=== PATIENT | female | born 1995 | race African-American/Black ===

== ENCOUNTER → 2016-10-14 | Outpatient (CLI) | payer MEDICARE, MEDICAID | LOC: RAD 12:25 | PROVIDERS: ATTEND Internal Medicine | DX: R05 Cough (principal); R06.02 Shortness of breath; M79.672 Pain in left foot; M84.375D Stress fracture, left foot, subsequent encounter for fracture with routine healing; X58.XXXD Exposure to other specified factors, subsequent encounter | CPT/HCPCS: 71020 ==

== ENCOUNTER 2016-11-02 07:39 | Inpatient (IN) | payer MEDICARE, MEDICAID ==
--- NOTE | 2016-11-02 09:10 | ER Document Report ---
ED GI/ - General Chief Complaint: Nausea/Vomiting Stated Complaint: BODY PAIN Time seen by provider: 09:10 Mode of Arrival: Ambulatory Information source: Patient Notes: 21 yo vikram with chronic pain due to Lupus, saw dr. Ku on , dx with pneumonia but has been unable to keep the levoquin down due to nausea, vomiting. 7 pound weight loss since last week. No diarrhea or abd pain. Congested cough. TRAVEL OUTSIDE OF THE [place] IN LAST 30 DAYS: No - Related Data Allergies/Adverse Reactions: shellfish derived Allergy (Severe, Verified 11/02/16 07:55) Anaphylaxis ketorolac tromethamine [From Toradol] Allergy (Intermediate, Verified 11/02/16 07:55) Hives morphine [Morphine] Allergy (Intermediate, Verified 11/02/16 07:55) Hives sulfamethoxazole [From Bactrim] Allergy (Unknown, Verified 11/02/16 07:55) Pruritis trimethoprim [From Bactrim] Allergy (Unknown, Verified 11/02/16 07:55) Pruritis belimumab [From Benlysta] Allergy (Verified 11/02/16 07:55) rash Home Medications: Current Home Medications Albuterol Sulfate [Ventolin Hfa] 2 puff PO ASDIR PRN 11/02/16 [History] Atenolol [Tenormin] 25 mg PO DAILY 11/02/16 [History] Butalb/Acetaminophen/Caffeine [Fioricet (50-325-40 mg) Tablet] 1 tab PO ASDIR PRN 11/02/16 [History] Clobetasol Propionate [Clobetasol Propionate Cream] 1 applic TOP ASDIR PRN 11/02 [History] Clonidine HCl [Catapres 0.3 mg Tablet] 0.3 mg PO TID 11/02/16 [History] Eszopiclone [Lunesta] 3 mg PO HSP PRN 11/02/16 [History] Fluticasone Propionate [Flonase Nasal [place] 50 Mcg/[place] 16 gm] 1 spray NASL ASDIR PRN 11/02/16 [History] Fondaparinux Sodium [Arixtra Inj 2.5 mg/0.5 ml Disp.syrin] 2.5 mg SQ DAILY 11/02 [History] Hydroxychloroquine Sulfate [Plaquenil 200 mg Tablet] 200 mg PO DAILY 11/02/16 [ History] Hydroxyzine HCl [Atarax 50 mg Tablet] 50 mg PO ASDIR PRN 11/02/16 [History] Levetiracetam [Keppra] 7.5 ml PO BID 11/02/16 [History] Metoprolol Tartrate [Lopressor 50 mg Tablet] 50 mg PO BID 11/02/16 [History] Nystatin/Dexameth/Diphen [Magic Mouthwash] 5 ml PO QID 11/02/16 [History] Ondansetron HCl [Zofran 8 mg Tablet] 8 mg PO PRN PRN 11/02/16 [History] Oxycodone HCl/Acetaminophen [Percocet 10-325 mg Tablet] 1 tab PO QID 11/02/16 [ History] Pantoprazole Sodium [Protonix] 40 mg PO QAM 11/02/16 [History] Prednisone 20 mg PO DAILY 11/02/16 [History] Promethazine HCl [Phenergan 25 mg Tablet] 25 mg PO PRN PRN 11/02/16 [History] Tizanidine HCl [Zanaflex 4 mg Tablet] 8 mg PO QIDP PRN 11/02/16 [History] Zolpidem Tartrate [Ambien] 10 mg PO QHS 11/02/16 [History] Past Medical History - General Information source: Patient - Social History Smoking Status: Never Smoker Chew tobacco use (# tins/day): No Frequency of alcohol use: None Drug Abuse: None Family History: Reviewed & Not Pertinent Patient has suicidal ideation: No Patient has homicidal ideation: No - Past Medical History Cardiac Medical History: Reports: Hx DVT - INF. 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 Denies: Hx Hysterectomy - Immunizations Immunizations up to date: Yes Hx Diphtheria, Pertussis, Tetanus Vaccination: Yes Hx Pneumococcal Vaccination: 10/04/14 Review of Systems - Review of Systems Constitutional: Weight loss, Recent illness EENT: No symptoms reported Cardiovascular: No symptoms reported Respiratory: See HPI Gastrointestinal: See HPI Genitourinary: No symptoms reported Female Genitourinary: No symptoms reported Musculoskeletal: No symptoms reported Skin: No symptoms reported Hematologic/Lymphatic: No symptoms reported Neurological/Psychological: No symptoms reported Physical Exam - Vital signs Vitals: Temp Pulse Resp BP Pulse Ox 99.1 F 112 H 20 108/71 95 11/02/16 07:58 11/02/16 07:58 11/02/16 07:58 11/02/16 07:58 11/02/16 07:58 Interpretation: Tachycardic - General General appearance: Alert Notes: very thin, congested cough - HEENT Head: Normocephalic, Atraumatic Eyes: Normal Pupils: PERRL Tympanic membrane: Normal Pharynx: Normal Neck: Supple - Respiratory Respiratory status: No respiratory distress Chest status: Nontender Breath sounds: Rhonchi - right Chest palpation: Normal - Cardiovascular Rhythm: Regular Heart sounds: Normal auscultation Murmur: No - Abdominal Inspection: Normal Distension: No distension Bowel sounds: Normal Tenderness: Nontender. No: Tender - colostomy bag on chronic leaking from gasrostomy tub Organomegaly: No organomegaly - Back Back: Normal, Nontender. No: CVA tenderness - Extremities General upper extremity: Normal inspection, Nontender, Normal color, Normal ROM , Normal temperature General lower extremity: Normal inspection, Nontender, Normal color, Normal ROM , Normal temperature, Normal weight bearing. No: Darby's sign - Neurological Neuro grossly intact: Yes Cognition: Normal Orientation: AAOx4 [place] Coma Scale Eye Opening: Spontaneous Shawn Coma Scale Verbal: Oriented Shawn Coma Scale Motor: Obeys Commands [place] Coma Scale Total: 15 Speech: Normal Motor strength normal: LUE, RUE, LLE, RLE Sensory: Normal - Psychological Associated symptoms: Normal affect, Normal mood - Skin Skin Temperature: Warm Skin Moisture: Dry Skin Color: Normal Skin irregularity: negative: Rash Course - Re-evaluation Re-evalutation: 11/02/16 11:41 I have consulted with the supervisory physician dr. burgess per [facility] Guidelines. 11/02/16 11:45 dr. andujar will admit Roque Wade MD and he saw Rosario on and an emergency basis because she was at Dr. Graf patient who has left. He told me to call the hospitalist for admission [facility]. 11/02/16 11:48 Pulse is [address] the patient on cardiac monitoring. - Vital Signs Vital signs: Temp Pulse Resp BP Pulse Ox 98.5 F 114 H 16 147/119 H 100 11/03/16 11:09 11/03/16 11:09 11/03/16 11:09 11/03/16 11:09 11/03/16 11:09 - Laboratory Result Diagrams: 11/03/16 06:25 11/03/16 06:25 Laboratory results interpreted by me: 11/02/16 11/02/16 11/02/16 09:50 09:51 09:55 WBC 19.4 H RBC 3.37 L Hgb 9.9 L Hct 30.1 L Seg Neutrophils % 84.1 H Lymphocytes % 5.5 L Absolute Neutrophils 16.3 H Absolute Monocytes 2.0 H Potassium 3.5 L Calcium 8.3 L Alkaline Phosphatase 156 H Total Protein 9.3 H Albumin 2.6 L Urine Protein 30 H Urine Ketones 20 H Ur Leukocyte Esterase LARGE H Discharge - Discharge Clinical Impression: Tachycardia, Weight loss RLL pneumonia Qualifiers: Pneumonia type: due to unspecified organism Qualified Code(s): J18.1 - Lobar pneumonia, unspecified organism Nausea and vomiting Qualifiers: Vomiting type: unspecified Vomiting Intractability: non-intractable Qualified Code(s): R11.2 - Nausea with vomiting, unspecified Systemic lupus erythematosus Qualifiers: Systemic lupus erythematosus type: unspecified Systemic lupus erythematosus organ involvement: unspecified Qualified Code(s): M32.9 - Systemic lupus erythematosus, unspecified Condition: Stable Disposition: ADMITTED INPATIENT Admitting Provider: Hospitalist Unit Admitted: [facility]
[2016-11-02] MEDS ORDERED: HYDROMORPHONE HCL INJ/PF 2 MG/ML AMPULE IV ONE ×2 (09:11→11:38)
[2016-11-02] MEDS ORDERED: NORMAL SALINE 1000 ML 2,000 ML IV ONE (09:11)
[2016-11-02] MEDS ORDERED: ONDANSETRON HCL INJ/PF 4 MG/2 ML SDV IV ONE (09:11)
[2016-11-02 10:14] LABS: ABSOLUTE LYMPHOCYTES (AUTO) 1.1 10^3/uL (0.5-4.7); ABSOLUTE NEUT (AUTO) 16.3 10^3/uL (1.7-8.2); BASOPHILS % (AUTO) 0.1 % (0-2); EOSINOPHILS % (AUTO) 0.2 % (0-6); HEMATOCRIT 30.1 % (36.0-47.0); HEMOGLOBIN 9.9 g/dL (12.0-15.5); HGB HCT DIFFERENCE -0.4; LYMPHOCYTES % (AUTO) 5.5 % (13-45); MEAN CORPUSCULAR HEMOGLOBIN 29.4 pg (27.0-33.4); MEAN CORPUSCULAR HGB CONC 32.9 g/dL (32.0-36.0); MEAN CORPUSCULAR VOLUME 89 fl (80-97); MONOCYTES % (AUTO) 10.1 % (3-13); RED BLOOD COUNT 3.37 10^6/uL (3.72-5.28); SEGMENTED NEUTROPHILS % (AUTO) 84.1 % (42-78); WHITE BLOOD COUNT 19.4 10^3/uL (4.0-10.5)
[2016-11-02 10:27] LABS: APPEARANCE,URINE SLIGHTLY-CLOUDY; BILIRUBIN,URINE NEGATIVE (NEGATIVE); GLUCOSE, URINE NEGATIVE (NEGATIVE); KETONES,URINE 20 mg/dL (NEGATIVE); LEUKOCYTE ESTERASE,URINE LARGE (NEGATIVE); NITRITE,URINE NEGATIVE (NEGATIVE); PROTEIN,URINE 30 mg/dL (NEGATIVE); UROBILINOGEN,URINE NEGATIVE mg/dL (<2.0)
[2016-11-02 10:27] LABS: ALANINE AMINOTRANSFERASE 13 U/L (9-52); ALBUMIN 2.6 g/dL (3.5-5.0); ALKALINE PHOSPHATASE 156 U/L (38-126); ANION GAP 14 (5-19); ASPARTATE AMINO TRANSFERASE 14 U/L (14-36); BILIRUBIN,TOTAL 0.6 mg/dL (0.2-1.3); BLOOD UREA NITROGEN 8 mg/dL (7-20); CALCIUM 8.3 mg/dL (8.4-10.2); CARBON DIOXIDE 25 mmol/L (22-30); CHLORIDE 102 mmol/L (98-107); CREATININE RESULT 0.54 mg/dL (0.52-1.25); GLUCOSE 86 mg/dL (75-110); LIPASE 23.7 U/L (23-300); POTASSIUM 3.5 mmol/L (3.6-5.0); SODIUM 140.9 mmol/L (137-145); TOTAL PROTEIN 9.3 g/dL (6.3-8.2)
[2016-11-02] MEDS ORDERED: DIPHENHYDRAMINE HCL 50 MG/ML VIAL IV ONE (10:44)
[2016-11-02] MEDS ORDERED: LEVOFLOXACIN 750 MG/D5W RTU 150 ML IV ONE (10:57)
[2016-11-02] MEDS ORDERED: ALBUTEROL SULFATE 0.083% NEB 2.5 MG/3 ML AMPUL NEB ONE (11:02)
[2016-11-02] MEDS ORDERED: FLUTICASONE NASAL SPRAY 50 MCG/SPRY 120 SPRAY/16 GM NASL PRN (13:40)
[2016-11-02] MEDS ORDERED: ACETAMINOPHEN 325 MG TABLET PO PRN (13:43)
[2016-11-02] MEDS ORDERED: LEVETIRACETAM INJ/PF 500 MG/5 ML SDV IV SCH (13:45)
[2016-11-02] MEDS ORDERED: CEFEPIME 2 GM/D5W RTU 50 ML IV SCH (13:45)
[2016-11-02] MEDS ORDERED: VANCOMYCIN HCL INJ 1000 MG VIAL IV SCH (14:00)
--- NOTE | 2016-11-02 14:18 | PDOC H&P ---
History of Present Illness Admission Date/PCP: 11/02/16 12:10 KIKA LIU, Patient complains of: Nausea vomiting and shortness of breath and generalized weakness History of Present Illness: JOSE DUMONT is a 21 year old female, with history of SLE, hypertension and seizure disorder, pulmonary embolism and deep venous thrombosis on chronic anticoagulation with Arixtra as well as chronic steroid therapy and apparently has been dealing with pneumonia for the past 2 months. It was first diagnosed on August the patient had a course of antibiotic which did not completely resolve the symptoms. The patient has some coughing with some blood-tinged phlegm, shortness of breath, intermittent fever and sweating. Another course of antibiotic was given to the patient last month but she started to develop nausea and vomiting and the patient was not able to complete the course of the medication. There is no associated diarrhea. There is dysuria urgency or frequency. No vaginal discharge or bleeding. The patient has a colostomy bag but it was intended for an open wound from a previous gastrostomy site that is not healing. A secondary closure was planned however it has not been accomplished up-to-date. In the emergency room the patient was tachycardic, WBC was 19,000, chest x-ray revealed infiltrate of the right lower lobe. The patient was given albuterol, Levaquin, and 2 L of normal saline bolus. Patient remained tachycardic. Patient was then referred for admission. Past Medical History Past Medical History: Medication reconciliation pending verification from the patient's pharmacist. Cardiac Medical History: Reports: DVT - INF. VENA CAVA, Hypertension - MEDS X 2 YRS /usually low, Pulmonary Embolism Denies: Coronary Artery Disease, Myocardial Infarction Pulmonary Medical History: Reports: Asthma - Pediatric, Pneumonia Denies: Bronchitis, Chronic Obstructive Pulmonary Disease (COPD), Tuberculosis Neurological Medical History: Reports: Migraine, Seizures - Last episode 06/25/16 GI Medical History: Reports: Gastroesophageal Reflux Disease Musculoskeltal Medical History: Reports: Arthritis - Lupus Psychiatric Medical History: Reports: Depression Hematology: Reports: Anemia Past Surgical History Past Surgical History: Reports: Other - PEG placement Denies: Hysterectomy Social History Information Source: Patient Smoking Status: Never Smoker Frequency of Alcohol Use: None Hx Recreational Drug Use: No Drugs: None Hx Prescription Drug Abuse: No Family History Family History: Hypertension, Other - Lupus Parental Family History Reviewed: Yes Children Family History Reviewed: Yes Sibling(s) Family History Reviewed.: Yes Medication/Allergy Home Medications: Olanzapine [Zyprexa 5 mg Tablet] 2.5 mg PO BID 06/26/16 Pantoprazole Sodium [Protonix] 40 mg PO DAILY 06/26/16 Albuterol Sulfate [Ventolin Hfa] 2 puff IH ASDIR PRN 09/17/16 Atenolol [Tenormin] 25 mg PO DAILY 09/17/16 Betasol Cream 1 dose TOP ASDIR PRN 09/17/16 Butalb/Acetaminophen/Caffeine [Fioricet (50-325-40 mg) Tablet] 1 tab PO ASDIR PRN 09/17/16 Clonidine HCl 1 tab PO TID 09/17/16 Cranberry Fruit Extract [Cranberry] 600 mg PO DAILY 09/17/16 Fluticasone Propionate [Flonase Nasal [place] 50 Mcg/[place] 16 gm] 1 spray NASL ASDIR PRN 09/17/16 Fluticasone/Salmeterol [Advair 250-50 Diskus 28 dose] 2 puff IH BID 09/17/16 Gabapentin 900 mg PO TID 09/17/16 Hydroxychloroquine Sulfate [Plaquenil 200 mg Tablet] 1 tab PO DAILY 09/17/16 Hydroxyzine HCl [Atarax 50 mg Tablet] 1 tab PO ASDIR PRN 09/17/16 Levetiracetam [Keppra] 7.5 ml PO BID 09/17/16 Metoprolol Tartrate [Lopressor] 50 mg PO BID 09/17/16 Multivitamin [Multivitamins] 1 tab PO DAILY 09/17/16 Nystatin/Dexameth/Diphen [Magic Mouthwash (Omh Formula) Susp] 5 ml PO QID PRN Ondansetron HCl [Zofran 8 mg Tablet] 1 tab PO ASDIR PRN 09/17/16 Prednisone [Deltasone 20 mg Tablet] 1 tab PO DAILY 09/17/16 Promethazine HCl [Phenergan 25 mg Tablet] 1 tab PO ASDIR PRN 09/17/16 Tizanidine HCl [Zanaflex 4 mg Tablet] 8 mg PO TID PRN 09/17/16 Vitamin B 1 1 tab PO DAILY 09/17/16 Zolpidem Tartrate [Ambien] 10 mg PO QHS 09/17/16 Fondaparinux Sodium [Arixtra Inj 2.5 mg/0.5 ml Disp.syrin] 2.5 mg SQ DAILY 09/24 Allergies/Adverse Reactions: shellfish derived Allergy (Severe, Verified 11/02/16 07:55) Anaphylaxis ketorolac tromethamine [From Toradol] Allergy (Intermediate, Verified 11/02/16 07:55) Hives morphine [Morphine] Allergy (Intermediate, Verified 11/02/16 07:55) Hives sulfamethoxazole [From Bactrim] Allergy (Unknown, Verified 11/02/16 07:55) Pruritis trimethoprim [From Bactrim] Allergy (Unknown, Verified 11/02/16 07:55) Pruritis belimumab [From Benlysta] Allergy (Verified 11/02/16 07:55) rash Review of Systems Constitutional: PRESENT: chills, fatigue - Generalized, fever(s), weakness - Generalized, weight loss - Unquantified. ABSENT: headache(s), weight gain Eyes: ABSENT: visual disturbances Ears: ABSENT: hearing changes Nose, Mouth, and Throat: PRESENT: sore throat - On and off which is chronic, no thrush. ABSENT: mouth pain Cardiovascular: PRESENT: dyspnea on exertion. ABSENT: chest pain, edema, orthropnea, palpitations Respiratory: PRESENT: cough, dyspnea, hemoptysis, sputum Gastrointestinal: PRESENT: nausea, vomiting. ABSENT: abdominal pain, constipation, diarrhea, hematemesis, hematochezia, melena Genitourinary: PRESENT: difficulty urinating, dysuria. ABSENT: hematuria Musculoskeletal: ABSENT: joint swelling Integumentary: ABSENT: pruritus, rash, wounds Neurological: ABSENT: abnormal gait, abnormal speech, confusion, dizziness, focal weakness, syncope Psychiatric: PRESENT: anxiety, depression. ABSENT: homidical ideation, suicidal ideation Endocrine: ABSENT: cold intolerance, heat intolerance, polydipsia, polyuria Hematologic/Lymphatic: ABSENT: easy bleeding, easy bruising Physical Exam Vital Signs: Temp Pulse Resp BP Pulse Ox 99.1 F 161 H 20 111/69 97 11/02/16 11:32 11/02/16 11:32 11/02/16 11:32 11/02/16 11:32 11/02/16 11:32 General appearance: PRESENT: no acute distress, cooperative, thin Head exam: PRESENT: atraumatic, normocephalic Eye exam: PRESENT: conjunctiva pale, EOMI, PERRLA. ABSENT: periorbital swelling , scleral icterus Ear exam: PRESENT: normal external ear exam. ABSENT: drainage Mouth exam: PRESENT: dry mucosa, neck supple, tongue midline Throat exam: PRESENT: other - No thrush. ABSENT: post pharyngeal erythema, tonsillar erythema, tonsillar exudate Neck exam: ABSENT: carotid bruit, JVD, lymphadenopathy, thyromegaly Respiratory exam: PRESENT: clear to auscultation tavia - Anteriorly, decreased breath sounds - Lower lung man. ABSENT: rales, rhonchi, wheezes Cardiovascular exam: PRESENT: RRR, tachycardia. ABSENT: diastolic murmur, rubs , systolic murmur Pulses: PRESENT: normal dorsalis pedis pul Vascular exam: PRESENT: normal capillary refill GI/Abdominal exam: PRESENT: normal bowel sounds, soft, tenderness - Lower quadrants, other - Colostomy bag in place, I did not see any purulent drainage or foul smelling drainage around the gastrostomy wound site. ABSENT: distended , guarding, mass - Limited due to tenderness, organolmegaly, rebound Rectal exam: PRESENT: deferred Extremities exam: PRESENT: full ROM. ABSENT: calf tenderness, clubbing, pedal edema Neurological exam: PRESENT: alert, awake, oriented to person, oriented to place , oriented to time, oriented to situation Psychiatric exam: PRESENT: appropriate affect, normal mood. ABSENT: homicidal ideation, suicidal ideation Skin exam: PRESENT: dry, intact, warm. ABSENT: cyanosis, rash Results Impressions: Chest X-Ray 11/02/16 09:36 IMPRESSION: New infiltrate right lung base. Assessment & Plan - Diagnosis (1) RLL pneumonia Qualifiers: Pneumonia type: due to unspecified organism Qualified Code(s): J18.1 - Lobar pneumonia, unspecified organism Is this a current diagnosis for this admission?: Yes (2) SIRS (systemic inflammatory response syndrome) Is this a current diagnosis for this admission?: Yes (3) UTI (urinary tract infection) Qualifiers: Urinary tract infection type: acute cystitis Hematuria presence: without hematuria Qualified Code(s): N30.00 - Acute cystitis without hematuria Is this a current diagnosis for this admission?: Yes (4) Hypokalemia Is this a current diagnosis for this admission?: Yes (5) Anemia of chronic disease Is this a current diagnosis for this admission?: Yes (6) Hypertension Qualifiers: Hypertension type: essential hypertension Qualified Code(s): I10 - Essential (primary) hypertension Is this a current diagnosis for this admission?: Yes (7) Lupus Qualifiers: Systemic lupus erythematosus type: unspecified Systemic lupus erythematosus organ involvement: unspecified Qualified Code(s): M32.9 - Systemic lupus erythematosus, unspecified Is this a current diagnosis for this admission?: Yes (8) Abdominal pain Qualifiers: Abdominal location: generalized Qualified Code(s): R10.84 - Generalized abdominal pain Is this a current diagnosis for this admission?: Yes (9) Asthma Qualifiers: Asthma complication type: uncomplicated Is this a current diagnosis for this admission?: Yes (10) Migraine headache Qualifiers: Migraine type: unspecified Intractability: not intractable Is this a current diagnosis for this admission?: Yes (11) GERD (gastroesophageal reflux disease) Qualifiers: Esophagitis presence: without esophagitis Qualified Code(s): K21.9 - Gastro-esophageal reflux disease without esophagitis Is this a current diagnosis for this admission?: Yes (12) Seizure Is this a current diagnosis for this admission?: Yes - Time Time Spent: 50 to 70 Minutes - Inpatient Certification Based on my medical assessment, after consideration of the patient's comorbidities, presenting symptoms, or acuity I expect that the services needed warrant INPATIENT care.: Yes I certify that my determination is in accordance with my understanding of Medicare's requirements for reasonable and necessary INPATIENT services [42 CFR 412.3e].: Yes Medical Necessity: Significant Comorbidiites Make Outpatient Treatment Too Risky , Need Close Monitoring Due to Risk of Patient Decompensation, Need For IV Fluids, Need for IV Antibiotics, Risk of Complication if Not Cared For in Hospital Post Hospital Care: D/C Chief Technician Documentation - Plan Summary Plan Summary: The patient will be admitted to [facility]. Blood cultures sputum culture and urine cultures were sent. We will begin the patient on broad-spectrum antibiotic intravenously including vancomycin. I will obtain a CT of the abdomen and pelvis to evaluate her abdominal discomfort and pain as well as nausea and vomiting. I will begin stress doses of steroids due to chronic prednisone intake. I will likewise given her Keppra intravenously she is vomiting at this time. She is already on Arixtra long-term. We will replace potassium and monitor. We will monitor hematocrit as well. I will hold antihypertensive medication at this time. I will continue her lupus medications. Further testing depends on the initial evaluation and response to treatment as outlined above.
[2016-11-02] MEDS: POTASSI CL 20 MEQ/50 ML RIDER 50 ML IV SCH ×2 (14:41→20:08)
[2016-11-02] MEDS: NORMAL SALINE 1000 ML 1,000 ML IV PRN (14:42)
[2016-11-02] MEDS: ONDANSETRON HCL INJ/PF 4 MG/2 ML SDV IV PRN ×2 (14:59→21:22)
[2016-11-02] MEDS ORDERED: VANCOMYCIN HCL 1,000 MG in DEXTROSE 5%-WATER 250 ML IV ONE (16:00)
[2016-11-02] MEDS: HYDROCORTISONE SOD SUCCINATE INJ/PF 100 MG/2 ML SDV IV SCH ×2 (16:40→21:26)
[2016-11-02] MEDS: HYDROMORPHONE HCL INJ/PF 2 MG/ML AMPULE IV PRN ×2 (16:41→21:35)
[2016-11-02] MEDS: GABAPENTIN 300 MG CAPSULE PO SCH ×2 (16:41→21:21)
[2016-11-02] MEDS ORDERED: CEFEPIME HCL 2 GM in DEXTROSE 5%-WATER 50 ML IV SCH (18:00)
[2016-11-02] MEDS: LEVALBUTEROL HCL NEB 1.25 MG/3 ML AMPUL NEB PRN (18:37)
[2016-11-02] MEDS ORDERED: METOPROLOL TARTRATE PF/INJ 5 MG/5 ML SDV IV PRN (18:39)
[2016-11-02] MEDS ORDERED: NORMAL SALINE 1000 ML 1,000 ML IV ONE (19:00)
[2016-11-02] MEDS ORDERED: POTASSIUM CHLORIDE 20 MEQ/50 ML RTU IV ONE (20:30)
[2016-11-02] MEDS: GUAIFENESIN 600 MG TABLET.SA PO SCH (21:21)
[2016-11-02] MEDS: FAMOTIDINE INJ/PF 20 MG/2 ML SDV IV SCH (21:29)
[2016-11-02] MEDS: FLUTICASONE/SALMETEROL DISKUS 250-50 MCG/DOSE IH SCH (21:34)
[2016-11-02] MEDS ORDERED: LEVETIRACETAM 750 MG in NORMAL SALINE 100 ML IV SCH (22:00)
[2016-11-03] MEDS: NORMAL SALINE 1000 ML 1,000 ML IV PRN ×3 (00:02→20:39)
[2016-11-03] MEDS: CEFEPIME HCL 2 GM in DEXTROSE 5%-WATER 50 ML IV SCH ×3 (00:37→21:52)
[2016-11-03] MEDS: ONDANSETRON HCL INJ/PF 4 MG/2 ML SDV IV PRN ×5 (01:21→20:38)
[2016-11-03] MEDS: HYDROMORPHONE HCL INJ/PF 2 MG/ML AMPULE IV PRN ×5 (01:25→20:35)
[2016-11-03] MEDS: VANCOMYCIN HCL 500 MG in DEXTROSE 5%-WATER 100 ML IV SCH ×3 (02:14→16:46)
[2016-11-03] MEDS: HYDROCORTISONE SOD SUCCINATE INJ/PF 100 MG/2 ML SDV IV SCH ×4 (02:19→20:36)
[2016-11-03] MEDS: GABAPENTIN 300 MG CAPSULE PO SCH ×3 (06:29→21:56)
[2016-11-03 06:40] LABS: ABSOLUTE LYMPHOCYTES (AUTO) 0.7 10^3/uL (0.5-4.7); ABSOLUTE MONOCYTES (AUTO) 0.1 10^3/uL (0.1-1.4); ABSOLUTE NEUT (AUTO) 4.3 10^3/uL (1.7-8.2); BASOPHILS % (AUTO) 0.3 % (0-2); HEMATOCRIT 26.9 % (36.0-47.0); HEMOGLOBIN 8.8 g/dL (12.0-15.5); HGB HCT DIFFERENCE -0.5; LYMPHOCYTES % (AUTO) 13.2 % (13-45); MEAN CORPUSCULAR HEMOGLOBIN 29.3 pg (27.0-33.4); MEAN CORPUSCULAR HGB CONC 32.7 g/dL (32.0-36.0); MEAN CORPUSCULAR VOLUME 90 fl (80-97); MONOCYTES % (AUTO) 2.5 % (3-13); RED BLOOD COUNT 3.01 10^6/uL (3.72-5.28); RED CELL DISTRIBUTION WIDTH 14.2 % (11.5-14.0); WHITE BLOOD COUNT 5.1 10^3/uL (4.0-10.5)
[2016-11-03 07:06] LABS: ANION GAP 10 (5-19); BLOOD UREA NITROGEN 3 mg/dL (7-20); CALCIUM 8.2 mg/dL (8.4-10.2); CARBON DIOXIDE 27 mmol/L (22-30); CHLORIDE 105 mmol/L (98-107); CREATININE RESULT 0.42 mg/dL (0.52-1.25); GLUCOSE 136 mg/dL (75-110); SODIUM 141.6 mmol/L (137-145)
[2016-11-03] MEDS: GUAIFENESIN 600 MG TABLET.SA PO SCH ×2 (09:56→21:56)
[2016-11-03] MEDS: FONDAPARINUX SODIUM INJ 2.5 MG/0.5 ML DISP.SYRIN SUBCUT SCH (09:57)
[2016-11-03] MEDS: HYDROXYCHLOROQUINE SULFATE 200 MG TABLET PO SCH (09:57)
[2016-11-03] MEDS: FAMOTIDINE INJ/PF 20 MG/2 ML SDV IV SCH ×2 (09:59→21:55)
[2016-11-03] MEDS: FLUTICASONE/SALMETEROL DISKUS 250-50 MCG/DOSE IH SCH ×2 (09:59→21:55)
[2016-11-03] MEDS ORDERED: LEVOFLOXACIN 750 MG/D5W RTU 150 ML IV SCH (10:00)
[2016-11-03] MEDS ORDERED: DIPHENHYDRAMINE HCL 25 MG CAPSULE PO PRN (12:12)
[2016-11-03] MEDS ORDERED: ZOLPIDEM TARTRATE 5 MG TABLET PO PRN (12:14)
--- NOTE | 2016-11-03 12:19 | PDOC PROGRESS REPORT ---
Subjective Progress Note for:: 11/03/16 Subjective:: Complains of a nonproductive cough. Also complains of pain in her legs. Physical Exam Vital Signs: Temp Pulse Resp BP Pulse Ox 98.5 F 114 H 16 147/119 H 100 11/03/16 11:09 11/03/16 11:09 11/03/16 11:09 11/03/16 11:09 11/03/16 11:09 Intake & Output 11/02/16 11/03/16 11/04/16 06:59 06:59 06:59 Intake Total 5916 Output Total 1700 Balance 4216 Weight 43.6 kg General appearance: PRESENT: no acute distress Eye exam: PRESENT: conjunctiva pink. ABSENT: scleral icterus Mouth exam: PRESENT: dry mucosa Neck exam: ABSENT: JVD Respiratory exam: PRESENT: clear to auscultation tavia. ABSENT: rales, rhonchi, wheezes Cardiovascular exam: PRESENT: RRR. ABSENT: diastolic murmur, rubs, systolic murmur GI/Abdominal exam: PRESENT: normal bowel sounds, soft, other - Left upper quadrant has an ostomy bag in place over her gastrostomy site.. ABSENT: distended, guarding, mass, organolmegaly, rebound, tenderness Extremities exam: ABSENT: calf tenderness, clubbing, pedal edema Neurological exam: PRESENT: alert, awake, oriented to person, oriented to place , oriented to time, oriented to situation, CN II-XII grossly intact. ABSENT: motor sensory deficit Psychiatric exam: PRESENT: appropriate affect Skin exam: PRESENT: dry, intact, warm. ABSENT: cyanosis, rash Results Laboratory Results: 11/03/16 06:25 11/03/16 06:25 11/03/16 11/03/16 06:25 06:25 WBC 5.1 RBC 3.01 L Hgb 8.8 L Hct 26.9 L MCV 90 MCH 29.3 MCHC 32.7 RDW 14.2 H Plt Count 227 Seg Neutrophils % 84.0 H Lymphocytes % 13.2 Monocytes % 2.5 L Eosinophils % 0.0 Basophils % 0.3 Absolute Neutrophils 4.3 Absolute Lymphocytes 0.7 Absolute Monocytes 0.1 Absolute Eosinophils 0.0 Absolute Basophils 0.0 Sodium 141.6 Potassium 4.0 Chloride 105 Carbon Dioxide 27 Anion Gap 10 BUN 3 L Creatinine 0.42 L Est GFR ( Amer) > 60 Est GFR (Non-Af Amer) > 60 Glucose 136 H Calcium 8.2 L Impressions: Abdomen/Pelvis CT 11/02/16 00:00 IMPRESSION: 1. CORTICAL CYST IN THE RIGHT KIDNEY. CHRONIC VERTEBRAL COMPRESSION DEFORMITIES UNCHANGED. NO ACUTE FINDING IN THE ABDOMEN OR PELVIS ON CT SCAN WITH IV CONTRAST. 2. FAINT PATCHY DENSITIES IN THE RIGHT LUNG BASE, ATELECTASIS VERSUS EARLY INFILTRATE. Chest X-Ray 11/02/16 09:36 IMPRESSION: New infiltrate right lung base. Assessment & Plan - Diagnosis (1) RLL pneumonia Qualifiers: Pneumonia type: due to unspecified organism Qualified Code(s): J18.1 - Lobar pneumonia, unspecified organism Is this a current diagnosis for this admission?: YesPlan: The patient has minimal cough and exam shows minimal abnormality. We can hopefully switch over to oral Levaquin tomorrow and discharge home as she is not requiring oxygen at this time. She is immunosuppressed. (2) Asthma Qualifiers: Asthma complication type: uncomplicated Is this a current diagnosis for this admission?: YesPlan: Patient has no wheezing on exam today. (3) GERD (gastroesophageal reflux disease) Qualifiers: Esophagitis presence: without esophagitis Qualified Code(s): K21.9 - Gastro-esophageal reflux disease without esophagitis Is this a current diagnosis for this admission?: YesPlan: Patient reports that she's feeling better would like to advance her diet. (4) Hypertension Qualifiers: Hypertension type: essential hypertension Qualified Code(s): I10 - Essential (primary) hypertension Is this a current diagnosis for this admission?: YesPlan: Blood pressures elevated and we will start on Norvasc. (5) Hypokalemia Is this a current diagnosis for this admission?: YesPlan: Resolved. (6) Lupus Qualifiers: Systemic lupus erythematosus type: unspecified Systemic lupus erythematosus organ involvement: unspecified Qualified Code(s): M32.9 - Systemic lupus erythematosus, unspecified Is this a current diagnosis for this admission?: YesPlan: Continue with Plaquenil. (7) Migraine headache Qualifiers: Migraine type: unspecified Intractability: not intractable Is this a current diagnosis for this admission?: Yes (8) Seizure Is this a current diagnosis for this admission?: YesPlan: Patient has not had any seizures overnight. (9) Anemia Qualifiers: Anemia type: iron deficiency Is this a current diagnosis for this admission?: YesPlan: Hemoglobin has dropped overnight. We'll continue to monitor closely. (10) Pulmonary HTN Is this a current diagnosis for this admission?: Yes - Time Time Spent with patient: 25-34 minutes - Inpatient Certification Medical Necessity: Need for IV Antibiotics
[2016-11-03] MEDS ORDERED: AMLODIPINE BESYLATE 5 MG TABLET PO ONE (13:15)
[2016-11-03] MEDS: LEVALBUTEROL HCL NEB 1.25 MG/3 ML AMPUL NEB PRN ×2 (14:35→22:16)
[2016-11-03] MEDS: LEVETIRACETAM 750 MG in NORMAL SALINE 100 ML IV SCH (15:37)
[2016-11-04] MEDS ORDERED: CLONIDINE HCL 0.1 MG TABLET ONE (00:22)
[2016-11-04] MEDS: VANCOMYCIN HCL 500 MG in DEXTROSE 5%-WATER 100 ML IV SCH ×2 (00:29→08:28)
[2016-11-04] MEDS: HYDROMORPHONE HCL INJ/PF 2 MG/ML AMPULE IV PRN ×4 (00:30→12:44)
[2016-11-04] MEDS: ONDANSETRON HCL INJ/PF 4 MG/2 ML SDV IV PRN ×4 (00:31→12:44)
[2016-11-04] MEDS ORDERED: CLONIDINE HCL 0.1 MG TABLET PO ONE (01:00)
[2016-11-04] MEDS: HYDROCORTISONE SOD SUCCINATE INJ/PF 100 MG/2 ML SDV IV SCH ×2 (02:42→08:29)
[2016-11-04] MEDS: LEVETIRACETAM 750 MG in NORMAL SALINE 100 ML IV SCH (03:57)
[2016-11-04] MEDS: NORMAL SALINE 1000 ML 1,000 ML IV PRN (06:16)
[2016-11-04] MEDS: GABAPENTIN 300 MG CAPSULE PO SCH (06:17)
[2016-11-04] MEDS ORDERED: ATENOLOL 50 MG TABLET PO ONE (08:30)
[2016-11-04 08:34] LABS: ABSOLUTE LYMPHOCYTES (AUTO) 0.7 10^3/uL (0.5-4.7); ABSOLUTE MONOCYTES (AUTO) 0.5 10^3/uL (0.1-1.4); ABSOLUTE NEUT (AUTO) 4.4 10^3/uL (1.7-8.2); BASOPHILS % (AUTO) 0.1 % (0-2); HEMATOCRIT 27.8 % (36.0-47.0); HEMOGLOBIN 9.1 g/dL (12.0-15.5); HGB HCT DIFFERENCE -0.5; LYMPHOCYTES % (AUTO) 12.4 % (13-45); MEAN CORPUSCULAR HEMOGLOBIN 29.5 pg (27.0-33.4); MEAN CORPUSCULAR HGB CONC 32.7 g/dL (32.0-36.0); MEAN CORPUSCULAR VOLUME 90 fl (80-97); MONOCYTES % (AUTO) 9.3 % (3-13); RED BLOOD COUNT 3.07 10^6/uL (3.72-5.28); RED CELL DISTRIBUTION WIDTH 14.3 % (11.5-14.0); SEGMENTED NEUTROPHILS % (AUTO) 78.2 % (42-78); WHITE BLOOD COUNT 5.6 10^3/uL (4.0-10.5)
[2016-11-04 08:58] LABS: ANION GAP 11 (5-19); BLOOD UREA NITROGEN 4 mg/dL (7-20); CALCIUM 8.1 mg/dL (8.4-10.2); CARBON DIOXIDE 33 mmol/L (22-30); CHLORIDE 100 mmol/L (98-107); CREATININE RESULT 0.43 mg/dL (0.52-1.25); GLUCOSE 164 mg/dL (75-110); POTASSIUM 3.5 mmol/L (3.6-5.0); SODIUM 143.7 mmol/L (137-145)
[2016-11-04] MEDS ORDERED: AMLODIPINE BESYLATE 5 MG TABLET PO SCH (10:00)
[2016-11-04] MEDS ORDERED: CLONIDINE HCL 0.1 MG TABLET PO SCH (10:00)
[2016-11-04] MEDS ORDERED: ATENOLOL 50 MG TABLET PO SCH ×2 (10:00→22:00)
[2016-11-04] MEDS: CEFEPIME HCL 2 GM in DEXTROSE 5%-WATER 50 ML IV SCH (11:06)
[2016-11-04] MEDS: FLUTICASONE/SALMETEROL DISKUS 250-50 MCG/DOSE IH SCH (11:06)
[2016-11-04] MEDS: GUAIFENESIN 600 MG TABLET.SA PO SCH (11:07)
[2016-11-04] MEDS: FONDAPARINUX SODIUM INJ 2.5 MG/0.5 ML DISP.SYRIN SUBCUT SCH (11:08)
[2016-11-04] MEDS: HYDROXYCHLOROQUINE SULFATE 200 MG TABLET PO SCH (11:08)
[2016-11-04] MEDS: FAMOTIDINE INJ/PF 20 MG/2 ML SDV IV SCH (11:08)
[2016-11-04 11:36] VITALS: BP 148/102
[2016-11-04] MEDS ORDERED: LEVOFLOXACIN 750 MG/D5W RTU 750 MG/150 ML RTUPB IV SCH (12:00)
--- NOTE | 2016-11-04 14:19 | PDOC DISCHARGE SUMMARY ---
General - Admit/Disc Date/PCP Admission Date/Primary Care Provider: 11/02/16 13:43 KIKA LIU, Discharge Date: 11/04/16 - Discharge Diagnosis (1) RLL pneumonia Is this a current diagnosis for this admission?: YesSummary: CULTURES have been negative up to date. Patient was initially treated with cefepime and vancomycin. She will be sent home with a 5 day course of Levaquin. She has not had any problems with hypoxia. (2) Asthma Is this a current diagnosis for this admission?: Yes (3) GERD (gastroesophageal reflux disease) Is this a current diagnosis for this admission?: Yes (4) Hypertension Is this a current diagnosis for this admission?: YesSummary: Patient's blood pressure has been elevated during this hospitalization. Her beta avery dose was increased and she was also started on Norvasc in addition to her usual antihypertensives. (5) Hypokalemia Is this a current diagnosis for this admission?: Yes (6) Lupus Is this a current diagnosis for this admission?: Yes (7) Migraine headache Is this a current diagnosis for this admission?: Yes (8) Seizure Is this a current diagnosis for this admission?: Yes (9) Anemia Is this a current diagnosis for this admission?: Yes (10) Pulmonary HTN Is this a current diagnosis for this admission?: Yes (11) Anticoagulated Is this a current diagnosis for this admission?: YesSummary: The patient has been on chronic anticoagulation because of history of pulmonary embolism. - Additional Information Discharge Diet: Cardiac Discharge Activity: Activity As Tolerated Home Medications: Albuterol Sulfate [Ventolin Hfa] 2 puff PO Q4HP PRN 11/02/16 Butalb/Acetaminophen/Caffeine [Fioricet (50-325-40 mg) Tablet] 1 tab PO ASDIR PRN 11/02/16 Clobetasol Propionate [Clobetasol Propionate Cream] 1 applic TOP BIDP PRN Clonidine HCl [Catapres 0.3 mg Tablet] 0.3 mg PO BID 11/02/16 Fluticasone Propionate [Flonase Nasal Ehrhardt 50 Mcg/Ehrhardt 16 gm] 1 spray NASL ASDIR PRN 11/02/16 Fondaparinux Sodium [Arixtra Inj 2.5 mg/0.5 ml Disp.syrin] 2.5 mg SQ DAILY 11/02 Hydroxychloroquine Sulfate [Plaquenil 200 mg Tablet] 200 mg PO DAILY 11/02/16 Levetiracetam [Keppra] 7.5 ml PO BID 11/02/16 Nystatin/Dexameth/Diphen [Magic Mouthwash] 5 - 10 ml PO Q6HP PRN 11/02/16 Prednisone 20 mg PO DAILY 11/02/16 Promethazine HCl [Phenergan 25 mg Tablet] 25 mg PO Q4HP PRN 11/02/16 Tizanidine HCl [Zanaflex 4 mg Tablet] 8 mg PO Q8HP PRN 11/02/16 Zolpidem Tartrate [Ambien] 10 mg PO QHS 11/02/16 Cetirizine HCl [Allergy] 10 mg PO DAILY 11/03/16 Fluticasone/Salmeterol [Advair 250-50 Diskus 14 Dose/Diskus] 1 inh IH Q12H 11/03 Gabapentin 900 mg PO TID 11/03/16 Guaifenesin [Mucinex] 1,200 mg PO BID 11/03/16 Hydroxyzine HCl 25 mg PO Q8 11/03/16 Omeprazole 40 mg PO DAILY 11/03/16 Ondansetron [Zofran Odt] 8 mg PO Q4HP PRN 11/03/16 Oxycodone HCl/Acetaminophen [Oxycodon-Acetaminophen 7.5-325] 1 each PO QIDP PRN 11/03/16 Amlodipine Besylate [Norvasc 5 mg Tablet] 5 mg PO DAILY #30 tablet 11/04/16 Atenolol [Tenormin 50 mg Tablet] 50 mg PO Q12 #60 tablet 11/04/16 Levofloxacin [Levaquin 750 mg Tablet] 750 mg PO DAILY #5 tablet 11/04/16 History of Present Illness History of Present Illness: JOSE DUMONT is a 21 year old female with a history of lupus on chronic immunosuppression as well as a history of pulmonary embolism for which she takes Arixtra who presented with a productive cough. Patient was diagnosed as having pneumonia. Patient previous had been treated as an outpatient in August with oral antibiotics and she has intermittently had problems since then. Hospital Course Hospital Course: 21-year-old female who was admitted with the diagnosis of pneumonia. The patient is a lupus patient who is on prednisone and Plaquenil for immunosuppression. The patient had been treated previously as an outpatient in August for pneumonia. She was admitted and started on cefepime and vancomycin. The patient had cultures drawn all of which have been negative so far. The patient was never hypoxic and was felt that she could be treated as an outpatient lab for formal cultures. The patient was changed to Levaquin and will complete a 5 day course as an outpatient. She also during this hospitalization had problems with hypertension. Her blood pressures became very elevated and her beta avery dose was increased and she was given Norvasc in addition to her usual antihypertensives. Patient's blood pressure on the day of discharge was down to 100 diastolic. She will follow up with her primary care doctor for her pneumonia as well as her blood pressures. Physical Exam Vital Signs: Temp Pulse Resp BP Pulse Ox 98.3 F 103 H 16 148/102 H 99 11/04/16 11:08 11/04/16 11:08 11/04/16 11:08 11/04/16 11:36 11/04/16 11:08 Intake & Output 11/03/16 11/04/16 11/05/16 06:59 06:59 06:59 Intake Total 5916 6741 Output Total 1700 4150 Balance 4216 2591 Weight 43.6 kg 46 kg General appearance: PRESENT: no acute distress Eye exam: PRESENT: conjunctiva pink. ABSENT: scleral icterus Mouth exam: PRESENT: moist, tongue midline Neck exam: ABSENT: JVD Respiratory exam: PRESENT: clear to auscultation tavia. ABSENT: rales, rhonchi, wheezes Cardiovascular exam: PRESENT: RRR. 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 ABSENT: distended, guarding, mass, organolmegaly, rebound, tenderness Extremities exam: ABSENT: calf tenderness, clubbing, pedal edema Neurological exam: PRESENT: alert, awake, oriented to person, oriented to place , oriented to time, oriented to situation, CN II-XII grossly intact. ABSENT: motor sensory deficit Skin exam: PRESENT: dry, intact, warm. ABSENT: cyanosis, rash Results Laboratory Results: 11/04/16 07:45 11/04/16 07:45 11/04/16 11/04/16 07:45 07:45 WBC 5.6 RBC 3.07 L Hgb 9.1 L Hct 27.8 L MCV 90 MCH 29.5 MCHC 32.7 RDW 14.3 H Plt Count 254 Seg Neutrophils % 78.2 H Lymphocytes % 12.4 L Monocytes % 9.3 Eosinophils % 0.0 Basophils % 0.1 Absolute Neutrophils 4.4 Absolute Lymphocytes 0.7 Absolute Monocytes 0.5 Absolute Eosinophils 0.0 Absolute Basophils 0.0 Sodium 143.7 Potassium 3.5 L Chloride 100 Carbon Dioxide 33 H Anion Gap 11 BUN 4 L Creatinine 0.43 L Est GFR ( Amer) > 60 Est GFR (Non-Af Amer) > 60 Glucose 164 H Calcium 8.1 L 11/02/16 20:05 Nasophary ([facility] Only) MRSA Surveillance Culture - Final NO MRSA RECOVERED Impressions: Abdomen/Pelvis CT 11/02/16 00:00 IMPRESSION: 1. CORTICAL CYST IN THE RIGHT KIDNEY. CHRONIC VERTEBRAL COMPRESSION DEFORMITIES UNCHANGED. NO ACUTE FINDING IN THE ABDOMEN OR PELVIS ON CT SCAN WITH IV CONTRAST. 2. FAINT PATCHY DENSITIES IN THE RIGHT LUNG BASE, ATELECTASIS VERSUS EARLY INFILTRATE. Chest X-Ray 11/02/16 09:36 IMPRESSION: New infiltrate right lung base. Qualifiers PATEINT BEING DISCHARGED WITH ANY OF THE FOLLOWING DIAGNOSIS?: No Plan Discharge Plan: Patient is discharged home with home health will follow up with her primary care doctor in 2 weeks. Time Spent: Greater than 30 Minutes
[2016-11-04] MEDS: LEVALBUTEROL HCL NEB 1.25 MG/3 ML AMPUL NEB PRN (14:35)
== END 2016-11-04 15:33 | disposition home or self-care (01) | DRG 195 ==
LOC: ER 07:39 → EH 12:10 → UNDOADMIN 12:10 → EH 13:43 → 3W 17:35
PROC: 3E0F73Z Introduction of Anti-inflammatory into Respiratory Tract, Via Natural or Artificial Opening (ICD-10-PCS; principal; 2016-11-02)
DX: J18.9 Pneumonia, unspecified organism (principal); M32.9 Systemic lupus erythematosus, unspecified; I10 Essential (primary) hypertension; K21.9 Gastro-esophageal reflux disease without esophagitis; F41.9 Anxiety disorder, unspecified; F32.9 Major depressive disorder, single episode, unspecified; D64.9 Anemia, unspecified; E87.6 Hypokalemia; G40.909 Epilepsy, unspecified, not intractable, without status epilepticus; I27.2 Other secondary pulmonary hypertension; G43.909 Migraine, unspecified, not intractable, without status migrainosus; T81.89XA Other complications of procedures, not elsewhere classified, initial encounter; Y83.8 Other surgical procedures as the cause of abnormal reaction of the patient, or of later complication, without mention of misadventure at the time of the procedure; Z79.899 Other long term (current) drug therapy; Z86.711 Personal history of pulmonary embolism; Z86.718 Personal history of other venous thrombosis and embolism; Z88.1 Allergy status to other antibiotic agents; Z91.013 Allergy to seafood; Z88.8 Allergy status to other drugs, medicaments and biological substances; Z88.2 Allergy status to sulfonamides; Z79.02 Long term (current) use of antithrombotics/antiplatelets; Z79.52 Long term (current) use of systemic steroids
CPT/HCPCS: 36415; 71020; 74177; 80048; 80053; 80202; 81001; 83605; 83690; 84703; 85025; 87040; 87070; 87086; 87205; 96361; 96365; 96375; 96376; 99285; J0692; J1170; J1200; J1652; J1720; J1953; J1956; J2405; J3370; J3480; J3490; J7030; J7060; S0028

== ENCOUNTER 2016-11-29 09:08 | Emergency (ER) | payer MEDICARE, MEDICAID ==
[2016-11-29] MEDS ORDERED: NORMAL SALINE 1000 ML 1,000 ML IV ONE ×2 (10:15→11:24)
[2016-11-29] MEDS ORDERED: IPRATROPIUM/ALBUTEROL 0.5-2.5 MG/3 ML AMPUL NEB ONE (10:21)
--- NOTE | 2016-11-29 10:21 | ER Document Report ---
ED General - General Chief Complaint: General Weakness Stated Complaint: NAUSEA,VOMITING,CONGESTION Mode of Arrival: Ambulatory Information source: Patient Notes: 21-year-old female history of lupus presents with complaints of productive cough fever bodyaches. Patient notes that she's been nauseous and vomiting has not been holding her medications down, she states she had a seizure last night. Patient states max temp was a few days ago. Patient notes that she was recently admitted to the hospital for pneumonia was treated with antibiotics her sputum thinned out but has become productive thick again over the past few days. It is noted in the nursing note that patient can hardly speak but this is inaccurate as the patient is speaking with no difficulty in explaining her concerns. Patient states she receives Dilaudid for her pain TRAVEL OUTSIDE OF THE [place] IN LAST 30 DAYS: No - HPI Onset: Other Onset/Duration: Persistent Quality of pain: Achy Severity: Mild Pain Level: 1 Associated symptoms: Body/muscle aches, Productive cough, Fever, Shortness of breath Exacerbated by: Denies Relieved by: Denies Similar symptoms previously: Yes Recently seen / treated by doctor: Yes - Related Data Allergies/Adverse Reactions: shellfish derived Allergy (Severe, Verified 11/29/16 09:20) Anaphylaxis ketorolac tromethamine [From Toradol] Allergy (Intermediate, Verified 11/29/16 09:20) Hives morphine [Morphine] Allergy (Intermediate, Verified 11/29/16 09:20) Hives sulfamethoxazole [From Bactrim] Allergy (Unknown, Verified 11/29/16 09:20) Pruritis trimethoprim [From Bactrim] Allergy (Unknown, Verified 11/29/16 09:20) Pruritis belimumab [From Benlysta] Allergy (Verified 11/29/16 09:20) rash Past Medical History - Social History Smoking Status: Never Smoker Cigarette use (# per day): No Chew tobacco use (# tins/day): No Smoking Education Provided: No Frequency of alcohol use: None Drug Abuse: None Family History: Reviewed & Not Pertinent Patient has suicidal ideation: No Patient has homicidal ideation: No - Past Medical History Cardiac Medical History: Reports: Hx DVT - INF. VENA CAVA, Hx Hypertension - MEDS X 2 YRS /usually low, Hx Pulmonary Embolism Denies: Hx Coronary Artery Disease, Hx Heart Attack Pulmonary Medical History: Reports: Hx Asthma - Pediatric, Hx Pneumonia Denies: Hx Bronchitis, Hx COPD, Hx Tuberculosis Neurological Medical History: Reports: Hx Migraine, Hx Seizures - Last episode . 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 Denies: Hx Hysterectomy - Immunizations Immunizations up to date: Yes Hx Diphtheria, Pertussis, Tetanus Vaccination: Yes Hx Pneumococcal Vaccination: 10/04/14 Review of Systems - Review of Systems Notes: REVIEW OF SYSTEMS: CONSTITUTIONAL : Admits fever EENT: Denies eye, ear, throat, or mouth pain or symptoms. Denies nasal or sinus congestion or discharge. Denies throat, tongue, or mouth swelling or difficulty swallowing. CARDIOVASCULAR: Denies chest pain. Denies palpitations or racing or irregular heart beat. Denies ankle edema. RESPIRATORY: Admits to productive cough GASTROINTESTINAL: Denies abdominal pain or distention. Denies nausea, vomiting , or diarrhea. Denies blood in vomitus, stools, or per rectum. Denies black, tarry stools. Denies constipation. GENITOURINARY: Denies difficulty urinating, painful urination, burning, frequency, blood in urine, or discharge. FEMALE GENITOURINARY: Denies vaginal bleeding, heavy or abnormal periods, irregular periods. Denies vaginal discharge or odor. MUSCULOSKELETAL: Admits to body aches SKIN: Denies rash, lesions or sores. HEMATOLOGIC : Denies easy bruising or bleeding. LYMPHATIC: Denies swollen, enlarged glands. NEUROLOGICAL: Admits to seizure episode PSYCHIATRIC: Denies anxiety or stress. Denies depression, suicidal ideation, or homicidal ideation. ALL OTHER SYSTEMS REVIEWED AND NEGATIVE. Dictation was performed using [employer] voice recognition software PHYSICAL EXAMINATION: GENERAL: Chronically thin in no acute distress resting comfortably HEAD: Atraumatic, normocephalic. EYES: Pupils equal round and reactive to light, extraocular movements intact, conjunctiva are normal. ENT: Nares patent, oropharynx clear without exudates. Moist mucous membranes. NECK: Normal range of motion, supple without lymphadenopathy LUNGS: Crackles noted all throughout HEART: Regular rate and rhythm without murmurs intermittently will become tachycardic max 104 on my evaluation with monitor ABDOMEN: Soft, nontender, nondistended abdomen. No guarding, no rebound. No masses appreciated. Female : deferred Musculoskeletal: Normal range of motion, no pitting or edema. No cyanosis. NEUROLOGICAL: Cranial nerves grossly intact. Normal speech, normal gait. Normal sensory, motor exams PSYCH: Normal mood, normal affect. SKIN: Warm, Dry, normal turgor, no rashes or lesions noted. Physical Exam - Vital signs Vitals: Temp Pulse Resp BP Pulse Ox 98.9 F 111 H 20 92/60 L 96 11/29/16 09:13 11/29/16 09:13 11/29/16 09:13 11/29/16 09:13 11/29/16 09:13 Course - Re-evaluation Re-evalutation: 11/29/16 10:21 Lab work imaging is pending port was accessed 11/29/16 12:51 Lab work notes mild white count elevation, this would be consistent with the patient's presentation. She is otherwise in no distress. Resting comfortably. Was notified the patient didn't want narcotics, I ordered her home medication , also that the patient cannot look down because of her nausea therefore patient was given Haldol which appears to result her symptoms completely. Patient states that she feels great now. Mother is not in the room at this time however patient appears calm happy is very appreciative of her care. Patient will be discharged home with continued antibiotics given that there is improvement of her x-ray After performing a Medical Screening Examination, I estimate there is LOW risk for ACUTE CORONARY SYNDROME, RESPIRATORY FAILURE, SEPSIS OR MENINGITIS, thus I consider the discharge disposition reasonable. The patient and I have discussed the diagnosis and risks, and we agree with discharging home with close follow- up. We also discussed returning to the Emergency Department immediately if new or worsening symptoms occur. We have discussed the symptoms which are most concerning (e.g., changing or worsening pain, trouble swallowing or breathing, neck stiffness, fever) that necessitate immediate return. - Vital Signs Vital signs: Temp Pulse Resp BP Pulse Ox 98.9 F 111 H 19 101/65 97 11/29/16 09:13 11/29/16 09:13 11/29/16 12:01 11/29/16 12:01 11/29/16 12:01 - Laboratory Result Diagrams: 11/29/16 10:34 11/29/16 10:34 Laboratory results interpreted by me: 11/29/16 11/29/16 10:34 10:34 WBC 15.3 H RBC 3.44 L Hgb 10.3 L Hct 31.4 L RDW 14.8 H Plt Count 138 L Seg Neutrophils % 83.1 H Lymphocytes % 7.3 L Absolute Neutrophils 12.7 H Creatinine 0.49 L Alkaline Phosphatase 165 H Albumin 2.7 L - Diagnostic Test Radiology reviewed: Image reviewed, Reports reviewed Discharge - Discharge Clinical Impression: Systemic lupus erythematosus Qualifiers: Systemic lupus erythematosus type: unspecified Systemic lupus erythematosus organ involvement: unspecified Qualified Code(s): M32.9 - Systemic lupus erythematosus, unspecified Leukocytosis Qualifiers: Leukocytosis type: bandemia Qualified Code(s): D72.825 - Bandemia RLL pneumonia Qualifiers: Pneumonia type: due to unspecified organism Qualified Code(s): J18.1 - Lobar pneumonia, unspecified organism Vomiting Qualifiers: Vomiting type: unspecified Nausea presence: with nausea Qualified Code(s): R11.2 - Nausea with vomiting, unspecified Condition: Stable Disposition: HOME, SELF-CARE Instructions: Vomiting ([facility]) Prescriptions: Levofloxacin [Levaquin 750 mg Tablet] 750 mg PO DAILY #5 tablet Metoclopramide HCl [Reglan 10 mg Tablet] 1 - 2 tab PO ASDIR PRN #25 tablet PRN Reason: Prednisone 20 mg PO ASDIR PRN #30 tablet PRN Reason: Referrals: DEREK CHIU MD [Primary Care Provider] - Follow up in 3-5 days
[2016-11-29] MEDS ORDERED: ONDANSETRON HCL INJ/PF 4 MG/2 ML SDV IV ONE (10:40)
[2016-11-29] MEDS ORDERED: HYDROCODONE/ACETAMINOPHEN 7.5-325 MG TABLET PO ONE (10:41)
[2016-11-29 11:00] LABS: ABSOLUTE BASOPHILS # (AUTO) 0.1 10^3/uL (0.0-0.2); ABSOLUTE EOSINOPHILS # (AUTO) 0.3 10^3/uL (0.0-0.6); ABSOLUTE LYMPHOCYTES (AUTO) 1.1 10^3/uL (0.5-4.7); ABSOLUTE MONOCYTES (AUTO) 1.1 10^3/uL (0.1-1.4); ABSOLUTE NEUT (AUTO) 12.7 10^3/uL (1.7-8.2); BASOPHILS % (AUTO) 0.4 % (0-2); EOSINOPHILS % (AUTO) 1.8 % (0-6); HEMATOCRIT 31.4 % (36.0-47.0); HEMOGLOBIN 10.3 g/dL (12.0-15.5); HGB HCT DIFFERENCE -0.5; LYMPHOCYTES % (AUTO) 7.3 % (13-45); MEAN CORPUSCULAR HEMOGLOBIN 29.9 pg (27.0-33.4); MEAN CORPUSCULAR HGB CONC 32.8 g/dL (32.0-36.0); MEAN CORPUSCULAR VOLUME 91 fl (80-97); MONOCYTES % (AUTO) 7.4 % (3-13); RED BLOOD COUNT 3.44 10^6/uL (3.72-5.28); RED CELL DISTRIBUTION WIDTH 14.8 % (11.5-14.0); SEGMENTED NEUTROPHILS % (AUTO) 83.1 % (42-78); WHITE BLOOD COUNT 15.3 10^3/uL (4.0-10.5)
[2016-11-29] MEDS ORDERED: HALOPERIDOL LACTATE INJ 5 MG/1 ML VIAL IV ONE (11:20)
[2016-11-29 11:29] LABS: ALANINE AMINOTRANSFERASE 20 U/L (9-52); ALBUMIN 2.7 g/dL (3.5-5.0); ALKALINE PHOSPHATASE 165 U/L (38-126); ANION GAP 10 (5-19); ASPARTATE AMINO TRANSFERASE 16 U/L (14-36); BILIRUBIN,TOTAL 0.5 mg/dL (0.2-1.3); BLOOD UREA NITROGEN 9 mg/dL (7-20); CALCIUM 8.4 mg/dL (8.4-10.2); CARBON DIOXIDE 25 mmol/L (22-30); CHLORIDE 103 mmol/L (98-107); CREATININE RESULT 0.49 mg/dL (0.52-1.25); GLUCOSE 95 mg/dL (75-110); POTASSIUM 3.9 mmol/L (3.6-5.0); SODIUM 137.8 mmol/L (137-145); TOTAL PROTEIN 8.1 g/dL (6.3-8.2)
[2016-11-29 14:27] VITALS: BP 112/73
== END 2016-11-29 14:38 | disposition home or self-care (01) ==
LOC: ER 09:08
DX: J18.1 Lobar pneumonia, unspecified organism (principal); M32.9 Systemic lupus erythematosus, unspecified; R11.2 Nausea with vomiting, unspecified; D72.825 Bandemia; R05 Cough; R50.9 Fever, unspecified; R56.9 Unspecified convulsions; I10 Essential (primary) hypertension; M79.1 Myalgia; R00.0 Tachycardia, unspecified; R06.02 Shortness of breath; Z88.8 Allergy status to other drugs, medicaments and biological substances; Z88.5 Allergy status to narcotic agent; Z88.1 Allergy status to other antibiotic agents; Z87.892 Personal history of anaphylaxis; Z91.013 Allergy to seafood; Z86.718 Personal history of other venous thrombosis and embolism; Z86.711 Personal history of pulmonary embolism; Z79.891 Long term (current) use of opiate analgesic
CPT/HCPCS: 36591; 94640; 99285; 96374; 96375; 36415; 85025; 80053; 87804; 71020; 71010; J1630; J2405; J7030; A9270 ×2; J7620

== ENCOUNTER 2016-12-22 10:48 | Inpatient (IN) | payer MEDICARE, MEDICAID ==
[2016-12-22] MEDS ORDERED: NORMAL SALINE 1000 ML 1,000 ML IV ONE ×2 (11:01→13:19)
[2016-12-22] MEDS ORDERED: ONDANSETRON HCL INJ/PF 4 MG/2 ML SDV IV ONE (11:02)
--- NOTE | 2016-12-22 11:03 | ER Document Report ---
ED Medical Screen (RME) - General Stated Complaint: VOMITING,NAUSEA Notes: Patient reports vomiting for 2-3 days. Denies diarrhea. No known fever. Patient states she has been having difficulty breathing on and off since August. States she has a history of pneumonia. Denies asthma. States she is having upper abdominal pain from vomiting. I have greeted and performed a rapid initial assessment of this patient. A comprehensive ED assessment and evaluation of the patient, analysis of test results and completion of the medical decision making process will be conducted by additional ED providers. TRAVEL OUTSIDE OF THE [place] IN LAST 30 DAYS: No - Related Data Allergies/Adverse Reactions: shellfish derived Allergy (Severe, Verified 12/22/16 11:01) Anaphylaxis ketorolac tromethamine [From Toradol] Allergy (Intermediate, Verified 12/22/16 11:01) Hives morphine [Morphine] Allergy (Intermediate, Verified 12/22/16 11:01) Hives sulfamethoxazole [From Bactrim] Allergy (Unknown, Verified 12/22/16 11:01) Pruritis trimethoprim [From Bactrim] Allergy (Unknown, Verified 12/22/16 11:01) Pruritis belimumab [From Benlysta] Allergy (Verified 12/22/16 11:01) rash Past Medical History - Past Medical History Cardiac Medical History: Reports: Hx DVT - INF. VENA CAVA, Hx Hypertension - MEDS X 2 YRS /usually low, Hx Pulmonary Embolism Denies: Hx Coronary Artery Disease, Hx Heart Attack Pulmonary Medical History: Reports: Hx Asthma - Pediatric, Hx Pneumonia Denies: Hx Bronchitis, Hx COPD, Hx Tuberculosis Neurological Medical History: Reports: Hx Migraine, Hx Seizures - Last episode . 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 Denies: Hx Hysterectomy - Immunizations Immunizations up to date: Yes Hx Diphtheria, Pertussis, Tetanus Vaccination: Yes Physical Exam - Vital signs Vitals: Temp Pulse Resp BP Pulse Ox 98.5 F 99 14 69/44 L 96 12/22/16 10:56 12/22/16 10:56 12/22/16 10:56 12/22/16 10:56 12/22/16 10:56 - Notes Notes: Patient has low blood pressure in triage today. 73/40. - Respiratory Notes: Lungs clear to auscultation, patient no respiratory distress. Course - Vital Signs Vital signs: Temp Pulse Resp BP Pulse Ox 98.5 F 99 14 69/44 L 96 12/22/16 10:56 12/22/16 10:56 12/22/16 10:56 12/22/16 10:56 12/22/16 10:56
[2016-12-22] MEDS ORDERED: FENTANYL CITRATE INJ/PF 100 MCG/2 ML AMPUL IV ONE (11:46)
--- NOTE | 2016-12-22 11:53 | ER Document Report ---
ED GI/ - General Chief Complaint: Nausea/Vomiting Stated Complaint: VOMITING,NAUSEA Information source: Patient Notes: 21-year-old female with past medical history including lupus who presents today for 3 days of nausea, vomiting, and epigastric intermittent nonradiating abdominal "cramping". She also states around 4 days of an afebrile productive cough. Patient has a very complicated history of lupus requiring a feeding tube in 2015 secondary to dehydration. Patient is also had DVTs/PEs. Patient is on injectable blood thinners daily. The patient also has a left chest port. Patient states she has not been able to eat or drink for 3 days secondary to the nausea and vomiting. She denies any diarrhea. She denies any fevers. She denies any chest pain or shortness of breath. Patient has a criminal investigative agent , a scheduling manager Dr. Littlejohn in [facility], and a local primary care physician. Patient had her feeding tube removed and has normal bowel movements but secondary to the slow closure of the gastric tube site she still wears a pouch covering the whole. Patient denies any aggravating relieving factors to the vomiting and abdominal pain. Patient review of systems also states a rash to her vaginal region. She denies any dysuria. She denies any sexual activity for the last 2 years. Patient states she has had these lesions previously with culture and biopsy by [employer]. She states that she was told it was secondary to her lupus flare with no infectious organisms found, specifically negative for herpes. TRAVEL OUTSIDE OF THE [place] IN LAST 30 DAYS: No - HPI Patient complains to provider of: Other - See above Onset: Other - See above Timing/Duration: Gradual Quality of pain: Achy Severity at maximum: Moderate Severity in ED: Moderate Pain Level: 2 Location: Other - See above Sexual history: Inactive Associated symptoms: Other - See above Exacerbated by: Denies Relieved by: Denies Similar symptoms previously: Yes Recently seen / treated by doctor: Yes - Related Data Allergies/Adverse Reactions: shellfish derived Allergy (Severe, Verified 12/22/16 11:01) Anaphylaxis ketorolac tromethamine [From Toradol] Allergy (Intermediate, Verified 12/22/16 11:01) Hives morphine [Morphine] Allergy (Intermediate, Verified 12/22/16 11:01) Hives sulfamethoxazole [From Bactrim] Allergy (Unknown, Verified 12/22/16 11:01) Pruritis trimethoprim [From Bactrim] Allergy (Unknown, Verified 12/22/16 11:01) Pruritis belimumab [From Benlysta] Allergy (Verified 12/22/16 11:01) rash Past Medical History - General Information source: Patient - Social History Smoking Status: Never Smoker Chew tobacco use (# tins/day): No Frequency of alcohol use: None Drug Abuse: None Family History: Reviewed & Not Pertinent Patient has suicidal ideation: No Patient has homicidal ideation: No - Past Medical History Cardiac Medical History: Reports: Hx DVT - INF. VENA CAVA, Hx Hypertension - MEDS X 2 YRS /usually low, Hx Pulmonary Embolism Denies: Hx Coronary Artery Disease, Hx Heart Attack Pulmonary Medical History: Reports: Hx Asthma - Pediatric, Hx Pneumonia Denies: Hx Bronchitis, Hx COPD, Hx Tuberculosis Neurological Medical History: Reports: Hx Migraine, Hx Seizures - Last episode . 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 Denies: Hx Hysterectomy - Immunizations Immunizations up to date: Yes Hx Diphtheria, Pertussis, Tetanus Vaccination: Yes Hx Pneumococcal Vaccination: 10/04/14 Review of Systems - Review of Systems Constitutional: denies: Fever EENT: denies: Eye discharge, Nose discharge Cardiovascular: denies: Chest pain, Palpitations Respiratory: Cough, Short of breath Gastrointestinal: Nausea, Vomiting. denies: Diarrhea Genitourinary: denies: Dysuria Musculoskeletal: denies: Leg swelling Skin: Rash Neurological/Psychological: Other - no slurred speech -: Yes All other systems reviewed and negative Physical Exam - Vital signs Vitals: Temp Pulse Resp BP Pulse Ox 98.5 F 99 14 69/44 L 96 12/22/16 10:56 12/22/16 10:56 12/22/16 10:56 12/22/16 10:56 12/22/16 10:56 Interpretation: Hypotensive Notes: Reviewed vital signs and nursing note as charted by RN. CONSTITUTIONAL: Alert and oriented and responds appropriately to questions. Patient appears frail and cachectic HEAD: Normocephalic; atraumatic EYES: PERRL; Sclerae non-icteric ENT: Normal nose; no rhinorrhea; dry mucous membranes NECK: Supple without meningismus; non-tender; no cervical lymphadenopathy, no masses CARD: Regular rate and rhythm; no murmurs, no clicks, no rubs, no gallops; symmetric distal pulses RESP: Normal chest excursion without splinting or tachypnea; breath sounds clear and equal bilaterally; no wheezes, no rhonchi, no rales ABD/GI: Normal bowel sounds; non-distended; soft, very minimally tender to the epigastric region. No rebound or guarding. Old feeding tube pouch in place with no fluid in the bag. No lower abdominal tenderness. GI/: With bathhouse attendant present reexamined the vaginal region. Patient has a nontender nonfluctuant rash to the labia and perivaginal region with small circular satellite lesions, consistent with possible yeast infection. BACK: The back appears normal and is non-tender to palpation, there is no CVA tenderness EXT: Normal ROM in all joints; non-tender to palpation; no cyanosis, no effusions, no edema SKIN: See above on GI/ exam NEURO: Moves all extremities equally; Motor and sensory function intact PSYCH: The patient's mood and manner are appropriate. Grooming and personal hygiene are appropriate. Course - Re-evaluation Re-evalutation: 12/22/16 11:53 Given the history and physical examination we will provide fluids, nausea medications, place the patient on the monitor, obtain basic labs, as well as a three-way x-ray of the abdomen. I would like to initially assess for possible bowel obstruction, pancreatitis, or hepatitis. Given oxygen saturation of 97% on room male with no chest pain, I believe pulmonary embolism to be unlikely. 12/22/16 12:33 Patient's pain is improved. Second liter of intravenous fluid will be provided. Three-way x-ray of the abdomen is pending. 12/22/16 13:34 Labs as recorded. Fluid infusing. 12/22/16 14:51 Labs as recorded. Urine showing probable infection. Urine culture has been sent. No vomiting here at this facility. 2 L of fluid have been provided. Patient will be admitted for further evaluation by the hospitalist service with continued fluid rehydration pending urine culture results. - Vital Signs Vital signs: Temp Pulse Resp BP Pulse Ox 98.5 F 99 18 101/61 99 12/22/16 10:56 12/22/16 10:56 12/22/16 14:01 12/22/16 14:00 12/22/16 11:26 - Laboratory Result Diagrams: 12/22/16 11:30 12/22/16 11:30 Laboratory results interpreted by me: 12/22/16 12/22/16 12/22/16 11:30 11:30 13:26 WBC 13.9 H RBC 3.51 L Hgb 10.6 L Hct 32.9 L RDW 14.5 H Seg Neuts % (Manual) 82 H Lymphocytes % (Manual) 11 L Monocytes % (Manual) 2 L Abs Neuts (Manual) 12.1 H Potassium 3.3 L Carbon Dioxide 15 L Glucose 56 L Calcium 7.7 L Alkaline Phosphatase 172 H Albumin 2.2 L Lipase 16.1 L Urine Protein 100 H Urine Ketones 20 H Urine Blood SMALL H Ur Leukocyte Esterase LARGE H Critical Care Note - Critical Care Note Total time excluding time spent on procedures (mins): 35 Discharge - Discharge Clinical Impression: Severe dehydration Vomiting Qualifiers: Vomiting type: unspecified Nausea presence: with nausea Qualified Code(s): R11.2 - Nausea with vomiting, unspecified UTI (urinary tract infection) Qualifiers: Urinary tract infection type: acute cystitis Hematuria presence: without hematuria Qualified Code(s): N30.00 - Acute cystitis without hematuria Condition: Serious Disposition: ADMITTED INPATIENT Admitting Provider: Hospitalist
[2016-12-22] MEDS ORDERED: FLUCONAZOLE 100 MG TABLET PO ONE (11:54)
[2016-12-22] MEDS ORDERED: NYSTATIN/TRIAMCIN CREAM 15 GM TP ONE (11:54)
[2016-12-22 12:22] LABS: HEMATOCRIT 32.9 % (36.0-47.0); HEMOGLOBIN 10.6 g/dL (12.0-15.5); HGB HCT DIFFERENCE -1.1; MEAN CORPUSCULAR HEMOGLOBIN 30.2 pg (27.0-33.4); MEAN CORPUSCULAR HGB CONC 32.2 g/dL (32.0-36.0); MEAN CORPUSCULAR VOLUME 94 fl (80-97); RED BLOOD COUNT 3.51 10^6/uL (3.72-5.28); RED CELL DISTRIBUTION WIDTH 14.5 % (11.5-14.0); WHITE BLOOD COUNT 13.9 10^3/uL (4.0-10.5)
[2016-12-22 12:41] LABS: ALANINE AMINOTRANSFERASE 31 U/L (9-52); ALBUMIN 2.2 g/dL (3.5-5.0); ALKALINE PHOSPHATASE 172 U/L (38-126); ANION GAP 19 (5-19); ASPARTATE AMINO TRANSFERASE 31 U/L (14-36); BILIRUBIN,DIRECT 0.3 mg/dL (0.0-0.4); BILIRUBIN,TOTAL 0.3 mg/dL (0.2-1.3); BLOOD UREA NITROGEN 19 mg/dL (7-20); CALCIUM 7.7 mg/dL (8.4-10.2); CARBON DIOXIDE 15 mmol/L (22-30); CHLORIDE 105 mmol/L (98-107); CREATININE RESULT 0.74 mg/dL (0.52-1.25); GLUCOSE 56 mg/dL (75-110); LIPASE 16.1 U/L (23-300); POTASSIUM 3.3 mmol/L (3.6-5.0); SODIUM 138.5 mmol/L (137-145); TOTAL PROTEIN 7.1 g/dL (6.3-8.2)
[2016-12-22 13:06] LABS: BAND NEUTROPHILS % (MANUAL) 5 % (3-5); BASOPHILS % (MANUAL) 0 % (0-2); EOSINOPHILS % (MANUAL) 0 % (0-6); HYPOCHROMASIA SLIGHT; LYMPHOCYTES % (MANUAL) 11 % (13-45); PLATELET CLUMPS PRESENT; POLYCHROMASIA SLIGHT; ROULEAUX 1+; TOTAL CELLS COUNTED 100; TOXIC GRANULATION SLIGHT; TOXIC VACUOLATION PRESENT
[2016-12-22 13:56] LABS: APPEARANCE,URINE CLOUDY; BILIRUBIN,URINE NEGATIVE (NEGATIVE); GLUCOSE, URINE NEGATIVE (NEGATIVE); KETONES,URINE 20 mg/dL (NEGATIVE); LEUKOCYTE ESTERASE,URINE LARGE (NEGATIVE); NITRITE,URINE NEGATIVE (NEGATIVE); PROTEIN,URINE 100 mg/dL (NEGATIVE); URINE SPECIFIC GRAVITY 1.019; UROBILINOGEN,URINE NEGATIVE mg/dL (<2.0)
[2016-12-22] MEDS ORDERED: HYDROMORPHONE HCL INJ/PF 2 MG/ML AMPULE IV ONE (14:00)
[2016-12-22] MEDS ORDERED: CEFTRIAXONE RTU 1 GM/D5W 50 ML IV ONE (14:50)
[2016-12-22] MEDS ORDERED: POTASSI CL 20 MEQ/D5-1/2NS 1L 1,000 ML IV PRN (15:57)
--- NOTE | 2016-12-22 16:21 | PDOC H&P ---
History of Present Illness Admission Date/PCP: 12/22/16 15:06 Dr. Joseph Patient complains of: Nausea and vomiting History of Present Illness: JOSE DUMONT is a 21 year old female with past medical history of lupus , DVT, anemia of chronic disease, malnutrition presents to the emergency department with one week cough, chest congestion, nausea, vomiting, upper abdominal discomfort. Patient is followed by hospitality recruiter Dr. Littlejohn in [facility]. She is also followed by Dr. Kelli Hein of GI in [facility]. It's noteworthy the patient had prior gastrostomy tube for supplemental tube feeding secondary to severe malnutrition. Gastrostomy tube was removed at [facility]. Past Medical History Cardiac Medical History: Reports: DVT - INF. VENA CAVA, Hypertension - MEDS X 2 YRS /usually low, Pulmonary Embolism Denies: Coronary Artery Disease, Myocardial Infarction Pulmonary Medical History: Reports: Asthma - Pediatric, Pneumonia Denies: Bronchitis, Chronic Obstructive Pulmonary Disease (COPD), Tuberculosis Neurological Medical History: Reports: Migraine, Seizures - Last episode 06/25/16 GI Medical History: Reports: Gastroesophageal Reflux Disease Musculoskeltal Medical History: Reports: Arthritis - Lupus Psychiatric Medical History: Reports: Depression Hematology: Reports: Anemia Past Surgical History Past Surgical History: Reports: Other - PEG placement, Port-A-Cath Denies: Hysterectomy Social History Smoking Status: Never Smoker Frequency of Alcohol Use: Rare Hx Recreational Drug Use: No Drugs: None Hx Prescription Drug Abuse: No - Advance Directive Resuscitation Status: Full Code Family History Family History: Other - Lupus-mother Parental Family History Reviewed: Yes Children Family History Reviewed: Yes Sibling(s) Family History Reviewed.: Yes Medication/Allergy Home Medications: Albuterol Sulfate [Ventolin Hfa] 1 puff IH TID 12/22/16 Apixaban [Eliquis 5 mg Tablet] 5 mg PO BID 12/22/16 Atenolol [Tenormin] 25 mg PO QAM 12/22/16 Butalb/Acetaminophen/Caffeine [Fioricet (50-325-40 mg) Tablet] 1 tab PO TIDP PRN 12/22/16 Cetirizine HCl [Zyrtec 10 mg Tablet] 10 mg PO DAILY 12/22/16 Clonidine HCl [Catapres 0.3 mg Tablet] 0.3 mg PO BID 12/22/16 Cyclosporine 0.05% Oph Emulsio [Restasis 0.05% Oph Emulsion Pf 0.4 ml] 1 drop OU BID 12/22/16 Fluticasone/Salmeterol [Advair 250-50 Diskus 28 dose] 1 puff IN Q12 12/22/16 Fondaparinux Sodium [Arixtra Inj 2.5 mg/0.5 ml Disp.syrin] 2.5 mg SQ BID Gabapentin [Neurontin 300 mg Capsule] 900 mg PO TID 12/22/16 Hydroxychloroquine Sulfate [Plaquenil 200 mg Tablet] 200 mg PO BID 12/22/16 Hydroxyzine HCl [Atarax 50 mg Tablet] 50 mg PO TIDP PRN 12/22/16 Ibuprofen [Motrin 800 mg Tablet] 800 mg PO QID 12/22/16 Levetiracetam 7.5 ml PO BID 12/22/16 Mycophenolate Mofetil 500 mg PO DAILY 12/22/16 Nystatin/Dexameth/Diphen [Magic Mouthwash] 5 ml PO ACHS 12/22/16 Ondansetron [Zofran Odt] 8 mg SL Q4HP PRN 12/22/16 Oxycodone HCl/Acetaminophen [Percocet 10-325 mg Tablet] 1 tab PO QIDP PRN Pantoprazole Sodium [Protonix] 40 mg PO DAILY 12/22/16 Prednisone [Deltasone 10 mg Tablet] 10 mg PO DAILY 12/22/16 Promethazine HCl [Phenergan 25 mg Tablet] 25 mg PO Q4HP PRN 12/22/16 Tizanidine HCl [Zanaflex 4 mg Tablet] 8 mg PO TIDP PRN 12/22/16 Zolpidem Tartrate [Ambien] 10 mg PO QHS 12/22/16 Allergies/Adverse Reactions: shellfish derived Allergy (Severe, Verified 12/22/16 11:01) Anaphylaxis ketorolac tromethamine [From Toradol] Allergy (Intermediate, Verified 12/22/16 11:01) Hives morphine [Morphine] Allergy (Intermediate, Verified 12/22/16 11:01) Hives sulfamethoxazole [From Bactrim] Allergy (Unknown, Verified 12/22/16 11:01) Pruritis trimethoprim [From Bactrim] Allergy (Unknown, Verified 12/22/16 11:01) Pruritis belimumab [From Benlysta] Allergy (Verified 12/22/16 11:01) rash Review of Systems Constitutional: ABSENT: chills, fever(s), headache(s), weight gain, weight loss Eyes: ABSENT: visual disturbances Ears: ABSENT: hearing changes Cardiovascular: ABSENT: chest pain, dyspnea on exertion, edema, orthropnea, palpitations Respiratory: PRESENT: cough. ABSENT: hemoptysis Gastrointestinal: PRESENT: abdominal pain - Epigastric, nausea, vomiting. ABSENT: constipation, diarrhea, hematemesis, hematochezia Genitourinary: ABSENT: dysuria, hematuria Musculoskeletal: ABSENT: joint swelling Integumentary: ABSENT: rash, wounds Neurological: ABSENT: abnormal gait, abnormal speech, confusion, dizziness, focal weakness, syncope Psychiatric: ABSENT: anxiety, depression, homidical ideation, suicidal ideation Endocrine: ABSENT: cold intolerance, heat intolerance, polydipsia, polyuria Hematologic/Lymphatic: ABSENT: easy bleeding, easy bruising Physical Exam Vital Signs: Temp Pulse Resp BP Pulse Ox 98.5 F 99 18 101/61 99 12/22/16 10:56 12/22/16 10:56 12/22/16 14:01 12/22/16 14:00 12/22/16 11:26 GENERAL: No acute distress HEENT: Conjunctiva clear, nonicteric, moist mucous membranes, no JVD, midline trachea RESPIRATORY: Clear to auscultation bilaterally, no wheezes, no rhonchi CARDIAC: Regular rate and rhythm, no murmurs/gallops/rubs ABDOMEN: Soft, nondistended, mild epigastric tenderness, positive bowel sounds, no rebound, no guarding. Ostomy bag covering stoma from prior gastrostomy tube EXTREMETIES: No edema, cyanosis, clubbing NEUROLOGIC: Alert, oriented to person/place/time, CN's grossly intact, no focal deficits SKIN: No rash, wounds PSYCH: Normal mood, normal affect Results Laboratory Results: Labs- All tests 24 hr 12/22/16 12/22/16 12/22/16 11:30 11:30 13:26 WBC 13.9 H RBC 3.51 L Hgb 10.6 L Hct 32.9 L MCV 94 MCH 30.2 MCHC 32.2 RDW 14.5 H Plt Count 182 Total Counted 100 Seg Neutrophils % Not Reportable Seg Neuts % (Manual) 82 H Band Neutrophils % 5 Lymphocytes % Not Reportable Lymphocytes % (Manual) 11 L Monocytes % Not Reportable Monocytes % (Manual) 2 L Eosinophils % Not Reportable Eosinophils % (Manual) 0 Basophils % Not Reportable Basophils % (Manual) 0 Absolute Neutrophils Not Reportable Abs Neuts (Manual) 12.1 H Absolute Lymphocytes Not Reportable Abs Lymphs (Manual) 1.5 Absolute Monocytes Not Reportable Abs Monocytes (Manual) 0.3 Absolute Eosinophils Not Reportable Absolute Eos (Manual) 0.0 Absolute Basophils Not Reportable Abs Basophils (Manual) 0.0 Toxic Granulation SLIGHT Toxic Vacuolation PRESENT Clumped Platelets PRESENT Large Platelets PRESENT Platelet Comment Not Reportable Polychromasia SLIGHT Hypochromasia SLIGHT Rouleaux 1+ Sodium 138.5 Potassium 3.3 L Chloride 105 Carbon Dioxide 15 L Anion Gap 19 BUN 19 Creatinine 0.74 Est GFR ( Amer) > 60 Est GFR (Non-Af Amer) > 60 Glucose 56 L Calcium 7.7 L Total Bilirubin 0.3 Direct Bilirubin 0.3 Indirect Bilirubin Not Reportable Neonat Total Bilirubin Not Reportable AST 31 ALT 31 Alkaline Phosphatase 172 H Total Protein 7.1 Albumin 2.2 L Lipase 16.1 L Beta HCG, Quant < 2.39 Total Beta HCG NEGATIVE Urine Color YELLOW Urine Appearance CLOUDY Urine pH 5.0 Ur Specific [place] 1.019 Urine Protein 100 H Urine Glucose (UA) NEGATIVE Urine Ketones 20 H Urine Blood SMALL H Urine Nitrite NEGATIVE Urine Bilirubin NEGATIVE Urine Urobilinogen NEGATIVE Ur Leukocyte Esterase LARGE H Urine WBC (Auto) 116 Urine RBC (Auto) 10 Urine Bacteria (Auto) 2+ Squamous Epi Cells Auto 4 Urine Mucus (Auto) RARE Urine Ascorbic Acid NEGATIVE Impressions: Acute Abdomen Series 12/22/16 11:46 IMPRESSION: Minimal airspace disease in the right upper lobe probably atelectasis. There is bibasilar atelectasis as well. Assessment & Plan - Diagnosis (1) Vomiting Qualifiers: Vomiting type: unspecified Vomiting Intractability: unspecified Nausea presence: with nausea Qualified Code(s): R11.2 - Nausea with vomiting , unspecified Is this a current diagnosis for this admission?: YesPlan: Place on clear liquid diet, IV fluids, antiemetics. Acute abdominal series shows no obstructive process. Patient has had relatively recent right upper quadrant ultrasound that showed no stones. (2) Abdominal pain Qualifiers: Abdominal location: unspecified location Qualified Code(s): R10.9 - Unspecified abdominal pain Is this a current diagnosis for this admission?: YesPlan: Patient will need to follow-up with her GI doctor (Dr. Kelli Kramer) after discharge. (3) Dehydration, severe Is this a current diagnosis for this admission?: YesPlan: IV fluids. (4) Chronic pain Is this a current diagnosis for this admission?: YesPlan: Patient is chronic opiate dependent followed by pain management Dr. Anila Gonzales. According to database she has had Percocet 7.5/325 120 tablets filled on 12/19/2016. (5) Abnormal urinalysis Is this a current diagnosis for this admission?: YesPlan: Continue Rocephin initiated in the emergency department pending further urine culture. (6) SIRS (systemic inflammatory response syndrome) Is this a current diagnosis for this admission?: YesPlan: Likely secondary to urinary tract infection. (9) History of pulmonary embolism Is this a current diagnosis for this admission?: YesPlan: Verify home medications and resume. I believe patient is supposed to be on Eliquis, however I don't see an pharmacy records that this has been filled. (10) Lupus (systemic lupus erythematosus) Is this a current diagnosis for this admission?: YesPlan: verify home meds. - Time Time Spent: Greater than 70 Minutes
[2016-12-22] MEDS: HYDROMORPHONE HCL INJ/PF 2 MG/ML AMPULE IV PRN ×2 (16:37→21:17)
[2016-12-22] MEDS ORDERED: POTASSI CL 20 MEQ/50 ML RIDER 50 ML IV ONE (16:45)
[2016-12-22] MEDS: ONDANSETRON HCL INJ/PF 4 MG/2 ML SDV IV PRN (17:33)
[2016-12-22] MEDS: NYSTATIN/TRIAMCIN CREAM 15 GM TP SCH (18:05)
[2016-12-22] MEDS: PANTOPRAZOLE SODIUM 40 MG VIAL IV SCH (21:19)
[2016-12-23] MEDS: ONDANSETRON HCL INJ/PF 4 MG/2 ML SDV IV PRN ×2 (01:31→16:02)
[2016-12-23] MEDS ORDERED: NORMAL SALINE 1000 ML 500 ML IV ONE ×2 (01:34→23:12)
[2016-12-23] MEDS: HYDROMORPHONE HCL INJ/PF 2 MG/ML AMPULE IV PRN ×5 (02:19→23:23)
[2016-12-23] MEDS: PANTOPRAZOLE SODIUM 40 MG VIAL IV SCH (09:18)
[2016-12-23] MEDS: NYSTATIN/TRIAMCIN CREAM 15 GM TP SCH ×2 (09:19→19:27)
[2016-12-23 09:56] LABS: ABSOLUTE EOSINOPHILS # (AUTO) 0.3 10^3/uL (0.0-0.6); ABSOLUTE LYMPHOCYTES (AUTO) 1.4 10^3/uL (0.5-4.7); ABSOLUTE MONOCYTES (AUTO) 0.7 10^3/uL (0.1-1.4); ABSOLUTE NEUT (AUTO) 5.9 10^3/uL (1.7-8.2); BASOPHILS % (AUTO) 0.3 % (0-2); EOSINOPHILS % (AUTO) 3.8 % (0-6); HEMATOCRIT 31.6 % (36.0-47.0); HEMOGLOBIN 10.2 g/dL (12.0-15.5); LYMPHOCYTES % (AUTO) 16.6 % (13-45); MEAN CORPUSCULAR HEMOGLOBIN 30.3 pg (27.0-33.4); MEAN CORPUSCULAR HGB CONC 32.3 g/dL (32.0-36.0); MEAN CORPUSCULAR VOLUME 94 fl (80-97); MONOCYTES % (AUTO) 8.8 % (3-13); RED BLOOD COUNT 3.37 10^6/uL (3.72-5.28); SEGMENTED NEUTROPHILS % (AUTO) 70.5 % (42-78); WHITE BLOOD COUNT 8.3 10^3/uL (4.0-10.5)
[2016-12-23] MEDS ORDERED: CEFTRIAXONE 1 GM/D5W RTU 50 ML IV SCH (10:00)
[2016-12-23 10:14] LABS: ANION GAP 11 (5-19); BLOOD UREA NITROGEN 6 mg/dL (7-20); CALCIUM 8.2 mg/dL (8.4-10.2); CARBON DIOXIDE 19 mmol/L (22-30); CHLORIDE 109 mmol/L (98-107); CREATININE RESULT 0.43 mg/dL (0.52-1.25); GLUCOSE 106 mg/dL (75-110); SODIUM 138.6 mmol/L (137-145)
[2016-12-23 10:18] LABS: POTASSIUM 4.3 mmol/L (3.6-5.0)
--- NOTE | 2016-12-23 13:30 | PDOC PROGRESS REPORT ---
Subjective Progress Note for:: 12/23/16 Subjective:: Patient states her nausea and vomiting have improved. She would like to advance her diet. Pain is controlled. Patient denies fever, chills, headache, new focal weakness, chest pain, shortness of breath, abdominal pain, diarrhea, constipation. Physical Exam Vital Signs: Temp Pulse Resp BP Pulse Ox 97.8 F 84 18 106/69 99 12/23/16 11:02 12/23/16 11:02 12/23/16 11:02 12/23/16 11:02 12/23/16 11:02 Intake & Output 12/22/16 12/23/16 12/24/16 06:59 06:59 06:59 Intake Total 980 Output Total 300 Balance 680 Weight 47.5 kg GENERAL: No acute distress HEENT: Conjunctiva clear, nonicteric, moist mucous membranes, no JVD, midline trachea RESPIRATORY: Clear to auscultation bilaterally, no wheezes, no rhonchi CARDIAC: Regular rate and rhythm, no murmurs/gallops/rubs ABDOMEN: Soft, nondistended, mild epigastric tenderness, positive bowel sounds, no rebound, no guarding. Ostomy bag covering stoma from prior gastrostomy tube EXTREMETIES: No edema, cyanosis, clubbing NEUROLOGIC: Alert, oriented to person/place/time, CN's grossly intact, no focal deficits SKIN: No rash, wounds PSYCH: Normal mood, flat affect Results Laboratory Results: 12/23/16 09:30 12/23/16 09:30 12/23/16 12/23/16 09:30 09:30 WBC 8.3 RBC 3.37 L Hgb 10.2 L Hct 31.6 L MCV 94 MCH 30.3 MCHC 32.3 RDW 15.0 H Plt Count 158 Seg Neutrophils % 70.5 Lymphocytes % 16.6 Monocytes % 8.8 Eosinophils % 3.8 Basophils % 0.3 Absolute Neutrophils 5.9 Absolute Lymphocytes 1.4 Absolute Monocytes 0.7 Absolute Eosinophils 0.3 Absolute Basophils 0.0 Sodium 138.6 Potassium 4.3 D Chloride 109 H Carbon Dioxide 19 L Anion Gap 11 BUN 6 L Creatinine 0.43 L Est GFR ( Amer) > 60 Est GFR (Non-Af Amer) > 60 Glucose 106 Calcium 8.2 L Impressions: Acute Abdomen Series 03/21/17 11:46 IMPRESSION: Minimal airspace disease in the right upper lobe probably atelectasis. There is bibasilar atelectasis as well. Assessment & Plan - Diagnosis (1) Vomiting Qualifiers: Vomiting type: unspecified Vomiting Intractability: unspecified Nausea presence: with nausea Qualified Code(s): R11.2 - Nausea with vomiting , unspecified Is this a current diagnosis for this admission?: YesPlan: Resolved. Advance diet to bland diet. (2) Abdominal pain Qualifiers: Abdominal location: unspecified location Qualified Code(s): R10.9 - Unspecified abdominal pain Is this a current diagnosis for this admission?: YesPlan: Patient will need to follow-up with her GI doctor (Dr. Kelli Kramer) after discharge. (3) Dehydration, severe Is this a current diagnosis for this admission?: YesPlan: Resolved. Discontinue IV fluids. Encourage oral intake. (4) Chronic pain Is this a current diagnosis for this admission?: YesPlan: Patient is chronic opiate dependent followed by pain management Dr. Anila Gonzales. According to database she has had Percocet 7.5/325 120 tablets filled on 12/19/2016. (5) Abnormal urinalysis Is this a current diagnosis for this admission?: YesPlan: Continue Rocephin. (6) SIRS (systemic inflammatory response syndrome) Is this a current diagnosis for this admission?: Yes (7) Antiphospholipid syndrome Is this a current diagnosis for this admission?: Yes (8) HIT (heparin-induced thrombocytopenia) Is this a current diagnosis for this admission?: Yes (9) History of pulmonary embolism Is this a current diagnosis for this admission?: YesPlan: Resume Eliquis. (10) Lupus (systemic lupus erythematosus) Is this a current diagnosis for this admission?: YesPlan: verify home meds. Start prednisone 10 mg daily for now. - Time Time Spent with patient: 25-34 minutes Anticipated discharge: Home Within: within 24 hours
[2016-12-23] MEDS ORDERED: TIZANIDINE HCL 4 MG TABLET PO PRN (14:14)
[2016-12-23] MEDS ORDERED: ALBUTEROL SULFATE 0.083% NEB 2.5 MG/3 ML AMPUL NEB ONE (16:17)
[2016-12-23] MEDS: ALBUTEROL SULFATE 0.083% NEB 2.5 MG/3 ML AMPUL NEB PRN (16:20)
[2016-12-23] MEDS ORDERED: APIXABAN 5 MG TABLET PO SCH (18:00)
[2016-12-23] MEDS: CYCLOSPORINE 0.05% OPH EMULSIO 0.4 ML DROPERETTE OU SCH (19:27)
[2016-12-23] MEDS: PROMETHAZINE HCL INJ 25 MG/1 ML VIAL IV PRN (20:48)
[2016-12-23] MEDS ORDERED: (PENDING PHARMACY ID) (Zolpidem Tartrate [Ambien] 10 MG) PO SCH (22:00)
[2016-12-23] MEDS: ZOLPIDEM TARTRATE 5 MG TABLET PO SCH (23:21)
[2016-12-23] MEDS: HYDROXYCHLOROQUINE SULFATE 200 MG TABLET PO SCH (23:22)
[2016-12-23] MEDS: FONDAPARINUX SODIUM INJ 2.5 MG/0.5 ML DISP.SYRIN SUBCUT SCH (23:26)
[2016-12-24] MEDS: HYDROMORPHONE HCL INJ/PF 2 MG/ML AMPULE IV PRN ×5 (05:12→22:17)
[2016-12-24 05:31] LABS: ABSOLUTE BASOPHILS # (AUTO) 0.1 10^3/uL (0.0-0.2); ABSOLUTE EOSINOPHILS # (AUTO) 0.2 10^3/uL (0.0-0.6); ABSOLUTE MONOCYTES (AUTO) 0.9 10^3/uL (0.1-1.4); ABSOLUTE NEUT (AUTO) 7.1 10^3/uL (1.7-8.2); BASOPHILS % (AUTO) 0.8 % (0-2); HEMATOCRIT 28.8 % (36.0-47.0); HEMOGLOBIN 9.5 g/dL (12.0-15.5); HGB HCT DIFFERENCE -0.3; LYMPHOCYTES % (AUTO) 19.2 % (13-45); MEAN CORPUSCULAR HEMOGLOBIN 30.4 pg (27.0-33.4); MEAN CORPUSCULAR HGB CONC 32.9 g/dL (32.0-36.0); MEAN CORPUSCULAR VOLUME 92 fl (80-97); MONOCYTES % (AUTO) 9.1 % (3-13); RED BLOOD COUNT 3.12 10^6/uL (3.72-5.28); RED CELL DISTRIBUTION WIDTH 14.4 % (11.5-14.0); SEGMENTED NEUTROPHILS % (AUTO) 68.9 % (42-78); WHITE BLOOD COUNT 10.3 10^3/uL (4.0-10.5)
[2016-12-24 05:49] LABS: ANION GAP 8 (5-19); BLOOD UREA NITROGEN 4 mg/dL (7-20); CALCIUM 7.9 mg/dL (8.4-10.2); CARBON DIOXIDE 24 mmol/L (22-30); CHLORIDE 110 mmol/L (98-107); GLUCOSE 80 mg/dL (75-110); POTASSIUM 3.7 mmol/L (3.6-5.0); SODIUM 142.1 mmol/L (137-145)
[2016-12-24] MEDS ORDERED: ATENOLOL 50 MG TABLET PO SCH (08:00)
[2016-12-24] MEDS ORDERED: (PENDING PHARMACY ID) (Atenolol [Tenormin] 25 MG) PO SCH (08:00)
[2016-12-24] MEDS: ONDANSETRON HCL INJ/PF 4 MG/2 ML SDV IV PRN ×2 (09:21→18:05)
[2016-12-24] MEDS: CYCLOSPORINE 0.05% OPH EMULSIO 0.4 ML DROPERETTE OU SCH ×2 (09:22→18:05)
[2016-12-24] MEDS: LANSOPRAZOLE 30 MG TAB.RAP.DR PO SCH (09:23)
[2016-12-24] MEDS: HYDROXYCHLOROQUINE SULFATE 200 MG TABLET PO SCH (09:23)
[2016-12-24] MEDS: PREDNISONE 10 MG TABLET PO SCH (09:23)
[2016-12-24] MEDS: FONDAPARINUX SODIUM INJ 2.5 MG/0.5 ML DISP.SYRIN SUBCUT SCH ×2 (09:24→22:17)
[2016-12-24] MEDS: NYSTATIN/TRIAMCIN CREAM 15 GM TP SCH ×2 (09:24→18:05)
[2016-12-24] MEDS ORDERED: MYCOPHENOLATE MOFETIL 500 MG PO SCH (10:00)
[2016-12-24] MEDS ORDERED: MYCOPHENOLATE MOFETIL 250 MG CAPSULE PO SCH (10:00)
[2016-12-24] MEDS ORDERED: DOXYCYCLINE HYCLATE 100 MG TABLET PO ONE (11:00)
[2016-12-24] MEDS: GUAIFENESIN 600 MG TABLET.SA PO SCH ×2 (11:30→22:17)
[2016-12-24] MEDS: PROMETHAZINE HCL INJ 25 MG/1 ML VIAL IV PRN (11:36)
--- NOTE | 2016-12-24 13:34 | Physician Advisory Note ---
Physician Advisor ProgressNote .: Pursuant to the plan for [facility], I have reviewed the medical record for this patient. Physician Advisor Statement: Possible documentation opportunities if attending agrees: 1. "[acute/subacute] abd pain, suspect due to " [w/d from opioids due to N/V? UTI? ...] 2. "possible sepsis, present on admission, with tachycardia, leukocytosis, hypotension, likely due to UTI, ruled in/out" ? - if there is SIRS due to infxn, coders need to know whether or not attending thinks there was sepsis present. 3. "N/V, suspect due to " [UTI?, ...] 4. ? - "Acute metabolic acidosis, likely due to " [sepsis?, ...] 5. "acute hypoglycemia, due to " [inability to keep po's down? sepsis? , ...] 6. "underweight with protein-calorie malnutrition [state mild, mod, or severe] with BMI 19.9, cachexia, BUN 4, Cr 0.4, albumin when hemoconcentrated of 2.2, _ ___[?wt loss, ?appetite loss, ]" [if possible, give specifics on intake, wt loss, loss of SQ fat & muscle mass, diminished hand feeder catcher strength, & clinical importance such as (A) nutritional assessment ordered, (B) modified diet or supplements ordered, (C) additional labs ordered, (D) prolonged wound healing time, (E) delayed infxn clearance] Thanks! FLOYD
[2016-12-24] MEDS ORDERED: CEPHALEXIN 500 MG CAPSULE PO SCH (14:00)
[2016-12-24] MEDS: DEXTROSE 5%-1/2 NORMAL SALINE 1,000 ML IV PRN (14:09)
--- NOTE | 2016-12-24 15:57 | PDOC PROGRESS REPORT ---
Subjective Progress Note for:: 12/24/16 Subjective:: Patient states she is still having nausea, vomiting, diarrhea, and productive cough. Patient denies fever, chills, headache, new focal weakness, chest pain, shortness of breath, abdominal pain, diarrhea, constipation. Physical Exam Vital Signs: Temp Pulse Resp BP Pulse Ox 98.8 F 176 H 16 132/77 H 100 12/24/16 11:37 12/24/16 11:37 12/24/16 11:37 12/24/16 11:37 12/24/16 11:37 Intake & Output 12/23/16 12/24/16 12/25/16 06:59 06:59 06:59 Intake Total 980 1370 Output Total 300 Balance 680 1370 Weight 47.5 kg 47.8 kg GENERAL: No acute distress HEENT: Conjunctiva clear, nonicteric, moist mucous membranes, no JVD, midline trachea RESPIRATORY: Right posterior lung field rhonchi CARDIAC: Regular rate and rhythm, no murmurs/gallops/rubs ABDOMEN: Soft, nondistended, mild epigastric tenderness, positive bowel sounds, no rebound, no guarding. Ostomy bag covering stoma from prior gastrostomy tube EXTREMETIES: No edema, cyanosis, clubbing NEUROLOGIC: Alert, oriented to person/place/time, CN's grossly intact, no focal deficits SKIN: No rash, wounds PSYCH: Normal mood, flat affect Results Laboratory Results: 12/24/16 05:15 12/24/16 05:15 12/24/16 12/24/16 05:15 05:15 WBC 10.3 RBC 3.12 L Hgb 9.5 L Hct 28.8 L MCV 92 MCH 30.4 MCHC 32.9 RDW 14.4 H Plt Count 139 L Seg Neutrophils % 68.9 Lymphocytes % 19.2 Monocytes % 9.1 Eosinophils % 2.0 Basophils % 0.8 Absolute Neutrophils 7.1 Absolute Lymphocytes 2.0 Absolute Monocytes 0.9 Absolute Eosinophils 0.2 Absolute Basophils 0.1 Sodium 142.1 Potassium 3.7 Chloride 110 H Carbon Dioxide 24 Anion Gap 8 BUN 4 L Creatinine 0.40 L Est GFR ( Amer) > 60 Est GFR (Non-Af Amer) > 60 Glucose 80 Calcium 7.9 L Impressions: Acute Abdomen Series 12/22/16 11:46 IMPRESSION: Minimal airspace disease in the right upper lobe probably atelectasis. There is bibasilar atelectasis as well. Chest X-Ray 12/24/16 10:33 IMPRESSION: Mild residual or recurrent pneumonia on the right. Assessment & Plan - Diagnosis (1) Sepsis Qualifiers: Sepsis type: sepsis due to unspecified organism Qualified Code(s): A41.9 - Sepsis, unspecified organism Is this a current diagnosis for this admission?: YesPlan: Secondary to right lung pneumonia. White blood count now normal. Patient afebrile. (2) RLL pneumonia Qualifiers: Pneumonia type: due to unspecified organism Qualified Code(s): J18.1 - Lobar pneumonia, unspecified organism Is this a current diagnosis for this admission?: YesPlan: Start oral doxycycline until 12/31/2016. Sputum culture pending. (3) Vomiting Qualifiers: Vomiting type: unspecified Vomiting Intractability: unspecified Nausea presence: with nausea Qualified Code(s): R11.2 - Nausea with vomiting , unspecified Is this a current diagnosis for this admission?: YesPlan: Change diet to clear liquid. Resume IV fluids. (4) Abdominal pain Qualifiers: Abdominal location: unspecified location Qualified Code(s): R10.9 - Unspecified abdominal pain Is this a current diagnosis for this admission?: YesPlan: Patient will need to follow-up with her GI doctor (Dr. Kelli Kramer) after discharge. (5) Dehydration, severe Is this a current diagnosis for this admission?: YesPlan: Resume IV fluids until oral intake and vomiting improved. (6) Chronic pain Is this a current diagnosis for this admission?: YesPlan: Patient is chronic opiate dependent followed by pain management Dr. Anila Gonzales. According to database she has had Percocet 7.5/325 120 tablets filled on 12/19/2016. (7) Abnormal urinalysis Is this a current diagnosis for this admission?: YesPlan: Continue Rocephin. (8) Antiphospholipid syndrome Is this a current diagnosis for this admission?: Yes (9) HIT (heparin-induced thrombocytopenia) Is this a current diagnosis for this admission?: Yes (10) History of pulmonary embolism Is this a current diagnosis for this admission?: YesPlan: Continue Arixtra. (11) Lupus (systemic lupus erythematosus) Is this a current diagnosis for this admission?: YesPlan: Hold CellCept, Plaquenil until infectious disease issues improve. Continue prednisone 10 mg daily for now. (12) Diarrhea Is this a current diagnosis for this admission?: YesPlan: Likely secondary to antibiotic use. Check stool for C. difficile. - Time Time Spent with patient: 35 or more minutes Anticipated discharge: Home
[2016-12-24] MEDS: ZOLPIDEM TARTRATE 5 MG TABLET PO SCH (22:17)
[2016-12-24] MEDS: DOXYCYCLINE HYCLATE 100 MG TABLET PO SCH (22:17)
[2016-12-25] MEDS: ONDANSETRON HCL INJ/PF 4 MG/2 ML SDV IV PRN ×4 (00:21→22:37)
[2016-12-25] MEDS: DEXTROSE 5%-1/2 NORMAL SALINE 1,000 ML IV PRN ×2 (02:29→21:40)
[2016-12-25] MEDS: HYDROMORPHONE HCL INJ/PF 2 MG/ML AMPULE IV PRN ×6 (02:29→22:37)
[2016-12-25 05:17] LABS: ABSOLUTE EOSINOPHILS # (AUTO) 0.1 10^3/uL (0.0-0.6); ABSOLUTE LYMPHOCYTES (AUTO) 1.8 10^3/uL (0.5-4.7); ABSOLUTE NEUT (AUTO) 5.2 10^3/uL (1.7-8.2); BASOPHILS % (AUTO) 0.3 % (0-2); EOSINOPHILS % (AUTO) 1.2 % (0-6); HEMOGLOBIN 9.6 g/dL (12.0-15.5); HGB HCT DIFFERENCE -0.2; LYMPHOCYTES % (AUTO) 22.5 % (13-45); MEAN CORPUSCULAR HEMOGLOBIN 30.7 pg (27.0-33.4); MEAN CORPUSCULAR HGB CONC 33.2 g/dL (32.0-36.0); MEAN CORPUSCULAR VOLUME 93 fl (80-97); MONOCYTES % (AUTO) 12.3 % (3-13); RED BLOOD COUNT 3.14 10^6/uL (3.72-5.28); RED CELL DISTRIBUTION WIDTH 14.5 % (11.5-14.0); SEGMENTED NEUTROPHILS % (AUTO) 63.7 % (42-78); WHITE BLOOD COUNT 8.2 10^3/uL (4.0-10.5)
[2016-12-25 05:36] LABS: ANION GAP 8 (5-19); BLOOD UREA NITROGEN 4 mg/dL (7-20); CARBON DIOXIDE 26 mmol/L (22-30); CHLORIDE 106 mmol/L (98-107); CREATININE RESULT 0.35 mg/dL (0.52-1.25); GLUCOSE 84 mg/dL (75-110); POTASSIUM 3.5 mmol/L (3.6-5.0); SODIUM 139.5 mmol/L (137-145)
[2016-12-25] MEDS ORDERED: POTASSI CL 20 MEQ/50 ML RIDER 20 MEQ/50 ML RTUPB IV ONE (07:30)
[2016-12-25] MEDS: ALBUTEROL SULFATE 0.083% NEB 2.5 MG/3 ML AMPUL NEB PRN ×2 (09:49→15:34)
[2016-12-25] MEDS: LANSOPRAZOLE 30 MG TAB.RAP.DR PO SCH (10:26)
[2016-12-25] MEDS: DOXYCYCLINE HYCLATE 100 MG TABLET PO SCH (10:26)
[2016-12-25] MEDS: PREDNISONE 10 MG TABLET PO SCH (10:27)
[2016-12-25] MEDS: GUAIFENESIN 600 MG TABLET.SA PO SCH ×2 (10:27→21:36)
[2016-12-25] MEDS: CYCLOSPORINE 0.05% OPH EMULSIO 0.4 ML DROPERETTE OU SCH ×2 (10:27→17:22)
[2016-12-25] MEDS: CLONIDINE HCL 0.1 MG TABLET PO SCH ×2 (10:27→21:36)
[2016-12-25] MEDS: FONDAPARINUX SODIUM INJ 2.5 MG/0.5 ML DISP.SYRIN SUBCUT SCH ×2 (10:28→21:36)
[2016-12-25] MEDS: NYSTATIN/TRIAMCIN CREAM 15 GM TP SCH ×2 (10:28→17:22)
--- NOTE | 2016-12-25 11:22 | PDOC PROGRESS REPORT ---
Subjective Progress Note for:: 12/25/16 Subjective:: Patient states she is still having nausea, vomiting, diarrhea, and productive cough. She really doesn't feel any better than yesterday. She states that 1 mg Dilaudid does not really for pain as she is on chronic outpatient oxycodone for pain management. Patient denies fever, chills, headache, new focal weakness , chest pain, shortness of breath, abdominal pain, diarrhea, constipation. Physical Exam Vital Signs: Temp Pulse Resp BP Pulse Ox 98.4 F 130 H 16 137/89 H 97 12/25/16 07:28 12/25/16 09:44 12/25/16 09:44 12/25/16 07:28 12/25/16 09:44 Intake & Output 12/24/16 12/25/16 12/26/16 06:59 06:59 06:59 Intake Total 1370 1625 Balance 1370 1625 Weight 47.8 kg 48.2 kg GENERAL: No acute distress, ill appearing HEENT: Conjunctiva clear, nonicteric, moist mucous membranes, no JVD, midline trachea RESPIRATORY: Right posterior lung field rhonchi CARDIAC: Regular rate and rhythm, no murmurs/gallops/rubs ABDOMEN: Soft, nondistended, mild epigastric tenderness, positive bowel sounds, no rebound, no guarding. Ostomy bag covering stoma from prior gastrostomy tube EXTREMETIES: No edema, cyanosis, clubbing NEUROLOGIC: Alert, oriented to person/place/time, CN's grossly intact, no focal deficits SKIN: No rash, wounds PSYCH: Normal mood, flat affect Results Laboratory Results: 12/25/16 03:53 12/25/16 03:53 12/24/16 12/25/16 12/25/16 17:40 03:53 03:53 WBC 8.2 RBC 3.14 L Hgb 9.6 L Hct 29.0 L MCV 93 MCH 30.7 MCHC 33.2 RDW 14.5 H Plt Count 137 L Seg Neutrophils % 63.7 Lymphocytes % 22.5 Monocytes % 12.3 Eosinophils % 1.2 Basophils % 0.3 Absolute Neutrophils 5.2 Absolute Lymphocytes 1.8 Absolute Monocytes 1.0 Absolute Eosinophils 0.1 Absolute Basophils 0.0 Sodium 139.5 Potassium 3.5 L Chloride 106 Carbon Dioxide 26 Anion Gap 8 BUN 4 L Creatinine 0.35 L Est GFR ( Amer) > 60 Est GFR (Non-Af Amer) > 60 Glucose 84 Calcium 8.0 L Stool for White Cells NO WBCs SEEN Impressions: Acute Abdomen Series 12/22/16 11:46 IMPRESSION: Minimal airspace disease in the right upper lobe probably atelectasis. There is bibasilar atelectasis as well. Chest X-Ray 12/24/16 10:33 IMPRESSION: Mild residual or recurrent pneumonia on the right. Assessment & Plan - Diagnosis (1) Sepsis Qualifiers: Sepsis type: sepsis due to unspecified organism Qualified Code(s): A41.9 - Sepsis, unspecified organism Is this a current diagnosis for this admission?: YesPlan: Secondary to right lung pneumonia. White blood count now normal. Patient afebrile. (2) RLL pneumonia Qualifiers: Pneumonia type: due to unspecified organism Qualified Code(s): J18.1 - Lobar pneumonia, unspecified organism Is this a current diagnosis for this admission?: YesPlan: Likely bacterial. I would like to discontinue oral antibiotics as patient is having persistent nausea and vomiting. Start IV Levaquin. Sputum cultures and blood cultures pending. (3) Vomiting Qualifiers: Vomiting type: unspecified Vomiting Intractability: unspecified Nausea presence: with nausea Qualified Code(s): R11.2 - Nausea with vomiting , unspecified Is this a current diagnosis for this admission?: YesPlan: Continue clear liquid diet and IV fluids. (4) Abdominal pain Qualifiers: Abdominal location: unspecified location Qualified Code(s): R10.9 - Unspecified abdominal pain Is this a current diagnosis for this admission?: YesPlan: Patient will need to follow-up with her GI doctor (Dr. Kelli Kramer) after discharge. (5) Dehydration, severe Is this a current diagnosis for this admission?: YesPlan: Resume IV fluids until oral intake and vomiting improved. (6) Chronic pain Is this a current diagnosis for this admission?: YesPlan: Patient is chronic opiate dependent followed by pain management Dr. Anila Gonzales. According to database she has had Percocet 7.5/325 120 tablets filled on 12/19/2016. Increase Dilaudid to 2 mg IV every 4 hours when necessary. (7) Abnormal urinalysis Is this a current diagnosis for this admission?: YesPlan: Patient on IV Levaquin for pneumonia anyway. (8) Antiphospholipid syndrome Is this a current diagnosis for this admission?: Yes (9) HIT (heparin-induced thrombocytopenia) Is this a current diagnosis for this admission?: Yes (10) History of pulmonary embolism Is this a current diagnosis for this admission?: YesPlan: Continue Arixtra 2.5 mg twice daily. Patient is followed by hematology (Dr. Faye ) as an outpatient.. (11) Lupus (systemic lupus erythematosus) Is this a current diagnosis for this admission?: YesPlan: Hold CellCept, Plaquenil until infectious disease issues improve. Continue prednisone 10 mg daily for now. (12) Diarrhea Is this a current diagnosis for this admission?: YesPlan: Likely secondary to antibiotic use. C. difficile negative. - Time Time Spent with patient: 35 or more minutes Anticipated discharge: Home Within: within 72 hours
[2016-12-25] MEDS: LEVOFLOXACIN 750 MG/D5W RTU 750 MG/150 ML RTUPB IV SCH (12:33)
[2016-12-25] MEDS: PROMETHAZINE HCL INJ 25 MG/1 ML VIAL IV PRN (13:25)
[2016-12-25] MEDS ORDERED: NORMAL SALINE 1000 ML 1,000 ML IV ONE (18:01)
[2016-12-25] MEDS: ZOLPIDEM TARTRATE 5 MG TABLET PO SCH (21:36)
[2016-12-26] MEDS: HYDROMORPHONE HCL INJ/PF 2 MG/ML AMPULE IV PRN ×6 (02:43→23:47)
[2016-12-26] MEDS: ONDANSETRON HCL INJ/PF 4 MG/2 ML SDV IV PRN ×3 (06:53→19:38)
[2016-12-26 07:07] LABS: ABSOLUTE EOSINOPHILS # (AUTO) 0.3 10^3/uL (0.0-0.6); ABSOLUTE LYMPHOCYTES (AUTO) 1.6 10^3/uL (0.5-4.7); ABSOLUTE MONOCYTES (AUTO) 1.1 10^3/uL (0.1-1.4); ABSOLUTE NEUT (AUTO) 13.9 10^3/uL (1.7-8.2); BASOPHILS % (AUTO) 0.1 % (0-2); HEMATOCRIT 25.2 % (36.0-47.0); HEMOGLOBIN 8.1 g/dL (12.0-15.5); HGB HCT DIFFERENCE -0.9; LYMPHOCYTES % (AUTO) 9.5 % (13-45); MEAN CORPUSCULAR HEMOGLOBIN 30.1 pg (27.0-33.4); MEAN CORPUSCULAR HGB CONC 32.3 g/dL (32.0-36.0); MEAN CORPUSCULAR VOLUME 93 fl (80-97); MONOCYTES % (AUTO) 6.5 % (3-13); RED CELL DISTRIBUTION WIDTH 14.8 % (11.5-14.0); SEGMENTED NEUTROPHILS % (AUTO) 81.9 % (42-78)
[2016-12-26 07:23] LABS: ANION GAP 10 (5-19); CALCIUM 8.1 mg/dL (8.4-10.2); CARBON DIOXIDE 24 mmol/L (22-30); CHLORIDE 107 mmol/L (98-107); CREATININE RESULT 0.32 mg/dL (0.52-1.25); GLUCOSE 103 mg/dL (75-110); POTASSIUM 3.4 mmol/L (3.6-5.0); SODIUM 140.7 mmol/L (137-145)
[2016-12-26 07:25] LABS: WHITE BLOOD COUNT 16.9 10^3/uL (4.0-10.5)
[2016-12-26 07:28] LABS: BLOOD UREA NITROGEN < 2 mg/dL (7-20)
[2016-12-26] MEDS: GUAIFENESIN 600 MG TABLET.SA PO SCH ×2 (09:34→21:48)
[2016-12-26] MEDS: PREDNISONE 10 MG TABLET PO SCH (09:34)
[2016-12-26] MEDS: CLONIDINE HCL 0.1 MG TABLET PO SCH ×2 (09:34→21:47)
[2016-12-26] MEDS: LANSOPRAZOLE 30 MG TAB.RAP.DR PO SCH (09:34)
[2016-12-26] MEDS: CYCLOSPORINE 0.05% OPH EMULSIO 0.4 ML DROPERETTE OU SCH ×2 (09:35→18:06)
[2016-12-26] MEDS: FONDAPARINUX SODIUM INJ 2.5 MG/0.5 ML DISP.SYRIN SUBCUT SCH ×2 (09:35→21:47)
[2016-12-26] MEDS: NYSTATIN/TRIAMCIN CREAM 15 GM TP SCH ×2 (09:37→18:06)
[2016-12-26] MEDS: LEVOFLOXACIN 750 MG/D5W RTU 750 MG/150 ML RTUPB IV SCH (11:10)
[2016-12-26] MEDS: DEXTROSE 5%-1/2 NORMAL SALINE 1,000 ML IV PRN (19:38)
--- NOTE | 2016-12-26 19:41 | PDOC PROGRESS REPORT ---
Subjective Progress Note for:: 12/26/16 Subjective:: Her cough has improved though it is still productive. She feels better overall. She has less nausea and requests advancement of her diet. Physical Exam Vital Signs: Temp Pulse Resp BP Pulse Ox 98.3 F 118 H 18 139/95 H 100 12/26/16 15:50 12/26/16 15:50 12/26/16 15:50 12/26/16 15:50 12/26/16 15:50 Intake & Output 12/25/16 12/26/16 12/27/16 06:59 06:59 06:59 Intake Total 1625 2360 1833 Balance 1625 2360 1833 Weight 48.2 kg 48.2 kg Additional comments: GENERAL: No acute distress HEENT: Conjunctiva clear, nonicteric, moist mucous membranes, no JVD, midline trachea RESPIRATORY: Right posterior lung field rhonchi CARDIAC: Regular rate and rhythm, no murmurs/gallops/rubs ABDOMEN: Soft, nondistended, nontender, positive bowel sounds, no rebound, no guarding. Ostomy bag covering stoma from prior gastrostomy tube EXTREMETIES: No edema, cyanosis, clubbing NEUROLOGIC: Alert, oriented to person/place/time, CN's grossly intact, no focal deficits SKIN: No rash, wounds PSYCH: Normal mood, flat affect Results Laboratory Results: 12/26/16 06:50 12/26/16 06:50 12/26/16 12/26/16 06:50 06:50 WBC 16.9 H D RBC 2.70 L Hgb 8.1 L Hct 25.2 L MCV 93 MCH 30.1 MCHC 32.3 RDW 14.8 H Plt Count 130 L Seg Neutrophils % 81.9 H Lymphocytes % 9.5 L Monocytes % 6.5 Eosinophils % 2.0 Basophils % 0.1 Absolute Neutrophils 13.9 H Absolute Lymphocytes 1.6 Absolute Monocytes 1.1 Absolute Eosinophils 0.3 Absolute Basophils 0.0 Sodium 140.7 Potassium 3.4 L Chloride 107 Carbon Dioxide 24 Anion Gap 10 BUN < 2 L Creatinine 0.32 L Est GFR ( Amer) > 60 Est GFR (Non-Af Amer) > 60 Glucose 103 Calcium 8.1 L Impressions: Acute Abdomen Series 12/22/16 11:46 IMPRESSION: Minimal airspace disease in the right upper lobe probably atelectasis. There is bibasilar atelectasis as well. Chest X-Ray 12/24/16 10:33 IMPRESSION: Mild residual or recurrent pneumonia on the right. Assessment & Plan - Diagnosis (1) Sepsis Qualifiers: Sepsis type: sepsis due to unspecified organism Qualified Code(s): A41.9 - Sepsis, unspecified organism Is this a current diagnosis for this admission?: YesPlan: This has essentially resolved. (2) RLL pneumonia Qualifiers: Pneumonia type: due to unspecified organism Qualified Code(s): J18.1 - Lobar pneumonia, unspecified organism Is this a current diagnosis for this admission?: YesPlan: Continue IV fluids and antibiotics. Her CellCept and Plaquenil are on hold. She remains on prednisone. (3) Abdominal pain Qualifiers: Abdominal location: unspecified location Qualified Code(s): R10.9 - Unspecified abdominal pain Is this a current diagnosis for this admission?: Yes (4) Nausea & vomiting Qualifiers: Vomiting type: unspecified Vomiting Intractability: non-intractable Qualified Code(s): R11.2 - Nausea with vomiting, unspecified Plan: Abdominal pain and nausea have improved. Will advance her diet. (5) Dehydration, severe Is this a current diagnosis for this admission?: YesPlan: Improved on IV fluids. We'll continue for now. We'll continue monitoring. (6) Lupus (systemic lupus erythematosus) Is this a current diagnosis for this admission?: YesPlan: Currently off of CellCept and Plaquenil while treating her right lower lobe pneumonia. She continues on low-dose prednisone. (7) Antiphospholipid syndrome Is this a current diagnosis for this admission?: Yes (8) HIT (heparin-induced thrombocytopenia) Is this a current diagnosis for this admission?: Yes (9) History of pulmonary embolism Is this a current diagnosis for this admission?: YesPlan: Continue Arixtra.
[2016-12-26] MEDS: ZOLPIDEM TARTRATE 5 MG TABLET PO SCH (21:48)
[2016-12-27] MEDS: HYDROMORPHONE HCL INJ/PF 2 MG/ML AMPULE IV PRN ×5 (03:54→22:18)
[2016-12-27] MEDS: ONDANSETRON HCL INJ/PF 4 MG/2 ML SDV IV PRN ×2 (03:54→12:23)
[2016-12-27 08:49] LABS: ABSOLUTE EOSINOPHILS # (AUTO) 0.4 10^3/uL (0.0-0.6); ABSOLUTE LYMPHOCYTES (AUTO) 1.5 10^3/uL (0.5-4.7); ABSOLUTE NEUT (AUTO) 7.2 10^3/uL (1.7-8.2); BASOPHILS % (AUTO) 0.2 % (0-2); HEMATOCRIT 28.2 % (36.0-47.0); HEMOGLOBIN 9.3 g/dL (12.0-15.5); HGB HCT DIFFERENCE -0.3; LYMPHOCYTES % (AUTO) 14.8 % (13-45); MEAN CORPUSCULAR HEMOGLOBIN 30.4 pg (27.0-33.4); MEAN CORPUSCULAR HGB CONC 32.9 g/dL (32.0-36.0); MEAN CORPUSCULAR VOLUME 92 fl (80-97); RED BLOOD COUNT 3.06 10^6/uL (3.72-5.28); RED CELL DISTRIBUTION WIDTH 14.1 % (11.5-14.0); WHITE BLOOD COUNT 10.2 10^3/uL (4.0-10.5)
[2016-12-27 09:10] LABS: ANION GAP 9 (5-19); CARBON DIOXIDE 26 mmol/L (22-30); CHLORIDE 106 mmol/L (98-107); GLUCOSE 94 mg/dL (75-110); POTASSIUM 3.1 mmol/L (3.6-5.0); SODIUM 140.7 mmol/L (137-145)
[2016-12-27 09:11] LABS: BLOOD UREA NITROGEN < 2 mg/dL (7-20)
[2016-12-27] MEDS: CYCLOSPORINE 0.05% OPH EMULSIO 0.4 ML DROPERETTE OU SCH ×2 (10:39→17:14)
[2016-12-27] MEDS: GUAIFENESIN 600 MG TABLET.SA PO SCH ×2 (10:40→22:17)
[2016-12-27] MEDS: NYSTATIN/TRIAMCIN CREAM 15 GM TP SCH ×2 (10:40→17:15)
[2016-12-27] MEDS: CLONIDINE HCL 0.1 MG TABLET PO SCH ×2 (10:40→22:18)
[2016-12-27] MEDS: PREDNISONE 10 MG TABLET PO SCH (10:40)
[2016-12-27] MEDS: LANSOPRAZOLE 30 MG TAB.RAP.DR PO SCH (10:40)
[2016-12-27] MEDS: FONDAPARINUX SODIUM INJ 2.5 MG/0.5 ML DISP.SYRIN SUBCUT SCH ×2 (10:41→22:17)
[2016-12-27] MEDS: LEVOFLOXACIN 750 MG/D5W RTU 750 MG/150 ML RTUPB IV SCH (12:22)
[2016-12-27] MEDS ORDERED: IBUPROFEN 400 MG TABLET PO PRN (16:20)
--- NOTE | 2016-12-27 16:20 | PDOC PROGRESS REPORT ---
Subjective Progress Note for:: 12/27/16 Subjective:: She continues to have a coarse productive cough though she feels better overall. She continues to have a degree of nausea and vomiting and has been unable to eat much. She complains of headache and asks for Fioricet or Motrin but wants to continue the Dilaudid for her body aches and pains. We discussed the fact that her multiple medications may be contributing to her nausea. Physical Exam Vital Signs: Temp Pulse Resp BP Pulse Ox 98.4 F 116 H 16 134/92 H 98 12/27/16 11:19 12/27/16 14:47 12/27/16 14:47 12/27/16 11:19 12/27/16 14:47 Intake & Output 12/26/16 12/27/16 12/28/16 06:59 06:59 06:59 Intake Total 2360 3513 Output Total 2050 Balance 2360 1463 Weight 48.2 kg 48.2 kg Additional comments: GENERAL: No acute distress HEENT: Conjunctiva clear, nonicteric, moist mucous membranes, no JVD, midline trachea RESPIRATORY: Right posterior lung field rhonchi, generally improved air movement. CARDIAC: Regular rate and rhythm, no murmurs/gallops/rubs ABDOMEN: Soft, nondistended, nontender, positive bowel sounds, no rebound, no guarding. Ostomy bag covering stoma from prior gastrostomy tube EXTREMETIES: No edema, cyanosis, clubbing NEUROLOGIC: Alert, oriented to person/place/time, CN's grossly intact, no focal deficits SKIN: No rash, wounds PSYCH: Normal mood, flat affect Results Laboratory Results: 12/27/16 08:33 12/27/16 08:33 12/27/16 12/27/16 08:33 08:33 WBC 10.2 RBC 3.06 L Hgb 9.3 L Hct 28.2 L MCV 92 MCH 30.4 MCHC 32.9 RDW 14.1 H Plt Count 152 Seg Neutrophils % 71.0 Lymphocytes % 14.8 Monocytes % 10.0 Eosinophils % 4.0 Basophils % 0.2 Absolute Neutrophils 7.2 Absolute Lymphocytes 1.5 Absolute Monocytes 1.0 Absolute Eosinophils 0.4 Absolute Basophils 0.0 Sodium 140.7 Potassium 3.1 L Chloride 106 Carbon Dioxide 26 Anion Gap 9 BUN < 2 L Creatinine 0.30 L Est GFR ( Amer) > 60 Est GFR (Non-Af Amer) > 60 Glucose 94 Calcium 8.0 L 12/24/16 17:40 Sputum Gram Stain - Final 12/24/16 17:40 Sputum Sputum Culture - Final NORMAL TR Impressions: Acute Abdomen Series 12/22/16 11:46 IMPRESSION: Minimal airspace disease in the right upper lobe probably atelectasis. There is bibasilar atelectasis as well. Chest X-Ray 12/24/16 10:33 IMPRESSION: Mild residual or recurrent pneumonia on the right. Assessment & Plan - Diagnosis (1) Sepsis Qualifiers: Sepsis type: sepsis due to unspecified organism Qualified Code(s): A41.9 - Sepsis, unspecified organism Is this a current diagnosis for this admission?: YesPlan: Resolved. (2) RLL pneumonia Qualifiers: Pneumonia type: due to unspecified organism Qualified Code(s): J18.1 - Lobar pneumonia, unspecified organism Is this a current diagnosis for this admission?: YesPlan: Continue Levaquin, prednisone, albuterol. Continue holding Plaquenil and CellCept. (3) Abdominal pain Qualifiers: Abdominal location: unspecified location Qualified Code(s): R10.9 - Unspecified abdominal pain Is this a current diagnosis for this admission?: YesPlan: Abdominal pain and nausea/vomiting are variable. She has been unable to advance her diet. (4) Nausea & vomiting Qualifiers: Vomiting type: unspecified Vomiting Intractability: non-intractable Qualified Code(s): R11.2 - Nausea with vomiting, unspecified (5) Dehydration, severe Is this a current diagnosis for this admission?: YesPlan: This has resolved on IV fluids. We'll continue as she is not yet eating/ drinking sufficiently. (6) Lupus (systemic lupus erythematosus) Is this a current diagnosis for this admission?: YesPlan: Currently off CellCept and Plaquenil while treating her right lower lobe pneumonia. She continues on low-dose prednisone. 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 Will observe the effect on the headache , abdominal pain and nausea.
[2016-12-27] MEDS: POTASSIUM CHLORIDE 10 MEQ TABLET.SA PO SCH ×2 (17:14→22:17)
[2016-12-27] MEDS: DEXTROSE 5%-1/2 NORMAL SALINE 1,000 ML IV PRN (20:08)
[2016-12-27] MEDS: PROMETHAZINE HCL INJ 25 MG/1 ML VIAL IV PRN (20:08)
[2016-12-27] MEDS: ZOLPIDEM TARTRATE 5 MG TABLET PO SCH (22:18)
[2016-12-28] MEDS: POTASSIUM CHLORIDE 10 MEQ TABLET.SA PO SCH ×6 (02:02→21:50)
[2016-12-28] MEDS: HYDROMORPHONE HCL INJ/PF 2 MG/ML AMPULE IV PRN ×6 (02:03→21:51)
[2016-12-28 06:55] LABS: ANION GAP 7 (5-19); BLOOD UREA NITROGEN 2 mg/dL (7-20); CALCIUM 7.7 mg/dL (8.4-10.2); CARBON DIOXIDE 27 mmol/L (22-30); CHLORIDE 107 mmol/L (98-107); CREATININE RESULT 0.35 mg/dL (0.52-1.25); GLUCOSE 80 mg/dL (75-110); MAGNESIUM 1.4 mg/dL (1.6-2.3); POTASSIUM 3.4 mmol/L (3.6-5.0); SODIUM 141.3 mmol/L (137-145)
[2016-12-28] MEDS: DEXTROSE 5%-1/2 NORMAL SALINE 1,000 ML IV PRN (06:57)
[2016-12-28] MEDS: LANSOPRAZOLE 30 MG TAB.RAP.DR PO SCH (09:31)
[2016-12-28] MEDS: GUAIFENESIN 600 MG TABLET.SA PO SCH ×2 (09:31→21:50)
[2016-12-28] MEDS: PREDNISONE 10 MG TABLET PO SCH (09:31)
[2016-12-28] MEDS: CLONIDINE HCL 0.1 MG TABLET PO SCH ×2 (09:31→21:50)
[2016-12-28] MEDS: CYCLOSPORINE 0.05% OPH EMULSIO 0.4 ML DROPERETTE OU SCH ×2 (09:32→18:14)
[2016-12-28] MEDS: NYSTATIN/TRIAMCIN CREAM 15 GM TP SCH ×2 (09:33→18:14)
[2016-12-28] MEDS: FONDAPARINUX SODIUM INJ 2.5 MG/0.5 ML DISP.SYRIN SUBCUT SCH ×2 (09:36→21:49)
[2016-12-28] MEDS: LEVOFLOXACIN 750 MG/D5W RTU 750 MG/150 ML RTUPB IV SCH (11:46)
[2016-12-28] MEDS: ONDANSETRON HCL INJ/PF 4 MG/2 ML SDV IV PRN ×2 (13:44→21:52)
[2016-12-28] MEDS: ALBUTEROL SULFATE 0.083% NEB 2.5 MG/3 ML AMPUL NEB PRN (14:08)
--- NOTE | 2016-12-28 15:32 | PDOC PROGRESS REPORT ---
Subjective Progress Note for:: 12/28/16 Subjective:: The patient is under treatment for a right lower lobe pneumonia. She is immunocompromised by her lupus and by her lupus medications which are currently on hold. She continues to have a coarse productive cough, though it has significantly improved and she feels better overall. She continues to have a degree of associated nausea and vomiting and has been unable to eat much. She uses Dilaudid for body aches and pains. Motrin has helped her headache. We again discussed the fact that her multiple medications may be contributing to her nausea. Physical Exam Vital Signs: Temp Pulse Resp BP Pulse Ox 98.4 F 108 H 16 134/97 H 97 12/28/16 12:44 12/28/16 14:08 12/28/16 14:08 12/28/16 12:44 12/28/16 14:08 Intake & Output 12/27/16 12/28/16 12/29/16 06:59 06:59 06:59 Intake Total 3513 5548 Output Total 2050 3 Balance 1463 5545 Weight 48.2 kg 46.4 kg Additional comments: GENERAL: No acute distress HEENT: Conjunctiva clear, nonicteric, moist mucous membranes, no JVD, midline trachea RESPIRATORY: Right posterior lung field rhonchi persist, generally improved air movement. CARDIAC: Regular rate and rhythm, no murmurs/gallops/rubs ABDOMEN: Soft, nondistended, nontender, positive bowel sounds, no rebound, no guarding. Ostomy bag covering stoma from prior gastrostomy tube EXTREMETIES: No edema, cyanosis, clubbing NEUROLOGIC: Alert, oriented to person/place/time, CN's grossly intact, no focal deficits SKIN: No rash, wounds PSYCH: Normal mood, flat affect Results Laboratory Results: 12/27/16 08:33 12/28/16 05:45 12/28/16 05:45 Sodium 141.3 Potassium 3.4 L Chloride 107 Carbon Dioxide 27 Anion Gap 7 BUN 2 L Creatinine 0.35 L Est GFR ( Amer) > 60 Est GFR (Non-Af Amer) > 60 Glucose 80 Calcium 7.7 L Magnesium 1.4 L Impressions: Acute Abdomen Series 12/22/16 11:46 IMPRESSION: Minimal airspace disease in the right upper lobe probably atelectasis. There is bibasilar atelectasis as well. Chest X-Ray 12/24/16 10:33 IMPRESSION: Mild residual or recurrent pneumonia on the right. Assessment & Plan - Diagnosis (1) RLL pneumonia Qualifiers: Pneumonia type: due to unspecified organism Qualified Code(s): J18.1 - Lobar pneumonia, unspecified organism Is this a current diagnosis for this admission?: YesPlan: Continue Levaquin IV, prednisone and albuterol. Continue holding Plaquenil and CellCept. (2) Sepsis Qualifiers: Sepsis type: sepsis due to unspecified organism Qualified Code(s): A41.9 - Sepsis, unspecified organism Is this a current diagnosis for this admission?: YesPlan: Sepsis syndrome has resolved. (3) Abdominal pain Qualifiers: Abdominal location: unspecified location Qualified Code(s): R10.9 - Unspecified abdominal pain Is this a current diagnosis for this admission?: YesPlan: Abdominal pain, nausea and vomiting are variable. She is struggling to advance her diet. Some of these symptoms have been chronic for several years. (4) Nausea & vomiting Qualifiers: Vomiting type: unspecified Vomiting Intractability: non-intractable Qualified Code(s): R11.2 - Nausea with vomiting, unspecified (5) Dehydration, severe Is this a current diagnosis for this admission?: YesPlan: This has resolved on IV fluids. She continues on D5 0.5 NS at 100 mL per hour. We'll continue as she is not yet eating/drinking sufficiently. (6) Lupus (systemic lupus erythematosus) Is this a current diagnosis for this admission?: YesPlan: She is currently off CellCept and plaque Sonam while treating her right lower lobe pneumonia. She continues on low-dose prednisone. (7) Antiphospholipid syndrome Is this a current diagnosis for this admission?: Yes (8) HIT (heparin-induced thrombocytopenia) Is this a current diagnosis for this admission?: Yes (9) History of pulmonary embolism Is this a current diagnosis for this admission?: Yes (10) Headache Qualifiers: Headache type: unspecified Headache chronicity pattern: chronic headache Intractability: not intractable Qualified Code(s): R51 - Headache Is this a current diagnosis for this admission?: YesPlan: Low dose Motrin has helped the headache.
[2016-12-28] MEDS ORDERED: ALBUTEROL SULFATE 0.083% NEB 2.5 MG/3 ML AMPUL NEB PRN (19:51)
[2016-12-28] MEDS ORDERED: IBUPROFEN 400 MG TABLET PO PRN (19:54)
[2016-12-28] MEDS ORDERED: TIZANIDINE HCL 4 MG TABLET PO PRN (19:57)
[2016-12-28] MEDS ORDERED: PROMETHAZINE HCL INJ 25 MG/1 ML VIAL IV PRN (19:57)
[2016-12-28] MEDS: ZOLPIDEM TARTRATE 5 MG TABLET PO SCH (21:51)
[2016-12-28] MEDS ORDERED: HYDROXYCHLOROQUINE SULFATE 200 MG TABLET PO SCH (22:00)
[2016-12-29] MEDS: HYDROMORPHONE HCL INJ/PF 2 MG/ML AMPULE IV PRN ×5 (02:20→19:58)
[2016-12-29] MEDS: POTASSIUM CHLORIDE 10 MEQ TABLET.SA PO SCH ×4 (02:25→22:48)
[2016-12-29] MEDS: ONDANSETRON HCL INJ/PF 4 MG/2 ML SDV IV PRN ×2 (07:15→14:55)
[2016-12-29] MEDS: PREDNISONE 10 MG TABLET PO SCH (10:49)
[2016-12-29] MEDS: MYCOPHENOLATE MOFETIL 250 MG CAPSULE PO SCH (10:50)
[2016-12-29] MEDS: GUAIFENESIN 600 MG TABLET.SA PO SCH ×2 (10:50→22:43)
[2016-12-29] MEDS: LANSOPRAZOLE 30 MG TAB.RAP.DR PO SCH (10:50)
[2016-12-29] MEDS: CLONIDINE HCL 0.1 MG TABLET PO SCH ×2 (10:50→22:45)
[2016-12-29] MEDS: FONDAPARINUX SODIUM INJ 2.5 MG/0.5 ML DISP.SYRIN SUBCUT SCH ×2 (10:51→22:46)
[2016-12-29] MEDS: CYCLOSPORINE 0.05% OPH EMULSIO 0.4 ML DROPERETTE OU SCH ×2 (10:51→17:37)
[2016-12-29] MEDS: NYSTATIN/TRIAMCIN CREAM 15 GM TP SCH ×2 (10:51→17:35)
[2016-12-29] MEDS ORDERED: CETIRIZINE 10 MG TABLET PO ONE (11:30)
[2016-12-29] MEDS ORDERED: LEVOFLOXACIN 750 MG/D5W RTU 750 MG/150 ML RTUPB IV SCH (12:00)
[2016-12-29] MEDS: GABAPENTIN 300 MG CAPSULE PO SCH ×2 (13:44→22:41)
[2016-12-29] MEDS: FLUTICASONE/SALMETEROL DISKUS 250-50 MCG/DOSE IH SCH ×2 (13:45→22:53)
[2016-12-29] MEDS: DEXTROSE 5%-1/2 NORMAL SALINE 1,000 ML IV PRN (15:00)
--- NOTE | 2016-12-29 16:48 | PDOC PROGRESS REPORT ---
Subjective Progress Note for:: 12/29/16 Subjective:: Patient's him morning rounds. She is resting comfortably in bed. She denies any nausea, vomiting or abdominal pain the present time. She states her left appetite is slowly improving. She does have a productive cough raising thick yellow sputum. She denies any shortness of breath or dyspnea. She denies any significant pain at the present time. She does have chronic pain in her back secondary to her lupus. Physical Exam Vital Signs: Temp Pulse Resp BP Pulse Ox 98.1 F 86 16 133/98 H 100 12/29/16 07:00 12/29/16 07:00 12/29/16 07:00 12/29/16 07:00 12/29/16 07:00 Intake & Output 12/28/16 12/29/16 12/30/16 06:59 06:59 06:59 Intake Total 5548 3119 Output Total 3 3100 Balance 5545 19 Weight 46.4 kg 46.3 kg General appearance: PRESENT: no acute distress, thin, well-developed Head exam: PRESENT: atraumatic, normocephalic Eye exam: PRESENT: conjunctiva pink, EOMI, PERRLA. ABSENT: scleral icterus Ear exam: PRESENT: normal external ear exam Mouth exam: PRESENT: moist, tongue midline Neck exam: ABSENT: carotid bruit, JVD, lymphadenopathy, thyromegaly Respiratory exam: PRESENT: clear to auscultation tavia. ABSENT: rales, rhonchi, wheezes Cardiovascular exam: PRESENT: RRR. ABSENT: diastolic murmur, rubs, systolic murmur Pulses: PRESENT: normal dorsalis pedis pul Vascular exam: PRESENT: normal capillary refill GI/Abdominal exam: PRESENT: normal bowel sounds, soft, other. ABSENT: distended , guarding, mass, organolmegaly, rebound, tenderness Rectal exam: PRESENT: deferred Extremities exam: PRESENT: full ROM. ABSENT: calf tenderness, clubbing, pedal edema Neurological exam: PRESENT: alert, awake, oriented to person, oriented to place , oriented to time, oriented to situation, CN II-XII grossly intact. ABSENT: motor sensory deficit Psychiatric exam: PRESENT: appropriate affect, normal mood. ABSENT: homicidal ideation, suicidal ideation Skin exam: PRESENT: dry, intact, warm. ABSENT: cyanosis, rash Results Laboratory Results: 12/27/16 08:33 12/28/16 05:45 Impressions: Acute Abdomen Series 12/22/16 11:46 IMPRESSION: Minimal airspace disease in the right upper lobe probably atelectasis. There is bibasilar atelectasis as well. Chest X-Ray 12/24/16 10:33 IMPRESSION: Mild residual or recurrent pneumonia on the right. Assessment & Plan - Diagnosis (1) Dehydration, severe Is this a current diagnosis for this admission?: YesPlan: Postoperative IV hydration, antibiotics and pain management. (2) Diarrhea Is this a current diagnosis for this admission?: YesPlan: Presently resolved. (3) Chronic pain Is this a current diagnosis for this admission?: YesPlan: Continue current pain management. (4) Antiphospholipid syndrome Is this a current diagnosis for this admission?: YesPlan: Continue current medications per rheumatology. (5) Lupus (systemic lupus erythematosus) Is this a current diagnosis for this admission?: YesPlan: She is currently on CellCept and Plaquenil. Her prednisone is on hold, secondary to sepsis. (6) Sepsis Qualifiers: Sepsis type: sepsis due to unspecified organism Qualified Code(s): A41.9 - Sepsis, unspecified organism Is this a current diagnosis for this admission?: YesPlan: His resolved with IV antibiotics. (7) Migraine headache Qualifiers: Migraine type: unspecified Intractability: not intractable Is this a current diagnosis for this admission?: YesPlan: Continue motrin - Time Time Spent with patient: 25-34 minutes Critical Time spent with patient: 15-24 minutes Smoking Cessation Education: 3 to 10 minutes Medications reviewed and adjusted accordingly: Yes Anticipated discharge: Home Within: within 48 hours
[2016-12-29] MEDS: ZOLPIDEM TARTRATE 5 MG TABLET PO SCH (22:43)
[2016-12-30] MEDS: HYDROMORPHONE HCL INJ/PF 2 MG/ML AMPULE IV PRN ×6 (00:18→21:58)
[2016-12-30] MEDS: DEXTROSE 5%-1/2 NORMAL SALINE 1,000 ML IV PRN (01:13)
[2016-12-30] MEDS: GABAPENTIN 300 MG CAPSULE PO SCH ×3 (05:37→21:55)
[2016-12-30 06:08] LABS: ANION GAP 7 (5-19); BLOOD UREA NITROGEN 4 mg/dL (7-20); CARBON DIOXIDE 30 mmol/L (22-30); CHLORIDE 104 mmol/L (98-107); CREATININE RESULT 0.47 mg/dL (0.52-1.25); GLUCOSE 91 mg/dL (75-110); POTASSIUM 3.9 mmol/L (3.6-5.0); SODIUM 140.5 mmol/L (137-145)
[2016-12-30] MEDS: FONDAPARINUX SODIUM INJ 2.5 MG/0.5 ML DISP.SYRIN SUBCUT SCH ×2 (09:29→21:54)
[2016-12-30] MEDS: CYCLOSPORINE 0.05% OPH EMULSIO 0.4 ML DROPERETTE OU SCH ×2 (09:35→17:39)
[2016-12-30] MEDS: GUAIFENESIN 600 MG TABLET.SA PO SCH ×2 (09:40→21:56)
[2016-12-30] MEDS: LEVOFLOXACIN 500 MG TABLET PO SCH (09:44)
[2016-12-30] MEDS: CETIRIZINE 10 MG TABLET PO SCH (09:48)
[2016-12-30] MEDS: PREDNISONE 10 MG TABLET PO SCH (09:48)
[2016-12-30] MEDS: MYCOPHENOLATE MOFETIL 250 MG CAPSULE PO SCH (09:48)
[2016-12-30] MEDS: LANSOPRAZOLE 30 MG TAB.RAP.DR PO SCH (09:48)
[2016-12-30] MEDS: CLONIDINE HCL 0.1 MG TABLET PO SCH ×2 (09:49→21:57)
[2016-12-30] MEDS: FLUTICASONE/SALMETEROL DISKUS 250-50 MCG/DOSE IH SCH ×2 (09:59→21:58)
[2016-12-30] MEDS: NYSTATIN/TRIAMCIN CREAM 15 GM TP SCH ×2 (10:00→17:40)
[2016-12-30] MEDS: POTASSIUM CHLORIDE 10 MEQ TABLET.SA PO SCH ×2 (11:01→21:59)
--- NOTE | 2016-12-30 16:30 | PDOC PROGRESS REPORT ---
Subjective Progress Note for:: 12/30/16 Subjective:: Patient's him morning rounds. She is resting comfortably in bed. She denies any nausea, vomiting or abdominal pain the present time. She states her left appetite is slowly improving. She does have a productive cough raising thick yellow sputum. She denies any shortness of breath or dyspnea. She denies any significant pain at the present time. She does have chronic pain in her back secondary to her lupus. Physical Exam Vital Signs: Temp Pulse Resp BP Pulse Ox 98.2 F 117 H 20 131/94 H 100 12/30/16 11:11 12/30/16 11:11 12/30/16 11:11 12/30/16 11:11 12/30/16 11:11 Intake & Output 12/29/16 12/30/16 12/31/16 06:59 06:59 06:59 Intake Total 3119 2660 Output Total 3100 1950 Balance 19 710 Weight 46.3 kg 51.6 kg General appearance: PRESENT: no acute distress, thin, well-developed Head exam: PRESENT: atraumatic, normocephalic Eye exam: PRESENT: conjunctiva pink, EOMI, PERRLA. ABSENT: scleral icterus Ear exam: PRESENT: normal external ear exam Mouth exam: PRESENT: moist, tongue midline Neck exam: ABSENT: carotid bruit, JVD, lymphadenopathy, thyromegaly Respiratory exam: PRESENT: rhonchi, symmetrical, unlabored Cardiovascular exam: PRESENT: RRR. ABSENT: diastolic murmur, rubs, systolic murmur Pulses: PRESENT: normal dorsalis pedis pul Vascular exam: PRESENT: normal capillary refill GI/Abdominal exam: PRESENT: normal bowel sounds, soft. ABSENT: distended, guarding, mass, organolmegaly, rebound, tenderness Rectal exam: PRESENT: deferred Extremities exam: PRESENT: full ROM. ABSENT: calf tenderness, clubbing, pedal edema Neurological exam: PRESENT: alert, awake, oriented to person, oriented to place , oriented to time, oriented to situation, CN II-XII grossly intact. ABSENT: motor sensory deficit Psychiatric exam: PRESENT: appropriate affect, normal mood. ABSENT: homicidal ideation, suicidal ideation Skin exam: PRESENT: dry, intact, warm. ABSENT: cyanosis, rash Results Laboratory Results: 12/27/16 08:33 12/30/16 04:50 12/30/16 04:50 Sodium 140.5 Potassium 3.9 Chloride 104 Carbon Dioxide 30 Anion Gap 7 BUN 4 L Creatinine 0.47 L Est GFR ( Amer) > 60 Est GFR (Non-Af Amer) > 60 Glucose 91 Calcium 8.0 L 12/24/16 17:30 Blood Blood Culture - Final NO GROWTH IN 5 DAYS 12/24/16 16:30 Blood Blood Culture - Final NO GROWTH IN 5 DAYS Impressions: Acute Abdomen Series 12/22/16 11:46 IMPRESSION: Minimal airspace disease in the right upper lobe probably atelectasis. There is bibasilar atelectasis as well. Chest X-Ray 12/24/16 10:33 IMPRESSION: Mild residual or recurrent pneumonia on the right. Assessment & Plan - Diagnosis (1) Dehydration, severe Is this a current diagnosis for this admission?: YesPlan: Postoperative IV hydration, antibiotics and pain management. (2) Diarrhea Is this a current diagnosis for this admission?: YesPlan: Presently resolved. (3) Chronic pain Is this a current diagnosis for this admission?: YesPlan: Continue current pain management. (4) Antiphospholipid syndrome Is this a current diagnosis for this admission?: YesPlan: Continue current medications per rheumatology. (5) Lupus (systemic lupus erythematosus) Is this a current diagnosis for this admission?: YesPlan: She is currently on CellCept and Plaquenil. Her prednisone is on hold, secondary to sepsis. (6) Sepsis Qualifiers: Sepsis type: sepsis due to unspecified organism Qualified Code(s): A41.9 - Sepsis, unspecified organism Is this a current diagnosis for this admission?: YesPlan: Resolved (7) Migraine headache Qualifiers: Migraine type: unspecified Intractability: not intractable Is this a current diagnosis for this admission?: YesPlan: Continue motrin - Time Time Spent with patient: 25-34 minutes Critical Time spent with patient: 15-24 minutes Anticipated discharge: Home with Homehealth Within: within 24 hours
[2016-12-30] MEDS: ZOLPIDEM TARTRATE 5 MG TABLET PO SCH (21:56)
[2016-12-31] MEDS: DEXTROSE 5%-1/2 NORMAL SALINE 1,000 ML IV PRN (02:04)
[2016-12-31] MEDS: HYDROMORPHONE HCL INJ/PF 2 MG/ML AMPULE IV PRN ×4 (02:06→15:33)
[2016-12-31] MEDS: GABAPENTIN 300 MG CAPSULE PO SCH ×2 (06:10→13:43)
[2016-12-31] MEDS: CLONIDINE HCL 0.1 MG TABLET PO SCH (11:12)
[2016-12-31] MEDS: POTASSIUM CHLORIDE 10 MEQ TABLET.SA PO SCH (11:12)
[2016-12-31] MEDS: PREDNISONE 10 MG TABLET PO SCH (11:12)
[2016-12-31] MEDS: CETIRIZINE 10 MG TABLET PO SCH (11:12)
[2016-12-31] MEDS: GUAIFENESIN 600 MG TABLET.SA PO SCH (11:12)
[2016-12-31] MEDS: LEVOFLOXACIN 500 MG TABLET PO SCH (11:13)
[2016-12-31] MEDS: ONDANSETRON HCL INJ/PF 4 MG/2 ML SDV IV PRN (11:13)
[2016-12-31] MEDS: FONDAPARINUX SODIUM INJ 2.5 MG/0.5 ML DISP.SYRIN SUBCUT SCH (11:13)
[2016-12-31] MEDS: LANSOPRAZOLE 30 MG TAB.RAP.DR PO SCH (11:13)
[2016-12-31] MEDS: CYCLOSPORINE 0.05% OPH EMULSIO 0.4 ML DROPERETTE OU SCH (11:19)
[2016-12-31] MEDS: FLUTICASONE/SALMETEROL DISKUS 250-50 MCG/DOSE IH SCH (11:19)
[2016-12-31] MEDS: NYSTATIN/TRIAMCIN CREAM 15 GM TP SCH (13:39)
[2016-12-31] MEDS: MYCOPHENOLATE MOFETIL 250 MG CAPSULE PO SCH (13:43)
--- NOTE | 2016-12-31 16:31 | PDOC DISCHARGE SUMMARY ---
General - Admit/Disc Date/PCP Admission Date/Primary Care Provider: 12/22/16 15:57 Discharge Date: 12/31/16 - Discharge Diagnosis (1) Dehydration, severe Is this a current diagnosis for this admission?: YesSummary: Resolved (2) Diarrhea Is this a current diagnosis for this admission?: YesSummary: Resolved (3) Chronic pain Is this a current diagnosis for this admission?: YesSummary: Continue with pain management (4) Antiphospholipid syndrome Is this a current diagnosis for this admission?: YesSummary: Continue current medications. Follow up with customer loyalty representative (5) Lupus (systemic lupus erythematosus) Is this a current diagnosis for this admission?: YesSummary: Continue current medications (6) Sepsis Is this a current diagnosis for this admission?: Yes (7) Migraine headache Is this a current diagnosis for this admission?: YesSummary: Continue current medications - Additional Information Resuscitation Status: Full Code Discharge Diet: Regular Discharge Activity: Activity As Tolerated, Balance Activity w/Rest Home Medications: Albuterol Sulfate [Ventolin Hfa] 1 puff IH TID 12/22/16 Apixaban [Eliquis 5 mg Tablet] 5 mg PO BID 12/22/16 Atenolol [Tenormin] 25 mg PO QAM 12/22/16 Butalb/Acetaminophen/Caffeine [Fioricet (50-325-40 mg) Tablet] 1 tab PO TIDP PRN 12/22/16 Cetirizine HCl [Zyrtec 10 mg Tablet] 10 mg PO DAILY 12/22/16 Clonidine HCl [Catapres 0.3 mg Tablet] 0.3 mg PO BID 12/22/16 Cyclosporine 0.05% Oph Emulsio [Restasis 0.05% Oph Emulsion Pf 0.4 ml] 1 drop OU BID 12/22/16 Fluticasone/Salmeterol [Advair 250-50 Diskus 28 dose] 1 puff IN Q12 12/22/16 Fondaparinux Sodium [Arixtra Inj 2.5 mg/0.5 ml Disp.syrin] 2.5 mg SQ BID Gabapentin [Neurontin 300 mg Capsule] 900 mg PO TID 12/22/16 Hydroxychloroquine Sulfate [Plaquenil 200 mg Tablet] 200 mg PO BID 12/22/16 Hydroxyzine HCl [Atarax 50 mg Tablet] 50 mg PO TIDP PRN 12/22/16 Ibuprofen [Motrin 800 mg Tablet] 800 mg PO QID 12/22/16 Levetiracetam 7.5 ml PO BID 12/22/16 Mycophenolate Mofetil 500 mg PO DAILY 12/22/16 Nystatin/Dexameth/Diphen [Magic Mouthwash] 5 ml PO ACHS 12/22/16 Ondansetron [Zofran Odt] 8 mg SL Q4HP PRN 12/22/16 Oxycodone HCl/Acetaminophen [Percocet 10-325 mg Tablet] 1 tab PO QIDP PRN Pantoprazole Sodium [Protonix] 40 mg PO DAILY 12/22/16 Prednisone [Deltasone 10 mg Tablet] 10 mg PO DAILY 12/22/16 Promethazine HCl [Phenergan 25 mg Tablet] 25 mg PO Q4HP PRN 12/22/16 Tizanidine HCl [Zanaflex 4 mg Tablet] 8 mg PO TIDP PRN 12/22/16 Zolpidem Tartrate [Ambien] 10 mg PO QHS 12/22/16 Guaifenesin [Mucinex Sr 600 mg Tablet.sa] 1,200 mg PO Q12 #14 tablet.sa Levofloxacin [Levaquin 500 mg Tablet] 500 mg PO DAILY #5 tablet 12/31/16 Nystatin/Triamcin [Mycolog-II Cream 15 gm] 1 applic TP BID #1 tube 12/31/16 History of Present Illness Patient complains of: Cough, chest congestion, abdominal pain and dysuria History of Present Illness: History of Present Illness: JOSE DUMONT is a 21 year old female with past medical history of lupus , DVT, anemia of chronic disease, malnutrition presents to the emergency department with one week cough, chest congestion, nausea, vomiting, upper abdominal discomfort. Patient is followed by customer loyalty representative Dr. Littlejohn in [facility]. She is also followed by Dr. Kelli Hein of GI in [facility]. It's noteworthy the patient had prior gastrostomy tube for supplemental tube feeding secondary to severe malnutrition. Gastrostomy tube was removed at [facility]. Hospital Course Hospital Course: Admitted to the hospitalist service on telemetry. She was started on IV broad- spectrum antibiotics and IV fluids. She was pancultured. She had difficulty with chronic pain management due to her antiphospholipid syndrome and lupus. Blood cultures and sputum cultures were negative. And back surgery escalated to oral Levaquin. She increased her activity slowly along with her diet. Today she feels ready for discharge. She will be discharged home with family with follow-up with her primary care provider and customer loyalty representative in the next 2 weeks. Physical Exam Vital Signs: Temp Pulse Resp BP Pulse Ox 98.4 F 117 H 18 124/95 H 100 12/31/16 07:52 12/31/16 07:52 12/31/16 07:52 12/31/16 07:52 12/31/16 07:52 Intake & Output 12/30/16 12/31/16 01/01/17 06:59 06:59 06:59 Intake Total 2660 3640 Output Total 1950 2393 Balance 710 1247 Weight 51.6 kg 47.1 kg General appearance: PRESENT: no acute distress, thin, well-developed Head exam: PRESENT: atraumatic, normocephalic Eye exam: PRESENT: conjunctiva pink, EOMI, PERRLA. ABSENT: scleral icterus Ear exam: PRESENT: normal external ear exam Mouth exam: PRESENT: moist, tongue midline Respiratory exam: PRESENT: rhonchi, symmetrical, unlabored Cardiovascular exam: PRESENT: RRR. ABSENT: diastolic murmur, rubs, systolic murmur Pulses: PRESENT: normal dorsalis pedis pul Vascular exam: PRESENT: normal capillary refill GI/Abdominal exam: PRESENT: normal bowel sounds, soft. ABSENT: distended, guarding, mass, organolmegaly, rebound, tenderness Rectal exam: PRESENT: deferred Extremities exam: PRESENT: full ROM. ABSENT: calf tenderness, clubbing, pedal edema Neurological exam: PRESENT: alert, awake, oriented to person, oriented to place , oriented to time, oriented to situation, CN II-XII grossly intact. ABSENT: motor sensory deficit Psychiatric exam: PRESENT: appropriate affect, normal mood. ABSENT: homicidal ideation, suicidal ideation Skin exam: PRESENT: dry, intact, warm. ABSENT: cyanosis, rash Results Laboratory Results: 12/27/16 08:33 12/30/16 04:50 Impressions: Acute Abdomen Series 12/22/16 11:46 IMPRESSION: Minimal airspace disease in the right upper lobe probably atelectasis. There is bibasilar atelectasis as well. Chest X-Ray 12/24/16 10:33 IMPRESSION: Mild residual or recurrent pneumonia on the right. Qualifiers PATEINT BEING DISCHARGED WITH ANY OF THE FOLLOWING DIAGNOSIS?: No Plan Discharge Plan: Home. Time Spent: Less than 30 Minutes
[2016-12-31 16:59] VITALS: BP 128/87
== END 2016-12-31 17:30 | disposition home health service (06) | DRG 871 ==
LOC: ER 10:48 → UNDOADMIN 15:06 → EH 15:06 → 4N 18:30 → UNDODISIN 12-28 18:39
PROVIDERS: ADMIT Family Medicine; ATTEND Family Medicine
PROC: 3E0F73Z Introduction of Anti-inflammatory into Respiratory Tract, Via Natural or Artificial Opening (ICD-10-PCS; principal; 2016-12-23)
DX: A41.9 Sepsis, unspecified organism (principal); J18.1 Lobar pneumonia, unspecified organism; N30.00 Acute cystitis without hematuria; D68.61 Antiphospholipid syndrome; E46 Unspecified protein-calorie malnutrition; Z68.1 Body mass index [BMI] 19.9 or less, adult; E87.6 Hypokalemia; E86.0 Dehydration; G89.29 Other chronic pain; M32.9 Systemic lupus erythematosus, unspecified; R19.7 Diarrhea, unspecified; G43.909 Migraine, unspecified, not intractable, without status migrainosus; D63.8 Anemia in other chronic diseases classified elsewhere; J45.909 Unspecified asthma, uncomplicated; K21.9 Gastro-esophageal reflux disease without esophagitis; D64.9 Anemia, unspecified; F32.9 Major depressive disorder, single episode, unspecified; B37.3 Candidiasis of vulva and vagina; Z86.718 Personal history of other venous thrombosis and embolism; Z79.899 Other long term (current) drug therapy; Z88.6 Allergy status to analgesic agent; Z88.2 Allergy status to sulfonamides; Z88.8 Allergy status to other drugs, medicaments and biological substances; Z88.3 Allergy status to other anti-infective agents; Z91.013 Allergy to seafood; Z86.711 Personal history of pulmonary embolism
CPT/HCPCS: 36415; 36591; 71010; 74022; 80048; 80053; 81001; 83690; 83735; 84702; 85025; 87040; 87070; 87205; 87493; 89055; 96374; 96375; 99291; J0696; J1170; J1652; J1956; J2405; J2550; J3010; J3480; J3490; J7030; J7512; J7517; S0164

== ENCOUNTER 2017-01-06 23:47 | Emergency (ER) | payer MEDICARE, MEDICAID ==
[2017-01-07] MEDS ORDERED: 1/2 NORMAL SALINE 1,000 ML IV ONE (05:09)
[2017-01-07] MEDS ORDERED: NORMAL SALINE 1000 ML 1,000 ML IV ONE (05:38)
[2017-01-07 05:47] LABS: ABSOLUTE BASOPHILS # (AUTO) 0.1 10^3/uL (0.0-0.2); ABSOLUTE LYMPHOCYTES (AUTO) 1.7 10^3/uL (0.5-4.7); ABSOLUTE MONOCYTES (AUTO) 0.6 10^3/uL (0.1-1.4); ABSOLUTE NEUT (AUTO) 6.3 10^3/uL (1.7-8.2); BASOPHILS % (AUTO) 0.7 % (0-2); EOSINOPHILS % (AUTO) 0.1 % (0-6); HEMATOCRIT 32.3 % (36.0-47.0); HEMOGLOBIN 10.5 g/dL (12.0-15.5); HGB HCT DIFFERENCE -0.8; LYMPHOCYTES % (AUTO) 19.2 % (13-45); MEAN CORPUSCULAR HEMOGLOBIN 30.1 pg (27.0-33.4); MEAN CORPUSCULAR HGB CONC 32.6 g/dL (32.0-36.0); MEAN CORPUSCULAR VOLUME 92 fl (80-97); MONOCYTES % (AUTO) 7.4 % (3-13); RED BLOOD COUNT 3.49 10^6/uL (3.72-5.28); RED CELL DISTRIBUTION WIDTH 14.9 % (11.5-14.0); SEGMENTED NEUTROPHILS % (AUTO) 72.6 % (42-78); WHITE BLOOD COUNT 8.7 10^3/uL (4.0-10.5)
[2017-01-07 05:58] LABS: ALANINE AMINOTRANSFERASE 31 U/L (9-52); ALBUMIN 2.7 g/dL (3.5-5.0); ALKALINE PHOSPHATASE 215 U/L (38-126); ANION GAP 13 (5-19); ASPARTATE AMINO TRANSFERASE 35 U/L (14-36); BILIRUBIN,DIRECT 0.3 mg/dL (0.0-0.4); BILIRUBIN,TOTAL 0.4 mg/dL (0.2-1.3); BLOOD UREA NITROGEN 9 mg/dL (7-20); CALCIUM 8.4 mg/dL (8.4-10.2); CARBON DIOXIDE 24 mmol/L (22-30); CHLORIDE 102 mmol/L (98-107); CREATININE RESULT 0.46 mg/dL (0.52-1.25); GLUCOSE 98 mg/dL (75-110); MAGNESIUM 1.9 mg/dL (1.6-2.3); POTASSIUM 4.5 mmol/L (3.6-5.0); SODIUM 139.4 mmol/L (137-145)
[2017-01-07 06:03] LABS: ALCOHOL < 10 mg/dL (NONE DETECTED)
[2017-01-07] MEDS ORDERED: ONDANSETRON HCL INJ/PF 4 MG/2 ML SDV IV ONE (06:34)
[2017-01-07] MEDS ORDERED: OXYCODONE-ACETAMINOPHEN 5-325 MG TABLET PO ONE (06:34)
--- NOTE | 2017-01-07 06:34 | ER Document Report ---
ED General - General Chief Complaint: Probable Seizure Stated Complaint: FOOT PAIN Mode of Arrival: Medic Information source: Patient, Dr. Office Notes: 21-year-old female history seizure disorder presents with complaints of seizure episode. Patient states she was planning to come to the emergency department either way and she feels dehydrated. But before she got a ride patient had a seizure. Patient notes she has chronic seizures notes she has not been able to hold down her medications denies any fevers or chills , admits to right ankle pain TRAVEL OUTSIDE OF THE [place] IN LAST 30 DAYS: No - HPI Onset: Just prior to arrival Onset/Duration: Sudden Quality of pain: Achy Severity: Mild Pain Level: 1 Associated symptoms: Body/muscle aches Exacerbated by: Denies Relieved by: Denies Similar symptoms previously: Yes Recently seen / treated by doctor: Yes - Related Data Allergies/Adverse Reactions: shellfish derived Allergy (Severe, Verified 01/07/17 00:27) Anaphylaxis ketorolac tromethamine [From Toradol] Allergy (Intermediate, Verified 01/07/17 00:27) Hives morphine [Morphine] Allergy (Intermediate, Verified 01/07/17 00:27) Hives sulfamethoxazole [From Bactrim] Allergy (Unknown, Verified 01/07/17 00:27) Pruritis trimethoprim [From Bactrim] Allergy (Unknown, Verified 01/07/17 00:27) Pruritis belimumab [From Benlysta] Allergy (Verified 01/07/17 00:27) rash Past Medical History - Social History Smoking Status: Never Smoker Cigarette use (# per day): No Chew tobacco use (# tins/day): No Smoking Education Provided: No Frequency of alcohol use: None Drug Abuse: None Family History: Reviewed & Not Pertinent, Other - Lupus-mother Patient has suicidal ideation: No Patient has homicidal ideation: No - Past Medical History Cardiac Medical History: Reports: Hx DVT - INF. VENA CAVA, Hx Hypertension - MEDS X 2 YRS /usually low, Hx Pulmonary Embolism Denies: Hx Coronary Artery Disease, Hx Heart Attack Pulmonary Medical History: Reports: Hx Asthma - Pediatric, Hx Pneumonia Denies: Hx Bronchitis, Hx COPD, Hx Tuberculosis Neurological Medical History: Reports: Hx Migraine, Hx Seizures. Denies: Hx Cerebrovascular Accident Renal/ Medical History: Denies: Hx Peritoneal Dialysis GI Medical History: Reports: Hx Gastritis, Hx Gastroesophageal Reflux Disease, Hx Ulcer, Hx Endoscopy Musculoskeltal Medical History: Reports Hx Arthritis - Lupus Skin Medical History: Reports Hx Cellulitis Psychiatric Medical History: Reports: Hx Anxiety, Hx Depression Surgical Hx: Other Past Surgical History: Reports: Hx Abdominal Surgery - PEG tube, Other - PEG placement, Port-A-Cath. Denies: Hx Hysterectomy - Immunizations Immunizations up to date: Yes Hx Diphtheria, Pertussis, Tetanus Vaccination: Yes Hx Pneumococcal Vaccination: 10/04/14 Review of Systems - Review of Systems Notes: REVIEW OF SYSTEMS: CONSTITUTIONAL : Denies fever, chills, or sweats. Denies recent illness. EENT: Denies eye, ear, throat, or mouth pain or symptoms. Denies nasal or sinus congestion or discharge. Denies throat, tongue, or mouth swelling or difficulty swallowing. CARDIOVASCULAR: Denies chest pain. Denies palpitations or racing or irregular heart beat. Denies ankle edema. RESPIRATORY: Denies cough, cold, or chest congestion. Denies shortness of breath, difficulty breathing, or wheezing. GASTROINTESTINAL: Admits nausea vomiting GENITOURINARY: Denies difficulty urinating, painful urination, burning, frequency, blood in urine, or discharge. FEMALE GENITOURINARY: Denies vaginal bleeding, heavy or abnormal periods, irregular periods. Denies vaginal discharge or odor. MUSCULOSKELETAL: Right ankle pain SKIN: Denies rash, lesions or sores. HEMATOLOGIC : Denies easy bruising or bleeding. LYMPHATIC: Denies swollen, enlarged glands. NEUROLOGICAL: Admits to seizure PSYCHIATRIC: Denies anxiety or stress. Denies depression, suicidal ideation, or homicidal ideation. ALL OTHER SYSTEMS REVIEWED AND NEGATIVE. Dictation was performed using [employer] voice recognition software PHYSICAL EXAMINATION: GENERAL: Well-appearing, well-nourished and in no acute distress. HEAD: Atraumatic, normocephalic. EYES: Pupils equal round and reactive to light, extraocular movements intact, conjunctiva are normal. ENT: Nares patent, oropharynx clear without exudates. Moist mucous membranes. NECK: Normal range of motion, supple without lymphadenopathy LUNGS: Breath sounds clear to auscultation bilaterally and equal. No wheezes rales or rhonchi. HEART: Regular rate and rhythm without murmurs ABDOMEN: Soft, nontender, nondistended abdomen. No guarding, no rebound. No masses appreciated. Female : deferred Musculoskeletal: Normal range of motion, no pitting or edema. No cyanosis. NEUROLOGICAL: Cranial nerves grossly intact. Normal speech, normal gait. Normal sensory, motor exams PSYCH: Normal mood, normal affect. SKIN: Warm, Dry, normal turgor, no rashes or lesions noted. Physical Exam - Vital signs Vitals: Temp Pulse Resp BP Pulse Ox 98.1 F 80 16 82/63 L 98 01/07/17 00:27 01/07/17 00:27 01/07/17 00:27 01/07/17 00:27 01/07/17 00:27 Course - Re-evaluation Re-evalutation: 01/07/17 15:37 On my physical examination patient is in no distress playing on her cell phone. I do not believe there is any life-threatening issues. Lab work noted no significant abnormality. Patient x-ray noted no fracture. I did not believe any further imaging is required. Patient was able to ambulate on her way to be discharged I do not believe patient is dehydrated, After performing a Medical Screening Examination, I estimate there is LOW risk for ACUTE APPENDICITIS, BOWEL OBSTRUCTION, ACUTE CHOLECYSTITIS, PERFORATED DIVERTICULITIS, INCARCERATED HERNIA, PANCREATITIS, PELVIC INFLAMMATORY DISEASE, PERFORATED ULCER, ECTOPIC , or TUBO-OVARIAN ABSCESS, thus I consider the discharge disposition reasonable. Also, there is no evidence or peritonitis , sepsis, or toxicity. The patient and I have discussed the diagnosis and risks , and we agree with discharging home with close follow-up with the understanding that symptoms and presentations can change. We also discussed returning to the Emergency Department immediately if new or worsening symptoms occur. We have discussed the symptoms which are most concerning (e.g., bloody stool, fever, changing or worsening pain, vomiting) that necessitate immediate return. - Vital Signs Vital signs: Temp Pulse Resp BP Pulse Ox 98.0 F 70 23 H 106/90 H 98 01/07/17 03:35 01/07/17 03:35 01/07/17 07:01 01/07/17 07:01 01/07/17 07:01 - Laboratory Result Diagrams: 01/07/17 05:25 01/07/17 05:25 Laboratory results interpreted by me: 01/07/17 01/07/17 05:25 05:25 RBC 3.49 L Hgb 10.5 L Hct 32.3 L RDW 14.9 H Creatinine 0.46 L Alkaline Phosphatase 215 H Albumin 2.7 L - Diagnostic Test Radiology reviewed: Image reviewed, Reports reviewed Discharge - Discharge Clinical Impression: Seizure Nausea and vomiting Qualifiers: Vomiting type: unspecified Vomiting Intractability: non-intractable Qualified Code(s): R11.2 - Nausea with vomiting, unspecified Ankle pain Qualifiers: Laterality: right Chronicity: acute Qualified Code(s): M25.571 - Pain in right ankle and joints of right foot Condition: Stable Disposition: HOME, SELF-CARE Instructions: Eusebio Wrap ([facility]), Intravenous (IV) Fluids ([facility]), Vomiting ([facility]) Prescriptions: Promethazine HCl 25 mg RC Q6 #14 supp.rect Referrals: KIKA LIU MD [Primary Care Provider] - Follow up tomorrow
[2017-01-07] MEDS ORDERED: LEVETIRACETAM 500 MG TABLET PO ONE (06:35)
[2017-01-07 07:11] VITALS: BP 106/90
--- NOTE | 2017-01-07 15:38 | EKG REPORT ---
SEVERITY:- ABNORMAL ECG - SINUS RHYTHM SHORT MI INTERVAL, ACCELERATED AV CONDUCTION PROBABLE LEFT VENTRICULAR HYPERTROPHY BORDERLINE PROLONGED QT INTERVAL : Confirmed by: Citlalli Falk MD 07-Jan-2017 15:36:22
== END 2017-01-07 07:34 | disposition home or self-care (01) ==
LOC: ER 23:47
DX: M25.571 Pain in right ankle and joints of right foot (principal); R11.2 Nausea with vomiting, unspecified; G40.802 Other epilepsy, not intractable, without status epilepticus; I10 Essential (primary) hypertension; Z88.6 Allergy status to analgesic agent; Z88.2 Allergy status to sulfonamides; Z91.013 Allergy to seafood; Z86.718 Personal history of other venous thrombosis and embolism; Z86.711 Personal history of pulmonary embolism; Z93.1 Gastrostomy status
CPT/HCPCS: 93005; 99283; 36415; 80177; 82962; 80307; 83735; 84703; 85025; 80053; 73610; 93010; A9270 ×2; J2405; J7030

== ENCOUNTER 2017-01-31 21:25 | Emergency (ER) | payer MEDICARE, MEDICAID ==
[2017-01-31] MEDS ORDERED: NORMAL SALINE 1000 ML 1,000 ML IV PRN (22:06)
[2017-01-31] MEDS ORDERED: HYDROMORPHONE HCL INJ/PF 2 MG/ML AMPULE IV ONE ×2 (22:12→23:55)
[2017-01-31] MEDS ORDERED: ONDANSETRON HCL INJ/PF 4 MG/2 ML SDV IV ONE (22:12)
--- NOTE | 2017-01-31 22:13 | ER Document Report ---
ED Cardiac - General Chief Complaint: Chest Pain Stated Complaint: CHEST PAIN Time seen by provider: 22:13 Mode of Arrival: Ambulatory Information source: Patient TRAVEL OUTSIDE OF THE [place] IN LAST 30 DAYS: No - HPI Patient complains to provider of: Chest pain, Shortness of breath Was the onset of pain: Gradual Is the pain a: Chronic problem Chest pain location: Other - Right anterior chest wall Quality of pain: Achy Severity now: Moderate Severity at worst: Moderate Pain level currently: 3 Chest pain precipitating factors: At Rest Associated symptoms: Shortness of breath Exacerbated by: Coughing, Deep breaths Relieved by: Nothing Similar symptoms previously: Yes Notes: Patient is a 21-year-old female with multiple medical problems who presents to the emergency room complaining of right-sided chest pain with shortness of breath, cough productive of yellowish phlegm, symptoms started yesterday evening , chest pain worsens with deep breathing and coughing, she denies a fever, she does report that her feeding tube was replaced recently on January 18, she is a history of pulmonary emboli and takes Arixtra 7.5 mg twice a day, she also complains of some nausea - Related Data Allergies/Adverse Reactions: shellfish derived Allergy (Severe, Verified 01/31/17 21:33) Anaphylaxis ketorolac tromethamine [From Toradol] Allergy (Intermediate, Verified 01/31/17 21:33) Hives morphine [Morphine] Allergy (Intermediate, Verified 01/31/17 21:33) Hives sulfamethoxazole [From Bactrim] Allergy (Unknown, Verified 01/31/17 21:33) Pruritis trimethoprim [From Bactrim] Allergy (Unknown, Verified 01/31/17 21:33) Pruritis belimumab [From Benlysta] Allergy (Verified 01/31/17 21:33) rash Past Medical History - General Information source: Patient - Social History Smoking Status: Never Smoker Family History: Reviewed & Not Pertinent, Other - Lupus-mother - Past Medical History Cardiac Medical History: Reports: Hx DVT - INF. VENA CAVA, Hx Hypertension - MEDS X 2 YRS /usually low, Hx Pulmonary Embolism Denies: Hx Coronary Artery Disease, Hx Heart Attack Pulmonary Medical History: Reports: Hx Asthma - Pediatric, Hx Pneumonia Denies: Hx Bronchitis, Hx COPD, Hx Tuberculosis Neurological Medical History: Reports: Hx Migraine, Hx Seizures. Denies: Hx Cerebrovascular Accident Renal/ Medical History: Denies: Hx Peritoneal Dialysis GI Medical History: Reports: Hx Gastritis, Hx Gastroesophageal Reflux Disease, Hx Ulcer, Hx Endoscopy Musculoskeltal Medical History: Reports Hx Arthritis - Lupus Skin Medical History: Reports Hx Cellulitis Psychiatric Medical History: Reports: Hx Anxiety, Hx Depression Past Surgical History: Reports: Hx Abdominal Surgery - PEG tube, Other - PEG placement, Port-A-Cath. Denies: Hx Hysterectomy - Immunizations Immunizations up to date: Yes Hx Diphtheria, Pertussis, Tetanus Vaccination: Yes Hx Pneumococcal Vaccination: 10/04/14 Review of Systems - Review of Systems Constitutional: No symptoms reported EENT: No symptoms reported Cardiovascular: See HPI Respiratory: See HPI Gastrointestinal: See HPI Genitourinary: No symptoms reported Female Genitourinary: No symptoms reported Musculoskeletal: Back pain Skin: No symptoms reported Hematologic/Lymphatic: No symptoms reported Neurological/Psychological: No symptoms reported -: Yes All other systems reviewed and negative Physical Exam - Vital signs Vitals: Temp Pulse BP Pulse Ox 98.7 F 147 H 158/118 H 100 01/31/17 21:36 01/31/17 21:36 01/31/17 21:36 01/31/17 21:36 Interpretation: Normal - General General appearance: Alert In distress: None Notes: Chronically ill-appearing - HEENT Head: Normocephalic, Atraumatic Eyes: Normal Pupils: PERRL - Respiratory Respiratory status: No respiratory distress Chest status: Tender - Tender to palpate in the right anterior chest wall Breath sounds: Normal Chest palpation: Normal Notes: Port-A-Cath in left anterior chest wall - Cardiovascular Rhythm: Regular Heart sounds: Normal auscultation Murmur: No - Abdominal Inspection: Other - Feeding tube in place Distension: Distended - Mild Bowel sounds: Normal Tenderness: Tender - Mild diffuse tenderness Organomegaly: No organomegaly - Back Back: Normal, Nontender - Extremities General upper extremity: Normal inspection, Nontender, Normal color, Normal ROM , Normal temperature General lower extremity: Normal inspection, Nontender, Normal color, Normal ROM , Normal temperature. No: Darby's sign - Neurological Neuro grossly intact: Yes Cognition: Normal Orientation: AAOx4 Shawn Coma Scale Eye Opening: Spontaneous Lincoln Coma Scale Verbal: Oriented Lincoln Coma Scale Motor: Obeys Commands Shawn Coma Scale Total: 15 Speech: Normal Motor strength normal: LUE, RUE, LLE, RLE Sensory: Normal - Psychological Associated symptoms: Normal affect, Normal mood - Skin Skin Temperature: Warm Skin Moisture: Dry Skin Color: Normal Course - Re-evaluation Re-evalutation: 02/01/17 03:11 Patient reports feeling much better and ready to go home, lab and imaging findings were discussed with her at bedside, vital signs are significantly improved, patient will be discharged with instructions for follow-up and advised to return if symptoms worsen, patient acknowledges understanding and agreement with this plan - Vital Signs Vital signs: Temp Pulse Resp BP Pulse Ox 98.7 F 147 H 18 158/125 H 100 01/31/17 21:36 01/31/17 21:36 02/01/17 02:41 02/01/17 02:41 02/01/17 02:25 - Laboratory Result Diagrams: 01/31/17 22:00 01/31/17 22:00 Laboratory results interpreted by me: 01/31/17 01/31/17 22:00 22:00 WBC 11.2 H RBC 3.51 L Hgb 10.7 L Hct 32.5 L RDW 14.2 H Seg Neutrophils % 81.7 H Lymphocytes % 8.4 L Absolute Neutrophils 9.1 H BUN 6 L Creatinine 0.37 L AST 74 H ALT 54 H Alkaline Phosphatase 194 H Creatine Kinase < 20 L Total Protein 9.1 H Albumin 3.2 L - Diagnostic Test Radiology reviewed: Image reviewed, Reports reviewed - EKG Interpretation by Me EKG shows normal: Sinus rhythm Rate: Tachycardia When compared to previous EKG there are: No significant change Discharge - Discharge Clinical Impression: Viral upper respiratory illness Chronic pain Qualifiers: Chronic pain type: chronic pain syndrome Qualified Code(s): G89.4 - Chronic pain syndrome Condition: Stable Disposition: HOME, SELF-CARE Instructions: Chest Wall Pain ([facility]), Upper Respiratory Illness ([facility]) Additional Instructions: Follow up with your primary care provider in one to 2 days. Return to the emergency room immediately if symptoms worsen or any additional concerns. Referrals: KIKA LIU MD [Primary Care Provider] - Follow up as needed
[2017-01-31 22:23] LABS: ABSOLUTE BASOPHILS # (AUTO) 0.1 10^3/uL (0.0-0.2); ABSOLUTE LYMPHOCYTES (AUTO) 0.9 10^3/uL (0.5-4.7); ABSOLUTE NEUT (AUTO) 9.1 10^3/uL (1.7-8.2); BASOPHILS % (AUTO) 0.6 % (0-2); EOSINOPHILS % (AUTO) 0.1 % (0-6); HEMATOCRIT 32.5 % (36.0-47.0); HEMOGLOBIN 10.7 g/dL (12.0-15.5); HGB HCT DIFFERENCE -0.4; LYMPHOCYTES % (AUTO) 8.4 % (13-45); MEAN CORPUSCULAR HEMOGLOBIN 30.5 pg (27.0-33.4); MEAN CORPUSCULAR HGB CONC 32.8 g/dL (32.0-36.0); MEAN CORPUSCULAR VOLUME 93 fl (80-97); MONOCYTES % (AUTO) 9.2 % (3-13); RED BLOOD COUNT 3.51 10^6/uL (3.72-5.28); RED CELL DISTRIBUTION WIDTH 14.2 % (11.5-14.0); SEGMENTED NEUTROPHILS % (AUTO) 81.7 % (42-78); WHITE BLOOD COUNT 11.2 10^3/uL (4.0-10.5)
[2017-01-31 22:40] LABS: ALANINE AMINOTRANSFERASE 54 U/L (9-52); ALBUMIN 3.2 g/dL (3.5-5.0); ALKALINE PHOSPHATASE 194 U/L (38-126); ANION GAP 13 (5-19); ASPARTATE AMINO TRANSFERASE 74 U/L (14-36); BILIRUBIN,DIRECT 0.3 mg/dL (0.0-0.4); BILIRUBIN,TOTAL 0.4 mg/dL (0.2-1.3); BLOOD UREA NITROGEN 6 mg/dL (7-20); CARBON DIOXIDE 25 mmol/L (22-30); CHLORIDE 105 mmol/L (98-107); CREATININE RESULT 0.37 mg/dL (0.52-1.25); GLUCOSE 106 mg/dL (75-110); POTASSIUM 4.1 mmol/L (3.6-5.0); SODIUM 142.5 mmol/L (137-145); TOTAL PROTEIN 9.1 g/dL (6.3-8.2)
[2017-01-31] MEDS: NORMAL SALINE 1000 ML 1,000 ML IV PRN (22:40)
[2017-01-31 22:42] LABS: CREATINE KINASE < 20 U/L (30-135)
--- NOTE | 2017-01-31 22:51 | EKG REPORT ---
SEVERITY:- ABNORMAL ECG - SINUS TACHYCARDIA PROBABLE LVH WITH SECONDARY REPOL ABNRM : Confirmed by: Homer Edmonds 31-Jan-2017 22:50:36
[2017-01-31 22:55] LABS: CREATINE KINASE MB < 0.22 ng/mL (<4.55); TROPONIN I < 0.012 ng/mL
[2017-02-01] MEDS ORDERED: NORMAL SALINE 1000 ML 1,000 ML IV PRN (01:07)
[2017-02-01] MEDS ORDERED: HYDROMORPHONE HCL INJ/PF 2 MG/ML AMPULE IV ONE (01:14)
[2017-02-01] MEDS: NORMAL SALINE 1000 ML 1,000 ML IV PRN (02:24)
[2017-02-01 03:19] VITALS: BP 163/130
== END 2017-02-01 04:26 | disposition home or self-care (01) ==
LOC: ER 21:25
DX: J06.9 Acute upper respiratory infection, unspecified (principal); G89.4 Chronic pain syndrome; R07.9 Chest pain, unspecified; R06.02 Shortness of breath; I10 Essential (primary) hypertension; Z88.3 Allergy status to other anti-infective agents; Z86.718 Personal history of other venous thrombosis and embolism; Z86.711 Personal history of pulmonary embolism
CPT/HCPCS: 93005; 96376; 99285; 96361; 96374; 96375; 36415; 82553; 82550; 85025; 80053; 84484; 71020; 74000; 93010; J1170 ×2; J2405; J7030 ×2

== ENCOUNTER 2017-03-03 15:32 | Inpatient (IN) | payer MEDICARE, MEDICAID ==
--- NOTE | 2017-03-03 16:16 | ER Document Report ---
ED Medical Screen (RME) - General Chief Complaint: Pain All Over Stated Complaint: BODY ACHES Time Seen by Provider: 03/03/17 16:11 Notes: 21 yo female with hx/o Lupus c/o pain to abdomen, arms, legs, back and chest x 5 days. pt had feeding tube placed January 18. c/o pain around feeding tube, leakage from feeding tube and foul odor. + n/v after feeding. + fever + nocturnal sweats. chest pain is substernal and under right breast with deep breathing. pt is tachy @ 165 pt has port, labs will be drawn at bedside TRAVEL OUTSIDE OF THE [place] IN LAST 30 DAYS: No - Related Data Allergies/Adverse Reactions: shellfish derived Allergy (Severe, Verified 01/31/17 21:33) Anaphylaxis ketorolac tromethamine [From Toradol] Allergy (Intermediate, Verified 01/31/17 21:33) Hives morphine [Morphine] Allergy (Intermediate, Verified 01/31/17 21:33) Hives sulfamethoxazole [From Bactrim] Allergy (Unknown, Verified 01/31/17 21:33) Pruritis trimethoprim [From Bactrim] Allergy (Unknown, Verified 01/31/17 21:33) Pruritis belimumab [From Benlysta] Allergy (Verified 01/31/17 21:33) rash Past Medical History - Past Medical History Cardiac Medical History: Reports: Hx DVT - INF. VENA CAVA, Hx Hypertension - MEDS X 2 YRS /usually low, Hx Pulmonary Embolism Denies: Hx Coronary Artery Disease, Hx Heart Attack Pulmonary Medical History: Reports: Hx Asthma - Pediatric, Hx Pneumonia Denies: Hx Bronchitis, Hx COPD, Hx Tuberculosis Neurological Medical History: Reports: Hx Migraine, Hx Seizures. Denies: Hx Cerebrovascular Accident Renal/ Medical History: Denies: Hx Peritoneal Dialysis GI Medical History: Reports: Hx Gastritis, Hx Gastroesophageal Reflux Disease, Hx Ulcer, Hx Endoscopy Musculoskeltal Medical History: Reports Hx Arthritis - Lupus Skin Medical History: Reports Hx Cellulitis Psychiatric Medical History: Reports: Hx Anxiety, Hx Depression Past Surgical History: Reports: Hx Abdominal Surgery - PEG tube, Other - PEG placement, Port-A-Cath. Denies: Hx Hysterectomy - Immunizations Immunizations up to date: Yes Hx Diphtheria, Pertussis, Tetanus Vaccination: Yes Physical Exam - Vital signs Vitals: Temp Pulse Resp BP Pulse Ox 99.7 F 167 H 28 H 148/113 H 98 03/03/17 15:55 03/03/17 15:55 03/03/17 15:55 03/03/17 15:55 03/03/17 15:55 Course - Vital Signs Vital signs: Temp Pulse Resp BP Pulse Ox 99.7 F 167 H 28 H 148/113 H 98 03/03/17 15:55 03/03/17 15:55 03/03/17 15:55 03/03/17 15:55 03/03/17 15:55
[2017-03-03] MEDS ORDERED: NORMAL SALINE 1000 ML 1,000 ML IV PRN (16:56)
--- NOTE | 2017-03-03 17:16 | RADIOLOGY REPORT (SQ) ---
EXAM DESCRIPTION: ABDOMEN 2 VIEWS COMPLETED DATE/TIME: 03/03/2017 4:53 pm REASON FOR STUDY: abdominal pain COMPARISON: None. NUMBER OF VIEWS: Two views. TECHNIQUE: Supine and erect radiographic images of the abdomen acquired. LIMITATIONS: None. FINDINGS: FREE AIR: None. No abnormal gas collections. LUNG BASES: Clear. BOWEL GAS PATTERN: Nonobstructive pattern. Considerable stool is present. CALCIFICATIONS: No suspicious calcifications. SOFT TISSUES: No gross mass or suggestion of organomegaly. HARDWARE: Gastrostomy tube. Surgical clips. BONES: No acute fracture. No worrisome bone lesions. OTHER: No other significant finding. IMPRESSION: Possible constipation. TECHNICAL DOCUMENTATION: JOB ID: [id number] [employer]- All Rights Reserved
[2017-03-03 17:41] LABS: ABSOLUTE BASOPHILS # (AUTO) 0.1 10^3/uL (0.0-0.2); ABSOLUTE EOSINOPHILS # (AUTO) 0.1 10^3/uL (0.0-0.6); ABSOLUTE LYMPHOCYTES (AUTO) 1.4 10^3/uL (0.5-4.7); ABSOLUTE MONOCYTES (AUTO) 1.6 10^3/uL (0.1-1.4); ABSOLUTE NEUT (AUTO) 8.9 10^3/uL (1.7-8.2); BASOPHILS % (AUTO) 0.6 % (0-2); EOSINOPHILS % (AUTO) 0.5 % (0-6); HEMATOCRIT 34.2 % (36.0-47.0); HGB HCT DIFFERENCE -1.2; LYMPHOCYTES % (AUTO) 11.8 % (13-45); MEAN CORPUSCULAR VOLUME 94 fl (80-97); MONOCYTES % (AUTO) 13.2 % (3-13); RED BLOOD COUNT 3.64 10^6/uL (3.72-5.28); RED CELL DISTRIBUTION WIDTH 14.1 % (11.5-14.0); SEGMENTED NEUTROPHILS % (AUTO) 73.9 % (42-78); WHITE BLOOD COUNT 12.1 10^3/uL (4.0-10.5)
[2017-03-03] MEDS ORDERED: HYDROMORPHONE HCL INJ/PF 2 MG/ML AMPULE IV ONE ×2 (17:42→20:46)
[2017-03-03] MEDS ORDERED: ONDANSETRON 4 MG TAB.RAPDIS PO ONE (17:43)
[2017-03-03] MEDS ORDERED: PIPERACILLIN/TAZOBACTAM 3.375 GM VIAL IV ONE (17:44)
[2017-03-03] MEDS ORDERED: VANCOMYCIN HCL INJ 1000 MG VIAL IV ONE (17:44)
[2017-03-03 18:12] LABS: ALANINE AMINOTRANSFERASE 15 U/L (9-52); ALBUMIN 3.5 g/dL (3.5-5.0); ALKALINE PHOSPHATASE 143 U/L (38-126); ANION GAP 11 (5-19); ASPARTATE AMINO TRANSFERASE 28 U/L (14-36); BILIRUBIN,DIRECT 0.3 mg/dL (0.0-0.4); BILIRUBIN,TOTAL 0.4 mg/dL (0.2-1.3); BLOOD UREA NITROGEN 11 mg/dL (7-20); CALCIUM 9.2 mg/dL (8.4-10.2); CARBON DIOXIDE 26 mmol/L (22-30); CHLORIDE 104 mmol/L (98-107); GLUCOSE 91 mg/dL (75-110); LIPASE 30.9 U/L (23-300); POTASSIUM 4.2 mmol/L (3.6-5.0); SODIUM 140.5 mmol/L (137-145); TOTAL PROTEIN 10.4 g/dL (6.3-8.2)
[2017-03-03 18:16] LABS: CREATINE KINASE < 20 U/L (30-135)
--- NOTE | 2017-03-03 19:55 | RADIOLOGY REPORT (SQ) ---
EXAM DESCRIPTION: CTA CHEST COMPLETED DATE/TIME: 03/03/2017 7:34 pm REASON FOR STUDY: lupus, SOB, chest pain, HR 165 COMPARISON: 08/25/2016 TECHNIQUE: CT scan of the chest performed using helical scanning technique with dynamic intravenous contrast injection. Images reviewed with lung, soft tissue and bone windows. Reconstructed coronal and sagittal MPR images reviewed. Additional 3 dimensional post-processing performed to develop Maximal Intensity Projection images (OR P). All images stored on PACS. All CT scanners at this facility use dose modulation, iterative reconstruction, and/or weight based d osing when appropriate to reduce radiation dose to as low as reasonably achievable (ALARA). [facility]: Dose Right [facility]: CareDose [facility]: Dose Right [facility]: Teradose 4D [facility]: [employer] CONTRAST TYPE AND DOSE: 55 mL Isovue 370 RENAL FUNCTION: Creatinine 0.5 RADIATION DOSE: 30.85 mGy. LIMITATIONS: None. FINDINGS: LUNGS AND PLEURA: No consolidations or pleural effusions are identified. A small pleural- based density is identified in the right upper lung field laterally best seen on image number 29 whic h was not present on the previous study. The possibility of a small mass cannot be excluded. There are linear densities in the right lung base most consistent with atelectatic changes. AORTA AND GREAT VESSELS: No aneurysm or dissection. HEART: No pericardial effusion. PULMONARY ARTERIES: No emboli visualized in the main pulmonary arteries or the segmental branches. HILAR AND MEDIASTINAL STRUCTURES: No identified masses or abnormal nodes. HARDWARE: None in the chest. UPPER ABDOMEN: There is fatty infiltration of the liver. The liver appears enlarged. Clinical corre lation is recommended THYROID AND OTHER SOFT TISSUES: No masses. No adenopathy. BONES: There is mild compression of a couple of the thoracic vertebra unchanged from the previous milind dy. 3D MIPS: Confirm above findings. OTHER: No other significant finding. IMPRESSION: No evidence for pulmonary embolic disease. No consolidations or pleural effusions are i dentified. Other findings as noted above TECHNICAL DOCUMENTATION: JOB ID: [id number] Quality ID # [id number]: Final reports with documentation of one or more dose reduction techniques (e.g., Au tomated exposure control, adjustment of the mA and/or kV according to patient size, use of iterative reconstruction technique) 2010 [employer]- All Rights Reserved
[2017-03-03 20:07] LABS: APPEARANCE,URINE CLEAR; BILIRUBIN,URINE NEGATIVE (NEGATIVE); GLUCOSE, URINE NEGATIVE (NEGATIVE); KETONES,URINE NEGATIVE (NEGATIVE); LEUKOCYTE ESTERASE,URINE MODERATE (NEGATIVE); NITRITE,URINE NEGATIVE (NEGATIVE); PROTEIN,URINE NEGATIVE (NEGATIVE); UROBILINOGEN,URINE NEGATIVE mg/dL (<2.0)
--- NOTE | 2017-03-03 20:34 | ER Document Report ---
ED General - General Chief Complaint: Pain All Over Stated Complaint: BODY ACHES Time Seen by Provider: 03/03/17 16:11 Notes: The patient is a 21-year-old female, past medical history lupus, prior PEs (on Arixtra), feeding tube due to weight loss and reflux, presents with subjective fevers, nausea, vomiting x1 time, chest pain and shortness of breath for the past day. She noticed redness and a small amount of discharge around her G-tube over the past day. She think she is also having a lupus flare. Also, she noticed swelling of her left labia over the past few days. She does not have concern for STDs. She denies flank pain, headache, neck stiffness, diarrhea or constipation TRAVEL OUTSIDE OF THE [place] IN LAST 30 DAYS: No - Related Data Allergies/Adverse Reactions: shellfish derived Allergy (Severe, Verified 01/31/17 21:33) Anaphylaxis ketorolac tromethamine [From Toradol] Allergy (Intermediate, Verified 01/31/17 21:33) Hives morphine [Morphine] Allergy (Intermediate, Verified 01/31/17 21:33) Hives sulfamethoxazole [From Bactrim] Allergy (Unknown, Verified 01/31/17 21:33) Pruritis trimethoprim [From Bactrim] Allergy (Unknown, Verified 01/31/17 21:33) Pruritis belimumab [From Benlysta] Allergy (Verified 01/31/17 21:33) rash Past Medical History - General Information source: Patient - Social History Smoking Status: Never Smoker Family History: Reviewed & Not Pertinent, Other - Lupus-mother Patient has suicidal ideation: No Patient has homicidal ideation: No - Past Medical History Cardiac Medical History: Reports: Hx DVT - INF. VENA CAVA, Hx Hypertension - MEDS X 2 YRS /usually low, Hx Pulmonary Embolism Denies: Hx Coronary Artery Disease, Hx Heart Attack Pulmonary Medical History: Reports: Hx Asthma - Pediatric, Hx Pneumonia Denies: Hx Bronchitis, Hx COPD, Hx Tuberculosis Neurological Medical History: Reports: Hx Migraine, Hx Seizures. Denies: Hx Cerebrovascular Accident Renal/ Medical History: Denies: Hx Peritoneal Dialysis GI Medical History: Reports: Hx Gastritis, Hx Gastroesophageal Reflux Disease, Hx Ulcer, Hx Endoscopy Musculoskeltal Medical History: Reports Hx Arthritis - Lupus Skin Medical History: Reports Hx Cellulitis Psychiatric Medical History: Reports: Hx Anxiety, Hx Depression Past Surgical History: Reports: Hx Abdominal Surgery - PEG tube, Other - PEG placement, Port-A-Cath. Denies: Hx Hysterectomy - Immunizations Immunizations up to date: Yes Hx Diphtheria, Pertussis, Tetanus Vaccination: Yes Hx Pneumococcal Vaccination: 10/04/14 Review of Systems - Review of Systems Notes: REVIEW OF SYSTEMS: CONSTITUTIONAL: -fevers, -chills EENT: -eye pain, -difficulty swallowing, -nasal congestion CARDIOVASCULAR: +chest pain, -syncope. RESPIRATORY: -cough, +SOB GASTROINTESTINAL: -abdominal pain, +nausea, +vomiting, -diarrhea GENITOURINARY: +dysuria, -hematuria MUSCULOSKELETAL: -back pain, -neck pain SKIN: +redness around G-tube HEMATOLOGIC: -easy bruising or bleeding. LYMPHATIC: -swollen, enlarged glands. NEUROLOGICAL: -altered mental status or loss of consciousness, -headache, - neurologic symptoms PSYCHIATRIC: -anxiety, -depression. ALL OTHER SYSTEMS REVIEWED AND NEGATIVE. Physical Exam - Vital signs Vitals: Temp Pulse Resp BP Pulse Ox 99.7 F 167 H 28 H 148/113 H 98 03/03/17 15:55 03/03/17 15:55 03/03/17 15:55 03/03/17 15:55 03/03/17 15:55 - Notes Notes: PHYSICAL EXAMINATION: GENERAL: Well-appearing, well-nourished and in no acute distress. HEAD: Atraumatic, normocephalic. EYES: Pupils equal round and reactive to light, extraocular movements intact, sclera anicteric, conjunctiva are normal. ENT: nares patent, oropharynx clear without exudates. Moist mucous membranes. NECK: Normal range of motion, supple without lymphadenopathy LUNGS: Breath sounds clear to auscultation bilaterally and equal. Tachypnea HEART: Tachycardic, regular rhythm ABDOMEN: Soft, nontender, normoactive bowel sounds. G-tube in place with surrounding erythema and small amount of discharge from around tube. No guarding , no rebound. No masses appreciated. : Mild erythema and swelling of left labia, no abscess, no vaginal discharge, no crepitus EXTREMITIES: Normal range of motion, no pitting or edema. No cyanosis. NEUROLOGICAL: Cranial nerves grossly intact. Normal speech, normal gait. Normal sensory and motor exams. PSYCH: Normal mood, normal affect. SKIN: Erythema around G-tube. Course - Re-evaluation Re-evalutation: With tachycardia, shortness of breath, tachypnea and history of lupus, CTA was ordered due to high risk for PE. CTA did not show any evidence of PE. She continues to have tachycardia despite 2 L of fluids with a leukocytosis. Lactate is 1.1. Source of her sepsis is most likely from the abdominal wall cellulitis surrounding her G-tube. No signs of obstruction. She has grown out multiple drug-resistant organisms in the past. Vancomycin was started for MRSA and Zosyn for MDR UTI. Cultures sent. Bedside US does not show any evidence of an abdominal wall abscess. Patient requires inpatient admission for IV antibiotics and further monitoring and treatment of her sepsis. Her PMD is Dr. Joseph and Dr. Talbert. 03/03/17 21:[address] Baeza and will admit patient to IMCU. Pt says that she sometimes takes clonidine. Will provide her with 0.1 mg Clonidine to help with her elevated diastolic BP. - Vital Signs Vital signs: Temp Pulse Resp BP Pulse Ox 99.7 F 167 H 23 H 130/111 H 96 03/03/17 15:55 03/03/17 15:55 03/03/17 20:31 03/03/17 20:31 03/03/17 20:31 - Laboratory Result Diagrams: 03/03/17 17:30 03/03/17 17:30 Laboratory results interpreted by me: 03/03/17 03/03/17 03/03/17 17:30 17:30 18:40 WBC 12.1 H RBC 3.64 L Hgb 11.0 L Hct 34.2 L RDW 14.1 H Lymphocytes % 11.8 L Monocytes % 13.2 H Absolute Neutrophils 8.9 H Absolute Monocytes 1.6 H Creatinine 0.50 L Alkaline Phosphatase 143 H Creatine Kinase < 20 L Total Protein 10.4 H Ur Leukocyte Esterase MODERATE H - Diagnostic Test Radiology reviewed: Image reviewed, Reports reviewed Radiology results interpreted by me: CTA: No PE or any other acute changes. Chronic findings. KUB: Possible constipation. - EKG Interpretation by Me EKG shows normal: Sinus rhythm, Jackson Rate: Tachycardia - HR 163 Additional EKG results interpreted by me: QTc 501 Discharge - Discharge Clinical Impression: Abdominal wall cellulitis Sepsis Qualifiers: Sepsis type: sepsis due to unspecified organism Qualified Code(s): A41.9 - Sepsis, unspecified organism Urinary tract infection Qualifiers: Urinary tract infection type: site unspecified Hematuria presence: without hematuria Qualified Code(s): N39.0 - Urinary tract infection, site not specified Condition: Stable Disposition: ADMITTED INPATIENT [facility] Admitted: IMCU Referrals: BOB JOSEPH MD [Primary Care Provider] - Follow up as needed
[2017-03-03 20:53] LABS: URINE BARBITURATES SCREEN UNCONFIRMED POSITIVE; URINE METHADONE SCREEN NEGATIVE; URINE OPIATES LOW UNCONFIRMED POSITIVE; URINE PHENCYCLIDINE SCREEN NEGATIVE
[2017-03-03] MEDS ORDERED: CLONIDINE HCL 0.1 MG TABLET PO ONE (21:12)
[2017-03-03] MEDS ORDERED: PHARMACY COMMUNICATION ORDER MC SCH (23:45)
[2017-03-03] MEDS ORDERED: VANCOMYCIN HCL 0 MG in DEXTROSE 5%-WATER 250 ML IV NR (23:45)
[2017-03-04] MEDS ORDERED: DEXTROSE 5%-NORMAL SALINE 500 ML IV PRN ×2 (00:41→00:49)
[2017-03-04] MEDS ORDERED: ACETAMINOPHEN SOLN 325 MG/10.15 ML UDCUP PEG PRN (00:46)
--- NOTE | 2017-03-04 01:04 | PDOC H&P ---
History of Present Illness Admission Date/PCP: 03/03/17 21:45 BOB ELI MD [facility] Eron Kramer Patient complains of: n/v, abd/chest/lower back pain, PEG site drainage History of Present Illness: JOSE DUMONT is a 21 year old -[place] female with multiple underlying chronic medical problems, including systemic lupus, antiphospholipid syndrome, with prior DVT and pulmonary emboli, currently on Arixtra for same, history of heparin-induced thrombocytopenia, Chronic pain, who presents to the emergency room for evaluation of above multiple complaints. She is status post implantation of PEG tube 2 for combination of persistent weight loss, severe reflux, and dysphagia with virtually any p.o. intake, which according to patient, sometimes resulted in aspiration pneumonia. Second PEG tube implantation January 18 of this year at [facility]. Patient has been discussed with emergency room physician who evaluated the patient. As noted subjective fever, nausea and vomiting 1. All symptoms have been concentrated over the last 2-3 days. Primary complaint has been upper abdominal pain surrounding her PEG tube site. This is been particularly noticeable over the last 2-3 days. She has also noticed increasing somewhat purulent drainage from the PEG tube site, which is new for her. Complaining of chest, abdominal, lower back, and bilateral leg pain. As noted above, has chronic pain. Bedside ultrasound by the emergency room physician failed to reveal any evidence of abdominal wall abscess surrounding the PEG tube site. Hypertensive urgency, with tachycardia in the emergency room. Did not take her morning Tenormin morning of March 03, due to nausea and vomiting, and apparently has had only one of her every 8 hour doses of clonidine. Hospitalized on our service December 22 through the of this year, with final diagnoses including severe dehydration, along with diarrhea and chronic pain. Discharge summary has been reviewed. Admitted to our service June 11 of last year, with diagnosis at that time including suspected lupus flare, with nausea vomiting and chest pain, epigastric abdominal pain, constipation, leukocytosis, and abnormal urinalysis. History and physical has been reviewed. [facility] and are reviewed. X-ray summary results are listed below, with full report(s) reviewed. . EKG reviewed and compared to prior tracing from January 31 of this year.. Social history/personal habits: Single. No children. No alcohol tobacco or illicit drug use. Unemployed. Lives at home with mother, who also has lupus Allergies/adverse reactions are listed in [employer] and are reviewed. Home medications initially autopopulated into [employer] may not accurately reflect patient's true medications, dosages, and/or frequencies. carpet cleaning technician to reconcile medications. Unfortunately, patient not certain of all medications/dosages/frequencies. REVIEW OF SYSTEMS: Constitutional: See history and present illness. Eyes: Wears glasses. ENT: See history and present illness. Pulmonary: See history and present illness. Cardiovascular: See history and present illness. Gastrointestinal: See history and present illness. Skin: See history and present illness. Hematologic: Easy bruising. Neurologic: No current complaints, including numbness or tingling. Musculoskeletal: See history and present illness. Psychiatric: Denies anxiety or depression. Endocrine: No current complaints, including polyuria. Genitourinary: No current complaints, including dysuria. PHYSICAL EXAMINATION: 5 feet 1 inches tall. 43.3 kg. BMI 18 kg/m. Manual blood pressure 142/98 in the right arm; 138/102 in the left. Pulse 112 and regular. Respirations are 17 and unlabored. 99% saturation on room air. Temperature 98.2. Thin somewhat frail also somewhat chronically ill-appearing -[place] female who nevertheless appears approximately her stated age. Smiling pleasant awake alert and cooperative. Mildly anxious; no agitation. Female emergency room nurse Nova is present. Skin is warm and dry. No grossly obvious evidence of rash in areas of skin examined. No subcutaneous nodules palpated. Left upper anterior chest wall subcutaneous venous port, currently in use. ENT: Hearing grossly normal to normal conversation. Tongue midline on protrusion pink and slightly moist. Eyes: No scleral icterus. Pupils equal and reactive to light at 5 mm. [place] conjunctivae. Neck is supple and nontender to gentle active range of motion and palpation. Midline trachea. No palpable thyroid nodule mass enlargement or tenderness. Lymphatic: No palpable cervical or clavicular nodes. Psychiatric: Reasonable insight into acute and chronic medical issues. Oriented to time location and why here. Lungs: Auscultation reveals clear and equal breath sounds bilaterally. No use of accessory respiratory muscles. Cardiovascular: Heart regular rate and rhythm, without gallop murmur or rub. No carotid or abdominal aortic bruits. No ankle or pedal edema. Faintly palpable dorsalis pedis pulses. Abdomen:soft slightly distended with occasional bowel sounds. Mild diffuse tenderness, a bit more noticeable for several centimeters surrounding the PEG tube site. Unable to adequately evaluate abdomen for masses or organomegaly due to distention and discomfort. PEG tube site itself is not too overly remarkable, although there is a several centimeter surrounding area of mild cellulitis. No crepitus fluctuance or expressible discharge. Extremities: Feet are warm and dry. No calf tenderness to compression. No grossly obvious visual evidence of calf swelling. Gentle manipulation of lower extremities fails to reveal any obvious evidence of injury or instability to knees hips or ankles. Neurologic: Moves upper extremities grossly normally. Patellar reflexes absent. Absent Babinski. Light touch is intact at feet. Dorsiflexion and plantarflexion of feet 5 / 5 and symmetric. Past Medical History Cardiac Medical History: Reports: DVT, Hypertension, Pulmonary Embolism, Other - Pulmonary hypertension Denies: Myocardial Infarction, Hyperlipidema Pulmonary Medical History: Reports: Asthma - Pediatric, Pneumonia Denies: Bronchitis, Chronic Obstructive Pulmonary Disease (COPD), Tuberculosis EENT Medical History: Reports: Eyes - Wears glasses, Throat - Chronic dysphagia Denies: Ears Neurological Medical History: Reports: Migraine, Seizures Denies: Hemorrhagic CVA, Ischemic CVA Endocrine Medical History: Denies: Diabetes Mellitus Type 1, Diabetes Mellitus Type 2, Hyperthyroidism, Hypothyroidism Renal/ Medical History: Reports: Other - Occasional urinary tract infection GI Medical History: Reports: Gastroesophageal Reflux Disease, Peptic Ulcer Disease - History of same Denies: Cirrhosis, Hepatitis Musculoskeltal Medical History: Reports: Other - Lupus Skin Medical History: Reports: Other - Occasional skin rash with her lupus flare Psychiatric Medical History: Denies: Alcohol Dependency, Depression, General Anxiety Disorder, Substance Abuse, Tobacco Dependency Hematology: Reports: Anemia, Heparin Induced Thrombocytopenia - History of same , Other - Antiphospholipid syndrome, on chronic Arixtra for same. Infectious Medical History: Reports: Clostridium Difficile, Methicillin- Resistant Staph Aureus Denies: Hepatitis B, Hepatitis C Past Surgical History Past Surgical History: Reports: Other - PEG placement 2, Port-A-Cath Denies: Hysterectomy Social History Information Source: Patient, Emergency Med Personnel, [facility] Records Lives with: Family Smoking Status: Never Smoker Frequency of Alcohol Use: None Hx Recreational Drug Use: No Drugs: None Hx Prescription Drug Abuse: No - Advance Directive Resuscitation Status: Full Code Surrogate healthcare decision maker:: Mother Family History Family History: Reviewed & Not Pertinent, Other - Lupus-mother Parental Family History Reviewed: Yes - Mother with lupus. Father in fairly good health. Children Family History Reviewed: NA Sibling(s) Family History Reviewed.: Yes - Healthy Medication/Allergy Home Medications: Albuterol Sulfate [Ventolin HFA MDI 18 GM] 2 puff IH Q6HP PRN 03/03/17 Butalb/Acetaminophen/Caffeine [Fioricet (50-325-40 mg) Tablet] 1 tab PO QIDP PRN 03/03/17 Cetirizine HCl [Zyrtec 10 mg Tablet] 1 tab PO DAILY 03/03/17 Fluticasone/Salmeterol [Advair 250-50 Diskus 28 dose] 1 inh IH Q12 03/03/17 Fondaparinux Sodium [Arixtra] 7.5 mg SQ DAILY 03/03/17 Gabapentin [Neurontin 300 mg Capsule] 900 mg PO Q8 03/03/17 Hydroxychloroquine Sulfate [Plaquenil 200 mg Tablet] 200 mg PO BID 03/03/17 Ibuprofen [Motrin 800 mg Tablet] 800 mg PO TIDP PRN 03/03/17 Lansoprazole [Prevacid] 30 mg PO DAILY 03/03/17 Levetiracetam 750 mg PO Q12 03/03/17 Nystatin/Dexameth/Diphen [Magic Mouthwash (Omh Formula) Susp] 10 ml PO Q6HP PRN 03/03/17 Ondansetron [Zofran Odt] 8 mg PO QIDP PRN 03/03/17 Prednisone [Deltasone 10 mg Tablet] 10 mg PO DAILY 03/03/17 Promethazine HCl [Phenergan 25 mg Tablet] 25 mg PO Q6HP PRN 03/03/17 Tizanidine HCl [Zanaflex 4 Mg Tablet] 8 mg PO TIDP PRN 03/03/17 Zolpidem Tartrate [Ambien] 10 mg PO HSP PRN 03/03/17 Clobetasol Propionate/Emoll [Clobetasol Emollient 0.05% Crm] 1 applic TP BIDP PRN 03/04/17 Clonidine HCl [Catapres 0.3 mg Tablet] 0.3 mg PO Q12 03/04/17 Hydroxyzine HCl [Atarax 25 mg Tablet] 1 tab PO TIDP PRN 03/04/17 Mycophenolate Suspension 200mg/Ml 2.5 ml PO BID 03/04/17 Oxycodone HCl/Acetaminophen [Percocet 7.5-325 Mg Tablet] 1 each PO QIDP PRN 10/20 Triamcinolone Acetonide [Kenalog In Orabase] 1 applic DT QIDP PRN 03/04/17 Allergies/Adverse Reactions: shellfish derived Allergy (Severe, Verified 01/31/17 21:33) Anaphylaxis ketorolac tromethamine [From Toradol] Allergy (Intermediate, Verified 01/31/17 21:33) Hives morphine [Morphine] Allergy (Intermediate, Verified 01/31/17 21:33) Hives sulfamethoxazole [From Bactrim] Allergy (Unknown, Verified 01/31/17 21:33) Pruritis trimethoprim [From Bactrim] Allergy (Unknown, Verified 01/31/17 21:33) Pruritis belimumab [From Benlysta] Allergy (Verified 01/31/17 21:33) rash Physical Exam Vital Signs: Temp Pulse Resp BP Pulse Ox 98.2 F 167 H 22 H 110/89 H 96 03/03/17 23:31 03/03/17 15:55 03/03/17 23:31 03/03/17 23:31 03/03/17 23:31 Results Impressions: Abdomen X-Ray 03/03/17 16:16 IMPRESSION: Possible constipation. Chest/Abdomen CTA 03/03/17 16:55 IMPRESSION: No evidence for pulmonary embolic disease. No consolidations or pleural effusions are identified. Other findings as noted above Assessment & Plan - Diagnosis (1) Abdominal wall cellulitis Is this a current diagnosis for this admission?: YesPlan: Zosyn and intravenous vancomycin. Positive history of MRSA. CT scan of abdomen and pelvis without contrast. Surgery consult. I have strongly encouraged patient not to get out of bed without notifying staff , to avoid a fall with injury. Knee high SCDs for DVT prophylaxis; with patient on chronic anticoagulation, no need for Lovenox or heparin. Impression and plans were discussed with patient, who concurs. Time spent in evaluation and management of patient: 95 minutes. (2) Generalized abdominal pain Is this a current diagnosis for this admission?: YesPlan: Likely due to underlying constipation, but will proceed with CT scan, as noted above. (3) Hypertensive urgency Is this a current diagnosis for this admission?: YesPlan: Blood pressure gradually decreasing into a much more acceptable range with current treatment. Resume home medications as appropriate once these have been determined and reviewed. Vital sign parameters on chart. (4) Nausea & vomiting Qualifiers: Vomiting type: unspecified Vomiting Intractability: non-intractable Qualified Code(s): R11.2 - Nausea with vomiting, unspecified Is this a current diagnosis for this admission?: Yes (5) Nodule of right lung Is this a current diagnosis for this admission?: YesPlan: Outpatient follow-up. Discussed with patient in layperson's terms importance of same, to ensure area of concern is not malignant (cancer).. (6) UTI (urinary tract infection) Qualifiers: Urinary tract infection type: site unspecified Is this a current diagnosis for this admission?: YesPlan: Antibiotics as noted above. Her urine culture and sensitivity results from June of last year reviewed. (7) Antiphospholipid syndrome Is this a current diagnosis for this admission?: YesPlan: Resume home medications as appropriate once these have been determined and reviewed. (8) Constipation Qualifiers: Constipation type: unspecified constipation type Qualified Code(s): K59.00 - Constipation, unspecified Is this a current diagnosis for this admission?: Yes (9) History of heparin-induced thrombocytopenia Is this a current diagnosis for this admission?: Yes (10) History of pulmonary embolism Is this a current diagnosis for this admission?: Yes (11) Lupus (systemic lupus erythematosus) Qualifiers: Systemic lupus erythematosus type: unspecified Systemic lupus erythematosus organ involvement: unspecified Qualified Code(s): M32.9 - Systemic lupus erythematosus, unspecified Is this a current diagnosis for this admission?: YesPlan: Resume home medications as appropriate once these have been determined and reviewed. (12) Seizure Is this a current diagnosis for this admission?: YesPlan: Seizure precautions. Resume home medications as appropriate once these have been determined and reviewed. - Inpatient Certification Based on my medical assessment, after consideration of the patient's comorbidities, presenting symptoms, or acuity I expect that the services needed warrant INPATIENT care.: Yes I certify that my determination is in accordance with my understanding of Medicare's requirements for reasonable and necessary INPATIENT services [42 CFR 412.3e].: Yes Medical Necessity: Significant Comorbidiites Make Outpatient Treatment Too Risky , Need Close Monitoring Due to Risk of Patient Decompensation, Need For Continuous Telemetry Monitoring, Need for IV Antibiotics, Risk of Complication if Not Cared For in Hospital, Risk of Diagnosis Which Will Require Inpatient Eval/Care/Monitoring Post Hospital Care: D/C or Transfer Summary
[2017-03-04] MEDS: HYDROMORPHONE HCL INJ/PF 2 MG/ML AMPULE IV PRN ×5 (01:08→23:42)
[2017-03-04] MEDS ORDERED: PIPERACILLIN/TAZOBACTAM 3.375 GM VIAL IV ONE (02:11)
[2017-03-04 02:48] LABS: PROTHROMBIN TIME 14.2 SEC (11.4-15.4)
[2017-03-04 02:49] LABS: PARTIAL THROMBOPLASTIN TIME 35.9 SEC (23.5-35.8)
[2017-03-04] MEDS: PIPERACILLIN SODIUM/TAZOBACTAM 3.375 GM in NORMAL SALINE 100 ML IV SCH ×4 (02:55→21:58)
[2017-03-04] MEDS ORDERED: PROMETHAZINE HCL 6.25 MG/5 ML SYRUP 60 ML ONE (03:28)
[2017-03-04] MEDS: PROMETHAZINE HCL 6.25 MG/5 ML SYRUP 60 ML PEG PRN ×2 (03:56→20:20)
--- NOTE | 2017-03-04 04:01 | RADIOLOGY REPORT (SQ) ---
EXAM DESCRIPTION: CT ABD/PELVIS NO ORAL OR IV COMPLETED DATE/TIME: 03/04/2017 3:35 am REASON FOR STUDY: abd pain; cellulitis @ PEG site COMPARISON: CT chest 03/03/2017, abdominal x-ray 03/03/2017, CT abdomen and pelvis 11/02/2016. TECHNIQUE: CT scan of the abdomen and pelvis performed without intravenous or oral contrast. Images reviewed with lung, soft tissue, and bone windows. Reconstructed coronal and sagittal MPR images revi ewed. All images stored on PACS. All CT scanners at this facility use dose modulation, iterative reconstruction, and/or weight based d osing when appropriate to reduce radiation dose to as low as reasonably achievable (ALARA). [facility]: Dose Right [facility]: CareDose [facility]: Dose Right [facility]: Teradose 4D [facility]: BuyerCurious RADIATION DOSE: 4.80mGy. LIMITATIONS: None. FINDINGS: LOWER CHEST: Nodular ground-glass opacities in the right lower lobe. Mild atelectasis in the right middle lobe, right lower lobe and left lower lobe. No pleural effusion. Partially visuali zed central line with the tip at the right atrium. NON-CONTRASTED LIVER, SPLEEN, ADRENALS: Evaluation limited by lack of IV contrast. No identified sign ificant masses. PANCREAS: No peripancreatic inflammatory changes. GALLBLADDER: No identified stones by CT criteria. No inflammatory changes to suggest cholecystitis. RIGHT KIDNEY AND URETER: Assessment for masses limited by lack of IV contrast. No significant calci fications. No hydronephrosis or hydroureter. Contrast excretion in the renal collecting system and ureter. LEFT KIDNEY AND URETER: Assessment for masses limited by lack of IV contrast. No significant calcif ications. No hydronephrosis or hydroureter. Contrast excretion in the renal collecting system and ureter. AORTA AND RETROPERITONEUM: No abdominal aortic aneurysm. No retroperitoneal masses or hemorrhage. BOWEL AND PERITONEAL CAVITY: A gastric tube is seen at the stomach. No dilated small bowel loops or focal inflammatory changes. Moderate amount of stool in the colon. APPENDIX: Normal. PELVIS, BLADDER, AND ABDOMINAL WALL:The urinary bladder is partially distended, filled with radiopaqu e material. No obvious pelvic mass. No free fluid. Soft tissue density in the anterior abdominal wall around the gastric tube measuring approximately 1. 8 cm AP x 3.6 cm transverse. Surgical clips are noted at the site. BONES: Redemonstration of compression deformities at T11, L1 and L4 vertebral bodies. IMPRESSION: Soft tissue density in the anterior abdominal wall around the gastric tube may represent postsurgical seroma/hematoma versus abscess. Moderate amount of stool in the colon. Intravenous contrast excretion in the bilateral renal collecting systems, ureters and in the urinary bladder. Please correlate with history of recent procedure. Nodular ground-glass opacities in the right lower lobe, may be secondary to acute infection/inflammat ion such as aspiration pneumonia. Atelectatic changes in the right middle lobe and bilateral lower l obes. TECHNICAL DOCUMENTATION: JOB ID: [id number] Quality ID # [id number]: Final reports with documentation of one or more dose reduction techniques (e.g., Au tomated exposure control, adjustment of the mA and/or kV according to patient size, use of iterative reconstruction technique) 2010 [employer]- All Rights Reserved
--- NOTE | 2017-03-04 07:23 | Progress Note ---
Provider Note Provider Note: ROSE GARCIA Search Criteria: Last Name 'rose' and First Name 'Rosario' and = 89' and Request Period = 09/05/16' to 03/04/17' - 3 out of 3 Recipients Selected. Fill Date Product, Str, Form Qty Days Pt ID Prescriber Written RX# N/R* Pharm MED+ ------ ---- --------- --- ------- ----- ------- 02/19/2017 ZOLPIDEM TARTRATE 10 MG TABLET 30.00 30 [id number] 2016 [id number] R [id number] 00.0 02/12/2017 OXYCODON-ACETAMINOPHEN 7.5-325 120.00 30 [id number] 2016 [id number] N 01/23/2017 ZOLPIDEM TARTRATE 10 MG TABLET 30.00 30 [id number] 2016 [id number] R [id number] 00.0 01/13/2017 OXYCODON-ACETAMINOPHEN 7.5-325 120.00 30 [id number] 2016 [id number] N [id number] 45.0 12/27/2016 ZOLPIDEM TARTRATE 10 MG TABLET 30.00 30 [id number] 2016 [id number] N [id number] 00.0 12/19/2016 OXYCODON-ACETAMINOPHEN 7.5-325 120.00 30 [id number] 2016 [id number] N [id number] 45.0 12/06/2016 ESZOPICLONE 3 MG TABLET 30.00 30 [id number] 06/25/2016 [id number] R [id number] 00.0 11/27/2016 ZOLPIDEM TARTRATE 10 MG TABLET 30.00 30 [id number] 2015 [id number] R [id number] 00.0 11/19/2016 OXYCODON-ACETAMINOPHEN 7.5-325 120.00 30 [id number] 2016 [id number] N [id number] 45.0 11/09/2016 ESZOPICLONE 3 MG TABLET 30.00 30 [id number] 06/25/2016 [id number] R [id number] 00.0 10/31/2016 ZOLPIDEM TARTRATE 10 MG TABLET 30.00 30 [id number] 2015 [id number] R [id number] 00.0 10/22/2016 OXYCODON-ACETAMINOPHEN 7.5-325 120.00 30 [id number] 2016 [id number] N [id number] 45.0 10/05/2016 LUNESTA 3 MG TABLET 15.00 30 [id number] 06/25/2016 [id number] R [id number] 00.0 10/04/2016 ZOLPIDEM TARTRATE 10 MG TABLET 30.00 30 [id number] 2015 [id number] R [id number] 00.0 09/29/2016 OXYCODONE-ACETAMINOPHEN 5-325 50.00 9 [id number] 2015 [id number] N [id number] 41.67 09/22/2016 OXYCODON-ACETAMINOPHEN 7.5-325 90.00 30 [id number] 2015 [id number] N [id number] 33.75 09/07/2016 ZOLPIDEM TARTRATE 10 MG TABLET 30.00 30 [id number] 2015 [id number] N [id number] 00.0 [id number] WENDY MONROY MD; [address], [place] [id number] MATY STONE A (MSN); [facility] [place] [address] [id number] SYLVAIN LOU DDS; [address] [place] [address] [id number] MIGNON LEIJA; [facility] [place] [address] [id number] KIKA LIU MD; [address], [place] [address] Pharmacies that dispensed prescriptions listed
[2017-03-04 07:55] LABS: ABSOLUTE BASOPHILS # (AUTO) 0.1 10^3/uL (0.0-0.2); ABSOLUTE EOSINOPHILS # (AUTO) 0.2 10^3/uL (0.0-0.6); ABSOLUTE LYMPHOCYTES (AUTO) 1.3 10^3/uL (0.5-4.7); ABSOLUTE MONOCYTES (AUTO) 1.1 10^3/uL (0.1-1.4); BASOPHILS % (AUTO) 1.1 % (0-2); EOSINOPHILS % (AUTO) 2.3 % (0-6); HEMATOCRIT 29.7 % (36.0-47.0); HEMOGLOBIN 9.7 g/dL (12.0-15.5); HGB HCT DIFFERENCE -0.6; LYMPHOCYTES % (AUTO) 19.2 % (13-45); MEAN CORPUSCULAR HEMOGLOBIN 30.8 pg (27.0-33.4); MEAN CORPUSCULAR HGB CONC 32.5 g/dL (32.0-36.0); MEAN CORPUSCULAR VOLUME 95 fl (80-97); MONOCYTES % (AUTO) 16.8 % (3-13); RED BLOOD COUNT 3.14 10^6/uL (3.72-5.28); RED CELL DISTRIBUTION WIDTH 14.3 % (11.5-14.0); SEGMENTED NEUTROPHILS % (AUTO) 60.6 % (42-78); WHITE BLOOD COUNT 6.6 10^3/uL (4.0-10.5)
[2017-03-04 08:13] LABS: ANION GAP 11 (5-19); BLOOD UREA NITROGEN 6 mg/dL (7-20); CALCIUM 8.7 mg/dL (8.4-10.2); CARBON DIOXIDE 25 mmol/L (22-30); CHLORIDE 106 mmol/L (98-107); CREATININE RESULT 0.46 mg/dL (0.52-1.25); GLUCOSE 71 mg/dL (75-110); SODIUM 142.4 mmol/L (137-145)
--- NOTE | 2017-03-04 09:57 | EKG REPORT ---
SEVERITY:- ABNORMAL ECG - SINUS TACHYCARDIA PROBABLE LVH WITH SECONDARY REPOL ABNRM ABNORMAL T, CONSIDER ISCHEMIA, INFERIOR LEADS PROLONGED QT INTERVAL : Confirmed by: Homer Edmonds 04-Mar-2017 09:56:28
--- NOTE | 2017-03-04 09:57 | EKG REPORT ---
SEVERITY:- ABNORMAL ECG - SINUS TACHYCARDIA REPOL ABNRM SUGGESTS ISCHEMIA, DIFFUSE LEADS PROLONGED QT INTERVAL : Confirmed by: Homer Edmonds 04-Mar-2017 09:56:35
[2017-03-04] MEDS ORDERED: DOCUSATE SODIUM 100 MG/10 ML UDC PEG SCH (10:00)
[2017-03-04] MEDS ORDERED: VANCOMYCIN HCL 750 MG in DEXTROSE 5%-WATER 250 ML IV SCH (10:00)
[2017-03-04] MEDS ORDERED: HYDROMORPHONE HCL INJ/PF 2 MG/ML AMPULE IV PRN (11:08)
[2017-03-04] MEDS ORDERED: HYDROMORPHONE HCL INJ/PF 2 MG/ML AMPULE IV ONE (11:30)
--- NOTE | 2017-03-04 13:53 | PDOC PROGRESS REPORT ---
Subjective Progress Note for:: 03/04/17 Subjective:: Patient has continued abdominal pain. She has had drainage from around her gastrostomy tube. She denies fever, chills, chest pain, nausea, vomiting. Physical Exam Vital Signs: Temp Pulse Resp BP Pulse Ox 98.8 F 109 H 16 141/108 H 96 03/04/17 12:03 03/04/17 12:03 03/04/17 12:03 03/04/17 12:03 03/04/17 12:03 Intake & Output 03/03/17 03/04/17 03/05/17 06:59 06:59 06:59 Intake Total 300 Balance 300 Weight 46.8 kg GENERAL: No acute distress HEENT: Conjunctiva clear, nonicteric, moist mucous membranes, no JVD, midline trachea RESPIRATORY: Clear to auscultation bilaterally, no wheezes, no rhonchi CARDIAC: Regular rate and rhythm, no murmurs/gallops/rubs ABDOMEN: Soft, nondistended, gastrostomy tube in place with purulent drainage around the tube EXTREMETIES: No edema, cyanosis, clubbing NEUROLOGIC: Alert, oriented to person/place/time, CN's grossly intact, no focal deficits SKIN: Induration/erythema surrounding gastrostomy tube PSYCH: Normal mood, normal affect Results Laboratory Results: 03/04/17 06:50 03/04/17 06:50 03/04/17 03/04/17 03/04/17 02:20 06:50 06:50 WBC 6.6 RBC 3.14 L Hgb 9.7 L Hct 29.7 L MCV 95 MCH 30.8 MCHC 32.5 RDW 14.3 H Plt Count 292 Seg Neutrophils % 60.6 Lymphocytes % 19.2 Monocytes % 16.8 H Eosinophils % 2.3 Basophils % 1.1 Absolute Neutrophils 4.0 Absolute Lymphocytes 1.3 Absolute Monocytes 1.1 Absolute Eosinophils 0.2 Absolute Basophils 0.1 Sodium 142.4 Potassium 4.0 Chloride 106 Carbon Dioxide 25 Anion Gap 11 BUN 6 L Creatinine 0.46 L Est GFR ( Amer) > 60 Est GFR (Non-Af Amer) > 60 Glucose 71 L Calcium 8.7 Magnesium 1.9 03/04/17 03/04/17 02:20 06:50 Troponin I < 0.012 < 0.012 Impressions: Abdomen X-Ray 03/03/17 16:16 IMPRESSION: Possible constipation. Chest/Abdomen CTA 03/03/17 16:55 IMPRESSION: No evidence for pulmonary embolic disease. No consolidations or pleural effusions are identified. Other findings as noted above Abdomen/Pelvis CT 03/04/17 00:00 IMPRESSION: Soft tissue density in the anterior abdominal wall around the gastric tube may represent postsurgical seroma/hematoma versus abscess. Moderate amount of stool in the colon. Intravenous contrast excretion in the bilateral renal collecting systems, ureters and in the urinary bladder. Please correlate with history of recent procedure. Nodular ground-glass opacities in the right lower lobe, may be secondary to acute infection/inflammation such as aspiration pneumonia. Atelectatic changes in the right middle lobe and bilateral lower lobes. Assessment & Plan - Diagnosis (1) Abdominal wall cellulitis Is this a current diagnosis for this admission?: YesPlan: Surgery is going to discontinue gastrostomy tube. Continue IV Zosyn for now. Transition to oral antibiotics once stable. Hold Plaquenil for now. (2) Abdominal pain Qualifiers: Abdominal location: generalized Qualified Code(s): R10.84 - Generalized abdominal pain Is this a current diagnosis for this admission?: YesPlan: As needed IV Dilaudid. Treat abdominal wall infection. (3) Anemia of chronic disease Is this a current diagnosis for this admission?: Yes (4) Antiphospholipid syndrome Is this a current diagnosis for this admission?: Yes (5) History of pulmonary embolism Is this a current diagnosis for this admission?: YesPlan: Arixtra 7.5 mg subcu daily. (6) Lupus (systemic lupus erythematosus) Qualifiers: Systemic lupus erythematosus type: unspecified Systemic lupus erythematosus organ involvement: unspecified Qualified Code(s): M32.9 - Systemic lupus erythematosus, unspecified Is this a current diagnosis for this admission?: YesPlan: Hold Plaquenil until infection under better control. Continue prednisone. (7) UTI (urinary tract infection) Qualifiers: Urinary tract infection type: site unspecified Is this a current diagnosis for this admission?: YesPlan: Continue Zosyn for now pending further culture. (8) Malnutrition Is this a current diagnosis for this admission?: YesPlan: Gastrostomy tube will be discontinued secondary to infection. Patient will have to be encouraged to take good oral intake. - Time Time Spent with patient: 35 or more minutes
[2017-03-04] MEDS: GABAPENTIN 300 MG CAPSULE PO SCH ×2 (14:51→21:59)
--- NOTE | 2017-03-04 15:11 | OPERATIVE REPORT E ---
Operative Report NAME: JOSE DUMONT : 1995 AGE: 21Y DATE OF SURGERY: 03/04/2017 ROOM: 327 PRE-PROCEDURE DIAGNOSIS: Infection around the PEG tube site. POSTOPERATIVE DIAGNOSIS: Infection around the PEG tube site. PROCEDURE: Removal of PEG tube and culture of drainage. SURGEON: MITCHELL ASHBY M.D. ANESTHESIA: Given IV pain medication with Dilaudid 1 mg IV five minutes prior to removal of the PEG tube. INDICATIONS: This is a 21-year-old female with a history of lupus and failure to thrive. The PEG tube was put in about 2 months ago. However, the last couple of days, the patient noted some drainage around the catheter and subsequently got admitted. A CAT scan of the abdomen was done, which showed a collection, whether a seroma or hematoma versus abscess, was noted around the PEG tube. There is some inflammation around the PEG tube site, although the patient does not have much tenderness and no drainage when squeezing around the PEG tube. DESCRIPTION OF PROCEDURE: The balloon on the PEG tube has been deflated by aspirating about 5 mL of saline. The PEG tube was subsequently pulled out and a small amount of mucoid gastric secretion came out. A specimen was then taken for C and S. An attempt was done to squeeze around the PEG tube site, but unable to squeeze out any drainage. Also, there is no area of potential collection that can be felt. At any rate, there is some area of redness around the PEG tube site. A dry dressing was then placed over the PEG tube site and a transparent dressing placed over it. The patient tolerated the procedure well. The patient will be asked to take some p.o. nutrition while waiting for the wound to heal before placement of another PEG tube if still necessary. DICTATING PHYSICIAN: MITCHELL ASHBY M.D. [id number] PHY#: [id number] ID: [id number] JOB#: [id number] ACCT: [id number] cc:MITCHELL ASHBY M.D. >
[2017-03-04] MEDS ORDERED: (PENDING PHARMACY ID) (Zolpidem Tartrate [Ambien] 5 MG) PO PRN (21:33)
[2017-03-04] MEDS: LEVETIRACETAM ORAL SOLN 500 MG/5 ML UDCUP PO SCH (21:58)
[2017-03-04] MEDS: FLUTICASONE/SALMETEROL DISKUS 250-50 MCG/DOSE IH SCH (21:59)
[2017-03-04] MEDS: CLONIDINE HCL 0.1 MG TABLET PO SCH (22:00)
[2017-03-04] MEDS ORDERED: (PENDING PHARMACY ID) (Clonidine Hcl [Catapres 0.3 Mg Tablet] 0.3 MG) PO SCH (22:00)
[2017-03-05] MEDS: PIPERACILLIN SODIUM/TAZOBACTAM 3.375 GM in NORMAL SALINE 100 ML IV SCH ×2 (04:07→10:40)
[2017-03-05] MEDS: GABAPENTIN 300 MG CAPSULE PO SCH ×3 (06:46→22:14)
[2017-03-05] MEDS: LANSOPRAZOLE 30 MG TAB.RAP.DR PO SCH (06:46)
[2017-03-05] MEDS: HYDROMORPHONE HCL INJ/PF 2 MG/ML AMPULE IV PRN ×4 (06:47→23:57)
[2017-03-05 07:26] LABS: ABSOLUTE BASOPHILS # (AUTO) 0.1 10^3/uL (0.0-0.2); ABSOLUTE EOSINOPHILS # (AUTO) 0.2 10^3/uL (0.0-0.6); ABSOLUTE LYMPHOCYTES (AUTO) 1.1 10^3/uL (0.5-4.7); ABSOLUTE MONOCYTES (AUTO) 1.3 10^3/uL (0.1-1.4); ABSOLUTE NEUT (AUTO) 4.1 10^3/uL (1.7-8.2); BASOPHILS % (AUTO) 1.2 % (0-2); EOSINOPHILS % (AUTO) 3.5 % (0-6); HEMATOCRIT 31.3 % (36.0-47.0); HEMOGLOBIN 10.2 g/dL (12.0-15.5); HGB HCT DIFFERENCE -0.7; MEAN CORPUSCULAR HEMOGLOBIN 30.1 pg (27.0-33.4); MEAN CORPUSCULAR HGB CONC 32.4 g/dL (32.0-36.0); MEAN CORPUSCULAR VOLUME 93 fl (80-97); MONOCYTES % (AUTO) 18.7 % (3-13); RED BLOOD COUNT 3.37 10^6/uL (3.72-5.28); RED CELL DISTRIBUTION WIDTH 14.4 % (11.5-14.0); SEGMENTED NEUTROPHILS % (AUTO) 60.6 % (42-78); WHITE BLOOD COUNT 6.8 10^3/uL (4.0-10.5)
[2017-03-05 07:32] LABS: ANION GAP 11 (5-19); BLOOD UREA NITROGEN 6 mg/dL (7-20); CALCIUM 8.8 mg/dL (8.4-10.2); CARBON DIOXIDE 27 mmol/L (22-30); CHLORIDE 103 mmol/L (98-107); CREATININE RESULT 0.48 mg/dL (0.52-1.25); GLUCOSE 90 mg/dL (75-110); MAGNESIUM 1.8 mg/dL (1.6-2.3); POTASSIUM 4.2 mmol/L (3.6-5.0); SODIUM 140.9 mmol/L (137-145)
[2017-03-05] MEDS ORDERED: (PENDING PHARMACY ID) (Lansoprazole [Prevacid] 30 MG) PO SCH (10:00)
[2017-03-05] MEDS: FLUTICASONE/SALMETEROL DISKUS 250-50 MCG/DOSE IH SCH ×2 (10:41→22:12)
[2017-03-05] MEDS: CLONIDINE HCL 0.1 MG TABLET PO SCH ×2 (10:41→22:14)
[2017-03-05] MEDS: FONDAPARINUX SODIUM INJ 7.5 MG/0.6 ML DISP.SYRIN SUBCUT SCH (10:43)
[2017-03-05] MEDS: PREDNISONE 10 MG TABLET PO SCH (10:43)
[2017-03-05] MEDS: CETIRIZINE 10 MG TABLET PO SCH (10:43)
[2017-03-05] MEDS: LEVETIRACETAM ORAL SOLN 500 MG/5 ML UDCUP PO SCH ×2 (10:46→22:13)
--- NOTE | 2017-03-05 12:14 | PDOC PROGRESS REPORT ---
Subjective Progress Note for:: 03/05/17 Subjective:: Patient's abdominal pain has improved since gastrostomy tube was discontinued yesterday. She is eating and drinking well. Patient denies fever, chills, headache, new focal weakness, chest pain, shortness of breath, nausea, vomiting , diarrhea, constipation. Physical Exam Vital Signs: Temp Pulse Resp BP Pulse Ox 99.0 F 126 H 16 136/89 H 96 03/05/17 11:47 03/05/17 11:47 03/05/17 11:47 03/05/17 11:47 03/05/17 11:47 Intake & Output 03/04/17 03/05/17 03/06/17 06:59 06:59 06:59 Intake Total 300 2019 Balance 300 2019 Weight 46.8 kg 51.2 kg GENERAL: No acute distress HEENT: Conjunctiva clear, nonicteric, moist mucous membranes, no JVD, midline trachea RESPIRATORY: Clear to auscultation bilaterally, no wheezes, no rhonchi CARDIAC: Regular rate and rhythm, no murmurs/gallops/rubs ABDOMEN: Soft, nondistended, mild tenderness around previous gastrostomy tube site EXTREMETIES: No edema, cyanosis, clubbing NEUROLOGIC: Alert, oriented to person/place/time, CN's grossly intact, no focal deficits SKIN: Induration/erythema surrounding gastrostomy tube site PSYCH: Normal mood, normal affect Results Laboratory Results: 03/05/17 06:47 03/05/17 06:47 03/05/17 03/05/17 06:47 06:47 WBC 6.8 RBC 3.37 L Hgb 10.2 L Hct 31.3 L MCV 93 MCH 30.1 MCHC 32.4 RDW 14.4 H Plt Count 305 Seg Neutrophils % 60.6 Lymphocytes % 16.0 Monocytes % 18.7 H Eosinophils % 3.5 Basophils % 1.2 Absolute Neutrophils 4.1 Absolute Lymphocytes 1.1 Absolute Monocytes 1.3 Absolute Eosinophils 0.2 Absolute Basophils 0.1 Sodium 140.9 Potassium 4.2 Chloride 103 Carbon Dioxide 27 Anion Gap 11 BUN 6 L Creatinine 0.48 L Est GFR ( Amer) > 60 Est GFR (Non-Af Amer) > 60 Glucose 90 Calcium 8.8 Magnesium 1.8 03/04/17 03/04/17 02:20 06:50 Troponin I < 0.012 < 0.012 Impressions: Abdomen X-Ray 03/03/17 16:16 IMPRESSION: Possible constipation. Chest/Abdomen CTA 03/03/17 16:55 IMPRESSION: No evidence for pulmonary embolic disease. No consolidations or pleural effusions are identified. Other findings as noted above Abdomen/Pelvis CT 03/04/17 00:00 IMPRESSION: Soft tissue density in the anterior abdominal wall around the gastric tube may represent postsurgical seroma/hematoma versus abscess. Moderate amount of stool in the colon. Intravenous contrast excretion in the bilateral renal collecting systems, ureters and in the urinary bladder. Please correlate with history of recent procedure. Nodular ground-glass opacities in the right lower lobe, may be secondary to acute infection/inflammation such as aspiration pneumonia. Atelectatic changes in the right middle lobe and bilateral lower lobes. Assessment & Plan - Diagnosis (1) Abdominal wall cellulitis Is this a current diagnosis for this admission?: YesPlan: Surgery discontinued gastrostomy tube. Discontinue IV Zosyn. Start Augmentin 500 mg 3 times daily. Hold Plaquenil for now. (2) Abdominal pain Qualifiers: Abdominal location: generalized Qualified Code(s): R10.84 - Generalized abdominal pain Is this a current diagnosis for this admission?: Yes (3) Anemia of chronic disease Is this a current diagnosis for this admission?: Yes (4) Antiphospholipid syndrome Is this a current diagnosis for this admission?: Yes (5) History of pulmonary embolism Is this a current diagnosis for this admission?: YesPlan: Arixtra 7.5 mg subcu daily. (6) Lupus (systemic lupus erythematosus) Qualifiers: Systemic lupus erythematosus type: unspecified Systemic lupus erythematosus organ involvement: unspecified Qualified Code(s): M32.9 - Systemic lupus erythematosus, unspecified Is this a current diagnosis for this admission?: YesPlan: Hold Plaquenil until infection under better control. Continue prednisone. (7) UTI (urinary tract infection) Qualifiers: Urinary tract infection type: site unspecified Is this a current diagnosis for this admission?: YesPlan: Discontinue Zosyn. Start Augmentin. (8) Malnutrition Is this a current diagnosis for this admission?: Yes - Time Time Spent with patient: 35 or more minutes
--- NOTE | 2017-03-05 14:36 | PDOC PROGRESS REPORT ---
Subjective Progress Note for:: 03/05/17 Physical Exam Vital Signs: Temp Pulse Resp BP Pulse Ox 99.0 F 126 H 16 136/89 H 96 03/05/17 11:47 03/05/17 11:47 03/05/17 11:47 03/05/17 11:47 03/05/17 11:47 Intake & Output 03/04/17 03/05/17 03/06/17 06:59 06:59 06:59 Intake Total 300 2018 594 Balance 300 2018 594 Weight 46.8 kg 51.2 kg GI/Abdominal exam: PRESENT: normal bowel sounds, other - PEG site wound is clean , dry, and intact, without drainage. Results Laboratory Results: 03/05/17 06:47 03/05/17 06:47 03/05/17 03/05/17 06:47 06:47 WBC 6.8 RBC 3.37 L Hgb 10.2 L Hct 31.3 L MCV 93 MCH 30.1 MCHC 32.4 RDW 14.4 H Plt Count 305 Seg Neutrophils % 60.6 Lymphocytes % 16.0 Monocytes % 18.7 H Eosinophils % 3.5 Basophils % 1.2 Absolute Neutrophils 4.1 Absolute Lymphocytes 1.1 Absolute Monocytes 1.3 Absolute Eosinophils 0.2 Absolute Basophils 0.1 Sodium 140.9 Potassium 4.2 Chloride 103 Carbon Dioxide 27 Anion Gap 11 BUN 6 L Creatinine 0.48 L Est GFR ( Amer) > 60 Est GFR (Non-Af Amer) > 60 Glucose 90 Calcium 8.8 Magnesium 1.8 03/04/17 03/04/17 02:20 06:50 Troponin I < 0.012 < 0.012 Impressions: Abdomen X-Ray 03/03/17 16:16 IMPRESSION: Possible constipation. Chest/Abdomen CTA 03/03/17 16:55 IMPRESSION: No evidence for pulmonary embolic disease. No consolidations or pleural effusions are identified. Other findings as noted above Abdomen/Pelvis CT 03/04/17 00:00 IMPRESSION: Soft tissue density in the anterior abdominal wall around the gastric tube may represent postsurgical seroma/hematoma versus abscess. Moderate amount of stool in the colon. Intravenous contrast excretion in the bilateral renal collecting systems, ureters and in the urinary bladder. Please correlate with history of recent procedure. Nodular ground-glass opacities in the right lower lobe, may be secondary to acute infection/inflammation such as aspiration pneumonia. Atelectatic changes in the right middle lobe and bilateral lower lobes.
[2017-03-05] MEDS: AMOXICILLIN TR/POT CLAVULANATE 500-125 MG TAB PO SCH ×2 (14:57→22:15)
[2017-03-05] MEDS: ZOLPIDEM TARTRATE 5 MG TABLET PO PRN (23:57)
[2017-03-06] MEDS: HYDROMORPHONE HCL INJ/PF 2 MG/ML AMPULE IV PRN ×5 (04:09→21:42)
[2017-03-06] MEDS: GABAPENTIN 300 MG CAPSULE PO SCH ×3 (06:13→21:43)
[2017-03-06] MEDS: AMOXICILLIN TR/POT CLAVULANATE 500-125 MG TAB PO SCH ×3 (06:13→21:43)
[2017-03-06] MEDS: LANSOPRAZOLE 30 MG TAB.RAP.DR PO SCH (06:14)
[2017-03-06] MEDS: FLUTICASONE/SALMETEROL DISKUS 250-50 MCG/DOSE IH SCH ×2 (08:26→21:45)
[2017-03-06] MEDS: FONDAPARINUX SODIUM INJ 7.5 MG/0.6 ML DISP.SYRIN SUBCUT SCH (08:26)
[2017-03-06] MEDS: CLONIDINE HCL 0.1 MG TABLET PO SCH ×2 (08:27→21:43)
[2017-03-06] MEDS: PREDNISONE 10 MG TABLET PO SCH (08:27)
[2017-03-06] MEDS: LEVETIRACETAM ORAL SOLN 500 MG/5 ML UDCUP PO SCH ×2 (08:27→21:44)
[2017-03-06] MEDS: CETIRIZINE 10 MG TABLET PO SCH (08:27)
--- NOTE | 2017-03-06 08:54 | PDOC PROGRESS REPORT ---
Subjective Progress Note for:: 03/06/17 Subjective:: Abdominal pain improved. No fever. Tolerating regular diet. Decreased drainage from around prior PEG tube site. No nausea or vomiting Physical Exam Vital Signs: Temp Pulse Resp BP Pulse Ox 98.9 F 113 H 16 116/75 99 03/06/17 08:14 03/06/17 08:14 03/06/17 08:14 03/06/17 08:14 03/06/17 08:14 Intake & Output 03/05/17 03/06/17 03/07/17 06:59 06:59 06:59 Intake Total 2018 1773 Balance 2018 1773 Weight 51.2 kg 51.3 kg GENERAL: No acute distress HEENT: Conjunctiva clear, nonicteric, moist mucous membranes, no JVD, midline trachea RESPIRATORY: Clear to auscultation bilaterally, no wheezes, no rhonchi CARDIAC: Regular rate and rhythm, no murmurs/gallops/rubs ABDOMEN: Soft, nondistended, mild tenderness around previous gastrostomy tube site EXTREMETIES: No edema, cyanosis, clubbing NEUROLOGIC: Alert, oriented to person/place/time, CN's grossly intact, no focal deficits SKIN: Induration/erythema surrounding gastrostomy tube site much improved from yesterday's exam PSYCH: Normal mood, normal affect Results Laboratory Results: 03/05/17 06:47 03/05/17 06:47 03/04/17 03/04/17 02:20 06:50 Troponin I < 0.012 < 0.012 Impressions: Abdomen X-Ray 03/03/17 16:16 IMPRESSION: Possible constipation. Chest/Abdomen CTA 03/03/17 16:55 IMPRESSION: No evidence for pulmonary embolic disease. No consolidations or pleural effusions are identified. Other findings as noted above Abdomen/Pelvis CT 03/04/17 00:00 IMPRESSION: Soft tissue density in the anterior abdominal wall around the gastric tube may represent postsurgical seroma/hematoma versus abscess. Moderate amount of stool in the colon. Intravenous contrast excretion in the bilateral renal collecting systems, ureters and in the urinary bladder. Please correlate with history of recent procedure. Nodular ground-glass opacities in the right lower lobe, may be secondary to acute infection/inflammation such as aspiration pneumonia. Atelectatic changes in the right middle lobe and bilateral lower lobes. Assessment & Plan - Diagnosis (1) Abdominal wall cellulitis Is this a current diagnosis for this admission?: YesPlan: Surgery discontinued gastrostomy tube. Discontinue IV Zosyn. Start Augmentin 500 mg 3 times daily. Hold Plaquenil for now. (2) Abdominal pain Qualifiers: Abdominal location: generalized Qualified Code(s): R10.84 - Generalized abdominal pain Is this a current diagnosis for this admission?: Yes (3) Anemia of chronic disease Is this a current diagnosis for this admission?: Yes (4) Antiphospholipid syndrome Is this a current diagnosis for this admission?: Yes (5) History of pulmonary embolism Is this a current diagnosis for this admission?: YesPlan: Arixtra 7.5 mg subcu daily. (6) Lupus (systemic lupus erythematosus) Qualifiers: Systemic lupus erythematosus type: unspecified Systemic lupus erythematosus organ involvement: unspecified Qualified Code(s): M32.9 - Systemic lupus erythematosus, unspecified Is this a current diagnosis for this admission?: YesPlan: Hold Plaquenil until infection under better control. Continue prednisone. Follow-up with Dr. Littlejohn of rheumatology after discharge. (7) UTI (urinary tract infection) Qualifiers: Urinary tract infection type: site unspecified Is this a current diagnosis for this admission?: YesPlan: Discontinue Zosyn. Start Augmentin. (8) Malnutrition Is this a current diagnosis for this admission?: YesPlan: Gastrostomy tube will be discontinued secondary to infection. Patient will have to be encouraged to take good oral intake. - Time Time Spent with patient: 25-34 minutes
[2017-03-06] MEDS: ZOLPIDEM TARTRATE 5 MG TABLET PO PRN (21:43)
[2017-03-07] MEDS: HYDROMORPHONE HCL INJ/PF 2 MG/ML AMPULE IV PRN ×3 (03:16→12:17)
[2017-03-07] MEDS: LANSOPRAZOLE 30 MG TAB.RAP.DR PO SCH (05:37)
[2017-03-07] MEDS: AMOXICILLIN TR/POT CLAVULANATE 500-125 MG TAB PO SCH (05:37)
[2017-03-07] MEDS: GABAPENTIN 300 MG CAPSULE PO SCH (05:37)
[2017-03-07] MEDS: PREDNISONE 10 MG TABLET PO SCH (07:52)
[2017-03-07] MEDS: CETIRIZINE 10 MG TABLET PO SCH (07:52)
[2017-03-07] MEDS: FONDAPARINUX SODIUM INJ 7.5 MG/0.6 ML DISP.SYRIN SUBCUT SCH (07:53)
[2017-03-07] MEDS: FLUTICASONE/SALMETEROL DISKUS 250-50 MCG/DOSE IH SCH (07:53)
[2017-03-07] MEDS: LEVETIRACETAM ORAL SOLN 500 MG/5 ML UDCUP PO SCH (07:54)
[2017-03-07 08:20] VITALS: BP 112/74
[2017-03-07 09:16] LABS: ABSOLUTE BASOPHILS # (AUTO) 0.1 10^3/uL (0.0-0.2); ABSOLUTE EOSINOPHILS # (AUTO) 0.1 10^3/uL (0.0-0.6); ABSOLUTE LYMPHOCYTES (AUTO) 1.7 10^3/uL (0.5-4.7); ABSOLUTE NEUT (AUTO) 3.6 10^3/uL (1.7-8.2); BASOPHILS % (AUTO) 1.9 % (0-2); HEMOGLOBIN 10.4 g/dL (12.0-15.5); HGB HCT DIFFERENCE -0.8; LYMPHOCYTES % (AUTO) 26.4 % (13-45); MEAN CORPUSCULAR HEMOGLOBIN 30.8 pg (27.0-33.4); MEAN CORPUSCULAR HGB CONC 32.6 g/dL (32.0-36.0); MEAN CORPUSCULAR VOLUME 94 fl (80-97); MONOCYTES % (AUTO) 14.9 % (3-13); RED BLOOD COUNT 3.39 10^6/uL (3.72-5.28); RED CELL DISTRIBUTION WIDTH 14.4 % (11.5-14.0); SEGMENTED NEUTROPHILS % (AUTO) 54.8 % (42-78); WHITE BLOOD COUNT 6.6 10^3/uL (4.0-10.5)
--- NOTE | 2017-03-07 09:31 | PDOC DISCHARGE SUMMARY ---
General - Admit/Disc Date/PCP Admission Date/Primary Care Provider: 03/03/17 23:30 BOB ELI MD Discharge Date: 03/07/17 - Discharge Diagnosis (1) Abdominal wall cellulitis Is this a current diagnosis for this admission?: Yes (2) Abdominal pain Is this a current diagnosis for this admission?: Yes (3) Anemia of chronic disease Is this a current diagnosis for this admission?: Yes (4) Antiphospholipid syndrome Is this a current diagnosis for this admission?: Yes (5) History of pulmonary embolism Is this a current diagnosis for this admission?: Yes (6) Lupus (systemic lupus erythematosus) Is this a current diagnosis for this admission?: Yes (7) UTI (urinary tract infection) Is this a current diagnosis for this admission?: Yes (8) Malnutrition Is this a current diagnosis for this admission?: Yes - Additional Information Resuscitation Status: Full Code Discharge Diet: Regular Discharge Activity: Activity As Tolerated Home Medications: Albuterol Sulfate [Ventolin HFA MDI 18 GM] 2 puff IH Q6HP PRN 03/03/17 Butalb/Acetaminophen/Caffeine [Fioricet (50-325-40 mg) Tablet] 1 tab PO QIDP PRN 03/03/17 Cetirizine HCl [Zyrtec 10 mg Tablet] 1 tab PO DAILY 03/03/17 Fluticasone/Salmeterol [Advair 250-50 Diskus 28 dose] 1 inh IH Q12 03/03/17 Fondaparinux Sodium [Arixtra] 7.5 mg SQ DAILY 03/03/17 Gabapentin [Neurontin 300 mg Capsule] 900 mg PO Q8 03/03/17 Ibuprofen [Motrin 800 mg Tablet] 800 mg PO TIDP PRN 03/03/17 Lansoprazole [Prevacid] 30 mg PO DAILY 03/03/17 Levetiracetam 750 mg PO Q12 03/03/17 Nystatin/Dexameth/Diphen [Magic Mouthwash] 10 ml PO Q6HP PRN 03/03/17 Ondansetron [Zofran Odt] 8 mg PO QIDP PRN 03/03/17 Prednisone [Deltasone 10 mg Tablet] 10 mg PO DAILY 03/03/17 Promethazine HCl [Phenergan 25 mg Tablet] 25 mg PO Q6HP PRN 03/03/17 Tizanidine HCl [Zanaflex 4 mg Tablet] 8 mg PO TIDP PRN 03/03/17 Zolpidem Tartrate [Ambien] 10 mg PO HSP PRN 03/03/17 Clobetasol Propionate/Emoll [Clobetasol Emollient 0.05% Crm] 1 applic TP BIDP PRN 03/04/17 Clonidine HCl [Catapres 0.3 mg Tablet] 0.3 mg PO Q12 03/04/17 Hydroxyzine HCl [Atarax 25 mg Tablet] 1 tab PO TIDP PRN 03/04/17 Mycophenolate Suspension 200mg/Ml 2.5 ml PO BID 03/04/17 Oxycodone HCl/Acetaminophen [Percocet 7.5-325 mg Tablet] 1 each PO QIDP PRN 10/20 Triamcinolone Acetonide [Kenalog in Orabase] 1 applic DT QIDP PRN 03/04/17 Amox Tr/Potassium Clavulanate [Augmentin "500" Tablet] 1 tab PO Q8 #30 tablet 03/07/17 History of Present Illness Patient complains of: PEG site drainage History of Present Illness: JOSE DUMONT is a 21 year old -[place] female with multiple underlying chronic medical problems, including systemic lupus, antiphospholipid syndrome, with prior DVT and pulmonary emboli, currently on Arixtra for same, history of heparin-induced thrombocytopenia, Chronic pain, who presents to the emergency room for evaluation of above multiple complaints. She is status post implantation of PEG tube 2 for combination of persistent weight loss, severe reflux, and dysphagia with virtually any p.o. intake, which according to patient, sometimes resulted in aspiration pneumonia. Second PEG tube implantation January 18 of this year at [facility]. Hospital Course Hospital Course: Patient was admitted with gastrostomy tube site infection/abscess. Surgery was consulted and patient was placed on IV antibiotics. Surgery discontinued gastrostomy tube at bedside. Induration and erythema around gastrostomy tube site improved significantly. Patient will complete course of oral antibiotics. She will need to follow-up with her primary care physician within the next week for reevaluation. She is to continue prednisone for now. I have advised her to hold Plaquenil for now secondary to infection until further advised by her approver Dr. Littlejohn. Patient was also found to have E. coli urinary tract infection. Organism sensitive to Augmentin. Physical Exam Vital Signs: Temp Pulse Resp BP Pulse Ox 98.7 F 119 H 16 112/74 100 03/07/17 07:50 03/07/17 07:50 03/07/17 07:50 03/07/17 07:50 03/07/17 07:50 Intake & Output 03/06/17 03/07/17 03/08/17 06:59 06:59 06:59 Intake Total 1774 8 Output Total 125 Balance 1771992 Weight 51.3 kg 45 kg GENERAL: No acute distress HEENT: Conjunctiva clear, nonicteric, moist mucous membranes, no JVD, midline trachea RESPIRATORY: Clear to auscultation bilaterally, no wheezes, no rhonchi CARDIAC: Regular rate and rhythm, no murmurs/gallops/rubs ABDOMEN: Soft, nondistended, mild tenderness around previous gastrostomy tube site EXTREMETIES: No edema, cyanosis, clubbing NEUROLOGIC: Alert, oriented to person/place/time, CN's grossly intact, no focal deficits SKIN: Induration/erythema surrounding gastrostomy tube site much improved from yesterday's exam PSYCH: Normal mood, normal affect Results Laboratory Results: 03/07/17 08:45 03/07/17 08:45 WBC 6.6 RBC 3.39 L Hgb 10.4 L Hct 32.0 L MCV 94 MCH 30.8 MCHC 32.6 RDW 14.4 H Plt Count 273 Seg Neutrophils % 54.8 Lymphocytes % 26.4 Monocytes % 14.9 H Eosinophils % 2.0 Basophils % 1.9 Absolute Neutrophils 3.6 Absolute Lymphocytes 1.7 Absolute Monocytes 1.0 Absolute Eosinophils 0.1 Absolute Basophils 0.1 03/04/17 03/04/17 02:20 06:50 Troponin I < 0.012 < 0.012 03/04/17 11:45 Gram Stain - Preliminary G Tube (Peg Tube) Wound Culture - Preliminary Yeast, Not Amie Albicans Gram Positive Cocci Clusters Group B Beta Streptococcus Skin Cris 03/03/17 19:52 Blood Culture - Preliminary Blood NO GROWTH AFTER 72 HOURS 03/03/17 18:40 Urine Culture - Final Clean Catch Midstream Escherichia Coli Group B Beta Streptococcus 03/03/17 17:20 Blood Culture - Preliminary Blood NO GROWTH AFTER 72 HOURS Impressions: Abdomen X-Ray 03/03/17 16:16 IMPRESSION: Possible constipation. Chest/Abdomen CTA 03/03/17 16:55 IMPRESSION: No evidence for pulmonary embolic disease. No consolidations or pleural effusions are identified. Other findings as noted above Abdomen/Pelvis CT 03/04/17 00:00 IMPRESSION: Soft tissue density in the anterior abdominal wall around the gastric tube may represent postsurgical seroma/hematoma versus abscess. Moderate amount of stool in the colon. Intravenous contrast excretion in the bilateral renal collecting systems, ureters and in the urinary bladder. Please correlate with history of recent procedure. Nodular ground-glass opacities in the right lower lobe, may be secondary to acute infection/inflammation such as aspiration pneumonia. Atelectatic changes in the right middle lobe and bilateral lower lobes. Qualifiers PATEINT BEING DISCHARGED WITH ANY OF THE FOLLOWING DIAGNOSIS?: No Plan Time Spent: Less than 30 Minutes
[2017-03-07 09:36] LABS: CARBON DIOXIDE 26 mmol/L (22-30); CHLORIDE 101 mmol/L (98-107)
[2017-03-07 09:38] LABS: BLOOD UREA NITROGEN 10 mg/dL (7-20); CALCIUM 9.2 mg/dL (8.4-10.2); GLUCOSE 100 mg/dL (75-110); POTASSIUM 4.5 mmol/L (3.6-5.0)
[2017-03-07 09:39] LABS: ANION GAP 12 (5-19); SODIUM 138.9 mmol/L (137-145)
[2017-03-07] MEDS: CLONIDINE HCL 0.1 MG TABLET PO SCH (12:19)
== END 2017-03-07 13:14 | disposition home or self-care (01) | DRG 394 ==
LOC: ER 15:32 → UNDOADMIN 21:45 → EH 21:45 → 3S 03-04 00:40 → EH 03-04 00:40
PROVIDERS: ADMIT Family Medicine; ATTEND Family Medicine
PROC: 0DP6XUZ Removal of Feeding Device from Stomach, External Approach (ICD-10-PCS; principal; 2017-03-04)
DX: K94.22 Gastrostomy infection (principal); L03.311 Cellulitis of abdominal wall; N39.0 Urinary tract infection, site not specified; D68.61 Antiphospholipid syndrome; E46 Unspecified protein-calorie malnutrition; Z68.1 Body mass index [BMI] 19.9 or less, adult; I16.0 Hypertensive urgency; B95.1 Streptococcus, group B, as the cause of diseases classified elsewhere; Y83.3 Surgical operation with formation of external stoma as the cause of abnormal reaction of the patient, or of later complication, without mention of misadventure at the time of the procedure; R00.0 Tachycardia, unspecified; M32.9 Systemic lupus erythematosus, unspecified; D63.8 Anemia in other chronic diseases classified elsewhere; R91.1 Solitary pulmonary nodule; K59.00 Constipation, unspecified; R62.7 Adult failure to thrive; B96.20 Unspecified Escherichia coli [E. coli] as the cause of diseases classified elsewhere; B95.61 Methicillin susceptible Staphylococcus aureus infection as the cause of diseases classified elsewhere; B96.89 Other specified bacterial agents as the cause of diseases classified elsewhere; Z86.718 Personal history of other venous thrombosis and embolism; Z86.711 Personal history of pulmonary embolism; Z79.1 Long term (current) use of non-steroidal anti-inflammatories (NSAID); Z79.51 Long term (current) use of inhaled steroids; Z79.899 Other long term (current) drug therapy; Z88.2 Allergy status to sulfonamides; Z88.5 Allergy status to narcotic agent; Z91.013 Allergy to seafood
CPT/HCPCS: 36415; 71275; 74020; 74176; 80048; 80053; 80307; 81001; 81025; 82550; 83605; 83690; 83735; 84484; 85025; 85610; 85730; 87040; 87070; 87077; 87086; 87088; 87186; 87205; 93005; 93010; 94799; 96361; 96365; 96375; 96376; 99285; J1170; J1652; J2543; J3370; J3490; J7030; J7512; S0119

== ENCOUNTER 2017-04-01 15:48 | Inpatient (IN) | payer MEDICARE, MEDICAID ==
--- NOTE | 2017-04-01 16:46 | ER Document Report ---
ED Medical Screen (RME) - General Chief Complaint: Abdominal Pain Stated Complaint: NAUSEA/VOMITING/PAIN IN VAGINAL AREA TRAVEL OUTSIDE OF THE [place] IN LAST 30 DAYS: No - HPI Notes: 04/01/17 16:46 Nausea vomiting pain in the private region. - Related Data Allergies/Adverse Reactions: shellfish derived Allergy (Severe, Verified 01/31/17 21:33) Anaphylaxis ketorolac tromethamine [From Toradol] Allergy (Intermediate, Verified 01/31/17 21:33) Hives morphine [Morphine] Allergy (Intermediate, Verified 01/31/17 21:33) Hives sulfamethoxazole [From Bactrim] Allergy (Unknown, Verified 01/31/17 21:33) Pruritis trimethoprim [From Bactrim] Allergy (Unknown, Verified 01/31/17 21:33) Pruritis belimumab [From Benlysta] Allergy (Verified 01/31/17 21:33) rash Past Medical History - Social History Chew tobacco use (# tins/day): No Frequency of alcohol use: None Drug Abuse: None - Past Medical History Cardiac Medical History: Reports: Hx DVT, Hx Hypertension, Hx Pulmonary Embolism Denies: Hx Coronary Artery Disease, Hx Heart Attack, Hx Hypercholesterolemia Pulmonary Medical History: Reports: Hx Asthma - Pediatric, Hx Pneumonia Denies: Hx Bronchitis, Hx COPD, Hx Tuberculosis Neurological Medical History: Reports: Hx Migraine, Hx Seizures. Denies: Hx Cerebrovascular Accident Endocrine Medical History: Denies: Hx Diabetes Mellitus Type 1, Hx Diabetes Mellitus Type 2, Hx Hyperthyroidism, Hx Hypothyroidism Renal/ Medical History: Denies: Hx Peritoneal Dialysis GI Medical History: Reports: Hx Gastritis, Hx Gastroesophageal Reflux Disease, Hx Ulcer, Hx Endoscopy. 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 Denies: Hx Hepatitis Past Surgical History: Reports: Hx Abdominal Surgery - PEG tube, Other - PEG placement 2, Port-A-Cath. Denies: Hx Hysterectomy - Immunizations Immunizations up to date: Yes Hx Diphtheria, Pertussis, Tetanus Vaccination: Yes Review of Systems - Review of Systems Gastrointestinal: Nausea, Vomiting Physical Exam - Vital signs Vitals: Temp Pulse Resp BP Pulse Ox 98.9 F 112 H 18 175/134 H 99 06/29/17 15:52 04/01/17 15:52 04/01/17 15:52 04/01/17 15:52 04/01/17 15:52 - Respiratory Respiratory status: No respiratory distress Chest status: Nontender Breath sounds: Normal Chest palpation: Normal Course - Vital Signs Vital signs: Temp Pulse Resp BP Pulse Ox 98.9 F 112 H 18 175/134 H 99 04/01/17 15:52 04/01/17 15:52 04/01/17 15:52 04/01/17 15:52 04/01/17 15:52 - Laboratory Result Diagrams: 04/01/17 16:25 04/01/17 16:25
[2017-04-01] MEDS ORDERED: NORMAL SALINE 1000 ML 1,000 ML IV ONE (16:52)
[2017-04-01] MEDS ORDERED: ONDANSETRON HCL INJ/PF 4 MG/2 ML SDV IV ONE (17:06)
--- NOTE | 2017-04-01 17:07 | ER Document Report ---
ED GI/ - General Mode of Arrival: Ambulatory Information source: Patient TRAVEL OUTSIDE OF THE [place] IN LAST 30 DAYS: No - HPI Patient complains to provider of: Abdominal pain, Other - vaginal pain Onset: Last week - last week Location: Vaginal, Other - see notes above Associated symptoms: Other - see notes above <BOAZ MIN - Last Filed: 04/01/17 19:54> <TONI KEBEDE - Last Filed: 04/01/17 22:30> - General Chief Complaint: Abdominal Pain Stated Complaint: NAUSEA/VOMITING/PAIN IN VAGINAL AREA Time Seen by Provider: 04/01/17 16:49 Notes: 21 year old female with history of lupus and recent hospitalization secondary to G-tube infection, abdominal wall cellulitis, and UTI presents to the ED complaining of abdominal pain secondary to possible infection due to G-tube removal that started last week. Patient is also complaining of vaginal swelling , vaginal pain, and vomiting that has worsened over this week and reports that vaginal pain is associated with her lupus flares. Patient reports that she has not had a follow up appointment with her surgeon, but states that her home health nurse has seen the surgical sites. The dressings were changed last night. Patient denies fever. (BOAZ MIN) - Related Data Allergies/Adverse Reactions: shellfish derived Allergy (Severe, Verified 04/01/17 21:19) Anaphylaxis ketorolac tromethamine [From Toradol] Allergy (Intermediate, Verified 04/01/17 21:19) Hives morphine [Morphine] Allergy (Intermediate, Verified 04/01/17 21:19) Hives sulfamethoxazole [From Bactrim] Allergy (Unknown, Verified 04/01/17 21:19) Pruritis trimethoprim [From Bactrim] Allergy (Unknown, Verified 04/01/17 21:19) Pruritis belimumab [From Benlysta] Allergy (Verified 04/01/17 21:19) rash heparin Adverse Reaction (Verified 04/01/17 21:19) Hx HIT Home Medications: Current Home Medications Albuterol Sulfate [Proair HFA] 2 puff IH Q6HP PRN 04/01/17 [History] Butalb/Acetaminophen/Caffeine [Fioricet (50-325-40 mg) Tablet] 1 tab PO QIDP PRN 04/01/17 [History] Cetirizine HCl [Zyrtec 10 mg Tablet] 10 mg PO DAILY 04/01/17 [History] Clobetasol Propionate/Emoll [Clobetasol Emollient 0.05% Crm] 1 applic TP BIDP PRN 04/01/17 [History] Clonidine HCl [Catapres 0.3 mg Tablet] 0.3 mg PO Q12 04/01/17 [History] Fluticasone/Salmeterol [Advair 250-50 Diskus 28 dose] 1 puff IH Q12 04/01/17 [ History] Fondaparinux Sodium [Arixtra] 7.5 mg SUBCUT DAILY 04/01/17 [History] Gabapentin [Neurontin 300 mg Capsule] 900 mg PO Q8 04/01/17 [History] Hydroxyzine HCl [Atarax 25 mg Tablet] 25 mg PO TIDP PRN 04/01/17 [History] Ibuprofen [Motrin 800 mg Tablet] 800 mg PO TIDP PRN 04/01/17 [History] Lansoprazole [Prevacid] 30 mg PO DAILY 04/01/17 [History] Levetiracetam [Keppra] 750 mg PO Q12 04/01/17 [History] Mycophenolate Mofetil 2.5 ml PO BID 04/01/17 [History] Nystatin/Dexameth/Diphen [Magic Mouthwash] 10 ml PO Q6HP PRN 04/01/17 [History] Ondansetron [Zofran Odt] 8 mg PO QIDP PRN 04/01/17 [History] Oxycodone HCl/Acetaminophen [Percocet 7.5-325 mg Tablet] 1 tab PO DAILY [History] Prednisone [Deltasone 10 mg Tablet] 10 mg PO DAILY 04/01/17 [History] Promethazine HCl [Phenergan 25 mg Tablet] 25 mg PO Q6HP PRN 04/01/17 [History] Tizanidine HCl [Zanaflex 4 mg Tablet] 8 mg PO TIDP PRN 04/01/17 [History] Triamcinolone Acetonide [Kenalog in Orabase] 1 applic DT QIDP PRN 04/01/17 [ History] Zolpidem Tartrate [Ambien] 10 mg PO HSP PRN 06/29/17 [History] Past Medical History - General Information source: Patient - Social History Smoking Status: Never Smoker Chew tobacco use (# tins/day): No Frequency of alcohol use: None Drug Abuse: None Family History: Reviewed & Not Pertinent, Other - Lupus-mother Patient has suicidal ideation: No Patient has homicidal ideation: No - Past Medical History Cardiac Medical History: Reports: Hx DVT, Hx Hypertension, Hx Pulmonary Embolism Pulmonary Medical History: Reports: Hx Asthma - Pediatric, Hx Pneumonia Neurological Medical History: Reports: Hx Migraine, Hx Seizures Renal/ Medical History: Denies: Hx Peritoneal Dialysis GI Medical History: Reports: Hx Gastritis, Hx Gastroesophageal Reflux Disease, Hx Ulcer, Hx Endoscopy Musculoskeltal Medical History: 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 denies: Fever EENT: No symptoms reported Cardiovascular: No symptoms reported Respiratory: No symptoms reported Gastrointestinal: See HPI, Abdominal pain, Vomiting Genitourinary: No symptoms reported Female Genitourinary: See HPI, Other - vaginal swelling and pain Musculoskeletal: No symptoms reported Skin: No symptoms reported Hematologic/Lymphatic: No symptoms reported Neurological/Psychological: No symptoms reported -: Yes All other systems reviewed and negative <BOAZ MIN - Last Filed: 04/01/17 19:54> Course - Laboratory Result Diagrams: 04/01/17 17:25 04/01/17 17:25 - Consults Dr. Redman Time consulted: 18:14 <BOAZ MIN - Last Filed: 04/01/17 19:54> - Laboratory Result Diagrams: 04/01/17 17:25 04/01/17 17:25 <TONI KEBEDE - Last Filed: 04/01/17 22:30> - Re-evaluation Re-evalutation: 04/01/17 Patient is a 21-year-old female who comes in with pain, nausea vomiting, pain in her abdominal wall, and urinary tract infection symptoms. Patient does have a UTI. Patient had a recent gastrostomy tube removed. Patient does have a nonhealing wound with foul odor to it. No evidence for intra-abdominal abscess on CT. Patient will be started on antibiotics and referred to the hospitalist service for admission. Stable at this time otherwise. (TONI KEBEDE) - Vital Signs Vital signs: Temp Pulse Resp BP Pulse Ox 98.8 F 115 H 20 150/120 H 99 04/01/17 21:30 04/01/17 21:30 04/01/17 21:30 04/01/17 21:39 04/01/17 21:30 - Laboratory Laboratory results interpreted by me: 04/01/17 04/01/17 04/01/17 17:25 17:25 17:25 RBC 3.39 L Hgb 10.3 L Hct 32.2 L MCHC 31.9 L RDW 14.3 H APTT Potassium 3.5 L Creatinine 0.51 L Alkaline Phosphatase 141 H Total Protein 10.0 H Albumin 3.4 L Urine Protein 30 H Ur Leukocyte Esterase LARGE H 04/01/17 17:25 RBC Hgb Hct MCHC RDW APTT 36.2 H Potassium Creatinine Alkaline Phosphatase Total Protein Albumin Urine Protein Ur Leukocyte Esterase - Consults Dr. Redman Reason for consultation: 04/01/17 18:14 Patient was discussed with Dr. Redman and agrees that she needs to be admitted medically. (BOAZ MIN) Discharge <BOAZ MIN - Last Filed: 04/01/17 19:54> - Discharge Admitting Provider: Anum Redman Unit Admitted: [facility] <TONI KEBEDE - Last Filed: 04/01/17 22:30> - Discharge Clinical Impression: Abdominal wall cellulitis Nausea and vomiting Qualifiers: Vomiting type: unspecified Vomiting Intractability: non-intractable Qualified Code(s): R11.2 - Nausea with vomiting, unspecified Urinary tract infection Qualifiers: Urinary tract infection type: site unspecified Hematuria presence: with hematuria Qualified Code(s): N39.0 - Urinary tract infection, site not specified ; R31.9 - Hematuria, unspecified Condition: Stable Disposition: ADMITTED INPATIENT Scribe Attestation: 04/01/17 22:30 I personally performed the services described in the documentation, reviewed and edited the documentation which was dictated to the scribe in my presence, and it accurately records my words and actions. (TONI KEBEDE) Scribe Documentation - Scribe Written by Scribe:: Zeyad Stallworth, 04/01/2017 1903 acting as scribe for :: Deja <BOAZ MIN - Last Filed: 04/01/17 19:54>
[2017-04-01 17:40] LABS: ABSOLUTE LYMPHOCYTES (AUTO) 1.4 10^3/uL (0.5-4.7); ABSOLUTE MONOCYTES (AUTO) 0.9 10^3/uL (0.1-1.4); ABSOLUTE NEUT (AUTO) 5.6 10^3/uL (1.7-8.2); BASOPHILS % (AUTO) 0.5 % (0-2); EOSINOPHILS % (AUTO) 0.6 % (0-6); HEMATOCRIT 32.2 % (36.0-47.0); HEMOGLOBIN 10.3 g/dL (12.0-15.5); HGB HCT DIFFERENCE -1.3; LYMPHOCYTES % (AUTO) 17.7 % (13-45); MEAN CORPUSCULAR HEMOGLOBIN 30.3 pg (27.0-33.4); MEAN CORPUSCULAR HGB CONC 31.9 g/dL (32.0-36.0); MEAN CORPUSCULAR VOLUME 95 fl (80-97); MONOCYTES % (AUTO) 11.6 % (3-13); RED BLOOD COUNT 3.39 10^6/uL (3.72-5.28); RED CELL DISTRIBUTION WIDTH 14.3 % (11.5-14.0); SEGMENTED NEUTROPHILS % (AUTO) 69.6 % (42-78); WHITE BLOOD COUNT 8.1 10^3/uL (4.0-10.5)
[2017-04-01] MEDS ORDERED: OXYCODONE-ACETAMINOPHEN 5-325 MG TABLET PO ONE (17:46)
[2017-04-01 17:49] LABS: PROTHROMBIN TIME 14.1 SEC (11.4-15.4)
[2017-04-01 17:50] LABS: PARTIAL THROMBOPLASTIN TIME 36.2 SEC (23.5-35.8)
[2017-04-01 17:52] LABS: ALANINE AMINOTRANSFERASE 15 U/L (9-52); ALBUMIN 3.4 g/dL (3.5-5.0); ALKALINE PHOSPHATASE 141 U/L (38-126); ANION GAP 13 (5-19); ASPARTATE AMINO TRANSFERASE 17 U/L (14-36); BILIRUBIN,DIRECT 0.3 mg/dL (0.0-0.4); BILIRUBIN,TOTAL 0.3 mg/dL (0.2-1.3); BLOOD UREA NITROGEN 9 mg/dL (7-20); CALCIUM 8.6 mg/dL (8.4-10.2); CARBON DIOXIDE 22 mmol/L (22-30); CHLORIDE 106 mmol/L (98-107); CREATININE RESULT 0.51 mg/dL (0.52-1.25); GLUCOSE 88 mg/dL (75-110); LIPASE 32.2 U/L (23-300); POTASSIUM 3.5 mmol/L (3.6-5.0); SODIUM 140.8 mmol/L (137-145)
[2017-04-01 17:56] LABS: APPEARANCE,URINE SLIGHTLY-CLOUDY; BILIRUBIN,URINE NEGATIVE (NEGATIVE); GLUCOSE, URINE NEGATIVE (NEGATIVE); KETONES,URINE NEGATIVE (NEGATIVE); LEUKOCYTE ESTERASE,URINE LARGE (NEGATIVE); NITRITE,URINE NEGATIVE (NEGATIVE); PROTEIN,URINE 30 mg/dL (NEGATIVE); URINE SPECIFIC GRAVITY 1.012; UROBILINOGEN,URINE NEGATIVE mg/dL (<2.0)
[2017-04-01] MEDS ORDERED: HYDROMORPHONE HCL INJ/PF 2 MG/ML AMPULE IV ONE ×2 (18:11→23:35)
[2017-04-01] MEDS ORDERED: VANCOMYCIN HCL INJ 1000 MG VIAL IV ONE (18:16)
[2017-04-01] MEDS ORDERED: PIPERACILLIN/TAZOBACTAM 3.375 GM VIAL IV ONE (18:16)
--- NOTE | 2017-04-01 18:49 | RADIOLOGY REPORT (SQ) ---
EXAM DESCRIPTION: CT ABD/PELVIS WITH IV ONLY COMPLETED DATE/TIME: 04/01/2017 6:34 pm REASON FOR STUDY: evaluate for abd wall abscess COMPARISON: None. TECHNIQUE: CT scan of the abdomen and pelvis performed using helical scanning technique with dynamic intravenous contrast injection. No oral contrast. Images reviewed with lung, soft tissue, and bone windows. Reconstructed coronal and sagittal MPR images reviewed. Delayed images for evaluation of the urinary system also acquired. All images stored on PACS. All CT scanners at this facility use dose modulation, iterative reconstruction, and/or weight based d osing when appropriate to reduce radiation dose to as low as reasonably achievable (ALARA). [facility]: Dose Right [facility]: CareDose [facility]: Dose Right [facility]: Teradose 4D [facility]: [address] CONTRAST TYPE AND DOSE: contrast/concentration: Isovue 370.00 mg/ml; Total Contrast Delivered: 54.0 ml; Total Saline Delivered: 62.0 ml RENAL FUNCTION: Creatinine 0.5 BUN 9 RADIATION DOSE: Up-to-date CT equipment and radiation dose reduction techniques were employed. CTDIv ol: NaN - NaN mGy. DLP: 0 mGy-cm.. LIMITATIONS: None. FINDINGS: LOWER CHEST: No significant findings. No nodules or infiltrates. LIVER: Normal size. No masses. No dilated ducts. SPLEEN: Normal size. No focal lesions. PANCREAS: No masses. No significant calcifications. No adjacent inflammation or peripancreatic fluid collections. Pancreatic duct not dilated. GALLBLADDER: No identified stones by CT criteria. No inflammatory changes to suggest cholecystitis. ADRENAL GLANDS: No significant masses or asymmetry. RIGHT KIDNEY AND URETER: No solid masses. No significant calcifications. No hydronephrosis or hyd roureter. LEFT KIDNEY AND URETER: No solid masses. No significant calcifications. No hydronephrosis or hydr oureter. AORTA AND VESSELS: No aneurysm. No dissection. Renal arteries, SMA, celiac without stenosis. RETROPERITONEUM: No retroperitoneal adenopathy, hemorrhage or masses. BOWEL AND PERITONEAL CAVITY: The bowel is normal. There is what appears to be a feeding tube track w ith no feeding tube in it. There is no abscess associated with this. APPENDIX: Normal. PELVIS: The urinary bladder is distended. There is no adnexal mass or fluid collection. ABDOMINAL WALL: No masses. No hernias. BONES: Compression changes at T11, L1, and L4 that do not appear acute. OTHER: No other significant finding. IMPRESSION: 1. There is no evidence of a subcutaneous abscess at the feeding tube site. 2. There are chronic compression changes. TECHNICAL DOCUMENTATION: JOB ID: [id number] Quality ID # [id number]: Final reports with documentation of one or more dose reduction techniques (e.g., Au tomated exposure control, adjustment of the mA and/or kV according to patient size, use of iterative reconstruction technique) 2010 [email or web address]- All Rights Reserved
[2017-04-01] MEDS ORDERED: ALBUTEROL SULFATE HFA (90 MCG/PUFF) 8 GM MDI (1 MDI/ER DISP) IH PRN (20:34)
[2017-04-01] MEDS ORDERED: (PENDING PHARMACY ID) (Zolpidem Tartrate [Ambien] 5 MG) PO PRN (20:34)
[2017-04-01] MEDS ORDERED: PROMETHAZINE HCL 25 MG TABLET PO PRN (20:40)
[2017-04-01] MEDS ORDERED: VANCOMYCIN HCL 0 MG in DEXTROSE 5%-WATER 250 ML IV NR (20:45)
[2017-04-01] MEDS ORDERED: OXYCODONE HCL IR 5 MG TABLET PO PRN (20:46)
[2017-04-01] MEDS ORDERED: ACETAMINOPHEN 325 MG TABLET PO PRN (20:46)
[2017-04-01] MEDS ORDERED: TIZANIDINE HCL 4 MG TABLET PO PRN (20:51)
[2017-04-01] MEDS ORDERED: ALBUTEROL SULFATE HFA (90 MCG/PUFF) 200 PUFF/8.5 GM MDI IH PRN (20:53)
[2017-04-01] MEDS: CLONIDINE HCL 0.2 MG TABLET PO SCH (21:47)
[2017-04-01] MEDS ORDERED: (PENDING PHARMACY ID) (Levetiracetam [Keppra] 750 MG) PO SCH (22:00)
[2017-04-01] MEDS ORDERED: LEVETIRACETAM 500 MG TABLET PO SCH (22:00)
[2017-04-01] MEDS ORDERED: (PENDING PHARMACY ID) (Clonidine Hcl [Catapres 0.3 Mg Tablet] 0.3 MG) PO SCH (22:00)
[2017-04-01] MEDS ORDERED: VANCOMYCIN HCL 750 MG in DEXTROSE 5%-WATER 250 ML IV SCH (22:00)
[2017-04-01] MEDS ORDERED: PROMETHAZINE HCL 25 MG SUPP.RECT PR PRN (22:05)
[2017-04-01] MEDS ORDERED: ENALAPRILAT DIHYDRATE INJ/PF 1.25 MG/1 ML SDV IV PRN (22:13)
[2017-04-01] MEDS ORDERED: POTASSI CL 20 MEQ/D5NS 1L 1,000 ML IV PRN (22:16)
[2017-04-01] MEDS ORDERED: POTASSI CL 20 MEQ/50 ML RIDER 20 MEQ/50 ML RTUPB IV ONE (22:30)
[2017-04-01] MEDS ORDERED: LEVETIRACETAM INJ/PF 500 MG/5 ML SDV IV SCH ×2 (22:30)
[2017-04-01] MEDS ORDERED: LEVETIRACETAM 500 MG/NACL-ISO 500 MG/100 ML RTUPB IV ONE (22:30)
[2017-04-01] MEDS ORDERED: LEVETIRACETAM INJ/PF 500 MG/5 ML SDV IV ONE (22:45)
[2017-04-01 22:53] LABS: ADD ON TESTING BLD IN LAB ACKNOWLEDGE
[2017-04-01] MEDS ORDERED: CLONIDINE 0.3 MG/24 HR PATCH.TDWK TD SCH (23:00)
[2017-04-01] MEDS: GABAPENTIN 300 MG CAPSULE PO SCH (23:01)
[2017-04-01 23:12] LABS: MAGNESIUM 1.7 mg/dL (1.6-2.3)
[2017-04-02] MEDS: FLUTICASONE/SALMETEROL DISKUS 250-50 MCG/DOSE IH SCH ×3 (01:07→23:15)
[2017-04-02] MEDS: HYDROMORPHONE HCL INJ/PF 2 MG/ML AMPULE IV PRN ×6 (02:22→23:44)
[2017-04-02] MEDS: CEFAZOLIN 1 GM/D5W RTU 50 ML IV SCH ×3 (02:23→23:14)
[2017-04-02 02:38] LABS: ABSOLUTE EOSINOPHILS # (AUTO) 0.1 10^3/uL (0.0-0.6); ABSOLUTE LYMPHOCYTES (AUTO) 1.3 10^3/uL (0.5-4.7); ABSOLUTE MONOCYTES (AUTO) 0.9 10^3/uL (0.1-1.4); ABSOLUTE NEUT (AUTO) 4.8 10^3/uL (1.7-8.2); BASOPHILS % (AUTO) 0.5 % (0-2); EOSINOPHILS % (AUTO) 1.4 % (0-6); HEMATOCRIT 29.8 % (36.0-47.0); HEMOGLOBIN 9.6 g/dL (12.0-15.5); LYMPHOCYTES % (AUTO) 18.4 % (13-45); MEAN CORPUSCULAR HGB CONC 32.2 g/dL (32.0-36.0); MEAN CORPUSCULAR VOLUME 93 fl (80-97); MONOCYTES % (AUTO) 12.5 % (3-13); RED CELL DISTRIBUTION WIDTH 14.3 % (11.5-14.0); SEGMENTED NEUTROPHILS % (AUTO) 67.2 % (42-78); WHITE BLOOD COUNT 7.1 10^3/uL (4.0-10.5)
[2017-04-02 02:54] LABS: ALANINE AMINOTRANSFERASE 21 U/L (9-52); ALBUMIN 2.9 g/dL (3.5-5.0); ALKALINE PHOSPHATASE 111 U/L (38-126); ANION GAP 10 (5-19); ASPARTATE AMINO TRANSFERASE 19 U/L (14-36); BILIRUBIN,DIRECT 0.2 mg/dL (0.0-0.4); BILIRUBIN,TOTAL 0.2 mg/dL (0.2-1.3); BLOOD UREA NITROGEN 5 mg/dL (7-20); CALCIUM 8.6 mg/dL (8.4-10.2); CARBON DIOXIDE 24 mmol/L (22-30); CHLORIDE 106 mmol/L (98-107); CREATININE RESULT 0.38 mg/dL (0.52-1.25); GLUCOSE 96 mg/dL (75-110); LIPASE 19.6 U/L (23-300); SODIUM 140.1 mmol/L (137-145); TOTAL PROTEIN 8.8 g/dL (6.3-8.2)
[2017-04-02 02:58] LABS: POTASSIUM 3.8 mmol/L (3.6-5.0)
[2017-04-02] MEDS: GABAPENTIN 300 MG CAPSULE PO SCH ×3 (06:26→23:13)
[2017-04-02] MEDS ORDERED: (PENDING PHARMACY ID) (Oxycodone Hcl/Acetaminophen [Percocet 7.5-325 Mg Tablet] 1 TAB) PO PRN (07:47)
[2017-04-02] MEDS ORDERED: OXYCODONE HCL IR 5 MG TABLET PO PRN ×2 (08:57→09:00)
[2017-04-02] MEDS ORDERED: (PENDING PHARMACY ID) (Lansoprazole [Prevacid] 30 MG) PO SCH (10:00)
[2017-04-02] MEDS ORDERED: MYCOPHENOLATE MOFETIL PO SCH (10:00)
[2017-04-02] MEDS: LANSOPRAZOLE 30 MG TAB.RAP.DR PO SCH (10:35)
[2017-04-02] MEDS: VANCOMYCIN HCL 750 MG in DEXTROSE 5%-WATER 250 ML IV SCH ×2 (10:35→18:27)
[2017-04-02] MEDS: PREDNISONE 10 MG TABLET PO SCH (11:31)
[2017-04-02] MEDS: FONDAPARINUX SODIUM INJ 7.5 MG/0.6 ML DISP.SYRIN SUBCUT SCH (11:32)
[2017-04-02] MEDS ORDERED: LEVETIRACETAM 500 MG TABLET PO ONE (11:45)
[2017-04-02] MEDS ORDERED: (PENDING PHARMACY ID) (Hydroxyzine Hcl [Atarax 25 Mg Tablet] 25 MG) PO PRN (14:36)
[2017-04-02] MEDS ORDERED: (PENDING PHARMACY ID) (Clobetasol Propionate/Emoll [Clobetasol Emollient 0.05% Crm] 1 APPL TP PRN (14:36)
--- NOTE | 2017-04-02 14:39 | PDOC PROGRESS REPORT ---
Subjective Progress Note for:: 04/02/17 Subjective:: Patient's pain is now controlled. She does have occasional nausea. She has been having some vaginal discharge since being on antibiotics recently. She is not sexually active. Patient denies fever, chills, headache, new focal weakness, chest pain, shortness of breath, abdominal pain, nausea, vomiting, diarrhea, constipation. Physical Exam Vital Signs: Temp Pulse Resp BP Pulse Ox 98.3 F 105 H 18 122/86 H 97 04/02/17 11:05 04/02/17 11:05 04/02/17 11:05 04/02/17 11:05 04/02/17 11:05 Intake & Output 04/01/17 04/02/17 04/03/17 06:59 06:59 06:59 Intake Total 600 Output Total 1 Balance 599 Weight 50.9 kg GENERAL: No acute distress HEENT: Conjunctiva clear, nonicteric, moist mucous membranes, no JVD, midline trachea RESPIRATORY: Clear to auscultation bilaterally, no wheezes, no rhonchi CARDIAC: Regular rate and rhythm, no murmurs/gallops/rubs ABDOMEN: Soft, nondistended, nontender, positive bowel sounds, no rebound, no guarding EXTREMETIES: No edema, cyanosis, clubbing NEUROLOGIC: Alert, oriented to person/place/time, CN's grossly intact, no focal deficits SKIN: 1.5 cm shallow ulcerated on a prior gastrostomy site, no fluctuance, minimal erythema PSYCH: Normal mood, normal affect Results Laboratory Results: 04/02/17 02:25 04/02/17 02:25 04/01/17 04/02/17 04/02/17 22:38 02:25 02:25 WBC 7.1 RBC 3.20 L Hgb 9.6 L Hct 29.8 L MCV 93 MCH 30.0 MCHC 32.2 RDW 14.3 H Plt Count 258 Seg Neutrophils % 67.2 Lymphocytes % 18.4 Monocytes % 12.5 Eosinophils % 1.4 Basophils % 0.5 Absolute Neutrophils 4.8 Absolute Lymphocytes 1.3 Absolute Monocytes 0.9 Absolute Eosinophils 0.1 Absolute Basophils 0.0 Sodium 140.1 Potassium 3.8 Chloride 106 Carbon Dioxide 24 Anion Gap 10 BUN 5 L Creatinine 0.38 L Est GFR ( Amer) > 60 Est GFR (Non-Af Amer) > 60 Glucose 96 Calcium 8.6 Magnesium 1.7 Total Bilirubin 0.2 AST 19 ALT 21 Alkaline Phosphatase 111 Total Protein 8.8 H Albumin 2.9 L Lipase 19.6 L Impressions: Abdomen/Pelvis CT 04/01/17 18:01 IMPRESSION: 1. There is no evidence of a subcutaneous abscess at the feeding tube site. 2. There are chronic compression changes. Assessment & Plan - Diagnosis (1) Abdominal wall cellulitis Is this a current diagnosis for this admission?: YesPlan: Continue IV Ancef for now. (2) Open abdominal wall wound Is this a current diagnosis for this admission?: YesPlan: Continue dry dressing changes. Refer patient to wound clinic as an outpatient. (3) UTI (urinary tract infection) Qualifiers: Urinary tract infection type: site unspecified Hematuria presence: with hematuria Qualified Code(s): N39.0 - Urinary tract infection, site not specified Is this a current diagnosis for this admission?: YesPlan: Ancef pending culture. (4) Hypertension Is this a current diagnosis for this admission?: YesPlan: Continue clonidine. (5) Malnutrition Is this a current diagnosis for this admission?: YesPlan: Continue regular diet with Ensure supplements. (6) Anemia of chronic disease Is this a current diagnosis for this admission?: Yes (7) Antiphospholipid syndrome Is this a current diagnosis for this admission?: Yes (8) HIT (heparin-induced thrombocytopenia) Is this a current diagnosis for this admission?: Yes (9) History of pulmonary embolism Is this a current diagnosis for this admission?: YesPlan: Continue anticoagulation with Arixtra. (10) Lupus (systemic lupus erythematosus) Qualifiers: Is this a current diagnosis for this admission?: Yes (11) Seizure Is this a current diagnosis for this admission?: YesPlan: Continue Keppra. (12) Vaginal discharge Is this a current diagnosis for this admission?: YesPlan: Patient is not sexually active. Likely yeast infection given recent antibiotic usage and chronic prednisone therapy. Treat with one-time dose of Diflucan 150 mg daily. If this does not resolve culture. - Time Time Spent with patient: 35 or more minutes
[2017-04-02] MEDS: PROMETHAZINE HCL 25 MG TABLET PO PRN (14:59)
[2017-04-02] MEDS ORDERED: FLUCONAZOLE 100 MG TABLET PO ONE (15:00)
[2017-04-02] MEDS ORDERED: HYDROXYZINE HCL 10 MG TABLET PO PRN (15:30)
[2017-04-02] MEDS ORDERED: ONDANSETRON 4 MG TAB.RAPDIS PO PRN (15:30)
[2017-04-02] MEDS: LEVETIRACETAM 500 MG TABLET PO SCH (23:13)
[2017-04-02] MEDS: CLONIDINE HCL 0.2 MG TABLET PO SCH (23:13)
[2017-04-02] MEDS: ZOLPIDEM TARTRATE 5 MG TABLET PO PRN (23:44)
[2017-04-03] MEDS: VANCOMYCIN HCL 750 MG in DEXTROSE 5%-WATER 250 ML IV SCH ×2 (02:09→10:26)
[2017-04-03] MEDS: CEFAZOLIN 1 GM/D5W RTU 50 ML IV SCH ×3 (05:41→21:40)
[2017-04-03] MEDS: GABAPENTIN 300 MG CAPSULE PO SCH ×3 (05:41→21:39)
[2017-04-03] MEDS: HYDROMORPHONE HCL INJ/PF 2 MG/ML AMPULE IV PRN ×4 (05:47→18:56)
[2017-04-03] MEDS: FONDAPARINUX SODIUM INJ 7.5 MG/0.6 ML DISP.SYRIN SUBCUT SCH (10:24)
[2017-04-03] MEDS: CETIRIZINE 10 MG TABLET PO SCH (10:24)
[2017-04-03] MEDS: CLONIDINE HCL 0.2 MG TABLET PO SCH ×2 (10:25→21:38)
[2017-04-03] MEDS: LEVETIRACETAM 500 MG TABLET PO SCH ×2 (10:25→21:39)
[2017-04-03] MEDS: LANSOPRAZOLE 30 MG TAB.RAP.DR PO SCH (10:25)
[2017-04-03] MEDS: PREDNISONE 10 MG TABLET PO SCH (10:26)
[2017-04-03] MEDS: FLUTICASONE/SALMETEROL DISKUS 250-50 MCG/DOSE IH SCH ×2 (10:27→21:40)
--- NOTE | 2017-04-03 11:07 | PDOC PROGRESS REPORT ---
Subjective Progress Note for:: 04/03/17 Subjective:: Patient has no complaints. Patient denies fever, chills, headache, new focal weakness, chest pain, shortness of breath, abdominal pain, nausea, vomiting, diarrhea, constipation. Physical Exam Vital Signs: Temp Pulse Resp BP Pulse Ox 98.6 F 96 16 112/73 100 04/03/17 07:28 04/03/17 07:28 04/03/17 07:28 04/03/17 07:28 04/03/17 07:28 Intake & Output 04/02/17 04/03/17 04/04/17 06:59 06:59 06:59 Intake Total 600 2296 Output Total 1 Balance 599 2296 Weight 50.9 kg 51 kg GENERAL: No acute distress HEENT: Conjunctiva clear, nonicteric, moist mucous membranes, no JVD, midline trachea RESPIRATORY: Clear to auscultation bilaterally, no wheezes, no rhonchi CARDIAC: Regular rate and rhythm, no murmurs/gallops/rubs ABDOMEN: Soft, nondistended, nontender, positive bowel sounds, no rebound, no guarding EXTREMETIES: No edema, cyanosis, clubbing NEUROLOGIC: Alert, oriented to person/place/time, CN's grossly intact, no focal deficits SKIN: 1.5 cm shallow ulcerated on a prior gastrostomy site, no fluctuance, minimal erythema PSYCH: Normal mood, normal affect Results Laboratory Results: 04/02/17 02:25 04/02/17 01:30 Nasophary ([facility] Only) MRSA Surveillance Culture - Final NO MRSA RECOVERED Impressions: Abdomen/Pelvis CT 04/01/17 18:01 IMPRESSION: 1. There is no evidence of a subcutaneous abscess at the feeding tube site. 2. There are chronic compression changes. Assessment & Plan - Diagnosis (1) Abdominal wall cellulitis Is this a current diagnosis for this admission?: YesPlan: Continue IV Ancef for now. (2) Open abdominal wall wound Is this a current diagnosis for this admission?: YesPlan: Continue dry dressing changes. Refer patient to wound clinic as an outpatient. (3) UTI (urinary tract infection) Qualifiers: Urinary tract infection type: site unspecified Hematuria presence: with hematuria Qualified Code(s): N39.0 - Urinary tract infection, site not specified Is this a current diagnosis for this admission?: YesPlan: Ancef pending culture. (4) Hypertension Is this a current diagnosis for this admission?: YesPlan: Continue clonidine. (5) Malnutrition Is this a current diagnosis for this admission?: YesPlan: Continue regular diet with Ensure supplements. (6) Anemia of chronic disease Is this a current diagnosis for this admission?: Yes (7) Antiphospholipid syndrome Is this a current diagnosis for this admission?: Yes (8) HIT (heparin-induced thrombocytopenia) Is this a current diagnosis for this admission?: Yes (9) History of pulmonary embolism Is this a current diagnosis for this admission?: YesPlan: Continue anticoagulation with Arixtra. (10) Lupus (systemic lupus erythematosus) Qualifiers: Is this a current diagnosis for this admission?: Yes (11) Seizure Is this a current diagnosis for this admission?: YesPlan: Continue Keppra. (12) Vaginal discharge Is this a current diagnosis for this admission?: YesPlan: Patient is not sexually active. Likely yeast infection given recent antibiotic usage and chronic prednisone therapy. Improved with one-time dose of Diflucan 150 mg daily. - Time Time Spent with patient: 25-34 minutes
[2017-04-03 11:14] LABS: CREATININE RESULT 0.49 mg/dL (0.52-1.25)
[2017-04-03] MEDS: OXYCODONE-ACETAMINOPHEN 5-325 MG TABLET PO PRN (12:13)
[2017-04-03] MEDS ORDERED: VANCOMYCIN HCL 1,000 MG in DEXTROSE 5%-WATER 250 ML IV SCH (14:00)
[2017-04-04] MEDS: HYDROMORPHONE HCL INJ/PF 2 MG/ML AMPULE IV PRN ×3 (00:04→08:28)
[2017-04-04] MEDS: ZOLPIDEM TARTRATE 5 MG TABLET PO PRN (00:04)
[2017-04-04] MEDS: CEFAZOLIN 1 GM/D5W RTU 50 ML IV SCH (06:22)
[2017-04-04] MEDS: GABAPENTIN 300 MG CAPSULE PO SCH ×2 (06:22→15:09)
[2017-04-04] MEDS ORDERED: DOXYCYCLINE HYCLATE 100 MG TABLET PO SCH (10:00)
--- NOTE | 2017-04-04 10:24 | PDOC PROGRESS REPORT ---
Subjective Progress Note for:: 04/04/17 Subjective:: Patient is stable for discharge but does not want to leave. She would like to start oral antibiotic and see if she tolerates them for the next day. No fever, chills. +Chronic pain. Physical Exam Vital Signs: Temp Pulse Resp BP Pulse Ox 98.7 F 85 16 127/83 H 97 04/04/17 07:46 04/04/17 07:46 04/04/17 07:46 04/04/17 07:46 04/04/17 07:46 Intake & Output 04/03/17 04/04/17 04/05/17 06:59 06:59 06:59 Intake Total 2296 2538 Output Total 0 Balance 2296 2538 Weight 51 kg 52.2 kg GENERAL: No acute distress HEENT: Conjunctiva clear, nonicteric, moist mucous membranes, no JVD, midline trachea RESPIRATORY: Clear to auscultation bilaterally, no wheezes, no rhonchi CARDIAC: Regular rate and rhythm, no murmurs/gallops/rubs ABDOMEN: Soft, nondistended, nontender, positive bowel sounds, no rebound, no guarding EXTREMETIES: No edema, cyanosis, clubbing NEUROLOGIC: Alert, oriented to person/place/time, CN's grossly intact, no focal deficits SKIN: 1.5 cm shallow ulcerated on a prior gastrostomy site, no fluctuance, minimal erythema PSYCH: Normal mood, normal affect Results Laboratory Results: 04/02/17 02:25 04/03/17 10:30 04/03/17 10:30 Creatinine 0.49 L Est GFR ( Amer) > 60 Est GFR (Non-Af Amer) > 60 04/02/17 01:30 Nasophary ([facility] Only) MRSA Surveillance Culture - Final NO MRSA RECOVERED Impressions: Abdomen/Pelvis CT 04/01/17 18:01 IMPRESSION: 1. There is no evidence of a subcutaneous abscess at the feeding tube site. 2. There are chronic compression changes. Assessment & Plan - Diagnosis (1) Abdominal wall cellulitis Is this a current diagnosis for this admission?: YesPlan: Culture with MSSA sens. to doxycycline. D/c IV Abx, start doxycycline. (2) Open abdominal wall wound Is this a current diagnosis for this admission?: YesPlan: Continue dry dressing changes. Refer patient to wound clinic as an outpatient. (3) UTI (urinary tract infection) Qualifiers: Urinary tract infection type: site unspecified Hematuria presence: with hematuria Qualified Code(s): N39.0 - Urinary tract infection, site not specified Is this a current diagnosis for this admission?: YesPlan: Culture with Ecoli/Staph both sensitive to tetracycline. D/c IV Abx, start doxycycline. (4) Hypertension Is this a current diagnosis for this admission?: YesPlan: Continue clonidine. (5) Malnutrition Is this a current diagnosis for this admission?: YesPlan: Continue regular diet with Ensure supplements. (6) Anemia of chronic disease Is this a current diagnosis for this admission?: Yes (7) Antiphospholipid syndrome Is this a current diagnosis for this admission?: Yes (8) HIT (heparin-induced thrombocytopenia) Is this a current diagnosis for this admission?: Yes (9) History of pulmonary embolism Is this a current diagnosis for this admission?: YesPlan: Continue anticoagulation with Arixtra. (10) Lupus (systemic lupus erythematosus) Qualifiers: Is this a current diagnosis for this admission?: YesPlan: Follow up with Dr. Littlejohn of rheumatology after discharge. (11) Seizure Is this a current diagnosis for this admission?: YesPlan: Continue Keppra. (12) Vaginal discharge Is this a current diagnosis for this admission?: Yes (13) Chronic pain Is this a current diagnosis for this admission?: YesPlan: D/c IV pain meds. Percocet PRN. - Time Time Spent with patient: 25-34 minutes Anticipated discharge: Home Within: within 24 hours
[2017-04-04] MEDS: CLONIDINE HCL 0.2 MG TABLET PO SCH (10:43)
[2017-04-04] MEDS: LANSOPRAZOLE 30 MG TAB.RAP.DR PO SCH (10:45)
[2017-04-04] MEDS: CETIRIZINE 10 MG TABLET PO SCH (10:45)
[2017-04-04] MEDS: PROMETHAZINE HCL 25 MG TABLET PO PRN (10:45)
[2017-04-04] MEDS: PREDNISONE 10 MG TABLET PO SCH (10:46)
[2017-04-04] MEDS: LEVETIRACETAM 500 MG TABLET PO SCH (10:46)
[2017-04-04] MEDS: FLUTICASONE/SALMETEROL DISKUS 250-50 MCG/DOSE IH SCH (10:52)
[2017-04-04] MEDS: FONDAPARINUX SODIUM INJ 7.5 MG/0.6 ML DISP.SYRIN SUBCUT SCH (10:54)
[2017-04-04] MEDS: OXYCODONE-ACETAMINOPHEN 5-325 MG TABLET PO PRN (12:47)
[2017-04-04 14:53] VITALS: BP 131/101
--- NOTE | 2017-04-04 17:48 | PDOC DISCHARGE SUMMARY ---
General - Admit/Disc Date/PCP Admission Date/Primary Care Provider: 04/01/17 20:21 ZAIRA ELI MD Discharge Date: 04/04/17 - Discharge Diagnosis (1) Abdominal wall cellulitis Is this a current diagnosis for this admission?: Yes (2) Open abdominal wall wound Is this a current diagnosis for this admission?: Yes (3) UTI (urinary tract infection) Is this a current diagnosis for this admission?: Yes (4) Hypertension Is this a current diagnosis for this admission?: Yes (5) Malnutrition Is this a current diagnosis for this admission?: Yes (6) Anemia of chronic disease Is this a current diagnosis for this admission?: Yes (7) Antiphospholipid syndrome Is this a current diagnosis for this admission?: Yes (8) HIT (heparin-induced thrombocytopenia) Is this a current diagnosis for this admission?: Yes (9) History of pulmonary embolism Is this a current diagnosis for this admission?: Yes (10) Lupus (systemic lupus erythematosus) Is this a current diagnosis for this admission?: Yes (11) Seizure Is this a current diagnosis for this admission?: Yes (12) Vaginal discharge Is this a current diagnosis for this admission?: Yes (13) Chronic pain Is this a current diagnosis for this admission?: Yes - Additional Information Discharge Diet: Regular Discharge Activity: Activity As Tolerated Home Medications: Albuterol Sulfate [Proair HFA] 2 puff IH Q6HP PRN 04/01/17 Butalb/Acetaminophen/Caffeine [Fioricet (50-325-40 mg) Tablet] 1 tab PO QIDP PRN 04/01/17 Cetirizine HCl [Zyrtec 10 mg Tablet] 10 mg PO DAILY 04/01/17 Clobetasol Propionate/Emoll [Clobetasol Emollient 0.05% Crm] 1 applic TP BIDP PRN 04/01/17 Clonidine HCl [Catapres 0.3 mg Tablet] 0.3 mg PO Q12 04/01/17 Fluticasone/Salmeterol [Advair 250-50 Diskus 28 dose] 1 puff IH Q12 04/01/17 Fondaparinux Sodium [Arixtra] 7.5 mg SUBCUT DAILY 04/01/17 Gabapentin [Neurontin 300 mg Capsule] 900 mg PO Q8 04/01/17 Hydroxyzine HCl [Atarax 25 mg Tablet] 25 mg PO TIDP PRN 04/01/17 Ibuprofen [Motrin 800 mg Tablet] 800 mg PO TIDP PRN 04/01/17 Lansoprazole [Prevacid] 30 mg PO DAILY 04/01/17 Levetiracetam [Keppra] 750 mg PO Q12 04/01/17 Mycophenolate Mofetil 2.5 ml PO BID 04/01/17 Nystatin/Dexameth/Diphen [Magic Mouthwash] 10 ml PO Q6HP PRN 04/01/17 Ondansetron [Zofran Odt] 8 mg PO QIDP PRN 04/01/17 Oxycodone HCl/Acetaminophen [Percocet 7.5-325 mg Tablet] 1 tab PO DAILY Prednisone [Deltasone 10 mg Tablet] 10 mg PO DAILY 04/01/17 Promethazine HCl [Phenergan 25 mg Tablet] 25 mg PO Q6HP PRN 04/01/17 Tizanidine HCl [Zanaflex 4 mg Tablet] 8 mg PO TIDP PRN 04/01/17 Triamcinolone Acetonide [Kenalog in Orabase] 1 applic DT QIDP PRN 04/01/17 Zolpidem Tartrate [Ambien] 10 mg PO HSP PRN 04/01/17 Doxycycline Hyclate [Vibramycin 100 mg Tablet] 100 mg PO Q12 #20 tablet Fluconazole [Diflucan] 150 mg PO ONCE PRN #1 tablet 04/04/17 History of Present Illness Patient complains of: Nausea and vomiting History of Present Illness: JOSE DUMONT is a 21 year old female with past medical history of lupus, pulmonary embolism, antiphospholipid antibody, anemia, malnutrition the presents with several complaints. First is nausea and vomiting. Second dysuria. Start continued wound and redness at site of gastrostomy tube removal on 03/04/2017. Patient completed course of outpatient antibiotics for abdominal wall abscess/cellulitis. Her gastrostomy tube was discontinued secondary to abdominal wall abscess. Hospital Course Hospital Course: Patient was admitted for abdominal wall cellulitis and wound. Abdominal wound grew staph aureus sensitive to doxycycline. Patient was initially on IV Ancef. She is discharged home on oral doxycycline. Patient had urinary tract infection and grew E. coli and staph aureus. Both organisms sensitive to doxycycline. Patient has chronic pain secondary to lupus and chronic opiate dependence. Physical Exam Vital Signs: Temp Pulse Resp BP Pulse Ox 98.7 F 108 H 18 131/101 H 100 04/04/17 14:52 04/04/17 14:52 04/04/17 14:52 04/04/17 14:52 04/04/17 14:52 Intake & Output 04/03/17 04/04/17 04/05/17 06:59 06:59 06:59 Intake Total 2296 2538 222 Output Total 0 Balance 2296 2538 222 Weight 51 kg 52.2 kg GENERAL: No acute distress HEENT: Conjunctiva clear, nonicteric, moist mucous membranes, no JVD, midline trachea RESPIRATORY: Clear to auscultation bilaterally, no wheezes, no rhonchi CARDIAC: Regular rate and rhythm, no murmurs/gallops/rubs ABDOMEN: Soft, nondistended, nontender, positive bowel sounds, no rebound, no guarding EXTREMETIES: No edema, cyanosis, clubbing NEUROLOGIC: Alert, oriented to person/place/time, CN's grossly intact, no focal deficits SKIN: 1.5 cm shallow ulcerated on a prior gastrostomy site, no fluctuance, minimal erythema PSYCH: Normal mood, normal affect Results Laboratory Results: 04/02/17 02:25 04/03/17 10:30 04/02/17 01:30 G Tube (Peg Tube) Gram Stain - Final 04/02/17 01:30 G Tube (Peg Tube) Wound Culture - Final Staphylococcus Aureus No Anaerobic Organisms Impressions: Abdomen/Pelvis CT 04/01/17 18:01 IMPRESSION: 1. There is no evidence of a subcutaneous abscess at the feeding tube site. 2. There are chronic compression changes. Qualifiers PATEINT BEING DISCHARGED WITH ANY OF THE FOLLOWING DIAGNOSIS?: No Plan Time Spent: Less than 30 Minutes
== END 2017-04-04 16:05 | disposition home or self-care (01) | DRG 603 ==
LOC: ER 15:48 → UNDOADMIN 18:28 → EH 18:28 → 3W 04-02 00:26
PROVIDERS: ADMIT Family Medicine; ATTEND Family Medicine
DX: L03.311 Cellulitis of abdominal wall (principal); B95.61 Methicillin susceptible Staphylococcus aureus infection as the cause of diseases classified elsewhere; E46 Unspecified protein-calorie malnutrition; Z68.20 Body mass index [BMI] 20.0-20.9, adult; N39.0 Urinary tract infection, site not specified; B96.20 Unspecified Escherichia coli [E. coli] as the cause of diseases classified elsewhere; I10 Essential (primary) hypertension; D63.8 Anemia in other chronic diseases classified elsewhere; D75.82 Heparin induced thrombocytopenia (HIT); M32.9 Systemic lupus erythematosus, unspecified; G40.909 Epilepsy, unspecified, not intractable, without status epilepticus; G89.29 Other chronic pain; N89.8 Other specified noninflammatory disorders of vagina; Z79.899 Other long term (current) drug therapy; Z86.14 Personal history of Methicillin resistant Staphylococcus aureus infection; Z86.711 Personal history of pulmonary embolism; Z86.718 Personal history of other venous thrombosis and embolism; Z91.013 Allergy to seafood; Z88.8 Allergy status to other drugs, medicaments and biological substances
CPT/HCPCS: 36415; 36591; 74177; 80053; 80177; 80202; 81001; 82565; 83605; 83690; 83735; 84703; 85025; 85610; 85730; 87040; 87070; 87075; 87077; 87086; 87088; 87186; 87205; 96361; 96374; 96375; 99285; J0690; J1170; J1652; J1953; J2405; J2543; J3370; J3480; J3490; J7030; J7060; J7512; S0119

== ENCOUNTER 2017-05-05 09:13 | Emergency (ER) | payer MEDICARE, MEDICAID ==
--- NOTE | 2017-05-05 09:42 | ER Document Report ---
ED Medical Screen (RME) - General Chief Complaint: Pain All Over Stated Complaint: NAUSEA,VOMITING Time Seen by Provider: 05/05/17 09:40 Notes: Patient has a history of lupus presents with right-sided chest pain that radiates to the right low back and goes down her right leg she states. She also states she has been very nauseated. This started yesterday. She states she had a cough that started today. She states she has had multiple DVTs and pulmonary embolisms but she is currently on Arixtra. She also states she has had pneumonia multiple times. TRAVEL OUTSIDE OF THE [place] IN LAST 30 DAYS: No - Related Data Allergies/Adverse Reactions: shellfish derived Allergy (Severe, Verified 05/05/17 09:25) Anaphylaxis ketorolac tromethamine [From Toradol] Allergy (Intermediate, Verified 05/05/17 09:25) Hives morphine [Morphine] Allergy (Intermediate, Verified 05/05/17 09:25) Hives sulfamethoxazole [From Bactrim] Allergy (Unknown, Verified 05/05/17 09:25) Pruritis trimethoprim [From Bactrim] Allergy (Unknown, Verified 05/05/17 09:25) Pruritis belimumab [From Benlysta] Allergy (Verified 05/05/17 09:25) rash heparin Adverse Reaction (Verified 05/05/17 09:25) Hx HIT Past Medical History - Past Medical History Cardiac Medical History: Reports: Hx DVT, Hx Hypertension, Hx Pulmonary Embolism Denies: Hx Coronary Artery Disease, Hx Heart Attack, Hx Hypercholesterolemia Pulmonary Medical History: Reports: Hx Asthma - Pediatric, Hx Pneumonia Denies: Hx Bronchitis, Hx COPD, Hx Tuberculosis Neurological Medical History: Reports: Hx Migraine, Hx Seizures. Denies: Hx Cerebrovascular Accident Endocrine Medical History: Denies: Hx Diabetes Mellitus Type 1, Hx Diabetes Mellitus Type 2, Hx Hyperthyroidism, Hx Hypothyroidism Renal/ Medical History: Denies: Hx Peritoneal Dialysis GI Medical History: Reports: Hx Gastritis, Hx Gastroesophageal Reflux Disease, Hx Ulcer, Hx Endoscopy. 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 Denies: Hx Hepatitis Past Surgical History: Reports: Hx Abdominal Surgery - PEG tube, Other - PEG placement 2, Port-A-Cath. Denies: Hx Hysterectomy - Immunizations Immunizations up to date: Yes Hx Diphtheria, Pertussis, Tetanus Vaccination: Yes Physical Exam - Vital signs Vitals: Temp Pulse Resp BP 98.4 F 88 20 132/97 H 05/05/17 09:29 05/05/17 09:29 05/05/17 09:29 05/05/17 09:29 Course - Vital Signs Vital signs: Temp Pulse Resp BP Pulse Ox 98.4 F 88 20 132/97 H 05/05/17 09:29 05/05/17 09:29 05/05/17 09:29 05/05/17 09:29
--- NOTE | 2017-05-05 10:02 | RADIOLOGY REPORT (SQ) ---
EXAM DESCRIPTION: CHEST PA/LAT COMPLETED DATE/TIME: 05/05/2017 9:53 am REASON FOR STUDY: cp/cough COMPARISON: 01/31/2017 EXAM PARAMETERS: NUMBER OF VIEWS: two views TECHNIQUE: Digital Frontal and Lateral radiographic views of the chest acquired. RADIATION DOSE: NA LIMITATIONS: none FINDINGS: LUNGS AND PLEURA: No opacities, masses or pneumothorax. No pleural effusion. MEDIASTINUM AND HILAR STRUCTURES: No masses or contour abnormalities. HEART AND VASCULAR STRUCTURES: Heart normal size. No evidence for failure. BONES: No acute findings. HARDWARE: Left IJ chest port. OTHER: Clips noted at in the left upper quadrant from prior gastrostomy tube placement IMPRESSION: NO SIGNIFICANT RADIOGRAPHIC FINDING IN THE CHEST. TECHNICAL DOCUMENTATION: JOB ID: [id number] [employer]- All Rights Reserved
[2017-05-05 10:52] LABS: ABSOLUTE BASOPHILS # (AUTO) 0.1 10^3/uL (0.0-0.2); ABSOLUTE EOSINOPHILS # (AUTO) 0.1 10^3/uL (0.0-0.6); ABSOLUTE LYMPHOCYTES (AUTO) 1.2 10^3/uL (0.5-4.7); ABSOLUTE MONOCYTES (AUTO) 0.9 10^3/uL (0.1-1.4); ABSOLUTE NEUT (AUTO) 4.1 10^3/uL (1.7-8.2); BASOPHILS % (AUTO) 0.9 % (0-2); EOSINOPHILS % (AUTO) 1.4 % (0-6); HEMATOCRIT 30.1 % (36.0-47.0); HGB HCT DIFFERENCE -0.1; LYMPHOCYTES % (AUTO) 19.4 % (13-45); MEAN CORPUSCULAR HEMOGLOBIN 31.2 pg (27.0-33.4); MEAN CORPUSCULAR HGB CONC 33.1 g/dL (32.0-36.0); MEAN CORPUSCULAR VOLUME 94 fl (80-97); MONOCYTES % (AUTO) 13.5 % (3-13); SEGMENTED NEUTROPHILS % (AUTO) 64.8 % (42-78); WHITE BLOOD COUNT 6.3 10^3/uL (4.0-10.5)
[2017-05-05 11:05] LABS: ALANINE AMINOTRANSFERASE 14 U/L (9-52); ALBUMIN 3.6 g/dL (3.5-5.0); ALKALINE PHOSPHATASE 142 U/L (38-126); ANION GAP 11 (5-19); ASPARTATE AMINO TRANSFERASE 23 U/L (14-36); BILIRUBIN,DIRECT 0.3 mg/dL (0.0-0.4); BILIRUBIN,TOTAL 0.3 mg/dL (0.2-1.3); BLOOD UREA NITROGEN 10 mg/dL (7-20); CALCIUM 8.9 mg/dL (8.4-10.2); CARBON DIOXIDE 22 mmol/L (22-30); CHLORIDE 109 mmol/L (98-107); CREATININE RESULT 0.41 mg/dL (0.52-1.25); GLUCOSE 91 mg/dL (75-110); POTASSIUM 3.7 mmol/L (3.6-5.0); SODIUM 142.1 mmol/L (137-145); TOTAL PROTEIN 10.2 g/dL (6.3-8.2)
[2017-05-05] MEDS ORDERED: ONDANSETRON 4 MG TAB.RAPDIS PO ONE (11:07)
[2017-05-05] MEDS ORDERED: LIDOCAINE 5% (700 MG) TRANSDERMAL ADH..PATCH TP ONE (11:09)
--- NOTE | 2017-05-05 11:21 | ER Document Report ---
HPI - HPI Pain Level: 4 Notes: Patient is a 21-year-old female with a history of lupus, PE, DVT presents the ED complaining of chest pain 1.5 weeks, cough 1 day, nausea/vomiting 2 days, low back pain-chronic, burning with urination 2 days. Patient states that her symptoms began with chest pain that is described as sharp and heavy and is constant. Taking deep breaths does exacerbate her symptoms. Patient states she is able to walk without becoming short of breath and states that she was walking and doing stairs without any difficulties prior to coming in. Patient states that she began having a productive cough 1 day, no hemoptysis. Patient reports vomiting 3-5 times today without any hematemesis. Her back pain is in the low back and pt states that she feels the pain radiate down her b/l LE's. Reviewed patient's allergies. Patient states that she does take Arixtra because of her clots in the past. Patient does have a port placement because of bad veins. Her PCM is Dr. Rolle. Denies any smoking or illicit drug use. Denies any headache, fever, head injury, neck pain/stiffness, URI, sore throat, palpitations, syncope, wheeze, abdominal pain, diarrhea, urinary retention, hematuria, loss of control of bowel or bladder, numbness/tingling, saddle anesthesia, muscle paralysis/weakness, or rash. No recent travel, illness, hospitalization, or exposure to sick contacts. - ROS Notes: REVIEW OF SYSTEMS: CONSTITUTIONAL : Denies fever, chills, or sweats. EENT: Denies eye, ear, throat, or mouth pain or symptoms. Denies nasal or sinus congestion or discharge. Denies throat, tongue, or mouth swelling or difficulty swallowing. CARDIOVASCULAR: See HPI. Denies palpitations or racing or irregular heart beat. Denies ankle edema. RESPIRATORY: Denies difficulty breathing, or wheezing. GASTROINTESTINAL: Denies abdominal pain or distention. Denies diarrhea. Denies blood in vomitus, stools, or per rectum. Denies black, tarry stools. Denies constipation. GENITOURINARY: Denies urinary frequency, blood in urine, or discharge. FEMALE GENITOURINARY: Denies vaginal bleeding, heavy or abnormal periods, irregular periods. Denies vaginal discharge or odor. MUSCULOSKELETAL: see hpi SKIN: Denies rash, lesions or sores. NEUROLOGICAL: Denies confusion or altered mental status. Denies passing out or loss of consciousness. Denies dizziness or lightheadedness. Denies headache. Denies weakness or paralysis or loss of use of either side. Denies problems with gait or speech. Denies sensory loss, numbness, or tingling. ALL OTHER SYSTEMS REVIEWED AND NEGATIVE. Dictation was performed using [employer] voice recognition software - REPRODUCTIVE Reproductive: DENIES: : - DERM Skin Color: Normal Past Medical History - Social History Smoking Status: Never Smoker Chew tobacco use (# tins/day): No Frequency of alcohol use: None Drug Abuse: None Family History: Reviewed & Not Pertinent, Other - Lupus-mother - Past Medical History Cardiac Medical History: Reports: Hx DVT, Hx Hypertension, Hx Pulmonary Embolism Denies: Hx Coronary Artery Disease, Hx Heart Attack, Hx Hypercholesterolemia Pulmonary Medical History: Reports: Hx Asthma - Pediatric, Hx Pneumonia Denies: Hx Bronchitis, Hx COPD, Hx Tuberculosis Neurological Medical History: Reports: Hx Migraine, Hx Seizures. Denies: Hx Cerebrovascular Accident Endocrine Medical History: Denies: Hx Diabetes Mellitus Type 1, Hx Diabetes Mellitus Type 2, Hx Hyperthyroidism, Hx Hypothyroidism Renal/ Medical History: Denies: Hx Peritoneal Dialysis GI Medical History: Reports: Hx Gastritis, Hx Gastroesophageal Reflux Disease, Hx Ulcer, Hx Endoscopy. 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 Denies: Hx Hepatitis Past Surgical History: Reports: Hx Abdominal Surgery - PEG tube, Other - PEG placement 2, Port-A-Cath. Denies: Hx Hysterectomy - Immunizations Immunizations up to date: Yes Hx Diphtheria, Pertussis, Tetanus Vaccination: Yes Hx Pneumococcal Vaccination: 10/04/14 Vertical Provider Document - CONSTITUTIONAL Agree With Documented VS: Yes Notes: PHYSICAL EXAMINATION: GENERAL: Well-appearing, well-nourished and in no acute distress. HEAD: Atraumatic, normocephalic. EYES: Pupils equal round and reactive to light, extraocular movements intact, sclera anicteric, conjunctiva are normal. ENT: EAC clear b/l. TM's intact b/l without erythema, fluid, or perforation. Nares patent and without discharge. oropharynx clear without exudates. No tonsilar hypertrophy or erythema. Moist mucous membranes. No sinus tenderness. NECK: Normal range of motion, supple without lymphadenopathy. No rigidity/ meningismus. Chest: equal rise/fall, no frail chest. Port in place left side without evidence of infection. + tenderness to b/l sternum at costochondral areas. LUNGS: Breath sounds clear to auscultation bilaterally and equal. No wheezes rales or rhonchi. HEART: Regular rate (mildly tachycardic at 108) and rhythm without murmurs, rubs , gallops. ABDOMEN: Soft, nontender, nondistended abdomen. No guarding, no rebound. No masses appreciated. Normal bowel sounds present. No CVA tenderness bilaterally. No pulsatile mass. No inguinal adenopathy, mass, or tenderness. Musculoskeletal: LE's b/l: FROM to passive/active. Strength 5+/5. Darby negative b/l. No inflammation, edema, warmth, or erythema noted. Back: FROM to passive/active. Strength 5+/5. SLR negative b/l. Pt sitting up comfortably with legs crossed. Reflexes 2+ b/l. Extremities: No cyanosis, clubbing, or edema b/l. Peripheral pulses 2+. Capillary refill less than 3 seconds. NEUROLOGICAL: Cranial nerves grossly intact. Normal speech. Normal sensory, motor exams PSYCH: Normal mood, normal affect. SKIN: Warm, Dry, normal turgor, no rashes or lesions noted. - INFECTION CONTROL TRAVEL OUTSIDE OF THE [place] IN LAST 30 DAYS: No - RESPIRATORY O2 Sat by Pulse Oximetry: 100 Course - Re-evaluation Re-evalutation: 05/05/17 13:39 Patient is an afebrile, well-hydrated, 21-year-old female presents the ED with chest pain, suspect inflammatory along with nausea/vomiting--possible gastroenteritis along with UTI based on urine dip. Culture is pending. Vitals are stable with mild tachycardia intermittently. PE otherwise unremarkable for any focal neurovascular deficits. Low suspicion for any DVT, PE, ACS, dissecting aneurysm, pericarditis, pneumothorax, sepsis, meningitis, cauda equina, disc herniation causing severe spinal stenosis, ruptured/expanding AAA, or other emergent systemic condition at this time. CBC, CMP, and CTA were unremarkable. 1L NS and zofran were given today. Lidoderm patch applied today. Pt continually requested narcotics for pain and became very upset and critical after I left the room. I answered all questions thoroughly and with sincerity/empathy towards the patient. I reviewed with her that no narcotics will be prescribed as she receives #120 percocets every month for pain and is still 8-10 days early for a refill. I will send her home with Keflex 500mg PO TID along with voltaren gel to use as directed. Pt states that she is not allergic to heparin (as it is in her chart) bc they use that to flush her port. Reviewed with Dr. Derw who is in agreement with plan and discharge. Conservative measures otherwise for symptoms as reviewed. Risks/benefits understood of medications and current work up. Recheck with her PCM in 2-3 days. Return to ED with any worsening/concerning symptoms are as reviewed discharge. Patient is in agreement. - Vital Signs Vital signs: Temp Pulse Resp BP Pulse Ox 98.4 F 88 20 132/97 H 100 05/05/17 09:29 05/05/17 09:29 05/05/17 11:00 05/05/17 09:29 05/05/17 11:00 - Laboratory Result Diagrams: 05/05/17 10:43 05/05/17 10:43 Laboratory results interpreted by me: 05/05/17 10:43 RBC 3.20 L Hgb 10.0 L Hct 30.1 L Monocytes % 13.5 H Discharge - Discharge Clinical Impression: Dysuria, Cough, Chest wall pain Condition: Stable Disposition: HOME, SELF-CARE Instructions: Chest Wall Pain ([facility]), Urinary Tract Infection ([facility]) Additional Instructions: Push fluids (i.e. water, cranberry juice) Proper hygenic technique Keep the skin clean Tylenol/ibuprofen as needed Use voltaren gel as directed May use over the counter AZO for burning with urination Take medications as directed Maintain adequate fluid intake over the counter cold medication as needed for symptoms Humidified air may help F/u with your PCM in 2-3 days for a recheck Consider consult with a Urologist for ongoing/worsening symptoms. Return to the ED with any worsening symptoms and/or development of fever, headache, chest pain, palpitations, syncope, shortness of breath, trouble breathing, abdominal pain, n/v/d, blood in stool/urine, loss of control of bowel /bladder, urinary retention, muscle weakness/paralysis, saddle anesthesia, numbness/tingling, or other worsening symptoms that are concerning to you. If any rash with voltaren gel to stop and take benadryl then seek medical attention. Prescriptions: Cephalexin Monohydrate [Keflex 500 mg Capsule] 500 mg PO TID #30 capsule Diclofenac Sodium [Voltaren] 4 gm TP QID PRN #100 gel..gm. PRN Reason: Forms: Elevated Blood Pressure Referrals: PULMONOLOGY [Provider Group] - Follow up in 3-5 days [facility] [Provider Group] - Follow up as needed
[2017-05-05] MEDS ORDERED: ONDANSETRON HCL INJ/PF 4 MG/2 ML SDV IV ONE (11:30)
[2017-05-05] MEDS ORDERED: NORMAL SALINE 1000 ML 1,000 ML IV ONE (11:33)
[2017-05-05 12:16] LABS: APPEARANCE,URINE SLIGHTLY-CLOUDY; BILIRUBIN,URINE NEGATIVE (NEGATIVE); GLUCOSE, URINE NEGATIVE (NEGATIVE); KETONES,URINE NEGATIVE (NEGATIVE); LEUKOCYTE ESTERASE,URINE LARGE (NEGATIVE); NITRITE,URINE NEGATIVE (NEGATIVE); PROTEIN,URINE 100 mg/dL (NEGATIVE); URINE SPECIFIC GRAVITY 1.019; UROBILINOGEN,URINE NEGATIVE mg/dL (<2.0)
[2017-05-05 12:32] VITALS: BP 146/114
--- NOTE | 2017-05-05 13:07 | RADIOLOGY REPORT (SQ) ---
EXAM DESCRIPTION: CTA CHEST COMPLETED DATE/TIME: 05/05/2017 12:56 pm REASON FOR STUDY: chest pain, h/o PE COMPARISON: 03/03/2017 TECHNIQUE: CT scan of the chest performed using helical scanning technique with dynamic intravenous contrast injection. Images reviewed with lung, soft tissue and bone windows. Reconstructed coronal and sagittal MPR images reviewed. Additional 3 dimensional post-processing performed to develop Maximal Intensity Projection images (TX P). All images stored on PACS. All CT scanners at this facility use dose modulation, iterative reconstruction, and/or weight based d osing when appropriate to reduce radiation dose to as low as reasonably achievable (ALARA). [facility]: Dose Right [facility]: CareDose [facility]: Dose Right [facility]: Teradose 4D [facility]: [employer] CONTRAST TYPE AND DOSE: contrast/concentration: Isovue 370.00 mg/ml; Total Contrast Delivered: 61.0 ml; Total Saline Delivered: 90.0 ml RENAL FUNCTION: BUN 10 creatinine 0.41 RADIATION DOSE: Up-to-date CT equipment and radiation dose reduction techniques were employed. CTDIv ol: 14.3 - 19.8 mGy. DLP: 413 mGy-cm. . LIMITATIONS: None. FINDINGS: LUNGS AND PLEURA: No masses, infiltrates, pneumothorax. No pleural effusions, calcificati ons. Mild scarring or atelectasis noted in both lower lobes in the right middle lobe. Stable mild p leural thickening on the right, unchanged. AORTA AND GREAT VESSELS: No aneurysm or dissection. HEART: No pericardial effusion. PULMONARY ARTERIES: No emboli visualized in the main pulmonary arteries or the segmental branches. HILAR AND MEDIASTINAL STRUCTURES: No identified masses or abnormal nodes. HARDWARE: Left chest port. UPPER ABDOMEN: No significant findings. Hepatic steatosis. Limited exam. THYROID AND OTHER SOFT TISSUES: No masses. No adenopathy. BONES: No acute or significant finding. 3D MIPS: Confirm above findings. OTHER: No other significant finding. IMPRESSION: No pulmonary embolus. No focal consolidations or significant pleural effusions. Stable thickening of the pleura in a adjacent to the right upper lobe. Hepatic steatosis. TECHNICAL DOCUMENTATION: JOB ID: [id number] Quality ID # [id number]: Final reports with documentation of one or more dose reduction techniques (e.g., Au tomated exposure control, adjustment of the mA and/or kV according to patient size, use of iterative reconstruction technique) 2010 [employer]- All Rights Reserved
== END 2017-05-05 13:58 | disposition home or self-care (01) ==
LOC: ER 09:13
DX: R07.89 Other chest pain (principal); R30.0 Dysuria; R05 Cough; R11.2 Nausea with vomiting, unspecified; R00.0 Tachycardia, unspecified; I10 Essential (primary) hypertension; M54.5 Low back pain; G89.29 Other chronic pain; Z86.711 Personal history of pulmonary embolism; Z86.718 Personal history of other venous thrombosis and embolism; Z79.02 Long term (current) use of antithrombotics/antiplatelets; Z87.01 Personal history of pneumonia (recurrent); Z86.14 Personal history of Methicillin resistant Staphylococcus aureus infection; Z79.891 Long term (current) use of opiate analgesic
CPT/HCPCS: 36591; 99284; 96374; 36415; 85025; 81025; 80053; 81001; 71020; 71275; A9270; J2405; J7030; S0119

== ENCOUNTER 2017-06-15 10:48 | Day surgery (SDC) | payer MEDICARE, MEDICAID ==
[2017-06-11 12:15] LABS: ABSOLUTE BASOPHILS # (AUTO) 0.1 10^3/uL (0.0-0.2); ABSOLUTE EOSINOPHILS # (AUTO) 0.1 10^3/uL (0.0-0.6); ABSOLUTE LYMPHOCYTES (AUTO) 1.3 10^3/uL (0.5-4.7); ABSOLUTE MONOCYTES (AUTO) 0.8 10^3/uL (0.1-1.4); ABSOLUTE NEUT (AUTO) 7.7 10^3/uL (1.7-8.2); BASOPHILS % (AUTO) 0.6 % (0-2); EOSINOPHILS % (AUTO) 0.6 % (0-6); HEMATOCRIT 31.5 % (36.0-47.0); HEMOGLOBIN 10.4 g/dL (12.0-15.5); HGB HCT DIFFERENCE -0.3; LYMPHOCYTES % (AUTO) 13.1 % (13-45); MEAN CORPUSCULAR HEMOGLOBIN 30.3 pg (27.0-33.4); MEAN CORPUSCULAR VOLUME 92 fl (80-97); MONOCYTES % (AUTO) 8.1 % (3-13); RED BLOOD COUNT 3.43 10^6/uL (3.72-5.28); RED CELL DISTRIBUTION WIDTH 13.9 % (11.5-14.0); SEGMENTED NEUTROPHILS % (AUTO) 77.6 % (42-78)
[2017-06-11 12:49] LABS: ANION GAP 18 (5-19); BLOOD UREA NITROGEN 19 mg/dL (7-20); CALCIUM 9.8 mg/dL (8.4-10.2); CARBON DIOXIDE 18 mmol/L (22-30); CHLORIDE 106 mmol/L (98-107); GLUCOSE 85 mg/dL (75-110); POTASSIUM 4.8 mmol/L (3.6-5.0); SODIUM 142.3 mmol/L (137-145)
--- NOTE | 2017-06-11 13:17 | EKG REPORT ---
SEVERITY:- OTHERWISE NORMAL ECG - SINUS TACHYCARDIA : Confirmed by: Tk Baxter MD 11-Jun-2017 13:16:52
[~2017-06-15 10:48] MED LIST: RINGERS SOLUTION,LACTATED 1,000 ML IV PRN
[2017-06-15] MEDS ORDERED: MIDAZOLAM 2 MG/2 ML INJ ONE (12:19)
[2017-06-15] MEDS ORDERED: FENTANYL CITRATE INJ/PF 100 MCG/2 ML AMPUL ONE ×2 (12:19→14:43)
[2017-06-15] MEDS ORDERED: PROPOFOL INJ 200 MG/20 ML VIAL IV ONE (12:20)
[2017-06-15] MEDS ORDERED: ONDANSETRON HCL INJ/PF 4 MG/2 ML SDV ONE (12:20)
[2017-06-15] MEDS ORDERED: DEXAMETHASONE SOD PHOSPHATE INJ 4 MG/1 ML VIAL ONE (12:20)
[2017-06-15 12:49] LABS: PARTIAL THROMBOPLASTIN TIME 70.8 SEC (23.5-35.8)
[2017-06-15] MEDS ORDERED: LIDOCAINE 2%/EPINEPHRINE INJ 1.7 ML CARTRIDGE ONE (12:53)
[2017-06-15] MEDS ORDERED: BUPIVACAINE HCL 0.5%/EPI 1:200000 INJ 1.8 ML CARTRIDGE ONE (12:53)
[2017-06-15] MEDS ORDERED: ATENOLOL 50 MG TABLET PO ONE (13:00)
[2017-06-15] MEDS ORDERED: PHENYLEPHRINE HCL 0.25% NASAL SPRAY 15 ML ONE (13:12)
[2017-06-15] MEDS ORDERED: DIPHENHYDRAMINE HCL 50 MG/ML VIAL IV PRN (13:39)
[2017-06-15] MEDS ORDERED: PROMETHAZINE HCL INJ 25 MG/1 ML VIAL IV PRN ×2 (13:39)
[2017-06-15] MEDS ORDERED: MEPERIDINE HCL/PF INJ 25 MG/1 ML DISP.SYRIN IV PRN (13:39)
[2017-06-15] MEDS ORDERED: FENTANYL CITRATE INJ/PF 100 MCG/2 ML AMPUL IV PRN ×3 (13:39)
--- NOTE | 2017-06-15 14:39 | Operative Report ---
Operative Report DATE OF SURGERY: 06/15/17 PREOPERATIVE DIAGNOSIS: Dental caries and periodontitis POSTOPERATIVE DIAGNOSIS: Same OPERATION: surgical removal of all remaining teeth numbers 4, 5, 6, 7, 8, 9, 11 , 12, 13, 23, 24, 25, 26, 27, 28 and 31 with alveoloplasties of all 4 quadrants SURGEON: SYLVAIN LOU ANESTHESIA: GA TISSUE REMOVED OR ALTERED: Teeth which were discarded COMPLICATIONS: None ESTIMATED BLOOD LOSS: 50 mL INTRAOPERATIVE FINDINGS: Severe periodontitis and nonrestorable teeth PROCEDURE: The patient was brought into operating room #4 and placed on the operating room table in supine position. General anesthesia was induced via a peripheral IV and continued utilizing endotracheal intubation. The patient was prepped and draped in the usual fashion for an intraoral procedure. A total of 4 carpules of 2% lidocaine with 1:100,000 epinephrine and 1 carpule of half percent Marcaine with 1:200,000 epinephrine were delivered to the planned surgical sites via both infiltration and nerve block. The oral cavity and oropharynx was suctioned and a moistened oropharyngeal throat pack was placed. Full- thickness mucoperiosteal flaps were then developed. Ostectomy was completed as needed. The teeth were delivered using elevators and forceps. The sockets were curetted free of any debris and irrigated with normal saline solution. Surgifoam was placed in each of the sockets. The flaps were reapproximated and sutured using 4-0 chromic gut suture. The nerves were not seen. There was no sinus communication noted. A bite block was used throughout the procedure. The mandible was intact postoperatively. The oral cavity was irrigated and suctioned and found to be free of debris. The throat pack was removed. The oropharynx was suctioned. Gauze packs were placed to aid in continued hemostasis. The patient was awakened from general anesthesia, extubated in the operating room and taken to recovery room in spontaneous breathing fashion.
[2017-06-15] MEDS: HYDROMORPHONE HCL INJ/PF 2 MG/ML AMPULE ONE ×2 (14:50→15:10)
[2017-06-15] MEDS ORDERED: OXYCODONE-ACETAMINOPHEN 5-325 MG TABLET PO PRN (14:57)
[2017-06-15] MEDS ORDERED: ACETAMINOPHEN 100 ML IV ONE (15:02)
[2017-06-15] MEDS ORDERED: SUCCINYLCHOLINE CHLORIDE INJ 200 MG/10 ML VIAL ONE (15:33)
[2017-06-15 17:03] VITALS: BP 134/98
== END 2017-06-15 17:03 | disposition home or self-care (01) ==
LOC: OROUT 10:48
PROVIDERS: ATTEND Dentist Oral and Maxillofacial Surgery
PROC: 0CDWXZ1 Extraction of Upper Tooth, Multiple, External Approach (ICD-10-PCS; 2017-06-15)
PROC: 0NQVXZZ Repair Left Mandible, External Approach (ICD-10-PCS; 2017-06-15)
PROC: 0NQTXZZ Repair Right Mandible, External Approach (ICD-10-PCS; 2017-06-15)
PROC: 0NQRXZZ Repair Maxilla, External Approach (ICD-10-PCS; 2017-06-15)
PROC: 0NQSXZZ (ICD-10-PCS; 2017-06-15)
PROC: 0CDXXZ1 Extraction of Lower Tooth, Multiple, External Approach (ICD-10-PCS; principal; 2017-06-15 13:15)
DX: K02.9 Dental caries, unspecified (principal); K05.30 Chronic periodontitis, unspecified; M19.90 Unspecified osteoarthritis, unspecified site; G40.909 Epilepsy, unspecified, not intractable, without status epilepticus; M32.9 Systemic lupus erythematosus, unspecified; Z79.01 Long term (current) use of anticoagulants; Z88.2 Allergy status to sulfonamides; Z88.5 Allergy status to narcotic agent; Z88.8 Allergy status to other drugs, medicaments and biological substances; Z79.899 Other long term (current) drug therapy; Z86.711 Personal history of pulmonary embolism
CPT/HCPCS: 41899; 93005; 36415 ×2; 85025; 85610; 85730; 81025; 80048; 93010; 41874 ×4; J2250; A9270 ×3; J3490; J1100; J3010; J1170; J0330; J2405; J2704; J0131; 170

== ENCOUNTER 2017-07-19 06:58 | Emergency (ER) | payer MEDICARE, MEDICAID ==
[2017-07-19 07:54] LABS: APPEARANCE,URINE SLIGHTLY-CLOUDY; BILIRUBIN,URINE NEGATIVE (NEGATIVE); GLUCOSE, URINE NEGATIVE (NEGATIVE); KETONES,URINE NEGATIVE (NEGATIVE); LEUKOCYTE ESTERASE,URINE LARGE (NEGATIVE); NITRITE,URINE NEGATIVE (NEGATIVE); PROTEIN,URINE NEGATIVE (NEGATIVE); URINE SPECIFIC GRAVITY 1.008; UROBILINOGEN,URINE NEGATIVE mg/dL (<2.0)
[2017-07-19] MEDS ORDERED: NORMAL SALINE 1000 ML 1,000 ML IV ONE (08:12)
[2017-07-19] MEDS ORDERED: HYDROMORPHONE HCL INJ/PF 2 MG/ML AMPULE IV ONE ×2 (08:12→09:57)
[2017-07-19] MEDS ORDERED: ONDANSETRON HCL INJ/PF 4 MG/2 ML SDV IV ONE (08:12)
[2017-07-19 08:53] LABS: ABSOLUTE BASOPHILS # (AUTO) 0.1 10^3/uL (0.0-0.2); ABSOLUTE EOSINOPHILS # (AUTO) 0.2 10^3/uL (0.0-0.6); ABSOLUTE LYMPHOCYTES (AUTO) 1.4 10^3/uL (0.5-4.7); ABSOLUTE MONOCYTES (AUTO) 0.7 10^3/uL (0.1-1.4); ABSOLUTE NEUT (AUTO) 2.7 10^3/uL (1.7-8.2); BASOPHILS % (AUTO) 1.4 % (0-2); EOSINOPHILS % (AUTO) 4.6 % (0-6); HEMATOCRIT 29.5 % (36.0-47.0); HEMOGLOBIN 9.6 g/dL (12.0-15.5); HGB HCT DIFFERENCE -0.7; LYMPHOCYTES % (AUTO) 26.7 % (13-45); MEAN CORPUSCULAR HEMOGLOBIN 29.1 pg (27.0-33.4); MEAN CORPUSCULAR HGB CONC 32.5 g/dL (32.0-36.0); MEAN CORPUSCULAR VOLUME 90 fl (80-97); MONOCYTES % (AUTO) 14.3 % (3-13); RED BLOOD COUNT 3.29 10^6/uL (3.72-5.28); RED CELL DISTRIBUTION WIDTH 14.2 % (11.5-14.0); WHITE BLOOD COUNT 5.1 10^3/uL (4.0-10.5)
[2017-07-19 09:25] LABS: ALBUMIN 3.7 g/dL (3.5-5.0); ANION GAP 11 (5-19); ASPARTATE AMINO TRANSFERASE 18 U/L (14-36); BLOOD UREA NITROGEN 7 mg/dL (7-20); CALCIUM 8.9 mg/dL (8.4-10.2); CARBON DIOXIDE 24 mmol/L (22-30); CHLORIDE 106 mmol/L (98-107); CREATININE RESULT 0.39 mg/dL (0.52-1.25); GLUCOSE 107 mg/dL (75-110); POTASSIUM 4.5 mmol/L (3.6-5.0); SODIUM 140.5 mmol/L (137-145); TOTAL PROTEIN 10.2 g/dL (6.3-8.2)
[2017-07-19 09:26] LABS: ALANINE AMINOTRANSFERASE 15 U/L (9-52); ALKALINE PHOSPHATASE 150 U/L (38-126); BILIRUBIN,DIRECT 0.3 mg/dL (0.0-0.4); BILIRUBIN,TOTAL 0.3 mg/dL (0.2-1.3)
--- NOTE | 2017-07-19 10:01 | ER Document Report ---
ED General - General Chief Complaint: Nausea/Vomiting Stated Complaint: NAUSEA,LEG PAIN Time Seen by Provider: 07/19/17 07:47 Mode of Arrival: Ambulatory Information source: Patient Notes: Patient presents complaining of possible lupus flareup over the past 2 weeks. Patient states her symptoms worsened over the past 4 days. Patient does complain of pressure with urination, nausea and vomiting 2 episodes. Patient states due to her vomiting she has not been able to keep her chronic pain medication down. Patient complains of bilateral knee pain, low back pain and bladder pressure pain. Patient does complain of some urinary frequency. Patient denies any fever. Patient denies any chest pain, cough or cold symptoms. TRAVEL OUTSIDE OF THE [place] IN LAST 30 DAYS: No - HPI Onset: Other - 2 weeks, worse over the past 4 days Onset/Duration: Worse Quality of pain: Achy Pain Level: 4 Associated symptoms: Nausea, Vomiting, Other - Dysuria. denies: Chest pain, Nonproductive cough, Productive cough, Diarrhea, Fever Exacerbated by: Denies Relieved by: Denies Similar symptoms previously: Yes Recently seen / treated by doctor: No - Related Data Allergies/Adverse Reactions: shellfish derived Allergy (Severe, Verified 07/19/17 07:01) Anaphylaxis ketorolac tromethamine [From Toradol] Allergy (Intermediate, Verified 07/19/17 07:01) Hives morphine [Morphine] Allergy (Intermediate, Verified 07/19/17 07:01) Hives sulfamethoxazole [From Bactrim] Allergy (Unknown, Verified 07/19/17 07:01) Pruritis trimethoprim [From Bactrim] Allergy (Unknown, Verified 07/19/17 07:01) Pruritis belimumab [From Benlysta] Allergy (Verified 07/19/17 07:01) rash heparin Allergy (Verified 07/19/17 07:01) HIIT, No reaction with port flush Past Medical History - General Information source: Patient - Social History Smoking Status: Never Smoker Chew tobacco use (# tins/day): No Frequency of alcohol use: None Drug Abuse: None Occupation: None Lives with: Family Family History: Reviewed & Not Pertinent, Other - Lupus-mother - Past Medical History Cardiac Medical History: Reports: Hx DVT, Hx Hypertension - ON MEDS, Hx Pulmonary Embolism Denies: Hx Coronary Artery Disease, Hx Heart Attack, Hx Hypercholesterolemia Pulmonary Medical History: Reports: Hx Asthma - CHILDHOOD ASTHMA, Hx Pneumonia Denies: Hx Bronchitis, Hx COPD, Hx Tuberculosis Neurological Medical History: Reports: Hx Migraine, Hx Seizures - ON MEDS (MARCH 2017). Denies: Hx Cerebrovascular Accident Endocrine Medical History: Denies: Hx Diabetes Mellitus Type 1, Hx Diabetes Mellitus Type 2, Hx Hyperthyroidism, Hx Hypothyroidism Renal/ Medical History: Denies: Hx Peritoneal Dialysis GI Medical History: Reports: Hx Gastritis, Hx Gastroesophageal Reflux Disease, Hx Ulcer, Hx Endoscopy. Denies: Hx Cirrhosis, Hx Hepatitis Musculoskeltal Medical History: Reports Hx Arthritis - LUPUS Skin Medical History: Reports Hx Cellulitis Psychiatric Medical History: Reports: Hx Anxiety Denies: Hx Depression Infectious Medical History: Reports: Hx C-Diff, Hx MRSA. Denies: Hx Hepatitis Past Surgical History: Reports: Hx Abdominal Surgery - PEG tube, Other - PEG placement 2, Port-A-Cath. Denies: Hx Hysterectomy - Immunizations Immunizations up to date: Yes Hx Diphtheria, Pertussis, Tetanus Vaccination: Yes Hx Pneumococcal Vaccination: 10/04/14 Review of Systems - Review of Systems Constitutional: No symptoms reported. denies: Fever, Recent illness EENT: No symptoms reported Cardiovascular: No symptoms reported. denies: Chest pain Respiratory: No symptoms reported. denies: Cough, Short of breath Gastrointestinal: Abdominal pain, Nausea, Vomiting. denies: Diarrhea Genitourinary: Dysuria, Frequency. denies: Flank pain Female Genitourinary: Vaginal discharge. denies: Vaginal bleeding Musculoskeletal: Back pain - Chronic low back pain Skin: No symptoms reported Hematologic/Lymphatic: No symptoms reported Neurological/Psychological: No symptoms reported Physical Exam - Vital signs Vitals: Temp Pulse Resp BP Pulse Ox 98.3 F 62 18 151/109 H 100 07/19/17 07:05 07/19/17 07:05 07/19/17 07:05 07/19/17 07:05 07/19/17 07:05 - General General appearance: Appears well, Alert In distress: None - HEENT Head: Normocephalic, Atraumatic Eyes: Normal Nasal: Normal Mucous membranes: Normal Neck: Normal, Supple. No: Lymphadenopathy - Respiratory Respiratory status: No respiratory distress Chest status: Nontender. No: Tender Breath sounds: Normal. No: Rales, Rhonchi, Stridor, Wheezing Chest palpation: Normal - Cardiovascular Rhythm: Regular Heart sounds: S1 appreciated, S2 appreciated Murmur: No - Abdominal Inspection: Other - scars to abd from prior peg tube Distension: No distension Bowel sounds: Normal Tenderness: Tender - suprapubic Organomegaly: No organomegaly - Back Back: Tender - lumbar paraspinal. No: CVA tenderness - Extremities General upper extremity: Normal inspection, Normal ROM General lower extremity: Normal inspection, Tender, Normal color, Normal ROM, Normal strength, Normal temperature - Bilateral knee joint tenderness. No: Edema, Darby's sign - Neurological Neuro grossly intact: Yes Cognition: Normal Shawn Coma Scale Eye Opening: Spontaneous [place] Coma Scale Verbal: Oriented Shawn Coma Scale Motor: Obeys Commands Shawn Coma Scale Total: 15 - Psychological Associated symptoms: Normal affect, Normal mood - Skin Skin Temperature: Warm Skin Moisture: Dry Skin Color: Normal Course - Re-evaluation Re-evalutation: 07/19/17 10:00 Patient again asking for additional pain medication for her low back, shoulder and lower pelvic pain. Patient states that her leg pain is improved at this time. Patient continues with mild suprapubic tenderness, no guarding. Patient does report vaginal discharge, pelvic examination ordered. 07/19/17 13:[address] Graf regarding patient presentation, agrees with discharge plan of care. - Vital Signs Vital signs: Temp Pulse Resp BP Pulse Ox 98.4 F 78 18 112/79 97 07/19/17 13:46 07/19/17 13:46 07/19/17 09:46 07/19/17 13:46 07/19/17 13:46 - Laboratory Result Diagrams: 07/19/17 08:45 07/19/17 08:45 Laboratory results interpreted by me: 07/19/17 07/19/17 07/19/17 07:31 08:45 08:45 RBC 3.29 L Hgb 9.6 L Hct 29.5 L RDW 14.2 H Monocytes % 14.3 H Creatinine 0.39 L Alkaline Phosphatase 150 H Total Protein 10.2 H Ur Leukocyte Esterase LARGE H 07/19/17 13:33 Labs- Entire Visit 07/19/17 07/19/17 07/19/17 07:31 07:31 08:45 WBC 5.1 RBC 3.29 L Hgb 9.6 L Hct 29.5 L MCV 90 MCH 29.1 MCHC 32.5 RDW 14.2 H Plt Count 269 Seg Neutrophils % 53.0 Lymphocytes % 26.7 Monocytes % 14.3 H Eosinophils % 4.6 Basophils % 1.4 Absolute Neutrophils 2.7 Absolute Lymphocytes 1.4 Absolute Monocytes 0.7 Absolute Eosinophils 0.2 Absolute Basophils 0.1 Sodium Potassium Chloride Carbon Dioxide Anion Gap BUN Creatinine Est GFR ( Amer) Est GFR (Non-Af Amer) Glucose Calcium Total Bilirubin Direct Bilirubin Indirect Bilirubin Neonat Total Bilirubin AST ALT Alkaline Phosphatase Total Protein Albumin Serum HCG, Qual Urine Color YELLOW Urine Appearance SLIGHTLY-CLOUDY Urine pH 7.0 Ur Specific [place] 1.008 Urine Protein NEGATIVE Urine Glucose (UA) NEGATIVE Urine Ketones NEGATIVE Urine Blood NEGATIVE Urine Nitrite NEGATIVE Urine Bilirubin NEGATIVE Urine Urobilinogen NEGATIVE Ur Leukocyte Esterase LARGE H Urine WBC (Auto) 10 Urine RBC (Auto) 4 Urine Bacteria (Auto) TRACE Squamous Epi Cells Auto 7 Urine Mucus (Auto) RARE Urine Ascorbic Acid NEGATIVE Bacteria (Wet Prep) Trichomonas (Wet Prep) Vaginal WBC Vaginal RBC Vaginal Yeast Urine Opiates Screen UNCONFIRMED POSITIVE Urine Methadone Screen NEGATIVE Ur Barbiturates Screen UNCONFIRMED POSITIVE Ur Phencyclidine Scrn NEGATIVE Ur Amphetamines Screen NEGATIVE U Benzodiazepines Scrn NEGATIVE Urine Cocaine Screen NEGATIVE U Marijuana (THC) Screen NEGATIVE Chlamydia DNA (PCR) N.gonorrhoeae DNA (PCR) 07/19/17 07/19/17 07/19/17 08:45 08:45 11:07 WBC RBC Hgb Hct MCV MCH MCHC RDW Plt Count Seg Neutrophils % Lymphocytes % Monocytes % Eosinophils % Basophils % Absolute Neutrophils Absolute Lymphocytes Absolute Monocytes Absolute Eosinophils Absolute Basophils Sodium 140.5 Potassium 4.5 Chloride 106 Carbon Dioxide 24 Anion Gap 11 BUN 7 Creatinine 0.39 L Est GFR ( Amer) > 60 Est GFR (Non-Af Amer) > 60 Glucose 107 Calcium 8.9 Total Bilirubin 0.3 Direct Bilirubin 0.3 Indirect Bilirubin Not Reportable Neonat Total Bilirubin Not Reportable AST 18 ALT 15 Alkaline Phosphatase 150 H Total Protein 10.2 H Albumin 3.7 Serum HCG, Qual NEGATIVE Urine Color Urine Appearance Urine pH Ur Specific [place] Urine Protein Urine Glucose (UA) Urine Ketones Urine Blood Urine Nitrite Urine Bilirubin Urine Urobilinogen Ur Leukocyte Esterase Urine WBC (Auto) Urine RBC (Auto) Urine Bacteria (Auto) Squamous Epi Cells Auto Urine Mucus (Auto) Urine Ascorbic Acid Bacteria (Wet Prep) Trichomonas (Wet Prep) Vaginal WBC Vaginal RBC Vaginal Yeast Urine Opiates Screen Urine Methadone Screen Ur Barbiturates Screen Ur Phencyclidine Scrn Ur Amphetamines Screen U Benzodiazepines Scrn Urine Cocaine Screen U Marijuana (THC) Screen Chlamydia DNA (PCR) NOT DETECTED N.gonorrhoeae DNA (PCR) NOT DETECTED 07/19/17 11:07 WBC RBC Hgb Hct MCV MCH MCHC RDW Plt Count Seg Neutrophils % Lymphocytes % Monocytes % Eosinophils % Basophils % Absolute Neutrophils Absolute Lymphocytes Absolute Monocytes Absolute Eosinophils Absolute Basophils Sodium Potassium Chloride Carbon Dioxide Anion Gap BUN Creatinine Est GFR ( Amer) Est GFR (Non-Af Amer) Glucose Calcium Total Bilirubin Direct Bilirubin Indirect Bilirubin Neonat Total Bilirubin AST ALT Alkaline Phosphatase Total Protein Albumin Serum HCG, Qual Urine Color Urine Appearance Urine pH Ur Specific [place] Urine Protein Urine Glucose (UA) Urine Ketones Urine Blood Urine Nitrite Urine Bilirubin Urine Urobilinogen Ur Leukocyte Esterase Urine WBC (Auto) Urine RBC (Auto) Urine Bacteria (Auto) Squamous Epi Cells Auto Urine Mucus (Auto) Urine Ascorbic Acid Bacteria (Wet Prep) 4+ BACTERIA SEEN Trichomonas (Wet Prep) NO TRICHOMONAS SEEN Vaginal WBC 1+ WBCS SEEN Vaginal RBC 2+ RBCS SEEN Vaginal Yeast NO YEAST SEEN Urine Opiates Screen Urine Methadone Screen Ur Barbiturates Screen Ur Phencyclidine Scrn Ur Amphetamines Screen U Benzodiazepines Scrn Urine Cocaine Screen U Marijuana (THC) Screen Chlamydia DNA (PCR) N.gonorrhoeae DNA (PCR) Discharge - Discharge Clinical Impression: Vaginal discharge, Urinary symptom or sign, History of lupus, History of chronic pain Nausea and vomiting Qualifiers: Vomiting type: unspecified Vomiting Intractability: unspecified Qualified Code( s): R11.2 - Nausea with vomiting, unspecified Condition: Stable Disposition: HOME, SELF-CARE Instructions: Cephalexin ([facility]), Chronic Pain Control ([facility]), Intravenous (IV) Fluids ([facility]), Urinary Tract Infection ([facility]), Vomiting ([facility]) Additional Instructions: Return immediately for any new or worsening symptoms Followup with your primary care provider, call tomorrow to make a followup appointment Take your nausea medication and pain medication at home as prescribed Cultures are pending, we will call if you need any different treatment Follow-up with a tube cutter for further evaluation of vaginal area discomfort Prescriptions: Cephalexin Monohydrate [Keflex 500 mg Capsule] 500 mg PO Q6H 7 Days capsule Referrals: ZAIRA ELI MD [COMMUNITY BASED STAFF] - Follow up tomorrow [facility] [Provider Group] - Follow up tomorrow
[2017-07-19 11:32] LABS: URINE BARBITURATES SCREEN UNCONFIRMED POSITIVE; URINE METHADONE SCREEN NEGATIVE; URINE OPIATES LOW UNCONFIRMED POSITIVE; URINE PHENCYCLIDINE SCREEN NEGATIVE
[2017-07-19 13:15] LABS: CHLAM PCR NOT DETECTED (NOT DETECT)
[2017-07-19 14:07] VITALS: BP 112/79
== END 2017-07-19 14:05 | disposition home or self-care (01) ==
LOC: ER 06:58
DX: R11.2 Nausea with vomiting, unspecified (principal); N89.8 Other specified noninflammatory disorders of vagina; R39.198 Other difficulties with micturition; R30.9 Painful micturition, unspecified; R35.0 Frequency of micturition; Z87.39 Personal history of other diseases of the musculoskeletal system and connective tissue
CPT/HCPCS: 36591; 96376; 99284; 96361; 96374; 96375; 36415; 87086; 87070; 87205; 87210; 84703; 85025; 87077; 80053; 81001; 87250; 80307; 87491; 87591; J1170; J2405; J7030; 87186

== ENCOUNTER 2017-07-24 08:44 | Emergency (ER) | payer MEDICARE, MEDICAID ==
[2017-07-24] MEDS ORDERED: ONDANSETRON HCL INJ/PF 4 MG/2 ML SDV IV ONE ×2 (09:17→11:32)
[2017-07-24 09:28] LABS: ABSOLUTE BASOPHILS # (AUTO) 0.1 10^3/uL (0.0-0.2); ABSOLUTE EOSINOPHILS # (AUTO) 0.1 10^3/uL (0.0-0.6); ABSOLUTE LYMPHOCYTES (AUTO) 1.4 10^3/uL (0.5-4.7); ABSOLUTE MONOCYTES (AUTO) 0.6 10^3/uL (0.1-1.4); ABSOLUTE NEUT (AUTO) 5.1 10^3/uL (1.7-8.2); BASOPHILS % (AUTO) 1.1 % (0-2); EOSINOPHILS % (AUTO) 0.7 % (0-6); HEMATOCRIT 30.3 % (36.0-47.0); HEMOGLOBIN 10.1 g/dL (12.0-15.5); MEAN CORPUSCULAR HEMOGLOBIN 29.9 pg (27.0-33.4); MEAN CORPUSCULAR HGB CONC 33.5 g/dL (32.0-36.0); MEAN CORPUSCULAR VOLUME 89 fl (80-97); RED BLOOD COUNT 3.39 10^6/uL (3.72-5.28); RED CELL DISTRIBUTION WIDTH 14.2 % (11.5-14.0); SEGMENTED NEUTROPHILS % (AUTO) 71.2 % (42-78); WHITE BLOOD COUNT 7.2 10^3/uL (4.0-10.5)
[2017-07-24] MEDS ORDERED: NORMAL SALINE 1000 ML 1,000 ML IV ONE ×2 (09:30→10:56)
[2017-07-24 09:50] LABS: ALANINE AMINOTRANSFERASE 15 U/L (9-52); ALBUMIN 3.7 g/dL (3.5-5.0); ALKALINE PHOSPHATASE 171 U/L (38-126); ANION GAP 13 (5-19); ASPARTATE AMINO TRANSFERASE 18 U/L (14-36); BILIRUBIN,DIRECT 0.4 mg/dL (0.0-0.4); BILIRUBIN,TOTAL 0.4 mg/dL (0.2-1.3); BLOOD UREA NITROGEN 9 mg/dL (7-20); CALCIUM 8.8 mg/dL (8.4-10.2); CARBON DIOXIDE 20 mmol/L (22-30); CHLORIDE 108 mmol/L (98-107); CREATININE RESULT 0.44 mg/dL (0.52-1.25); GLUCOSE 108 mg/dL (75-110); LIPASE 27.6 U/L (23-300); POTASSIUM 4.1 mmol/L (3.6-5.0); SODIUM 141.3 mmol/L (137-145); TOTAL PROTEIN 10.5 g/dL (6.3-8.2)
[2017-07-24 09:51] LABS: APPEARANCE,URINE SLIGHTLY-CLOUDY; BILIRUBIN,URINE NEGATIVE (NEGATIVE); GLUCOSE, URINE NEGATIVE (NEGATIVE); KETONES,URINE NEGATIVE (NEGATIVE); LEUKOCYTE ESTERASE,URINE LARGE (NEGATIVE); NITRITE,URINE NEGATIVE (NEGATIVE); PROTEIN,URINE 30 mg/dL (NEGATIVE); URINE SPECIFIC GRAVITY 1.011; UROBILINOGEN,URINE NEGATIVE mg/dL (<2.0)
--- NOTE | 2017-07-24 09:57 | ER Document Report ---
ED General - General Chief Complaint: Seizure Stated Complaint: POSSIBLE SEIZURE Time Seen by Provider: 07/24/17 09:12 Mode of Arrival: Ambulatory Information source: Patient Notes: patient presents to the ED for c/o 2 seizures, nausea/vomiting, decreased appetite, and whole body pain. History of lupus seizures PE. Patient reports she has been taking her Keppra as prescribed. Hx seizures for one year, last seizure was in January. Patient also reports she takes oxycodone for her pain. Patient reports last night she had a seizure while driving a car with her mother. She reports she was out for approximately 5 minutes. She also reports that early this morning she fell and hit her head and also had another seizure. She reports nausea vomiting for the past 2 days. History of chronic pain. Denies diarrhea. Denies urinary frequency. TRAVEL OUTSIDE OF THE [place] IN LAST 30 DAYS: No - HPI Onset: Other - 2 days Quality of pain: Achy Severity: Severe Pain Level: 5 Associated symptoms: Nausea, Vomiting Exacerbated by: Denies Relieved by: Denies Similar symptoms previously: Yes Recently seen / treated by doctor: No - Related Data Allergies/Adverse Reactions: shellfish derived Allergy (Severe, Verified 07/24/17 08:48) Anaphylaxis ketorolac tromethamine [From Toradol] Allergy (Intermediate, Verified 07/24/17 08:48) Hives morphine [Morphine] Allergy (Intermediate, Verified 07/24/17 08:48) Hives sulfamethoxazole [From Bactrim] Allergy (Unknown, Verified 07/24/17 08:48) Pruritis trimethoprim [From Bactrim] Allergy (Unknown, Verified 07/24/17 08:48) Pruritis belimumab [From Benlysta] Allergy (Verified 07/24/17 08:48) rash heparin Allergy (Verified 07/24/17 08:48) HIIT, No reaction with port flush Past Medical History - General Information source: Patient Last Menstrual Period: years ago - Social History Smoking Status: Never Smoker Cigarette use (# per day): No Frequency of alcohol use: None Drug Abuse: None Lives with: Family Family History: Reviewed & Not Pertinent, Other - Lupus-mother - Past Medical History Cardiac Medical History: Reports: Hx DVT, Hx Hypertension - ON MEDS, Hx Pulmonary Embolism Denies: Hx Coronary Artery Disease, Hx Heart Attack, Hx Hypercholesterolemia Pulmonary Medical History: Reports: Hx Asthma - CHILDHOOD ASTHMA, Hx Pneumonia Denies: Hx Bronchitis, Hx COPD, Hx Tuberculosis Neurological Medical History: Reports: Hx Migraine, Hx Seizures - ON MEDS (MARCH 2017). Denies: Hx Cerebrovascular Accident Endocrine Medical History: Denies: Hx Diabetes Mellitus Type 1, Hx Diabetes Mellitus Type 2, Hx Hyperthyroidism, Hx Hypothyroidism Renal/ Medical History: Denies: Hx Peritoneal Dialysis GI Medical History: Reports: Hx Gastritis, Hx Gastroesophageal Reflux Disease, Hx Ulcer, Hx Endoscopy. Denies: Hx Cirrhosis, Hx Hepatitis Musculoskeltal Medical History: Reports Hx Arthritis - LUPUS Skin Medical History: Reports Hx Cellulitis Psychiatric Medical History: Reports: Hx Anxiety Denies: Hx Depression Infectious Medical History: Reports: Hx C-Diff, Hx MRSA. Denies: Hx Hepatitis Past Surgical History: Reports: Hx Abdominal Surgery - PEG tube, Other - PEG placement 2, Port-A-Cath. Denies: Hx Hysterectomy - Immunizations Immunizations up to date: Yes Hx Diphtheria, Pertussis, Tetanus Vaccination: Yes Hx Pneumococcal Vaccination: 10/04/14 Physical Exam - Vital signs Vitals: Temp Pulse Resp BP Pulse Ox 98.6 F 154 H 24 H 128/94 H 100 07/24/17 08:52 07/24/17 08:52 07/24/17 08:52 07/24/17 08:52 07/24/17 08:52 - Notes Notes: PHYSICAL EXAMINATION: GENERAL: Well-appearing and in no acute distress HEAD: Atraumatic, normocephalic. EYES: Pupils equal round and reactive to light, extraocular movements intact, sclera anicteric, conjunctiva are normal. linear ecchymosis across upper left eyelid, no warmth, swelling. ENT: nares patent, Moist mucous membranes. NECK: Normal range of motion, supple without lymphadenopathy LUNGS: CTAB and equal. No wheezes rales or rhonchi. HEART: Regular rate and rhythm without murmurs ABDOMEN: Soft, no tenderness. No guarding, no rebound EXTREMITIES: Normal range of motion, no pitting edema. No cyanosis. NEUROLOGICAL: Cranial nerves grossly intact. Normal sensory/motor exams. PSYCH: Normal mood, normal affect. SKIN: Warm, Dry, normal turgor, no rashes or lesions noted Course - Re-evaluation Re-evalutation: 07/24/17 10:25 Reports she is feeling better, pain decreased, hands feel itchy, benadryl ordered. CT negative, labs unremarkable compared to [facility]. will attempt PO fluids 07/24/17 11:33 Patient vomited. Denies abdominal pain. reports nausea, zofran, reports body achy. ST 07/24/17 12:[address] norris, he advised haldol, benadryl , pt updated , denies allergy. 07/24/17 13:29 Patient reports she feels much better no further vomiting will attempt p.o. fluids 07/24/17 14:03 Patient drink 2 glasses of water reports no nausea reports she feels much better. Be discharged home. - Vital Signs Vital signs: Temp Pulse Resp BP Pulse Ox 97.8 F 154 H 18 113/85 97 07/24/17 14:16 07/24/17 08:52 07/24/17 14:16 07/24/17 14:16 07/24/17 14:15 - Laboratory Result Diagrams: 07/24/17 09:12 07/24/17 09:12 Laboratory results interpreted by me: 07/24/17 07/24/17 07/24/17 09:12 09:12 09:35 RBC 3.39 L Hgb 10.1 L Hct 30.3 L RDW 14.2 H Chloride 108 H Carbon Dioxide 20 L Creatinine 0.44 L Alkaline Phosphatase 171 H Total Protein 10.5 H Urine Protein 30 H Ur Leukocyte Esterase LARGE H Urine Ascorbic Acid 20 H - Diagnostic Test Radiology reviewed: Image reviewed, Reports reviewed - IMPRESSION: No significant intracranial abnormalities were identified. Other findings as noted above EVIDENCE OF ACUTE STROKE: NO Discharge - Discharge Clinical Impression: Nausea & vomiting, Generalized pain, History of seizures Condition: Stable Disposition: HOME, SELF-CARE Instructions: Intravenous (IV) Fluids ([facility]), Vomiting ([facility]) Additional Instructions: *You have been evaluated for nausea/vomiting, generalized pain, history of seizures *Take your medication as prescribed *Ensure adequate fluid intake to prevent dehydration *Follow up with a primary care provider Wednesday *Return to ED for worsening condition, changes, needs Referrals: FAIZAN HENDRIX MD [Primary Care Provider] - Follow up in 3-5 days
--- NOTE | 2017-07-24 10:05 | RADIOLOGY REPORT (SQ) ---
EXAM DESCRIPTION: CT HEAD WITHOUT COMPLETED DATE/TIME: 07/24/2017 9:41 am REASON FOR STUDY: fall, hit head COMPARISON: None. TECHNIQUE: Axial images acquired through the brain without intravenous contrast. Images reviewed wi th bone, brain and subdural windows. Images stored on PACS. All CT scanners at this facility use dose modulation, iterative reconstruction, and/or weight based d osing when appropriate to reduce radiation dose to as low as reasonably achievable (ALARA). [facility]: Dose Right [facility]: CareDose [facility]: Dose Right [facility]: Teradose 4D [facility]: Smart TxVia RADIATION DOSE: Up-to-date CT equipment and radiation dose reduction techniques were employed. CTDIv ol: 64.6 mGy. DLP: 1163 mGy-cm. mGy. LIMITATIONS: None. FINDINGS: VENTRICLES: Normal size and contour. CEREBRUM: No masses. No hemorrhage. No midline shift. No evidence for acute infarction. Normal gra y/white matter differentiation. No areas of low density in the white matter. CEREBELLUM: No masses. No hemorrhage. No alteration of density. No evidence for acute infarction. EXTRAAXIAL SPACES: No fluid collections. No masses. ORBITS AND GLOBE: No intra- or extraconal masses. Normal contour of globe without masses. CALVARIUM: No fracture. PARANASAL SINUSES: No fluid or mucosal thickening. SOFT TISSUES: No mass or hematoma. OTHER: There is diffuse heterogeneous density in the parotid salivary glands of uncertain etiology or significance P IMPRESSION: No significant intracranial abnormalities were identified. Other findings as noted abov e EVIDENCE OF ACUTE STROKE: NO. COMMENT: Quality ID # [id number]: Final reports with documentation of one or more dose reduction techniques (e.g., Automated exposure control, adjustment of the mA and/or kV according to patient size, use of iterative reconstruction technique) TECHNICAL DOCUMENTATION: JOB ID: [id number] [employer]- All Rights Reserved
[2017-07-24] MEDS ORDERED: HYDROMORPHONE HCL INJ/PF 2 MG/ML AMPULE IV ONE ×2 (10:10→11:27)
[2017-07-24] MEDS ORDERED: DIPHENHYDRAMINE HCL 50 MG/ML VIAL IV ONE ×2 (10:24→12:01)
[2017-07-24] MEDS ORDERED: HALOPERIDOL LACTATE INJ 5 MG/1 ML VIAL IV ONE (11:58)
[2017-07-24 14:24] VITALS: BP 113/85
[2017-07-24] MEDS ORDERED: HYDROCODONE/ACETAMINOPHEN 5-325 MG TABLET PO PRN ×2 (14:32)
== END 2017-07-24 14:44 | disposition home or self-care (01) ==
LOC: ER 08:44
DX: R11.2 Nausea with vomiting, unspecified (principal); R52 Pain, unspecified; R56.9 Unspecified convulsions; R63.0 Anorexia; G89.29 Other chronic pain; Z79.899 Other long term (current) drug therapy; W19.XXXA Unspecified fall, initial encounter; I10 Essential (primary) hypertension
CPT/HCPCS: 36591; 96376; 99284; 96374; 96375; 36415; 80177; 83690; 84703; 85025; 80053; 81001; 70450; J1200; J1630; J1170; J2405; J7030

== ENCOUNTER 2017-10-23 09:19 | Inpatient (IN) | payer MEDICARE, MEDICAID ==
[2017-10-23] MEDS ORDERED: NORMAL SALINE 1000 ML 1,000 ML IV ONE (09:37)
--- NOTE | 2017-10-23 09:37 | ER Document Report ---
ED Medical Screen (RME) - General Chief Complaint: Headache Stated Complaint: NECK PAIN Time Seen by Provider: 10/23/17 09:33 Mode of Arrival: Ambulatory Information source: Patient Notes: 22-year-old female presenting to the emergency department today with complaints of nausea, vomiting, and dysuria. Patient had a recent neck fracture secondary to a seizure. Patient is on Keppra. Patient states she is unable to keep down her medications secondary to vomiting. Patient also mentions chest pain. Patient states she had her halo tightened two days ago and usually does not develop pain with this but she has this time. Patient states she was unable to get [facility] so her doctor told her to come here. TRAVEL OUTSIDE OF THE [place] IN LAST 30 DAYS: No - Related Data Allergies/Adverse Reactions: shellfish derived Allergy (Severe, Verified 07/24/17 08:48) Anaphylaxis ketorolac tromethamine [From Toradol] Allergy (Intermediate, Verified 07/24/17 08:48) Hives morphine [Morphine] Allergy (Intermediate, Verified 07/24/17 08:48) Hives sulfamethoxazole [From Bactrim] Allergy (Unknown, Verified 07/24/17 08:48) Pruritis trimethoprim [From Bactrim] Allergy (Unknown, Verified 07/24/17 08:48) Pruritis belimumab [From Benlysta] Allergy (Verified 07/24/17 08:48) rash heparin Allergy (Verified 07/24/17 08:48) HIIT, No reaction with port flush Past Medical History - General Information source: [facility] Records - Social History Chew tobacco use (# tins/day): No Frequency of alcohol use: Occasional Drug Abuse: None - Past Medical History Cardiac Medical History: Reports: Hx DVT, Hx Hypertension - ON MEDS, Hx Pulmonary Embolism Pulmonary Medical History: Reports: Hx Asthma - CHILDHOOD ASTHMA, Hx Pneumonia Neurological Medical History: Reports: Hx Migraine, Hx Seizures - ON MEDS (MARCH 2017) GI Medical History: Reports: Hx Gastritis, Hx Gastroesophageal Reflux Disease, Hx Ulcer, Hx Endoscopy Musculoskeltal Medical History: Reports Hx Arthritis - LUPUS Skin Medical History: Reports Hx Cellulitis Psychiatric Medical History: Reports: Hx Anxiety Infectious Medical History: Reports: Hx C-Diff, Hx MRSA Past Surgical History: Reports: Hx Abdominal Surgery - PEG tube, Other - PEG placement 2, Port-A-Cath. Denies: Hx Hysterectomy - Immunizations Immunizations up to date: Yes Hx Diphtheria, Pertussis, Tetanus Vaccination: Yes Review of Systems - Review of Systems Cardiovascular: See HPI, Chest pain Gastrointestinal: See HPI, Nausea, Vomiting Genitourinary: See HPI, Dysuria Physical Exam - Vital signs Vitals: Temp Pulse Resp BP Pulse Ox 98.7 F 130 H 16 148/97 H 98 10/23/17 09:24 10/23/17 09:24 10/23/17 09:24 10/23/17 09:24 10/23/17 09:24 - HEENT Head: Other - wearing halo - Respiratory Respiratory status: No respiratory distress Chest status: Nontender Breath sounds: Normal - Cardiovascular Rhythm: Tachycardia Course - Vital Signs Vital signs: Temp Pulse Resp BP Pulse Ox 98.7 F 130 H 16 148/97 H 98 10/23/17 09:24 10/23/17 09:24 10/23/17 09:24 10/23/17 09:24 10/23/17 09:24 Scribe Documentation - Scribe Written by Zeyad:: Zeyad Watson, 10/23/2017 [id number] acting as scribe for :: Samra
[2017-10-23] MEDS ORDERED: ONDANSETRON HCL INJ/PF 4 MG/2 ML SDV IV ONE ×2 (09:38→11:39)
[2017-10-23 10:21] LABS: APPEARANCE,URINE CLEAR; BILIRUBIN,URINE NEGATIVE (NEGATIVE); COLOR,URINE YELLOW; GLUCOSE, URINE NEGATIVE (NEGATIVE); KETONES,URINE NEGATIVE (NEGATIVE); LEUKOCYTE ESTERASE,URINE MODERATE (NEGATIVE); NITRITE,URINE NEGATIVE (NEGATIVE); PROTEIN,URINE NEGATIVE (NEGATIVE); UROBILINOGEN,URINE NEGATIVE mg/dL (<2.0)
[2017-10-23] MEDS ORDERED: RINGERS SOLUTION,LACTATED 1,000 ML IV ONE (11:37)
[2017-10-23] MEDS ORDERED: HYDROMORPHONE HCL INJ/PF 2 MG/ML AMPULE IV ONE ×2 (11:38→13:41)
[2017-10-23 11:41] LABS: ABSOLUTE BASOPHILS # (AUTO) 0.1 10^3/uL (0.0-0.2); ABSOLUTE EOSINOPHILS # (AUTO) 0.1 10^3/uL (0.0-0.6); ABSOLUTE LYMPHOCYTES (AUTO) 1.1 10^3/uL (0.5-4.7); ABSOLUTE MONOCYTES (AUTO) 0.7 10^3/uL (0.1-1.4); ABSOLUTE NEUT (AUTO) 6.4 10^3/uL (1.7-8.2); BASOPHILS % (AUTO) 0.7 % (0-2); EOSINOPHILS % (AUTO) 1.2 % (0-6); HEMATOCRIT 28.4 % (36.0-47.0); HEMOGLOBIN 9.4 g/dL (12.0-15.5); LYMPHOCYTES % (AUTO) 13.5 % (13-45); MEAN CORPUSCULAR HGB CONC 33.1 g/dL (32.0-36.0); MEAN CORPUSCULAR VOLUME 85 fl (80-97); MONOCYTES % (AUTO) 8.3 % (3-13); PLATELET COUNT 322 10^3/uL (150-450); RED BLOOD COUNT 3.35 10^6/uL (3.72-5.28); RED CELL DISTRIBUTION WIDTH 16.2 % (11.5-14.0); SEGMENTED NEUTROPHILS % (AUTO) 76.3 % (42-78); TOTAL CELLS COUNTED % (AUTO) 100 %; WHITE BLOOD COUNT 8.4 10^3/uL (4.0-10.5)
--- NOTE | 2017-10-23 11:44 | ER Document Report ---
ED General - General Chief Complaint: Headache Stated Complaint: NECK PAIN Time Seen by Provider: 10/23/17 09:33 Mode of Arrival: Ambulatory Notes: Patient says that she is having pain in her back and head and neck for the past few days. She has had nausea and vomiting since Wednesday and has been unable to keep any of her medications down. She has vomited 4 times today. Has had some loose stools, though not diarrhea. No blood in her stools or vomitus. Says she has some pain on the right side of her chest which she attributes to eating when she is fallen. Patient is wearing a cervical spine halo to immobilize her C-spine which she fractured in a fall on July 23. Her diagnosis was established on August 06 and she had surgery August 10. She is supposed to wear this halo for another 3 weeks. Her condition is worsened by the fact that she has seizures. She has a history of lupus and high blood pressure and has had blood clots in her legs as well as pulmonary emboli. Currently complaining of continued nausea and vomiting, pains in her chest, neck , head, back. Currently on Arixtra 7.5 mg twice a day. History of lupus. Has seizures weekly. On Keppra. TRAVEL OUTSIDE OF THE [place] IN LAST 30 DAYS: No - Related Data Allergies/Adverse Reactions: shellfish derived Allergy (Severe, Verified 07/24/17 08:48) Anaphylaxis ketorolac tromethamine [From Toradol] Allergy (Intermediate, Verified 07/24/17 08:48) Hives morphine [Morphine] Allergy (Intermediate, Verified 07/24/17 08:48) Hives sulfamethoxazole [From Bactrim] Allergy (Unknown, Verified 07/24/17 08:48) Pruritis trimethoprim [From Bactrim] Allergy (Unknown, Verified 07/24/17 08:48) Pruritis belimumab [From Benlysta] Allergy (Verified 07/24/17 08:48) rash heparin Allergy (Verified 07/24/17 08:48) HIIT, No reaction with port flush Past Medical History - General Information source: [facility] Records - Social History Smoking Status: Never Smoker Chew tobacco use (# tins/day): No Frequency of alcohol use: Occasional Drug Abuse: None Family History: Reviewed & Not Pertinent, Other - Lupus-mother Patient has suicidal ideation: No Patient has homicidal ideation: No - Past Medical History Cardiac Medical History: Reports: Hx DVT, Hx Hypertension - ON MEDS, Hx Pulmonary Embolism Pulmonary Medical History: Reports: Hx Asthma - CHILDHOOD ASTHMA, Hx Pneumonia Neurological Medical History: Reports: Hx Migraine, Hx Seizures - ON MEDS (MARCH 2017) GI Medical History: Reports: Hx Gastritis, Hx Gastroesophageal Reflux Disease, Hx Ulcer, Hx Endoscopy Musculoskeltal Medical History: Reports Hx Arthritis - LUPUS Skin Medical History: Reports Hx Cellulitis Psychiatric Medical History: Reports: Hx Anxiety Infectious Medical History: Reports: Hx C-Diff, Hx MRSA. Denies: Hx Hepatitis Past Surgical History: Reports: Hx Abdominal Surgery - PEG tube, Other - PEG placement 2, Port-A-Cath - Immunizations Immunizations up to date: Yes Hx Diphtheria, Pertussis, Tetanus Vaccination: Yes Hx Pneumococcal Vaccination: 10/04/14 Review of Systems - Review of Systems Notes: REVIEW OF SYSTEMS: CONSTITUTIONAL : Denies fever, but has had sweats. EENT: Denies eye, ear, nose or mouth or throat pain or other symptoms. CARDIOVASCULAR: Denies chest pain, although she does have some discomfort in the right breast region. Not sure if she injured herself there falling with seizures.. RESPIRATORY: Denies cough, chest congestion, or shortness of breath. GASTROINTESTINAL: Denies abdominal pain, but is having vomiting as well as loose stools. GENITOURINARY: Denies difficulty or painful urinating, urinary frequency, blood in urine. MUSCULOSKELETAL: Has diffuse back pain, primarily in the lumbar region. Denies joint pain or swelling. SKIN: Denies rash or skin lesions. NEUROLOGICAL: Denies LOC or altered mental status. denies sensory loss or motor deficits. ALL OTHER SYSTEMS REVIEWED AND NEGATIVE. Physical Exam - Vital signs Vitals: Temp Pulse Resp BP Pulse Ox 98.7 F 130 H 16 148/97 H 98 10/23/17 09:24 10/23/17 09:24 10/23/17 09:24 10/23/17 09:24 10/23/17 09:24 Interpretation: Tachycardic. No: Febrile - Notes Notes: PHYSICAL EXAMINATION: GENERAL: Patient is wearing a surgical halo device for cervical spinal immobilization. She also has a port of the upper left chest. HEAD: Atraumatic, normocephalic. Except for the described halo device attached to the head. EYES: Pupils equal round and reactive to light, extraocular movements intact. ENT: oropharynx clear without exudates. Moist mucous membranes. NECK: Immobilized with surgically placed halo. LUNGS: Breath sounds clear and equal bilaterally. HEART: Regular rate and rhythm without murmurs. Heart rate about 125 at bedside by me. ABDOMEN: Soft, nontender. No guarding or rebound. No masses. BACK: Minor tenderness throughout entire back. EXTREMITIES: Normal range of motion without pain. NEUROLOGICAL: Normal speech, Normal sensory, motor, and reflex exams. Awake, alert, and oriented x3. PSYCH: Normal mood, normal affect. SKIN: Warm, dry, no rashes. Course - Re-evaluation Re-evalutation: 10/23/17 14:24 Patient continues to complain of pain everywhere. Her CBC is normal. Urinalysis has moderate leukocyte positive suggesting possible UTI. Patient has not been able to keep down anything at home for the past couple of days. She has not been able to keep down her seizure medicine, blood pressure medicine , pain medication, lupus medication, etc. Blood pressures are running in the 190s systolic. Heart rate has slowed somewhat from the initial 130 to about 122 on an EKG at this time. 10/23/17 15:15 Patient was not able to keep down her oral medications that I gave her for her blood pressure and seizures. Heart rate has improved to 122. I have spoken with the hospitalist on who will admit the patient to [facility] with hypertension and intractable vomiting - Vital Signs Vital signs: Temp Pulse Resp BP Pulse Ox 98.7 F 130 H 24 H 151/88 H 98 10/23/17 09:24 10/23/17 09:24 10/23/17 15:02 10/23/17 15:02 10/23/17 15:01 - Laboratory Result Diagrams: 10/23/17 11:23 10/23/17 11:23 Laboratory results interpreted by me: 10/23/17 10/23/17 10/23/17 09:45 11:23 11:23 RBC 3.35 L Hgb 9.4 L Hct 28.4 L RDW 16.2 H Chloride 109 H BUN 6 L Creatinine 0.40 L Alkaline Phosphatase 168 H Total Protein 9.8 H TSH Ur Leukocyte Esterase MODERATE H 10/23/17 11:23 RBC Hgb Hct RDW Chloride BUN Creatinine Alkaline Phosphatase Total Protein TSH 0.37 L Ur Leukocyte Esterase - EKG Interpretation by [facility] EKG shows normal: Sinus rhythm Rate: Tachycardia Rhythm: NSR Voltage: Consistant with LVH Critical Care Note - Critical Care Note Total time excluding time spent on procedures (mins): 60 Discharge - Discharge Clinical Impression: Intractable vomiting, Hypertension, Tachycardia, UTI (urinary tract infection) , Hypertensive urgency, Vomiting, Lupus (systemic lupus erythematosus), History of pulmonary embolism, Anticoagulated Condition: Fair Disposition: ADMITTED INPATIENT Admitting Provider: Hospitalist Unit Admitted: [facility]U Referrals: ZAIRA ELI MD [Primary Care Provider] - Follow up as needed
[2017-10-23 12:03] LABS: ALANINE AMINOTRANSFERASE 18 U/L (9-52); ALBUMIN 3.8 g/dL (3.5-5.0); ALKALINE PHOSPHATASE 168 U/L (38-126); ANION GAP 9 (5-19); ASPARTATE AMINO TRANSFERASE 27 U/L (14-36); BILIRUBIN,DIRECT 0.3 mg/dL (0.0-0.4); BILIRUBIN,TOTAL 0.3 mg/dL (0.2-1.3); BLOOD UREA NITROGEN 6 mg/dL (7-20); CALCIUM 9.3 mg/dL (8.4-10.2); CARBON DIOXIDE 22 mmol/L (22-30); CHLORIDE 109 mmol/L (98-107); GLUCOSE 94 mg/dL (75-110); POTASSIUM 4.1 mmol/L (3.6-5.0); SODIUM 139.9 mmol/L (137-145); TOTAL PROTEIN 9.8 g/dL (6.3-8.2)
[2017-10-23 12:33] LABS: FREE T4 (FREE THYROXINE) 1.53 ng/dL (0.78-2.19)
[2017-10-23 12:47] LABS: THYROID STIMULATING HORMONE 0.37 uIU/mL (0.47-4.68)
[2017-10-23] MEDS ORDERED: PROMETHAZINE HCL INJ 25 MG/1 ML VIAL IV ONE (13:47)
[2017-10-23] MEDS ORDERED: CEFTRIAXONE 1 GM/D5W RTU 1 GM/50 ML RTUPB IV ONE (13:53)
[2017-10-23] MEDS ORDERED: LEVETIRACETAM ORAL SOLN 500 MG/5 ML UDCUP PO ONE (14:25)
[2017-10-23] MEDS ORDERED: METOPROLOL TARTRATE 25 MG TABLET PO ONE (14:26)
[2017-10-23] MEDS ORDERED: PREDNISONE 5 MG TABLET PO ONE (14:27)
[2017-10-23] MEDS ORDERED: CLONIDINE HCL 0.2 MG TABLET PO ONE ×2 (14:27→23:15)
[2017-10-23] MEDS ORDERED: CEFTRIAXONE INJ 1000 MG VIAL ONE (14:34)
[2017-10-23] MEDS ORDERED: CLONIDINE 0.3 MG/24 HR PATCH.TDWK TD SCH (16:00)
[2017-10-23] MEDS ORDERED: LABETALOL HCL INJ 20 MG/4 ML DISP.SYRIN IV ONE (16:05)
[2017-10-23] MEDS ORDERED: NICARDIPINE HCL RTU, ISO-OS 20 MG/200 ML RTUINJ IV PRN (16:06)
[2017-10-23] MEDS ORDERED: NITROGLYCERIN 2% OINTMENT 1 GM PACKET TP ONE (16:06)
[2017-10-23] MEDS ORDERED: HYDRALAZINE HCL INJ/PF 20 MG/1 ML SDV IV ONE (16:15)
[2017-10-23] MEDS ORDERED: METOPROLOL TARTRATE PF/INJ 5 MG/5 ML SDV IV ONE (16:16)
--- NOTE | 2017-10-23 16:28 | PDOC H&P ---
History of Present Illness Admission Date/PCP: 10/23/17 15:28 ZAIRA ELI MD Patient complains of: severe headache neckpain nausea and vomiting History of Present Illness: JOSE DUMONT is a 22 year old female With a known history of seizure disorder lupus hypertension hypercoagulability syndrome; presents with a 3 day history of vomiting nausea headache Patient states that she did have a seizure 3 days ago and since then has had pain left side of the head and neck Patient wears a neck brace since August 10 after she underwent surgery for fractured neck Upon evaluation in the ED patient was diagnosed with accelerated hypertension with a blood pressure 170/150 She was treated with Hydralazine IV ,clonidine patch ,Nitropaste and IV Lopressor Patient's blood pressure came down to 160/70 She was subsequently admitted to [facility] for further evaluation and care Past Medical History Cardiac Medical History: Reports: DVT, Hypertension - ON MEDS, Pulmonary Embolism Denies: Coronary Artery Disease, Myocardial Infarction, Hyperlipidema Pulmonary Medical History: Reports: Asthma - CHILDHOOD ASTHMA, Pneumonia Denies: Bronchitis, Chronic Obstructive Pulmonary Disease (COPD), Tuberculosis Neurological Medical History: Reports: Migraine, Seizures - ON MEDS (MARCH 2017) Endocrine Medical History: Denies: Diabetes Mellitus Type 1, Diabetes Mellitus Type 2, Hyperthyroidism, Hypothyroidism GI Medical History: Reports: Gastroesophageal Reflux Disease Denies: Cirrhosis, Hepatitis Musculoskeltal Medical History: Reports: Arthritis - LUPUS Psychiatric Medical History: Denies: Depression Hematology: Reports: Anemia, Heparin Induced Thrombocytopenia - History of same Infectious Medical History: Reports: Clostridium Difficile, Methicillin- Resistant Staph Aureus Past Surgical History Past Surgical History: Reports: Other - PEG placement 2, Port-A-Cath Denies: Hysterectomy Social History Information Source: Patient Lives with: Family Smoking Status: Never Smoker Frequency of Alcohol Use: Occasional Hx Recreational Drug Use: No Drugs: None Hx Prescription Drug Abuse: No - Advance Directive Resuscitation Status: Full Code Surrogate healthcare decision maker:: father Family History Family History: Reviewed & Not Pertinent, Other - Lupus-mother Parental Family History Reviewed: Yes Children Family History Reviewed: Yes Sibling(s) Family History Reviewed.: Yes Medication/Allergy Home Medications: Alprazolam [Xanax] 1 mg PO Q12 10/23/17 Clonidine HCl [Catapres 0.3 mg Tablet] 0.3 mg PO Q12 10/23/17 Cyclobenzaprine HCl [Flexeril 10 mg Tablet] 10 mg PO QHS 10/23/17 Metoprolol Tartrate [Lopressor 50 mg Tablet] 25 mg PO Q12 10/23/17 Ondansetron [Zofran Odt] 8 mg PO QIDP PRN 10/23/17 Tizanidine HCl [Zanaflex] 6 mg PO Q8HP PRN 10/23/17 Zolpidem Tartrate [Ambien] 10 mg PO QHS 10/23/17 Metoprolol Tartrate [Lopressor 50 mg Tablet] 50 mg PO Q12 #60 tablet 10/27/17 Mupirocin [Bactroban 2% Ointment 22 gm] 1 applic TP BID #1 tube 10/27/17 Allergies/Adverse Reactions: shellfish derived Allergy (Severe, Verified 07/24/17 08:48) Anaphylaxis ketorolac tromethamine [From Toradol] Allergy (Intermediate, Verified 07/24/17 08:48) Hives morphine [Morphine] Allergy (Intermediate, Verified 07/24/17 08:48) Hives sulfamethoxazole [From Bactrim] Allergy (Unknown, Verified 07/24/17 08:48) Pruritis trimethoprim [From Bactrim] Allergy (Unknown, Verified 07/24/17 08:48) Pruritis belimumab [From Benlysta] Allergy (Verified 07/24/17 08:48) rash heparin Allergy (Verified 07/24/17 08:48) HIIT, No reaction with port flush Review of Systems Constitutional: PRESENT: headache(s). ABSENT: chills, fever(s), weight gain, weight loss Eyes: ABSENT: visual disturbances Ears: ABSENT: hearing changes Cardiovascular: ABSENT: chest pain, dyspnea on exertion, edema, orthropnea, palpitations Respiratory: ABSENT: cough, hemoptysis Gastrointestinal: ABSENT: abdominal pain, constipation, diarrhea, hematemesis, hematochezia, nausea, vomiting Genitourinary: ABSENT: dysuria, hematuria Musculoskeletal: PRESENT: other - Neck pain. ABSENT: joint swelling Integumentary: ABSENT: rash, wounds Neurological: PRESENT: other - Seizures headaches. ABSENT: abnormal gait, abnormal speech, confusion, dizziness, focal weakness, syncope Psychiatric: ABSENT: anxiety, depression, homidical ideation, suicidal ideation Endocrine: ABSENT: cold intolerance, heat intolerance, polydipsia, polyuria Hematologic/Lymphatic: ABSENT: easy bleeding, easy bruising Physical Exam Vital Signs: Temp Pulse Resp BP Pulse Ox 98.7 F 130 H 26 H 176/147 H 98 10/23/17 09:24 10/23/17 09:24 10/23/17 15:09 10/23/17 15:09 10/23/17 15:01 General appearance: PRESENT: no acute distress, well-developed, well-nourished Head exam: PRESENT: atraumatic, normocephalic Eye exam: PRESENT: conjunctiva pink, EOMI, PERRLA. ABSENT: scleral icterus Ear exam: PRESENT: normal external ear exam Mouth exam: PRESENT: moist, tongue midline Neck exam: PRESENT: other - neck immobilized in metal collar. ABSENT: carotid bruit, JVD, lymphadenopathy, thyromegaly Respiratory exam: PRESENT: clear to auscultation tavia. ABSENT: rales, rhonchi, wheezes Cardiovascular exam: PRESENT: RRR. ABSENT: diastolic murmur, rubs, systolic murmur Pulses: PRESENT: normal dorsalis pedis pul Vascular exam: PRESENT: normal capillary refill GI/Abdominal exam: PRESENT: normal bowel sounds, soft. ABSENT: distended, guarding, mass, organolmegaly, rebound, tenderness Rectal exam: PRESENT: deferred Extremities exam: PRESENT: full ROM. ABSENT: calf tenderness, clubbing, pedal edema Neurological exam: PRESENT: alert, awake, oriented to person, oriented to place , oriented to time, oriented to situation, CN II-XII grossly intact. ABSENT: motor sensory deficit Psychiatric exam: PRESENT: appropriate affect, normal mood. ABSENT: homicidal ideation, suicidal ideation Skin exam: PRESENT: dry, intact, warm. ABSENT: cyanosis, rash Results Laboratory Results: 10/23/17 10/23/17 10/23/17 11:23 11:23 11:23 WBC 8.4 Hgb 9.4 L Hct 28.4 L Sodium 139.9 Potassium 4.1 Chloride 109 H Carbon Dioxide 22 BUN 6 L Creatinine 0.40 L TSH 0.37 L Free T4 1.53 Assessment & Plan - Diagnosis (1) Accelerated hypertension Is this a current diagnosis for this admission?: Yes (2) Intractable vomiting Is this a current diagnosis for this admission?: Yes (3) Seizure disorder Is this a current diagnosis for this admission?: Yes (4) SLE (systemic lupus erythematosus) Qualifiers: Systemic lupus erythematosus type: unspecified Systemic lupus erythematosus organ involvement: unspecified Qualified Code(s): M32.9 - Systemic lupus erythematosus, unspecified Is this a current diagnosis for this admission?: Yes (5) Chronic anticoagulation Is this a current diagnosis for this admission?: Yes - Time Time Spent with patient: Patient's blood pressure is better controlled; We will treat her with intermittent doses of IV hydralazine; Lopressor scheduled, continue Nitropaste clonidine patient is chronically anticoagulated ; will continue meds Switch to Lovenox subcu until the vomiting has totally resolved and she is taking a full diet
[2017-10-23] MEDS ORDERED: CLONIDINE 0.3 MG/24 HR PATCH.TDWK TD ONE (16:30)
[2017-10-23] MEDS ORDERED: HYDRALAZINE HCL INJ/PF 20 MG/1 ML SDV IV PRN (16:49)
[2017-10-23] MEDS: HYDROMORPHONE HCL INJ/PF 2 MG/ML AMPULE IV PRN ×2 (17:27→20:58)
[2017-10-23] MEDS: NITROGLYCERIN 2% OINTMENT 1 GM PACKET TP SCH (17:31)
[2017-10-23] MEDS: METOPROLOL TARTRATE PF/INJ 5 MG/5 ML SDV IV SCH (18:35)
[2017-10-23] MEDS: LEVETIRACETAM ORAL SOLN 500 MG/5 ML UDCUP PO SCH (21:25)
--- NOTE | 2017-10-23 22:17 | EKG REPORT ---
SEVERITY:- ABNORMAL ECG - SINUS TACHYCARDIA PROBABLE LVH WITH SECONDARY REPOL ABNRM BORDERLINE PROLONGED QT INTERVAL : Confirmed by: Homer Edmonds 23-Oct-2017 22:15:59
[2017-10-23] MEDS: ONDANSETRON HCL INJ/PF 4 MG/2 ML SDV IV PRN (22:30)
[2017-10-23] MEDS ORDERED: ALPRAZOLAM 0.5 MG TABLET PO ONE (23:15)
[2017-10-23] MEDS ORDERED: ZOLPIDEM TARTRATE 5 MG TABLET PO ONE (23:15)
[2017-10-24] MEDS: METOPROLOL TARTRATE PF/INJ 5 MG/5 ML SDV IV SCH ×2 (00:13→05:24)
[2017-10-24] MEDS: NITROGLYCERIN 2% OINTMENT 1 GM PACKET TP SCH ×2 (00:31→05:24)
[2017-10-24] MEDS: HYDROMORPHONE HCL INJ/PF 2 MG/ML AMPULE IV PRN ×7 (00:47→22:52)
[2017-10-24] MEDS ORDERED: HYDRALAZINE HCL INJ/PF 20 MG/1 ML SDV IV PRN (05:32)
[2017-10-24] MEDS ORDERED: ONDANSETRON 4 MG TAB.RAPDIS PO PRN (05:32)
[2017-10-24] MEDS ORDERED: TIZANIDINE HCL 4 MG TABLET PO PRN (05:32)
[2017-10-24] MEDS ORDERED: ALPRAZOLAM 0.5 MG TABLET PO ONE (06:00)
[2017-10-24 06:10] LABS: HEMATOCRIT 25.8 % (36.0-47.0); HEMOGLOBIN 8.3 g/dL (12.0-15.5); MEAN CORPUSCULAR HEMOGLOBIN 27.5 pg (27.0-33.4); MEAN CORPUSCULAR HGB CONC 32.3 g/dL (32.0-36.0); MEAN CORPUSCULAR VOLUME 85 fl (80-97); PLATELET COUNT 311 10^3/uL (150-450); RED BLOOD COUNT 3.04 10^6/uL (3.72-5.28); RED CELL DISTRIBUTION WIDTH 15.8 % (11.5-14.0); WHITE BLOOD COUNT 6.5 10^3/uL (4.0-10.5)
[2017-10-24 06:26] LABS: ALANINE AMINOTRANSFERASE 20 U/L (9-52); ALBUMIN 3.5 g/dL (3.5-5.0); ALKALINE PHOSPHATASE 126 U/L (38-126); ANION GAP 9 (5-19); ASPARTATE AMINO TRANSFERASE 28 U/L (14-36); BILIRUBIN,DIRECT 0.2 mg/dL (0.0-0.4); BILIRUBIN,TOTAL 0.2 mg/dL (0.2-1.3); BLOOD UREA NITROGEN 4 mg/dL (7-20); CALCIUM 8.6 mg/dL (8.4-10.2); CARBON DIOXIDE 24 mmol/L (22-30); CHLORIDE 106 mmol/L (98-107); GLUCOSE 93 mg/dL (75-110); POTASSIUM 4.1 mmol/L (3.6-5.0); SODIUM 138.6 mmol/L (137-145); TOTAL PROTEIN 9.1 g/dL (6.3-8.2)
[2017-10-24] MEDS: PROMETHAZINE HCL INJ 25 MG/1 ML VIAL IV PRN ×2 (08:00→19:01)
[2017-10-24] MEDS ORDERED: METOPROLOL TARTRATE 50 MG TABLET PO SCH ×2 (10:00)
[2017-10-24] MEDS ORDERED: (PENDING PHARMACY ID) (Clonidine Hcl [Catapres 0.3 Mg Tablet] 0.3 MG) PO SCH (10:00)
--- NOTE | 2017-10-24 10:09 | RADIOLOGY REPORT (SQ) ---
EXAM DESCRIPTION: CHEST PA/LAT COMPLETED DATE/TIME: 10/24/2017 9:59 am REASON FOR STUDY: Cough, SOB COMPARISON: 05/05/2017 EXAM PARAMETERS: NUMBER OF VIEWS: two views TECHNIQUE: Digital Frontal and Lateral radiographic views of the chest acquired. RADIATION DOSE: NA LIMITATIONS: none FINDINGS: LUNGS AND PLEURA: Low lung volumes with dependent bibasilar subsegmental atelectasis. No definite consolidation, pleural, or pneumothorax. MEDIASTINUM AND HILAR STRUCTURES: No masses or contour abnormalities. HEART AND VASCULAR STRUCTURES: Heart normal size. No evidence for failure. BONES: No acute findings. HARDWARE: Stable position left-sided port. There is surgical hardware projecting over the patient's chest consistent with halo device. OTHER: No other significant finding. IMPRESSION: NO SIGNIFICANT RADIOGRAPHIC FINDING IN THE CHEST. TECHNICAL DOCUMENTATION: JOB ID: [id number] [employer]- All Rights Reserved
[2017-10-24] MEDS: ONDANSETRON HCL INJ/PF 4 MG/2 ML SDV IV PRN (10:37)
[2017-10-24] MEDS: LEVETIRACETAM ORAL SOLN 500 MG/5 ML UDCUP PO SCH ×2 (10:38→21:12)
[2017-10-24] MEDS: CLONIDINE HCL 0.2 MG TABLET PO SCH ×2 (10:38→21:14)
[2017-10-24] MEDS: 1/2 NORMAL SALINE 1,000 ML IV PRN ×2 (10:39→18:19)
[2017-10-24] MEDS: FONDAPARINUX SODIUM INJ 7.5 MG/0.6 ML DISP.SYRIN SUBCUT SCH (10:45)
[2017-10-24] MEDS ORDERED: METOPROLOL TARTRATE 50 MG TABLET PO ONE (11:00)
--- NOTE | 2017-10-24 11:15 | PDOC PROGRESS REPORT ---
Subjective Progress Note for:: 10/24/17 Subjective:: 22-year-old female with known history of Seizure disorder Lupus Hypertension Hypercoagulability. DVT Pulmonary embolism Childhood asthma Migraines GERD Arthritis Anemia Heparin-induced thrombocytopenia C. difficile infection in the past MRSA infection in the past Prior port placement PEG placement twice Presented to the hospital with a 3 day history of nausea vomiting and left- sided headache and neck pain. She has been wearing a neck brace since she underwent surgery for fractured cervical bone in August 2017. In the emergency room she was diagnosed with a hypertensive urgency her blood pressure was 170/150. She was treated with hydralazine intravenous, clonidine patch, IV Lopressor and Nitropaste and her blood pressure came down to 160/70. She was subsequently admitted to [facility] for further evaluation and care. Reason For Visit: ACCELERATED HYPERTENSION,SLE,SEIZURE DISORDER Physical Exam Vital Signs: Temp Pulse Resp BP Pulse Ox 100.0 F 127 H 24 H 117/68 97 10/24/17 04:01 10/24/17 04:01 10/24/17 04:01 10/24/17 04:01 10/24/17 04:01 Intake & Output 10/22/17 10/23/17 10/24/17 06:59 06:59 06:59 Intake Total 236 Output Total 401 Balance -165 Weight 55.7 kg Additional comments: Young -[place] female lying in bed She has a metal neck brace. Lungs: Clear to auscultation bilaterally normal respiratory effort Cardiac: S1-S2 regular, tachycardic, no peripheral edema no cyanosis no calf tenderness Napoleon: Soft, no focal tenderness normal bowel sounds Results Laboratory Results: 10/23/17 10/23/17 10/24/17 16:58 22:30 04:10 Troponin I < 0.012 < 0.012 < 0.012 Assessment & Plan - Diagnosis (1) Hypertensive urgency Is this a current diagnosis for this admission?: Yes (2) Seizure disorder Is this a current diagnosis for this admission?: Yes (3) Lupus (systemic lupus erythematosus) Qualifiers: (5) Headache Qualifiers: Headache type: unspecified Headache chronicity pattern: chronic headache Intractability: not intractable Qualified Code(s): R51 - Headache (6) Nausea & vomiting Qualifiers: Vomiting type: unspecified Vomiting Intractability: non-intractable Qualified Code(s): R11.2 - Nausea with vomiting, unspecified (8) Constipation Qualifiers: Constipation type: unspecified constipation type Qualified Code(s): K59.00 - Constipation, unspecified (9) GERD (gastroesophageal reflux disease) Qualifiers: Esophagitis presence: without esophagitis Qualified Code(s): K21.9 - Gastro -esophageal reflux disease without esophagitis - Time Time Spent with patient: 25-34 minutes - Plan Summary Plan Summary: She has been started on IV fluids Dilaudid as needed for pain, Phenergan for nausea Clear liquid diet Her oral outpatient blood pressure medications have been restarted. Continue to monitor closely Chest Xray did not show consolidation pleural effusion or pneumothorax.
[2017-10-24] MEDS ORDERED: METOPROLOL TARTRATE PF/INJ 5 MG/5 ML SDV IV SCH ×2 (12:00)
[2017-10-24] MEDS: ALPRAZOLAM 0.5 MG TABLET PO SCH (21:13)
[2017-10-24] MEDS: METOPROLOL TARTRATE 50 MG TABLET PO SCH (21:13)
[2017-10-24] MEDS: ZOLPIDEM TARTRATE 5 MG TABLET PO SCH (21:13)
[2017-10-24] MEDS: CYCLOBENZAPRINE HCL 10 MG TABLET PO SCH (21:14)
[2017-10-25] MEDS: 1/2 NORMAL SALINE 1,000 ML IV PRN ×3 (02:19→19:41)
[2017-10-25] MEDS: HYDROMORPHONE HCL INJ/PF 2 MG/ML AMPULE IV PRN ×5 (02:46→23:21)
[2017-10-25] MEDS: PROMETHAZINE HCL INJ 25 MG/1 ML VIAL IV PRN ×3 (04:57→15:10)
[2017-10-25] MEDS: ALPRAZOLAM 0.5 MG TABLET PO SCH ×2 (09:53→22:45)
[2017-10-25] MEDS: METOPROLOL TARTRATE 50 MG TABLET PO SCH ×2 (09:53→22:51)
[2017-10-25] MEDS: FONDAPARINUX SODIUM INJ 7.5 MG/0.6 ML DISP.SYRIN SUBCUT SCH (09:54)
[2017-10-25] MEDS: LEVETIRACETAM ORAL SOLN 500 MG/5 ML UDCUP PO SCH ×2 (09:54→22:49)
[2017-10-25] MEDS: CLONIDINE HCL 0.2 MG TABLET PO SCH ×2 (09:58→22:56)
--- NOTE | 2017-10-25 11:16 | Physician Advisory Note ---
Physician Advisor ProgressNote .: Pursuant to the plan for Adriano Streeter, I have reviewed the medical record for this patient. 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 Please consider documenting, if you agree: 1. "[Possible] Hypertensive emergency, evidenced by N/V/MARIA" - or - "N/V/MARIA, possibly due to " [+ "Hypertensive urgency" (no s/s)] 2. Medical necessity: -"Pt still requiring IV metoprolol for BP control through 10/24", -"Pt continues persistently tachycardic, despite increased beta avery dosing" , -"requiring prn IV Dilaudid & Phenergan frequently", -"new onset hypoxemia of unclear etiology", -"relative hypotension requiring ongoing acute adjustments of BP meds for safety ", -"I AM CONCERNED about " (temp elevations? O2 sats? BP drops? amount of BP meds adjustments still needing with frequent adjustments? ongoing sx? inability to tolerate adequate po still? ...) Status: appropriately came in as Obs initially, given potential for quick response to tx & quick d/c. However, she required first po meds, then escalating parenteral meds the first day to achieve adequate control of BP, with scheduled IV metoprolol added. Then she needed to be transitioned to po BP meds & to be monitored for response safety & po toleration. She needed NTPaste held on 10/24 due to BP 117/68, then needed NOW dose of Lopressor a few hours later on 10/24 AM. Needed prn IV Dilaudid 5x on 10/24, still needing it. Needed prn IV Phenergan 3x in last 24 hours. Needed scheduled clonidine (lower than her home dose) held on 10/25 AM due to hypotension of 92/55. Not yet stabilized for safe d/c. Appropriate for change to Inpatient status, with clear documentation of clinical reasons such as above, so data processing auditor doesn't just check BPs & say "well, BPs not so high since 10/24 AM, so she should have been d/c'd home by now". Thanks! CK
--- NOTE | 2017-10-25 14:04 | RADIOLOGY REPORT (SQ) ---
EXAM DESCRIPTION: VENOUS UNILATERAL LOWER COMPLETED DATE/TIME: 10/25/2017 12:57 pm REASON FOR STUDY: pain R leg r/o DVT COMPARISON: 09/17/2011 venous Doppler TECHNIQUE: Dynamic and static majano scale and color images acquired of the right leg venous system. S elected spectral images acquired with additional compression and augmentation maneuvers. The contrala teral common femoral vein and saphenofemoral junction were also imaged. Images stored on PACS. LIMITATIONS: None. FINDINGS: RIGHT COMMON FEMORAL: Normal phasicity, compression and augmentation. No visualized echogenic material on g ray scale. No defects on color images. FEMORAL: Normal compression and augmentation. No visualized echogenic material on majano scale. No defe cts on color images. POPLITEAL: Normal compression, augmentation. No visualized echogenic material on majano scale. No defec ts on color images. CALF VESSELS: Normal compression, augmentation. No visualized echogenic material on majano scale. No de fects on color images. GSV and SSV: Normal compression, augmentation. No visualized echogenic material on majano scale. No def ects on color images. ANY DEEP VENOUS INSUFFICIENCY: No reflux on Valsalva. ANY EVIDENCE OF POPLITEAL CYST: No. OTHER: No other significant finding. LEFT COMMON FEMORAL VEIN AND SAPHENOFEMORAL JUNCTION: Normal phasicity, compression and augmentation. No visualized echogenic material on majano scale. No de fects on color images. IMPRESSION: NO EVIDENCE OF DVT OR SVT IN THE LEFT LEG. TECHNICAL DOCUMENTATION: JOB ID: [id number] [employer]- All Rights Reserved
--- NOTE | 2017-10-25 16:04 | PDOC PROGRESS REPORT ---
Subjective Progress Note for:: 10/25/17 Subjective:: 22-year-old female with history of Seizure disorder Lupus Hypertension Hypercoagulability. DVT Pulmonary embolism Childhood asthma Migraines GERD Arthritis Anemia Heparin-induced thrombocytopenia C. difficile infection in the past MRSA infection in the past Prior port placement PEG placement twice She presented to the hospital with a 3 day history of nausea vomiting and left- sided headache and neck pain. She has been wearing a neck brace since she underwent surgery for fractured cervical bone in August 2017. In the emergency room she was diagnosed with a hypertensive urgency her blood pressure was 170/150. She was treated with hydralazine intravenous, clonidine patch, IV Lopressor and Nitropaste and her blood pressure came down to 160/70. She was subsequently admitted to [facility] for further evaluation and care. Is doing better today. No further vomiting. Nausea has improved. She is requesting a diet upgrade. Reason For Visit: HYPERTENSION URGENCY,INTRACTABLE VOMITING Physical Exam Vital Signs: Temp Pulse Resp BP Pulse Ox 98.5 F 118 H 16 117/79 98 10/25/17 11:17 10/25/17 11:17 10/25/17 11:17 10/25/17 11:17 10/25/17 11:17 Intake & Output 10/24/17 10/25/17 10/26/17 06:59 06:59 06:59 Intake Total 494 3590 Output Total 401 Balance 93 3590 Weight 53.7 kg 53 kg Additional comments: Young -Omani female lying in bed She has a metal neck brace. Lungs: Clear to auscultation bilaterally normal respiratory effort Cardiac: S1-S2 regular, tachycardic, no peripheral edema no cyanosis no calf tenderness Abd: Soft, no focal tenderness normal bowel sounds Results Laboratory Results: 10/24/17 05:20 10/24/17 05:20 10/23/17 10/23/17 10/24/17 16:58 22:30 04:10 Troponin I < 0.012 < 0.012 < 0.012 Impressions: Chest X-Ray 10/24/17 00:00 IMPRESSION: NO SIGNIFICANT RADIOGRAPHIC FINDING IN THE CHEST. Venous Doppler Study 10/25/17 00:00 IMPRESSION: NO EVIDENCE OF DVT OR SVT IN THE LEFT LEG. Assessment & Plan - Diagnosis (1) Hypertensive urgency Is this a current diagnosis for this admission?: Yes (2) Seizure disorder Is this a current diagnosis for this admission?: Yes (3) Lupus (systemic lupus erythematosus) Qualifiers: (5) Headache Qualifiers: Headache type: unspecified Headache chronicity pattern: chronic headache Intractability: not intractable Qualified Code(s): R51 - Headache (6) Nausea & vomiting Qualifiers: Vomiting type: unspecified Vomiting Intractability: non-intractable Qualified Code(s): R11.2 - Nausea with vomiting, unspecified (7) Antiphospholipid syndrome Is this a current diagnosis for this admission?: Yes Plan: On Arixtra (8) Constipation Qualifiers: Constipation type: unspecified constipation type Qualified Code(s): K59.00 - Constipation, unspecified (9) GERD (gastroesophageal reflux disease) Qualifiers: Esophagitis presence: esophagitis presence not specified Qualified Code(s) : K21.9 - Gastro-esophageal reflux disease without esophagitis Is this a current diagnosis for this admission?: Yes (10) HIT (heparin-induced thrombocytopenia) Is this a current diagnosis for this admission?: No (11) History of MRSA infection Is this a current diagnosis for this admission?: No - Time Time Spent with patient: 25-34 minutes - Plan Summary Plan Summary: Continue gentle IV fluids. Diet can be advanced to a soft GI diet. Dilaudid as needed for pain, Phenergan for nausea Continue metoprolol. Clonidine dose has been cut back to prevent hypotension. She had complained of some right lower extremity pain. Venous Dopplers were negative for DVT. Chest Xray did not show consolidation pleural effusion or pneumothorax.
[2017-10-25] MEDS: CYCLOBENZAPRINE HCL 10 MG TABLET PO SCH (22:46)
[2017-10-25] MEDS: ZOLPIDEM TARTRATE 5 MG TABLET PO SCH (22:50)
[2017-10-26] MEDS: HYDROMORPHONE HCL INJ/PF 2 MG/ML AMPULE IV PRN ×5 (03:32→23:02)
[2017-10-26] MEDS: PROMETHAZINE HCL INJ 25 MG/1 ML VIAL IV PRN ×5 (03:33→23:06)
[2017-10-26] MEDS: LEVETIRACETAM ORAL SOLN 500 MG/5 ML UDCUP PO SCH ×2 (11:01→21:09)
[2017-10-26] MEDS: FONDAPARINUX SODIUM INJ 7.5 MG/0.6 ML DISP.SYRIN SUBCUT SCH (11:01)
[2017-10-26] MEDS: METOPROLOL TARTRATE 50 MG TABLET PO SCH ×2 (11:02→21:08)
[2017-10-26] MEDS: CLONIDINE HCL 0.2 MG TABLET PO SCH ×2 (11:02→21:07)
[2017-10-26] MEDS: ALPRAZOLAM 0.5 MG TABLET PO SCH ×2 (11:02→21:06)
[2017-10-26] MEDS: 1/2 NORMAL SALINE 1,000 ML IV PRN ×2 (13:00→21:09)
--- NOTE | 2017-10-26 20:05 | PDOC PROGRESS REPORT ---
Subjective Progress Note for:: 10/26/17 Subjective:: Pt states that she is having pain and would like to for her pain medication to be increased. Nursing states that pt has drainage for scalp. Reason For Visit: ACCELERATED HYPERTENSION, SLE, SEIZURE DISORDER Physical Exam Vital Signs: Temp Pulse Resp BP Pulse Ox 99.0 F 108 H 16 117/84 99 10/26/17 15:30 10/26/17 15:30 10/26/17 15:30 10/26/17 15:30 10/26/17 15:30 Intake & Output 10/25/17 10/26/17 10/27/17 06:59 06:59 06:59 Intake Total 7477 2385 Balance 7477 2385 General appearance: PRESENT: no acute distress, well-developed, well-nourished, other - Halo in place Head exam: PRESENT: other - halo in place Eye exam: PRESENT: conjunctiva pink, EOMI. ABSENT: scleral icterus Ear exam: PRESENT: normal external ear exam Mouth exam: PRESENT: moist, tongue midline Neck exam: ABSENT: carotid bruit, JVD, lymphadenopathy, thyromegaly Respiratory exam: PRESENT: clear to auscultation tavia. ABSENT: rales, rhonchi, wheezes Cardiovascular exam: PRESENT: RRR. ABSENT: diastolic murmur, rubs, systolic murmur Pulses: PRESENT: normal dorsalis pedis pul Vascular exam: PRESENT: normal capillary refill GI/Abdominal exam: PRESENT: normal bowel sounds, soft. ABSENT: distended, guarding, mass, organolmegaly, rebound, tenderness Rectal exam: PRESENT: deferred Extremities exam: PRESENT: full ROM. ABSENT: calf tenderness, clubbing, pedal edema Neurological exam: PRESENT: alert, awake, oriented to person, oriented to place , oriented to time, oriented to situation. ABSENT: motor sensory deficit Psychiatric exam: PRESENT: appropriate affect, normal mood. ABSENT: homicidal ideation, suicidal ideation Skin exam: PRESENT: dry, intact, warm, other - + scalp drainage.. ABSENT: cyanosis, rash Results Impressions: Chest X-Ray 10/24/17 00:00 IMPRESSION: NO SIGNIFICANT RADIOGRAPHIC FINDING IN THE CHEST. Venous Doppler Study 10/25/17 00:00 IMPRESSION: NO EVIDENCE OF DVT OR SVT IN THE LEFT LEG. Assessment & Plan - Diagnosis (1) Hypertensive urgency Is this a current diagnosis for this admission?: Yes Plan: Will continue current medications (2) SLE (systemic lupus erythematosus) Qualifiers: Systemic lupus erythematosus type: unspecified Systemic lupus erythematosus organ involvement: unspecified Qualified Code(s): M32.9 - Systemic lupus erythematosus, unspecified Is this a current diagnosis for this admission?: Yes Plan: Supportive Care (3) Seizure disorder Is this a current diagnosis for this admission?: Yes (4) Nausea & vomiting Qualifiers: Vomiting type: unspecified Vomiting Intractability: non-intractable Qualified Code(s): R11.2 - Nausea with vomiting, unspecified Is this a current diagnosis for this admission?: Yes Plan: Will continue current nausea medication (5) GERD (gastroesophageal reflux disease) Qualifiers: Esophagitis presence: esophagitis presence not specified Qualified Code(s) : K21.9 - Gastro-esophageal reflux disease without esophagitis Is this a current diagnosis for this admission?: Yes (6) HIT (heparin-induced thrombocytopenia) Is this a current diagnosis for this admission?: No Plan: No new issues (7) Scalp abrasion Is this a current diagnosis for this admission?: Yes Plan: Wound culture. Will place on Bactroban. (8) History of MRSA infection Is this a current diagnosis for this admission?: No Plan: No new issues. - Time Time Spent with patient: 15-24 minutes
[2017-10-26] MEDS: ZOLPIDEM TARTRATE 5 MG TABLET PO SCH (21:08)
[2017-10-26] MEDS: CYCLOBENZAPRINE HCL 10 MG TABLET PO SCH (21:09)
[2017-10-27] MEDS: HYDROMORPHONE HCL INJ/PF 2 MG/ML AMPULE IV PRN ×4 (03:29→17:50)
[2017-10-27] MEDS: PROMETHAZINE HCL INJ 25 MG/1 ML VIAL IV PRN ×4 (03:30→17:49)
[2017-10-27 07:02] LABS: ABSOLUTE EOSINOPHILS # (AUTO) 0.2 10^3/uL (0.0-0.6); ABSOLUTE LYMPHOCYTES (AUTO) 1.2 10^3/uL (0.5-4.7); ABSOLUTE MONOCYTES (AUTO) 0.7 10^3/uL (0.1-1.4); ABSOLUTE NEUT (AUTO) 2.3 10^3/uL (1.7-8.2); BASOPHILS % (AUTO) 0.8 % (0-2); EOSINOPHILS % (AUTO) 3.5 % (0-6); HEMATOCRIT 28.2 % (36.0-47.0); HEMOGLOBIN 9.1 g/dL (12.0-15.5); LYMPHOCYTES % (AUTO) 26.7 % (13-45); MEAN CORPUSCULAR HEMOGLOBIN 27.3 pg (27.0-33.4); MEAN CORPUSCULAR HGB CONC 32.3 g/dL (32.0-36.0); MEAN CORPUSCULAR VOLUME 85 fl (80-97); MONOCYTES % (AUTO) 16.3 % (3-13); PLATELET COUNT 302 10^3/uL (150-450); RED BLOOD COUNT 3.33 10^6/uL (3.72-5.28); RED CELL DISTRIBUTION WIDTH 16.2 % (11.5-14.0); SEGMENTED NEUTROPHILS % (AUTO) 52.7 % (42-78); TOTAL CELLS COUNTED % (AUTO) 100 %; WHITE BLOOD COUNT 4.4 10^3/uL (4.0-10.5)
[2017-10-27 07:27] LABS: ALANINE AMINOTRANSFERASE 24 U/L (9-52); ALBUMIN 3.7 g/dL (3.5-5.0); ALKALINE PHOSPHATASE 122 U/L (38-126); ANION GAP 12 (5-19); ASPARTATE AMINO TRANSFERASE 21 U/L (14-36); BILIRUBIN,DIRECT 0.1 mg/dL (0.0-0.4); BILIRUBIN,TOTAL 0.1 mg/dL (0.2-1.3); BLOOD UREA NITROGEN 3 mg/dL (7-20); CALCIUM 8.7 mg/dL (8.4-10.2); CARBON DIOXIDE 22 mmol/L (22-30); CHLORIDE 105 mmol/L (98-107); GLUCOSE 96 mg/dL (75-110); POTASSIUM 4.5 mmol/L (3.6-5.0); SODIUM 139.3 mmol/L (137-145); TOTAL PROTEIN 9.6 g/dL (6.3-8.2)
[2017-10-27] MEDS: ALPRAZOLAM 0.5 MG TABLET PO SCH (09:51)
[2017-10-27] MEDS: FONDAPARINUX SODIUM INJ 7.5 MG/0.6 ML DISP.SYRIN SUBCUT SCH (09:51)
[2017-10-27] MEDS: METOPROLOL TARTRATE 50 MG TABLET PO SCH (09:52)
[2017-10-27] MEDS: MUPIROCIN 2% OINTMENT 22 GM TP SCH ×2 (09:52→17:57)
[2017-10-27] MEDS: LEVETIRACETAM ORAL SOLN 500 MG/5 ML UDCUP PO SCH (09:52)
[2017-10-27] MEDS: CLONIDINE HCL 0.2 MG TABLET PO SCH (09:52)
[2017-10-27] MEDS: ONDANSETRON HCL INJ/PF 4 MG/2 ML SDV IV PRN (10:29)
[2017-10-27] MEDS: 1/2 NORMAL SALINE 1,000 ML IV PRN (14:30)
--- NOTE | 2017-10-27 15:54 | PDOC DISCHARGE SUMMARY ---
General - Admit/Disc Date/PCP Admission Date/Primary Care Provider: 10/25/17 11:56 ZAIRA ELI MD Discharge Date: 10/27/17 - Discharge Diagnosis (1) Hypertensive urgency Is this a current diagnosis for this admission?: Yes Summary: Resumed home medications (2) SLE (systemic lupus erythematosus) Is this a current diagnosis for this admission?: Yes Summary: Supportive care. (3) Seizure disorder Is this a current diagnosis for this admission?: Yes Summary: Will continue home medication. (4) Nausea & vomiting Is this a current diagnosis for this admission?: Yes Summary: Will write for nausea medication. (5) HIT (heparin-induced thrombocytopenia) Is this a current diagnosis for this admission?: No (6) Scalp abrasion Is this a current diagnosis for this admission?: Yes Summary: Will write for Bactroban. (7) History of MRSA infection Is this a current diagnosis for this admission?: No Summary: Supportive care. - Additional Information Resuscitation Status: Full Code Home Medications: Alprazolam [Xanax] 1 mg PO Q12 10/23/17 Clonidine HCl [Catapres 0.3 mg Tablet] 0.3 mg PO Q12 10/23/17 Cyclobenzaprine HCl [Flexeril 10 mg Tablet] 10 mg PO QHS 10/23/17 Metoprolol Tartrate [Lopressor 50 mg Tablet] 25 mg PO Q12 10/23/17 Ondansetron [Zofran Odt] 8 mg PO QIDP PRN 10/23/17 Tizanidine HCl [Zanaflex] 6 mg PO Q8HP PRN 10/23/17 Zolpidem Tartrate [Ambien] 10 mg PO QHS 10/23/17 History of Present Illness Patient complains of: Nausea and severe headache History of Present Illness: JOSE DUMONT is a 22 year old female presents with severe headache, neck pain and nausea vomiting. Patient was admitted to the hospital where she was placed on pain medication which she requested every 2 hours. Patient's nausea resolved with nausea medication. Patient has been tolerating a regular diet with no further issues. Patient was noted to have drainage coming from 1 of her halo penetrating sites. Patient was written for Bactroban ointment. Patient reported having diarrhea C. difficile study was performed which was negative. Hospital Course Hospital Course: JOSE DUMONT is a 22 year old female presents with severe headache, neck pain and nausea vomiting. Patient was admitted to the hospital where she was placed on pain medication which she requested every 2 hours. Patient's nausea resolved with nausea medication. Patient has been tolerating a regular diet with no further issues. Patient was noted to have drainage coming from 1 of her halo penetrating sites. Patient was written for Bactroban ointment. Patient reported having diarrhea C. difficile study was performed which was negative. Physical Exam Vital Signs: Temp Pulse Resp BP Pulse Ox 99.1 F 120 H 16 135/98 H 99 10/27/17 07:53 10/27/17 07:53 10/27/17 07:53 10/27/17 07:53 10/27/17 07:53 Intake & Output 10/26/17 10/27/17 10/28/17 06:59 06:59 06:59 Intake Total 7477 4806 Balance 7477 4806 Weight 57.3 kg General appearance: PRESENT: no acute distress, well-developed, well-nourished Head exam: PRESENT: other - Halo in place Eye exam: PRESENT: conjunctiva pink, EOMI. ABSENT: scleral icterus Ear exam: PRESENT: normal external ear exam Mouth exam: PRESENT: moist, tongue midline Neck exam: ABSENT: carotid bruit, JVD, lymphadenopathy, thyromegaly Respiratory exam: PRESENT: clear to auscultation tavia. ABSENT: rales, rhonchi, wheezes Cardiovascular exam: PRESENT: RRR. ABSENT: diastolic murmur, rubs, systolic murmur Pulses: PRESENT: normal dorsalis pedis pul Vascular exam: PRESENT: normal capillary refill GI/Abdominal exam: PRESENT: normal bowel sounds, soft. ABSENT: distended, guarding, mass, organolmegaly, rebound, tenderness Rectal exam: PRESENT: deferred Extremities exam: PRESENT: full ROM. ABSENT: calf tenderness, clubbing, pedal edema Neurological exam: PRESENT: alert, awake, oriented to person, oriented to place , oriented to time, oriented to situation, CN II-XII grossly intact. ABSENT: motor sensory deficit Psychiatric exam: PRESENT: appropriate affect, normal mood. ABSENT: homicidal ideation, suicidal ideation Skin exam: PRESENT: dry, intact, warm, other - Patient with drainage from one side associated with halo in place. No purulent drainage noted serosanguineous fluid. ABSENT: cyanosis, rash Results Laboratory Results: 10/27/17 06:01 10/27/17 06:01 10/27/17 10/27/17 06:01 06:01 WBC 4.4 RBC 3.33 L Hgb 9.1 L Hct 28.2 L MCV 85 MCH 27.3 MCHC 32.3 RDW 16.2 H Plt Count 302 Seg Neutrophils % 52.7 Lymphocytes % 26.7 Monocytes % 16.3 H Eosinophils % 3.5 Basophils % 0.8 Absolute Neutrophils 2.3 Absolute Lymphocytes 1.2 Absolute Monocytes 0.7 Absolute Eosinophils 0.2 Absolute Basophils 0.0 Sodium 139.3 Potassium 4.5 Chloride 105 Carbon Dioxide 22 Anion Gap 12 BUN 3 L Creatinine 0.45 L Est GFR ( Amer) > 60 Est GFR (Non-Af Amer) > 60 Glucose 96 Calcium 8.7 Total Bilirubin 0.1 L AST 21 ALT 24 Alkaline Phosphatase 122 Total Protein 9.6 H Albumin 3.7 Impressions: Chest X-Ray 10/24/17 00:00 IMPRESSION: NO SIGNIFICANT RADIOGRAPHIC FINDING IN THE CHEST. Venous Doppler Study 10/25/17 00:00 IMPRESSION: NO EVIDENCE OF DVT OR SVT IN THE LEFT LEG. Plan Time Spent: Greater than 30 Minutes
[2017-10-27 18:51] VITALS: BP 133/89
== END 2017-10-27 20:00 | disposition home or self-care (01) | DRG 305 ==
LOC: ER 09:19 → INTOOBSV 15:28 → EH 15:28 → 3S 20:37 → OBSVTOIN 10-25 11:56
PROVIDERS: ADMIT Internal Medicine; ATTEND Internal Medicine
DX: I16.0 Hypertensive urgency (principal); M32.9 Systemic lupus erythematosus, unspecified; G40.909 Epilepsy, unspecified, not intractable, without status epilepticus; K59.00 Constipation, unspecified; K21.9 Gastro-esophageal reflux disease without esophagitis; R11.2 Nausea with vomiting, unspecified; B34.9 Viral infection, unspecified; S12.9XXD Fracture of neck, unspecified, subsequent encounter; D75.82 Heparin induced thrombocytopenia (HIT); W19.XXXD Unspecified fall, subsequent encounter; Z86.718 Personal history of other venous thrombosis and embolism; Z86.711 Personal history of pulmonary embolism; Z91.013 Allergy to seafood; Z88.6 Allergy status to analgesic agent; Z88.2 Allergy status to sulfonamides; Z88.8 Allergy status to other drugs, medicaments and biological substances; Z79.01 Long term (current) use of anticoagulants; Z86.14 Personal history of Methicillin resistant Staphylococcus aureus infection; Z97.8 Presence of other specified devices; Z79.899 Other long term (current) drug therapy
CPT/HCPCS: 36415; 36591; 71046; 80053; 81001; 81025; 83605; 84439; 84443; 84484; 85025; 85027; 87040; 87070; 87077; 87086; 87088; 87186; 87205; 87493; 93005; 93010; 93971; 96361; 96365; 96367; 96375; 99291; J0360; J0696; J1170; J1652; J2405; J2550; J3490; J7030; J7120

== ENCOUNTER 2017-11-19 06:02 | Emergency (ER) | payer MEDICARE, MEDICAID ==
[2017-11-19] MEDS ORDERED: METOPROLOL TARTRATE 25 MG TABLET PO ONE (06:34)
[2017-11-19] MEDS ORDERED: CLONIDINE HCL 0.2 MG TABLET PO ONE (06:34)
[2017-11-19] MEDS ORDERED: PROMETHAZINE HCL INJ 25 MG/1 ML VIAL IM ONE (06:35)
--- NOTE | 2017-11-19 06:39 | ER Document Report ---
ED General - General Mode of Arrival: Ambulatory Information source: Patient TRAVEL OUTSIDE OF THE [place] IN LAST 30 DAYS: No <CHARLEEN JEFFRIES - Last Filed: 11/19/17 15:16> <TYLER MERCADO - Last Filed: 11/19/17 15:32> - General Chief Complaint: Nausea/Vomiting Stated Complaint: NAUSEA, VOMITING Time Seen by Provider: 11/19/17 06:19 Notes: Patient is a 22 year old female with a history of Lupus, epilepsy, anti- phospholipid syndrome, blood clots, hypertension and a recent broken neck presents to the emergency department complaining of a possible lupus flare with symptoms of nausea, vomiting, urine frequency, burning, suprapubic pain and pain in chest, legs, and back. Patient states these symptoms were onset 3 days ago and expresses concern due to being unable to keep her medications down. Patient states she is on Keppra 500 mg (x2 daily), Prednisone, Metoprolol 25mg ( x2 daily) and Clonidine .3 mg (x2 daily). Patient states when she is in the hospital she is allowed Dilaudid for her pain. (CHARLEEN JEFFRIES) - Related Data Allergies/Adverse Reactions: shellfish derived Allergy (Severe, Verified 07/24/17 08:48) Anaphylaxis ketorolac tromethamine [From Toradol] Allergy (Intermediate, Verified 07/24/17 08:48) Hives morphine [Morphine] Allergy (Intermediate, Verified 07/24/17 08:48) Hives sulfamethoxazole [From Bactrim] Allergy (Unknown, Verified 07/24/17 08:48) Pruritis trimethoprim [From Bactrim] Allergy (Unknown, Verified 07/24/17 08:48) Pruritis belimumab [From Benlysta] Allergy (Verified 07/24/17 08:48) rash heparin Allergy (Verified 07/24/17 08:48) HIIT, No reaction with port flush Past Medical History - General Information source: Patient - Social History Smoking Status: Never Smoker Chew tobacco use (# tins/day): No Frequency of alcohol use: None Drug Abuse: None Family History: Other - Lupus-mother Patient has suicidal ideation: No Patient has homicidal ideation: No - Past Medical History Cardiac Medical History: Reports: Hx DVT, Hx Hypertension - ON MEDS, Hx Pulmonary Embolism Pulmonary Medical History: Reports: Hx Asthma - CHILDHOOD ASTHMA, Hx Pneumonia Neurological Medical History: Reports: Hx Migraine, Hx Seizures - ON MEDS (MARCH 2017). Denies: Hx Cerebrovascular Accident GI Medical History: Reports: Hx Gastritis, Hx Gastroesophageal Reflux Disease, Hx Ulcer, Hx Endoscopy Musculoskeltal Medical History: Reports Hx Arthritis - LUPUS Skin Medical History: Reports Hx Cellulitis Psychiatric Medical History: Reports: Hx Anxiety Infectious Medical History: Reports: Hx C-Diff, Hx MRSA. Denies: Hx Hepatitis Past Surgical History: Reports: Hx Abdominal Surgery - PEG tube, Other - PEG placement 2, Port-A-Cath - Immunizations Immunizations up to date: Yes Hx Diphtheria, Pertussis, Tetanus Vaccination: Yes Hx Pneumococcal Vaccination: 10/04/14 <CHARLEEN JEFFRIES - Last Filed: 11/19/17 15:16> Review of Systems - Review of Systems Constitutional: No symptoms reported EENT: No symptoms reported Cardiovascular: See HPI, Chest pain Respiratory: No symptoms reported Gastrointestinal: See HPI, Abdominal pain, Nausea, Vomiting Genitourinary: No symptoms reported Female Genitourinary: No symptoms reported Musculoskeletal: See HPI Skin: No symptoms reported Hematologic/Lymphatic: No symptoms reported Neurological/Psychological: No symptoms reported -: Yes All other systems reviewed and negative <CHARLEEN JEFFRIES - Last Filed: 11/19/17 15:16> Physical Exam <CHARLEEN JEFFRIES - Last Filed: 11/19/17 15:16> <TYLER MERCADO - Last Filed: 11/19/17 15:32> - Vital signs Vitals: Temp Pulse Resp BP Pulse Ox 99 F 143 H 18 127/98 H 98 11/19/17 06:11 11/19/17 06:11 11/19/17 06:11 11/19/17 06:11 11/19/17 06:11 - Notes Notes: GENERAL: Alert, interacts well. No acute distress. HEAD: Normocephalic, atraumatic. Erythema to the cheeks and forehead. EYES: Pupils equal, round, and reactive to light. Extraocular movements intact. ENT: Oral mucosa moist, tongue midline. NECK: In a hard cervical collar. LUNGS: Clear to auscultation bilaterally, no wheezes, rales, or rhonchi. No respiratory distress. HEART: Tachycardic. No murmurs, gallops, or rubs. ABDOMEN: Soft, suprapubic tenderness to palpation. Non-distended. Bowel sounds present in all 4 quadrants. EXTREMITIES: Moves all 4 extremities spontaneously. No edema, radial and dorsalis pedis pulses 2/4 bilaterally. No cyanosis. NEUROLOGICAL: Alert and oriented x3. Normal speech. PSYCH: Normal affect, normal mood. SKIN: Warm, dry, normal turgor. PELVIC: Clumpy white discharge, swollen labia, erythema and skin breakdown on left groin, consistent with vulvovaginal candidasis. (CHARLEEN JEFFRIES) Course - Laboratory Result Diagrams: 11/19/17 06:52 11/19/17 06:52 <CHARLEEN JEFFRIES - Last Filed: 11/19/17 15:16> - Laboratory Result Diagrams: 11/19/17 06:52 11/19/17 06:52 <TYLER MERCADO - Last Filed: 11/19/17 15:32> - Re-evaluation Re-evalutation: 11/19/17 10:39 CBC shows chronic anemia at 8.8 without leukocytosis or left shift, platelets are normal, CMP grossly unremarkable, slightly elevated alkaline phosphatase at 156 consistent with surgery recently manipulating her cervical spine. Urinalysis shows large leukocyte esterase and trace bacteria. This is been sent for culture and is being treated with Macrobid. Patient's hypertension has resolved, tachycardia is much more controlled it is only 106. Patient has recently missed both her metoprolol and her clonidine. Patient did vomit up the clonidine here, she will be given a clonidine patch. She does not have any ketones in her urine. There is no sign of severe dehydration. She has been hydrated using a liter of crystalloid. Vomiting is now under control. Patient will be discharged home. 11/19/17 10:40 Pelvic examination is consistent with vulvovaginal candidiasis causing pain and swelling. Patient is treated with Diflucan and will be discharged home. 11/19/17 10:40 Patient's Keppra was administered through the IV. 11/19/17 10:41 Patient was offered acetaminophen for control of her acute flare of her pain from her lupus. Patient refused this as she felt it would not help. Discussed with patient that the Dilaudid she is requesting for her lupus flare is not an appropriate medication to use in this case. Discussed that Dilaudid is reserved for pain from things like severe marquez and broken bones. (TYLER MERCADO) - Vital Signs Vital signs: Temp Pulse Resp BP Pulse Ox 99 F 143 H 17 123/99 H 100 11/19/17 06:11 11/19/17 06:11 11/19/17 12:01 11/19/17 12:01 11/19/17 12:01 - Laboratory Laboratory results interpreted by me: 11/19/17 11/19/17 11/19/17 06:52 06:52 07:00 RBC 3.31 L Hgb 8.8 L Hct 27.9 L MCH 26.5 L MCHC 31.4 L RDW 16.7 H Sodium 145.2 H Chloride 110 H BUN 5 L Creatinine 0.45 L Glucose 111 H Total Bilirubin < 0.1 L ALT 6 L Alkaline Phosphatase 156 H Total Protein 9.5 H Urine Protein 30 H Ur Leukocyte Esterase LARGE H Discharge <CHARLEEN JEFFRIES - Last Filed: 11/19/17 15:16> <TYLER MERCADO - Last Filed: 11/19/17 15:32> - Discharge Clinical Impression: Vaginal candidiasis, Tachycardia Nausea and vomiting Qualifiers: Vomiting type: unspecified Vomiting Intractability: intractable Qualified Code( s): R11.2 - Nausea with vomiting, unspecified Urinary tract infection Qualifiers: Urinary tract infection type: acute cystitis Hematuria presence: without hematuria Qualified Code(s): N30.00 - Acute cystitis without hematuria Condition: Stable Disposition: HOME, SELF-CARE Additional Instructions: Please use your antinausea drugs that you have at home including Zofran, Phenergan and Reglan. Do not take the Reglan and Phenergan at the same time. Only use one or the other. Taking them together can cause increased anxiety and other interactions. Please take your medications as prescribed. When you take your evening dose of clonidine please take the clonidine patch off. Please take antibiotics as directed until they are gone. Please discuss control of this acute flare of your chronic pain with your primary care physician or pain management doctor. Prescriptions: Fluconazole [Diflucan] 150 mg PO ONCE PRN #1 tablet PRN Reason: Metoclopramide HCl [Reglan 10 mg Tablet] 1 tab PO ASDIR PRN #25 tablet PRN Reason: Nitrofurantoin/Nitrofuran Mac [Macrobid 100 mg Capsule] 1 tab PO BID #10 capsule Ondansetron [Zofran Odt 4 mg Tablet] 1 - 2 tab PO Q4H PRN #15 tab.rapdis PRN Reason: For Nausea/Vomiting Promethazine HCl [Phenergan 25 mg Tablet] 1 - 2 tab PO Q6H PRN #15 tablet PRN Reason: Referrals: ZAIRA ELI MD [Primary Care Provider] - Follow up as needed Scribe Attestation: 11/19/17 15:32 I personally performed the services described in the documentation, reviewed and edited the documentation which was dictated to the scribe in my presence, and it accurately records my words and actions. (TYLER MERCADO) Scribe Documentation - Scribe Written by Zeyad:: Zeyad Rao, 11/19/2017 07:02 acting as scribe for :: Ginny <CHARLEEN JEFFRIES - Last Filed: 11/19/17 15:16>
[2017-11-19] MEDS ORDERED: RINGERS SOLUTION,LACTATED 1,000 ML IV ONE (06:57)
[2017-11-19] MEDS ORDERED: LEVETIRACETAM 500 MG/NACL-ISO 500 MG/100 ML RTUPB IV ONE (06:57)
[2017-11-19 07:10] LABS: ABSOLUTE BASOPHILS # (AUTO) 0.1 10^3/uL (0.0-0.2); ABSOLUTE EOSINOPHILS # (AUTO) 0.3 10^3/uL (0.0-0.6); ABSOLUTE LYMPHOCYTES (AUTO) 1.6 10^3/uL (0.5-4.7); ABSOLUTE MONOCYTES (AUTO) 0.9 10^3/uL (0.1-1.4); ABSOLUTE NEUT (AUTO) 5.2 10^3/uL (1.7-8.2); BASOPHILS % (AUTO) 0.7 % (0-2); EOSINOPHILS % (AUTO) 4.2 % (0-6); HEMATOCRIT 27.9 % (36.0-47.0); HEMOGLOBIN 8.8 g/dL (12.0-15.5); LYMPHOCYTES % (AUTO) 20.3 % (13-45); MEAN CORPUSCULAR HEMOGLOBIN 26.5 pg (27.0-33.4); MEAN CORPUSCULAR HGB CONC 31.4 g/dL (32.0-36.0); MEAN CORPUSCULAR VOLUME 84 fl (80-97); MONOCYTES % (AUTO) 10.8 % (3-13); PLATELET COUNT 306 10^3/uL (150-450); RED BLOOD COUNT 3.31 10^6/uL (3.72-5.28); RED CELL DISTRIBUTION WIDTH 16.7 % (11.5-14.0); TOTAL CELLS COUNTED % (AUTO) 100 %; WHITE BLOOD COUNT 8.1 10^3/uL (4.0-10.5)
[2017-11-19 07:25] LABS: ALANINE AMINOTRANSFERASE 6 U/L (9-52); ALBUMIN 3.7 g/dL (3.5-5.0); ALKALINE PHOSPHATASE 156 U/L (38-126); ANION GAP 13 (5-19); ASPARTATE AMINO TRANSFERASE 19 U/L (14-36); BLOOD UREA NITROGEN 5 mg/dL (7-20); CALCIUM 8.6 mg/dL (8.4-10.2); CARBON DIOXIDE 22 mmol/L (22-30); CHLORIDE 110 mmol/L (98-107); GLUCOSE 111 mg/dL (75-110); LIPASE 39.1 U/L (23-300); POTASSIUM 3.6 mmol/L (3.6-5.0); SODIUM 145.2 mmol/L (137-145); TOTAL PROTEIN 9.5 g/dL (6.3-8.2)
[2017-11-19 07:27] LABS: BILIRUBIN,TOTAL < 0.1 mg/dL (0.2-1.3)
[2017-11-19 07:28] LABS: APPEARANCE,URINE SLIGHTLY-CLOUDY; BILIRUBIN,URINE NEGATIVE (NEGATIVE); COLOR,URINE YELLOW; GLUCOSE, URINE NEGATIVE (NEGATIVE); KETONES,URINE NEGATIVE (NEGATIVE); LEUKOCYTE ESTERASE,URINE LARGE (NEGATIVE); NITRITE,URINE NEGATIVE (NEGATIVE); PROTEIN,URINE 30 mg/dL (NEGATIVE); UROBILINOGEN,URINE NEGATIVE mg/dL (<2.0)
[2017-11-19] MEDS ORDERED: FLUCONAZOLE 100 MG TABLET PO ONE (08:48)
[2017-11-19] MEDS ORDERED: NITROFURANTOIN MONOHYD/M-CRYST 100 MG CAPSULE PO ONE (08:48)
[2017-11-19] MEDS ORDERED: DIPHENHYDRAMINE HCL 50 MG/ML VIAL IV ONE (09:04)
[2017-11-19] MEDS ORDERED: CLONIDINE 0.3 MG/24 HR PATCH.TDWK TD ONE (09:04)
[2017-11-19] MEDS ORDERED: METOCLOPRAMIDE HCL INJ/PF 10 MG/2 ML SDV IV ONE (09:04)
[2017-11-19 11:28] LABS: RBCS (WET MOUNT) FEW RBCS SEEN; T.VAGINALIS (WET MOUNT) NO TRICHOMONAS SEEN; WBCS (WET MOUNT) 3+ WBCS SEEN; YEAST (WET MOUNT) NO YEAST SEEN
[2017-11-19 12:23] VITALS: BP 123/99
[2017-11-19 12:56] LABS: CHLAM PCR NOT DETECTED (NOT DETECT); GON PCR NOT DETECTED (NOT DETECT)
== END 2017-11-19 12:23 | disposition home or self-care (01) ==
LOC: ER 06:02
DX: N30.00 Acute cystitis without hematuria (principal); R11.2 Nausea with vomiting, unspecified; G40.909 Epilepsy, unspecified, not intractable, without status epilepticus; I10 Essential (primary) hypertension; R35.0 Frequency of micturition; Z79.899 Other long term (current) drug therapy
CPT/HCPCS: 36591; 99283; 96372; 36415; 87086; 87210; 83690; 84703; 85025; 80053; 81001; 87491; 87591; J3490; A9270 ×3; J1200; J2765; J2550; J7120; J1953; J8499

== ENCOUNTER 2017-11-21 11:33 | Inpatient (IN) | payer MEDICARE, MEDICAID ==
[2017-11-21] MEDS ORDERED: NORMAL SALINE 1000 ML 1,000 ML IV ONE (11:55)
[2017-11-21] MEDS ORDERED: ONDANSETRON HCL INJ/PF 4 MG/2 ML SDV IV ONE (11:55)
--- NOTE | 2017-11-21 11:57 | ER Document Report ---
ED Medical Screen (RME) - General Chief Complaint: Nausea/Vomiting Stated Complaint: NAUSEA VOMITING Time Seen by Provider: 11/21/17 11:49 Mode of Arrival: Ambulatory Information source: Patient Notes: 22 yr old female hx of lupus , recent neck injury presents with ocmplaints of nausea ovmiting and diarrhea. Pt notes nausea vomiting of a few day duraiton seen here 2 dauys prior. pt notes diarrhea today. I have greeted and performed a rapid initial assessment of this patient. A comprehensive ED assessment and evaluation of the patient, analysis of test results and completion of the medical decision making process will be conducted by additional ED providers. PHYSICAL EXAMINATION: GENERAL: Well-appearing, well-nourished and in no acute distress. HEAD: Atraumatic, normocephalic. EYES: Pupils equal round extraocular movements intact, conjunctiva are normal. ENT: Nares patent NECK: c collar in place Heart: tachycardic LUNGS: No respiratory distress Musculoskeletal: Normal range of motion NEUROLOGICAL: Normal speech, normal gait. PSYCH: Normal mood, normal affect. SKIN: Warm, Dry, normal turgor, no rashes or lesions noted. TRAVEL OUTSIDE OF THE [place] IN LAST 30 DAYS: No - Related Data Allergies/Adverse Reactions: shellfish derived Allergy (Severe, Verified 11/21/17 11:36) Anaphylaxis ketorolac tromethamine [From Toradol] Allergy (Intermediate, Verified 11/21/17 11:36) Hives morphine [Morphine] Allergy (Intermediate, Verified 11/21/17 11:36) Hives sulfamethoxazole [From Bactrim] Allergy (Unknown, Verified 11/21/17 11:36) Pruritis trimethoprim [From Bactrim] Allergy (Unknown, Verified 11/21/17 11:36) Pruritis belimumab [From Benlysta] Allergy (Verified 11/21/17 11:36) rash heparin Allergy (Verified 11/21/17 11:36) HIIT, No reaction with port flush Past Medical History - Past Medical History Cardiac Medical History: Reports: Hx DVT, Hx Hypertension - ON MEDS, Hx Pulmonary Embolism Denies: Hx Coronary Artery Disease, Hx Heart Attack, Hx Hypercholesterolemia Pulmonary Medical History: Reports: Hx Asthma - CHILDHOOD ASTHMA, Hx Pneumonia Denies: Hx Bronchitis, Hx COPD, Hx Tuberculosis Neurological Medical History: Reports: Hx Migraine, Hx Seizures - ON MEDS (MARCH 2017). Denies: Hx Cerebrovascular Accident Endocrine Medical History: Denies: Hx Diabetes Mellitus Type 1, Hx Diabetes Mellitus Type 2, Hx Hyperthyroidism, Hx Hypothyroidism Renal/ Medical History: Denies: Hx Peritoneal Dialysis GI Medical History: Reports: Hx Gastritis, Hx Gastroesophageal Reflux Disease, Hx Ulcer, Hx Endoscopy. Denies: Hx Cirrhosis, Hx Hepatitis Musculoskeltal Medical History: Reports Hx Arthritis - LUPUS Skin Medical History: Reports Hx Cellulitis Psychiatric Medical History: Reports: Hx Anxiety Denies: Hx Depression Infectious Medical History: Reports: Hx C-Diff, Hx MRSA. Denies: Hx Hepatitis Past Surgical History: Reports: Hx Abdominal Surgery - PEG tube, Other - PEG placement 2, Port-A-Cath. Denies: Hx Hysterectomy - Immunizations Immunizations up to date: Yes Hx Diphtheria, Pertussis, Tetanus Vaccination: Yes History of Influenza Vaccine for 07/2017 - 12/2017 Season: Yes Influenza Administration Date for 07/2017 - 12/2017 Season: 10/04/17 Physical Exam - Vital signs Vitals: Temp Pulse Resp BP Pulse Ox 99.0 F 143 H 20 142/102 H 99 11/21/17 11:41 11/21/17 11:41 11/21/17 11:41 11/21/17 11:41 11/21/17 11:41 Course - Vital Signs Vital signs: Temp Pulse Resp BP Pulse Ox 99.0 F 143 H 20 142/102 H 99 11/21/17 11:41 11/21/17 11:41 11/21/17 11:41 11/21/17 11:41 11/21/17 11:41
[2017-11-21 12:17] LABS: APPEARANCE,URINE CLEAR; BILIRUBIN,URINE NEGATIVE (NEGATIVE); COLOR,URINE STRAW; GLUCOSE, URINE NEGATIVE (NEGATIVE); KETONES,URINE NEGATIVE (NEGATIVE); LEUKOCYTE ESTERASE,URINE TRACE (NEGATIVE); NITRITE,URINE NEGATIVE (NEGATIVE); PROTEIN,URINE NEGATIVE (NEGATIVE); URINE SPECIFIC GRAVITY 1.009; UROBILINOGEN,URINE NEGATIVE mg/dL (<2.0)
--- NOTE | 2017-11-21 12:26 | ER Document Report ---
ED General - General Chief Complaint: Nausea/Vomiting Stated Complaint: NAUSEA VOMITING Time Seen by Provider: 11/21/17 11:49 Mode of Arrival: Ambulatory Information source: Patient TRAVEL OUTSIDE OF THE [place] IN LAST 30 DAYS: No - HPI Onset: Other - SEVERAL DAYS Onset/Duration: Gradual Quality of pain: Achy, Burning Severity: Moderate Associated symptoms: Diarrhea, Headache, Nausea, Vomiting, Other - LOW BACK & LOWER EXTREMITY PAIN. denies: Nonproductive cough, Productive cough, Shortness of breath Exacerbated by: Movement Relieved by: Remaining still Similar symptoms previously: Yes Recently seen / treated by doctor: Yes - SAÚL Martínez, 2 DAYS AGO - Related Data Allergies/Adverse Reactions: shellfish derived Allergy (Severe, Verified 11/21/17 11:36) Anaphylaxis ketorolac tromethamine [From Toradol] Allergy (Intermediate, Verified 11/21/17 11:36) Hives morphine [Morphine] Allergy (Intermediate, Verified 11/21/17 11:36) Hives sulfamethoxazole [From Bactrim] Allergy (Unknown, Verified 11/21/17 11:36) Pruritis trimethoprim [From Bactrim] Allergy (Unknown, Verified 11/21/17 11:36) Pruritis belimumab [From Benlysta] Allergy (Verified 11/21/17 11:36) rash heparin Allergy (Verified 11/21/17 11:36) HIIT, No reaction with port flush Past Medical History - General Information source: Patient - Social History Smoking Status: Never Smoker Chew tobacco use (# tins/day): No Frequency of alcohol use: None Drug Abuse: None Lives with: Family Family History: None, Other - Lupus-mother Patient has suicidal ideation: No Patient has homicidal ideation: No - Past Medical History Cardiac Medical History: Reports: Hx DVT, Hx Hypertension - ON MEDS, Hx Pulmonary Embolism Denies: Hx Coronary Artery Disease, Hx Heart Attack, Hx Hypercholesterolemia Pulmonary Medical History: Reports: Hx Asthma - CHILDHOOD ASTHMA, Hx Pneumonia Denies: Hx Bronchitis, Hx COPD, Hx Tuberculosis Neurological Medical History: Reports: Hx Migraine, Hx Seizures - ON MEDS (MARCH 2017). Denies: Hx Cerebrovascular Accident Endocrine Medical History: Denies: Hx Diabetes Mellitus Type 1, Hx Diabetes Mellitus Type 2, Hx Hyperthyroidism, Hx Hypothyroidism Renal/ Medical History: Reports: None. Denies: Hx Peritoneal Dialysis Malignancy Medical History: Reports: None GI Medical History: Reports: Hx Gastritis, Hx Gastroesophageal Reflux Disease, Hx Ulcer, Hx Endoscopy. Denies: Hx Cirrhosis, Hx Hepatitis Musculoskeltal Medical History: Reports Hx Arthritis - LUPUS Skin Medical History: Reports Hx Cellulitis Psychiatric Medical History: Reports: Hx Anxiety Denies: Hx Depression Infectious Medical History: Reports: Hx C-Diff, Hx MRSA. Denies: Hx Hepatitis Past Surgical History: Reports: Hx Abdominal Surgery - PEG tube, Hx Neurologic Surgery - C-SPINE Fx STABILIZATION, Other - PEG placement 2, Port-A-Cath. Denies: Hx Hysterectomy - Immunizations Immunizations up to date: Yes Hx Diphtheria, Pertussis, Tetanus Vaccination: Yes Hx Pneumococcal Vaccination: 10/04/14 Review of Systems - Review of Systems Constitutional: Fever - TO 100.0 @ HOME EENT: No symptoms reported Cardiovascular: No symptoms reported Respiratory: No symptoms reported Gastrointestinal: See HPI Genitourinary: No symptoms reported Female Genitourinary: No symptoms reported Musculoskeletal: See HPI, Back pain, Joint pain Skin: No symptoms reported Neurological/Psychological: No symptoms reported -: Yes All other systems reviewed and negative Physical Exam - Vital signs Vitals: Temp Pulse Resp BP Pulse Ox 99.0 F 143 H 20 142/102 H 99 11/21/17 11:41 11/21/17 11:41 11/21/17 11:41 11/21/17 11:41 11/21/17 11:41 Interpretation: Hypertensive, Tachycardic. No: Tachypneic, Febrile - General General appearance: Appears well, Alert In distress: None - HEENT Head: Normocephalic Eyes: Normal Conjunctiva: Normal Ears: Normal Nasal: Normal Mouth/Lips: Normal Mucous membranes: Dry - MILDLY Pharynx: Normal Neck: Normal - Respiratory Respiratory status: No respiratory distress Breath sounds: Normal - Cardiovascular Rhythm: Regular, Tachycardia Heart sounds: Normal auscultation Murmur: No - Abdominal Inspection: Normal Distension: No distension Bowel sounds: Hypoactive Tenderness: Tender - MILD, SUPRAPUBIC - Extremities General upper extremity: Normal inspection General lower extremity: Normal inspection - Neurological Neuro grossly intact: Yes Cognition: Normal Orientation: AAOx4 - Psychological Associated symptoms: Normal affect, Normal mood - Skin Skin Temperature: Warm Skin Moisture: Dry Skin Color: Normal Skin Turgor: Elastic Course - Vital Signs Vital signs: Temp Pulse Resp BP Pulse Ox 99.0 F 143 H 24 H 114/70 100 11/21/17 11:41 11/21/17 11:41 11/21/17 13:03 11/21/17 13:03 11/21/17 13:03 - Laboratory Result Diagrams: 11/21/17 13:00 11/21/17 13:00 Laboratory results interpreted by me: 11/21/17 11/21/17 11/21/17 12:00 13:00 13:00 RBC 3.24 L Hgb 8.5 L Hct 26.8 L MCH 26.1 L MCHC 31.5 L RDW 16.8 H ESR 118 H Chloride 110 H BUN 4 L Creatinine 0.40 L Total Bilirubin 0.1 L Alkaline Phosphatase 160 H Total Protein 9.8 H Ur Leukocyte Esterase TRACE H - Consults DR. MEJÍA Time consulted: 16:52 Consulted provider: will come to ER
[2017-11-21] MEDS ORDERED: PROMETHAZINE HCL INJ 25 MG/1 ML VIAL IV ONE ×2 (12:33→14:11)
[2017-11-21] MEDS ORDERED: HYDROMORPHONE HCL INJ/PF 2 MG/ML AMPULE IV ONE ×2 (12:34→15:24)
[2017-11-21 13:18] LABS: ABSOLUTE EOSINOPHILS # (AUTO) 0.1 10^3/uL (0.0-0.6); ABSOLUTE LYMPHOCYTES (AUTO) 0.9 10^3/uL (0.5-4.7); ABSOLUTE MONOCYTES (AUTO) 0.6 10^3/uL (0.1-1.4); ABSOLUTE NEUT (AUTO) 3.7 10^3/uL (1.7-8.2); BASOPHILS % (AUTO) 0.7 % (0-2); EOSINOPHILS % (AUTO) 1.6 % (0-6); HEMATOCRIT 26.8 % (36.0-47.0); HEMOGLOBIN 8.5 g/dL (12.0-15.5); LYMPHOCYTES % (AUTO) 17.2 % (13-45); MEAN CORPUSCULAR HEMOGLOBIN 26.1 pg (27.0-33.4); MEAN CORPUSCULAR HGB CONC 31.5 g/dL (32.0-36.0); MEAN CORPUSCULAR VOLUME 83 fl (80-97); MONOCYTES % (AUTO) 11.2 % (3-13); PLATELET COUNT 307 10^3/uL (150-450); RED BLOOD COUNT 3.24 10^6/uL (3.72-5.28); RED CELL DISTRIBUTION WIDTH 16.8 % (11.5-14.0); SEGMENTED NEUTROPHILS % (AUTO) 69.3 % (42-78); TOTAL CELLS COUNTED % (AUTO) 100 %; WHITE BLOOD COUNT 5.4 10^3/uL (4.0-10.5)
[2017-11-21 13:34] LABS: ALANINE AMINOTRANSFERASE 18 U/L (9-52); ALBUMIN 3.8 g/dL (3.5-5.0); ALKALINE PHOSPHATASE 160 U/L (38-126); ANION GAP 11 (5-19); ASPARTATE AMINO TRANSFERASE 21 U/L (14-36); BILIRUBIN,DIRECT 0.1 mg/dL (0.0-0.4); BILIRUBIN,TOTAL 0.1 mg/dL (0.2-1.3); BLOOD UREA NITROGEN 4 mg/dL (7-20); CALCIUM 8.9 mg/dL (8.4-10.2); CARBON DIOXIDE 22 mmol/L (22-30); CHLORIDE 110 mmol/L (98-107); GLUCOSE 104 mg/dL (75-110); POTASSIUM 3.8 mmol/L (3.6-5.0); SODIUM 143.3 mmol/L (137-145); TOTAL PROTEIN 9.8 g/dL (6.3-8.2)
[2017-11-21 13:56] LABS: ERYTHROCYTE SEDIMENTATION RATE 118 mm/hr (0-20)
[2017-11-21] MEDS ORDERED: DEXAMETHASONE SOD PHOS INJ 10 MG/1 ML VIAL IV ONE (14:12)
[2017-11-21] MEDS ORDERED: DIPHENHYDRAMINE HCL 50 MG/ML VIAL IV ONE (14:46)
[2017-11-21] MEDS ORDERED: DIPHENHYDRAMINE HCL 25 MG/10 ML UDC ONE (14:47)
[2017-11-21] MEDS ORDERED: DIPHENHYDRAMINE HCL 50 MG/ML VIAL ONE (14:48)
[2017-11-21 15:37] LABS: URINE AMPHETAMINES SCREEN NEGATIVE; URINE BARBITURATES SCREEN UNCONFIRMED POSITIVE; URINE BENZODIAZEPINES SCREEN UNCONFIRMED POSITIVE; URINE COCAINE SCREEN NEGATIVE; URINE MARIJUANA (THC) SCREEN NEGATIVE; URINE METHADONE SCREEN NEGATIVE; URINE PHENCYCLIDINE SCREEN NEGATIVE
[2017-11-21] MEDS ORDERED: LEVETIRACETAM 1000 MG/NACL-ISO 1,000 MG/100 ML RTUPB IV ONE (15:56)
[2017-11-21] MEDS ORDERED: LEVETIRACETAM 500 MG/NACL-ISO 500 MG/100 ML RTUPB IV ONE (16:00)
[2017-11-21] MEDS ORDERED: TIZANIDINE HCL 4 MG TABLET PO PRN (18:52)
[2017-11-21] MEDS ORDERED: BUTALB/ACETAMINOPHEN/CAFFEINE 1 TAB EACH PO PRN (18:52)
[2017-11-21] MEDS ORDERED: FLUCONAZOLE 100 MG TABLET PO ONE (20:00)
[2017-11-21] MEDS ORDERED: NYSTATIN TOPICAL POWDER 15 GM TP ONE (20:00)
[2017-11-21] MEDS ORDERED: DEXAMETHASONE SOD PHOSPHATE INJ 4 MG/1 ML VIAL IV ONE (20:00)
--- NOTE | 2017-11-21 20:08 | PDOC H&P ---
History of Present Illness Admission Date/PCP: 11/21/17 18:19 ZAIRA ELI MD Patient complains of: Nausea vomiting weakness diarrhea History of Present Illness: JOSE DUMONT is a 22 year old female who has a history of lupus, antiphospholipid antibody syndrome, seizure disorder who last fall sustained an odontoid fracture which she continues to recover. About mid week last week she started to feel weak with some dysuria and she came into the ER. She was treated with macrobid for UTI, achieved other treatment in the ER and then was discharged home in improved condition. She states that she never really got better and she had worsening weakness and then developed nausea vomiting and diarrhea. She states that these symptoms are consistent with a lupus flare due to failure to improve at home she came back to the ER today. She is feeling some better after some of the medications she is received in the ER though still is having a hard time tolerating anything by mouth. 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 Denies: Diabetes Mellitus Type 1, Diabetes Mellitus Type 2, Hyperthyroidism, Hypothyroidism Renal/ Medical History: Reports: None Malignancy Medical History: Reports: None GI Medical History: Reports: Gastroesophageal Reflux Disease Denies: Cirrhosis, Hepatitis Musculoskeltal Medical History: Reports: Arthritis - LUPUS Psychiatric Medical History: Reports: General Anxiety Disorder Denies: Depression Traumatic Medical History: Reports: Other - Odontoid fracture secondary to seizure at home Hematology: Reports: Anemia, Heparin Induced Thrombocytopenia - History of same Infectious Medical History: Reports: Clostridium Difficile, Methicillin- Resistant Staph Aureus Past Surgical History Past Surgical History: Reports: Other - PEG placement 2, Port-A-Cath, odontoid fxr repair late 2016 [employer] Denies: Hysterectomy Social History Information Source: Patient Lives with: Family Smoking Status: Never Smoker Frequency of Alcohol Use: Occasional Amount of Alcoholic Beverages Per Day: Aspirin 1 per day, she drinks a rare glass of wine when out for dinner Hx Recreational Drug Use: No Drugs: None Hx Prescription Drug Abuse: No Past Social History Note: 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 - Advance Directive Resuscitation Status: Full Code Family History Family History: None, Hypertension, Other - Lupus-mother Family History: Patient's mother has severe lupus, sister has fibrocystic breast disease, father has hypertension Parental Family History Reviewed: Yes Children Family History Reviewed: NA Sibling(s) Family History Reviewed.: Yes Medication/Allergy Home Medications: Alprazolam [Xanax] 1 mg PO Q12 10/23/17 Clonidine HCl [Catapres 0.3 mg Tablet] 0.3 mg PO Q12 10/23/17 Cyclobenzaprine HCl [Flexeril 10 mg Tablet] 10 mg PO QHS 10/23/17 Ondansetron [Zofran Odt] 8 mg PO QIDP PRN 10/23/17 Tizanidine HCl [Zanaflex] 6 mg PO Q8HP PRN 10/23/17 Zolpidem Tartrate [Ambien] 10 mg PO QHS 10/23/17 Metoprolol Tartrate [Lopressor 50 mg Tablet] 50 mg PO Q12 #60 tablet 10/27/17 Promethazine HCl [Phenergan 25 mg Tablet] 1 - 2 tab PO Q6H PRN #15 tablet Butalb/Acetaminophen/Caffeine [Fioricet (50-325-40 mg) Tablet] 1 tab PO Q4HP PRN 11/21/17 Diphenhydramine HCl [Benadryl] 11/21/17 Fondaparinux Sodium [Arixtra Inj 7.5 mg/0.6 ml Disp. Syrin] 7.5 mg SUBCUT DAILY 11/21/17 Hydroxychloroquine Sulfate [Plaquenil 200 mg Tablet] 200 mg PO DAILY 11/21/17 Lansoprazole [Prevacid] 15 mg PO DAILY 11/21/17 Levetiracetam [Keppra] 500 mg PO BID 11/21/17 Mycophenolate Mofetil [Cellcept] 500 mg PO DAILY 11/21/17 Nystatin/Dexameth/Diphen [Magic Mouthwash] 11/21/17 Oxycodone HCl/Acetaminophen [Percocet 10-325 Mg Tablet] 1 each PO PRN 11/21/17 Prednisone 5 mg PO DAILY 11/21/17 Allergies/Adverse Reactions: shellfish derived Allergy (Severe, Verified 11/21/17 11:36) Anaphylaxis ketorolac tromethamine [From Toradol] Allergy (Intermediate, Verified 11/21/17 11:36) Hives morphine [Morphine] Allergy (Intermediate, Verified 11/21/17 11:36) Hives sulfamethoxazole [From Bactrim] Allergy (Unknown, Verified 11/21/17 11:36) Pruritis trimethoprim [From Bactrim] Allergy (Unknown, Verified 11/21/17 11:36) Pruritis belimumab [From Benlysta] Allergy (Verified 11/21/17 11:36) rash heparin Allergy (Verified 11/21/17 11:36) HIIT, No reaction with port flush Review of Systems Constitutional: PRESENT: fatigue, headache(s), night sweats, weight loss Eyes: ABSENT: visual disturbances Nose, Mouth, and Throat: PRESENT: mouth pain Respiratory: ABSENT: dyspnea, hemoptysis, sputum Gastrointestinal: PRESENT: diarrhea, nausea, vomiting. ABSENT: coffee ground emesis, hematochezia, melena Genitourinary: PRESENT: other - Urinary frequency, patient has a malodorous white vaginal discharge Neurological: PRESENT: convulsions, weakness. ABSENT: confusion, dizziness, focal weakness, frequent falls, numbness, paresthesias Psychiatric: PRESENT: anxiety. ABSENT: depression Hematologic/Lymphatic: PRESENT: other - Antiphospholipid antibody syndrome Allergic/Immunologic: PRESENT: other - Lupus Physical Exam Vital Signs: Temp Pulse Resp BP Pulse Ox 99.0 F 143 H 27 H 167/122 H 100 11/21/17 11:41 11/21/17 11:41 11/21/17 19:01 11/21/17 19:01 11/21/17 19:01 General appearance: PRESENT: no acute distress, cooperative, thin Head exam: PRESENT: atraumatic, normocephalic Eye exam: PRESENT: conjunctiva pink, EOMI. ABSENT: periorbital swelling Ear exam: PRESENT: normal external ear exam Mouth exam: PRESENT: moist Teeth exam: PRESENT: other - Patient is edentulous and has a full set of upper and lower dentures Neck exam: PRESENT: other - Patient is in a hard c-collar, recently had removal of her halo after C-spine surgery Respiratory exam: PRESENT: clear to auscultation tavia, unlabored. ABSENT: rales , rhonchi, wheezes Cardiovascular exam: PRESENT: tachycardia. ABSENT: systolic murmur Pulses: PRESENT: normal radial pulses, normal dorsalis pedis pul GI/Abdominal exam: PRESENT: normal bowel sounds, soft. ABSENT: distended, guarding, tenderness Rectal exam: PRESENT: deferred Gentrourinary exam: PRESENT: other - Suprapubic tenderness to palpation, erythematous moist skin around labia and in groin Musculoskeletal exam: PRESENT: normal inspection, tenderness Neurological exam: PRESENT: alert, awake, oriented to person, oriented to place , oriented to situation, CN II-XII grossly intact. ABSENT: motor sensory deficit Psychiatric exam: PRESENT: appropriate affect. ABSENT: anxious Skin exam: PRESENT: normal color, warm. ABSENT: rash Assessment & Plan - Diagnosis (1) SLE (systemic lupus erythematosus) Qualifiers: Systemic lupus erythematosus type: unspecified Systemic lupus erythematosus organ involvement: unspecified Qualified Code(s): M32.9 - Systemic lupus erythematosus, unspecified Is this a current diagnosis for this admission?: Yes Plan: With flare. The flare may be related to infection, not entirely clear at this point. May have an incompletely treated urinary tract infection. She does have vulvovaginal yeast infection. Blood and urine cultures are pending. No respiratory symptoms to suggest pulmonary infection. Afebrile now. Patient is usually on 5 mg of prednisone daily. I will increase her prednisone dose to about 20 mg daily and use IV dexamethasone 4 mg daily. Patient states that when she has a lupus flare she usually has her prednisone increased to 10 mg. We will see how she does with this dosing and monitor closely. She has an elevated sed rate of greater than 100. Plaquenil was restarted and CellCept not yet ordered as we do not know her home dose. Nurse has been asked to call when dose is known. (2) Abdominal pain Qualifiers: Abdominal location: generalized Qualified Code(s): R10.84 - Generalized abdominal pain Is this a current diagnosis for this admission?: Yes Plan: Considering viral gastroenteritis. Treat with IV fluids, Phenergan, Zofran as needed. Patient also is on Dilaudid 2 mg IV every 4 hours as needed pain. This Is a common dose for her. (3) Chronic anticoagulation Is this a current diagnosis for this admission?: Yes Plan: She is on chronic anticoagulation for antiphospholipid antibody syndrome, multiple DVTs in the past. Continue her Arixtra 7.5 mg daily. She has a history of nikita. (4) Chronic pain Is this a current diagnosis for this admission?: Yes Plan: Patient is on Percocet 15 mg of oxycodone and 325 of Tylenol every 6 hours as needed pain at home. Due To inability to take p.o. well she is on IV Dilaudid for her chronic and acute pain. (5) DVT prophylaxis Is this a current diagnosis for this admission?: Yes Plan: Arixtra 7.5 mg daily (6) Diarrhea Qualifiers: Diarrhea type: unspecified type Qualified Code(s): R19.7 - Diarrhea, unspecified Is this a current diagnosis for this admission?: Yes Plan: Possibly infectious. C. difficile and stool cultures have been ordered and are pending. (7) Headache Qualifiers: Headache type: unspecified Headache chronicity pattern: chronic headache Intractability: not intractable Qualified Code(s): R51 - Headache Is this a current diagnosis for this admission?: Yes Plan: Has a history of migraines and takes as needed Fioricet. She is not having a migraine now but does have right headache when she is retching. She has as needed pain meds available. (8) Hypertension Is this a current diagnosis for this admission?: Yes Plan: Patient's metoprolol and clonidine are continued. If she is unable to keep these down we will have to convert to IV or other formulation. (9) Nausea & vomiting Qualifiers: Vomiting type: unspecified Vomiting Intractability: intractable Qualified Code(s): R11.2 - Nausea with vomiting, unspecified (10) Seizure disorder Is this a current diagnosis for this admission?: Yes Plan: Patient is unclear of her Keppra dose. She knows that she is on at least 500 mg every 12 hours and so that so we have ordered. She will receive it IV she is unable to reliably take p.o. her nurse will call the doctor when we know what her doses so we can change this order if needed. Seizure precautions have been ordered. (11) Suspected lupus flare Is this a current diagnosis for this admission?: Yes Plan: Dexamethasone 4 mg IV daily. As needed pain medication. Treat underlying infections. (12) Tachycardia Is this a current diagnosis for this admission?: Yes Plan: This is multifactorial. Patient has nausea and vomiting and possibly some dehydration, in addition patient has not taken her beta-avery today. Metoprolol as ordered and if she cannot keep it down with premedication for nausea then we will convert this to IV. (13) UTI (urinary tract infection) Qualifiers: Urinary tract infection type: acute cystitis Hematuria presence: without hematuria Qualified Code(s): N30.00 - Acute cystitis without hematuria (14) Yeast infection of the vagina Is this a current diagnosis for this admission?: Yes Plan: Fluconazole 150 mg p.o. 1 ordered and patient is to be premedicated with Phenergan. Topical nystatin has been ordered as well. (15) Antiphospholipid syndrome Is this a current diagnosis for this admission?: Yes Plan: Continue Arixtra. - Time Time Spent: Greater than 70 Minutes Medications reviewed and adjusted accordingly: Yes - Inpatient Certification Based on my medical assessment, after consideration of the patient's comorbidities, presenting symptoms, or acuity I expect that the services needed warrant INPATIENT care.: Yes I certify that my determination is in accordance with my understanding of Medicare's requirements for reasonable and necessary INPATIENT services [42 CFR 412.3e].: Yes Medical Necessity: Failure to Improve With Outpatient Therapy, Significant Comorbidiites Make Outpatient Treatment Too Risky, Need Close Monitoring Due to Risk of Patient Decompensation, Need For IV Fluids, Need For Continuous Telemetry Monitoring, Risk of Complication if Not Cared For in Hospital
[2017-11-21] MEDS: HYDROMORPHONE HCL INJ/PF 2 MG/ML AMPULE IV PRN (21:03)
[2017-11-21] MEDS: ONDANSETRON HCL INJ/PF 4 MG/2 ML SDV IV PRN (21:03)
[2017-11-21] MEDS: ZOLPIDEM TARTRATE 5 MG TABLET PO SCH (21:52)
[2017-11-21] MEDS: ALPRAZOLAM 0.5 MG TABLET PO SCH (21:53)
[2017-11-21] MEDS: CLONIDINE HCL 0.2 MG TABLET PO SCH (21:56)
[2017-11-21] MEDS: METOPROLOL TARTRATE 50 MG TABLET PO SCH (21:58)
[2017-11-21] MEDS: CYCLOBENZAPRINE HCL 10 MG TABLET PO SCH (21:58)
[2017-11-21] MEDS: RINGERS SOLUTION,LACTATED 1,000 ML IV PRN (22:30)
[2017-11-22] MEDS ORDERED: METHYLPREDNISOLONE INJ 125 MG/2 ML SDV ONE (00:16)
[2017-11-22] MEDS: HYDROMORPHONE HCL INJ/PF 2 MG/ML AMPULE IV PRN ×6 (01:12→21:58)
[2017-11-22 03:53] LABS: HEMATOCRIT 26.6 % (36.0-47.0); HEMOGLOBIN 8.4 g/dL (12.0-15.5); MEAN CORPUSCULAR HEMOGLOBIN 26.3 pg (27.0-33.4); MEAN CORPUSCULAR HGB CONC 31.4 g/dL (32.0-36.0); MEAN CORPUSCULAR VOLUME 84 fl (80-97); PLATELET COUNT 313 10^3/uL (150-450); RED BLOOD COUNT 3.18 10^6/uL (3.72-5.28)
[2017-11-22 04:05] LABS: ANION GAP 13 (5-19); BLOOD UREA NITROGEN 4 mg/dL (7-20); CALCIUM 9.2 mg/dL (8.4-10.2); CARBON DIOXIDE 21 mmol/L (22-30); CHLORIDE 106 mmol/L (98-107); GLUCOSE 134 mg/dL (75-110); POTASSIUM 4.4 mmol/L (3.6-5.0); SODIUM 139.8 mmol/L (137-145)
[2017-11-22 04:06] LABS: WHITE BLOOD COUNT 2.9 10^3/uL (4.0-10.5)
[2017-11-22] MEDS: ONDANSETRON HCL INJ/PF 4 MG/2 ML SDV IV PRN (05:13)
[2017-11-22] MEDS: PROMETHAZINE HCL INJ 25 MG/1 ML VIAL IV PRN ×2 (07:16→16:56)
[2017-11-22] MEDS ORDERED: LANSOPRAZOLE 15 MG TAB.RAP.DR PO ONE (08:00)
[2017-11-22] MEDS: DEXAMETHASONE SOD PHOSPHATE INJ 4 MG/1 ML VIAL IV SCH ×3 (08:11→21:58)
[2017-11-22] MEDS: RINGERS SOLUTION,LACTATED 1,000 ML IV PRN ×2 (09:36→17:46)
[2017-11-22] MEDS: ALPRAZOLAM 0.5 MG TABLET PO SCH ×2 (09:37→21:55)
[2017-11-22] MEDS: DIPHENHYDRAMINE HCL 50 MG/ML VIAL IV PRN ×2 (09:39→21:57)
[2017-11-22] MEDS: METOPROLOL TARTRATE 50 MG TABLET PO SCH ×2 (09:39→21:55)
[2017-11-22] MEDS: HYDROXYCHLOROQUINE SULFATE 200 MG TABLET PO SCH (09:40)
[2017-11-22] MEDS: CLONIDINE HCL 0.2 MG TABLET PO SCH ×2 (09:40→21:56)
[2017-11-22] MEDS: NYSTATIN TOPICAL POWDER 15 GM TP SCH ×2 (09:41→17:26)
[2017-11-22] MEDS: LEVETIRACETAM 500 MG/NACL-ISO 500 MG/100 ML RTUPB IV SCH ×2 (09:52→21:57)
[2017-11-22] MEDS ORDERED: LANSOPRAZOLE 15 MG TAB.RAP.DR PO SCH (10:00)
[2017-11-22] MEDS ORDERED: NYSTATIN/DEXAMETH/DIPHEN SUSP 120 ML PO PRN (10:00)
[2017-11-22] MEDS ORDERED: DEXAMETHASONE SOD PHOSPHATE INJ 4 MG/1 ML VIAL IV SCH (10:00)
--- NOTE | 2017-11-22 10:55 | Physician Advisory Note ---
Physician Advisor ProgressNote .: [facility] I have reviewed the medical record for this patient. Physician Advisor Statement: This attending documents clinical reasoning & concerns on her patients very well. Please consider documenting, if you agree: 1. "chronic opioid & benzo dependence" 2. 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 strength, & clinical importance such as (A) nutritional assessment ordered, (B) modified diet or supplements ordered, (C) additional labs ordered, (D) prolonged wound healing time, (E) delayed infxn clearance] Status: 22yo very complex pt w/SLE, APL Ab synd, prior HIT, HTN, severe osteoporosis due to prolonged chronic steroids, chronic pain w/high tolerance for opioids, now in w/lupus flare, UTI, possible viral GE, unable to reliably take po meds for her chronic & acute illnesses, at high risk for worsening/ complicated infxns due to steroids that she needs more of at present due to lupus flare, at risk for withdrawal from her chronic opioids due to inability to keep down oral meds, but at risk for complications from IV Dilaudid as well. Has needed IV Dilaudid 4x in less than 24 hrs already. Also at risk for withdrawal from Xanax & Keppra, which could cause seizures, and for more fx.s from sz.s due to severe osteoporosis. On IVF @100. Veru complex pt w/high medical risks at present. Has already stayed 1 MN in hospital & expected to require at least a 2nd MN of hospital level tx & monitoring. Recurrent tachycardia & tachypnea as well. Appropriate for Inpt status. CK
[2017-11-22] MEDS: FONDAPARINUX SODIUM INJ 7.5 MG/0.6 ML DISP.SYRIN SUBCUT SCH (11:35)
--- NOTE | 2017-11-22 17:36 | PDOC PROGRESS REPORT ---
Subjective Progress Note for:: 11/22/17 Subjective:: This is a follow-up visit for lupus flare. The patient states that she definitely thinks she is in a lupus flare and has pain. She states that she also has pressure over her bladder as well as urinary frequency. She tells me that she is glad to be in a c-collar and out of the halo after her recent surgery. Reason For Visit: NAUSEA VOMITING DIARRHEA POSSIBLE LUPUS FLARE Physical Exam Vital Signs: Temp Pulse Resp BP Pulse Ox 98.7 F 83 18 125/94 H 98 11/22/17 16:09 11/22/17 16:09 11/22/17 16:09 11/22/17 16:09 11/22/17 16:09 Intake & Output 11/21/17 11/22/17 11/23/17 06:59 06:59 06:59 Intake Total 450 Balance 450 Weight 56.8 kg GENERAL: This is a well-developed and reasonably nourished appearing in bed currently in no acute distress. HEENT: Normocephalic. Atraumatic. The patient is currently in a c-collar. Her c-collar appears a bit too large as her chin recesses too far back into the collar itself. HEART: Regular rate and rhythm. Positive murmur. No rubs or gallops. LUNGS: Clear to auscultation bilaterally with equal rise and fall of the chest. ABDOMEN: Soft, nontender, nondistended with normoactive bowel sounds EXTREMETIES: No clubbing, cyanosis or edema. 2+ peripheral pulses bilaterally. NEURO: Awake, alert and oriented 3. Cranial nerves II through XII are grossly intact. Results Laboratory Results: 11/22/17 03:35 11/22/17 03:35 11/22/17 11/22/17 03:35 03:35 WBC 2.9 L D RBC 3.18 L Hgb 8.4 L Hct 26.6 L MCV 84 MCH 26.3 L MCHC 31.4 L RDW 17.0 H Plt Count 313 Sodium 139.8 Potassium 4.4 Chloride 106 Carbon Dioxide 21 L Anion Gap 13 BUN 4 L Creatinine 0.38 L Est GFR ( Amer) > 60 Est GFR (Non-Af Amer) > 60 Glucose 134 H Calcium 9.2 11/21/17 11/22/17 11/22/17 21:00 03:35 10:45 Troponin I < 0.012 < 0.012 < 0.012 Assessment & Plan - Diagnosis (1) Headache Qualifiers: Headache type: unspecified Headache chronicity pattern: chronic headache Intractability: not intractable Qualified Code(s): R51 - Headache Is this a current diagnosis for this admission?: Yes Plan: The patient is already receiving pain medications. Supportive care. (2) Diarrhea Qualifiers: Diarrhea type: unspecified type Qualified Code(s): R19.7 - Diarrhea, unspecified Is this a current diagnosis for this admission?: Yes Plan: Seems to have slowed. Supportive care. (3) Hypertension Is this a current diagnosis for this admission?: Yes Plan: Continue current medications. Patient is on metoprolol (4) Nausea & vomiting Qualifiers: Vomiting type: unspecified Vomiting Intractability: intractable Qualified Code(s): R11.2 - Nausea with vomiting, unspecified Is this a current diagnosis for this admission?: Yes Plan: Patient is currently feeling nauseous. Continue as needed antiemetics. (5) SLE (systemic lupus erythematosus) Qualifiers: Systemic lupus erythematosus type: unspecified Systemic lupus erythematosus organ involvement: unspecified Qualified Code(s): M32.9 - Systemic lupus erythematosus, unspecified Is this a current diagnosis for this admission?: Yes Plan: Continue steroids as ordered. The patient has a follow-up appointment with Dr. Littlejohn on December 03. (6) UTI (urinary tract infection) Qualifiers: Urinary tract infection type: acute cystitis Hematuria presence: without hematuria Qualified Code(s): N30.00 - Acute cystitis without hematuria Is this a current diagnosis for this admission?: Yes Plan: The patient complains of dysuria. Urine culture is pending. Pyridium will be prescribed today. The patient does not have elevated white count. Begin Augmentin empirically. (7) Odontoid fracture Is this a current diagnosis for this admission?: Yes Plan: Patient remains in c-collar. Her surgery was performed at [facility]. She has a follow-up appointment the second week of December. (8) Chronic, continuous use of opioids Is this a current diagnosis for this admission?: Yes Plan: The patient is on chronic opioids at home and is currently on Dilaudid here. (9) Chronic pain Is this a current diagnosis for this admission?: Yes Plan: Chronic pain secondary to SLE. The patient is on chronic opioids at home and currently is here on Dilaudid. - Time Time Spent with patient: 15-24 minutes
[2017-11-22] MEDS: ZOLPIDEM TARTRATE 5 MG TABLET PO SCH (21:54)
[2017-11-22] MEDS: CYCLOBENZAPRINE HCL 10 MG TABLET PO SCH (21:56)
[2017-11-22] MEDS ORDERED: AMOXICILLIN TR/POT CLAVULANATE 500-125 MG TAB PO SCH (22:00)
[2017-11-22] MEDS: PHENAZOPYRIDINE HCL 100 MG TABLET PO SCH (22:29)
[2017-11-22] MEDS: MYCOPHENOLATE 200 MG/ML PO SCH (22:30)
[2017-11-23] MEDS: PROMETHAZINE HCL INJ 25 MG/1 ML VIAL IV PRN ×3 (02:18→18:55)
[2017-11-23] MEDS: HYDROMORPHONE HCL INJ/PF 2 MG/ML AMPULE IV PRN ×6 (02:18→22:58)
[2017-11-23 05:28] LABS: HEMATOCRIT 27.4 % (36.0-47.0); HEMOGLOBIN 8.6 g/dL (12.0-15.5); MEAN CORPUSCULAR HEMOGLOBIN 26.5 pg (27.0-33.4); MEAN CORPUSCULAR HGB CONC 31.4 g/dL (32.0-36.0); MEAN CORPUSCULAR VOLUME 84 fl (80-97); PLATELET COUNT 319 10^3/uL (150-450); RED BLOOD COUNT 3.26 10^6/uL (3.72-5.28); RED CELL DISTRIBUTION WIDTH 16.9 % (11.5-14.0); WHITE BLOOD COUNT 4.1 10^3/uL (4.0-10.5)
[2017-11-23 05:46] LABS: ANION GAP 14 (5-19); BLOOD UREA NITROGEN 8 mg/dL (7-20); CARBON DIOXIDE 22 mmol/L (22-30); CHLORIDE 109 mmol/L (98-107); GLUCOSE 117 mg/dL (75-110); POTASSIUM 4.7 mmol/L (3.6-5.0); SODIUM 145.3 mmol/L (137-145)
[2017-11-23] MEDS: PHENAZOPYRIDINE HCL 100 MG TABLET PO SCH ×3 (06:42→21:44)
[2017-11-23] MEDS: LANSOPRAZOLE 15 MG TAB.RAP.DR PO SCH (06:43)
[2017-11-23] MEDS: ALPRAZOLAM 0.5 MG TABLET PO SCH ×2 (09:24→21:38)
[2017-11-23] MEDS: METOPROLOL TARTRATE 50 MG TABLET PO SCH ×2 (09:25→21:40)
[2017-11-23] MEDS: DEXAMETHASONE SOD PHOSPHATE INJ 4 MG/1 ML VIAL IV SCH ×2 (09:26→21:42)
[2017-11-23] MEDS: HYDROXYCHLOROQUINE SULFATE 200 MG TABLET PO SCH (09:26)
[2017-11-23] MEDS: CLONIDINE HCL 0.2 MG TABLET PO SCH ×2 (09:26→21:41)
[2017-11-23] MEDS: MYCOPHENOLATE 200 MG/ML PO SCH ×2 (09:26→21:45)
[2017-11-23] MEDS: LEVETIRACETAM 500 MG/NACL-ISO 500 MG/100 ML RTUPB IV SCH ×2 (09:27→21:45)
[2017-11-23] MEDS: NYSTATIN TOPICAL POWDER 15 GM TP SCH (09:27)
[2017-11-23] MEDS: FONDAPARINUX SODIUM INJ 7.5 MG/0.6 ML DISP.SYRIN SUBCUT SCH (09:31)
[2017-11-23] MEDS: DIPHENHYDRAMINE HCL 50 MG/ML VIAL IV PRN ×2 (09:40→21:42)
[2017-11-23] MEDS: TIZANIDINE HCL 4 MG TABLET PO PRN (09:41)
[2017-11-23] MEDS ORDERED: NYSTATIN CREAM 15 GM TOP PRN (14:45)
[2017-11-23] MEDS ORDERED: NYSTATIN TOPICAL POWDER 15 GM TOP PRN (14:45)
--- NOTE | 2017-11-23 14:49 | PDOC PROGRESS REPORT ---
Subjective Progress Note for:: 11/23/17 Subjective:: Pt states that she is not nauseated. Pt has been able to tolerate diet. Nursing states that pt has done well. Reason For Visit: NAUSEA VOMITING DIARRHEA POSSIBLE LUPUS FLARE Physical Exam Vital Signs: Temp Pulse Resp BP Pulse Ox 99.5 F 74 20 157/120 H 97 11/23/17 11:59 11/23/17 14:00 11/23/17 11:59 11/23/17 11:59 11/23/17 11:59 Intake & Output 11/22/17 11/23/17 11/24/17 06:59 06:59 06:59 Intake Total 4074 Balance 4074 Weight 56.8 kg 57 kg General appearance: PRESENT: no acute distress, well-developed, well-nourished Head exam: PRESENT: atraumatic, normocephalic, other - cervical collar in place Eye exam: PRESENT: conjunctiva pink, EOMI Ear exam: PRESENT: normal external ear exam Mouth exam: PRESENT: moist, tongue midline Neck exam: PRESENT: other - cervical collar in place Respiratory exam: PRESENT: clear to auscultation tavia. ABSENT: rales, rhonchi, wheezes Cardiovascular exam: PRESENT: RRR. ABSENT: diastolic murmur, rubs, systolic murmur Pulses: PRESENT: normal dorsalis pedis pul Vascular exam: PRESENT: normal capillary refill GI/Abdominal exam: PRESENT: normal bowel sounds, soft. ABSENT: distended, guarding, mass, organolmegaly, rebound, tenderness Rectal exam: PRESENT: deferred Extremities exam: PRESENT: full ROM. ABSENT: calf tenderness, clubbing, pedal edema Musculoskeletal exam: PRESENT: full ROM Neurological exam: PRESENT: alert, awake, oriented to person, oriented to place , oriented to time, oriented to situation, CN II-XII grossly intact. ABSENT: motor sensory deficit Psychiatric exam: PRESENT: appropriate affect, normal mood. ABSENT: homicidal ideation, suicidal ideation Skin exam: PRESENT: dry, intact, warm. ABSENT: cyanosis, rash Results Laboratory Results: 11/23/17 04:18 11/23/17 04:18 11/23/17 11/23/17 04:18 04:18 WBC 4.1 RBC 3.26 L Hgb 8.6 L Hct 27.4 L MCV 84 MCH 26.5 L MCHC 31.4 L RDW 16.9 H Plt Count 319 Sodium 145.3 H Potassium 4.7 Chloride 109 H Carbon Dioxide 22 Anion Gap 14 BUN 8 Creatinine 0.46 L Est GFR ( Amer) > 60 Est GFR (Non-Af Amer) > 60 Glucose 117 H Calcium 9.0 11/22/17 05:56 Clean Catch Midstream Urine Culture - Final Urogenital Cris 11/21/17 11/22/17 11/22/17 21:00 03:35 10:45 Troponin I < 0.012 < 0.012 < 0.012 Assessment & Plan - Diagnosis (1) Chronic, continuous use of opioids Is this a current diagnosis for this admission?: Yes Plan: Will continue current treatment plan. (2) Odontoid fracture Is this a current diagnosis for this admission?: Yes Plan: Supportive care. (3) Diarrhea Qualifiers: Diarrhea type: unspecified type Qualified Code(s): R19.7 - Diarrhea, unspecified Is this a current diagnosis for this admission?: Yes Plan: c.diff neg. Will continue to monitor. (4) Headache Qualifiers: Headache type: unspecified Headache chronicity pattern: chronic headache Intractability: not intractable Qualified Code(s): R51 - Headache Is this a current diagnosis for this admission?: Yes Plan: Resolved. (5) Hypertension Qualifiers: Is this a current diagnosis for this admission?: Yes Plan: will restart Clonidine (6) Nausea & vomiting Qualifiers: Vomiting type: unspecified Vomiting Intractability: intractable Qualified Code(s): R11.2 - Nausea with vomiting, unspecified Is this a current diagnosis for this admission?: Yes Plan: Resolved. Pt tolerating diet. To (7) SLE (systemic lupus erythematosus) Qualifiers: Systemic lupus erythematosus type: unspecified Systemic lupus erythematosus organ involvement: unspecified Qualified Code(s): M32.9 - Systemic lupus erythematosus, unspecified Is this a current diagnosis for this admission?: Yes Plan: Will continue steroids. (8) UTI (urinary tract infection) Qualifiers: Urinary tract infection type: acute cystitis Hematuria presence: without hematuria Qualified Code(s): N30.00 - Acute cystitis without hematuria Is this a current diagnosis for this admission?: Yes Plan: Ruled out: No evidence of urinary tract infection. (9) Hypernatremia Is this a current diagnosis for this admission?: Yes Plan: Will give One Liter of D5W. Will check BMP. (10) Dehydration Is this a current diagnosis for this admission?: Yes Plan: Will give additional IVFs. - Time Time Spent with patient: 15-24 minutes
[2017-11-23] MEDS: ONDANSETRON HCL INJ/PF 4 MG/2 ML SDV IV PRN (15:02)
[2017-11-23] MEDS ORDERED: DEXTROSE 5%-WATER 1000 ML 1,000 ML IV ONE (16:00)
[2017-11-23] MEDS: ZOLPIDEM TARTRATE 5 MG TABLET PO SCH (21:38)
[2017-11-23] MEDS: CYCLOBENZAPRINE HCL 10 MG TABLET PO SCH (21:41)
[2017-11-23] MEDS ORDERED: (PENDING PHARMACY ID) (Clonidine Hcl [Catapres 0.3 Mg Tablet] 0.3 MG) PO SCH (22:00)
[2017-11-23] MEDS ORDERED: CLONIDINE HCL 0.1 MG TABLET PO SCH (22:00)
[2017-11-24] MEDS: PROMETHAZINE HCL INJ 25 MG/1 ML VIAL IV PRN ×2 (03:51→12:00)
[2017-11-24] MEDS: HYDROMORPHONE HCL INJ/PF 2 MG/ML AMPULE IV PRN ×3 (03:51→11:59)
[2017-11-24] MEDS: LANSOPRAZOLE 15 MG TAB.RAP.DR PO SCH (05:58)
[2017-11-24] MEDS: PHENAZOPYRIDINE HCL 100 MG TABLET PO SCH ×2 (05:59→13:18)
[2017-11-24 07:07] LABS: ANION GAP 15 (5-19); BLOOD UREA NITROGEN 6 mg/dL (7-20); CALCIUM 8.8 mg/dL (8.4-10.2); CARBON DIOXIDE 23 mmol/L (22-30); CHLORIDE 105 mmol/L (98-107); GLUCOSE 109 mg/dL (75-110); POTASSIUM 4.6 mmol/L (3.6-5.0); SODIUM 143.3 mmol/L (137-145)
[2017-11-24 07:16] LABS: HEMATOCRIT 27.8 % (36.0-47.0); HEMOGLOBIN 8.8 g/dL (12.0-15.5); MEAN CORPUSCULAR HEMOGLOBIN 26.5 pg (27.0-33.4); MEAN CORPUSCULAR HGB CONC 31.7 g/dL (32.0-36.0); MEAN CORPUSCULAR VOLUME 84 fl (80-97); PLATELET COUNT 331 10^3/uL (150-450); RED BLOOD COUNT 3.32 10^6/uL (3.72-5.28); RED CELL DISTRIBUTION WIDTH 16.9 % (11.5-14.0); WHITE BLOOD COUNT 4.2 10^3/uL (4.0-10.5)
[2017-11-24] MEDS: ONDANSETRON HCL INJ/PF 4 MG/2 ML SDV IV PRN (08:06)
[2017-11-24] MEDS: ALPRAZOLAM 0.5 MG TABLET PO SCH (09:32)
[2017-11-24] MEDS: FONDAPARINUX SODIUM INJ 7.5 MG/0.6 ML DISP.SYRIN SUBCUT SCH (09:32)
[2017-11-24] MEDS: LEVETIRACETAM 500 MG/NACL-ISO 500 MG/100 ML RTUPB IV SCH (09:33)
[2017-11-24] MEDS: METOPROLOL TARTRATE 50 MG TABLET PO SCH (09:33)
[2017-11-24] MEDS: DIPHENHYDRAMINE HCL 50 MG/ML VIAL IV PRN (09:35)
[2017-11-24] MEDS: CLONIDINE HCL 0.2 MG TABLET PO SCH (09:35)
[2017-11-24] MEDS: DEXAMETHASONE SOD PHOSPHATE INJ 4 MG/1 ML VIAL IV SCH (09:35)
[2017-11-24] MEDS: HYDROXYCHLOROQUINE SULFATE 200 MG TABLET PO SCH (09:36)
[2017-11-24] MEDS: MYCOPHENOLATE 200 MG/ML PO SCH (09:37)
[2017-11-24] MEDS: TIZANIDINE HCL 4 MG TABLET PO PRN (09:38)
--- NOTE | 2017-11-24 11:31 | PDOC DISCHARGE SUMMARY ---
General - Admit/Disc Date/PCP Admission Date/Primary Care Provider: 11/21/17 18:19 ZAIRA ELI MD Discharge Date: 11/24/17 - Discharge Diagnosis (1) Chronic, continuous use of opioids Is this a current diagnosis for this admission?: Yes Summary: Patient will continue with home medications. (2) Odontoid fracture Is this a current diagnosis for this admission?: Yes Summary: Per outpatient physician. (3) Diarrhea Is this a current diagnosis for this admission?: Yes Summary: C.diff neg. Resolved (4) Headache Is this a current diagnosis for this admission?: Yes Summary: Resolved. (5) Hypertension Is this a current diagnosis for this admission?: Yes Summary: Patient will continue home medications. Patient's blood pressure has been elevated here however concerned with adjusted medication due to the number of medications patient takes that could affect blood pressure. Recommend that patient follow-up with outpatient physician within 1 week. (6) Nausea & vomiting Is this a current diagnosis for this admission?: Yes Summary: Resolved. Patient's been placed on bland diet and told to continue bland diet. (7) SLE (systemic lupus erythematosus) Is this a current diagnosis for this admission?: Yes Summary: Patient was admitted for concern for SLE flare however unsure as to what they are considering as flare. Patient was complaining of nausea only. Patient has been placed on steroids and patient will be placed back on her home dose of steroids. Do not feel at this time patient needs extended course of higher dose steroids. (8) UTI (urinary tract infection) Is this a current diagnosis for this admission?: Yes Summary: Ruled out: Patient did not demonstrate evidence of urine urinary tract infection by urine culture (9) Hypernatremia Is this a current diagnosis for this admission?: Yes Summary: Contrary to dehydration: Resolved. (10) Dehydration Is this a current diagnosis for this admission?: Yes Summary: Patient was given IV fluids. Dehydration has resolved. - Additional Information Resuscitation Status: Full Code Discharge Diet: Other (Comments) - Cardiac bland diet Discharge Activity: Activity As Tolerated Home Medications: Alprazolam [Xanax] 1 mg PO Q12 10/23/17 Clonidine HCl [Catapres 0.3 mg Tablet] 0.3 mg PO Q12 10/23/17 Cyclobenzaprine HCl [Flexeril 10 mg Tablet] 10 mg PO QHS 10/23/17 Ondansetron [Zofran Odt] 8 mg PO QIDP PRN 10/23/17 Tizanidine HCl [Zanaflex] 6 mg PO Q8HP PRN 10/23/17 Zolpidem Tartrate [Ambien] 10 mg PO QHS 10/23/17 Metoprolol Tartrate [Lopressor 50 mg Tablet] 50 mg PO Q12 #60 tablet 10/27/17 Butalb/Acetaminophen/Caffeine [Fioricet (50-325-40 mg) Tablet] 1 tab PO Q4HP PRN 11/21/17 Diphenhydramine HCl [Benadryl] 25 mg PO DAILYP PRN 11/21/17 Fondaparinux Sodium [Arixtra Inj 7.5 mg/0.6 ml Disp. Syrin] 7.5 mg SUBCUT DAILY 11/21/17 Hydroxychloroquine Sulfate [Plaquenil 200 mg Tablet] 200 mg PO DAILY 11/21/17 Lansoprazole [Prevacid] 15 mg PO DAILY 11/21/17 Nystatin/Dexameth/Diphen [Magic Mouthwash] 5 ml PO DAILYP PRN 11/21/17 Oxycodone HCl/Acetaminophen [Percocet 10-325 mg Tablet] 1 each PO Q8HP PRN 11/21 Prednisone 5 mg PO DAILY 11/21/17 Albuterol Sulfate [Ventolin HFA MDI 18 GM] 2 puff IH Q4HP PRN 11/22/17 Fluticasone/Salmeterol [Advair 250-50 Diskus 14 Dose/Diskus] 1 puff IH Q12 11/22 Levetiracetam 10 ml PO BID 11/22/17 Mycophenolate Mofetil 7.5 ml PO Q12 11/22/17 Nystatin [Mycostatin Cream 15 gm] 1 applic TOP DAILYP PRN 11/22/17 Nystatin [Nyata] 1 applic TOP DAILYP PRN 11/22/17 Promethazine HCl [Phenergan 25 mg Tablet] 1 tab PO Q6H PRN 11/22/17 History of Present Illness Patient complains of: Nausea vomiting weakness and diarrhea History of Present Illness: JOSE DUMONT is a 22 year old female to the hospital with complaint of nausea vomiting weakness and diarrhea. Patient was thought to have had a lupus flare however patient did not demonstrate significant sequelae to continue with that current diagnosis. Patient has been admitted here multiple times with complaint of nausea vomiting and weakness. Patient has been placed on a bland diet and tolerating diet well. Patient's blood pressure has been noted to be elevated however no changes to medications were made due to patient's heavy use of opioids benzos and muscle relaxers. Patient will need to follow-up with PCP in regards to blood pressure. Patient will resume home dose of steroids. Pt's C.diff negative. Hospital Course Hospital Course: JOSE DUMONT is a 22 year old female to the hospital with complaint of nausea vomiting weakness and diarrhea. Patient was thought to have had a lupus flare however patient did not demonstrate significant sequelae to continue with that current diagnosis. Patient has been admitted here multiple times with complaint of nausea vomiting and weakness. Patient has been placed on a bland diet and tolerating diet well. Patient's blood pressure has been noted to be elevated however no changes to medications were made due to patient's heavy use of opioids benzos and muscle relaxers. Patient will need to follow-up with PCP in regards to blood pressure. Patient will resume home dose of steroids. Pt's C.diff negative. Physical Exam Vital Signs: Temp Pulse Resp BP Pulse Ox 98.0 F 81 16 143/111 H 98 11/24/17 10:00 11/24/17 10:00 11/24/17 10:00 11/24/17 10:00 11/24/17 10:00 Intake & Output 11/23/17 11/24/17 11/25/17 06:59 06:59 06:59 Intake Total 4074 3548 Output Total 2500 Balance 4074 1048 Weight 57 kg 55.9 kg General appearance: PRESENT: no acute distress, well-developed, well-nourished Head exam: PRESENT: atraumatic, normocephalic Eye exam: PRESENT: conjunctiva pink, EOMI. ABSENT: scleral icterus Ear exam: PRESENT: normal external ear exam Mouth exam: PRESENT: moist, tongue midline Neck exam: ABSENT: carotid bruit, JVD, lymphadenopathy, thyromegaly Respiratory exam: PRESENT: clear to auscultation tavia. ABSENT: rales, rhonchi, wheezes Cardiovascular exam: PRESENT: RRR. ABSENT: diastolic murmur, rubs, systolic murmur Pulses: PRESENT: normal dorsalis pedis pul Vascular exam: PRESENT: normal capillary refill GI/Abdominal exam: PRESENT: normal bowel sounds, soft. ABSENT: distended, guarding, mass, organolmegaly, rebound, tenderness Rectal exam: PRESENT: deferred Extremities exam: PRESENT: full ROM. ABSENT: calf tenderness, clubbing, pedal edema Neurological exam: PRESENT: alert, awake, oriented to person, oriented to place , oriented to time, oriented to situation, CN II-XII grossly intact. ABSENT: motor sensory deficit Psychiatric exam: PRESENT: appropriate affect, normal mood. ABSENT: homicidal ideation, suicidal ideation Skin exam: PRESENT: dry, intact, warm. ABSENT: cyanosis, rash Results Laboratory Results: 11/24/17 04:07 11/24/17 04:07 11/24/17 11/24/17 04:07 04:07 WBC 4.2 RBC 3.32 L Hgb 8.8 L Hct 27.8 L MCV 84 MCH 26.5 L MCHC 31.7 L RDW 16.9 H Plt Count 331 Sodium 143.3 Potassium 4.6 Chloride 105 Carbon Dioxide 23 Anion Gap 15 BUN 6 L Creatinine 0.42 L Est GFR ( Amer) > 60 Est GFR (Non-Af Amer) > 60 Glucose 109 Calcium 8.8 11/22/17 21:10 Stool - Stool - Final 11/22/17 05:56 Clean Catch Midstream Urine Culture - Final Urogenital Cris 11/21/17 11/22/17 11/22/17 21:00 03:35 10:45 Troponin I < 0.012 < 0.012 < 0.012 Qualifiers - * PATEINT BEING DISCHARGED WITH ANY OF THE FOLLOWING DIAGNOSIS?: No Plan Time Spent: Greater than 30 Minutes
[2017-11-24 13:27] VITALS: BP 165/118
== END 2017-11-24 14:17 | disposition home or self-care (01) | DRG 546 ==
LOC: ER 11:33 → EH 18:19 → 4N 11-22 06:15
PROVIDERS: ADMIT Internal Medicine; ATTEND Internal Medicine
DX: M32.9 Systemic lupus erythematosus, unspecified (principal); D68.61 Antiphospholipid syndrome; E87.0 Hyperosmolality and hypernatremia; S12.110S Anterior displaced Type II dens fracture, sequela; B37.3 Candidiasis of vulva and vagina; G89.29 Other chronic pain; R19.7 Diarrhea, unspecified; R51 Headache; I10 Essential (primary) hypertension; R11.2 Nausea with vomiting, unspecified; G40.909 Epilepsy, unspecified, not intractable, without status epilepticus; K21.9 Gastro-esophageal reflux disease without esophagitis; E86.0 Dehydration; F41.1 Generalized anxiety disorder; Z79.01 Long term (current) use of anticoagulants; Z97.8 Presence of other specified devices; Z79.52 Long term (current) use of systemic steroids; Z79.899 Other long term (current) drug therapy; Z79.891 Long term (current) use of opiate analgesic; Z86.718 Personal history of other venous thrombosis and embolism; Z86.711 Personal history of pulmonary embolism; Z88.6 Allergy status to analgesic agent; Z88.2 Allergy status to sulfonamides; Z88.8 Allergy status to other drugs, medicaments and biological substances; Z91.013 Allergy to seafood
CPT/HCPCS: 36415; 36591; 80048; 80053; 80307; 81001; 83690; 84484; 84703; 85025; 85027; 85652; 85730; 87040; 87045; 87077; 87086; 87205; 87210; 87491; 87493; 87591; 96374; 96375; 96376; 99285; J1100; J1170; J1200; J1652; J1953; J2405; J2550; J2930; J3490; J7060; J7120

== ENCOUNTER 2017-12-01 05:11 | Emergency (ER) | payer MEDICARE, MEDICAID ==
--- NOTE | 2017-12-01 05:51 | ER Document Report ---
ED General - General Chief Complaint: Nausea/Vomiting Stated Complaint: ALL OVER BODY PAIN Time Seen by Provider: 12/01/17 05:36 Mode of Arrival: Ambulatory Information source: Patient TRAVEL OUTSIDE OF THE [place] IN LAST 30 DAYS: No - HPI Notes: Patient is a 22-year-old with history of lupus, seizure disorder, recent odontoid fracture related to seizure, opioid abuse, with recurrent episodes of nausea/vomiting/diarrhea/weakness presents with another episode of nausea/ vomiting/diarrhea/weakness that came on early this morning. The patient reports minimal cough. The patient denies any hematemesis or bright red blood per rectum. The patient reports recent antibiotics for UTI, but there was no evidence for UTI on further testing according to the patient and the antibiotics were stopped. The patient had a recent admission with normal workup otherwise and was sent home. During her admission she states she was on Dilaudid 2 mg IV every 4 hours, and was discharged home on Percocet 10's every 6 hours. She states that despite her Zofran, she is having nausea and is unable to keep down her Percocet. The patient reports she was unable to sleep last night. Patient denies any fever. - Related Data Allergies/Adverse Reactions: shellfish derived Allergy (Severe, Verified 11/21/17 11:36) Anaphylaxis ketorolac tromethamine [From Toradol] Allergy (Intermediate, Verified 11/21/17 11:36) Hives morphine [Morphine] Allergy (Intermediate, Verified 11/21/17 11:36) Hives sulfamethoxazole [From Bactrim] Allergy (Unknown, Verified 11/21/17 11:36) Pruritis trimethoprim [From Bactrim] Allergy (Unknown, Verified 11/21/17 11:36) Pruritis belimumab [From Benlysta] Allergy (Verified 11/21/17 11:36) rash heparin Allergy (Verified 11/21/17 11:36) HIIT, No reaction with port flush Past Medical History - General Information source: Patient - Social History Smoking Status: Never Smoker Frequency of alcohol use: None Drug Abuse: None Lives with: Family Family History: None, Hypertension, Other - Lupus-mother - Past Medical History Cardiac Medical History: Reports: Hx DVT, Hx Hypertension - ON MEDS, Hx Pulmonary Embolism Denies: Hx Coronary Artery Disease, Hx Heart Attack, Hx Hypercholesterolemia Pulmonary Medical History: Reports: Hx Asthma - CHILDHOOD ASTHMA, Hx Pneumonia Denies: Hx Bronchitis, Hx COPD, Hx Tuberculosis Neurological Medical History: Reports: Hx Migraine, Hx Seizures - ON MEDS (MARCH 2017). Denies: Hx Cerebrovascular Accident Endocrine Medical History: Denies: Hx Diabetes Mellitus Type 1, Hx Diabetes Mellitus Type 2, Hx Hyperthyroidism, Hx Hypothyroidism Renal/ Medical History: Denies: Hx Peritoneal Dialysis GI Medical History: Reports: Hx Gastritis, Hx Gastroesophageal Reflux Disease, Hx Ulcer, Hx Endoscopy. Denies: Hx Cirrhosis, Hx Hepatitis Musculoskeltal Medical History: Reports Hx Arthritis - LUPUS Skin Medical History: Reports Hx Cellulitis Psychiatric Medical History: Reports: Hx Anxiety Denies: Hx Depression Infectious Medical History: Reports: Hx C-Diff, Hx MRSA. Denies: Hx Hepatitis Past Surgical History: Reports: Hx Abdominal Surgery - PEG tube, Hx Neurologic Surgery - C-SPINE Fx STABILIZATION, Other - PEG placement 2, Port-A-Cath, [facility]. Denies: Hx Hysterectomy - Immunizations Immunizations up to date: Yes Hx Diphtheria, Pertussis, Tetanus Vaccination: Yes Hx Pneumococcal Vaccination: 10/04/14 Review of Systems - Review of Systems Notes: REVIEW OF SYSTEMS: CONSTITUTIONAL : Denies fever, chills, or sweats. EENT: Denies eye, ear, throat, or mouth pain or symptoms. Denies nasal or sinus congestion or discharge. Denies throat, tongue, or mouth swelling or difficulty swallowing. CARDIOVASCULAR: Denies chest pain. Denies palpitations or racing or irregular heart beat. Denies ankle edema. RESPIRATORY: Denies shortness of breath, difficulty breathing, or wheezing. GASTROINTESTINAL: Denies abdominal pain or distention. Denies blood in vomitus, stools, or per rectum. Denies black, tarry stools. Denies constipation. GENITOURINARY: Denies difficulty urinating, painful urination, burning, frequency, blood in urine, or discharge. FEMALE GENITOURINARY: Denies vaginal bleeding, heavy or abnormal periods, irregular periods. Denies vaginal discharge or odor. MUSCULOSKELETAL: Denies back or neck pain or stiffness. Denies joint pain or swelling. SKIN: Denies rash, lesions or sores. HEMATOLOGIC : Denies easy bruising or bleeding. LYMPHATIC: Denies swollen, enlarged glands. NEUROLOGICAL: Denies confusion or altered mental status. Denies passing out or loss of consciousness. Denies dizziness or lightheadedness. Denies headache. Denies weakness or paralysis or loss of use of either side. Denies problems with gait or speech. Denies sensory loss, numbness, or tingling. PSYCHIATRIC: Denies anxiety or stress. Denies depression, suicidal ideation, or homicidal ideation. ALL OTHER SYSTEMS REVIEWED AND NEGATIVE. Dictation was performed using [employer] ([employer] voice recognition software Physical Exam - Vital signs Vitals: Temp Pulse Resp BP Pulse Ox 98.3 F 124 H 16 120/83 100 12/01/17 05:18 12/01/17 05:18 12/01/17 05:18 12/01/17 05:18 12/01/17 05:18 - Notes Notes: PHYSICAL EXAMINATION: GENERAL: Well-appearing, well-nourished and in no acute distress. HEAD: Atraumatic, normocephalic. EYES: Pupils equal round and reactive to light, extraocular movements intact, conjunctiva are normal. ENT: Nares patent, oropharynx clear without exudates. Moist mucous membranes. NECK: supple without lymphadenopathy. Patient has a [place] J collar in place for recent odontoid fracture. LUNGS: Breath sounds clear to auscultation bilaterally and equal. No wheezes rales or rhonchi. HEART: Regular rate and rhythm without murmurs. med port site left upper chest shows no evidence for infection or other abnormality. ABDOMEN: Soft, nontender, nondistended abdomen. No guarding, no rebound. No masses appreciated. Old G-tube site is well-healed. Female : deferred Musculoskeletal: Normal range of motion, no pitting or edema. No cyanosis. NEUROLOGICAL: Cranial nerves grossly intact. Normal speech, normal gait. Normal sensory, motor exams PSYCH: Normal mood, normal affect. SKIN: Warm, Dry, normal turgor, no rashes or lesions noted. Course - Re-evaluation Re-evalutation: 12/01/17 06:13 Patient had her port accessed and was given 1 L normal saline and Ativan 1 mg, Solu-Medrol 125 mg, Zofran 4 mg IV, Pepcid IV. Based upon a review of the patient, the patient has a recurrent history of presenting with similar complaints requesting narcotics. We will assess patient for possible rheumatoid arthritis flareup versus infection and will obtain urine specimen and electrolyte studies and CBC and chest x-ray. Care is turned over to Dr. Nunez at 0600. 12/01/17 06:15 - Vital Signs Vital signs: Temp Pulse Resp BP Pulse Ox 98.3 F 124 H 16 120/83 100 12/01/17 05:18 12/01/17 05:18 12/01/17 05:18 12/01/17 05:18 12/01/17 05:18 Discharge - Discharge Referrals: ZAIRA ELI MD [Primary Care Provider] - Follow up as needed
[2017-12-01] MEDS ORDERED: NORMAL SALINE 1000 ML 1,000 ML IV ONE (05:54)
[2017-12-01] MEDS ORDERED: METHYLPREDNISOLONE INJ 125 MG/2 ML SDV IV ONE (05:56)
[2017-12-01] MEDS ORDERED: LORAZEPAM INJ 2 MG/1 ML VIAL IV ONE (05:57)
[2017-12-01] MEDS ORDERED: ONDANSETRON HCL INJ/PF 4 MG/2 ML SDV IV ONE (05:57)
[2017-12-01] MEDS ORDERED: FAMOTIDINE INJ/PF 20 MG/2 ML SDV IV ONE (05:58)
[2017-12-01 06:40] LABS: ABSOLUTE EOSINOPHILS # (AUTO) 0.4 10^3/uL (0.0-0.6); ABSOLUTE LYMPHOCYTES (AUTO) 1.1 10^3/uL (0.5-4.7); ABSOLUTE NEUT (AUTO) 6.1 10^3/uL (1.7-8.2); BASOPHILS % (AUTO) 0.5 % (0-2); EOSINOPHILS % (AUTO) 4.2 % (0-6); HEMATOCRIT 26.7 % (36.0-47.0); HEMOGLOBIN 8.4 g/dL (12.0-15.5); LYMPHOCYTES % (AUTO) 12.7 % (13-45); MEAN CORPUSCULAR HEMOGLOBIN 25.9 pg (27.0-33.4); MEAN CORPUSCULAR HGB CONC 31.4 g/dL (32.0-36.0); MEAN CORPUSCULAR VOLUME 83 fl (80-97); MONOCYTES % (AUTO) 11.9 % (3-13); PLATELET COUNT 298 10^3/uL (150-450); RED BLOOD COUNT 3.23 10^6/uL (3.72-5.28); RED CELL DISTRIBUTION WIDTH 16.8 % (11.5-14.0); SEGMENTED NEUTROPHILS % (AUTO) 70.7 % (42-78); TOTAL CELLS COUNTED % (AUTO) 100 %; WHITE BLOOD COUNT 8.7 10^3/uL (4.0-10.5)
[2017-12-01 06:55] LABS: ALANINE AMINOTRANSFERASE 7 U/L (9-52); ALBUMIN 3.2 g/dL (3.5-5.0); ALKALINE PHOSPHATASE 128 U/L (38-126); ANION GAP 11 (5-19); ASPARTATE AMINO TRANSFERASE 13 U/L (14-36); BLOOD UREA NITROGEN 10 mg/dL (7-20); CALCIUM 7.5 mg/dL (8.4-10.2); CARBON DIOXIDE 19 mmol/L (22-30); CHLORIDE 111 mmol/L (98-107); GLUCOSE 91 mg/dL (75-110); POTASSIUM 4.1 mmol/L (3.6-5.0); SODIUM 141.4 mmol/L (137-145); TOTAL PROTEIN 7.7 g/dL (6.3-8.2)
[2017-12-01 06:56] LABS: BILIRUBIN,TOTAL < 0.1 mg/dL (0.2-1.3)
[2017-12-01 07:08] LABS: APPEARANCE,URINE SLIGHTLY-CLOUDY; BILIRUBIN,URINE NEGATIVE (NEGATIVE); COLOR,URINE YELLOW; GLUCOSE, URINE NEGATIVE (NEGATIVE); KETONES,URINE NEGATIVE (NEGATIVE); LEUKOCYTE ESTERASE,URINE LARGE (NEGATIVE); NITRITE,URINE NEGATIVE (NEGATIVE); PROTEIN,URINE NEGATIVE (NEGATIVE); URINE SPECIFIC GRAVITY 1.016; UROBILINOGEN,URINE NEGATIVE mg/dL (<2.0)
--- NOTE | 2017-12-01 07:41 | RADIOLOGY REPORT (SQ) ---
EXAM DESCRIPTION: CHEST PA/LAT COMPLETED DATE/TIME: 12/01/2017 7:25 am REASON FOR STUDY: COUGH COMPARISON: Two-view chest 10/24/2017 CT chest 05/05/2017 EXAM PARAMETERS: NUMBER OF VIEWS: two views TECHNIQUE: Digital Frontal and Lateral radiographic views of the chest acquired. RADIATION DOSE: NA LIMITATIONS: none FINDINGS: LUNGS AND PLEURA: Minimal bandlike atelectasis in the right perihilar region Lungs are otherwise well inflated and clear. No pleural effusion. No pneumothorax. MEDIASTINUM AND HILAR STRUCTURES: No masses or contour abnormalities. HEART AND VASCULAR STRUCTURES: Heart normal size. No evidence for failure. BONES: Osteoporotic. Multiple thoracic compression deformities HARDWARE: Left-sided permanent central line tip superior vena cava. Surgical clips in the mid epigas trium. OTHER: No other significant finding. IMPRESSION: Minimal bandlike atelectasis right perihilar region. TECHNICAL DOCUMENTATION: JOB ID: [id number] [employer]- All Rights Reserved Reading location - IP/workstation name: [email or web address]
[2017-12-01 10:04] VITALS: BP 102/79
== END 2017-12-01 10:36 | disposition home or self-care (01) ==
LOC: ER 05:11
DX: G89.4 Chronic pain syndrome (principal); F11.20 Opioid dependence, uncomplicated; R11.2 Nausea with vomiting, unspecified; M79.1 Myalgia; G40.909 Epilepsy, unspecified, not intractable, without status epilepticus; R19.7 Diarrhea, unspecified; R53.1 Weakness; R05 Cough
CPT/HCPCS: 36591; 99284; 96361; 96374; 96375; 36415; 83735; 85025; 81025; 80053; 81001; 71046; J2930; J2060; J2405; J7030; S0028; J1642

== ENCOUNTER 2017-12-14 13:34 | Outpatient (CLI) | payer MEDICARE, MEDICAID ==
[~2017-12-14 13:34] MED LIST changes: +FERRIC CARBOXYMALTOSE 750 MG in NORMAL SALINE 250 ML IV PRN; +NORMAL SALINE 250 ML IV PRN; -RINGERS SOLUTION,LACTATED 1,000 ML IV PRN
[2017-12-14 14:11] VITALS: BP 132/96
== END 2017-12-14 15:04 | disposition home or self-care (01) ==
LOC: II 13:34 → 5TH 13:38 → II 15:04
PROVIDERS: ATTEND Internal Medicine
PROC: 3E043GC Introduction of Other Therapeutic Substance into Central Vein, Percutaneous Approach (ICD-10-PCS; principal; 2017-12-14)
DX: D50.9 Iron deficiency anemia, unspecified (principal); K90.9 Intestinal malabsorption, unspecified
CPT/HCPCS: 96365; 96374; J7050; J1439

== ENCOUNTER 2018-01-06 09:55 | Outpatient (CLI) | payer MEDICARE, MEDICAID ==
[2018-01-06 10:16] VITALS: BP 103/71
== END 2018-01-06 11:00 | disposition home or self-care (01) ==
LOC: II 09:55 → 5TH 09:58 → II 11:00
PROVIDERS: ATTEND Internal Medicine
PROC: 3E043GC Introduction of Other Therapeutic Substance into Central Vein, Percutaneous Approach (ICD-10-PCS; principal; 2018-01-06)
DX: D50.9 Iron deficiency anemia, unspecified (principal); K90.9 Intestinal malabsorption, unspecified
CPT/HCPCS: 96374; J7050; J1439; 96367

== ENCOUNTER 2018-01-28 16:05 | Emergency (ER) | payer MEDICARE, MEDICAID ==
--- NOTE | 2018-01-28 16:54 | ER Document Report ---
ED Medical Screen (RME) - General Chief Complaint: Neck Pain < 24hrs old Stated Complaint: NAUSEA Time Seen by Provider: 01/28/18 16:22 Mode of Arrival: Ambulatory Information source: Patient Notes: 22-year-old female presents post seizure with complaints of neck pain. Patient notes she had an odontoid fracture recently I have greeted and performed a rapid initial assessment of this patient. A comprehensive ED assessment and evaluation of the patient, analysis of test results and completion of the medical decision making process will be conducted by additional ED providers. PHYSICAL EXAMINATION: GENERAL: Well-appearing, well-nourished and in no acute distress. HEAD: Atraumatic, normocephalic. EYES: Pupils equal round extraocular movements intact, conjunctiva are normal. ENT: Nares patent NECK: Normal range of motion LUNGS: No respiratory distress Musculoskeletal: Normal range of motion NEUROLOGICAL: Normal speech, normal gait. PSYCH: Normal mood, normal affect. SKIN: Abrasion to left cheek swelling at piercing of left lower face TRAVEL OUTSIDE OF THE [place] IN LAST 30 DAYS: No - Related Data Allergies/Adverse Reactions: shellfish derived Allergy (Severe, Verified 01/28/18 16:06) Anaphylaxis ketorolac tromethamine [From Toradol] Allergy (Intermediate, Verified 01/28/18 16:06) Hives morphine [Morphine] Allergy (Intermediate, Verified 01/28/18 16:06) Hives sulfamethoxazole [From Bactrim] Allergy (Unknown, Verified 01/28/18 16:06) Pruritis trimethoprim [From Bactrim] Allergy (Unknown, Verified 01/28/18 16:06) Pruritis belimumab [From Benlysta] Allergy (Verified 01/28/18 16:06) rash heparin Allergy (Verified 01/28/18 16:06) HIIT, No reaction with port flush Past Medical History - Social History Chew tobacco use (# tins/day): No Frequency of alcohol use: None Drug Abuse: None - Past Medical History Cardiac Medical History: Reports: Hx DVT, Hx Hypertension - ON MEDS, Hx Pulmonary Embolism Denies: Hx Coronary Artery Disease, Hx Heart Attack, Hx Hypercholesterolemia Pulmonary Medical History: Reports: Hx Asthma - CHILDHOOD ASTHMA, Hx Pneumonia Denies: Hx Bronchitis, Hx COPD, Hx Tuberculosis Neurological Medical History: Reports: Hx Migraine, Hx Seizures - ON MEDS (MARCH 2017). Denies: Hx Cerebrovascular Accident Endocrine Medical History: Denies: Hx Diabetes Mellitus Type 1, Hx Diabetes Mellitus Type 2, Hx Hyperthyroidism, Hx Hypothyroidism Renal/ Medical History: Denies: Hx Peritoneal Dialysis GI Medical History: Reports: Hx Gastritis, Hx Gastroesophageal Reflux Disease, Hx Ulcer, Hx Endoscopy. Denies: Hx Cirrhosis, Hx Hepatitis Musculoskeltal Medical History: Reports Hx Arthritis - LUPUS Skin Medical History: Reports Hx Cellulitis Psychiatric Medical History: Reports: Hx Anxiety Denies: Hx Depression Infectious Medical History: Reports: Hx C-Diff, Hx MRSA. Denies: Hx Hepatitis Past Surgical History: Reports: Hx Abdominal Surgery - PEG tube, Hx Neurologic Surgery - C-SPINE Fx STABILIZATION, Other - PEG placement 2, Port-A-Cath, odontoid fxr repair late 2016 [employer]. Denies: Hx Hysterectomy - Immunizations Immunizations up to date: Yes Hx Diphtheria, Pertussis, Tetanus Vaccination: Yes History of Influenza Vaccine for 07/2017 - 12/2017 Season: Yes Influenza Administration Date for 07/2017 - 12/2017 Season: 10/04/17 Physical Exam - Vital signs Vitals: Temp Pulse Resp BP Pulse Ox 99.1 F 127 H 20 118/85 100 01/28/18 16:12 01/28/18 16:12 01/28/18 16:12 01/28/18 16:12 01/28/18 16:12 Course - Vital Signs Vital signs: Temp Pulse Resp BP Pulse Ox 99.1 F 127 H 20 118/85 100 01/28/18 16:12 01/28/18 16:12 01/28/18 16:12 01/28/18 16:12 01/28/18 16:12 Doctor's Discharge - Discharge Referrals: BOB ELI MD [Primary Care Provider] - Follow up as needed
--- NOTE | 2018-01-28 17:18 | RADIOLOGY REPORT (SQ) ---
EXAM DESCRIPTION: CT CERVICAL SPINE WITHOUT COMPLETED DATE/TIME: 01/28/2018 4:51 pm REASON FOR STUDY: odontoid fracture in past COMPARISON: None. TECHNIQUE: Axial images acquired through the cervical spine without intravenous contrast. Images re viewed with lung, soft tissue and bone windows. Reconstructed coronal and sagittal MPR images review ed. Images stored on PACS. All CT scanners at this facility use dose modulation, iterative reconstruction, and/or weight based d osing when appropriate to reduce radiation dose to as low as reasonably achievable (ALARA). [facility]: Dose Right [facility]: CareDose [facility]: Dose Right [facility]: Teradose 4D [facility]: Smart Micropelt RADIATION DOSE: CT Rad equipment meets quality standard of care and radiation dose reduction techniq ues were employed. CTDIvol: 16.2 mGy. DLP: 347 mGy-cm. mGy. LIMITATIONS: None. FINDINGS: ALIGNMENT: Anatomic. MINERALIZATION: Normal. VERTEBRAL BODIES: No fractures or dislocation. DISCS: No significant disc disease. FACETS, LATERAL MASSES, POSTERIOR ELEMENTS: No fractures. No dislocation. No acute findings. HARDWARE: There is a long screw extending from the body of C2 through the dens, reducing a fracture o f the dens. VISUALIZED RIBS: No fractures. LUNG APICES AND SOFT TISSUES: No significant or acute findings. OTHER: No other significant finding. IMPRESSION: Internal fixation of prior odontoid fracture. No acute abnormality. TECHNICAL DOCUMENTATION: JOB ID: [id number] Quality ID # [id number]: Final reports with documentation of one or more dose reduction techniques (e.g., Au tomated exposure control, adjustment of the mA and/or kV according to patient size, use of iterative reconstruction technique) 2010 [employer]- All Rights Reserved Reading location - IP/workstation name: [email or web address]
[2018-01-28] MEDS ORDERED: HYDROMORPHONE HCL INJ/PF 2 MG/ML AMPULE IV ONE ×2 (17:39→20:37)
[2018-01-28] MEDS ORDERED: LEVETIRACETAM 1000 MG/NACL-ISO 1,000 MG/100 ML RTUPB IV ONE (17:39)
--- NOTE | 2018-01-28 17:47 | ER Document Report ---
ED General - General Chief Complaint: Neck Pain < 24hrs old Stated Complaint: NAUSEA Time Seen by Provider: 01/28/18 16:22 Mode of Arrival: Medic Information source: Patient, [facility] Records Notes: 22-year-old female with a history of lupus, seizure disorder, osteoarthritis, clotting disorder on Arixtra presents after a witnessed seizure with complaints of facial pain, neck pain. Patient states that just prior to arrival she suffered a seizure. Her mother found her in her room after she heard the patient fall. Patient admits to recent nausea and vomiting and has been unable to take her Keppra and Tegretol. She states she missed 2-3 doses because of this. Patient had a recent odontoid fracture with halo placement and removal in December 2017. TRAVEL OUTSIDE OF THE [place] IN LAST 30 DAYS: No - HPI Onset: Just prior to arrival Onset/Duration: Sudden Quality of pain: Throbbing Severity: None Pain Level: Denies Associated symptoms: Nausea, Vomiting. denies: Fever Exacerbated by: Denies Relieved by: Denies Similar symptoms previously: Yes Recently seen / treated by doctor: Yes - Related Data Allergies/Adverse Reactions: shellfish derived Allergy (Severe, Verified 01/28/18 16:06) Anaphylaxis ketorolac tromethamine [From Toradol] Allergy (Intermediate, Verified 01/28/18 16:06) Hives morphine [Morphine] Allergy (Intermediate, Verified 01/28/18 16:06) Hives sulfamethoxazole [From Bactrim] Allergy (Unknown, Verified 01/28/18 16:06) Pruritis trimethoprim [From Bactrim] Allergy (Unknown, Verified 01/28/18 16:06) Pruritis belimumab [From Benlysta] Allergy (Verified 01/28/18 16:06) rash heparin Allergy (Verified 01/28/18 16:06) HIIT, No reaction with port flush Past Medical History - General Information source: Patient - Social History Smoking Status: Never Smoker Chew tobacco use (# tins/day): No Frequency of alcohol use: None Drug Abuse: None Lives with: Family Family History: None, Hypertension, Other - Lupus-mother Patient has suicidal ideation: No Patient has homicidal ideation: No - Past Medical History Cardiac Medical History: Reports: Hx DVT, Hx Hypertension - ON MEDS, Hx Pulmonary Embolism Denies: Hx Coronary Artery Disease, Hx Heart Attack, Hx Hypercholesterolemia Pulmonary Medical History: Reports: Hx Asthma - CHILDHOOD ASTHMA, Hx Pneumonia Denies: Hx Bronchitis, Hx COPD, Hx Tuberculosis Neurological Medical History: Reports: Hx Migraine, Hx Seizures - ON MEDS (MARCH 2017). Denies: Hx Cerebrovascular Accident Endocrine Medical History: Denies: Hx Diabetes Mellitus Type 1, Hx Diabetes Mellitus Type 2, Hx Hyperthyroidism, Hx Hypothyroidism Renal/ Medical History: Denies: Hx Peritoneal Dialysis GI Medical History: Reports: Hx Gastritis, Hx Gastroesophageal Reflux Disease, Hx Ulcer, Hx Endoscopy. Denies: Hx Cirrhosis, Hx Hepatitis Musculoskeltal Medical History: Reports Hx Arthritis - LUPUS Skin Medical History: Reports Hx Cellulitis Psychiatric Medical History: Reports: Hx Anxiety Denies: Hx Depression Infectious Medical History: Reports: Hx C-Diff, Hx MRSA. Denies: Hx Hepatitis Past Surgical History: Reports: Hx Abdominal Surgery - PEG tube, Hx Neurologic Surgery - C-SPINE Fx STABILIZATION, Other - PEG placement 2, Port-A-Cath, odontoid fxr repair late 2016 [employer] [facility]. Denies: Hx Hysterectomy - Immunizations Immunizations up to date: Yes Hx Diphtheria, Pertussis, Tetanus Vaccination: Yes Hx Pneumococcal Vaccination: 10/04/14 Review of Systems - Review of Systems Notes: Patient denies fever, chills, headache, ear pain, sore throat, cough, chest pain , shortness of breath, abdominal pain, back pain, dysuria, hematuria, rash, SI/ HI. Physical Exam - Vital signs Vitals: Temp Pulse Resp BP Pulse Ox 99.1 F 127 H 20 118/85 100 01/28/18 16:12 01/28/18 16:12 01/28/18 16:12 01/28/18 16:12 01/28/18 16:12 Interpretation: Normal, Tachycardic. No: Hypertensive, Febrile - Notes Notes: PHYSICAL EXAMINATION: GENERAL: Well-appearing, well-nourished and in no acute distress. C collar in place. On backboard. GCS 15 HEAD: Abrasion over left maxilla. Abrasion left upper lip. EYES: Pupils equal round and reactive to light, extraocular movements intact, sclera anicteric, conjunctiva are normal. ENT: Nares patent, oropharynx clear without exudates. Moist mucous membranes. No hemanotympanum . No blood in nares. No dental fracture. No Malocclusion. No tongue laceration. NECK: Normal range of motion, supple without lymphadenopathy. Trachea midline. Midine tenderness of the cervical spine LUNGS: Breath sounds clear to auscultation bilaterally and equal. No wheezes rales or rhonchi. HEART: Regular rate and rhythm without murmurs. Pulses intact all throughout. ABDOMEN: Soft, nontender, nondistended abdomen. No guarding, no rebound. No masses appreciated. Musculoskeletal: Normal range of motion, no pitting or edema. No cyanosis. Hip non tender, stable. NEUROLOGICAL: Cranial nerves grossly intact. Normal speech, normal gait. Normal sensory, motor, and reflex exams. PSYCH: Normal mood, normal affect. SKIN: Warm, No active bleeding U/S fast exam notes no obvious free fluid but this is a nondiagnostic evaluation Course - Re-evaluation Re-evalutation: Laboratory 01/28/18 01/28/18 01/28/18 17:15 17:15 17:15 WBC 6.4 RBC 4.15 Hgb 11.9 L Hct 37.1 MCV 89 MCH 28.7 MCHC 32.1 RDW 22.5 H Plt Count 168 Seg Neutrophils % 78.1 H Lymphocytes % 14.0 Monocytes % 6.1 Eosinophils % 1.4 Basophils % 0.4 Absolute Neutrophils 5.0 Absolute Lymphocytes 0.9 Absolute Monocytes 0.4 Absolute Eosinophils 0.1 Absolute Basophils 0.0 PT 13.4 INR 0.97 Sodium 144.8 Potassium 4.6 Chloride 110 H Carbon Dioxide 16 L Anion Gap 19 BUN 5 L Creatinine 0.39 L Est GFR ( Amer) > 60 Est GFR (Non-Af Amer) > 60 Glucose 101 Calcium 7.5 L Total Bilirubin 0.3 Direct Bilirubin 0.3 Neonat Total Bilirubin Not Reportable Neonat Direct Bilirubin Not Reportable Neonat Indirect Bili Not Reportable AST 20 ALT 18 Alkaline Phosphatase 170 H Total Protein 10.9 H Albumin 4.5 Urine Color Urine Appearance Urine pH Ur Specific [address] Urine Protein Urine Glucose (UA) Urine Ketones Urine Blood Urine Nitrite Urine Bilirubin Urine Urobilinogen Ur Leukocyte Esterase Urine WBC (Auto) Urine RBC (Auto) Squamous Epi Cells Auto Urine Mucus (Auto) Urine Ascorbic Acid Urine HCG, Qual 01/28/18 19:45 WBC RBC Hgb Hct MCV MCH MCHC RDW Plt Count Seg Neutrophils % Lymphocytes % Monocytes % Eosinophils % Basophils % Absolute Neutrophils Absolute Lymphocytes Absolute Monocytes Absolute Eosinophils Absolute Basophils PT INR Sodium Potassium Chloride Carbon Dioxide Anion Gap BUN Creatinine Est GFR ( Amer) Est GFR (Non-Af Amer) Glucose Calcium Total Bilirubin Direct Bilirubin Neonat Total Bilirubin Neonat Direct Bilirubin Neonat Indirect Bili AST ALT Alkaline Phosphatase Total Protein Albumin Urine Color YELLOW Urine Appearance CLEAR Urine pH 7.[address] 1.011 Urine Protein NEGATIVE Urine Glucose (UA) NEGATIVE Urine Ketones 20 H Urine Blood SMALL H Urine Nitrite NEGATIVE Urine Bilirubin NEGATIVE Urine Urobilinogen NEGATIVE Ur Leukocyte Esterase SMALL H Urine WBC (Auto) 7 Urine RBC (Auto) 2 Squamous Epi Cells Auto <1 Urine Mucus (Auto) RARE Urine Ascorbic Acid NEGATIVE Urine HCG, Qual NEGATIVE Cervical Spine CT 01/28/18 16:22 IMPRESSION: Internal fixation of prior odontoid fracture. No acute abnormality. Head CT 01/28/18 17:38 IMPRESSION: NO ACUTE INTRACRANIAL PROCESS. NO SIGNIFICANT CHANGE FROM PRIOR STUDY. EVIDENCE OF ACUTE STROKE: NO. 01/28/18 20:38 On reevaluation patient is complaining of neck pain and nausea. She continues to be tachycardic. Additional IV fluids, Zofran and Dilaudid were administered. 01/28/18 22:02 On second reevaluation patient reports improvement of nausea and pain. She was placed in a soft collar. 01/29/18 00:00 01/29/18 00:01 22-year-old female with a history of lupus, seizure disorder, osteoarthritis, clotting disorder on Arixtra presents after a witnessed seizure with complaints of facial pain, neck pain. Patient states that just prior to arrival she suffered a seizure. Her mother found her in her room after she heard the patient fall. Patient admits to recent nausea and vomiting and has been unable to take her Keppra and Tegretol. She states she missed 2-3 doses because of this. Patient had a recent odontoid fracture with halo placement and removal in December 2017. Patient was seen by myself upon arrival. Vital signs were reviewed. On my exam patient is alert and oriented 3. Patient does not appear toxic or dehydrated. She is in no acute distress. Previous medical records and nursing notes reviewed. Significant findings include left-sided facial abrasion, left upper lip swelling. CT of the head and neck were obtained and showed no acute process. Found to have a urinary tract infection. Patient was administered IV fluids, Keppra, Dilaudid and Zofran, and Cipro during her ED course. On reevaluation patient reports improvement in her pain and nausea. She is tolerating fluids. Patient discharged home in stable condition. - Vital Signs Vital signs: Temp Pulse Resp BP Pulse Ox 99.1 F 127 H 18 129/93 H 99 01/28/18 16:12 01/28/18 16:12 01/28/18 22:01 01/28/18 22:00 01/28/18 22:01 - Laboratory Result Diagrams: 01/28/18 17:15 01/28/18 17:15 Laboratory results interpreted by me: 01/28/18 01/28/18 01/28/18 17:15 17:15 19:45 Hgb 11.9 L RDW 22.5 H Seg Neutrophils % 78.1 H Chloride 110 H Carbon Dioxide 16 L BUN 5 L Creatinine 0.39 L Calcium 7.5 L Alkaline Phosphatase 170 H Total Protein 10.9 H Urine Ketones 20 H Urine Blood SMALL H Ur Leukocyte Esterase SMALL H - Diagnostic Test Radiology reviewed: Image reviewed, Reports reviewed Discharge - Discharge Clinical Impression: Seizure disorder, Neck pain, acute, Tachycardia Fall Qualifiers: Encounter type: initial encounter Qualified Code(s): W19.XXXA - Unspecified fall, initial encounter UTI (urinary tract infection) Qualifiers: Urinary tract infection type: acute cystitis Hematuria presence: without hematuria Qualified Code(s): N30.00 - Acute cystitis without hematuria Nausea & vomiting Qualifiers: Vomiting type: unspecified Vomiting Intractability: non-intractable Qualified Code(s): R11.2 - Nausea with vomiting, unspecified Lupus (systemic lupus erythematosus) Qualifiers: Systemic lupus erythematosus type: other Systemic lupus erythematosus organ involvement: unspecified Qualified Code(s): M32.8 - Other forms of systemic lupus erythematosus Condition: Good Disposition: HOME, SELF-CARE Instructions: Nausea or Vomiting, Nonspecific ([facility]), Urinary Tract Infection ( [facility]) Prescriptions: Ciprofloxacin HCl [Cipro 500 mg Tablet] 500 mg PO BID #10 tablet Metoclopramide HCl [Reglan 10 mg Tablet] 1 - 2 tab PO ASDIR PRN #10 tablet PRN Reason: Referrals: BOB ELI MD [Primary Care Provider] - Follow up in 3-5 days
[2018-01-28 17:53] LABS: ABSOLUTE EOSINOPHILS # (AUTO) 0.1 10^3/uL (0.0-0.6); ABSOLUTE LYMPHOCYTES (AUTO) 0.9 10^3/uL (0.5-4.7); ABSOLUTE MONOCYTES (AUTO) 0.4 10^3/uL (0.1-1.4); BASOPHILS % (AUTO) 0.4 % (0-2); EOSINOPHILS % (AUTO) 1.4 % (0-6); HEMATOCRIT 37.1 % (36.0-47.0); HEMOGLOBIN 11.9 g/dL (12.0-15.5); MEAN CORPUSCULAR HEMOGLOBIN 28.7 pg (27.0-33.4); MEAN CORPUSCULAR HGB CONC 32.1 g/dL (32.0-36.0); MEAN CORPUSCULAR VOLUME 89 fl (80-97); MONOCYTES % (AUTO) 6.1 % (3-13); PLATELET COUNT 168 10^3/uL (150-450); RED BLOOD COUNT 4.15 10^6/uL (3.72-5.28); RED CELL DISTRIBUTION WIDTH 22.5 % (11.5-14.0); SEGMENTED NEUTROPHILS % (AUTO) 78.1 % (42-78); TOTAL CELLS COUNTED % (AUTO) 100 %; WHITE BLOOD COUNT 6.4 10^3/uL (4.0-10.5)
[2018-01-28 17:56] LABS: INTERNATIONAL RATION (INR) 0.97; PROTHROMBIN TIME 13.4 SEC (11.4-15.4)
[2018-01-28 18:04] LABS: ALANINE AMINOTRANSFERASE 18 U/L (9-52); ALBUMIN 4.5 g/dL (3.5-5.0); ALKALINE PHOSPHATASE 170 U/L (38-126); ASPARTATE AMINO TRANSFERASE 20 U/L (14-36); BILIRUBIN,DIRECT 0.3 mg/dL (0.0-0.4); BILIRUBIN,TOTAL 0.3 mg/dL (0.2-1.3); BLOOD UREA NITROGEN 5 mg/dL (7-20); CALCIUM 7.5 mg/dL (8.4-10.2); GLUCOSE 101 mg/dL (75-110)
[2018-01-28 18:10] LABS: TOTAL PROTEIN 10.9 g/dL (6.3-8.2)
[2018-01-28 18:18] LABS: ANION GAP 19 (5-19); CARBON DIOXIDE 16 mmol/L (22-30); CHLORIDE 110 mmol/L (98-107); POTASSIUM 4.6 mmol/L (3.6-5.0); SODIUM 144.8 mmol/L (137-145)
--- NOTE | 2018-01-28 20:23 | RADIOLOGY REPORT (SQ) ---
EXAM DESCRIPTION: CT HEAD WITHOUT COMPLETED DATE/TIME: 01/28/2018 8:14 pm REASON FOR STUDY: fall on blood thinners COMPARISON: 07/24/2017 TECHNIQUE: Axial images acquired through the brain without intravenous contrast. Images reviewed wi th bone, brain and subdural windows. Images stored on PACS. All CT scanners at this facility use dose modulation, iterative reconstruction, and/or weight based d osing when appropriate to reduce radiation dose to as low as reasonably achievable (ALARA). [facility]: Dose Right [facility]: CareDose [facility]: Dose Right [facility]: Teradose 4D [facility]: Smart [employer] RADIATION DOSE: CT Rad equipment meets quality standard of care and radiation dose reduction techniq ues were employed. CTDIvol: 53.2 mGy. DLP: 1017 mGy-cm. mGy. LIMITATIONS: None. FINDINGS: VENTRICLES: Normal size and contour. CEREBRUM: No masses. No hemorrhage. No midline shift. No evidence for acute infarction. Normal gra y/white matter differentiation. No areas of low density in the white matter. CEREBELLUM: No masses. No hemorrhage. No alteration of density. No evidence for acute infarction. EXTRAAXIAL SPACES: No fluid collections. No masses. ORBITS AND GLOBE: No intra- or extraconal masses. Normal contour of globe without masses. CALVARIUM: No fracture. PARANASAL SINUSES: No fluid or mucosal thickening. SOFT TISSUES: No mass or hematoma. OTHER: No other significant finding. IMPRESSION: NO ACUTE INTRACRANIAL PROCESS. NO SIGNIFICANT CHANGE FROM PRIOR STUDY. EVIDENCE OF ACUTE STROKE: NO. COMMENT: Quality ID # [id number]: Final reports with documentation of one or more dose reduction techniques (e.g., Automated exposure control, adjustment of the mA and/or kV according to patient size, use of iterative reconstruction technique) TECHNICAL DOCUMENTATION: JOB ID: [id number] [employer]- All Rights Reserved Reading location - IP/workstation name: [email or web address]
[2018-01-28] MEDS ORDERED: ONDANSETRON HCL INJ/PF 4 MG/2 ML SDV IV ONE (20:37)
[2018-01-28] MEDS ORDERED: NORMAL SALINE 1000 ML 1,000 ML IV ONE (20:37)
[2018-01-28 20:58] LABS: APPEARANCE,URINE CLEAR; BILIRUBIN,URINE NEGATIVE (NEGATIVE); COLOR,URINE YELLOW; GLUCOSE, URINE NEGATIVE (NEGATIVE); KETONES,URINE 20 mg/dL (NEGATIVE); LEUKOCYTE ESTERASE,URINE SMALL (NEGATIVE); NITRITE,URINE NEGATIVE (NEGATIVE); PROTEIN,URINE NEGATIVE (NEGATIVE); URINE SPECIFIC GRAVITY 1.011; UROBILINOGEN,URINE NEGATIVE mg/dL (<2.0)
[2018-01-28] MEDS ORDERED: CIPROFLOXACIN HCL 500 MG TABLET PO ONE (21:08)
[2018-01-28 22:24] VITALS: BP 129/93
== END 2018-01-28 23:05 | disposition home or self-care (01) ==
LOC: ER 16:05
DX: G40.909 Epilepsy, unspecified, not intractable, without status epilepticus (principal); N30.00 Acute cystitis without hematuria; M32.8 Other forms of systemic lupus erythematosus; R11.2 Nausea with vomiting, unspecified; R00.0 Tachycardia, unspecified; M54.2 Cervicalgia; W19.XXXA Unspecified fall, initial encounter; Y92.009 Unspecified place in unspecified non-institutional (private) residence as the place of occurrence of the external cause; I10 Essential (primary) hypertension; Z88.6 Allergy status to analgesic agent; Z88.3 Allergy status to other anti-infective agents; Z91.013 Allergy to seafood; Z86.718 Personal history of other venous thrombosis and embolism; Z86.711 Personal history of pulmonary embolism; Z86.14 Personal history of Methicillin resistant Staphylococcus aureus infection
CPT/HCPCS: 36591; 96376; 99284; 96361; 96374; 96375; 36415; 80177; 85025; 85610; 81025; 80053; 81001; 70450; 72125; L0120 ×2; A9270; J1170; J2405; J7030; J1953

== ENCOUNTER 2018-02-04 19:21 | Emergency (ER) | payer MEDICARE, MEDICAID ==
[2018-02-04] MEDS ORDERED: HYDROMORPHONE HCL INJ/PF 2 MG/ML AMPULE IV ONE ×2 (20:16→22:57)
[2018-02-04] MEDS ORDERED: METOCLOPRAMIDE HCL INJ/PF 10 MG/2 ML SDV IV ONE (20:16)
[2018-02-04] MEDS ORDERED: DIPHENHYDRAMINE HCL 50 MG/ML VIAL IV ONE (20:16)
[2018-02-04] MEDS ORDERED: LEVETIRACETAM 1000 MG/NACL-ISO 1,000 MG/100 ML RTUPB IV ONE (20:16)
--- NOTE | 2018-02-04 20:23 | ER Document Report ---
ED General - General Chief Complaint: Nausea/Vomiting Stated Complaint: NAUSEA/VOMITING Time Seen by Provider: 02/04/18 20:10 Mode of Arrival: Ambulatory Information source: Patient Notes: 22-year-old female with history of lupus, epilepsy, osteoarthritis presents with complaint of nausea, vomiting, diarrhea. Patient states that she began having diarrhea 3 days prior to arrival. She denies any black or bloody stools. Nausea and vomiting started 1 day prior to arrival. She states that she has had multiple episodes of nonbloody nonbilious emesis. She was seen by her cnmt earlier today and was told "you have low levels". Patient believes he was referring to her calcium level. She is unclear of what other low level she had. She denies any fever, chills, abdominal pain. She does describe generalized pain which she attributes to her lupus flare. 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 Patient was recently seen by myself after a seizure and found to have urinary tract infection which she was placed antibiotics for but she states that she has not taking them and is still experiencing dysuria. TRAVEL OUTSIDE OF THE [place] IN LAST 30 DAYS: No - HPI Onset: Yesterday Onset/Duration: Gradual Quality of pain: Achy Severity: Mild Associated symptoms: Diarrhea, Nausea, Vomiting Exacerbated by: Denies Relieved by: Denies Similar symptoms previously: Yes Recently seen / treated by doctor: Yes - Related Data Allergies/Adverse Reactions: shellfish derived Allergy (Severe, Verified 01/28/18 16:06) Anaphylaxis ketorolac tromethamine [From Toradol] Allergy (Intermediate, Verified 01/28/18 16:06) Hives morphine [Morphine] Allergy (Intermediate, Verified 01/28/18 16:06) Hives sulfamethoxazole [From Bactrim] Allergy (Unknown, Verified 01/28/18 16:06) Pruritis trimethoprim [From Bactrim] Allergy (Unknown, Verified 01/28/18 16:06) Pruritis belimumab [From Benlysta] Allergy (Verified 01/28/18 16:06) rash Past Medical History - General Information source: Patient - Social History Smoking Status: Never Smoker Chew tobacco use (# tins/day): No Frequency of alcohol use: None Drug Abuse: None Lives with: Family Family History: None, Hypertension, Other - Lupus-mother Patient has suicidal ideation: No Patient has homicidal ideation: No - Past Medical History Cardiac Medical History: Reports: Hx DVT, Hx Hypertension - ON MEDS, Hx Pulmonary Embolism Denies: Hx Coronary Artery Disease, Hx Heart Attack, Hx Hypercholesterolemia Pulmonary Medical History: Reports: Hx Asthma - CHILDHOOD ASTHMA, Hx Pneumonia Denies: Hx Bronchitis, Hx COPD, Hx Tuberculosis Neurological Medical History: Reports: Hx Migraine, Hx Seizures - ON MEDS (MARCH 2017). Denies: Hx Cerebrovascular Accident Endocrine Medical History: Denies: Hx Diabetes Mellitus Type 1, Hx Diabetes Mellitus Type 2, Hx Hyperthyroidism, Hx Hypothyroidism Renal/ Medical History: Denies: Hx Peritoneal Dialysis GI Medical History: Reports: Hx Gastritis, Hx Gastroesophageal Reflux Disease, Hx Ulcer, Hx Endoscopy. Denies: Hx Cirrhosis, Hx Hepatitis Musculoskeltal Medical History: Reports Hx Arthritis - LUPUS Skin Medical History: Reports Hx Cellulitis Psychiatric Medical History: Reports: Hx Anxiety Denies: Hx Depression Infectious Medical History: Reports: Hx C-Diff, Hx MRSA. Denies: Hx Hepatitis Past Surgical History: Reports: Hx Abdominal Surgery - PEG tube, Hx Neurologic Surgery - C-SPINE Fx STABILIZATION, Other - PEG placement 2, Port-A-Cath, odontoid fxr repair late 2016 [employer]. Denies: Hx Hysterectomy - Immunizations Immunizations up to date: Yes Hx Diphtheria, Pertussis, Tetanus Vaccination: Yes Hx Pneumococcal Vaccination: 10/04/14 Review of Systems - Review of Systems Notes: Patient denies fever, chills, headache, ear pain, sore throat, cough, chest pain , shortness of breath, abdominal pain, back pain, hematuria, rash, SI/HI. Physical Exam - Vital signs Vitals: Temp Pulse Resp BP Pulse Ox 98.8 F 117 H 20 130/98 H 99 02/04/18 19:39 02/04/18 19:39 02/04/18 19:39 02/04/18 19:39 02/04/18 19:39 Interpretation: Normal, Tachycardic - Notes Notes: PHYSICAL EXAMINATION: GENERAL: Well-appearing, well-nourished and in no acute distress. HEAD: Atraumatic, normocephalic. EYES: Pupils equal round and reactive to light, extraocular movements intact, conjunctiva are normal. ENT: Nares patent, oropharynx clear without exudates. Moist mucous membranes. NECK: Normal range of motion, supple without lymphadenopathy LUNGS: Breath sounds clear to auscultation bilaterally and equal. No wheezes rales or rhonchi. HEART: Tachycardic, regular rhythm without murmurs ABDOMEN: Soft, nontender, nondistended abdomen. No guarding, no rebound. No masses appreciated. Female : deferred Musculoskeletal: Normal range of motion, no pitting or edema. No cyanosis. NEUROLOGICAL: Cranial nerves grossly intact. Normal speech, normal gait. Normal sensory, motor exams PSYCH: Normal mood, normal affect. SKIN: Warm, Dry, normal turgor, no rashes or lesions noted. Course - Re-evaluation Re-evalutation: Laboratory 02/04/18 02/04/18 02/04/18 21:00 21:00 21:00 WBC 4.7 RBC 4.03 Hgb 11.5 L Hct 35.7 L MCV 89 MCH 28.6 MCHC 32.2 RDW 22.2 H Plt Count 216 Seg Neutrophils % 59.8 Lymphocytes % 23.3 Monocytes % 14.4 H Eosinophils % 1.6 Basophils % 0.9 Absolute Neutrophils 2.8 Absolute Lymphocytes 1.1 Absolute Monocytes 0.7 Absolute Eosinophils 0.1 Absolute Basophils 0.0 Sodium 142.7 Potassium 4.1 Chloride 109 H Carbon Dioxide 17 L Anion Gap 17 BUN 7 Creatinine 0.31 L Est GFR ( Amer) > 60 Est GFR (Non-Af Amer) > 60 Glucose 105 Calcium 6.8 L* Total Bilirubin 0.2 Direct Bilirubin 0.2 Neonat Total Bilirubin Not Reportable Neonat Direct Bilirubin Not Reportable Neonat Indirect Bili Not Reportable AST 22 ALT 18 Alkaline Phosphatase 153 H Total Protein 10.3 H Albumin 4.1 Urine Color YELLOW Urine Appearance CLEAR Urine pH 7.0 Ur Specific [place] 1.013 Urine Protein NEGATIVE Urine Glucose (UA) NEGATIVE Urine Ketones NEGATIVE Urine Blood NEGATIVE Urine Nitrite NEGATIVE Urine Bilirubin NEGATIVE Urine Urobilinogen NEGATIVE Ur Leukocyte Esterase MODERATE H Urine WBC (Auto) 10 Urine RBC (Auto) 9 Squamous Epi Cells Auto 1 Urine Ascorbic Acid NEGATIVE Urine HCG, Qual NEGATIVE 02/04/18 23:34 22-year-old female with history of lupus, epilepsy, osteoarthritis presents with complaint of nausea, vomiting, diarrhea. Patient states that she began having diarrhea 3 days prior to arrival. She denies any black or bloody stools. Nausea and vomiting started 1 day prior to arrival. She states that she has had multiple episodes of nonbloody nonbilious emesis. She was seen by her cnmt earlier today and was told "you have low levels". Patient believes he was referring to her calcium level. Vital signs were reviewed upon arrival. Patient is tachycardic, hypertensive and not hypoxic. Patient does not appear toxic or dehydrated. They are in no acute distress. Previous medical records and nursing notes reviewed. Significant findings include a calcium of 6.4 and a urinalysis consistent with urinary tract infection. Patient was diagnosed with this on her last visit and provided antibiotics which she states she has not taken. 02/04/18 23:35 Spoke to hospitalist regarding admission for hypocalcemia. He recommends ionized calcium level. 02/04/18 23:36 Patient received IV fluids, Keppra, clonidine, Dilaudid, Reglan, Benadryl, calcium and Rocephin during her ED course. 02/04/18 23:44 02/05/18 00:12 On reevaluation patient states pain and nausea have resolved. She is tolerating p.o. Hospitalist consulted and does not feel patient needs admission at this time and recommend calcium carbonate supplementation. Patient is comfortable with discharge home. She has the prescription I wrote her last week for Cipro for her urinary tract infection. She has Zofran at home as well. Patient provided the opportunity to ask questions, and express concerns. Discharge instructions discussed. Patient is agreeable with discharge home. Return indications explained and discussed with the patient who displays understanding. Patient encouraged to return to the emergency department immediately with any concerns. 02/06/18 12:29 - Vital Signs Vital signs: Temp Pulse Resp BP Pulse Ox 98.8 F 117 H 23 H 132/100 H 100 02/04/18 19:39 02/04/18 19:39 02/05/18 00:57 02/05/18 00:57 02/05/18 00:57 - Laboratory Result Diagrams: 02/04/18 21:00 02/04/18 21:00 Laboratory results interpreted by me: 02/04/18 02/04/18 02/04/18 21:00 21:00 21:00 Hgb 11.5 L Hct 35.7 L RDW 22.2 H Monocytes % 14.4 H Chloride 109 H Carbon Dioxide 17 L Creatinine 0.31 L Calcium 6.8 L* Ionized Calcium Yogi Alkaline Phosphatase 153 H Total Protein 10.3 H Ur Leukocyte Esterase MODERATE H 02/04/18 23:50 Hgb Hct RDW Monocytes % Chloride Carbon Dioxide Creatinine Calcium Ionized Calcium Yogi 0.75 L Alkaline Phosphatase Total Protein Ur Leukocyte Esterase - EKG Interpretation by Me EKG shows normal: Sinus rhythm Rate: Tachycardia Rhythm: NSR When compared to previous EKG there are: No significant change Discharge - Discharge Clinical Impression: Tachycardia, Seizure disorder, Hypocalcemia UTI (urinary tract infection) Qualifiers: Urinary tract infection type: site unspecified Hematuria presence: without hematuria Qualified Code(s): N39.0 - Urinary tract infection, site not specified Lupus (systemic lupus erythematosus) Qualifiers: Systemic lupus erythematosus type: unspecified Systemic lupus erythematosus organ involvement: unspecified Qualified Code(s): M32.9 - Systemic lupus erythematosus, unspecified Vomiting Qualifiers: Vomiting type: unspecified Vomiting Intractability: non-intractable Nausea presence: with nausea Qualified Code(s): R11.2 - Nausea with vomiting, unspecified Condition: Good Disposition: HOME, SELF-CARE Instructions: Antinausea Medication ([facility]), Urinary Tract Infection ([facility]) Additional Instructions: Your laboratory testing showed that you have a low calcium level. Supplementation has been provided for you. Please take the antibiotics i prescribed to you last week for your UTI. Follow up with your physician tomorrow for further care or return to the ED IMMEDIATELY if symptoms worsen or new concerns occur. If you cannot afford to follow up with your primary care physician a list of low cost clinics have been provided at the end of your discharge papers as well. Prescriptions: Calcium Carbonate [Calcium Carbonate 260 mg Chewable Tablet] 260 mg PO DAILY # 10 tab.chew Cephalexin Monohydrate [Keflex 125 mg/5 ml Susp] 500 mg PO BID #200 ml Ciprofloxacin HCl [Cipro 500 mg Tablet] 500 mg PO BID #10 tablet Referrals: BOB ELI MD [Primary Care Provider] - Follow up as needed
[2018-02-04] MEDS ORDERED: NORMAL SALINE 1000 ML 1,000 ML IV ONE (20:24)
[2018-02-04 21:30] LABS: ABSOLUTE EOSINOPHILS # (AUTO) 0.1 10^3/uL (0.0-0.6); ABSOLUTE LYMPHOCYTES (AUTO) 1.1 10^3/uL (0.5-4.7); ABSOLUTE MONOCYTES (AUTO) 0.7 10^3/uL (0.1-1.4); ABSOLUTE NEUT (AUTO) 2.8 10^3/uL (1.7-8.2); BASOPHILS % (AUTO) 0.9 % (0-2); EOSINOPHILS % (AUTO) 1.6 % (0-6); HEMATOCRIT 35.7 % (36.0-47.0); HEMOGLOBIN 11.5 g/dL (12.0-15.5); LYMPHOCYTES % (AUTO) 23.3 % (13-45); MEAN CORPUSCULAR HEMOGLOBIN 28.6 pg (27.0-33.4); MEAN CORPUSCULAR HGB CONC 32.2 g/dL (32.0-36.0); MEAN CORPUSCULAR VOLUME 89 fl (80-97); MONOCYTES % (AUTO) 14.4 % (3-13); PLATELET COUNT 216 10^3/uL (150-450); RED BLOOD COUNT 4.03 10^6/uL (3.72-5.28); RED CELL DISTRIBUTION WIDTH 22.2 % (11.5-14.0); SEGMENTED NEUTROPHILS % (AUTO) 59.8 % (42-78); TOTAL CELLS COUNTED % (AUTO) 100 %; WHITE BLOOD COUNT 4.7 10^3/uL (4.0-10.5)
[2018-02-04 21:35] LABS: ALANINE AMINOTRANSFERASE 18 U/L (9-52); ALBUMIN 4.1 g/dL (3.5-5.0); ALKALINE PHOSPHATASE 153 U/L (38-126); ANION GAP 17 (5-19); ASPARTATE AMINO TRANSFERASE 22 U/L (14-36); BILIRUBIN,DIRECT 0.2 mg/dL (0.0-0.4); BILIRUBIN,TOTAL 0.2 mg/dL (0.2-1.3); BLOOD UREA NITROGEN 7 mg/dL (7-20); CARBON DIOXIDE 17 mmol/L (22-30); CHLORIDE 109 mmol/L (98-107); GLUCOSE 105 mg/dL (75-110); POTASSIUM 4.1 mmol/L (3.6-5.0); SODIUM 142.7 mmol/L (137-145); TOTAL PROTEIN 10.3 g/dL (6.3-8.2)
[2018-02-04 21:45] LABS: CALCIUM 6.8 mg/dL (8.4-10.2)
[2018-02-04 21:48] LABS: APPEARANCE,URINE CLEAR; BILIRUBIN,URINE NEGATIVE (NEGATIVE); COLOR,URINE YELLOW; GLUCOSE, URINE NEGATIVE (NEGATIVE); KETONES,URINE NEGATIVE (NEGATIVE); LEUKOCYTE ESTERASE,URINE MODERATE (NEGATIVE); NITRITE,URINE NEGATIVE (NEGATIVE); PROTEIN,URINE NEGATIVE (NEGATIVE); URINE SPECIFIC GRAVITY 1.013; UROBILINOGEN,URINE NEGATIVE mg/dL (<2.0)
[2018-02-04] MEDS ORDERED: CALCIUM GLUCONATE 1000 MG/10 ML INJ IV ONE (22:19)
[2018-02-04] MEDS ORDERED: CEFTRIAXONE 1 GM/D5W RTU 1 GM/50 ML RTUPB IV ONE (22:20)
[2018-02-04] MEDS ORDERED: CEFTRIAXONE INJ 1000 MG VIAL ONE (22:36)
[2018-02-04] MEDS ORDERED: CLONIDINE HCL 0.2 MG TABLET PO ONE (23:44)
[2018-02-05 01:00] VITALS: BP 132/100
--- NOTE | 2018-02-05 20:18 | EKG REPORT ---
SEVERITY:- ABNORMAL ECG - SINUS RHYTHM PROBABLE LEFT VENTRICULAR HYPERTROPHY BORDERLINE PROLONGED QT INTERVAL : Confirmed by: Homer Edmonds 05-Feb-2018 20:17:41
== END 2018-02-05 01:02 | disposition home or self-care (01) ==
LOC: ER 19:21
DX: N39.0 Urinary tract infection, site not specified (principal); T36.96XA Underdosing of unspecified systemic antibiotic, initial encounter; Z91.128 Patient's intentional underdosing of medication regimen for other reason; Z91.14 Patient's other noncompliance with medication regimen; G40.909 Epilepsy, unspecified, not intractable, without status epilepticus; E83.51 Hypocalcemia; M32.9 Systemic lupus erythematosus, unspecified; R11.2 Nausea with vomiting, unspecified; R19.7 Diarrhea, unspecified; I10 Essential (primary) hypertension; R00.0 Tachycardia, unspecified; Z88.8 Allergy status to other drugs, medicaments and biological substances; Z88.1 Allergy status to other antibiotic agents; Z87.892 Personal history of anaphylaxis; Z91.013 Allergy to seafood
CPT/HCPCS: 93005; 36591; 96376; 99284; 96361; 96375; 96365; 36415; 83735; 85025; 81025; 80053; 81001; 82330; 93010; J0610; A9270; J1200; J2765; J1170; J0696; J7030; J1953

== ENCOUNTER 2018-03-09 19:54 | Inpatient (IN) | payer MEDICARE, MEDICAID ==
[2018-03-09] MEDS ORDERED: NORMAL SALINE 1000 ML 1,000 ML IV ONE ×2 (21:01→23:47)
[2018-03-09] MEDS ORDERED: METOCLOPRAMIDE HCL INJ/PF 10 MG/2 ML SDV IV ONE (21:03)
--- NOTE | 2018-03-09 21:37 | RADIOLOGY REPORT (SQ) ---
EXAM DESCRIPTION: CHEST SINGLE VIEW COMPLETED DATE/TIME: 03/09/2018 9:14 pm REASON FOR STUDY: SOB COMPARISON: 12/01/2017 EXAM PARAMETERS: NUMBER OF VIEWS: One view. TECHNIQUE: Single frontal radiographic view of the chest acquired. RADIATION DOSE: NA LIMITATIONS: None. FINDINGS: LUNGS AND PLEURA: No acute opacities, masses or pneumothorax. No pleural effusion. MEDIASTINUM AND HILAR STRUCTURES: Stable. HEART AND VASCULAR STRUCTURES: Heart normal in size. Normal vasculature. BONES: No acute findings. HARDWARE: Left chest port. OTHER: No other significant finding. IMPRESSION: NO ACUTE RADIOGRAPHIC FINDING IN THE CHEST. TECHNICAL DOCUMENTATION: JOB ID: [id number] [id number] 2010 [employer]- All Rights Reserved Reading location - IP/workstation name: [employer]
[2018-03-09 21:55] LABS: INTERNATIONAL RATION (INR) 1.16; PROTHROMBIN TIME 15.4 SEC (11.4-15.4)
[2018-03-09 22:04] LABS: VENOUS BLOOD BASE EXCESS -4.6 mmol/L; VENOUS BLOOD HCO3 20.7 mmol/L (20-32); VENOUS BLOOD PCO2 38.9 mmHg (35-63); VENOUS BLOOD PH 7.34 (7.30-7.42)
[2018-03-09 22:07] LABS: ABSOLUTE MONOCYTES (AUTO) 0.7 10^3/uL (0.1-1.4); ABSOLUTE NEUT (AUTO) 6.2 10^3/uL (1.7-8.2); ALANINE AMINOTRANSFERASE 18 U/L (9-52); ALBUMIN 4.1 g/dL (3.5-5.0); ALKALINE PHOSPHATASE 182 U/L (38-126); ANION GAP 11 (5-19); ASPARTATE AMINO TRANSFERASE 19 U/L (14-36); BASOPHILS % (AUTO) 0.5 % (0-2); BILIRUBIN,DIRECT 0.3 mg/dL (0.0-0.4); BILIRUBIN,TOTAL 0.3 mg/dL (0.2-1.3); BLOOD UREA NITROGEN 12 mg/dL (7-20); CALCIUM 8.4 mg/dL (8.4-10.2); CARBON DIOXIDE 20 mmol/L (22-30); CHLORIDE 109 mmol/L (98-107); EOSINOPHILS % (AUTO) 0.3 % (0-6); GLUCOSE 96 mg/dL (75-110); HEMATOCRIT 35.4 % (36.0-47.0); HEMOGLOBIN 11.9 g/dL (12.0-15.5); MEAN CORPUSCULAR HEMOGLOBIN 30.5 pg (27.0-33.4); MEAN CORPUSCULAR HGB CONC 33.6 g/dL (32.0-36.0); MEAN CORPUSCULAR VOLUME 91 fl (80-97); MONOCYTES % (AUTO) 9.2 % (3-13); PLATELET COUNT 155 10^3/uL (150-450); POTASSIUM 3.8 mmol/L (3.6-5.0); RED BLOOD COUNT 3.91 10^6/uL (3.72-5.28); RED CELL DISTRIBUTION WIDTH 17.2 % (11.5-14.0); SODIUM 140.4 mmol/L (137-145); TOTAL CELLS COUNTED % (AUTO) 100 %; TOTAL PROTEIN 9.9 g/dL (6.3-8.2); WHITE BLOOD COUNT 7.9 10^3/uL (4.0-10.5)
--- NOTE | 2018-03-09 22:07 | ER Document Report ---
ED General - General Mode of Arrival: Ambulatory Information source: Patient TRAVEL OUTSIDE OF THE [place] IN LAST 30 DAYS: No <CHARLEEN JEFFRIES - Last Filed: 03/10/18 02:33> <TONI KEBEDE - Last Filed: 03/10/18 04:03> - General Chief Complaint: Shortness Of Breath Stated Complaint: SHORTNESS OF BREATH Time Seen by Provider: 03/09/18 21:00 Notes: Patient is a 22 year old female with asthma, Lupus, epilepsy, anti- phospholipid syndrome, blood clots, hypertension presents to the emergency department complaining of shortness of breath and chest pain with associated symptoms of nausea and vomiting onset 2 days ago. Patient states her chest pain radiates into her back and reports vomiting 4x today and over 4x yesterday. Patient states she has minimal left upper quadrant abdominal pain. Patient denies diarrhea or recent blood clots. Patient's last BM was today which she described as normal. Patient's PCP is Dr. Carmen. Patient is currently taking Arixtra. (CHARLEEN JEFFRIES) - Related Data Allergies/Adverse Reactions: shellfish derived Allergy (Severe, Verified 01/28/18 16:06) Anaphylaxis ketorolac tromethamine [From Toradol] Allergy (Intermediate, Verified 01/28/18 16:06) Hives morphine [Morphine] Allergy (Intermediate, Verified 01/28/18 16:06) Hives sulfamethoxazole [From Bactrim] Allergy (Unknown, Verified 01/28/18 16:06) Pruritis trimethoprim [From Bactrim] Allergy (Unknown, Verified 01/28/18 16:06) Pruritis belimumab [From Benlysta] Allergy (Verified 01/28/18 16:06) rash Past Medical History - Social History Smoking Status: Never Smoker Chew tobacco use (# tins/day): No Frequency of alcohol use: Occasional Drug Abuse: None Family History: None, Hypertension, Other - Lupus-mother Patient has suicidal ideation: No Patient has homicidal ideation: No - Past Medical History Cardiac Medical History: Reports: Hx DVT, Hx Hypertension - ON MEDS, Hx Pulmonary Embolism Denies: Hx Coronary Artery Disease, Hx Heart Attack, Hx Hypercholesterolemia Pulmonary Medical History: Reports: Hx Asthma - CHILDHOOD ASTHMA, Hx Pneumonia Denies: Hx Bronchitis, Hx COPD, Hx Tuberculosis Neurological Medical History: Reports: Hx Migraine, Hx Seizures - ON MEDS (MARCH 2017). Denies: Hx Cerebrovascular Accident Endocrine Medical History: Denies: Hx Diabetes Mellitus Type 1, Hx Diabetes Mellitus Type 2, Hx Hyperthyroidism, Hx Hypothyroidism Renal/ Medical History: Denies: Hx Peritoneal Dialysis GI Medical History: Reports: Hx Gastritis, Hx Gastroesophageal Reflux Disease, Hx Ulcer, Hx Endoscopy. Denies: Hx Cirrhosis, Hx Hepatitis Musculoskeltal Medical History: Reports Hx Arthritis - LUPUS Skin Medical History: Reports Hx Cellulitis Psychiatric Medical History: Reports: Hx Anxiety Denies: Hx Depression Infectious Medical History: Reports: Hx C-Diff, Hx MRSA. Denies: Hx Hepatitis Past Surgical History: Reports: Hx Abdominal Surgery - PEG tube, Hx Neurologic Surgery - C-SPINE Fx STABILIZATION, Other - PEG placement 2, Port-A-Cath, odontoid fxr repair late 2016 [employer]. Denies: Hx Hysterectomy - Immunizations Immunizations up to date: Yes Hx Diphtheria, Pertussis, Tetanus Vaccination: Yes Hx Pneumococcal Vaccination: 10/04/14 <CHARLEEN JEFFRIES - Last Filed: 03/10/18 02:33> Review of Systems - Review of Systems Constitutional: No symptoms reported EENT: No symptoms reported Cardiovascular: See HPI, Chest pain Respiratory: See HPI, Short of breath Gastrointestinal: See HPI, Abdominal pain, Nausea, Vomiting Genitourinary: No symptoms reported Female Genitourinary: No symptoms reported Musculoskeletal: No symptoms reported Skin: No symptoms reported Hematologic/Lymphatic: No symptoms reported Neurological/Psychological: No symptoms reported -: Yes All other systems reviewed and negative <CHARLEEN JEFFRIES - Last Filed: 03/10/18 02:33> Physical Exam <CHARLEEN JEFFRIES - Last Filed: 03/10/18 02:33> <TONI KEBEDE - Last Filed: 03/10/18 04:03> - Vital signs Vitals: Resp BP Pulse Ox 25 H 146/106 H 95 03/09/18 20:36 03/09/18 20:36 03/09/18 20:36 - Notes Notes: GENERAL: Alert, appears uncomfortable. No acute distress. HEAD: Normocephalic, atraumatic. EYES: Pupils equal, round, and reactive to light. Extraocular movements intact. ENT: Dry mucous membranes, tongue midline. NECK: Full range of motion. Supple. Trachea midline. LUNGS: Clear to auscultation bilaterally, no wheezes, rales, or rhonchi. Power port in left chest wall. No respiratory distress. HEART: Tachycardic. Regular rate and rhythm. No murmurs, gallops, or rubs. ABDOMEN: Soft, tender to palpation to the LUQ. Non-distended. Bowel sounds present in all 4 quadrants. EXTREMITIES: Moves all 4 extremities spontaneously. NEUROLOGICAL: Alert and oriented x3. Normal speech. SKIN: Warm, dry, normal turgor. No rashes or lesions noted. (CHARLEEN JEFFRIES) Course - Laboratory Result Diagrams: 03/09/18 21:32 03/09/18 21:32 <CHARLEEN JEFFRIES - Last Filed: 03/10/18 02:33> - Laboratory Result Diagrams: 03/09/18 21:32 03/09/18 21:32 <TONI KEBEDE - Last Filed: 03/10/18 04:03> - Re-evaluation Re-evalutation: 03/10/18 03:58 Patient is a 22-year-old female who comes in complaining of chest pain, nausea, vomiting, and side pain bilaterally. Patient also stated that she was having some pain with breathing. History of lupus, DVT. She is seen by Dr. Carmen and is on anticoagulation. Patient initially had some left upper quadrant tenderness to palpation that is since resolved. Patient is still nauseated although it is much improved with medications. Patient had a bowel movement today. No evidence for obstruction. Patient after urine was obtained and showed what looks to be infection now does state that she has had some may be dysuria recently. She is tender in her bilateral CVA consistent with pyelonephritis. Due to persistent tachycardia and patient's continued nausea, she will be admitted to the hospital service for continued management of her symptoms. Of note, she is only received a small dose of fentanyl here for pain. Stable at the time of admission. Understands and agrees with plan. (TONI KEBEDE) - Vital Signs Vital signs: Temp Pulse Resp BP Pulse Ox 98.4 F 39 H 119/99 H 100 03/09/18 20:37 03/10/18 03:00 03/10/18 00:03/10/18 03:00 - Laboratory Laboratory results interpreted by me: 03/09/18 03/09/18 03/09/18 21:32 21:32 21:47 Hgb 11.9 L Hct 35.4 L RDW 17.2 H Lymphocytes % 12.0 L Chloride 109 H Carbon Dioxide 20 L Creatinine 0.37 L Lactic Acid < 0.5 L Alkaline Phosphatase 182 H Total Protein 9.9 H Urine Protein Urine Ketones Urine Blood Ur Leukocyte Esterase 03/10/18 00:05 Hgb Hct RDW Lymphocytes % Chloride Carbon Dioxide Creatinine Lactic Acid Alkaline Phosphatase Total Protein Urine Protein 30 H Urine Ketones 20 H Urine Blood SMALL H Ur Leukocyte Esterase LARGE H Critical Care Note - Critical Care Note Total time excluding time spent on procedures (mins): 45 - Evaluation and management of tachycardia, diagnosis of pyelonephritis, coordination of admission, counseling of patient, multiple re-evaluations <TONI KEBEDE - Last Filed: 03/10/18 04:03> Discharge <CHARLEEN JEFFRIES - Last Filed: 03/10/18 02:33> - Discharge Admitting Provider: [facility] Admitted: Telemetry <TONI KEBEDE - Last Filed: 03/10/18 04:03> - Discharge Clinical Impression: Pyelonephritis Vomiting Qualifiers: Vomiting type: unspecified Vomiting Intractability: non-intractable Nausea presence: with nausea Qualified Code(s): R11.2 - Nausea with vomiting, unspecified UTI (urinary tract infection) Qualifiers: Urinary tract infection type: site unspecified Hematuria presence: without hematuria Qualified Code(s): N39.0 - Urinary tract infection, site not specified Condition: Stable Disposition: ADMITTED INPATIENT Scribe Attestation: 03/10/18 04:03 I personally performed the services described in the documentation, reviewed and edited the documentation which was dictated to the scribe in my presence, and it accurately records my words and actions. (TONI KEBEDE) Scribe Documentation - Scribe Written by Scribe:: Zeyad Rao, 03/09/2018 22:15 acting as scribe for :: Deja <CHARLEEN JEFFRIES - Last Filed: 03/10/18 02:33>
[2018-03-09] MEDS ORDERED: DICYCLOMINE HCL INJ 20 MG/2 ML AMPULE IM ONE (22:15)
[2018-03-09 22:21] LABS: ANISOCYTOSIS 1+; PLATELET COMMENT ADEQUATE; PLATELET LARGE PRESENT
--- NOTE | 2018-03-09 22:36 | EKG REPORT ---
SEVERITY:- OTHERWISE NORMAL ECG - SINUS TACHYCARDIA : Confirmed by: Citlalli Falk MD 09-Mar-2018 22:35:46
[2018-03-09] MEDS ORDERED: SUCRALFATE 1 GM TABLET PO ONE (22:57)
[2018-03-09] MEDS ORDERED: ONDANSETRON 4 MG TAB.RAPDIS PO ONE (22:57)
[2018-03-09] MEDS ORDERED: ONDANSETRON 4 MG TAB.RAPDIS ONE (23:39)
[2018-03-09] MEDS ORDERED: PANTOPRAZOLE SODIUM 40 MG VIAL IV ONE (23:47)
[2018-03-10] MEDS ORDERED: DICYCLOMINE HCL INJ 20 MG/2 ML AMPULE IM ONE (00:15)
[2018-03-10 00:41] LABS: APPEARANCE,URINE CLOUDY; BILIRUBIN,URINE NEGATIVE (NEGATIVE); COLOR,URINE YELLOW; GLUCOSE, URINE NEGATIVE (NEGATIVE); KETONES,URINE 20 mg/dL (NEGATIVE); LEUKOCYTE ESTERASE,URINE LARGE (NEGATIVE); NITRITE,URINE NEGATIVE (NEGATIVE); PROTEIN,URINE 30 mg/dL (NEGATIVE); URINE SPECIFIC GRAVITY 1.015; UROBILINOGEN,URINE NEGATIVE mg/dL (<2.0)
[2018-03-10 01:14] LABS: URINE AMPHETAMINES SCREEN NEGATIVE; URINE BARBITURATES SCREEN NEGATIVE; URINE BENZODIAZEPINES SCREEN NEGATIVE; URINE COCAINE SCREEN NEGATIVE; URINE MARIJUANA (THC) SCREEN NEGATIVE; URINE METHADONE SCREEN NEGATIVE; URINE PHENCYCLIDINE SCREEN NEGATIVE
[2018-03-10] MEDS ORDERED: CEFTRIAXONE 1 GM/D5W RTU 1 GM/50 ML RTUPB IV ONE (01:16)
--- NOTE | 2018-03-10 01:26 | RADIOLOGY REPORT (SQ) ---
EXAM DESCRIPTION: CT CHEST ANGIOGRAPHY WITHOUT THEN WITH IV CONTRAST CLINICAL HISTORY: 22 years Female, CP, tachy, evaluate for PE Comparison: 8.11.20, images only. Technique: IV contrast. Coronal and sagittal reformat. 3d reconstruction. This exam was performed according to our departmental dose-optimization program, which includes automated exposure control, adjustment of the mA and/or kV according to patient size and/or use of iterative reconstruction technique.[facility]: Dose Right [facility]: CareDose [facility]: Dose Right [facility]: Teradose 4D [facility]: YoungCurrent LIMITATIONS: None Findings: No pulmonary embolus. No right ventricular strain. Pulmonary vascular congestion. Moderate anterior vertebral compression deformity of the mid thoracic spine at the thoracolumbar junction without significant interval change compared with prior exam from May 2017. Upper abdominal clips. Moderate dextroconvexity. Left jugular central line tip at the right atrium; consider 4.8 cm retraction. Inferior neck, axillae, mediastinum, lungs, airway, lymphatics, heart, vasculature, upper abdomen, and musculoskeleton appear unremarkable. Impression: 1. Pulmonary vascular congestion. 2.Left jugular central line tip at the right atrium; consider 4.8 cm retraction. 3. No pulmonary embolus.
[2018-03-10] MEDS ORDERED: FENTANYL CITRATE INJ/PF 100 MCG/2 ML AMPUL IV ONE (01:37)
[2018-03-10] MEDS ORDERED: MAG HYDROX/AL HYDROX/SIMETH SUSP 30 ML UDCUP PO PRN (02:38)
[2018-03-10] MEDS ORDERED: MAGNESIUM HYDROXIDE SUSP 30 ML UDCUP PO PRN (02:38)
[2018-03-10] MEDS ORDERED: ACETAMINOPHEN 650 MG SUPP.RECT PR PRN (02:38)
[2018-03-10] MEDS ORDERED: NORMAL SALINE 1000 ML 1,000 ML IV SCH (02:45)
[2018-03-10] MEDS ORDERED: KETOROLAC TROMETHAMINE INJ/PF 30 MG/1 ML SDV IV PRN (02:46)
--- NOTE | 2018-03-10 03:57 | RADIOLOGY REPORT (SQ) ---
EXAM DESCRIPTION: XR ABDOMEN 2 VIEWS SUPINE ERECT CLINICAL HISTORY: 22 years Female, abd pain COMPARISON: None. NUMBER OF VIEWS/TECHNIQUE: 2 FINDINGS: Intestinal gas pattern is within normal limits. No suspicious calcification. Left paracentral abdominal clips. Central line tip at the right atrium partially imaged. Grossly intact skeletal structures. IMPRESSION: No acute findings.
[2018-03-10] MEDS: CLONIDINE HCL 0.1 MG TABLET PO SCH ×3 (05:03→22:54)
[2018-03-10] MEDS: FENTANYL CITRATE INJ/PF 100 MCG/2 ML AMPUL IV PRN ×2 (05:13→09:58)
[2018-03-10] MEDS ORDERED: LACTULOSE SYRUP 20 GM/30 ML UDCUP PO ONE (06:51)
[2018-03-10 06:55] LABS: ABSOLUTE LYMPHOCYTES (AUTO) 0.6 10^3/uL (0.5-4.7); ABSOLUTE MONOCYTES (AUTO) 0.8 10^3/uL (0.1-1.4); ABSOLUTE NEUT (AUTO) 5.2 10^3/uL (1.7-8.2); BASOPHILS % (AUTO) 0.3 % (0-2); EOSINOPHILS % (AUTO) 0.3 % (0-6); HEMATOCRIT 31.1 % (36.0-47.0); HEMOGLOBIN 10.1 g/dL (12.0-15.5); LYMPHOCYTES % (AUTO) 8.8 % (13-45); MEAN CORPUSCULAR HEMOGLOBIN 29.6 pg (27.0-33.4); MEAN CORPUSCULAR HGB CONC 32.4 g/dL (32.0-36.0); MEAN CORPUSCULAR VOLUME 92 fl (80-97); MONOCYTES % (AUTO) 11.6 % (3-13); PLATELET COUNT 136 10^3/uL (150-450); RED CELL DISTRIBUTION WIDTH 16.9 % (11.5-14.0); TOTAL CELLS COUNTED % (AUTO) 100 %; WHITE BLOOD COUNT 6.5 10^3/uL (4.0-10.5)
--- NOTE | 2018-03-10 06:56 | PDOC H&P ---
History of Present Illness Admission Date/PCP: 03/10/18 02:39 BOB ELI MD Patient complains of: Abdominal pain and vomiting History of Present Illness: JOSE DUMONT is a 22 year old female with a past medical history of lupus on CellCept, anti-phospholipid antibody on Arixtra, asthma, seizure disorder and recurrent UTI. Patient presents with 5 days of abdominal pain in 24 hours of nausea vomiting dysuria and polyuria. In the emergency room she has an unremarkable workup, no fever but a urinalysis suggestive of pyuria. She started on empiric antibiotics and for the hospitalist for admission. Patient denies recent antibiotic use and otherwise feels well Past Medical History Cardiac Medical History: Reports: DVT, Hypertension - ON MEDS, Pulmonary Embolism Denies: Coronary Artery Disease, Myocardial Infarction, Hyperlipidema Pulmonary Medical History: Reports: Asthma - CHILDHOOD ASTHMA, Pneumonia Denies: Bronchitis, Chronic Obstructive Pulmonary Disease (COPD), Tuberculosis Neurological Medical History: Reports: Migraine, Seizures - ON MEDS (MARCH 2017) Endocrine Medical History: Denies: Diabetes Mellitus Type 1, Diabetes Mellitus Type 2, Hyperthyroidism, Hypothyroidism GI Medical History: Reports: Gastroesophageal Reflux Disease Denies: Cirrhosis, Hepatitis Musculoskeltal Medical History: Reports: Arthritis - LUPUS Psychiatric Medical History: Denies: Depression Hematology: Reports: Anemia, Heparin Induced Thrombocytopenia - History of same Infectious Medical History: Reports: Clostridium Difficile, Methicillin- Resistant Staph Aureus Past Surgical History Past Surgical History: Reports: Other - PEG placement 2, Port-A-Cath, odontoid fxr repair late 2016 [employer] Denies: Hysterectomy Social History Information Source: Patient, [facility] Records Smoking Status: Never Smoker Frequency of Alcohol Use: Occasional Hx Recreational Drug Use: No Drugs: None Hx Prescription Drug Abuse: No - Advance Directive Resuscitation Status: Full Code Family History Family History: Hypertension, Other - Lupus-mother Parental Family History Reviewed: Yes Children Family History Reviewed: Yes Sibling(s) Family History Reviewed.: Yes Medication/Allergy Home Medications: Alprazolam [Xanax] 1 mg PO Q12 10/23/17 Clonidine HCl [Catapres 0.3 mg Tablet] 0.3 mg PO Q12 10/23/17 Cyclobenzaprine HCl [Flexeril 10 mg Tablet] 10 mg PO QHS 10/23/17 Ondansetron [Zofran Odt] 8 mg PO QIDP PRN 10/23/17 Tizanidine HCl [Zanaflex] 6 mg PO Q8HP PRN 10/23/17 Zolpidem Tartrate [Ambien] 10 mg PO QHS 10/23/17 Metoprolol Tartrate [Lopressor 50 mg Tablet] 50 mg PO Q12 #60 tablet 10/27/17 Butalb/Acetaminophen/Caffeine [Fioricet (50-325-40 mg) Tablet] 1 tab PO Q4HP PRN 11/21/17 Diphenhydramine HCl [Benadryl] 25 mg PO DAILYP PRN 11/21/17 Fondaparinux Sodium [Arixtra Inj 7.5 mg/0.6 ml Disp. Syrin] 7.5 mg SUBCUT DAILY 11/21/17 Hydroxychloroquine Sulfate [Plaquenil 200 mg Tablet] 200 mg PO DAILY 11/21/17 Lansoprazole [Prevacid] 15 mg PO DAILY 11/21/17 Nystatin/Dexameth/Diphen [Magic Mouthwash] 5 ml PO DAILYP PRN 11/21/17 Oxycodone HCl/Acetaminophen [Percocet 10-325 mg Tablet] 1 each PO Q8HP PRN 11/21 Prednisone 5 mg PO DAILY 11/21/17 Albuterol Sulfate [Ventolin HFA MDI 18 GM] 2 puff IH Q4HP PRN 11/22/17 Fluticasone/Salmeterol [Advair 250-50 Diskus 14 Dose/Diskus] 1 puff IH Q12 11/22 Levetiracetam 10 ml PO BID 11/22/17 Mycophenolate Mofetil 7.5 ml PO Q12 11/22/17 Nystatin [Mycostatin Cream 15 gm] 1 applic TOP DAILYP PRN 11/22/17 Nystatin [Nyata] 1 applic TOP DAILYP PRN 11/22/17 Promethazine HCl [Phenergan 25 mg Tablet] 1 tab PO Q6H PRN 11/22/17 Ciprofloxacin HCl [Cipro 500 mg Tablet] 500 mg PO BID #10 tablet 01/28/18 Metoclopramide HCl [Reglan 10 mg Tablet] 1 - 2 tab PO ASDIR PRN #10 tablet 01/28 Ciprofloxacin HCl [Cipro 500 mg Tablet] 500 mg PO BID #10 tablet 02/04/18 Calcium Carbonate [Calcium Carbonate 260 mg Chewable Tablet] 260 mg PO DAILY # 10 tab.chew 02/05/18 Cephalexin Monohydrate [Keflex 125 mg/5 ml Susp] 500 mg PO BID #200 ml 02/05/18 Allergies/Adverse Reactions: shellfish derived Allergy (Severe, Verified 01/28/18 16:06) Anaphylaxis ketorolac tromethamine [From Toradol] Allergy (Intermediate, Verified 01/28/18 16:06) Hives morphine [Morphine] Allergy (Intermediate, Verified 01/28/18 16:06) Hives sulfamethoxazole [From Bactrim] Allergy (Unknown, Verified 01/28/18 16:06) Pruritis trimethoprim [From Bactrim] Allergy (Unknown, Verified 01/28/18 16:06) Pruritis belimumab [From Benlysta] Allergy (Verified 01/28/18 16:06) rash Review of Systems Constitutional: ABSENT: chills, fever(s), headache(s), weight gain, weight loss Eyes: ABSENT: visual disturbances Ears: ABSENT: hearing changes Cardiovascular: ABSENT: chest pain, dyspnea on exertion, edema, orthropnea, palpitations Respiratory: ABSENT: cough, hemoptysis Gastrointestinal: ABSENT: abdominal pain, constipation, diarrhea, hematemesis, hematochezia, nausea, vomiting Genitourinary: ABSENT: dysuria, hematuria Musculoskeletal: ABSENT: joint swelling Integumentary: ABSENT: rash, wounds Neurological: ABSENT: abnormal gait, abnormal speech, confusion, dizziness, focal weakness, syncope Psychiatric: ABSENT: anxiety, depression, homidical ideation, suicidal ideation Endocrine: ABSENT: cold intolerance, heat intolerance, polydipsia, polyuria Hematologic/Lymphatic: ABSENT: easy bleeding, easy bruising Physical Exam Vital Signs: Temp Pulse Resp BP Pulse Ox 99.1 F 140 H 32 H 140/93 H 100 03/10/18 04:05 03/10/18 04:05 03/10/18 04:05 03/10/18 04:05 03/10/18 04:05 Intake & Output 03/08/18 03/09/18 03/10/18 11:59 11:59 11:59 Weight 58.9 kg General appearance: PRESENT: cooperative, mild distress, well-developed, well- nourished Head exam: PRESENT: atraumatic, normocephalic Eye exam: PRESENT: conjunctiva pink, EOMI, PERRLA. ABSENT: scleral icterus Ear exam: PRESENT: normal external ear exam Mouth exam: PRESENT: moist, tongue midline Neck exam: ABSENT: carotid bruit, JVD, lymphadenopathy, thyromegaly Respiratory exam: PRESENT: clear to auscultation tavia. ABSENT: rales, rhonchi, wheezes Cardiovascular exam: PRESENT: RRR. ABSENT: diastolic murmur, rubs, systolic murmur Pulses: PRESENT: normal dorsalis pedis pul Vascular exam: PRESENT: normal capillary refill GI/Abdominal exam: PRESENT: diminished bowel sounds, hypoactive bowel sounds, normal bowel sounds, soft, tenderness - Diffuse no guarding. ABSENT: ascites, distended, guarding, mass, organolmegaly, rebound Rectal exam: PRESENT: deferred Extremities exam: PRESENT: full ROM. ABSENT: calf tenderness, clubbing, pedal edema Neurological exam: PRESENT: alert, awake, oriented to person, oriented to place , oriented to time, oriented to situation, CN II-XII grossly intact. ABSENT: motor sensory deficit Psychiatric exam: PRESENT: appropriate affect, normal mood. ABSENT: homicidal ideation, suicidal ideation Skin exam: PRESENT: dry, intact, warm. ABSENT: cyanosis, rash Results Impressions: Chest X-Ray 03/09/18 21:01 IMPRESSION: NO ACUTE RADIOGRAPHIC FINDING IN THE CHEST. Abdomen X-Ray 03/10/18 02:47 IMPRESSION: No acute findings. Assessment & Plan - Diagnosis (1) Pyelonephritis Is this a current diagnosis for this admission?: Yes Plan: Complicated by medical immunomodulation, continue empiric antibiotics follow-up CBC in urine culture (2) Vomiting Qualifiers: Vomiting type: unspecified Vomiting Intractability: non-intractable Nausea presence: with nausea Qualified Code(s): R11.2 - Nausea with vomiting, unspecified Is this a current diagnosis for this admission?: Yes Plan: Secondary to #1 symptomatic management (3) Abdominal pain Is this a current diagnosis for this admission?: Yes Plan: Secondary to #1 obtain abdominal series and symptomatic management (4) Lupus (systemic lupus erythematosus) Qualifiers: Is this a current diagnosis for this admission?: Yes Plan: Continue outpatient regiment - Time Time Spent: 30 to 50 Minutes - Inpatient Certification Medical Necessity: Need Close Monitoring Due to Risk of Patient Decompensation
[2018-03-10 07:01] LABS: ANION GAP 8 (5-19); BLOOD UREA NITROGEN 5 mg/dL (7-20); CALCIUM 7.5 mg/dL (8.4-10.2); CARBON DIOXIDE 19 mmol/L (22-30); CHLORIDE 112 mmol/L (98-107); GLUCOSE 98 mg/dL (75-110); POTASSIUM 3.8 mmol/L (3.6-5.0); SODIUM 139.4 mmol/L (137-145)
[2018-03-10] MEDS: IPRATROPIUM/ALBUTEROL 0.5-2.5 MG/3 ML AMPUL NEB SCH ×3 (08:10→23:40)
[2018-03-10] MEDS: PROMETHAZINE HCL 25 MG TABLET PO PRN (09:58)
[2018-03-10] MEDS ORDERED: LEVETIRACETAM ORAL SOLN 500 MG/5 ML UDCUP PO SCH (10:00)
[2018-03-10] MEDS ORDERED: CEFTRIAXONE 1 GM/D5W RTU 1 GM/50 ML RTUPB IV SCH (10:00)
[2018-03-10] MEDS ORDERED: (PENDING PHARMACY ID) (Alprazolam [Xanax] 0.5 MG) PO SCH (10:00)
[2018-03-10] MEDS ORDERED: LEVETIRACETAM ORAL SOLN 500 MG/5 ML UDCUP PO ONE (11:00)
[2018-03-10] MEDS: CEFTRIAXONE SODIUM 1,000 MG in DEXTROSE 5%-WATER 50 ML IV SCH (11:18)
[2018-03-10] MEDS: HYDROXYCHLOROQUINE SULFATE 200 MG TABLET PO SCH (11:19)
[2018-03-10] MEDS: DOCUSATE SODIUM 100 MG CAPSULE PO SCH ×2 (11:38→18:00)
[2018-03-10] MEDS: FONDAPARINUX SODIUM INJ 7.5 MG/0.6 ML DISP.SYRIN SUBCUT SCH (11:38)
[2018-03-10] MEDS ORDERED: CYCLOBENZAPRINE HCL 10 MG TABLET PO PRN (12:04)
[2018-03-10] MEDS ORDERED: IBUPROFEN 600 MG TABLET PO PRN (12:04)
[2018-03-10] MEDS ORDERED: (PENDING PHARMACY ID) (Oxycodone Hcl/Acetaminophen [Percocet 10-325 Mg Tablet] 1 EACH) PO PRN (12:19)
[2018-03-10] MEDS ORDERED: OXYCODONE-ACETAMINOPHEN 5-325 MG TABLET PO PRN (12:30)
[2018-03-10] MEDS ORDERED: OXYCODONE HCL IR 5 MG TABLET PO PRN (12:30)
[2018-03-10] MEDS: MORPHINE SULFATE 10 MG/ML INJ IV PRN ×2 (16:40→20:30)
[2018-03-10] MEDS: ACETAMINOPHEN 325 MG TABLET PO PRN (20:30)
[2018-03-10] MEDS ORDERED: MYCOPHENOLATE MOFETIL PO SCH (22:00)
[2018-03-10] MEDS ORDERED: (PENDING PHARMACY ID) (Zolpidem Tartrate [Ambien] 10 MG) PO SCH (22:00)
[2018-03-10] MEDS: CARBAMAZEPINE SUSP 200 MG/10 ML UDCUP PO SCH (22:50)
[2018-03-10] MEDS: LEVETIRACETAM ORAL SOLN 500 MG/5 ML UDCUP PO SCH (22:53)
[2018-03-10] MEDS: ZOLPIDEM TARTRATE 5 MG TABLET PO SCH (22:55)
[2018-03-11] MEDS: MORPHINE SULFATE 10 MG/ML INJ IV PRN ×5 (00:36→22:54)
[2018-03-11] MEDS: ACETAMINOPHEN 325 MG TABLET PO PRN ×2 (01:43→22:45)
[2018-03-11] MEDS ORDERED: HYDROCORTISONE SOD SUCCINATE INJ/PF 100 MG/2 ML SDV IV ONE (05:18)
[2018-03-11] MEDS ORDERED: DOPAMINE HCL/DEXTROSE 5%-WATER 800 MG/250 ML RTUINJ IV PRN (05:18)
[2018-03-11] MEDS ORDERED: VANCOMYCIN HCL 1,500 MG in DEXTROSE 5%-WATER 250 ML IV ONE (05:20)
[2018-03-11] MEDS ORDERED: NORMAL SALINE 1000 ML 1,000 ML IV ONE (05:20)
[2018-03-11] MEDS ORDERED: VANCOMYCIN HCL INJ 1000 MG VIAL IV PRN (05:27)
[2018-03-11] MEDS ORDERED: VANCOMYCIN HCL 0 MG in DEXTROSE 5%-WATER 250 ML IV NR (05:30)
[2018-03-11] MEDS ORDERED: VANCOMYCIN HCL INJ 500 MG VIAL ONE (05:40)
[2018-03-11] MEDS ORDERED: VANCOMYCIN HCL INJ 1000 MG VIAL ONE (05:40)
[2018-03-11 06:11] LABS: ABSOLUTE LYMPHOCYTES (AUTO) 1.1 10^3/uL (0.5-4.7); ABSOLUTE NEUT (AUTO) 7.8 10^3/uL (1.7-8.2); BASOPHILS % (AUTO) 0.2 % (0-2); EOSINOPHILS % (AUTO) 0.1 % (0-6); HEMATOCRIT 30.7 % (36.0-47.0); HEMOGLOBIN 10.1 g/dL (12.0-15.5); LYMPHOCYTES % (AUTO) 11.2 % (13-45); MEAN CORPUSCULAR HEMOGLOBIN 30.5 pg (27.0-33.4); MEAN CORPUSCULAR HGB CONC 32.8 g/dL (32.0-36.0); MEAN CORPUSCULAR VOLUME 93 fl (80-97); MONOCYTES % (AUTO) 10.3 % (3-13); PLATELET COUNT 126 10^3/uL (150-450); RED CELL DISTRIBUTION WIDTH 15.8 % (11.5-14.0); SEGMENTED NEUTROPHILS % (AUTO) 78.2 % (42-78); TOTAL CELLS COUNTED % (AUTO) 100 %
[2018-03-11 06:26] LABS: ANION GAP 10 (5-19); BLOOD UREA NITROGEN 8 mg/dL (7-20); CALCIUM 7.1 mg/dL (8.4-10.2); CARBON DIOXIDE 18 mmol/L (22-30); CHLORIDE 111 mmol/L (98-107); GLUCOSE 132 mg/dL (75-110); POTASSIUM 3.9 mmol/L (3.6-5.0); SODIUM 138.5 mmol/L (137-145)
[2018-03-11 06:48] LABS: ERYTHROCYTE SEDIMENTATION RATE 69 mm/hr (0-20)
[2018-03-11] MEDS: CLONIDINE HCL 0.1 MG TABLET PO SCH ×3 (07:07→22:48)
[2018-03-11] MEDS: IPRATROPIUM/ALBUTEROL 0.5-2.5 MG/3 ML AMPUL NEB SCH ×3 (08:44→23:10)
--- NOTE | 2018-03-11 09:22 | RADIOLOGY REPORT (SQ) ---
EXAM DESCRIPTION: CHEST SINGLE VIEW COMPLETED DATE/TIME: 03/11/2018 9:02 am REASON FOR STUDY: Central line placement COMPARISON: 03/09/2018 EXAM PARAMETERS: NUMBER OF VIEWS: One view. TECHNIQUE: Single frontal radiographic view of the chest acquired. RADIATION DOSE: NA LIMITATIONS: Patient has made a shallow inspiration. FINDINGS: LUNGS AND PLEURA: There is increased density in the left hemithorax with loss of definitio n of the left hemidiaphragm suggesting a small left pleural effusion and I cannot exclude some associ ated atelectasis or infiltrate in the left lower lung field. No pneumothorax is seen. The right wm g remains clear. MEDIASTINUM AND HILAR STRUCTURES: No masses. Contour normal. HEART AND VASCULAR STRUCTURES: There is some prominence of the cardiac silhouette presumably related to the shallow inspiration. BONES: No acute findings. HARDWARE: Port-A-Cath is unchanged in position. Monitoring catheters are identified overlying the he mithorax. OTHER: No other significant finding. IMPRESSION: Port-A-Cath is unchanged in position with its tip projected at the level of the right at rium. Other findings as noted above TECHNICAL DOCUMENTATION: JOB ID: [id number] [facility]- All Rights Reserved Reading location - IP/workstation name: [email or web address]
[2018-03-11] MEDS: LACTOBACILLUS ACIDOPHILUS 250 MG TAB PO SCH (09:44)
[2018-03-11] MEDS: CARBAMAZEPINE SUSP 200 MG/10 ML UDCUP PO SCH ×2 (09:45→22:45)
[2018-03-11] MEDS: METOPROLOL TARTRATE 25 MG TABLET PO SCH (09:45)
[2018-03-11] MEDS: DOCUSATE SODIUM 100 MG CAPSULE PO SCH ×2 (09:45→18:15)
[2018-03-11] MEDS: HYDROXYCHLOROQUINE SULFATE 200 MG TABLET PO SCH (09:46)
[2018-03-11] MEDS: CEFTRIAXONE SODIUM 1,000 MG in DEXTROSE 5%-WATER 50 ML IV SCH (09:46)
[2018-03-11] MEDS: LEVETIRACETAM ORAL SOLN 500 MG/5 ML UDCUP PO SCH ×2 (09:47→22:43)
[2018-03-11] MEDS: FONDAPARINUX SODIUM INJ 7.5 MG/0.6 ML DISP.SYRIN SUBCUT SCH (09:47)
[2018-03-11] MEDS ORDERED: LACTOBACILLUS ACIDOPHILUS 460 MG PO SCH (10:00)
[2018-03-11] MEDS ORDERED: (PENDING PHARMACY ID) (Calcium Carbonate [Calcium] 500 MG) PO SCH (10:00)
[2018-03-11] MEDS ORDERED: NORMAL SALINE INJ/PF 0.9% 10 ML SDV IV PRN (10:54)
--- NOTE | 2018-03-11 10:56 | Operative Report ---
Operative Report DATE OF SURGERY: 03/11/18 PREOPERATIVE DIAGNOSIS: Septic shock POSTOPERATIVE DIAGNOSIS: Same OPERATION: Ultrasound directed placement of right internal jugular central venous access catheter, triple-lumen SURGEON: MELINA YANES ANESTHESIA: Local TISSUE REMOVED OR ALTERED: None COMPLICATIONS: none ESTIMATED BLOOD LOSS: scant INTRAOPERATIVE FINDINGS: see below PROCEDURE: Informed consent was obtained. The patient was placed in Trendelenburg the right neck and chest wall were exposed, and prepped and draped in a sterile fashion. Surgical plan and surgical timeout discussed. The right neck was anesthetized with 1% lidocaine without epinephrine. Using the variable frequency linear transducer, real time, a 18-gauge needle and wire were threaded into the right internal jugular vein. The tract was dilated up, the dilator removed, and the triple-lumen central venous access catheter was threaded into the right internal jugular vein uneventfully to the hub. There was excellent aspiration and flush of saline through all 3 lumens. The catheter was affixed to the skin with a Biopatch and 2-0 silk suture; sterile dressing applied. The patient tolerated the procedure well. There were no complications. Portable upright chest x-ray pending at time of dictation.
[2018-03-11] MEDS: FENTANYL CITRATE INJ/PF 100 MCG/2 ML AMPUL IV PRN (11:24)
--- NOTE | 2018-03-11 11:35 | PDOC PROGRESS REPORT ---
Subjective Progress Note for:: 03/11/18 Subjective:: Feeling slightly better. Dysuria better. However patient hypotensive to systolic of 170s this morning on dopamine drip and tachycardia to 140s. She has been transferred to ICU. Treated with 4 L IV fluid bolus with improvement in blood pressure to 110. No chest pain or shortness of breath. Reason For Visit: INTRACTABLE NAUSEA VOMITING PYELONEPHRITIS, LUPUS Physical Exam Vital Signs: Temp Pulse Resp BP Pulse Ox 100.6 F H 134 H 22 H 91/48 L 94 03/11/18 05:00 03/11/18 08:55 03/11/18 08:44 03/11/18 05:33 03/11/18 08:44 Intake & Output 03/10/18 03/11/18 03/12/18 06:59 06:59 06:59 Intake Total 2508 Balance 2508 Weight 58.9 kg 66.4 kg GEN: NAD, well-developed, well-nourished CV: Tachycardic, NL S1S2 LUNGS: CTA bilaterally ABDOMEN Soft, NT, +BS, no flank tenderness EXTERMITIES: No e/c/c NEURO: Alert, oriented 3, nonfocal Results Laboratory Results: 03/11/18 06:00 03/11/18 06:00 03/11/18 03/11/18 06:00 06:00 WBC 10.0 RBC 3.30 L Hgb 10.1 L Hct 30.7 L MCV 93 MCH 30.5 MCHC 32.8 RDW 15.8 H Plt Count 126 L Seg Neutrophils % 78.2 H Lymphocytes % 11.2 L Monocytes % 10.3 Eosinophils % 0.1 Basophils % 0.2 Absolute Neutrophils 7.8 Absolute Lymphocytes 1.1 Absolute Monocytes 1.0 Absolute Eosinophils 0.0 Absolute Basophils 0.0 Sodium 138.5 Potassium 3.9 Chloride 111 H Carbon Dioxide 18 L Anion Gap 10 BUN 8 Creatinine 0.66 Est GFR ( Amer) > 60 Est GFR (Non-Af Amer) > 60 Glucose 132 H Calcium 7.1 L Impressions: Abdomen X-Ray 03/10/18 02:47 IMPRESSION: No acute findings. Chest X-Ray 03/11/18 00:00 IMPRESSION: Port-A-Cath is unchanged in position with its tip projected at the level of the right atrium. Other findings as noted above Assessment & Plan - Diagnosis (1) Sepsis Qualifiers: Sepsis type: sepsis due to unspecified organism Qualified Code(s): A41.9 - Sepsis, unspecified organism Is this a current diagnosis for this admission?: Yes Plan: This is present on admission, as evidenced by tachycardia of 137 at presentation , respiration rate 25, and suspected urinary source of infection. Patient hypotensive this morning and was transplanted to ICU where he was currently seen by me. -Status post 4 L IV fluid, will continue normal saline at 100 mL/h. -Urine culture growing gram negative rods, will continue Rocephin for now. Follow identification of organism and sensitivity. -Surgery consult for central line placement. (2) Sepsis associated hypotension Is this a current diagnosis for this admission?: Yes Plan: IV fluid, continue antibiotics as in sepsis above. Pressors if needed. (3) Pyelonephritis Is this a current diagnosis for this admission?: Yes Plan: Continue management as in sepsis above. (4) Abdominal pain Is this a current diagnosis for this admission?: Yes Plan: Secondary to pyelonephritis. Improved. (5) Tachycardia Is this a current diagnosis for this admission?: Yes Plan: Secondary to infection/sepsis. Improving. Continue to monitor, continue IV fluids. (6) Lupus (systemic lupus erythematosus) Qualifiers: Is this a current diagnosis for this admission?: Yes Plan: Continue outpatient regimen. (7) Vomiting Qualifiers: Vomiting type: unspecified Vomiting Intractability: non-intractable Nausea presence: with nausea Qualified Code(s): R11.2 - Nausea with vomiting, unspecified Is this a current diagnosis for this admission?: Yes Plan: Improved. Continue to monitor. - Time Total Critical Time (Minutes): 40
[2018-03-11] MEDS: CALCIUM CARBONATE 500 MG TABLET PO SCH (11:48)
[2018-03-11] MEDS: VANCOMYCIN HCL 750 MG in DEXTROSE 5%-WATER 250 ML IV SCH ×2 (13:15→22:45)
[2018-03-11] MEDS: ONDANSETRON 4 MG TAB.RAPDIS PO PRN (19:29)
[2018-03-11] MEDS: NORMAL SALINE 1000 ML 1,000 ML IV PRN (21:13)
[2018-03-11] MEDS: ZOLPIDEM TARTRATE 5 MG TABLET PO SCH (22:44)
[2018-03-12] MEDS: MORPHINE SULFATE 10 MG/ML INJ IV PRN ×5 (02:57→20:17)
[2018-03-12] MEDS: ACETAMINOPHEN 325 MG TABLET PO PRN (02:57)
[2018-03-12] MEDS ORDERED: NORMAL SALINE 1000 ML 2,000 ML IV ONE (03:30)
[2018-03-12] MEDS: VANCOMYCIN HCL 750 MG in DEXTROSE 5%-WATER 250 ML IV SCH ×3 (05:35→21:47)
[2018-03-12] MEDS: NORMAL SALINE 1000 ML 1,000 ML IV PRN ×2 (05:39→20:08)
[2018-03-12] MEDS: CLONIDINE HCL 0.1 MG TABLET PO SCH ×3 (05:40→21:46)
[2018-03-12 06:21] LABS: ABSOLUTE LYMPHOCYTES (AUTO) 0.8 10^3/uL (0.5-4.7); ABSOLUTE MONOCYTES (AUTO) 0.8 10^3/uL (0.1-1.4); BASOPHILS % (AUTO) 0.3 % (0-2); EOSINOPHILS % (AUTO) 0.4 % (0-6); HEMATOCRIT 27.5 % (36.0-47.0); LYMPHOCYTES % (AUTO) 12.3 % (13-45); MEAN CORPUSCULAR HEMOGLOBIN 30.1 pg (27.0-33.4); MEAN CORPUSCULAR HGB CONC 32.6 g/dL (32.0-36.0); MEAN CORPUSCULAR VOLUME 93 fl (80-97); MONOCYTES % (AUTO) 12.6 % (3-13); PLATELET COUNT 113 10^3/uL (150-450); RED BLOOD COUNT 2.97 10^6/uL (3.72-5.28); RED CELL DISTRIBUTION WIDTH 16.6 % (11.5-14.0); SEGMENTED NEUTROPHILS % (AUTO) 74.4 % (42-78); TOTAL CELLS COUNTED % (AUTO) 100 %; WHITE BLOOD COUNT 6.7 10^3/uL (4.0-10.5)
[2018-03-12 06:31] LABS: ANION GAP 6 (5-19); BLOOD UREA NITROGEN 5 mg/dL (7-20); CARBON DIOXIDE 19 mmol/L (22-30); CHLORIDE 117 mmol/L (98-107); GLUCOSE 112 mg/dL (75-110); POTASSIUM 3.6 mmol/L (3.6-5.0); SODIUM 141.9 mmol/L (137-145)
[2018-03-12 06:42] LABS: CALCIUM 6.6 mg/dL (8.4-10.2)
[2018-03-12] MEDS: IPRATROPIUM/ALBUTEROL 0.5-2.5 MG/3 ML AMPUL NEB SCH ×3 (08:29→23:33)
[2018-03-12] MEDS: FONDAPARINUX SODIUM INJ 7.5 MG/0.6 ML DISP.SYRIN SUBCUT SCH (10:00)
[2018-03-12] MEDS: CARBAMAZEPINE SUSP 200 MG/10 ML UDCUP PO SCH ×2 (10:00→22:00)
[2018-03-12] MEDS: METOPROLOL TARTRATE 25 MG TABLET PO SCH (10:11)
[2018-03-12] MEDS: CALCIUM CARBONATE 500 MG TABLET PO SCH (10:12)
[2018-03-12] MEDS: LACTOBACILLUS ACIDOPHILUS 250 MG TAB PO SCH (10:12)
[2018-03-12] MEDS: HYDROXYCHLOROQUINE SULFATE 200 MG TABLET PO SCH (10:12)
[2018-03-12] MEDS: LEVETIRACETAM ORAL SOLN 500 MG/5 ML UDCUP PO SCH ×2 (10:13→21:47)
[2018-03-12] MEDS: DOCUSATE SODIUM 100 MG CAPSULE PO SCH ×2 (10:14→17:06)
[2018-03-12] MEDS: CEFTRIAXONE SODIUM 1,000 MG in DEXTROSE 5%-WATER 50 ML IV SCH (10:14)
[2018-03-12 14:47] LABS: VANCOMYCIN,TROUGH 7.3 ug/mL (5.0-20.0)
--- NOTE | 2018-03-12 16:32 | PDOC PROGRESS REPORT ---
Subjective Progress Note for:: 03/12/18 Subjective:: Feeling slightly better. Dysuria better. Patient was hypotensive with yesterday with systolic BP of 70s on dopamine drip and was tachycardic to 140s. She was treated with IV fluid. Blood pressure is better today, but steady tachycardic to 110s. She feels tired, has poor appetite. No chest pain or shortness of breath. Denies fever or chills at this time. Reason For Visit: INTRACTABLE NAUSEA VOMITING PYELONEPHRITIS, LUPUS Physical Exam Vital Signs: Temp Pulse Resp BP Pulse Ox 98.1 F 110 H 29 H 120/90 H 98 03/12/18 12:00 03/12/18 15:20 03/12/18 15:20 03/12/18 14:01 03/12/18 15:20 Intake & Output 03/11/18 03/12/18 03/13/18 06:59 06:59 06:59 Intake Total 2508 8004 218 Output Total 850 1700 Balance 2508 7796 -1482 Weight 66.4 kg 67 kg GEN: NAD, well-developed, well-nourished CV: Tachycardic, NL S1S2 LUNGS: CTA bilaterally ABDOMEN Soft, NT, +BS, no flank tenderness EXTERMITIES: No e/c/c NEURO: Alert, oriented 3, nonfocal Results Laboratory Results: 03/12/18 05:50 03/12/18 05:50 03/12/18 03/12/18 03/12/18 05:50 05:50 05:50 WBC 6.7 RBC 2.97 L Hgb 9.0 L Hct 27.5 L MCV 93 MCH 30.1 MCHC 32.6 RDW 16.6 H Plt Count 113 L Seg Neutrophils % 74.4 Lymphocytes % 12.3 L Monocytes % 12.6 Eosinophils % 0.4 Basophils % 0.3 Absolute Neutrophils 5.0 Absolute Lymphocytes 0.8 Absolute Monocytes 0.8 Absolute Eosinophils 0.0 Absolute Basophils 0.0 Sodium 141.9 Potassium 3.6 Chloride 117 H Carbon Dioxide 19 L Anion Gap 6 BUN 5 L Creatinine 0.35 L Est GFR ( Amer) > 60 Est GFR (Non-Af Amer) > 60 Glucose 112 H Calcium 6.6 L* Albumin 2.2 L PTH Intact 03/12/18 08:20 WBC RBC Hgb Hct MCV MCH MCHC RDW Plt Count Seg Neutrophils % Lymphocytes % Monocytes % Eosinophils % Basophils % Absolute Neutrophils Absolute Lymphocytes Absolute Monocytes Absolute Eosinophils Absolute Basophils Sodium Potassium Chloride Carbon Dioxide Anion Gap BUN Creatinine Est GFR ( Amer) Est GFR (Non-Af Amer) Glucose Calcium Albumin PTH Intact 173.6 H Impressions: Abdomen X-Ray 03/10/18 02:47 IMPRESSION: No acute findings. Chest X-Ray 03/11/18 00:00 IMPRESSION: Port-A-Cath is unchanged in position with its tip projected at the level of the right atrium. Other findings as noted above Assessment & Plan - Diagnosis (1) Sepsis Qualifiers: Sepsis type: sepsis due to unspecified organism Qualified Code(s): A41.9 - Sepsis, unspecified organism Is this a current diagnosis for this admission?: Yes Plan: This was present on admission, as evidenced by tachycardia of 137 at presentation, respiration rate 25, and suspected urinary source of infection. Patient's hypotension better, but still tachycardic. -Will continue normal saline at 100 mL/h. -Urine culture growing Proteus mirabilis sensitive to ceftriaxone, will continue same antibiotics for now. -Discontinue vancomycin (2) Sepsis associated hypotension Is this a current diagnosis for this admission?: Yes Plan: Improved. Continue IV fluid, continue antibiotics as in sepsis above. Pressors if needed. (3) Pyelonephritis Is this a current diagnosis for this admission?: Yes Plan: Continue management as in sepsis above. (4) Abdominal pain Is this a current diagnosis for this admission?: Yes Plan: Secondary to pyelonephritis. Improved. (5) Tachycardia Is this a current diagnosis for this admission?: Yes Plan: Secondary to infection/sepsis. Improving. Continue to monitor, continue IV fluids. (6) Lupus (systemic lupus erythematosus) Qualifiers: Is this a current diagnosis for this admission?: Yes Plan: Continue outpatient regimen. (7) Vomiting Qualifiers: Vomiting type: unspecified Vomiting Intractability: non-intractable Nausea presence: with nausea Qualified Code(s): R11.2 - Nausea with vomiting, unspecified Is this a current diagnosis for this admission?: Yes Plan: Improved. Continue antiemetics and to monitor. (8) Hypocalcemia Is this a current diagnosis for this admission?: Yes Plan: Calcium level low, which corrected calcium 8.04. Check intact PTH level and vitamin D 25-hydroxy Will treat with calcium carbonate/D3 2 bid
[2018-03-12] MEDS: CALCIUM CARBONATE 250 MG/VITAMIN D3 125 UNIT TABLET PO SCH (17:51)
[2018-03-12] MEDS ORDERED: IPRATROPIUM/ALBUTEROL 0.5-2.5 MG/3 ML AMPUL NEB PRN (21:04)
[2018-03-12] MEDS: ZOLPIDEM TARTRATE 5 MG TABLET PO SCH (21:45)
[2018-03-13] MEDS: ACETAMINOPHEN 325 MG TABLET PO PRN
[2018-03-13] MEDS: MORPHINE SULFATE 10 MG/ML INJ IV PRN ×5 (00:17→22:46)
[2018-03-13 04:51] LABS: ABSOLUTE EOSINOPHILS # (AUTO) 0.1 10^3/uL (0.0-0.6); ABSOLUTE LYMPHOCYTES (AUTO) 0.8 10^3/uL (0.5-4.7); ABSOLUTE MONOCYTES (AUTO) 0.8 10^3/uL (0.1-1.4); ABSOLUTE NEUT (AUTO) 4.5 10^3/uL (1.7-8.2); BASOPHILS % (AUTO) 0.3 % (0-2); EOSINOPHILS % (AUTO) 1.6 % (0-6); HEMATOCRIT 27.3 % (36.0-47.0); LYMPHOCYTES % (AUTO) 12.9 % (13-45); MEAN CORPUSCULAR HEMOGLOBIN 30.1 pg (27.0-33.4); MEAN CORPUSCULAR HGB CONC 32.9 g/dL (32.0-36.0); MEAN CORPUSCULAR VOLUME 92 fl (80-97); MONOCYTES % (AUTO) 12.5 % (3-13); PLATELET COUNT 151 10^3/uL (150-450); RED BLOOD COUNT 2.98 10^6/uL (3.72-5.28); RED CELL DISTRIBUTION WIDTH 16.1 % (11.5-14.0); SEGMENTED NEUTROPHILS % (AUTO) 72.7 % (42-78); TOTAL CELLS COUNTED % (AUTO) 100 %; WHITE BLOOD COUNT 6.2 10^3/uL (4.0-10.5)
[2018-03-13 05:15] LABS: ANION GAP 7 (5-19); BLOOD UREA NITROGEN 2 mg/dL (7-20); CALCIUM 7.7 mg/dL (8.4-10.2); CARBON DIOXIDE 25 mmol/L (22-30); CHLORIDE 111 mmol/L (98-107); GLUCOSE 103 mg/dL (75-110); POTASSIUM 3.6 mmol/L (3.6-5.0); SODIUM 143.4 mmol/L (137-145)
[2018-03-13] MEDS: CLONIDINE HCL 0.1 MG TABLET PO SCH ×3 (05:32→21:39)
[2018-03-13] MEDS: VANCOMYCIN HCL 750 MG in DEXTROSE 5%-WATER 250 ML IV SCH (05:33)
[2018-03-13] MEDS: IPRATROPIUM/ALBUTEROL 0.5-2.5 MG/3 ML AMPUL NEB SCH ×3 (08:18→23:17)
[2018-03-13] MEDS: CEFTRIAXONE SODIUM 1,000 MG in DEXTROSE 5%-WATER 50 ML IV SCH (09:44)
[2018-03-13] MEDS: CALCIUM CARBONATE 250 MG/VITAMIN D3 125 UNIT TABLET PO SCH ×2 (09:45→17:24)
[2018-03-13] MEDS: LEVETIRACETAM ORAL SOLN 500 MG/5 ML UDCUP PO SCH ×2 (09:45→21:40)
[2018-03-13] MEDS: LACTOBACILLUS ACIDOPHILUS 250 MG TAB PO SCH (09:46)
[2018-03-13] MEDS: METOPROLOL TARTRATE 25 MG TABLET PO SCH ×2 (09:46→17:25)
[2018-03-13] MEDS: CALCIUM CARBONATE 500 MG TABLET PO SCH (09:47)
[2018-03-13] MEDS: HYDROXYCHLOROQUINE SULFATE 200 MG TABLET PO SCH (09:47)
[2018-03-13] MEDS: NORMAL SALINE 1000 ML 1,000 ML IV PRN ×2 (09:48→23:21)
[2018-03-13] MEDS: DOCUSATE SODIUM 100 MG CAPSULE PO SCH ×2 (09:57→17:26)
[2018-03-13] MEDS: FONDAPARINUX SODIUM INJ 7.5 MG/0.6 ML DISP.SYRIN SUBCUT SCH (10:00)
[2018-03-13] MEDS: CARBAMAZEPINE SUSP 200 MG/10 ML UDCUP PO SCH ×2 (10:00→21:40)
--- NOTE | 2018-03-13 11:58 | PDOC PROGRESS REPORT ---
Subjective Progress Note for:: 03/13/18 Subjective:: 2 year old female with a past medical history of lupus on CellCept, anti- phospholipid antibody on Arixtra, recurrent UTI, who presented with 5 days of abdominal pain, n/v and being treated for pyelonephritis and sepsis. Doing better today. Dysuria and abdominal pain much better. Patient was hypotensive 03/11/18 with systolic BP in 70s on dopamine drip and was tachycardic to 140s. She was treated with IV fluid and transferred to ICU. Reports appetite is getting better. No chest pain or shortness of breath. Denies fever or chills at this time. Reason For Visit: INTRACTABLE NAUSEA VOMITING PYELONEPHRITIS, LUPUS Physical Exam Vital Signs: Temp Pulse Resp BP Pulse Ox 97.7 F 107 H 30 H 114/74 96 03/13/18 10:36 03/13/18 10:36 03/13/18 10:36 03/13/18 10:36 03/13/18 10:36 Intake & Output 03/12/18 03/13/18 03/14/18 06:59 06:59 06:59 Intake Total 8004 3319 450 Output Total 850 3150 600 Balance 7154 169 -150 Weight 67 kg 66.1 kg GEN: NAD, well-developed, well-nourished CV: Tachycardic, NL S1S2 LUNGS: CTA bilaterally ABDOMEN Soft, NT, +BS, no flank tenderness EXTERMITIES: No e/c/c NEURO: Alert, oriented 3, nonfocal Results Laboratory Results: 03/13/18 04:30 03/13/18 04:30 03/13/18 03/13/18 03/13/18 04:30 04:30 04:30 WBC 6.2 RBC 2.98 L Hgb 9.0 L Hct 27.3 L MCV 92 MCH 30.1 MCHC 32.9 RDW 16.1 H Plt Count 151 Seg Neutrophils % 72.7 Lymphocytes % 12.9 L Monocytes % 12.5 Eosinophils % 1.6 Basophils % 0.3 Absolute Neutrophils 4.5 Absolute Lymphocytes 0.8 Absolute Monocytes 0.8 Absolute Eosinophils 0.1 Absolute Basophils 0.0 Sodium 143.4 Potassium 3.6 Chloride 111 H Carbon Dioxide 25 Anion Gap 7 BUN 2 L Creatinine 0.39 L Est GFR ( Amer) > 60 Est GFR (Non-Af Amer) > 60 Glucose 103 Calcium 7.7 L Ionized Calcium Yogi 0.97 L Magnesium 1.7 Impressions: Abdomen X-Ray 03/10/18 02:47 IMPRESSION: No acute findings. Chest X-Ray 03/11/18 00:00 IMPRESSION: Port-A-Cath is unchanged in position with its tip projected at the level of the right atrium. Other findings as noted above Assessment & Plan - Diagnosis (1) Sepsis Qualifiers: Sepsis type: sepsis due to unspecified organism Qualified Code(s): A41.9 - Sepsis, unspecified organism Is this a current diagnosis for this admission?: Yes Plan: This was present on admission, as evidenced by tachycardia of 137 at presentation, respiration rate 25, and suspected urinary source of infection. Patient's hypotension better, tachycardia improved. -Will continue normal saline at 100 mL/h. -Urine culture growing Proteus mirabilis sensitive to ceftriaxone, will continue same antibiotics for now. -Discontinued vancomycin 03/12/18 -Stable enough to transfer out of ICU today. (2) Sepsis associated hypotension Is this a current diagnosis for this admission?: Yes Plan: Improved. Continue IV fluid, continue antibiotics as in sepsis above. Patient to be transferred out of ICU today. (3) Pyelonephritis Is this a current diagnosis for this admission?: Yes Plan: Continue management as in sepsis above. (4) Abdominal pain Is this a current diagnosis for this admission?: Yes Plan: Secondary to pyelonephritis. Improved. (5) Tachycardia Is this a current diagnosis for this admission?: Yes Plan: Secondary to infection/sepsis. Improving. Continue to monitor, continue IV fluids. Also, metoprolol tartrate 25 mg daily. Will change to twice daily. (6) Lupus (systemic lupus erythematosus) Qualifiers: Is this a current diagnosis for this admission?: Yes Plan: Continue outpatient regimen. (7) Vomiting Qualifiers: Vomiting type: unspecified Vomiting Intractability: non-intractable Nausea presence: with nausea Qualified Code(s): R11.2 - Nausea with vomiting, unspecified Is this a current diagnosis for this admission?: Yes Plan: Improved. Continue antiemetics as needed and to monitor patient. (8) Hypocalcemia Is this a current diagnosis for this admission?: Yes Plan: Calcium level improving today on cancion with Vit D. Intact PTH level elevated, and vitamin D 1, 25-hydroxyl decreased Will continue on calcium carbonate/D3 2 bid - Time Total Critical Time (Minutes): 35
[2018-03-13] MEDS ORDERED: VANCOMYCIN HCL 1,000 MG in DEXTROSE 5%-WATER 250 ML IV SCH (12:00)
[2018-03-13] MEDS: PROMETHAZINE HCL 25 MG TABLET PO PRN (12:20)
[2018-03-13] MEDS: ZOLPIDEM TARTRATE 5 MG TABLET PO SCH (21:39)
[2018-03-13] MEDS: ONDANSETRON 4 MG TAB.RAPDIS PO PRN (21:50)
[2018-03-14] MEDS: MORPHINE SULFATE 10 MG/ML INJ IV PRN (02:48)
[2018-03-14 04:45] LABS: ABSOLUTE EOSINOPHILS # (AUTO) 0.2 10^3/uL (0.0-0.6); ABSOLUTE LYMPHOCYTES (AUTO) 0.7 10^3/uL (0.5-4.7); ABSOLUTE MONOCYTES (AUTO) 0.6 10^3/uL (0.1-1.4); ABSOLUTE NEUT (AUTO) 3.1 10^3/uL (1.7-8.2); BASOPHILS % (AUTO) 0.7 % (0-2); EOSINOPHILS % (AUTO) 4.1 % (0-6); HEMATOCRIT 27.4 % (36.0-47.0); HEMOGLOBIN 8.8 g/dL (12.0-15.5); LYMPHOCYTES % (AUTO) 15.6 % (13-45); MEAN CORPUSCULAR HEMOGLOBIN 29.7 pg (27.0-33.4); MEAN CORPUSCULAR HGB CONC 32.3 g/dL (32.0-36.0); MEAN CORPUSCULAR VOLUME 92 fl (80-97); MONOCYTES % (AUTO) 13.4 % (3-13); PLATELET COUNT 181 10^3/uL (150-450); RED BLOOD COUNT 2.97 10^6/uL (3.72-5.28); RED CELL DISTRIBUTION WIDTH 16.1 % (11.5-14.0); SEGMENTED NEUTROPHILS % (AUTO) 66.2 % (42-78); TOTAL CELLS COUNTED % (AUTO) 100 %; WHITE BLOOD COUNT 4.6 10^3/uL (4.0-10.5)
[2018-03-14 05:17] LABS: ANION GAP 8 (5-19); BLOOD UREA NITROGEN 2 mg/dL (7-20); CALCIUM 7.9 mg/dL (8.4-10.2); CARBON DIOXIDE 24 mmol/L (22-30); CHLORIDE 113 mmol/L (98-107); GLUCOSE 104 mg/dL (75-110); POTASSIUM 3.7 mmol/L (3.6-5.0); SODIUM 144.8 mmol/L (137-145)
[2018-03-14] MEDS: CLONIDINE HCL 0.1 MG TABLET PO SCH ×2 (06:41→21:02)
[2018-03-14] MEDS: IPRATROPIUM/ALBUTEROL 0.5-2.5 MG/3 ML AMPUL NEB SCH ×2 (08:22→16:26)
[2018-03-14] MEDS ORDERED: POTASSIUM CHLORIDE 20 MEQ/15 ML UDCUP PO ONE (09:30)
[2018-03-14] MEDS: LACTOBACILLUS ACIDOPHILUS 250 MG TAB PO SCH (09:48)
[2018-03-14] MEDS: CALCIUM CARBONATE 250 MG/VITAMIN D3 125 UNIT TABLET PO SCH ×2 (09:49→18:33)
[2018-03-14] MEDS: LEVETIRACETAM ORAL SOLN 500 MG/5 ML UDCUP PO SCH ×2 (09:50→21:01)
[2018-03-14] MEDS: HYDROXYCHLOROQUINE SULFATE 200 MG TABLET PO SCH (09:50)
[2018-03-14] MEDS: METOPROLOL TARTRATE 25 MG TABLET PO SCH ×2 (09:50→18:33)
[2018-03-14] MEDS: CARBAMAZEPINE SUSP 200 MG/10 ML UDCUP PO SCH ×2 (09:51→21:00)
[2018-03-14] MEDS: CEFTRIAXONE SODIUM 1,000 MG in DEXTROSE 5%-WATER 50 ML IV SCH (09:53)
[2018-03-14] MEDS: NORMAL SALINE 1000 ML 1,000 ML IV PRN (09:57)
[2018-03-14] MEDS: FONDAPARINUX SODIUM INJ 7.5 MG/0.6 ML DISP.SYRIN SUBCUT SCH (09:58)
[2018-03-14] MEDS: DOCUSATE SODIUM 100 MG CAPSULE PO SCH ×2 (10:00→18:33)
[2018-03-14] MEDS ORDERED: CLONIDINE HCL 0.1 MG TABLET PO SCH ×2 (10:11→14:00)
[2018-03-14] MEDS: FENTANYL CITRATE INJ/PF 100 MCG/2 ML AMPUL IV PRN ×3 (10:19→20:22)
[2018-03-14 10:20] LABS: PHOSPHORUS 2.6 mg/dL (2.5-4.5)
[2018-03-14] MEDS: OXYCODONE HCL IR 5 MG TABLET PO PRN ×2 (14:12→22:34)
--- NOTE | 2018-03-14 15:35 | PDOC PROGRESS REPORT ---
Subjective Progress Note for:: 03/14/18 Subjective:: 22 yr old female with history of Lupus on Cellcept Antiphospholipid antibody syndrome on Arixtra Asthma Epilepsy Recurrent UTIs She presented to the hospital on March 10 with a 5 day history of Abdominal pain with nausea vomiting and dysuria. She was diagnosed with pyuria and started on antibiotics. She was noted to be hypotensive and was started on a dopamine drip and transferred to the intensive care unit. Blood pressures have improved. Dopamine drip has been weaned off. She feels better today. Nausea is improving. Reason For Visit: INTRACTABLE NAUSEA VOMITING PYELONEPHRITIS, LUPUS Physical Exam Vital Signs: Temp Pulse Resp BP Pulse Ox 98.0 F 99 21 H 126/96 H 97 03/14/18 11:23 03/14/18 08:22 03/14/18 13:00 03/14/18 11:23 03/14/18 13:00 Intake & Output 03/13/18 03/14/18 03/15/18 06:59 06:59 06:59 Intake Total 3319 3056 Output Total 3150 1601 Balance 169 1455 Weight 66.1 kg 64.4 kg General appearance: PRESENT: no acute distress Head exam: PRESENT: normocephalic Mouth exam: PRESENT: moist Neck exam: ABSENT: tracheal deviation Respiratory exam: PRESENT: symmetrical, unlabored. ABSENT: wheezes Cardiovascular exam: PRESENT: RRR GI/Abdominal exam: PRESENT: normal bowel sounds, soft. ABSENT: tenderness Rectal exam: PRESENT: deferred Neurological exam: PRESENT: alert, awake, oriented to person, oriented to place Results Laboratory Results: 03/14/18 04:12 03/14/18 04:12 03/14/18 03/14/18 03/14/18 04:12 04:12 04:12 WBC 4.6 RBC 2.97 L Hgb 8.8 L Hct 27.4 L MCV 92 MCH 29.7 MCHC 32.3 RDW 16.1 H Plt Count 181 Seg Neutrophils % 66.2 Lymphocytes % 15.6 Monocytes % 13.4 H Eosinophils % 4.1 Basophils % 0.7 Absolute Neutrophils 3.1 Absolute Lymphocytes 0.7 Absolute Monocytes 0.6 Absolute Eosinophils 0.2 Absolute Basophils 0.0 Sodium 144.8 Potassium 3.7 Chloride 113 H Carbon Dioxide 24 Anion Gap 8 BUN 2 L Creatinine 0.37 L Est GFR ( Amer) > 60 Est GFR (Non-Af Amer) > 60 Glucose 104 Calcium 7.9 L Phosphorus 2.6 Magnesium 1.8 Impressions: Abdomen X-Ray 03/10/18 02:47 IMPRESSION: No acute findings. Chest X-Ray 03/11/18 00:00 IMPRESSION: Port-A-Cath is unchanged in position with its tip projected at the level of the right atrium. Other findings as noted above Assessment & Plan - Diagnosis (1) Pyelonephritis Is this a current diagnosis for this admission?: Yes Plan: Urine culture positive for Proteus. Day 5 of Rocephin. Blood cultures have been negative. (2) Sepsis associated hypotension Is this a current diagnosis for this admission?: Yes Plan: Improving. (3) Vomiting Qualifiers: Vomiting type: unspecified Vomiting Intractability: non-intractable Nausea presence: with nausea Qualified Code(s): R11.2 - Nausea with vomiting, unspecified Is this a current diagnosis for this admission?: Yes Plan: Improving. Antiemetics as needed. (4) Chronic anticoagulation Is this a current diagnosis for this admission?: Yes Plan: Continue Arixtra. (5) DVT prophylaxis Is this a current diagnosis for this admission?: Yes Plan: As above. (6) Lupus Qualifiers: Lupus erythematosus form: unspecified Qualified Code(s): L93.0 - Discoid lupus erythematosus Is this a current diagnosis for this admission?: Yes Plan: Continue outpatient medications including Plaquenil and CellCept. (7) Hypertension Is this a current diagnosis for this admission?: Yes Plan: Blood pressures have been running low. They are not improving. Clonidine dose adjusted with hold parameters. Continue metoprolol. (8) Epilepsy Is this a current diagnosis for this admission?: Yes Plan: Continue Keppra and Tegretol. (9) Chronic pain Qualifiers: Chronic pain type: chronic pain syndrome Qualified Code(s): G89.4 - Chronic pain syndrome Is this a current diagnosis for this admission?: Yes Plan: Continue outpatient medications. - Time Time Spent with patient: 25-34 minutes
[2018-03-14] MEDS ORDERED: FENTANYL CITRATE INJ/PF 100 MCG/2 ML AMPUL IV ONE (16:00)
[2018-03-14] MEDS: ZOLPIDEM TARTRATE 5 MG TABLET PO SCH (21:02)
[2018-03-15] MEDS: IPRATROPIUM/ALBUTEROL 0.5-2.5 MG/3 ML AMPUL NEB SCH ×2 (00:33→08:16)
[2018-03-15] MEDS: OXYCODONE HCL IR 5 MG TABLET PO PRN (02:27)
[2018-03-15] MEDS: FENTANYL CITRATE INJ/PF 100 MCG/2 ML AMPUL IV PRN ×2 (02:32→08:56)
[2018-03-15 04:14] LABS: HEMATOCRIT 28.6 % (36.0-47.0); HEMOGLOBIN 9.4 g/dL (12.0-15.5); MEAN CORPUSCULAR HEMOGLOBIN 30.1 pg (27.0-33.4); MEAN CORPUSCULAR HGB CONC 32.8 g/dL (32.0-36.0); MEAN CORPUSCULAR VOLUME 92 fl (80-97); PLATELET COUNT 223 10^3/uL (150-450); RED BLOOD COUNT 3.13 10^6/uL (3.72-5.28); WHITE BLOOD COUNT 5.2 10^3/uL (4.0-10.5)
[2018-03-15 04:26] LABS: ANION GAP 9 (5-19); BLOOD UREA NITROGEN 2 mg/dL (7-20); CALCIUM 8.2 mg/dL (8.4-10.2); CARBON DIOXIDE 23 mmol/L (22-30); CHLORIDE 115 mmol/L (98-107); GLUCOSE 106 mg/dL (75-110); PHOSPHORUS 2.3 mg/dL (2.5-4.5); POTASSIUM 3.6 mmol/L (3.6-5.0); SODIUM 146.9 mmol/L (137-145)
[2018-03-15] MEDS: CLONIDINE HCL 0.1 MG TABLET PO SCH ×2 (05:29→13:22)
[2018-03-15] MEDS ORDERED: MAGNESIUM OXIDE 400 MG TABLET PO SCH (10:00)
[2018-03-15] MEDS ORDERED: CIPROFLOXACIN HCL 500 MG TABLET PO SCH (10:00)
[2018-03-15] MEDS: LEVETIRACETAM ORAL SOLN 500 MG/5 ML UDCUP PO SCH (10:17)
[2018-03-15] MEDS: METOPROLOL TARTRATE 25 MG TABLET PO SCH (10:18)
[2018-03-15] MEDS: CALCIUM CARBONATE 250 MG/VITAMIN D3 125 UNIT TABLET PO SCH (10:20)
[2018-03-15] MEDS: LACTOBACILLUS ACIDOPHILUS 250 MG TAB PO SCH (10:20)
[2018-03-15] MEDS: DOCUSATE SODIUM 100 MG CAPSULE PO SCH (10:21)
[2018-03-15] MEDS: CARBAMAZEPINE SUSP 200 MG/10 ML UDCUP PO SCH (10:22)
[2018-03-15] MEDS: FONDAPARINUX SODIUM INJ 7.5 MG/0.6 ML DISP.SYRIN SUBCUT SCH (10:22)
[2018-03-15] MEDS: HYDROXYCHLOROQUINE SULFATE 200 MG TABLET PO SCH (10:22)
--- NOTE | 2018-03-15 11:02 | PDOC DISCHARGE SUMMARY ---
General - Admit/Disc Date/PCP Admission Date/Primary Care Provider: 03/10/18 02:39 BEBETO CANSECO, Discharge Date: 03/15/18 - Discharge Diagnosis (1) Pyelonephritis Is this a current diagnosis for this admission?: Yes (2) Sepsis associated hypotension Is this a current diagnosis for this admission?: Yes (3) Vomiting Is this a current diagnosis for this admission?: Yes (4) Chronic anticoagulation Is this a current diagnosis for this admission?: Yes (5) DVT prophylaxis Is this a current diagnosis for this admission?: Yes (6) Lupus Is this a current diagnosis for this admission?: Yes (7) Hypertension Is this a current diagnosis for this admission?: Yes (8) Epilepsy Is this a current diagnosis for this admission?: Yes (9) Chronic pain Is this a current diagnosis for this admission?: Yes (10) UTI (urinary tract infection) Is this a current diagnosis for this admission?: Yes Summary: Urine culture grew E coli and Proteus. Blood cultures no growth x 5 days - Additional Information Resuscitation Status: Full Code Discharge Activity: Activity As Tolerated Prescriptions: Ciprofloxacin HCl [Cipro 500 mg Tablet] 500 mg PO Q12 5 Days #10 tab Magnesium Oxide [Mag-Ox 400 mg Tablet] 800 mg PO DAILY 30 Days #60 tablet Home Medications: Alprazolam [Xanax] 1 mg PO BIDP PRN 10/23/17 Clonidine HCl [Catapres 0.3 mg Tablet] 0.3 mg PO Q12 10/23/17 Cyclobenzaprine HCl [Flexeril 10 mg Tablet] 5 mg PO TIDP PRN 10/23/17 Ondansetron [Zofran Odt] 8 mg PO Q6HP PRN 10/23/17 Zolpidem Tartrate [Ambien] 10 mg PO QHS 10/23/17 Fondaparinux Sodium [Arixtra Inj 7.5 mg/0.6 ml Disp. Syrin] 7.5 mg SUBCUT DAILY 11/21/17 Hydroxychloroquine Sulfate [Plaquenil 200 mg Tablet] 200 mg PO DAILY 11/21/17 Oxycodone HCl/Acetaminophen [Percocet 10-325 mg Tablet] 1 each PO Q8HP PRN 11/21 Levetiracetam 15 ml PO Q12 11/22/17 Mycophenolate Mofetil 7.5 ml PO Q12 11/22/17 Albuterol Sulfate [Proair HFA] 2 puff IH Q4HP PRN 03/10/18 Calcium Carbonate [Calcium] 500 mg PO DAILY 03/10/18 Carbamazepine [Tegretol Susp 200 mg/10 ml Udcup] 200 mg PO Q12 03/10/18 Ibuprofen [Motrin 600 mg Tablet] 600 mg PO BIDP PRN 03/10/18 Lactobacillus Acidophilus [Florajen] 460 mg PO DAILY 03/10/18 Metoprolol Tartrate [Lopressor 25 mg Tablet] 25 mg PO DAILY 03/10/18 Tizanidine HCl [Zanaflex 4 mg Tablet] 4 mg PO Q8HP PRN 03/10/18 Ciprofloxacin HCl [Cipro 500 mg Tablet] 500 mg PO Q12 5 Days #10 tab 03/15/18 Docusate Sodium [Colace 100 mg Capsule] 100 mg PO BID capsule 03/15/18 Magnesium Oxide [Mag-Ox 400 mg Tablet] 800 mg PO DAILY 30 Days #60 tablet History of Present Illness History of Present Illness: JOSE DUMONT is a 22 year old female with Lupus on Cellcept Antiphospholipid antibody syndrome on Arixtra Asthma Epilepsy Recurrent UTIs She presented to the hospital on March 10 with a 5 day history of Abdominal pain with nausea vomiting and dysuria. She was diagnosed with pyuria and started on antibiotics. She was noted to be septic and hypotensive and was started on a dopamine drip and transferred to the intensive care unit. Blood pressures improved and Dopamine drip has been weaned off. Urine culture grew E coli and Proteus. Blood cultures no growth x 5 days. The patient feels much better. Nausea and vomiting have resolved. She has been able to tolerate oral antibiotics. She is stable for discharge home and follow-up with her primary care physician in 1 week. Hospital Course Hospital Course: As above Physical Exam Vital Signs: Temp Pulse Resp BP Pulse Ox 98.9 F 90 18 128/92 H 98 03/15/18 07:54 03/15/18 08:19 03/15/18 08:19 03/15/18 07:54 03/15/18 08:19 Intake & Output 03/14/18 03/15/18 03/16/18 06:59 06:59 06:59 Intake Total 3056 3189 425 Output Total 1601 1400 Balance 1455 1789 425 Weight 64.4 kg 64.4 kg General appearance: PRESENT: no acute distress Respiratory exam: PRESENT: symmetrical, unlabored. ABSENT: wheezes Rectal exam: PRESENT: deferred Neurological exam: PRESENT: alert, awake, oriented to person, oriented to place Psychiatric exam: PRESENT: appropriate affect Results Laboratory Results: 03/15/18 04:00 03/15/18 04:00 03/15/18 03/15/18 04:00 04:00 WBC 5.2 RBC 3.13 L Hgb 9.4 L Hct 28.6 L MCV 92 MCH 30.1 MCHC 32.8 RDW 16.0 H Plt Count 223 Sodium 146.9 H Potassium 3.6 Chloride 115 H Carbon Dioxide 23 Anion Gap 9 BUN 2 L Creatinine 0.42 L Est GFR ( Amer) > 60 Est GFR (Non-Af Amer) > 60 Glucose 106 Calcium 8.2 L Phosphorus 2.3 L Magnesium 1.7 Impressions: Abdomen X-Ray 03/10/18 02:47 IMPRESSION: No acute findings. Chest X-Ray 03/11/18 00:00 IMPRESSION: Port-A-Cath is unchanged in position with its tip projected at the level of the right atrium. Other findings as noted above Qualifiers - * PATIENT BEING DISCHARGED WITH ANY OF THE FOLLOWING DIAGNOSIS: No Plan Time Spent: Greater than 30 Minutes
[2018-03-15 13:01] VITALS: BP 114/74
== END 2018-03-15 14:09 | disposition home or self-care (01) | DRG 872 ==
LOC: ER 19:54 → EH 03-10 02:39 → 4W 03-10 03:59 → 3N 03-11 06:15 → ICU 03-11 07:50 → 3W 03-15 01:30
PROVIDERS: ADMIT Internal Medicine; ATTEND Internal Medicine
PROC: 02H633Z Insertion of Infusion Device into Right Atrium, Percutaneous Approach (ICD-10-PCS; principal; 2018-03-11)
PROC: B244ZZZ Ultrasonography of Right Heart (ICD-10-PCS; 2018-03-11)
DX: A41.9 Sepsis, unspecified organism (principal); N10 Acute pyelonephritis; M32.9 Systemic lupus erythematosus, unspecified; G40.909 Epilepsy, unspecified, not intractable, without status epilepticus; I10 Essential (primary) hypertension; J45.909 Unspecified asthma, uncomplicated; G89.4 Chronic pain syndrome; K21.9 Gastro-esophageal reflux disease without esophagitis; B96.20 Unspecified Escherichia coli [E. coli] as the cause of diseases classified elsewhere; E83.51 Hypocalcemia; B96.4 Proteus (mirabilis) (morganii) as the cause of diseases classified elsewhere; M19.90 Unspecified osteoarthritis, unspecified site; D75.82 Heparin induced thrombocytopenia (HIT); Z82.49 Family history of ischemic heart disease and other diseases of the circulatory system; Z91.013 Allergy to seafood; Z86.718 Personal history of other venous thrombosis and embolism; Z86.711 Personal history of pulmonary embolism; Z79.899 Other long term (current) drug therapy; Z88.6 Allergy status to analgesic agent; Z88.8 Allergy status to other drugs, medicaments and biological substances; Z87.440 Personal history of urinary (tract) infections
CPT/HCPCS: 36415; 71045; 71275; 74019; 80048; 80053; 80202; 80307; 81001; 82040; 82330; 82533; 82652; 82803; 83036; 83605; 83690; 83735; 83970; 84100; 84484; 84703; 85025; 85027; 85610; 85652; 87040; 87086; 87088; 87186; 93005; 93010; 94640; 94799; 96361; 96365; 96367; 96372; 96375; 99291; C1751; J0500; J0696; J1265; J1642; J1652; J1720; J2270; J2765; J3010; J3370; J3490; J7030; J7060; J7620; S0119; S0164

== ENCOUNTER → 2018-06-09 | Outpatient (CLI) | payer MEDICARE, MEDICAID ==
[2018-06-09 11:01] LABS: ABSOLUTE EOSINOPHILS # (AUTO) 0.1 10^3/uL (0.0-0.6); ABSOLUTE LYMPHOCYTES (AUTO) 1.5 10^3/uL (0.5-4.7); ABSOLUTE MONOCYTES (AUTO) 0.4 10^3/uL (0.1-1.4); ABSOLUTE NEUT (AUTO) 3.1 10^3/uL (1.7-8.2); BASOPHILS % (AUTO) 0.7 % (0-2); HEMATOCRIT 34.8 % (36.0-47.0); HEMOGLOBIN 11.2 g/dL (12.0-15.5); LYMPHOCYTES % (AUTO) 30.4 % (13-45); MEAN CORPUSCULAR HEMOGLOBIN 29.5 pg (27.0-33.4); MEAN CORPUSCULAR HGB CONC 32.3 g/dL (32.0-36.0); MEAN CORPUSCULAR VOLUME 92 fl (80-97); MONOCYTES % (AUTO) 6.9 % (3-13); PLATELET COUNT 196 10^3/uL (150-450); RED CELL DISTRIBUTION WIDTH 13.1 % (11.5-14.0); TOTAL CELLS COUNTED % (AUTO) 100 %; WHITE BLOOD COUNT 5.1 10^3/uL (4.0-10.5)
[2018-06-09 11:26] LABS: ALANINE AMINOTRANSFERASE 12 U/L (9-52); ALBUMIN 4.4 g/dL (3.5-5.0); ALKALINE PHOSPHATASE 158 U/L (38-126); ANION GAP 15 (5-19); ASPARTATE AMINO TRANSFERASE 21 U/L (14-36); BILIRUBIN,DIRECT 0.3 mg/dL (0.0-0.4); BILIRUBIN,TOTAL 0.6 mg/dL (0.2-1.3); BLOOD UREA NITROGEN 8 mg/dL (7-20); CARBON DIOXIDE 18 mmol/L (22-30); CHLORIDE 109 mmol/L (98-107); GLUCOSE 98 mg/dL (75-110); POTASSIUM 3.7 mmol/L (3.6-5.0); SODIUM 142.2 mmol/L (137-145); TOTAL PROTEIN 10.8 g/dL (6.3-8.2)
== END ==
LOC: OD 09:53
PROVIDERS: ATTEND Internal Medicine
DX: D64.9 Anemia, unspecified (principal); R10.0 Acute abdomen
CPT/HCPCS: 36415; 80053; 84443; 85025

== ENCOUNTER 2018-11-03 06:00 | Inpatient (IN) | payer MEDICARE, MEDICAID ==
[2018-11-03] MEDS ORDERED: HYDROMORPHONE HCL INJ/PF 2 MG/ML AMPULE IV ONE ×3 (06:40→10:18)
--- NOTE | 2018-11-03 07:11 | ER Document Report ---
ED General - General Chief Complaint: Pain All Over Stated Complaint: ALL OVER BODY PAIN Time Seen by Provider: 11/03/18 06:40 Primary Care Provider: WENDY MONROY MD [Primary Care Provider] - Follow up as needed Notes: 3-year-old female with lupus presents with all over body pain and rash on her chest and hands severe onset 3 days ago and increasing despite home muscle relaxer therapy. History of lupus on Plaquenil, weaned off of prednisone 2 months ago, gets her care at [facility] and often is hospitalized at [facility]. Has a port. Denies fever. Denies chest pain but has had some pressure and nausea with "a migraine " TRAVEL OUTSIDE OF THE [place] IN LAST 30 DAYS: No - Related Data Allergies/Adverse Reactions: shellfish derived Allergy (Severe, Verified 03/10/18 08:41) Anaphylaxis ketorolac tromethamine [From Toradol] Allergy (Intermediate, Verified 03/10/18 08:41) Hives morphine [Morphine] Allergy (Intermediate, Verified 03/10/18 08:41) Hives sulfamethoxazole [From Bactrim] Allergy (Unknown, Verified 03/10/18 08:41) Pruritis trimethoprim [From Bactrim] Allergy (Unknown, Verified 03/10/18 08:41) Pruritis belimumab [From Benlysta] Allergy (Verified 03/10/18 08:41) rash Past Medical History - Social History Smoking Status: Never Smoker Family History: Hypertension, Other - Lupus-mother Patient has suicidal ideation: No Patient has homicidal ideation: No - Past Medical History Cardiac Medical History: Reports: Hx DVT, Hx Hypertension - ON MEDS, Hx Pulmonary Embolism Denies: Hx Coronary Artery Disease, Hx Heart Attack, Hx Hypercholesterolemia Pulmonary Medical History: Reports: Hx Asthma - CHILDHOOD ASTHMA, Hx Pneumonia Denies: Hx Bronchitis, Hx COPD, Hx Tuberculosis Neurological Medical History: Reports: Hx Migraine, Hx Seizures - ON MEDS (MARCH 2017). Denies: Hx Cerebrovascular Accident Endocrine Medical History: Denies: Hx Diabetes Mellitus Type 1, Hx Diabetes Mellitus Type 2, Hx Hyperthyroidism, Hx Hypothyroidism Renal/ Medical History: Denies: Hx Peritoneal Dialysis GI Medical History: Reports: Hx Gastritis, Hx Gastroesophageal Reflux Disease, Hx Ulcer, Hx Endoscopy. Denies: Hx Cirrhosis, Hx Hepatitis Musculoskeletal Medical History: Reports Hx Arthritis - LUPUS Skin Medical History: Reports Hx Cellulitis Psychiatric Medical History: Reports: Hx Anxiety Denies: Hx Depression Infectious Medical History: Reports: Hx C-Diff, Hx MRSA. Denies: Hx Hepatitis Past Surgical History: Reports: Hx Abdominal Surgery - PEG tube, Hx Neurologic Surgery - C-SPINE Fx STABILIZATION, Other - PEG placement 2, Port-A-Cath, odontoid fxr repair late 2016 [facility]. Denies: Hx Hysterectomy - Immunizations Immunizations up to date: Yes Hx Diphtheria, Pertussis, Tetanus Vaccination: Yes Hx Pneumococcal Vaccination: 10/04/14 Review of Systems - Review of Systems Notes: REVIEW OF SYSTEMS GEN: Weakness generalized body pain ENT: Denies sore throat, nasal discharge, ear pain EYES: Denies blurry vision, eye pain, discharge CV: Denies chest pain, palpitations, edema RESP: Denies cough, shortness of breath, wheezing GI: Denies abdominal pain, nausea, vomiting, diarrhea MSK: Joint pain back pain SKIN: Rash LYMPH: Denies swollen glands/lymph nodes NEURO: Headache, focal weakness or numbness, dizziness PSYCH: Denies depression, suicidal or homicidal ideation PHYSICAL EXAMINATION General: No acute distress, well-nourished Head: Atraumatic, normocephalic ENT: Mouth normal, oropharynx moist, no exudates or tonsillar enlargement Eyes: Conjunctiva normal, pupils equal, lids normal Neck: No JVD, supple, no guarding CVS: Normal rate, regular rhythm, no murmurs small port nontender Resp: No resp distress, equal and normal breath sounds bilaterally GI: Nondistended, soft, no tenderness to palpation, no rebound or guarding Ext: No deformities, no edema, normal range of motion in upper and lower ext Back: No CVA or midline TTP Skin: No rash, warm Lymphatic: No lymphadeopathy noted Neuro: Awake, alert. Face symmetric. GCS 15. Physical Exam - Vital signs Vitals: Temp Pulse Resp BP Pulse Ox 98.9 F 136 H 16 119/72 97 11/03/18 06:10 11/03/18 06:10 11/03/18 06:10 11/03/18 06:10 11/03/18 06:10 Course - Re-evaluation Re-evalutation: 11/03/18 07:10 Immunocompromise 23-year-old female with lupus presents with signs and symptoms of a lupus flare without focal signs and symptoms of infection. Will treat with Dilaudid hydration check labs including ESR CRP, evaluate chest pressure with EKG and chest x-ray 11/03/18 09:49 Requested larger Dilaudid is, given 2 mg. Labs are normal workup is negative. Continued to have severe pain. Discussed at length and she would like to be admitted. Discussed with Dr. Monroy will admit to the hospital. - Vital Signs Vital signs: Temp Pulse Resp BP Pulse Ox 98.9 F 111 H 16 119/72 100 11/03/18 06:10 11/03/18 07:57 11/03/18 06:10 11/03/18 06:10 11/03/18 07:57 - Laboratory Result Diagrams: 11/03/18 07:00 11/03/18 07:00 Laboratory results interpreted by me: 11/03/18 11/03/18 07:00 07:00 RBC 3.43 L Hgb 9.9 L Hct 30.2 L ESR 98 H Chloride 110 H Carbon Dioxide 18 L Calcium 8.1 L - Diagnostic Test Radiology reviewed: Image reviewed, Reports reviewed - EKG Interpretation by Ms EKG shows normal: Sinus rhythm Rate: Tachycardia Rhythm: NSR - Decrease sinus tachycardia from last EKG with no significant change in the ST or T wave morphology Discharge - Discharge Clinical Impression: Intractable pain Lupus (systemic lupus erythematosus) Qualifiers: Systemic lupus erythematosus type: unspecified Systemic lupus erythematosus organ involvement: unspecified Qualified Code(s): M32.9 - Systemic lupus erythematosus, unspecified Condition: Good Disposition: ADMITTED OBSERVATION Admitting Provider: [facility] Unit Admitted: Telemetry Referrals: WENDY MONROY MD [Primary Care Provider] - Follow up as needed
[2018-11-03 07:14] LABS: ABSOLUTE BASOPHILS # (AUTO) 0.1 10^3/uL (0.0-0.2); ABSOLUTE LYMPHOCYTES (AUTO) 1.5 10^3/uL (0.5-4.7); ABSOLUTE MONOCYTES (AUTO) 0.6 10^3/uL (0.1-1.4); ABSOLUTE NEUT (AUTO) 6.5 10^3/uL (1.7-8.2); BASOPHILS % (AUTO) 0.7 % (0-2); EOSINOPHILS % (AUTO) 0.4 % (0-6); HEMATOCRIT 30.2 % (36.0-47.0); HEMOGLOBIN 9.9 g/dL (12.0-15.5); MEAN CORPUSCULAR HEMOGLOBIN 28.9 pg (27.0-33.4); MEAN CORPUSCULAR HGB CONC 32.8 g/dL (32.0-36.0); MEAN CORPUSCULAR VOLUME 88 fl (80-97); MONOCYTES % (AUTO) 7.4 % (3-13); PLATELET COUNT 233 10^3/uL (150-450); RED BLOOD COUNT 3.43 10^6/uL (3.72-5.28); RED CELL DISTRIBUTION WIDTH 13.8 % (11.5-14.0); SEGMENTED NEUTROPHILS % (AUTO) 74.5 % (42-78); TOTAL CELLS COUNTED % (AUTO) 100 %; WHITE BLOOD COUNT 8.7 10^3/uL (4.0-10.5)
[2018-11-03 07:32] LABS: ANION GAP 13 (5-19); BLOOD UREA NITROGEN 16 mg/dL (7-20); CALCIUM 8.1 mg/dL (8.4-10.2); CARBON DIOXIDE 18 mmol/L (22-30); CHLORIDE 110 mmol/L (98-107); GLUCOSE 102 mg/dL (75-110); POTASSIUM 4.2 mmol/L (3.6-5.0); SODIUM 140.6 mmol/L (137-145)
--- NOTE | 2018-11-03 07:40 | RADIOLOGY REPORT (SQ) ---
EXAM DESCRIPTION: XR CHEST 1 VIEW COMPLETED DATE/TME: 11/03/2018 06:40 CLINICAL HISTORY: 23 years Female, cp COMPARISON: 03/11/18 NUMBER OF VIEWS/TECHNIQUE: 1/AP FINDINGS: Clear lungs of adequate volume, and normal cardiac silhouette. Left miniport central line tip at the mid right atrium.No pneumothorax. Stable bony thorax. IMPRESSION: No significant change.
--- NOTE | 2018-11-03 07:46 | EKG REPORT ---
SEVERITY:- OTHERWISE NORMAL ECG - SINUS TACHYCARDIA : Confirmed by: Tk Baxter MD 03-Nov-2018 07:45:46
[2018-11-03 07:57] LABS: ERYTHROCYTE SEDIMENTATION RATE 98 mm/hr (0-20)
[2018-11-03] MEDS ORDERED: DIPHENHYDRAMINE HCL 50 MG CAPSULE PO ONE (08:25)
[2018-11-03] MEDS ORDERED: LEVALBUTEROL HCL NEB 0.63 MG/3 ML AMPUL NEB PRN (13:08)
[2018-11-03] MEDS ORDERED: ONDANSETRON HCL INJ/PF 4 MG/2 ML SDV IV PRN (13:08)
[2018-11-03] MEDS ORDERED: ACETAMINOPHEN 325 MG TABLET PO PRN (13:08)
[2018-11-03] MEDS ORDERED: HYDROMORPHONE HCL INJ/PF 2 MG/ML AMPULE IV PRN ×2 (13:17→17:11)
--- NOTE | 2018-11-03 13:34 | PDOC H&P ---
History of Present Illness Admission Date/PCP: 11/03/18 09:59 WENDY MONROY MD Patient complains of: Generalized joint pains malaise generalized weakness, History of Present Illness: JOSE DUMONT is a 23 year old female Who presents with generalized joint pains mainly in the hips and upper back chills no fever no sore throat malaise and this is been going on 2-3 weeks prior. Past Medical History Cardiac Medical History: Reports: DVT, Hypertension - ON MEDS, Pulmonary Embolism Denies: Coronary Artery Disease, Myocardial Infarction, Hyperlipidema Pulmonary Medical History: Reports: Asthma - CHILDHOOD ASTHMA, Pneumonia Denies: Bronchitis, Chronic Obstructive Pulmonary Disease (COPD), Tuberculosis Neurological Medical History: Reports: Migraine, Seizures - ON MEDS (MARCH 2017) Endocrine Medical History: Denies: Diabetes Mellitus Type 1, Diabetes Mellitus Type 2, Hyperthyroidism, Hypothyroidism GI Medical History: Reports: Gastroesophageal Reflux Disease Denies: Cirrhosis, Hepatitis Musculoskeltal Medical History: Reports: Arthritis - LUPUS Psychiatric Medical History: Denies: Depression Hematology: Reports: Anemia, Heparin Induced Thrombocytopenia - History of same Infectious Medical History: Reports: Clostridium Difficile, Methicillin- Resistant Staph Aureus Past Surgical History Past Surgical History: Reports: Other - PEG placement 2, Port-A-Cath, odontoid fxr repair late 2016 [place] Denies: Hysterectomy Social History Information Source: Patient Lives with: Family Smoking Status: Never Smoker Frequency of Alcohol Use: Occasional Hx Recreational Drug Use: No Drugs: None Hx Prescription Drug Abuse: No Family History Family History: CVA, Hypertension, Other - Lupus-mother Parental Family History Reviewed: Yes Children Family History Reviewed: Yes Sibling(s) Family History Reviewed.: Yes Medication/Allergy Home Medications: Clonidine HCl [Catapres 0.3 mg Tablet] 0.3 mg PO Q12 11/03/18 Erenumab-Aooe [Aimovig Autoinjector] 70 mg IM [id number] 11/03/18 Hydroxychloroquine Sulfate [Plaquenil 200 mg Tablet] 200 mg PO BIDBS 11/03/18 Ibuprofen [Motrin 600 mg Tablet] 600 mg PO BIDBS 11/03/18 Levetiracetam [Keppra] 1,500 mg PO Q12 11/03/18 Mycophenolate Mofetil 2.5 ml PO BID 11/03/18 Ondansetron [Ondansetron Odt] 8 mg SL Q6HP PRN 11/03/18 Oxycodone HCl/Acetaminophen [Percocet 10-325 mg Tablet] 1 tab PO Q8HP PRN 11/03/18 Oxycodone Myristate [Xtampza ER] 18 mg PO Q12 11/03/18 Tizanidine HCl [Zanaflex 4 mg Tablet] 4 mg PO Q8HP PRN 11/03/18 Zolpidem Tartrate [Ambien] 10 mg PO HSP PRN 11/03/18 Allergies/Adverse Reactions: shellfish derived Allergy (Severe, Verified 03/10/18 08:41) Anaphylaxis ketorolac tromethamine [From Toradol] Allergy (Intermediate, Verified 03/10/18 08:41) Hives morphine [Morphine] Allergy (Intermediate, Verified 03/10/18 08:41) Hives sulfamethoxazole [From Bactrim] Allergy (Unknown, Verified 03/10/18 08:41) Pruritis trimethoprim [From Bactrim] Allergy (Unknown, Verified 03/10/18 08:41) Pruritis belimumab [From Benlysta] Allergy (Verified 03/10/18 08:41) rash Review of Systems Constitutional: PRESENT: as per HPI Eyes: PRESENT: as per HPI Ears: PRESENT: as per HPI Nose, Mouth, and Throat: PRESENT: as per HPI Cardiovascular: PRESENT: as per HPI Respiratory: PRESENT: as per HPI Gastrointestinal: PRESENT: as per HPI Genitourinary: PRESENT: as per HPI Musculoskeletal: PRESENT: as per HPI Integumentary: PRESENT: as per HPI Neurological: PRESENT: as per HPI Psychiatric: PRESENT: as per HPI Endocrine: PRESENT: as per HPI Hematologic/Lymphatic: PRESENT: as per HPI Allergic/Immunologic: PRESENT: as per HPI Physical Exam Vital Signs: Temp Pulse Resp BP Pulse Ox 97.9 F 111 H 22 H 130/93 H 100 11/03/18 10:28 11/03/18 07:57 11/03/18 13:00 11/03/18 11:03 11/03/18 13:00 Intake & Output 11/02/18 11/03/18 11/04/18 06:59 06:59 06:59 Weight 62.3 kg General appearance: PRESENT: mild distress Head exam: PRESENT: atraumatic, normocephalic Eye exam: PRESENT: conjunctiva pink, EOMI, PERRLA. ABSENT: scleral icterus Ear exam: PRESENT: normal external ear exam Mouth exam: PRESENT: moist, tongue midline Throat exam: PRESENT: post pharyngeal erythema Neck exam: PRESENT: full ROM. ABSENT: carotid bruit, JVD, lymphadenopathy, thyromegaly Respiratory exam: PRESENT: clear to auscultation tavia Cardiovascular exam: PRESENT: tachycardia Pulses: PRESENT: normal dorsalis pedis pul, +2 pedal pulses bilateral Vascular exam: PRESENT: normal capillary refill GI/Abdominal exam: PRESENT: normal bowel sounds, soft. ABSENT: distended, guarding, mass, organolmegaly, rebound, tenderness Rectal exam: PRESENT: deferred Extremities exam: PRESENT: joint swelling, tenderness Additional comments: bilateral hips Neurological exam: PRESENT: alert, awake, oriented to person, oriented to place, oriented to time, oriented to situation, CN II-XII grossly intact. ABSENT: motor sensory deficit Psychiatric exam: PRESENT: appropriate affect, normal mood. ABSENT: homicidal ideation, suicidal ideation Skin exam: PRESENT: dry, intact, warm. ABSENT: cyanosis, rash Results Laboratory Results: 11/03/18 07:00 11/03/18 07:00 11/03/18 11/03/18 07:00 07:00 WBC 8.7 RBC 3.43 L Hgb 9.9 L Hct 30.2 L MCV 88 MCH 28.9 MCHC 32.8 RDW 13.8 Plt Count 233 Seg Neutrophils % 74.5 Lymphocytes % 17.0 Monocytes % 7.4 Eosinophils % 0.4 Basophils % 0.7 Absolute Neutrophils 6.5 Absolute Lymphocytes 1.5 Absolute Monocytes 0.6 Absolute Eosinophils 0.0 Absolute Basophils 0.1 Sodium 140.6 Potassium 4.2 Chloride 110 H Carbon Dioxide 18 L Anion Gap 13 BUN 16 Creatinine 0.52 Est GFR ( Amer) > 60 Est GFR (Non-Af Amer) > 60 Glucose 102 Calcium 8.1 L Impressions: Chest X-Ray 11/03/18 06:40 IMPRESSION: No significant change. Assessment & Plan - Diagnosis (1) Intractable pain Is this a current diagnosis for this admission?: Yes (2) Lupus (systemic lupus erythematosus) Qualifiers: Systemic lupus erythematosus type: unspecified Systemic lupus erythematosus organ involvement: unspecified Qualified Code(s): M32.9 - Systemic lupus erythematosus, unspecified (3) Accelerated hypertension Is this a current diagnosis for this admission?: Yes - Time Time Spent: 50 to 70 Minutes Medications reviewed and adjusted accordingly: Yes Anticipated discharge: Home Within: Other
[2018-11-03] MEDS: LEVETIRACETAM 500 MG TABLET PO SCH ×2 (14:15→22:57)
[2018-11-03] MEDS: METHYLPREDNISOLONE INJ 40 MG/1 ML SDV IV SCH ×2 (14:15→23:00)
[2018-11-03] MEDS: ONDANSETRON HCL INJ/PF 4 MG/2 ML SDV IV PRN (16:24)
[2018-11-03] MEDS ORDERED: (PENDING PHARMACY ID) (Oxycodone Hcl/Acetaminophen [Percocet 10-325 Mg Tablet] 1 TAB) PO PRN (17:10)
[2018-11-03 19:11] LABS: APPEARANCE,URINE SLIGHTLY-CLOUDY; BILIRUBIN,URINE NEGATIVE (NEGATIVE); COLOR,URINE YELLOW; GLUCOSE, URINE NEGATIVE (NEGATIVE); KETONES,URINE NEGATIVE (NEGATIVE); LEUKOCYTE ESTERASE,URINE LARGE (NEGATIVE); NITRITE,URINE NEGATIVE (NEGATIVE); PROTEIN,URINE NEGATIVE (NEGATIVE); URINE SPECIFIC GRAVITY 1.012
[2018-11-03] MEDS ORDERED: (PENDING PHARMACY ID) (Oxycodone Myristate [Xtampza Er] 18 MG) PO SCH (22:00)
[2018-11-03] MEDS: ZOLPIDEM TARTRATE 5 MG TABLET PO SCH (22:56)
[2018-11-03] MEDS: CLONIDINE HCL 0.2 MG TABLET PO SCH (22:56)
[2018-11-03] MEDS: OXYCODONE HCL SR 10 MG TABLET PO SCH (22:58)
[2018-11-03] MEDS: CARBAMAZEPINE 200 MG TABLET PO SCH (23:00)
[2018-11-03] MEDS: FAMOTIDINE 20 MG TABLET PO SCH (23:00)
[2018-11-03] MEDS: HYDROMORPHONE HCL INJ/PF 2 MG/ML AMPULE IV PRN (23:06)
[2018-11-04] MEDS: HYDROMORPHONE HCL INJ/PF 2 MG/ML AMPULE IV PRN ×5 (03:27→22:25)
[2018-11-04] MEDS: ONDANSETRON HCL INJ/PF 4 MG/2 ML SDV IV PRN ×4 (03:28→20:40)
[2018-11-04] MEDS: METHYLPREDNISOLONE INJ 40 MG/1 ML SDV IV SCH ×3 (05:45→21:10)
[2018-11-04] MEDS: FONDAPARINUX SODIUM INJ 2.5 MG/0.5 ML DISP.SYRIN SUBCUT SCH (08:42)
[2018-11-04] MEDS: FAMOTIDINE 20 MG TABLET PO SCH ×2 (10:49→21:10)
[2018-11-04] MEDS: CLONIDINE HCL 0.2 MG TABLET PO SCH ×2 (10:49→21:12)
[2018-11-04] MEDS: CARBAMAZEPINE 200 MG TABLET PO SCH ×2 (10:49→21:11)
[2018-11-04] MEDS: OXYCODONE HCL SR 10 MG TABLET PO SCH ×2 (10:53→21:11)
[2018-11-04] MEDS: LEVETIRACETAM 500 MG TABLET PO SCH ×2 (10:53→21:10)
--- NOTE | 2018-11-04 17:13 | PDOC PROGRESS REPORT ---
Subjective Progress Note for:: 11/04/18 Subjective:: Assumed care. This is a 23 yr old female, patient of Dr. Bhardwaj with a PMH of remote DVT, history of HIT, asthma, HTN and SLE who intially presented with generalized joint pains and rashes. She was admitted for possible lupus flare- up. She was taken off steroidsin June 2018. She is on Plaquenil and says she is also gets Rituximab infusions. She was started on IV steroids on admission. No acute event overnight. She says her joint pains have slightly improved from yesterday. She says she had generalized maculopapular rashes initially which appears to have almost resolved. There is minimal rashes on the arms. Reason For Visit: EX. OF SLE Physical Exam Vital Signs: Temp Pulse Resp BP Pulse Ox 98.1 F 68 16 120/77 99 11/04/18 16:23 11/04/18 16:23 11/04/18 16:23 11/04/18 16:23 11/04/18 16:23 Intake & Output 11/03/18 11/04/18 11/05/18 06:59 06:59 06:59 Intake Total 1300 236 Balance 1300 236 Weight 137 lb 5.568 oz 144 lb 2.917 oz General appearance: PRESENT: no acute distress, well-developed, well-nourished Head exam: PRESENT: atraumatic, normocephalic Eye exam: PRESENT: conjunctiva pink, EOMI, PERRLA. ABSENT: scleral icterus Ear exam: PRESENT: normal external ear exam Mouth exam: PRESENT: moist, tongue midline Neck exam: ABSENT: carotid bruit, JVD, lymphadenopathy, thyromegaly Respiratory exam: PRESENT: clear to auscultation tavia. ABSENT: rales, rhonchi, wheezes Cardiovascular exam: PRESENT: RRR. ABSENT: diastolic murmur, rubs, systolic murmur Pulses: PRESENT: normal dorsalis pedis pul GI/Abdominal exam: PRESENT: normal bowel sounds, soft. ABSENT: distended, guarding, mass, organolmegaly, rebound, tenderness Rectal exam: PRESENT: deferred Neurological exam: PRESENT: alert, awake, oriented to person, oriented to place, oriented to time, oriented to situation, CN II-XII grossly intact. ABSENT: motor sensory deficit Results Laboratory Results: 11/03/18 07:00 11/03/18 07:00 11/03/18 18:05 Urine Color YELLOW Urine Appearance SLIGHTLY-CLOUDY Urine pH 6.0 Ur Specific Graham 1.012 Urine Protein NEGATIVE Urine Glucose (UA) NEGATIVE Urine Ketones NEGATIVE Urine Blood SMALL H Urine Nitrite NEGATIVE Ur Leukocyte Esterase LARGE H Urine WBC (Auto) 157 Urine RBC (Auto) 15 Impressions: Chest X-Ray 11/03/18 06:40 IMPRESSION: No significant change. Assessment & Plan - Diagnosis (1) Intractable pain Is this a current diagnosis for this admission?: Yes Plan: Improved. Possible flare-up of SLE. On IV solumedrol. Reduce prn IV dilaudid if pain continues to improve. Will resume home percocet. She is also on oxycontin SR 10 q12. (2) Hypertension Is this a current diagnosis for this admission?: Yes Plan: Blood pressures at goal. - Time Time Spent with patient: 15-24 minutes
[2018-11-04] MEDS ORDERED: OXYCODONE-ACETAMINOPHEN 5-325 MG TABLET PO PRN (17:14)
[2018-11-04] MEDS: ZOLPIDEM TARTRATE 5 MG TABLET PO SCH (21:11)
[2018-11-04 21:14] LABS: A TYPE INFLUENZA AG NEGATIVE (NEGATIVE); B INFLUENZA AG NEGATIVE (NEGATIVE)
[2018-11-04] MEDS: 1/2 NORMAL SALINE 1,000 ML IV PRN (23:46)
[2018-11-05] MEDS: HYDROMORPHONE HCL INJ/PF 2 MG/ML AMPULE IV PRN ×4 (04:32→23:57)
[2018-11-05] MEDS: ONDANSETRON HCL INJ/PF 4 MG/2 ML SDV IV PRN ×4 (04:32→23:58)
[2018-11-05] MEDS: METHYLPREDNISOLONE INJ 40 MG/1 ML SDV IV SCH ×3 (06:09→21:33)
[2018-11-05] MEDS: 1/2 NORMAL SALINE 1,000 ML IV PRN ×2 (09:15→18:03)
[2018-11-05] MEDS: LEVETIRACETAM 500 MG TABLET PO SCH ×2 (09:24→21:33)
[2018-11-05] MEDS: OXYCODONE HCL SR 10 MG TABLET PO SCH ×2 (09:25→21:34)
[2018-11-05] MEDS: FAMOTIDINE 20 MG TABLET PO SCH ×2 (09:25→21:34)
[2018-11-05] MEDS: CARBAMAZEPINE 200 MG TABLET PO SCH ×2 (09:25→21:34)
[2018-11-05] MEDS: CLONIDINE HCL 0.2 MG TABLET PO SCH ×2 (09:26→21:34)
[2018-11-05] MEDS: FONDAPARINUX SODIUM INJ 2.5 MG/0.5 ML DISP.SYRIN SUBCUT SCH (09:30)
[2018-11-05] MEDS ORDERED: OXYCODONE-ACETAMINOPHEN 5-325 MG TABLET PO PRN (10:01)
[2018-11-05] MEDS ORDERED: OXYCODONE HCL IR 5 MG TABLET PO PRN (10:02)
--- NOTE | 2018-11-05 15:05 | PDOC PROGRESS REPORT ---
Subjective Progress Note for:: 11/05/18 Subjective:: Assumed care. This is a 23 yr old female, patient of Dr. Bhardwaj with a PMH of remote DVT, history of HIT, asthma, HTN and SLE who intially presented with generalized joint pains and rashes. She was admitted for possible lupus flare- up. She was taken off steroidsin June 2018. She is on Plaquenil and says she is also gets Rituximab infusions. She was started on IV steroids on admission. 11/04: She says her joint pains have slightly improved from yesterday. She says she had generalized maculopapular rashes initially which appears to have almost resolved. There is minimal rashes on the arms. 11/05: She say she continues to feel better with steroids but still having generalized joint pains. ESR is still elevated. Rashes have completely resolved. She does report of dysuria. Reason For Visit: EX. OF SLE Physical Exam Vital Signs: Temp Pulse Resp BP Pulse Ox 97.9 F 69 18 114/81 100 11/05/18 12:00 11/05/18 12:00 11/05/18 12:00 11/05/18 12:00 11/05/18 12:00 Intake & Output 11/04/18 11/05/18 11/06/18 06:59 06:59 06:59 Intake Total 1300 1060 1184 Output Total 300 Balance 8154 059 0341 Weight 144 lb 2.917 oz 142 lb 13.753 oz General appearance: PRESENT: no acute distress, well-developed, well-nourished Head exam: PRESENT: atraumatic, normocephalic Eye exam: PRESENT: conjunctiva pink, EOMI, PERRLA. ABSENT: scleral icterus Ear exam: PRESENT: normal external ear exam Mouth exam: PRESENT: moist, tongue midline Neck exam: ABSENT: carotid bruit, JVD, lymphadenopathy, thyromegaly Respiratory exam: PRESENT: clear to auscultation tavia. ABSENT: rales, rhonchi, wheezes Cardiovascular exam: PRESENT: RRR. ABSENT: diastolic murmur, rubs, systolic murmur Pulses: PRESENT: normal dorsalis pedis pul Vascular exam: PRESENT: normal capillary refill GI/Abdominal exam: PRESENT: normal bowel sounds, soft. ABSENT: distended, guarding, mass, organolmegaly, rebound, tenderness Rectal exam: PRESENT: deferred Neurological exam: PRESENT: alert, awake, oriented to person, oriented to place, oriented to time, oriented to situation, CN II-XII grossly intact. ABSENT: motor sensory deficit Results Laboratory Results: 11/03/18 07:00 11/03/18 07:00 Impressions: Chest X-Ray 11/03/18 06:40 IMPRESSION: No significant change. Assessment & Plan - Diagnosis (1) Intractable pain Is this a current diagnosis for this admission?: Yes Plan: Improved. Possible flare-up of SLE. Decrease IV solumedrol to q12. Reduce prn IV Dilaudid. Resume home percocet prn. She is also on oxycontin SR 10 q12. (2) Hypertension Is this a current diagnosis for this admission?: Yes Plan: Blood pressures at goal. (3) UTI (urinary tract infection) Is this a current diagnosis for this admission?: Yes Plan: Start ciprofloxacin. - Time Time Spent with patient: 15-24 minutes
[2018-11-05 15:39] LABS: ABSOLUTE LYMPHOCYTES (AUTO) 1.4 10^3/uL (0.5-4.7); ABSOLUTE MONOCYTES (AUTO) 0.7 10^3/uL (0.1-1.4); BASOPHILS % (AUTO) 0.1 % (0-2); HEMOGLOBIN 10.3 g/dL (12.0-15.5); MEAN CORPUSCULAR HEMOGLOBIN 29.2 pg (27.0-33.4); MEAN CORPUSCULAR HGB CONC 33.2 g/dL (32.0-36.0); MEAN CORPUSCULAR VOLUME 88 fl (80-97); MONOCYTES % (AUTO) 7.5 % (3-13); PLATELET COUNT 260 10^3/uL (150-450); RED BLOOD COUNT 3.53 10^6/uL (3.72-5.28); RED CELL DISTRIBUTION WIDTH 13.7 % (11.5-14.0); SEGMENTED NEUTROPHILS % (AUTO) 77.4 % (42-78); TOTAL CELLS COUNTED % (AUTO) 100 %; WHITE BLOOD COUNT 9.1 10^3/uL (4.0-10.5)
[2018-11-05 15:52] LABS: ALANINE AMINOTRANSFERASE < 6 U/L (9-52); ALBUMIN 4.1 g/dL (3.5-5.0); ALKALINE PHOSPHATASE 118 U/L (38-126); ANION GAP 12 (5-19); ASPARTATE AMINO TRANSFERASE 12 U/L (14-36); BILIRUBIN,DIRECT 0.3 mg/dL (0.0-0.4); BILIRUBIN,TOTAL 0.3 mg/dL (0.2-1.3); BLOOD UREA NITROGEN 15 mg/dL (7-20); CALCIUM 8.5 mg/dL (8.4-10.2); CARBON DIOXIDE 24 mmol/L (22-30); CHLORIDE 101 mmol/L (98-107); GLUCOSE 117 mg/dL (75-110); POTASSIUM 5.1 mmol/L (3.6-5.0); SODIUM 136.5 mmol/L (137-145); TOTAL PROTEIN 9.8 g/dL (6.3-8.2)
[2018-11-05 16:15] LABS: ERYTHROCYTE SEDIMENTATION RATE 103 mm/hr (0-20)
[2018-11-05] MEDS: CIPROFLOXACIN HCL 500 MG TABLET PO SCH (16:16)
[2018-11-05] MEDS ORDERED: DIPHENHYDRAMINE HCL 25 MG CAPSULE PO PRN (18:08)
[2018-11-05] MEDS: ZOLPIDEM TARTRATE 5 MG TABLET PO SCH (21:34)
[2018-11-06] MEDS: 1/2 NORMAL SALINE 1,000 ML IV PRN (04:45)
[2018-11-06] MEDS: CIPROFLOXACIN HCL 500 MG TABLET PO SCH (06:13)
[2018-11-06] MEDS: ONDANSETRON HCL INJ/PF 4 MG/2 ML SDV IV PRN ×2 (06:14→12:14)
[2018-11-06] MEDS: HYDROMORPHONE HCL INJ/PF 2 MG/ML AMPULE IV PRN ×2 (06:14→12:14)
[2018-11-06] MEDS: FONDAPARINUX SODIUM INJ 2.5 MG/0.5 ML DISP.SYRIN SUBCUT SCH (08:51)
[2018-11-06] MEDS: METHYLPREDNISOLONE INJ 40 MG/1 ML SDV IV SCH (10:11)
[2018-11-06] MEDS: LEVETIRACETAM 500 MG TABLET PO SCH (10:11)
[2018-11-06] MEDS: FAMOTIDINE 20 MG TABLET PO SCH (10:11)
[2018-11-06] MEDS: CLONIDINE HCL 0.2 MG TABLET PO SCH (10:11)
[2018-11-06] MEDS: OXYCODONE HCL SR 10 MG TABLET PO SCH (10:11)
[2018-11-06] MEDS: CARBAMAZEPINE 200 MG TABLET PO SCH (10:12)
--- NOTE | 2018-11-06 14:44 | PDOC DISCHARGE SUMMARY ---
General - Admit/Disc Date/PCP Admission Date/Primary Care Provider: 11/03/18 09:59 WENDY MONROY MD Discharge Date: 11/06/18 - Discharge Diagnosis (1) Intractable pain Is this a current diagnosis for this admission?: Yes (2) Hypertension Is this a current diagnosis for this admission?: Yes (3) Lupus (systemic lupus erythematosus) Is this a current diagnosis for this admission?: Yes (4) UTI (urinary tract infection) Is this a current diagnosis for this admission?: Yes - Additional Information Prescriptions: Cephalexin Monohydrate [Keflex 500 mg Capsule] 500 mg PO Q12 5 Days #10 capsule Prednisone [Deltasone 20 mg Tablet] 20 mg PO BID #7 tablet Home Medications: Clonidine HCl [Catapres 0.3 mg Tablet] 0.3 mg PO Q12 11/03/18 Erenumab-Aooe [Aimovig Autoinjector] 70 mg IM [id number] 11/03/18 Hydroxychloroquine Sulfate [Plaquenil 200 mg Tablet] 200 mg PO BIDBS 11/03/18 Ibuprofen [Motrin 600 mg Tablet] 600 mg PO BIDBS 11/03/18 Levetiracetam [Keppra] 1,500 mg PO Q12 11/03/18 Mycophenolate Mofetil 2.5 ml PO BID 11/03/18 Ondansetron [Ondansetron Odt] 8 mg SL Q6HP PRN 11/03/18 Oxycodone HCl/Acetaminophen [Percocet 10-325 mg Tablet] 1 tab PO Q8HP PRN 11/03/18 Oxycodone Myristate [Xtampza ER] 18 mg PO Q12 11/03/18 Tizanidine HCl [Zanaflex 4 mg Tablet] 4 mg PO Q8HP PRN 11/03/18 Zolpidem Tartrate [Ambien] 10 mg PO HSP PRN 11/03/18 Cephalexin Monohydrate [Keflex 500 mg Capsule] 500 mg PO Q12 5 Days #10 capsule 11/06/18 Prednisone [Deltasone 20 mg Tablet] 20 mg PO BID #7 tablet 11/06/18 History of Present Illness History of Present Illness: JOSE DUMONT is a 23 year old female with a PMH of SLE Generalized joint pains malaise generalized weakness, History of Present Illness: JOSE DUMONT is a 23 year old female Who presents with generalized joint pains mainly in the hips and upper back chills no fever no sore throat malaise and this is been going on 2-3 weeks prior. Hospital Course Hospital Course: This is a 23 yr old female, patient of Dr. Bhardwaj with a PMH of remote DVT, history of HIT, asthma, HTN and SLE who intially presented with generalized arian int pains and rashes. She was taken off steroids in June 2018. She was admitted for possible lupus flare-up and was started on IV solumedrol by her admitting PCP. She is on Plaquenil and says she is also gets Rituximab infusions. She did have improvement with steroids and dialudid was gradually reduced and she was resumed on her home pain regimen. She will be discharged on prednisone. She was reocmmended to ff-up with her cyber special agent at [facility] to reassess if she needs to be continued on steroids. She did complain of dysuria and was found to have a UTI. She was initially started on ciprofloxacin but says she had nausea from it. She was switched and was discharged on Keflex. Physical Exam Vital Signs: Temp Pulse Resp BP Pulse Ox 97.6 F 74 17 110/77 100 11/06/18 12:10 11/06/18 12:10 11/06/18 12:10 11/06/18 12:10 11/06/18 12:10 Intake & Output 11/05/18 11/06/18 11/07/18 06:59 06:59 06:59 Intake Total 1060 4250 Output Total 300 2200 Balance 760 2050 Weight 142 lb 13.753 oz 143 lb 11.862 oz General appearance: PRESENT: no acute distress, well-developed, well-nourished Head exam: PRESENT: atraumatic, normocephalic Eye exam: PRESENT: conjunctiva pink, EOMI, PERRLA. ABSENT: scleral icterus Ear exam: PRESENT: normal external ear exam Mouth exam: PRESENT: moist, tongue midline Neck exam: ABSENT: carotid bruit, JVD, lymphadenopathy, thyromegaly Respiratory exam: PRESENT: clear to auscultation tavia. ABSENT: rales, rhonchi, wheezes Cardiovascular exam: PRESENT: RRR. ABSENT: diastolic murmur, rubs, systolic murmur Pulses: PRESENT: normal dorsalis pedis pul GI/Abdominal exam: PRESENT: normal bowel sounds, soft. ABSENT: distended, guarding, mass, organolmegaly, rebound, tenderness Rectal exam: PRESENT: deferred Neurological exam: PRESENT: alert, awake, oriented to person, oriented to place, oriented to time, oriented to situation, CN II-XII grossly intact. ABSENT: motor sensory deficit Results Laboratory Results: 11/05/18 15:25 11/05/18 15:25 11/05/18 11/05/18 15:25 15:25 WBC 9.1 RBC 3.53 L Hgb 10.3 L Hct 31.0 L MCV 88 MCH 29.2 MCHC 33.2 RDW 13.7 Plt Count 260 Seg Neutrophils % 77.4 Lymphocytes % 15.0 Monocytes % 7.5 Eosinophils % 0.0 Basophils % 0.1 Absolute Neutrophils 7.0 Absolute Lymphocytes 1.4 Absolute Monocytes 0.7 Absolute Eosinophils 0.0 Absolute Basophils 0.0 Sodium 136.5 L Potassium 5.1 H Chloride 101 Carbon Dioxide 24 Anion Gap 12 BUN 15 Creatinine 0.68 Est GFR ( Amer) > 60 Est GFR (Non-Af Amer) > 60 Glucose 117 H Calcium 8.5 Total Bilirubin 0.3 AST 12 L ALT < 6 L Alkaline Phosphatase 118 Total Protein 9.8 H Albumin 4.1 Impressions: Chest X-Ray 11/03/18 06:40 IMPRESSION: No significant change. Qualifiers - * PATIENT BEING DISCHARGED WITH ANY OF THE FOLLOWING DIAGNOSIS: No
[2018-11-06 14:54] VITALS: BP 114/81
[2018-11-06] MEDS ORDERED: CEPHALEXIN 500 MG CAPSULE PO SCH (22:00)
== END 2018-11-06 16:08 | disposition home or self-care (01) | DRG 546 ==
LOC: ER 06:00 → EH 09:59 → 5 15:31 → OBSVTOIN 11-06 15:02
PROVIDERS: ADMIT Internal Medicine; ATTEND Internal Medicine
DX: M32.9 Systemic lupus erythematosus, unspecified (principal); N39.0 Urinary tract infection, site not specified; I10 Essential (primary) hypertension; F41.9 Anxiety disorder, unspecified; R52 Pain, unspecified; K21.9 Gastro-esophageal reflux disease without esophagitis; L08.0 Pyoderma; M25.552 Pain in left hip; M25.551 Pain in right hip; M54.89 Other dorsalgia; J45.909 Unspecified asthma, uncomplicated; G43.909 Migraine, unspecified, not intractable, without status migrainosus; Z88.2 Allergy status to sulfonamides; Z88.8 Allergy status to other drugs, medicaments and biological substances; Z88.6 Allergy status to analgesic agent; Z91.013 Allergy to seafood; Z86.718 Personal history of other venous thrombosis and embolism; Z86.711 Personal history of pulmonary embolism; Z86.14 Personal history of Methicillin resistant Staphylococcus aureus infection; Z93.1 Gastrostomy status; Z92.25 Personal history of immunosuppression therapy; Z79.899 Other long term (current) drug therapy; Z82.49 Family history of ischemic heart disease and other diseases of the circulatory system; Z83.49 Family history of other endocrine, nutritional and metabolic diseases; Z82.3 Family history of stroke
CPT/HCPCS: 36415; 36591; 71045; 80048; 80053; 81001; 81025; 85025; 85652; 85660; 86701; 87040; 87804; 93005; 93010; 96374; 96375; 96376; 99285; G0378; J1170; J1652; J2405; J2920

== ENCOUNTER 2018-11-27 04:31 | Emergency (ER) | payer MEDICARE, MEDICAID ==
[2018-11-27] MEDS ORDERED: NORMAL SALINE 1000 ML 1,000 ML IV ONE ×2 (04:51→08:01)
[2018-11-27] MEDS ORDERED: HYDROMORPHONE HCL INJ/PF 2 MG/ML AMPULE IV ONE ×2 (04:51→08:24)
[2018-11-27] MEDS ORDERED: ONDANSETRON HCL INJ/PF 4 MG/2 ML SDV IV ONE (04:51)
--- NOTE | 2018-11-27 04:57 | ER Document Report ---
ED Medical Screen (RME) - General Chief Complaint: Nausea/Vomiting Stated Complaint: LUPUS FLARE,WEAKNESS,NAUSEA/VOMITING Time Seen by Provider: 11/27/18 04:42 Primary Care Provider: WENDY MONROY MD [Primary Care Provider] - Follow up as needed Notes: 23-year-old female with a history of lupus, reports feeling bad for the past week or so, states for the past 2 days she has had persistent nausea and has not been eating anything. Reports body pain. States she has oxycodone but she has not been taking it, states her Zofran for nausea has not been helping. Recent admission for lupus flare. Denies fevers. TRAVEL OUTSIDE OF THE [place] IN LAST 30 DAYS: No - Related Data Allergies/Adverse Reactions: shellfish derived Allergy (Severe, Verified 03/10/18 08:41) Anaphylaxis ketorolac tromethamine [From Toradol] Allergy (Intermediate, Verified 03/10/18 08:41) Hives morphine [Morphine] Allergy (Intermediate, Verified 03/10/18 08:41) Hives sulfamethoxazole [From Bactrim] Allergy (Unknown, Verified 03/10/18 08:41) Pruritis trimethoprim [From Bactrim] Allergy (Unknown, Verified 03/10/18 08:41) Pruritis belimumab [From Benlysta] Allergy (Verified 03/10/18 08:41) rash Past Medical History - Past Medical History Cardiac Medical History: Reports: Hx DVT, Hx Hypertension, Hx Pulmonary Embolism Denies: Hx Coronary Artery Disease, Hx Heart Attack, Hx Hypercholesterolemia Pulmonary Medical History: Reports: Hx Asthma, Hx Bronchitis, Hx Pneumonia Denies: Hx COPD, Hx Tuberculosis Neurological Medical History: Reports: Hx Migraine, Hx Seizures. Denies: Hx Cerebrovascular Accident Endocrine Medical History: Denies: Hx Diabetes Mellitus Type 1, Hx Diabetes Mellitus Type 2, Hx Hyperthyroidism, Hx Hypothyroidism Renal/ Medical History: Denies: Hx Peritoneal Dialysis GI Medical History: Reports: Hx Gastritis, Hx Gastroesophageal Reflux Disease, Hx Ulcer, Hx Endoscopy. Denies: Hx Cirrhosis, Hx Hepatitis Musculoskeltal Medical History: Reports Hx Arthritis Skin Medical History: Reports Hx Cellulitis Psychiatric Medical History: Reports: Hx Anxiety Denies: Hx Depression Infectious Medical History: Reports: Hx C-Diff, Hx MRSA. Denies: Hx Hepatitis Past Surgical History: Reports: Hx Abdominal Surgery - PEG tube, Hx Neurologic Surgery - C-SPINE Fx STABILIZATION, Other - PEG placement 2, Port-A-Cath, odontoid fxr repair late [facility]. Denies: Hx Hysterectomy - Immunizations Immunizations up to date: Yes Hx Diphtheria, Pertussis, Tetanus Vaccination: Yes History of Influenza Vaccine for 07/2017 - 12/2017 Season: Yes Influenza Administration Date for 07/2017 - 12/2017 Season: 07/04/18 Physical Exam - Vital signs Vitals: Temp Pulse Resp BP Pulse Ox 98.6 F 140 H 22 H 121/78 98 11/27/18 04:31 11/27/18 04:31 11/27/18 04:31 11/27/18 04:31 11/27/18 04:31 - Respiratory Respiratory status: Other - Borderline tachypnea but no overt distress - Cardiovascular Rhythm: Regular, Tachycardia Heart sounds: Normal auscultation, S1 appreciated, S2 appreciated Course - Re-evaluation Re-evalutation: Patient is tachycardic, has mild tachypnea, has some epigastric tenderness on exam, however she is not toxic in appearance. No fever. Workup pending. I have greeted and performed a rapid initial assessment of this patient. A comprehensive ED assessment and evaluation of the patient, analysis of test results and completion of the medical decision making process will be conducted by additional ED providers. - Vital Signs Vital signs: Temp Pulse Resp BP Pulse Ox 98.6 F 140 H 22 H 121/78 98 11/27/18 04:31 11/27/18 04:31 11/27/18 04:31 11/27/18 04:11/27/18 04:31 Doctor's Discharge - Discharge Referrals: WENDY MONROY MD [Primary Care Provider] - Follow up as needed
[2018-11-27] MEDS ORDERED: METHYLPREDNISOLONE INJ 125 MG/2 ML SDV IV ONE (06:03)
--- NOTE | 2018-11-27 06:04 | RADIOLOGY REPORT (SQ) ---
EXAM DESCRIPTION: XR CHEST 1 VIEW COMPLETED DATE/TME: 11/27/2018 04:51 CLINICAL HISTORY: 23 years, Female, shortness of breath Comparison: None FINDINGS: No focal lung consolidation. Lung volumes are decreased. No pleural effusion. No pneumothorax. Cardiac and mediastinal silhouette is unremarkable. Mediport from a left subclavian approach. No acute osseous abnormality. Soft tissues are unremarkable. IMPRESSION: No acute findings. No focal lung consolidation.
--- NOTE | 2018-11-27 06:18 | ER Document Report ---
ED General - General Chief Complaint: Nausea/Vomiting Stated Complaint: LUPUS FLARE,WEAKNESS,NAUSEA/VOMITING Time Seen by Provider: 11/27/18 04:42 Primary Care Provider: WENDY MONROY MD [Primary Care Provider] - Follow up as needed TRAVEL OUTSIDE OF THE [place] IN LAST 30 DAYS: No - HPI Notes: Patient presents to the emergency department for evaluation. She states she is having a "lupus flare." She sees a seed yeast operator at [facility]. She states she has pain all over. Ulcerations in her tongue. She has had severe nausea but no vomiting. She states she is not able to eat anything. She has been able to keep down her medicines, is eating ice chips. She states she is still urinating. She was hospitalized at the end of October for a lupus flare here. She was given steroids while in the hospital, she states she did have some improvement at that time. - Related Data Allergies/Adverse Reactions: shellfish derived Allergy (Severe, Verified 03/10/18 08:41) Anaphylaxis ketorolac tromethamine [From Toradol] Allergy (Intermediate, Verified 03/10/18 08:41) Hives morphine [Morphine] Allergy (Intermediate, Verified 03/10/18 08:41) Hives sulfamethoxazole [From Bactrim] Allergy (Unknown, Verified 03/10/18 08:41) Pruritis trimethoprim [From Bactrim] Allergy (Unknown, Verified 03/10/18 08:41) Pruritis belimumab [From Benlysta] Allergy (Verified 03/10/18 08:41) rash Past Medical History - General Information source: Patient - Social History Smoking Status: Never Smoker Family History: CVA, Hypertension, Other - Lupus-mother - Past Medical History Cardiac Medical History: Reports: Hx DVT, Hx Hypertension, Hx Pulmonary Embolism Denies: Hx Coronary Artery Disease, Hx Heart Attack, Hx Hypercholesterolemia Pulmonary Medical History: Reports: Hx Asthma, Hx Bronchitis, Hx Pneumonia Denies: Hx COPD, Hx Tuberculosis Neurological Medical History: Reports: Hx Migraine, Hx Seizures. Denies: Hx Cerebrovascular Accident Endocrine Medical History: Denies: Hx Diabetes Mellitus Type 1, Hx Diabetes Mellitus Type 2, Hx Hyperthyroidism, Hx Hypothyroidism Renal/ Medical History: Denies: Hx Peritoneal Dialysis GI Medical History: Reports: Hx Gastritis, Hx Gastroesophageal Reflux Disease, Hx Ulcer, Hx Endoscopy. Denies: Hx Cirrhosis, Hx Hepatitis Musculoskeletal Medical History: Reports Hx Arthritis Skin Medical History: Reports Hx Cellulitis Psychiatric Medical History: Reports: Hx Anxiety Denies: Hx Depression Infectious Medical History: Reports: Hx C-Diff, Hx MRSA. Denies: Hx Hepatitis Past Surgical History: Reports: Hx Abdominal Surgery - PEG tube, Hx Neurologic Surgery - C-SPINE Fx STABILIZATION, Other - PEG placement 2, Port-A-Cath, odontoid fxr repair late 2016 [employer]. Denies: Hx Hysterectomy - Immunizations Immunizations up to date: Yes Hx Diphtheria, Pertussis, Tetanus Vaccination: Yes Hx Pneumococcal Vaccination: 02/01/17 Review of Systems - Review of Systems Constitutional: Malaise, Weakness EENT: No symptoms reported Cardiovascular: Heart racing Gastrointestinal: Nausea Genitourinary: No symptoms reported Musculoskeletal: Other - Generalized pain, particularly in joints Skin: No symptoms reported Neurological/Psychological: No symptoms reported Physical Exam - Vital signs Vitals: Temp Pulse Resp BP Pulse Ox 98.6 F 140 H 22 H 121/78 98 11/27/18 04:31 11/27/18 04:31 11/27/18 04:31 11/27/18 04:31 11/27/18 04:31 Interpretation: Tachycardic - Notes Notes: Vital signs reviewed, please refer to chart. Patient is normocephalic, atraumatic. Pupils equal round, reactive to light. Ulcerations noted on the anterior aspect of the tongue neck is supple without meningismus. Heart exam reveals tachycardia, normal S1-S2.. Lungs are clear to auscultation bilateral ly. Abdomen is soft, nontender, normoactive bowel sounds throughout. Extremities without cyanosis, clubbing, edema. Peripheral pulses are equal. Skin is warm and dry. Patient is awake, alert, neurological exam is nonfocal. Course - Re-evaluation Re-evalutation: 11/27/18 09:41 Patient was evaluated here in the emergency department for a flare of her lupus. She did request additional Dilaudid, Benadryl for the itching associated with that. She was medicated here further with steroids, given 2 L of normal saline. Her heart rate improved to between 109 and 115. Laboratory vesication showed an elevated sed rate and a mildly decreased bicarb at 19. Patient reported significant improvement and looked well improved as well. I did speak with her primary care physician, Dr. Monroy, at 940. He was comfortable with an outpatient steroid taper and discharge. She Chuy has pain medication and nausea medication at home, as well as Magic mouthwash for her oral ulcerations. She is to return to the ED with worsening or new concerning terms of any sort. - Vital Signs Vital signs: Temp Pulse Resp BP Pulse Ox 100.0 F 140 H 19 121/88 H 99 11/27/18 05:27 11/27/18 04:31 11/27/18 09:01 11/27/18 09:01 11/27/18 09:01 - Laboratory Result Diagrams: 11/27/18 07:00 11/27/18 07:00 Laboratory results interpreted by me: 11/27/18 11/27/18 07:00 07:00 RBC 3.52 L Hgb 10.4 L Hct 31.1 L RDW 14.9 H Seg Neutrophils % 40.4 L Lymphocytes % 46.9 H ESR 99 H Chloride 108 H Carbon Dioxide 19 L Calcium 8.0 L Alkaline Phosphatase 130 H Total Protein 9.5 H - Diagnostic Test Radiology reviewed: Reports reviewed - No acute cardiopulmonary disease - EKG Interpretation by Me Additional EKG results interpreted by me: 11/27/18 06:17 Sinus tachycardia with a rate of 133 bpm. Normal axis and intervals, no acute ST changes concerning for ischemia or infarction. Discharge - Discharge Clinical Impression: Lupus, Pain Condition: Stable Disposition: HOME, SELF-CARE Instructions: Chronic Pain Control ([facility]) Additional Instructions: Stay hydrated with small, frequent sips of fluids. Take all the prednisone as directed, starting tomorrow, until gone. Follow-up with Dr. Monroy this week. If you develop fevers, inability to keep down fluids, or any other new or concerning symptoms, return immediately to the emergency department for reevaluation. Referrals: WENDY MONROY MD [Primary Care Provider] - Follow up as needed
[2018-11-27] MEDS ORDERED: ONDANSETRON HCL INJ/PF 4 MG/2 ML SDV ONE (07:13)
[2018-11-27] MEDS ORDERED: DIPHENHYDRAMINE HCL 50 MG/ML VIAL ONE (07:17)
[2018-11-27] MEDS ORDERED: DIPHENHYDRAMINE HCL 50 MG/ML VIAL IV ONE (07:18)
[2018-11-27 07:27] LABS: ABSOLUTE BASOPHILS # (AUTO) 0.1 10^3/uL (0.0-0.2); ABSOLUTE LYMPHOCYTES (AUTO) 4.5 10^3/uL (0.5-4.7); ABSOLUTE MONOCYTES (AUTO) 1.1 10^3/uL (0.1-1.4); ABSOLUTE NEUT (AUTO) 3.9 10^3/uL (1.7-8.2); HEMATOCRIT 31.1 % (36.0-47.0); HEMOGLOBIN 10.4 g/dL (12.0-15.5); LYMPHOCYTES % (AUTO) 46.9 % (13-45); MEAN CORPUSCULAR HEMOGLOBIN 29.5 pg (27.0-33.4); MEAN CORPUSCULAR HGB CONC 33.4 g/dL (32.0-36.0); MEAN CORPUSCULAR VOLUME 88 fl (80-97); MONOCYTES % (AUTO) 11.7 % (3-13); PLATELET COUNT 241 10^3/uL (150-450); RED BLOOD COUNT 3.52 10^6/uL (3.72-5.28); RED CELL DISTRIBUTION WIDTH 14.9 % (11.5-14.0); SEGMENTED NEUTROPHILS % (AUTO) 40.4 % (42-78); TOTAL CELLS COUNTED % (AUTO) 100 %; WHITE BLOOD COUNT 9.7 10^3/uL (4.0-10.5)
[2018-11-27 07:40] LABS: ALANINE AMINOTRANSFERASE 14 U/L (9-52); ALBUMIN 4.2 g/dL (3.5-5.0); ALKALINE PHOSPHATASE 130 U/L (38-126); ANION GAP 12 (5-19); ASPARTATE AMINO TRANSFERASE 29 U/L (14-36); BILIRUBIN,DIRECT 0.2 mg/dL (0.0-0.4); BILIRUBIN,TOTAL 0.5 mg/dL (0.2-1.3); BLOOD UREA NITROGEN 12 mg/dL (7-20); CARBON DIOXIDE 19 mmol/L (22-30); CHLORIDE 108 mmol/L (98-107); GLUCOSE 93 mg/dL (75-110); LIPASE 28.9 U/L (23-300); SODIUM 138.7 mmol/L (137-145); TOTAL PROTEIN 9.5 g/dL (6.3-8.2)
[2018-11-27 08:13] LABS: ERYTHROCYTE SEDIMENTATION RATE 99 mm/hr (0-20)
--- NOTE | 2018-11-27 08:57 | EKG REPORT ---
SEVERITY:- OTHERWISE NORMAL ECG - SINUS TACHYCARDIA : Confirmed by: Tk Baxter MD 27-Nov-2018 08:56:48
[2018-11-27] MEDS: ONDANSETRON HCL INJ/PF 4 MG/2 ML SDV IV ONE ×2 (10:01→10:09)
[2018-11-27 10:02] VITALS: BP 132/90
== END 2018-11-27 10:15 | disposition home or self-care (01) ==
LOC: ER 04:31
DX: L93.0 Discoid lupus erythematosus (principal); K14.0 Glossitis; L29.9 Pruritus, unspecified; T40.2X5A Adverse effect of other opioids, initial encounter; Y92.238 Other place in hospital as the place of occurrence of the external cause; R11.0 Nausea; R53.1 Weakness; R53.81 Other malaise; R00.0 Tachycardia, unspecified; M25.50 Pain in unspecified joint; I10 Essential (primary) hypertension; J45.909 Unspecified asthma, uncomplicated; Z88.1 Allergy status to other antibiotic agents; Z88.5 Allergy status to narcotic agent; Z88.8 Allergy status to other drugs, medicaments and biological substances; Z87.892 Personal history of anaphylaxis; Z91.013 Allergy to seafood
CPT/HCPCS: 93005; 36591; 96376; 99284; 96361; 96374; 96375; 36415; 83690; 84703; 85025; 85652; 80053; 71045; 93010; J1200; J2930; J1170; J2405; J7030; J1642

== ENCOUNTER 2019-02-04 17:03 | Emergency (ER) | payer MEDICARE, MEDICAID ==
[2019-02-04 17:17] VITALS: BP 155/119
[2019-02-04] MEDS ORDERED: NORMAL SALINE 1000 ML 1,000 ML IV ONE (17:54)
[2019-02-04] MEDS ORDERED: ONDANSETRON HCL INJ/PF 4 MG/2 ML SDV IV ONE ×2 (17:54→22:16)
--- NOTE | 2019-02-04 17:56 | ER Document Report ---
ED Medical Screen (RME) - General Chief Complaint: Pain All Over Stated Complaint: LUPUS FLARE Time Seen by Provider: 02/04/19 17:49 Primary Care Provider: WENDY MONROY MD [Primary Care Provider] - Follow up as needed Mode of Arrival: Ambulatory Information source: Patient TRAVEL OUTSIDE OF THE [place] IN LAST 30 DAYS: No - HPI Patient complains to provider of: LUPUS FLARE Notes: 02/04/19 17:55 Patient here with complaints of possible lupus flare. The patient states she has pain all over. She been having some chest pain. She complains of nausea, vomiting, diarrhea. She does have a history of PE and is on blood thinning medications. Exam No distress, nontoxic. Lungs clear and equal throughout. Tachycardia. Plan Access port, CBC, CMP, urine, , troponin, chest x-ray, EKG An initial examination was made on the patient as part of the triage process, and it was determined a more comprehensive evaluation was necessary. Initial labs were ordered and patient was transferred to another provider in the ED who assumed care and finished evaluation and plan. - Related Data Allergies/Adverse Reactions: shellfish derived Allergy (Severe, Verified 02/04/19 17:04) Anaphylaxis ketorolac tromethamine [From Toradol] Allergy (Intermediate, Verified 02/04/19 17:04) Hives morphine [Morphine] Allergy (Intermediate, Verified 02/04/19 17:04) Hives sulfamethoxazole [From Bactrim] Allergy (Unknown, Verified 02/04/19 17:04) Pruritis trimethoprim [From Bactrim] Allergy (Unknown, Verified 02/04/19 17:04) Pruritis belimumab [From Benlysta] Allergy (Verified 02/04/19 17:04) rash Past Medical History - Social History Frequency of alcohol use: Social Drug Abuse: None - Past Medical History Cardiac Medical History: Reports: Hx DVT, Hx Hypertension, Hx Pulmonary Embolism Denies: Hx Coronary Artery Disease, Hx Heart Attack, Hx Hypercholesterolemia Pulmonary Medical History: Reports: Hx Asthma, Hx Bronchitis, Hx Pneumonia Denies: Hx COPD, Hx Tuberculosis Neurological Medical History: Reports: Hx Migraine, Hx Seizures - on Keppra last seizure February 2018. Denies: Hx Cerebrovascular Accident Endocrine Medical History: Denies: Hx Diabetes Mellitus Type 1, Hx Diabetes Mellitus Type 2, Hx Hyperthyroidism, Hx Hypothyroidism Renal/ Medical History: Denies: Hx Peritoneal Dialysis GI Medical History: Reports: Hx Gastritis, Hx Gastroesophageal Reflux Disease, Hx Ulcer, Hx Endoscopy. Denies: Hx Cirrhosis, Hx Hepatitis Musculoskeltal Medical History: Reports Hx Arthritis Skin Medical History: Reports Hx Cellulitis Psychiatric Medical History: Reports: Hx Anxiety Denies: Hx Depression Infectious Medical History: Reports: Hx C-Diff, Hx MRSA. Denies: Hx Hepatitis Past Surgical History: Reports: Hx Abdominal Surgery - PEG tube, Hx Neurologic Surgery - C-SPINE Fx STABILIZATION, Other - PEG placement 2, Port-A-Cath, odontoid fxr repair late 2016 [employer]. Denies: Hx Hysterectomy - Immunizations Immunizations up to date: Yes Hx Diphtheria, Pertussis, Tetanus Vaccination: Yes History of Influenza Vaccine for 07/2017 - 12/2017 Season: Yes Influenza Administration Date for 07/2017 - 12/2017 Season: 07/04/18 Physical Exam - Vital signs Vitals: Temp Pulse Resp BP Pulse Ox 98.5 F 121 H 16 155/119 H 100 02/04/19 17:16 02/04/19 17:16 02/04/19 17:16 02/04/19 17:16 02/04/19 17:16 Course - Vital Signs Vital signs: Temp Pulse Resp BP Pulse Ox 98.5 F 121 H 16 155/119 H 100 02/04/19 17:16 02/04/19 17:16 02/04/19 17:16 02/04/19 17:16 02/04/19 17:16 Doctor's Discharge - Discharge Referrals: WENDY MONROY MD [Primary Care Provider] - Follow up as needed
--- NOTE | 2019-02-04 18:38 | RADIOLOGY REPORT (SQ) ---
EXAM DESCRIPTION: CHEST SINGLE VIEW COMPLETED DATE/TIME: 02/04/2019 6:24 pm REASON FOR STUDY: CP COMPARISON: 11/27/2018 TECHNIQUE: Single frontal radiographic view of the chest acquired. NUMBER OF VIEWS: One view. LIMITATIONS: None. FINDINGS: LUNGS AND PLEURA: No pneumothorax. Small area of airspace opacity in the left medial lung base. No pleural effusion. MEDIASTINUM AND HILAR STRUCTURES: Stable. HEART AND VASCULAR STRUCTURES: Stable. BONES: No acute findings. HARDWARE: Left chest port. OTHER: No other significant finding. IMPRESSION: Small area of airspace opacity in the left medial lung base. No pleural effusion. TECHNICAL DOCUMENTATION: JOB ID: [id number] [id number] 2010 [employer]- All Rights Reserved Reading location - IP/workstation name: [email or web address]
[2019-02-04 18:42] LABS: APPEARANCE,URINE SLIGHTLY-CLOUDY; BILIRUBIN,URINE NEGATIVE (NEGATIVE); COLOR,URINE YELLOW; GLUCOSE, URINE NEGATIVE (NEGATIVE); KETONES,URINE NEGATIVE (NEGATIVE); LEUKOCYTE ESTERASE,URINE MODERATE (NEGATIVE); NITRITE,URINE NEGATIVE (NEGATIVE); PROTEIN,URINE 100 mg/dL (NEGATIVE); URINE SPECIFIC GRAVITY 1.026; UROBILINOGEN,URINE NEGATIVE mg/dL (<2.0)
[2019-02-04] MEDS ORDERED: HYDROMORPHONE HCL INJ/PF 2 MG/ML AMPULE IV ONE ×3 (19:21→23:26)
--- NOTE | 2019-02-04 19:23 | ER Document Report ---
ED General - General Chief Complaint: Pain All Over Stated Complaint: LUPUS FLARE Time Seen by Provider: 02/04/19 17:49 Primary Care Provider: WENDY MONROY MD [Primary Care Provider] - Follow up as needed Mode of Arrival: Ambulatory Information source: Patient Notes: This is a 23-year-old female with a history of lupus, PEs (Arixtra), seizures (Keppra) who presents to the emergency room with generalized pain, nausea, vomiting, decreased p.o. intake. Patient states this is very similar to her lupus flares. She denies fever. She denies cough. She denies dysuria. TRAVEL OUTSIDE OF THE [place] IN LAST 30 DAYS: No - HPI Onset: Last week Onset/Duration: Gradual Quality of pain: Dull Severity: Moderate Pain Level: 3 Associated symptoms: denies: Chest pain, Fever, Shortness of breath Exacerbated by: Movement Relieved by: Remaining still Similar symptoms previously: Yes Recently seen / treated by doctor: Yes - Related Data Allergies/Adverse Reactions: shellfish derived Allergy (Severe, Verified 02/04/19 17:04) Anaphylaxis ketorolac tromethamine [From Toradol] Allergy (Intermediate, Verified 02/04/19 17:04) Hives morphine [Morphine] Allergy (Intermediate, Verified 02/04/19 17:04) Hives sulfamethoxazole [From Bactrim] Allergy (Unknown, Verified 02/04/19 17:04) Pruritis trimethoprim [From Bactrim] Allergy (Unknown, Verified 02/04/19 17:04) Pruritis belimumab [From Benlysta] Allergy (Verified 02/04/19 17:04) rash Past Medical History - General Information source: Patient - Social History Smoking Status: Never Smoker Cigarette use (# per day): No Chew tobacco use (# tins/day): No Frequency of alcohol use: Social Drug Abuse: None Lives with: Family Family History: CVA, Hypertension, Other - Lupus-mother Patient has suicidal ideation: No Patient has homicidal ideation: No - Past Medical History Cardiac Medical History: Reports: Hx DVT, Hx Hypertension, Hx Pulmonary Embolism Denies: Hx Coronary Artery Disease, Hx Heart Attack, Hx Hypercholesterolemia Pulmonary Medical History: Reports: Hx Asthma, Hx Bronchitis, Hx Pneumonia Denies: Hx COPD, Hx Tuberculosis Neurological Medical History: Reports: Hx Migraine, Hx Seizures - on Keppra last seizure February 2018. Denies: Hx Cerebrovascular Accident Endocrine Medical History: Denies: Hx Diabetes Mellitus Type 1, Hx Diabetes Mellitus Type 2, Hx Hyperthyroidism, Hx Hypothyroidism Renal/ Medical History: Denies: Hx Peritoneal Dialysis GI Medical History: Reports: Hx Gastritis, Hx Gastroesophageal Reflux Disease, Hx Ulcer, Hx Endoscopy. Denies: Hx Cirrhosis, Hx Hepatitis Musculoskeletal Medical History: Reports Hx Arthritis Skin Medical History: Reports Hx Cellulitis Psychiatric Medical History: Reports: Hx Anxiety Denies: Hx Depression Infectious Medical History: Reports: Hx C-Diff, Hx MRSA. Denies: Hx Hepatitis Past Surgical History: Reports: Hx Abdominal Surgery - PEG tube, Hx Neurologic Surgery - C-SPINE Fx STABILIZATION, Other - PEG placement 2, Port-A-Cath, odontoid fxr repair late 2016 [employer]. Denies: Hx Hysterectomy - Immunizations Immunizations up to date: Yes Hx Diphtheria, Pertussis, Tetanus Vaccination: Yes Hx Pneumococcal Vaccination: 02/01/17 Review of Systems - Review of Systems Constitutional: denies: Chills, Fever EENT: No symptoms reported Cardiovascular: No symptoms reported Respiratory: No symptoms reported, Hurts to breathe Genitourinary: No symptoms reported Female Genitourinary: No symptoms reported Musculoskeletal: See HPI Skin: No symptoms reported Hematologic/Lymphatic: No symptoms reported Neurological/Psychological: No symptoms reported Physical Exam - Vital signs Vitals: Temp Pulse Resp BP Pulse Ox 98.5 F 121 H 16 155/119 H 100 02/04/19 17:16 02/04/19 17:16 02/04/19 17:16 02/04/19 17:16 02/04/19 17:16 Notes: Physical exam: GENERAL: Patient is alert and oriented x3, no acute distress. Blood pressure is 155/119, pulse is 121, respiratory rate is 16, O2 sat 100% on room air, afebrile. HEAD: Atraumatic, normocephalic. EYES: Pupils equal round and reactive to light, extraocular movements intact, sclera anicteric, conjunctiva are normal. ENT: TMs normal, nares patent, oropharynx clear without exudates. Moist mucous membranes. NECK: Normal range of motion, supple without obvious mass or JVD. LUNGS: Breath sounds clear to auscultation bilaterally and equal. No wheezes rales or rhonchi. HEART: Regular rate and rhythm without murmurs, rubs or gallops. ABDOMEN: Soft, normoactive bowel sounds. No tenderness to palpation. No guarding, no rebound. No masses appreciated. EXTREMITIES: Normal range of motion, no pitting or edema. No clubbing or cyanosis. NEUROLOGICAL: Cranial nerves II through XII grossly intact. Normal speech, moving all extremities. PSYCH: Normal mood, normal affect. SKIN: Warm, Dry, normal turgor, no rashes or lesions noted. Course - Vital Signs Vital signs: Temp Pulse Resp BP Pulse Ox 98.5 F 121 H 16 155/119 H 100 02/04/19 17:16 02/04/19 17:16 02/04/19 17:16 02/04/19 17:16 02/04/19 17:16 - Laboratory Result Diagrams: 02/04/19 19:11 02/04/19 19:11 Laboratory results interpreted by me: 02/04/19 02/04/19 02/04/19 17:58 19:11 19:11 RBC 3.29 L Hgb 9.4 L Hct 29.3 L RDW 15.0 H Plt Count 115 L APTT 39.2 H Chloride Carbon Dioxide Creatinine Calcium Alkaline Phosphatase Total Protein Urine Protein 100 H Ur Leukocyte Esterase MODERATE H 02/04/19 19:11 RBC Hgb Hct RDW Plt Count APTT Chloride 112 H Carbon Dioxide 21 L Creatinine 0.36 L Calcium 8.3 L Alkaline Phosphatase 142 H Total Protein 9.7 H Urine Protein Ur Leukocyte Esterase - EKG Interpretation by Me Rate: Tachycardia - EKG shows sinus tachycardia with a ventricular rate of 111, no acute ST-T wave changes Discharge - Discharge Clinical Impression: Lupus flare Condition: Stable Disposition: HOME, SELF-CARE Additional Instructions: As we discussed, your electrolytes, kidney functions and other labs look good today. I want you to rest, drink plenty of fluids, continue with your medicines. Follow-up with Dr. Monroy this week. Return to the emergency room for any worsening pain or any concerns or getting worse. Referrals: WENDY MONROY MD [Primary Care Provider] - Follow up as needed
[2019-02-04 19:32] LABS: ABSOLUTE BASOPHILS # (AUTO) 0.1 10^3/uL (0.0-0.2); ABSOLUTE EOSINOPHILS # (AUTO) 0.1 10^3/uL (0.0-0.6); ABSOLUTE LYMPHOCYTES (AUTO) 2.1 10^3/uL (0.5-4.7); ABSOLUTE MONOCYTES (AUTO) 0.9 10^3/uL (0.1-1.4); ABSOLUTE NEUT (AUTO) 3.5 10^3/uL (1.7-8.2); BASOPHILS % (AUTO) 1.1 % (0-2); EOSINOPHILS % (AUTO) 1.2 % (0-6); HEMATOCRIT 29.3 % (36.0-47.0); HEMOGLOBIN 9.4 g/dL (12.0-15.5); MEAN CORPUSCULAR HEMOGLOBIN 28.6 pg (27.0-33.4); MEAN CORPUSCULAR HGB CONC 32.2 g/dL (32.0-36.0); MEAN CORPUSCULAR VOLUME 89 fl (80-97); MONOCYTES % (AUTO) 12.8 % (3-13); PLATELET COUNT 115 10^3/uL (150-450); RED BLOOD COUNT 3.29 10^6/uL (3.72-5.28); SEGMENTED NEUTROPHILS % (AUTO) 52.9 % (42-78); TOTAL CELLS COUNTED % (AUTO) 100 %; WHITE BLOOD COUNT 6.7 10^3/uL (4.0-10.5)
[2019-02-04 19:48] LABS: INTERNATIONAL RATION (INR) 1.05; PROTHROMBIN TIME 14.3 SEC (11.4-15.4)
[2019-02-04 19:49] LABS: PARTIAL THROMBOPLASTIN TIME 39.2 SEC (23.5-35.8)
[2019-02-04 19:58] LABS: ALANINE AMINOTRANSFERASE 10 U/L (9-52); ALBUMIN 3.7 g/dL (3.5-5.0); ALKALINE PHOSPHATASE 142 U/L (38-126); ANION GAP 9 (5-19); ASPARTATE AMINO TRANSFERASE 15 U/L (14-36); BILIRUBIN,DIRECT 0.3 mg/dL (0.0-0.4); BILIRUBIN,TOTAL 0.4 mg/dL (0.2-1.3); BLOOD UREA NITROGEN 15 mg/dL (7-20); CALCIUM 8.3 mg/dL (8.4-10.2); CARBON DIOXIDE 21 mmol/L (22-30); CHLORIDE 112 mmol/L (98-107); GLUCOSE 89 mg/dL (75-110); POTASSIUM 3.8 mmol/L (3.6-5.0); SODIUM 141.8 mmol/L (137-145); TOTAL PROTEIN 9.7 g/dL (6.3-8.2)
[2019-02-04] MEDS ORDERED: DIPHENHYDRAMINE HCL 50 MG/ML VIAL IV ONE (22:16)
--- NOTE | 2019-02-04 22:57 | EKG REPORT ---
SEVERITY:- OTHERWISE NORMAL ECG - SINUS TACHYCARDIA : Confirmed by: Homer Edmonds 04-Feb-2019 22:57:25
[2019-02-04] MEDS ORDERED: PROMETHAZINE HCL 25 MG TABLET PO ONE (23:27)
== END 2019-02-05 00:46 | disposition home or self-care (01) ==
LOC: ER 17:03
DX: R52 Pain, unspecified (principal); R11.2 Nausea with vomiting, unspecified; R00.0 Tachycardia, unspecified; I10 Essential (primary) hypertension; R56.9 Unspecified convulsions; Z79.899 Other long term (current) drug therapy; Z79.02 Long term (current) use of antithrombotics/antiplatelets; Z86.711 Personal history of pulmonary embolism; Z86.718 Personal history of other venous thrombosis and embolism; J45.909 Unspecified asthma, uncomplicated; Z87.892 Personal history of anaphylaxis; Z91.013 Allergy to seafood; Z88.8 Allergy status to other drugs, medicaments and biological substances; Z88.5 Allergy status to narcotic agent; Z88.1 Allergy status to other antibiotic agents
CPT/HCPCS: 93005; 96376; 99284; 96361; 96374; 96375; 36415; 84703; 85025; 85610; 85730; 81025; 80053; 81001; 84484; 71045; 93010; J1200; J1170; A9270; J2405; J7030; J1642

== ENCOUNTER → 2019-02-21 | Outpatient (CLI) | payer MEDICARE, MEDICAID ==
[2019-02-21 11:06] LABS: ABSOLUTE EOSINOPHILS # (AUTO) 0.2 10^3/uL (0.0-0.6); ABSOLUTE LYMPHOCYTES (AUTO) 2.2 10^3/uL (0.5-4.7); ABSOLUTE MONOCYTES (AUTO) 0.7 10^3/uL (0.1-1.4); ABSOLUTE NEUT (AUTO) 2.8 10^3/uL (1.7-8.2); BASOPHILS % (AUTO) 0.5 % (0-2); HEMATOCRIT 31.6 % (36.0-47.0); HEMOGLOBIN 10.2 g/dL (12.0-15.5); LYMPHOCYTES % (AUTO) 37.3 % (13-45); MEAN CORPUSCULAR HEMOGLOBIN 28.5 pg (27.0-33.4); MEAN CORPUSCULAR HGB CONC 32.4 g/dL (32.0-36.0); MEAN CORPUSCULAR VOLUME 88 fl (80-97); MONOCYTES % (AUTO) 12.1 % (3-13); PLATELET COUNT 166 10^3/uL (150-450); RED BLOOD COUNT 3.58 10^6/uL (3.72-5.28); RED CELL DISTRIBUTION WIDTH 14.3 % (11.5-14.0); SEGMENTED NEUTROPHILS % (AUTO) 47.1 % (42-78); TOTAL CELLS COUNTED % (AUTO) 100 %; WHITE BLOOD COUNT 5.9 10^3/uL (4.0-10.5)
[2019-02-21 11:39] LABS: ALANINE AMINOTRANSFERASE < 6 U/L (9-52); ALBUMIN 3.8 g/dL (3.5-5.0); ALKALINE PHOSPHATASE 134 U/L (38-126); ANION GAP 12 (5-19); ASPARTATE AMINO TRANSFERASE 17 U/L (14-36); BILIRUBIN,DIRECT 0.3 mg/dL (0.0-0.4); BILIRUBIN,TOTAL 0.4 mg/dL (0.2-1.3); BLOOD UREA NITROGEN 14 mg/dL (7-20); CALCIUM 8.5 mg/dL (8.4-10.2); CARBON DIOXIDE 22 mmol/L (22-30); CHLORIDE 105 mmol/L (98-107); GLUCOSE 102 mg/dL (75-110); POTASSIUM 4.8 mmol/L (3.6-5.0); SODIUM 139.1 mmol/L (137-145); TOTAL PROTEIN 10.5 g/dL (6.3-8.2)
== END ==
LOC: OD 09:59
PROVIDERS: ATTEND Internal Medicine
DX: D64.9 Anemia, unspecified (principal); R10.9 Unspecified abdominal pain
CPT/HCPCS: 36415; 80053; 83690; 85025

== ENCOUNTER → 2019-03-01 | Outpatient (CLI) | payer MEDICARE, MEDICAID | LOC: OD 11:17 | PROVIDERS: ATTEND Internal Medicine | DX: E53.8 Deficiency of other specified B group vitamins (principal); B00.9 Herpesviral infection, unspecified | CPT/HCPCS: 36415; 82607; 82746 ==

== ENCOUNTER 2020-04-22 11:39 | Emergency (ER) | payer MEDICARE, MEDICAID ==
[2020-04-22] MEDS ORDERED: METHYLPREDNISOLONE INJ 125 MG/2 ML SDV IV ONE (13:42)
[2020-04-22] MEDS ORDERED: ONDANSETRON HCL INJ/PF 4 MG/2 ML SDV IV ONE (13:43)
[2020-04-22] MEDS ORDERED: NORMAL SALINE 1000 ML 1,000 ML IV ONE (13:43)
--- NOTE | 2020-04-22 13:47 | ER Document Report ---
ED Medical Screen (RME) - General Chief Complaint: Chest Pain Stated Complaint: CHEST PAIN Time Seen by Provider: 04/22/20 13:32 Mode of Arrival: Wheelchair Information source: Patient Notes: Patient is a 18-year-old female comes emergency room with a complaint of having a lupus flare. 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 Because she is unable to hold fluids down she is also unable to hold her medications down that keeps her out of having a flareup. Patient also does state that this feels different than her usual flares in that she is having chest discomfort and shortness of breath. She has a history of a pulmonary embolism back in 2010. She states this feels similar to that. She is currently on no anticoagulation since this occurred in 2010. Physical examination: Patient is a well-nourished well-developed 24-year-old female who is in no apparent distress on examination today but appears somewhat uncomfortable. Cardiac: Patient is tachycardic presently at 120 bpm. Lungs: Bilateral breath sounds with breath sounds decreased throughout no rhonchi rales or wheeze are heard. Abdomen: Bowel sounds present all 4 quads nontender to palpate. I have greeted and performed a rapid initial assessment of this patient. A comprehensive ED assessment and evaluation of the patient, analysis of test results and completion of the medical decision making process will be conducted by additional ED providers. Dictation of this chart was performed using voice recognition software; therefore, there may be some unintended grammatical errors. TRAVEL OUTSIDE OF THE [place] IN LAST 30 DAYS: No - Related Data Allergies/Adverse Reactions: shellfish derived Allergy (Severe, Verified 05/08/19 08:40) Anaphylaxis sumatriptan [From Imitrex] Allergy (Severe, Verified 04/22/20 13:32) Seizures ketorolac tromethamine [From Toradol] Allergy (Intermediate, Verified 05/08/19 08:40) Hives morphine [Morphine] Allergy (Intermediate, Verified 05/08/19 08:40) Hives sulfamethoxazole [From Bactrim] Allergy (Unknown, Verified 05/08/19 08:40) Pruritis trimethoprim [From Bactrim] Allergy (Unknown, Verified 05/08/19 08:40) Pruritis belimumab [From Benlysta] Allergy (Verified 05/08/19 08:40) rash Past Medical History - Past Medical History Cardiac Medical History: Reports: Hx DVT, Hx Hypertension, Hx Pulmonary Embolism Denies: Hx Coronary Artery Disease, Hx Heart Attack, Hx Hypercholesterolemia Pulmonary Medical History: Reports: Hx Asthma, Hx Bronchitis, Hx Pneumonia Denies: Hx COPD, Hx Tuberculosis Neurological Medical History: Reports: Hx Migraine, Hx Seizures - on Keppra last seizure February 2018. Denies: Hx Cerebrovascular Accident Endocrine Medical History: Denies: Hx Diabetes Mellitus Type 1, Hx Diabetes Mellitus Type 2, Hx Hyperthyroidism, Hx Hypothyroidism Renal/ Medical History: Denies: Hx Peritoneal Dialysis GI Medical History: Reports: Hx Gastritis, Hx Gastroesophageal Reflux Disease, Hx Ulcer, Hx Endoscopy. Denies: Hx Cirrhosis, Hx Hepatitis Musculoskeltal Medical History: Reports Hx Arthritis, Reports Hx Systemic Lupus Erythematosus Skin Medical History: Reports Hx Cellulitis Psychiatric Medical History: Reports: Hx Anxiety Denies: Hx Depression Infectious Medical History: Reports: Hx C-Diff, Hx MRSA. Denies: Hx Hepatitis Past Surgical History: Reports: Hx Abdominal Surgery - PEG tube [place], Hx Neurologic Surgery - C-SPINE Fx STABILIZATION, Other - PEG placement 2, Port-A-Cath, odontoid fxr repair late 2016 [employer]. Denies: Hx Hysterectomy - Immunizations Immunizations up to date: Yes Hx Diphtheria, Pertussis, Tetanus Vaccination: Yes Physical Exam - Vital signs Vitals: Temp Pulse Resp BP Pulse Ox 98 F 120 H 16 153/115 H 100 04/22/20 11:45 04/22/20 11:45 04/22/20 11:45 04/22/20 11:45 04/22/20 11:45 Course - Vital Signs Vital signs: Temp Pulse Resp BP Pulse Ox 98 F 120 H 16 152/110 H 100 04/22/20 11:45 04/22/20 11:45 04/22/20 11:45 04/22/20 11:46 04/22/20 11:45
[2020-04-22 14:20] LABS: APPEARANCE,URINE CLEAR; BILIRUBIN,URINE NEGATIVE (NEGATIVE); COLOR,URINE YELLOW; GLUCOSE, URINE NEGATIVE (NEGATIVE); KETONES,URINE TRACE mg/dL (NEGATIVE); PROTEIN,URINE 100 mg/dL (NEGATIVE); URINE SPECIFIC GRAVITY 1.036; UROBILINOGEN,URINE NEGATIVE mg/dL (<2.0)
[2020-04-22 15:54] LABS: ABSOLUTE BASOPHILS # (AUTO) 0.1 10^3/uL (0.0-0.2); ABSOLUTE LYMPHOCYTES (AUTO) 1.6 10^3/uL (0.5-4.7); ABSOLUTE MONOCYTES (AUTO) 0.3 10^3/uL (0.1-1.4); ABSOLUTE NEUT (AUTO) 5.2 10^3/uL (1.7-8.2); BASOPHILS % (AUTO) 0.9 % (0-2); EOSINOPHILS % (AUTO) 0.2 % (0-6); HEMATOCRIT 37.5 % (36.0-47.0); HEMOGLOBIN 12.3 g/dL (12.0-15.5); LYMPHOCYTES % (AUTO) 22.3 % (13-45); MEAN CORPUSCULAR HEMOGLOBIN 30.7 pg (27.0-33.4); MEAN CORPUSCULAR HGB CONC 32.8 g/dL (32.0-36.0); MEAN CORPUSCULAR VOLUME 94 fl (80-97); MONOCYTES % (AUTO) 4.2 % (3-13); PLATELET COUNT 160 10^3/uL (150-450); RED BLOOD COUNT 4.01 10^6/uL (3.72-5.28); RED CELL DISTRIBUTION WIDTH 12.7 % (11.5-14.0); SEGMENTED NEUTROPHILS % (AUTO) 72.4 % (42-78); TOTAL CELLS COUNTED % (AUTO) 100 %; WHITE BLOOD COUNT 7.2 10^3/uL (4.0-10.5)
[2020-04-22] MEDS ORDERED: PROMETHAZINE HCL INJ 25 MG/1 ML VIAL IV ONE (15:59)
[2020-04-22] MEDS ORDERED: HYDROMORPHONE HCL INJ/PF 2 MG/ML AMPULE IV ONE ×2 (16:01→17:17)
--- NOTE | 2020-04-22 16:11 | ER Document Report ---
ED General - General Chief Complaint: Chest Pain Stated Complaint: CHEST PAIN Time Seen by Provider: 04/22/20 13:32 Mode of Arrival: Wheelchair Notes: 24-year-old female presents to the emergency department history of lupus and pulmonary embolus in the past. Presents today with complaint of chest pain with nausea and vomiting unable to keep down her normal oral medications. She takes prednisone, Percocet, clonidine and carvedilol. States that she is contacted her usual physician and was told to come to the emergency department given she is unable to keep her medications. Blood pressure is elevated, she is having chest discomfort and tachycardia. A CTA of the chest is ordered along with labs as a part of the front end triage process. TRAVEL OUTSIDE OF THE [place] IN LAST 30 DAYS: No - Related Data Allergies/Adverse Reactions: shellfish derived Allergy (Severe, Verified 05/08/19 08:40) Anaphylaxis sumatriptan [From Imitrex] Allergy (Severe, Verified 04/22/20 13:32) Seizures ketorolac tromethamine [From Toradol] Allergy (Intermediate, Verified 05/08/19 08:40) Hives morphine [Morphine] Allergy (Intermediate, Verified 05/08/19 08:40) Hives sulfamethoxazole [From Bactrim] Allergy (Unknown, Verified 05/08/19 08:40) Pruritis trimethoprim [From Bactrim] Allergy (Unknown, Verified 05/08/19 08:40) Pruritis belimumab [From Benlysta] Allergy (Verified 05/08/19 08:40) rash Home Medications: forteo, zolpidem, fiorcet prn, xanax prn, tizanidine, velafaxine, percocet, clonidine, bcp, keppra, carvedilol, prednisone Past Medical History - General Information source: Patient - Social History Smoking Status: Never Smoker Chew tobacco use (# tins/day): No Frequency of alcohol use: Occasional Drug Abuse: None Family History: Reviewed & Not Pertinent, CVA, Hypertension, Other - Lupus- mother Patient has homicidal ideation: No - Past Medical History Cardiac Medical History: Reports: Hx DVT, Hx Hypertension, Hx Pulmonary Embolism Denies: Hx Coronary Artery Disease, Hx Heart Attack, Hx Hypercholesterolemia Pulmonary Medical History: Reports: Hx Asthma, Hx Bronchitis, Hx Pneumonia Denies: Hx COPD, Hx Tuberculosis Neurological Medical History: Reports: Hx Migraine, Hx Seizures - on Keppra last seizure February 2018. Denies: Hx Cerebrovascular Accident Endocrine Medical History: Denies: Hx Diabetes Mellitus Type 1, Hx Diabetes Mellitus Type 2, Hx Hyperthyroidism, Hx Hypothyroidism Renal/ Medical History: Denies: Hx Peritoneal Dialysis GI Medical History: Reports: Hx Gastritis, Hx Gastroesophageal Reflux Disease, Hx Ulcer, Hx Endoscopy. Denies: Hx Cirrhosis, Hx Hepatitis Musculoskeletal Medical History: Reports Hx Arthritis, Reports Hx Systemic Lupus Erythematosus Skin Medical History: Reports Hx Cellulitis Psychiatric Medical History: Reports: Hx Anxiety Denies: Hx Depression Infectious Medical History: Reports: Hx C-Diff, Hx MRSA. Denies: Hx Hepatitis Past Surgical History: Reports: Hx Abdominal Surgery - PEG tube Sheppard, Hx Neurologic Surgery - C-SPINE Fx STABILIZATION, Hx Oral Surgery, Hx Vascular Surgery - right upper chest portacath, Other - PEG placement 2, Port-A-Cath, odontoid fxr repair late 2016 [facility]. Denies: Hx Hysterectomy - Immunizations Immunizations up to date: Yes Hx Diphtheria, Pertussis, Tetanus Vaccination: Yes Hx Pneumococcal Vaccination: 02/01/17 Review of Systems - Review of Systems Notes: Constitutional: Negative for fever. HENT: Negative for sore throat. Eyes: Negative for visual changes. Cardiovascular: 1954 chest pain. Respiratory: Negative for shortness of breath. Gastrointestinal: Negative for abdominal pain, vomiting or diarrhea. Genitourinary: Negative for dysuria. Musculoskeletal: Negative for back pain. Skin: Negative for rash. Neurological: Negative for headaches, weakness or numbness. 10 point ROS negative except as marked above and in HPI. Physical Exam - Vital signs Vitals: Temp Pulse Resp BP Pulse Ox 98 F 120 H 16 153/115 H 100 04/22/20 11:45 04/22/20 11:45 04/22/20 11:45 04/22/20 11:45 04/22/20 11:45 - Notes Notes: PHYSICAL EXAMINATION: Physical Exam: General: Well-nourished well-developed 24-year-old female complaining of central chest pain HEENT: NC/AT, pupils equal round and reactive to light, MM moist,nares clear, oropharynx clear, airway patent Neck: supple, no adenopathy, no masses. Good range of motion Lungs: clear, no wheezing, no rales no rhonchi Chest: Tenderness in the midsternal, parasternal regions bilaterally. CVS: Regular rate and rhythm no murmur gallop or rub Abdomen: Soft, active, nontender, no masses, no hepatosplenomegaly Ext: No edema, clubbing or cyanosis. Neuro: Alert and responsive, moving all 4 extremities on command, cranial nerves intact, no focal findings Skin: Intact no open lesions, no rash Course - Re-evaluation Re-evalutation: 04/22/20 18:08 Patient is given IV normal saline, IV Phenergan for nausea, hydromorphone for pain and notes some improvement in the discomfort. She is also given oral clonidine 0.3 mg and carvedilol 6.25 mg for elevated blood pressures and patient also given some oral intake to monitor the stability of her GI symptoms. Presently she is tolerating the oral intake and has received medications. Once the pressure has improved she will be discharged home with Phenergan tablets for the nausea. She has Percocet and prednisone with her home medications. Patient acknowledges a understanding of this plan is and is in agreement. - Vital Signs Vital signs: Temp Pulse Resp BP Pulse Ox 98.2 F 110 H 29 H 164/124 H 99 04/22/20 15:08 04/22/20 15:08 04/22/20 17:38 04/22/20 17:38 04/22/20 17:38 - Laboratory Result Diagrams: 04/22/20 15:28 04/22/20 15:28 Laboratory results interpreted by me: 04/22/20 04/22/20 13:50 15:28 Sodium 136.7 L Carbon Dioxide 20 L Glucose 111 H Total Protein 9.7 H Urine Protein 100 H Urine Ketones TRACE H Leukocyte Esterase Rfl TRACE H 04/22/20 17:17 I have reviewed laboratory data and used this information for the treatment decisions regarding the patient. - Diagnostic Test Radiology reviewed: Image reviewed, Reports reviewed - CTA chest: No acute pulmonary emboli or new lung pathology identified. Discharge - Discharge Clinical Impression: Systemic lupus erythematosus Qualifiers: Systemic lupus erythematosus type: unspecified Systemic lupus erythematosus organ involvement: unspecified Qualified Code(s): M32.9 - Systemic lupus erythematosus, unspecified Hypertension Qualifiers: Hypertension type: unspecified Qualified Code(s): I10 - Essential (primary) hypertension Condition: Good Disposition: HOME, SELF-CARE Additional Instructions: You were seen in the emergency department today with a flareup of systemic lupus erythematosus. Please take your adjusted dose of prednisone. You are given a prescription for Phenergan for the associated nausea. Please monitor your symptoms closely follow-up with your primary doctor as needed. If your symptoms are worsening or if you have other concerns you may return to the emergency department for further evaluation and treatment. HOME CARE INSTRUCTIONS & INFORMATION: Thank you for choosing us for your medical needs. We hope you're satisfied with the care you received. After you leave, you must properly care for your problem and, at the same time, observe its progress. Any condition can change. Some illnesses can change rapidly over hours or days. If your condition worsens, return to the Emergency Department or see your physician promptly. ABOUT YOUR X-RAYS AND EKG'S: If you had an EKG or X-rays taken, they have been read by the Emergency Physician. The X-rays and EKG's will also be read by a Radiologist or After School Counselor within 24 hours. If discrepancies are noted, you will be notified by telephone. Please be certain the ED has a correct telephone number & address where you can be reached. Also, realize that some fractures or abnormalities do not show up on initial X-rays. If your symptoms continue, see your physician. ABOUT YOUR LABORATORY TEST: If you had laboratory tests, the results have been reviewed by the Emergency Physician. Some test results (for example cultures) may not be available for several days. You will be contacted if any test result shows you need additional treatment. Please be certain the ED has a correct telephone number and address where you can be reached. ABOUT YOUR MEDICATIONS: You will receive instructions on how to take your medicine on the prescription label you receive. Additional information may be provided by the Pharmacy. If you have questions afterwards, call the ED for clarification or further instructions. Some prescribed medications may cause drowsiness. Do not perform tasks such as driving a car or operating machinery without consulting your Pharmacist. If you feel you need a refill of pain medication, your condition will need re-evaluation. Please do not call for a r efill of any medication. ABOUT YOUR SIGNATURE: Signature of this document acknowledges to followin. Understanding that you received emergency treatment and that you may be released before al medical problems are known or treated. Please be certain the ED has a correct phone number & address where you can be reached. 2. Acknowledgement that you will arrange for follow-up care as recommended. 3. Authorization for the Emergency Physician to provide information to your follow-up Physician in order to maximize your care. AT ANY TIME, IF YOUR SYMPTOMS CHANGE SIGNIFICANTLY OR WORSEN OR YOU DEVELOP NEW SYMPTOMS, RETURN TO THE EMERGENCY DEPARTMENT IMMEDIATELY FOR RE-EVALUATION. OUR GOAL IS TO PROVIDE EXCELLENT MEDICAL CARE! WE HOPE THAT WE HAVE MET YOUR EXPECTATIONS DURING YOUR EMERGENCY DEPARTMENT VISIT AND THAT YOU FEEL YOU HAVE RECEIVED EXCELLENT CARE! Prescriptions: Promethazine HCl [Phenergan 25 mg Tablet] 1 - 2 tab PO Q6H PRN #15 tablet PRN Reason:
[2020-04-22 16:13] LABS: ALBUMIN 4.5 g/dL (3.5-5.0); ALKALINE PHOSPHATASE 68 U/L (38-126); ANION GAP 10 (5-19); ASPARTATE AMINO TRANSFERASE 19 U/L (14-36); BILIRUBIN,TOTAL 0.3 mg/dL (0.2-1.3); BLOOD UREA NITROGEN 12 mg/dL (7-20); CALCIUM 9.2 mg/dL (8.4-10.2); CARBON DIOXIDE 20 mmol/L (22-30); CHLORIDE 107 mmol/L (98-107); GLUCOSE 111 mg/dL (75-110); POTASSIUM 4.4 mmol/L (3.6-5.0); TOTAL PROTEIN 9.7 g/dL (6.3-8.2)
--- NOTE | 2020-04-22 17:06 | RADIOLOGY REPORT (SQ) ---
EXAM DESCRIPTION: CTA CHEST IMAGES COMPLETED DATE/TIME: 04/22/2020 4:43 pm REASON FOR STUDY: hx pe COMPARISON: Chest x-ray dated 05/08/2019, CT chest dated 03/10/2018 TECHNIQUE: CT scan of the chest performed using helical scanning technique with dynamic intravenous contrast injection. Images reviewed with lung, soft tissue and bone windows. Reconstructed coronal and sagittal MPR images reviewed. Additional 3 dimensional post-processing performed to develop Maximal Intensity Projection images (MA P). All images stored on PACS. All CT scanners at this facility use dose modulation, iterative reconstruction, and/or weight based d osing when appropriate to reduce radiation dose to as low as reasonably achievable (ALARA). [facility]: Dose Right [facility]: CareDose [facility]: Dose Right [facility]: Teradose 4D [facility]: HedgeChatter CONTRAST TYPE AND DOSE: contrast/concentration: Isovue 350.00 mmol/ml; Total Contrast Delivered: 55. 0 ml; Total Saline Delivered: 55.0 ml Contrast bolus not optimized for the pulmonary arteries. RENAL FUNCTION: BUN 12, creatinine 0.66 RADIATION DOSE: CT Rad equipment meets quality standard of care and radiation dose reduction techniq ues were employed. CTDIvol: 6.6 - 14.4 mGy. DLP: 496 mGy-cm. . LIMITATIONS: None. FINDINGS: LUNGS AND PLEURA: No masses, infiltrates, or pneumothorax. No pleural effusions or pleura l calcifications. AORTA AND GREAT VESSELS: No aneurysm. Contrast bolus not optimized for the aorta. HEART: No pericardial effusion. No significant coronary artery calcifications. PULMONARY ARTERIES: Central and proximal branches of the pulmonary arteries are patent. Segmental an d subsegmental branches are not adequately opacified. HILAR AND MEDIASTINAL STRUCTURES: No identified masses or abnormal nodes. HARDWARE: None in the chest. UPPER ABDOMEN: Indeterminate right renal lesion. Hounsfield units measure 42. This is stable dating back to 2017. THYROID AND OTHER SOFT TISSUES: No masses. No adenopathy. BONES: Stable in appearance. 3D MIPS: Confirm above findings. OTHER: No other significant finding. IMPRESSION: No central or proximal pulmonary embolus. Segmental and subsegmental branches are not a dequately opacified. COMMENT: Quality ID # [id number]: Final reports with documentation of one or more dose reduction techniques (e.g., Automated exposure control, adjustment of the mA and/or kV according to patient size, use of iterative reconstruction technique) TECHNICAL DOCUMENTATION: JOB ID: [id number] 2010 [employer]- All Rights Reserved Reading location - IP/workstation name: [email or web address]
[2020-04-22] MEDS ORDERED: CLONIDINE HCL 0.2 MG TABLET PO ONE (17:39)
[2020-04-22] MEDS ORDERED: CARVEDILOL 6.25 MG TABLET PO ONE (17:40)
[2020-04-22 18:54] VITALS: BP 139/105
--- NOTE | 2020-04-22 21:09 | EKG REPORT ---
SEVERITY:- DEFECTIVE ECG - SINUS TACHYCARDIA LEAD LOSS ARTEFACT : Confirmed by: Goyo Beckett MD 22-Apr-2020 21:09:16
== END 2020-04-22 19:15 | disposition home or self-care (01) ==
LOC: ER 11:39
DX: M32.9 Systemic lupus erythematosus, unspecified (principal); I10 Essential (primary) hypertension; R07.9 Chest pain, unspecified; R11.2 Nausea with vomiting, unspecified; R00.0 Tachycardia, unspecified; Z88.8 Allergy status to other drugs, medicaments and biological substances; Z88.2 Allergy status to sulfonamides; Z79.899 Other long term (current) drug therapy
CPT/HCPCS: 93005; 96376; 96361; 99285; 96374; 96375; 36415; 87086; 85025; 81025; 87088; 80053; 81001; 87186; 71275; 93010; A9270 ×2; J2930; J1170; J2550; J2405; J7030; J1642

== ENCOUNTER 2020-05-01 08:35 | Emergency (ER) | payer MEDICARE, MEDICAID ==
[2020-05-01 08:43] VITALS: BP 132/82
[2020-05-01 11:01] LABS: HEMATOCRIT 36.4 % (36.0-47.0); HEMOGLOBIN 11.9 g/dL (12.0-15.5); MEAN CORPUSCULAR HEMOGLOBIN 30.4 pg (27.0-33.4); MEAN CORPUSCULAR HGB CONC 32.6 g/dL (32.0-36.0); MEAN CORPUSCULAR VOLUME 93 fl (80-97); PLATELET COUNT 172 10^3/uL (150-450); RED BLOOD COUNT 3.91 10^6/uL (3.72-5.28); RED CELL DISTRIBUTION WIDTH 13.1 % (11.5-14.0); WHITE BLOOD COUNT 12.8 10^3/uL (4.0-10.5)
[2020-05-01 11:16] LABS: ALBUMIN 4.2 g/dL (3.5-5.0); ALKALINE PHOSPHATASE 70 U/L (38-126); ANION GAP 10 (5-19); ASPARTATE AMINO TRANSFERASE 21 U/L (14-36); BILIRUBIN,DIRECT 0.1 mg/dL (0.0-0.4); BILIRUBIN,TOTAL 0.5 mg/dL (0.2-1.3); BLOOD UREA NITROGEN 15 mg/dL (7-20); CALCIUM 9.1 mg/dL (8.4-10.2); CARBON DIOXIDE 19 mmol/L (22-30); CHLORIDE 106 mmol/L (98-107); GLUCOSE 87 mg/dL (75-110); POTASSIUM 3.7 mmol/L (3.6-5.0); TOTAL PROTEIN 9.1 g/dL (6.3-8.2)
[2020-05-01] MEDS ORDERED: NORMAL SALINE 1000 ML 1,000 ML IV ONE (11:29)
[2020-05-01] MEDS ORDERED: ONDANSETRON HCL INJ/PF 4 MG/2 ML SDV IV ONE (11:29)
[2020-05-01] MEDS ORDERED: DEXTROSE 5%-LACTATED RINGERS 1,000 ML IV ONE ×2 (11:30→12:22)
--- NOTE | 2020-05-01 11:30 | ER Document Report ---
Entered by FIONA LEIJA SCRIBE 05/01/20 0950 Acting as scribe for:ADAMS PUENTES MD ED General - General Chief Complaint: Nausea/Vomiting Stated Complaint: NAUSEA,VOMITING,HEADACHE Time Seen by Provider: 05/01/20 09:30 Mode of Arrival: Ambulatory Information source: Patient Notes: This 24 year old female patient with lupus in pain management on 10mg Oxycodone QID presents to the emergency department today with complaints of nausea and vomiting. Patient moved back to this area on 04/18/20 and this is her second visit to the emergency department. She was seen here on 04/22/20 with nausea, vomiting, and chest pain and she had an extensive work up at that time. She states that her nausea and vomiting got better for a little while and then returned again on 04/27. Patient reports that she has not eaten food since 04/27 and her stools have been loose. Patient states she has been urinating normally. Patient has not vomited in the last 8 hours. TRAVEL OUTSIDE OF THE [place] IN LAST 30 DAYS: No - Related Data Allergies/Adverse Reactions: shellfish derived Allergy (Severe, Verified 05/08/19 08:40) Anaphylaxis sumatriptan [From Imitrex] Allergy (Severe, Verified 04/22/20 13:32) Seizures ketorolac tromethamine [From Toradol] Allergy (Intermediate, Verified 05/08/19 08:40) Hives morphine [Morphine] Allergy (Intermediate, Verified 05/08/19 08:40) Hives sulfamethoxazole [From Bactrim] Allergy (Unknown, Verified 05/08/19 08:40) Pruritis trimethoprim [From Bactrim] Allergy (Unknown, Verified 05/08/19 08:40) Pruritis belimumab [From Benlysta] Allergy (Verified 05/08/19 08:40) rash Past Medical History - General Information source: Patient, [facility] Records - Social History Smoking Status: Never Smoker Cigarette use (# per day): No Frequency of alcohol use: None Drug Abuse: None Lives with: Family Family History: Reviewed & Not Pertinent, CVA, Hypertension, Other - Lupus- mother - Past Medical History Cardiac Medical History: Reports: Hx DVT, Hx Hypertension, Hx Pulmonary Embolism Pulmonary Medical History: Reports: Hx Asthma, Hx Bronchitis, Hx Pneumonia Neurological Medical History: Reports: Hx Migraine, Hx Seizures - on Keppra last seizure February 2018 GI Medical History: Reports: Hx Gastritis, Hx Gastroesophageal Reflux Disease, Hx Ulcer, Hx Endoscopy Musculoskeletal Medical History: Reports Hx Arthritis, Reports Hx Systemic Lupus Erythematosus Skin Medical History: Reports Hx Cellulitis Psychiatric Medical History: Reports: Hx Anxiety Infectious Medical History: Reports: Hx C-Diff, Hx MRSA Past Surgical History: Reports: Hx Abdominal Surgery - PEG tube Sheppard, Hx Neurologic Surgery - C-SPINE Fx STABILIZATION, Hx Oral Surgery, Hx Vascular Surgery - right upper chest portacath, Other - PEG placement 2, Port-A-Cath, odontoid fxr repair late 2016 [facility] - Immunizations Immunizations up to date: Yes Hx Diphtheria, Pertussis, Tetanus Vaccination: Yes Hx Pneumococcal Vaccination: 02/01/17 Review of Systems - Review of Systems Constitutional: See HPI, Diaphoresis, Weakness EENT: No symptoms reported Cardiovascular: See HPI, Lightheaded Respiratory: denies: Cough Gastrointestinal: See HPI, Nausea, Vomiting, Other - loose stool Genitourinary: No symptoms reported Female Genitourinary: No symptoms reported Musculoskeletal: No symptoms reported Skin: No symptoms reported Hematologic/Lymphatic: No symptoms reported Neurological/Psychological: No symptoms reported -: Yes All other systems reviewed and negative Physical Exam - Vital signs Vitals: Temp Pulse Resp BP Pulse Ox 98.7 F 136 H 22 H 132/82 H 100 05/01/20 08:42 05/01/20 08:42 05/01/20 08:42 05/01/20 08:42 05/01/20 08:42 - Notes Notes: Physical Exam: General: Alert, appears well. HEENT: Normocephalic. Atraumatic. PERRL. Extraocular movements intact. Oropharynx clear. Neck: Supple. Non-tender. Respiratory: No respiratory distress. Clear and equal breath sounds bilaterally. Cardiovascular: Tachycardic, regular rhythm. Abdominal: Normal Inspection. Non-tender. No distension. Normal Bowel Sounds. Back: No gross abnormalities. Extremities: Moves all four extremities. Upper extremities: Normal inspection. Normal ROM. Lower extremities: Normal inspection. No edema. Normal ROM. Neurological: Normal cognition. AAOx4. Normal speech. Psychological: Normal affect. Normal Mood. Skin: Warm. Dry. Normal color. Course - Re-evaluation Re-evalutation: 05/01/20 16:52 The patient states that she has not kept down any food in the past 3-1/2 to 4 days. She did not mention that a prescription was called in for her on 04/25/2020 for Keflex to treat urinary tract infection that was found on culture from 04/22/2020. The culture grew Klebsiella pneumonia that was sensitive to everything tested except for ampicillin. She states that she kept down the antibiotics for 2 days and then has been throwing up and not keeping any medicines down since then. The urine on 04/22/2020 had 9 WBCs, the urine today has >182. Both urine showed 3+ bacteria. There are no ketones in the urine today which does not fit a story of no food for up to 4 days. The BUN today was 15 with a creatinine is 0.63 which does not fit the description of the amount of vomiting that she has been having. She does have a long history of ER visits for pain medication, nausea medication, related to her lupus illness. She did move back to [facility] less than 2 weeks ago and this is her second emergency room visit. She has been on chronic pain management for many years. When I told her the plan which was to change her antibiotic, and prescribed more Phenergan which she prefers of Reglan, she states that she still cannot keep anything down. She will be discharged nonetheless with prescriptions for P henergan and Cipro. She is again encouraged to become established again in the community with a primary care provider. - Vital Signs Vital signs: Temp Pulse Resp BP Pulse Ox 98.7 F 136 H 22 H 132/82 H 100 05/01/20 08:42 05/01/20 08:42 05/01/20 08:42 05/01/20 08:42 05/01/20 08:42 - Laboratory Result Diagrams: 05/01/20 10:40 05/01/20 10:40 Laboratory results interpreted by me: 05/01/20 05/01/20 05/01/20 10:40 10:40 13:38 WBC 12.8 H Hgb 11.9 L Band Neutrophils % 1 L Abs Neuts (Manual) 9.0 H Sodium 134.6 L Carbon Dioxide 19 L Total Protein 9.1 H Urine Protein 30 H Urine Blood SMALL H Ur Leukocyte Esterase LARGE H Discharge - Discharge Clinical Impression: Urinary tract infection Qualifiers: Urinary tract infection type: site unspecified Hematuria presence: without hematuria Qualified Code(s): N39.0 - Urinary tract infection, site not specified Nausea & vomiting Qualifiers: Vomiting type: unspecified Vomiting Intractability: non-intractable Qualified Code(s): R11.2 - Nausea with vomiting, unspecified Condition: Stable Disposition: HOME, SELF-CARE Additional Instructions: Urinary Tract Infection Your evaluation indicates that you have a urinary tract infection. This is due to germs growing in the bladder. This is a common problem. This infection usually responds quickly to antibiotics. Your antibiotic should be taken exactly as prescribed. Drink plenty of fluids -- three to four quarts a day. Occasionally, a bladder anesthetic will be prescribed to help stop the feeling of urgency until the antibiotic has a chance to clear the infection. T his may cause your urine to be dark orange. Certain urine infections require a culture. If the doctor obtained a culture, the results will be back in two days. You should call to see if a change in treatment is needed. A repeat urinalysis after you finish treatment is often recommended. The physician will let you know if further testing is required. Call the doctor if you develop fever, chills, flank pain, inability to urinate, or blood in the urine. Nausea or Vomiting, Nonspecific Vomiting (or nausea without vomiting) can be caused by many different problems. Of course, it can mean that something's wrong with the stomach, such as "stomach flu," ulcers, or inflammation. But it can also be a symptom of a problem that has nothing to do with the stomach or intestines. Vomiting is common with severe headaches, earaches, and tonsillitis. We see it with pneumonia or heart attacks. Drugs can cause nausea. Many abdominal problems cause vomiting; for example, gallstones, kidney stones, pancreatitis, and intestinal obstruction (blocked bowels). In most cases, curing the vomiting depends on fixing the problem that caused it. For temporary relief, we may use an anti-nausea medicine. For home use, we can prescribe suppositories, chewable pills, pills that dissolve in the mouth, or liquid anti-nausea drugs. If the vomiting seems to be caused by a problem in the stomach, acid-suppressing drugs may be prescribed as well. It's important to avoid dehydration. Sip clear liquids. Take increasing amounts of fluid over the first 24 hours. Then start small amounts of bland foods (such as dry toast, applesauce, mashed potato). Avoid aspirin, tobacco, and alcohol. Gradually resume your usual diet. If the vomiting worsens, if the problem that's making you vomit worsens, or if there's evidence of bleeding in the stomach (such as black, tarry stool, bloody or black vomit, or lightheadedness), you should return immediately. Call your doctor if you aren't improved in 24 to 36 hours. Take the medications as prescribed for your urinary tract infection and your nauseousness. Stop the Keflex for now, pending results of the urine culture done today. Drink small sips of cool clear liquids throughout the day if you are feeling nauseous. Follow-up with a local primary care provider to manage your medical problems. RETURN TO THE EMERGENCY ROOM IF ANY NEW OR WORSENING SYMPTOMS. Prescriptions: Ciprofloxacin HCl 250 mg PO BID #10 tablet Promethazine HCl [Phenergan 25 mg Tablet] 25 - 50 mg PO ASDIR PRN #20 tablet PRN Reason: I personally performed the services described in the documentation, reviewed and edited the documentation which was dictated to the scribe in my presence, and it accurately records my words and actions.
[2020-05-01 11:54] LABS: ABSOLUTE LYMPHOCYTES# (MANUAL) 3.1 10^3/uL (0.5-4.7); ABSOLUTE MONOCYTES # (MANUAL) 0.6 10^3/uL (0.1-1.4); BAND NEUTROPHILS % (MANUAL) 1 % (3-5); BASOPHILS % (MANUAL) 0 % (0-2); EOSINOPHILS % (MANUAL) 1 % (0-6); LYMPHOCYTES % (MANUAL) 24 % (13-45); METAMYELOCYTES % (MANUAL) 1 % (0-1); MONOCYTES % (MANUAL) 5 % (3-13); SEGMENTED NEUTROPHILS % (MAN) 68 % (42-78); TOTAL CELLS COUNTED 100
[2020-05-01 11:55] LABS: RBC MORPHOLOGY COMMENT NORMO-CYTIC/CHROMIC
[2020-05-01 11:56] LABS: PLATELET COMMENT ADEQUATE
[2020-05-01] MEDS ORDERED: HYDROMORPHONE HCL INJ/PF 2 MG/ML AMPULE IV ONE ×2 (12:22→14:25)
[2020-05-01 13:58] LABS: APPEARANCE,URINE SLIGHTLY-CLOUDY; BILIRUBIN,URINE NEGATIVE (NEGATIVE); COLOR,URINE YELLOW; GLUCOSE, URINE NEGATIVE (NEGATIVE); KETONES,URINE NEGATIVE (NEGATIVE); LEUKOCYTE ESTERASE,URINE LARGE (NEGATIVE); NITRITE,URINE NEGATIVE (NEGATIVE); PROTEIN,URINE 30 mg/dL (NEGATIVE); URINE SPECIFIC GRAVITY 1.018; UROBILINOGEN,URINE NEGATIVE mg/dL (<2.0)
[2020-05-01] MEDS ORDERED: PROMETHAZINE HCL INJ 25 MG/1 ML VIAL IV ONE ×2 (14:25→16:58)
[2020-05-01] MEDS ORDERED: CEFTRIAXONE 1 GM/D5W RTU 1 GM/50 ML RTUPB IV ONE (14:25)
== END 2020-05-01 17:44 | disposition home or self-care (01) ==
LOC: ER 08:35
DX: N39.0 Urinary tract infection, site not specified (principal); R11.2 Nausea with vomiting, unspecified; R51 Headache; R07.9 Chest pain, unspecified; R19.7 Diarrhea, unspecified; Z79.899 Other long term (current) drug therapy; Z88.8 Allergy status to other drugs, medicaments and biological substances; Z88.2 Allergy status to sulfonamides; I10 Essential (primary) hypertension; J45.909 Unspecified asthma, uncomplicated
CPT/HCPCS: 36591; 96376; 99283; 96361; 96375; 96365; 36415; 87086; 85025; 87088; 80053; 81001; J1170; J2550; J2405; J7121; J0696; J1642; 87186

== ENCOUNTER 2020-05-18 16:55 | Emergency (ER) | payer MEDICARE, MEDICAID ==
--- NOTE | 2020-05-18 17:37 | ER Document Report ---
ED Medical Screen (RME) - General Chief Complaint: Probable Seizure Stated Complaint: POSSIBLE SEIZURE,HEADACHE Time Seen by Provider: 05/18/20 17:28 Mode of Arrival: Wheelchair Information source: Patient Notes: 24-year-old female presents to ED for 4 seizures today. She went to her mother's house about 11 AM and had not had any seizures she had been in her mother's house a while and about 2:00 she started having seizures and has had 4 seizures since then. The first 3 seizures she laid down and was okay had not injured herself and so she stayed home because her neurologist had told her as long as she did not injure herself she could stay home and rest but the last seizure she was walking when she had the seizure and she hit her head and back on a table when she had a seizure so mother called grand father who brought her to the emergency room because she had been told anytime she hit her head or body and injured herself she needed to go to the emergency room. I have greeted and performed a rapid initial assessment of this patient. A comprehensive ED assessment and evaluation of the patient, analysis of test results and completion of medical decision making process will be conducted by an additional ED providers. TRAVEL OUTSIDE OF THE [place] IN LAST 30 DAYS: No - Related Data Allergies/Adverse Reactions: shellfish derived Allergy (Severe, Verified 05/08/19 08:40) Anaphylaxis sumatriptan [From Imitrex] Allergy (Severe, Verified 04/22/20 13:32) Seizures ketorolac tromethamine [From Toradol] Allergy (Intermediate, Verified 05/08/19 08:40) Hives morphine [Morphine] Allergy (Intermediate, Verified 05/08/19 08:40) Hives sulfamethoxazole [From Bactrim] Allergy (Unknown, Verified 05/08/19 08:40) Pruritis trimethoprim [From Bactrim] Allergy (Unknown, Verified 05/08/19 08:40) Pruritis belimumab [From Benlysta] Allergy (Verified 05/08/19 08:40) rash Past Medical History - Past Medical History Cardiac Medical History: Reports: Hx DVT, Hx Hypertension, Hx Pulmonary Embolism Denies: Hx Coronary Artery Disease, Hx Heart Attack, Hx Hypercholesterolemia Pulmonary Medical History: Reports: Hx Asthma, Hx Bronchitis, Hx Pneumonia Denies: Hx COPD, Hx Tuberculosis Neurological Medical History: Reports: Hx Migraine, Hx Seizures - on Keppra last seizure February 2018. Denies: Hx Cerebrovascular Accident Endocrine Medical History: Denies: Hx Diabetes Mellitus Type 1, Hx Diabetes Mellitus Type 2, Hx Hyperthyroidism, Hx Hypothyroidism Renal/ Medical History: Denies: Hx Peritoneal Dialysis GI Medical History: Reports: Hx Gastritis, Hx Gastroesophageal Reflux Disease, Hx Ulcer, Hx Endoscopy. Denies: Hx Cirrhosis, Hx Hepatitis Musculoskeltal Medical History: Reports Hx Arthritis, Reports Hx Systemic Lupus Erythematosus Skin Medical History: Reports Hx Cellulitis Psychiatric Medical History: Reports: Hx Anxiety Denies: Hx Depression Infectious Medical History: Reports: Hx C-Diff, Hx MRSA. Denies: Hx Hepatitis Past Surgical History: Reports: Hx Abdominal Surgery - PEG tube Sheppard, Hx Neurologic Surgery - C-SPINE Fx STABILIZATION, Hx Oral Surgery, Hx Vascular Surgery - right upper chest portacath, Other - PEG placement 2, Port-A-Cath, odontoid fxr repair late 2016 [employer]. Denies: Hx Hysterectomy - Immunizations Immunizations up to date: Yes Hx Diphtheria, Pertussis, Tetanus Vaccination: Yes Physical Exam - Vital signs Vitals: Temp Pulse Resp BP Pulse Ox 98.7 F 97 16 140/101 H 100 05/18/20 17:00 05/18/20 17:00 05/18/20 17:00 05/18/20 17:00 05/18/20 17:00 Course - Vital Signs Vital signs: Temp Pulse Resp BP Pulse Ox 98.7 F 97 16 140/101 H 100 05/18/20 17:00 05/18/20 17:00 05/18/20 17:00 05/18/20 17:00 05/18/20 17:00
--- NOTE | 2020-05-18 18:21 | RADIOLOGY REPORT (SQ) ---
EXAM DESCRIPTION: T SPINE AP/LAT IMAGES COMPLETED DATE/TIME: 05/18/2020 5:53 pm REASON FOR STUDY: pain upper back COMPARISON: CT 04/22/2020 NUMBER OF VIEWS: Two views. TECHNIQUE: AP and lateral radiographic images acquired of the thoracic spine. LIMITATIONS: None. FINDINGS: MINERALIZATION: Normal. ALIGNMENT: Similar kyphoscoliosis. VERTEBRAE: Multiple compression deformities in the thoracic spine which appear similar to the April CT given differences in technique. DISCS: Multilevel disc space narrowing with osteophytes. HARDWARE: None in the spine. MEDIASTINUM AND SOFT TISSUES: Normal heart size and aortic contour. No soft tissue abnormality. VISUALIZED LUNG BOGGS: Clear. OTHER: No other significant finding. IMPRESSION: Multiple compression deformities in the thoracic spine which appear similar to the April CT given differences in technique. TECHNICAL DOCUMENTATION: JOB ID: [id number] [place]-72 2010 [employer]- All Rights Reserved Reading location - IP/workstation name: [email or web address]
--- NOTE | 2020-05-18 18:23 | RADIOLOGY REPORT (SQ) ---
EXAM DESCRIPTION: CT HEAD WITHOUT IMAGES COMPLETED DATE/TIME: 05/18/2020 6:14 pm REASON FOR STUDY: Multiple seizures last one head neck injury COMPARISON: 01/28/2018 TECHNIQUE: Axial images acquired through the brain without intravenous contrast. Images reviewed wit h bone, brain and subdural windows. Images stored on PACS. All CT scanners at this facility use dose modulation, iterative reconstruction, and/or weight based d osing when appropriate to reduce radiation dose to as low as reasonably achievable (ALARA). [facility]: Dose Right [facility]: CareDose [facility]: Dose Right [facility]: Teradose 4D [facility]: [employer] RADIATION DOSE: CT Rad equipment meets quality standard of care and radiation dose reduction techniq ues were employed. CTDIvol: 53.2 mGy. DLP: 991 mGy-cm.. LIMITATIONS: None. FINDINGS: VENTRICLES: Normal size and contour. CEREBRUM: No masses. No hemorrhage. No midline shift. Age appropriate white matter. No evidence for a cute infarction. CEREBELLUM: No masses. No hemorrhage. No alteration of density. No evidence for acute infarction. EXTRA-AXIAL SPACES: No fluid collections. ORBITS AND GLOBE: No intra- or extraconal masses. Normal contour of globe without masses. CALVARIUM: No fracture. PARANASAL SINUSES: No fluid or mucosal thickening. SOFT TISSUES: No mass or hematoma. OTHER: No other significant finding. IMPRESSION: NO ACUTE INTRACRANIAL FINDINGS. EVIDENCE OF ACUTE STROKE: NO. TECHNICAL DOCUMENTATION: JOB ID: [id number] [place]-[id number] Quality ID # [id number]: Final reports with documentation of one or more dose reduction techniques (e.g., Au tomated exposure control, adjustment of the mA and/or kV according to patient size, use of iterative reconstruction technique) 2010 [employer]- All Rights Reserved Reading location - IP/workstation name: [email or web address]
--- NOTE | 2020-05-18 19:16 | ER Document Report ---
ED Seizure - General Chief Complaint: Probable Seizure Stated Complaint: POSSIBLE SEIZURE,HEADACHE Time Seen by Provider: 05/18/20 17:28 Mode of Arrival: Wheelchair - HPI Notes: 24-year-old female presents following seizures at home. Patient states she has a history of seizures, it is thought to be from lupus affecting her nervous system. She is on Keppra, reports compliance with this. She states that she has had 4 seizures today, they last a couple seconds. Usually after seizure she just lays down and rest if she did not injure herself. However during her last seizure, she was in the kitchen and fell, she hit her head on the table. She reports that she broke her neck in the past from having a seizure. She complains of pain to the right side of her head. - Related Data Allergies/Adverse Reactions: shellfish derived Allergy (Severe, Verified 05/08/19 08:40) Anaphylaxis sumatriptan [From Imitrex] Allergy (Severe, Verified 04/22/20 13:32) Seizures ketorolac tromethamine [From Toradol] Allergy (Intermediate, Verified 05/08/19 08:40) Hives morphine [Morphine] Allergy (Intermediate, Verified 05/08/19 08:40) Hives sulfamethoxazole [From Bactrim] Allergy (Unknown, Verified 05/08/19 08:40) Pruritis trimethoprim [From Bactrim] Allergy (Unknown, Verified 05/08/19 08:40) Pruritis belimumab [From Benlysta] Allergy (Verified 05/08/19 08:40) rash Home Medications: Keppra liquid. planquinel. cellcept Past Medical History - General Information source: Patient - Social History Smoking Status: Never Smoker Chew tobacco use (# tins/day): No Frequency of alcohol use: Occasional Drug Abuse: None Family History: Reviewed & Not Pertinent, CVA, Hypertension, Other - Lupus- mother - Past Medical History Cardiac Medical History: Reports: Hx DVT, Hx Hypertension, Hx Pulmonary Embolism Denies: Hx Coronary Artery Disease, Hx Heart Attack, Hx Hypercholesterolemia Pulmonary Medical History: Reports: Hx Asthma, Hx Bronchitis, Hx Pneumonia Denies: Hx COPD, Hx Tuberculosis Neurological Medical History: Reports: Hx Migraine, Hx Seizures - on Keppra last seizure January 2019. Denies: Hx Cerebrovascular Accident Endocrine Medical History: Denies: Hx Diabetes Mellitus Type 1, Hx Diabetes Mellitus Type 2, Hx Hyperthyroidism, Hx Hypothyroidism Renal/ Medical History: Denies: Hx Peritoneal Dialysis GI Medical History: Reports: Hx Gastritis, Hx Gastroesophageal Reflux Disease, Hx Ulcer, Hx Endoscopy. Denies: Hx Cirrhosis, Hx Hepatitis Musculoskeletal Medical History: Reports Hx Arthritis, Reports Hx Systemic Lupus Erythematosus Skin Medical History: Reports Hx Cellulitis Psychiatric Medical History: Reports: Hx Anxiety Denies: Hx Depression Infectious Medical History: Reports: Hx C-Diff, Hx MRSA. Denies: Hx Hepatitis Past Surgical History: Reports: Hx Abdominal Surgery - PEG tube Sheppard, Hx Neurologic Surgery - C-SPINE Fx STABILIZATION, Hx Oral Surgery, Hx Vascular Surgery - right upper chest portacath, Other - PEG placement 2, Port-A-Cath, odontoid fxr repair late 2017 [employer]. Denies: Hx Hysterectomy - Immunizations Immunizations up to date: Yes Hx Diphtheria, Pertussis, Tetanus Vaccination: Yes Hx Pneumococcal Vaccination: 02/01/17 Review of Systems - Review of Systems Constitutional: No symptoms reported EENT: No symptoms reported Cardiovascular: No symptoms reported Respiratory: No symptoms reported Gastrointestinal: No symptoms reported Genitourinary: No symptoms reported Female Genitourinary: No symptoms reported Musculoskeletal: Neck pain Skin: No symptoms reported Hematologic/Lymphatic: No symptoms reported Neurological/Psychological: See HPI Physical Exam - Vital signs Vitals: Temp Pulse Resp BP Pulse Ox 98.7 F 97 16 140/101 H 100 05/18/20 17:00 05/18/20 17:00 05/18/20 17:00 05/18/20 17:00 05/18/20 17:00 Interpretation: Normal - General General appearance: Appears well In distress: None - HEENT Head: Normocephalic, Atraumatic. No: Ecchymosis, Open wounds Extraocular movements intact: Yes Pupils: PERRL Neck: Other - Tender numbness to right lateral musculature, there is no midline tenderness - Respiratory Breath sounds: Normal - Cardiovascular Rhythm: Regular Heart sounds: Normal auscultation - Abdominal Bowel sounds: Normal Tenderness: Nontender - Extremities General upper extremity: Normal inspection General lower extremity: Normal inspection - Neurological Neuro grossly intact: Yes Cognition: Normal Orientation: AAOx4 Speech: Normal Cranial nerves: Normal Cerebellar coordination: Normal Motor strength normal: LUE, RUE, LLE, RLE Sensory: Normal - Psychological Associated symptoms: Normal affect - Skin Skin Temperature: Warm Course - Re-evaluation Re-evalutation: 24-year-old female with history of seizures on Keppra here for multiple seizures at home. Patient expects is that her biggest concern is neck injury, apparently has broken her neck in the past from having a seizure. She is in a c-collar. CT C-spine and head CT have been ordered. She currently is neurologically intact. Her vitals are stable. I do not see major signs of head trauma. 05/18/20 19:34 Informed by nursing that patient refused Tylenol, stating that she was told not to take it secondary to her lupus. Have ordered a lidocaine patch. Per patient, Dilaudid works although she has a listed allergy to morphine 05/18/20 21:04 Called to our radiology department given that the CT C-spine has not yet been read, tech is informed me that images were never sent, radiology should be reading it and delivering read shortly CT C-spine resulted and was negative for fracture. Patient did receive 2 doses of Dilaudid in the emergency department per her request. Her c-collar was removed and C-spine cleared. She was discharged in stable condition. She will be following up with neurology. - Vital Signs Vital signs: Temp Pulse Resp BP Pulse Ox 98.5 F 97 23 H 137/117 H 99 05/18/20 23:29 05/18/20 17:00 05/18/20 22:40 05/18/20 22:57 05/18/20 22:57 - Laboratory Result Diagrams: 05/18/20 18:49 Laboratory results interpreted by me: 05/18/20 18:49 Chloride 112 H Carbon Dioxide 21 L Total Protein 9.4 H - Diagnostic Test Radiology reviewed: Image reviewed, Reports reviewed Discharge - Discharge Clinical Impression: Seizure Condition: Stable Disposition: HOME, SELF-CARE Additional Instructions: Please continue all medications as prescribed. Please follow-up with your neurologist. Return to the ED for any concerning symptoms.
[2020-05-18 19:23] LABS: ALBUMIN 4.2 g/dL (3.5-5.0); ALKALINE PHOSPHATASE 75 U/L (38-126); ANION GAP 7 (5-19); ASPARTATE AMINO TRANSFERASE 22 U/L (14-36); BILIRUBIN,TOTAL 0.4 mg/dL (0.2-1.3); BLOOD UREA NITROGEN 11 mg/dL (7-20); CALCIUM 9.4 mg/dL (8.4-10.2); CARBON DIOXIDE 21 mmol/L (22-30); CHLORIDE 112 mmol/L (98-107); GLUCOSE 97 mg/dL (75-110); POTASSIUM 3.8 mmol/L (3.6-5.0); TOTAL PROTEIN 9.4 g/dL (6.3-8.2)
[2020-05-18] MEDS ORDERED: LEVETIRACETAM 1000 MG/NACL-ISO 1,000 MG/100 ML RTUPB IV ONE (19:30)
[2020-05-18] MEDS ORDERED: ACETAMINOPHEN 325 MG TABLET PO ONE (19:31)
[2020-05-18] MEDS ORDERED: LIDOCAINE 5% (700 MG) TRANSDERMAL ADH..PATCH TP ONE (19:33)
[2020-05-18] MEDS ORDERED: HYDROMORPHONE HCL INJ/PF 2 MG/ML AMPULE IV ONE ×2 (19:35→22:30)
--- NOTE | 2020-05-18 22:05 | RADIOLOGY REPORT (SQ) ---
CT cervical spine without contrast on 05/18/2020 at 6:05 PM CLINICAL INDICATION: Neck injury after seizure, pain TECHNIQUE: Multiple axial images are obtained throughout the cervical spine without the administration of contrast. Sagittal and coronal reformatted images are also performed and reviewed. This exam was performed according to our departmental dose-optimization program, which includes automated exposure control, adjustment of the mA and/or kV according to patient size and/or use of iterative reconstruction technique. Total DLP is 350.26 mGy*cm. COMPARISON: 01/28/2018 FINDINGS: There is again noted a single screw traversing the prior type II odontoid fracture that remains ununited with continued mild distal distraction of the odontoid fracture fragment. The distal aspect of the screw again extends posterior to the clivus without definite hardware complication. Reformatted images reveal normal alignment of the cervical spine. There are no acute fracture lines. No definite disc herniation is noted. IMPRESSION: Stable old ununited but internally fixated type II odontoid fracture with no acute abnormality.
[2020-05-18 23:28] VITALS: BP 137/117
== END 2020-05-18 21:53 | disposition home or self-care (01) ==
LOC: ER 16:55
DX: R56.9 Unspecified convulsions (principal); Z79.899 Other long term (current) drug therapy; R51 Headache; M54.2 Cervicalgia; W19.XXXA Unspecified fall, initial encounter; W22.03XA Walked into furniture, initial encounter; I10 Essential (primary) hypertension; J45.909 Unspecified asthma, uncomplicated; Z87.892 Personal history of anaphylaxis; Z91.013 Allergy to seafood; Z88.8 Allergy status to other drugs, medicaments and biological substances; Z88.6 Allergy status to analgesic agent; Z88.5 Allergy status to narcotic agent; Z88.1 Allergy status to other antibiotic agents
CPT/HCPCS: 96376; 99285; 96374; 96375; 36415; 80177; 84703; 80053; 72070; 70450; 72125; J1170; A9270; J1953; J1642

== ENCOUNTER 2020-06-08 08:50 | Emergency (ER) | payer MEDICARE, MEDICAID ==
[2020-06-08 08:59] VITALS: BP 125/94
--- NOTE | 2020-06-08 10:16 | ER Document Report ---
ED General - General Chief Complaint: Pain All Over Stated Complaint: BODY PAIN Time Seen by Provider: 06/08/20 10:15 Primary Care Provider: KIKA AVILA MD [COMMUNITY BASED STAFF] - Follow up in 3-5 days BEBETO CANSECO DO [NO LOCAL MD] - Follow up as needed TRAVEL OUTSIDE OF THE [place] IN LAST 30 DAYS: No - HPI Notes: 24-year-old female history of lupus, osteoporosis, hypertension, GERD and seizures presents to the emergency room today for evaluation of nausea vomiting, decreased urine output, body pain and states this feels like her typical "lupus flareup". Patient states for the last 6 days she has not been able to take her medications due to nausea and vomiting, patient has been taking [id number] ODT Phenergan and Zofran without relief. Patient states she takes Percocet 10 mg 4 times daily, Tazidime, Flexeril, Protonix, Plaquenil, CellCept, Keppra, cl onidine and lisinopril as well as her control which progesterone but due to her recent nausea she has been able to take any. 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 Patient states that she typically has lupus flareups which requires her to come to the emergency room when she has been vomiting for days. lmp x 3 weeks ago. Denies fevers, chills, chest pain,palpitations, shortness of breath, dyspnea, nausea, diarrhea, abdominal pain, hematuria,blurred vision, double vision, loss of vision, speech changes, LH, dizziness, syncope, headaches, wheezing, ST, URI, neck pain, weakness, bowel or bladder dysfunction, saddle anesthesia, numbness or tingling in bilateral upper or lower extremities equally, muscle paralysis, weakness in bilateral upper or lower extremities equally or rash. Denies IV drug use. MEDICATIONS: I agree with the patient medications as charted by the RN. ALLERGIES: I agree with the allergies as charted by the RN. PAST MEDICAL HISTORY/PAST SURGICAL HISTORY: Reviewed and agree as charted by RN. SOCIAL HISTORY: Reviewed and agree as charted by RN. FAMILY HISTORY: No significant familial comorbid conditions directly related to patient complaint EXAM: Reviewed vital signs as charted by RN. REVIEW OF SYSTEMS:reviewed vital signs by RN CONSTITUTIONAL : Denies fever, chills, or sweats. Denies recent illness. EENT: Denies eye, ear, throat, or mouth pain or symptoms. Denies nasal or sinus congestion or discharge. Denies throat, tongue, or mouth swelling or difficulty swallowing. CARDIOVASCULAR: Denies chest pain. Denies palpitations or racing or irregular heart beat. Denies ankle edema. RESPIRATORY: Denies cough, cold, or chest congestion. Denies shortness of breath, difficulty breathing, or wheezing. GASTROINTESTINAL: reports nausea, vomiting. Denies abdominal pain or distention. Denies diarrhea. Denies blood in vomitus, stools, or per rectum. Denies black, tarry stools. Denies constipation. GENITOURINARY: Denies difficulty urinating, painful urination, burning, frequency, blood in urine, or discharge. FEMALE GENITOURINARY: Denies vaginal bleeding, heavy or abnormal periods, irregular periods. Denies vaginal discharge or odor. MUSCULOSKELETAL: Denies back or neck pain or stiffness. Denies joint pain or swelling. SKIN: Denies rash, lesions or sores. HEMATOLOGIC : Denies easy bruising or bleeding. LYMPHATIC: Denies swollen, enlarged glands. NEUROLOGICAL: Denies confusion or altered mental status. Denies passing out or loss of consciousness. Denies dizziness or lightheadedness. Denies headache. Denies weakness or paralysis or loss of use of either side. Denies problems with gait or speech. Denies sensory loss, numbness, or tingling. Denies seizures. PSYCHIATRIC: Denies anxiety or stress. Denies depression, suicidal ideation, or homicidal ideation. ALL OTHER SYSTEMS REVIEWED AND NEGATIVE. PHYSICAL EXAMINATION: GENERAL: Well-appearing, well-nourished and in no acute distress. HEAD: Atraumatic, normocephalic. EYES: Pupils equal round and reactive to light, extraocular movements intact, conjunctiva are normal. ENT: Nares patent, oropharynx clear without exudates. Moist mucous membranes. NECK: Normal range of motion, supple without lymphadenopathy LUNGS: Breath sounds clear to auscultation bilaterally and equal. No wheezes rales or rhonchi. HEART: Regular rate and rhythm without murmurs ABDOMEN: Soft, nontender, nondistended abdomen. No guarding, no rebound. No masses appreciated. No CVA tenderness appreciated Female : deferred Musculoskeletal: Normal range of motion, no pitting or edema. No cyanosis. NEUROLOGICAL: Cranial nerves grossly intact. Normal speech, normal gait. Normal sensory, motor exams PSYCH: Normal mood, normal affect. SKIN: Warm, Dry, normal turgor, no rashes or lesions noted. Dictation was performed using [email or web address] recognition software - Related Data Allergies/Adverse Reactions: shellfish derived Allergy (Severe, Verified 05/08/19 08:40) Anaphylaxis sumatriptan [From Imitrex] Allergy (Severe, Verified 04/22/20 13:32) Seizures ketorolac tromethamine [From Toradol] Allergy (Intermediate, Verified 05/08/19 08:40) Hives morphine [Morphine] Allergy (Intermediate, Verified 05/08/19 08:40) Hives sulfamethoxazole [From Bactrim] Allergy (Unknown, Verified 05/08/19 08:40) Pruritis trimethoprim [From Bactrim] Allergy (Unknown, Verified 05/08/19 08:40) Pruritis belimumab [From Benlysta] Allergy (Verified 05/08/19 08:40) rash Home Medications: Plaquinel, Keppra, Lisinopril, Clonidine, Ambien, Tizanidine, Phenergan, Percocet 10-325, Past Medical History - General Information source: Patient - Social History Smoking Status: Never Smoker Frequency of alcohol use: Social Drug Abuse: None Family History: Reviewed & Not Pertinent, CVA, Hypertension, Other - Lupus- mother - Past Medical History Cardiac Medical History: Reports: Hx DVT, Hx Hypertension, Hx Pulmonary Embolism Denies: Hx Coronary Artery Disease, Hx Heart Attack, Hx Hypercholesterolemia Pulmonary Medical History: Reports: Hx Asthma, Hx Bronchitis, Hx Pneumonia Denies: Hx COPD, Hx Tuberculosis Neurological Medical History: Reports: Hx Migraine, Hx Seizures - on Keppra last seizure January 2019. Denies: Hx Cerebrovascular Accident Endocrine Medical History: Denies: Hx Diabetes Mellitus Type 1, Hx Diabetes Mellitus Type 2, Hx Hyperthyroidism, Hx Hypothyroidism Renal/ Medical History: Denies: Hx Peritoneal Dialysis GI Medical History: Reports: Hx Gastritis, Hx Gastroesophageal Reflux Disease, Hx Ulcer, Hx Endoscopy. Denies: Hx Cirrhosis, Hx Hepatitis Musculoskeletal Medical History: Reports Hx Arthritis, Reports Hx Systemic Lupus Erythematosus Skin Medical History: Reports Hx Cellulitis Psychiatric Medical History: Reports: Hx Anxiety Denies: Hx Depression Infectious Medical History: Reports: Hx C-Diff, Hx MRSA. Denies: Hx Hepatitis Past Surgical History: Reports: Hx Abdominal Surgery - PEG tube Sheppard, Hx Neurologic Surgery - C-SPINE Fx STABILIZATION, Hx Oral Surgery, Hx Vascular Surgery - right upper chest portacath, Other - PEG placement 2, Port-A-Cath, odontoid fxr repair late 2016 [employer]. Denies: Hx Hysterectomy - Immunizations Immunizations up to date: Yes Hx Diphtheria, Pertussis, Tetanus Vaccination: Yes Hx Pneumococcal Vaccination: 02/01/17 Review of Systems - Review of Systems Constitutional: See HPI EENT: No symptoms reported Cardiovascular: No symptoms reported Respiratory: No symptoms reported Gastrointestinal: Nausea, Vomiting, Poor appetite, Poor fluid intake Genitourinary: No symptoms reported Female Genitourinary: No symptoms reported Musculoskeletal: No symptoms reported Skin: No symptoms reported Hematologic/Lymphatic: No symptoms reported Neurological/Psychological: No symptoms reported Physical Exam - Vital signs Vitals: Temp Pulse Resp BP Pulse Ox 98.4 F 91 20 125/94 H 100 06/08/20 08:58 06/08/20 08:58 06/08/20 08:58 06/08/20 08:58 06/08/20 08:58 Course - Re-evaluation Re-evalutation: 06/08/20 12:41 Afebrile vital stable no distress. Exam normal. CBC negative for leukocytosis. CMP negative for hepatic or renal dysfunction, no electrolyte disturbances. Lipase normal. Urinalysis does show trace leukoesterase, will culture. Due to the patient having a history of lupus and being on lupus medication, will empirically treat with prophylactic antibiotics of Macrobid twice a day for 5 days pending urine culture. Patient's urinalysis was negative for ketones, patient states she has been nauseous and vomiting for the last 5 days. Patient's BUN today is 7 with her creatinine is 0.63, which should be elevated the patient was dehydrated from vomiting for the last 4 days. Patient receives 0.5 mg of Dilaudid, 1 L of fluids. Patient given 8 mg of Zofran and 25 mg of Phenergan IV . patient CRP was normal. Patient states when she typically comes here for her lupus exacerbations she gets 125 Solu-Medrol, 1 mg of Dilaudid. Patient states that she usually gets 1 mg of Dilaudid and was upset that I would not prescribe her 1 mg of Dilaudid although I did prescribe her 0.5 mg D ilaudid patient felt that this was not sufficient to manage her chronic pain. I spent more than 45 minutes reviewing this patient's chart due to her extensive medical history and multiple ER visits with multiple administrations of opioids to help manage her lupus and chronic pain. When doing [facility] for controlled substances, patient is prescribed 120 tablets of 10mg-325 hydrocodone every 30 days as well as Xanax as well as Ambien. I discussed with patient that she needs to speak with her dimensional engineer as well as her primary care provider for pain is not being controlled. I also discussed with the patient that the emergency room does not manage chronic pain. I also expressed to the patient that it's unfortunate she feels that her chronic pain was not managed here today with a workup, medication administration and considering her vital signs, lab work did not indicate any severe pain, I did not feel it prudent to give more intravenous Dilaudid. patient was laying in bed comfortable, playing on her phone, at times reading a book when I came into the room to talk to her did not appear to be in severe pain or even moderate pain. At no point did patient seen that she needed any more analgesic. I did prescribe her an oral [place] which she states that she vomited this up. I discussed with her that we can also do rectal suppositories if she feels like she cannot take oral due to her hyperemesis, patient states she refused to do rectal suppositories because she "does not like them". Patient states that she will just go to another hospital for IV Dilaudid for her pain management. I did discuss with the patient that she does need to contact her dimensional engineer and her primary care she feels like her outpatient therapy for her lupus is not being controlled and that there is likely pain contract that she is in. I discussed with patient that she can return to the emergency room anytime for any worsening symptoms, fever, chest pain, shortness of breath, abdominal pain, etc. We will happily address any of her needs and look at the whole picture when pre scribing for her in the emergency room so that we give her safe and effective care to manage any of her medical complaints. Patient was discharged home with strict instructions to return if her symptoms get worse and to consult and be evaluated by her dimensional engineer and primary care within the next 24 to 48 hours - Vital Signs Vital signs: Temp Pulse Resp BP Pulse Ox 98.4 F 91 20 125/94 H 100 06/08/20 08:58 06/08/20 08:58 06/08/20 08:58 06/08/20 08:58 06/08/20 08:58 - Laboratory Result Diagrams: 06/08/20 11:30 06/08/20 11:30 Laboratory results interpreted by me: 06/08/20 06/08/20 06/08/20 11:30 11:30 13:00 RBC 3.45 L Hgb 10.5 L Hct 31.2 L Chloride 111 H BUN 6 L Creatinine 0.48 L Total Protein 8.4 H Ur Leukocyte Esterase TRACE H Critical Care Note - Critical Care Note Total time excluding time spent on procedures (mins): 45 Comments: Pain management, reviewing all the notes regarding her chronic pain, reviewing the [place] controlled substance database, calling her primary care provider to see if she is in a pain contract, etc Discharge - Discharge Clinical Impression: Vomiting, Anemia, Lupus, Chronic pain, longterm (current) use of opiate analgesic Condition: Stable Disposition: HOME, SELF-CARE Instructions: Antinausea Medication ([facility]), Intravenous (IV) Fluids ([facility]), Vomiting ([facility]) Additional Instructions: Vomiting Vomiting can be part of many illnesses. Most cases of vomiting are due to gastroenteritis, usually a viral infection in the intestinal tract. There is no specific treatment. The disease will end by itself. For now, the main danger to your child is dehydration. During the first few hours of the illness, give clear liquids, such as Pedialyte. Try to give small quantities frequently, such as a teaspoon of liquid every minute or about an ounce of fluids every five to ten minutes. Medications may be prescribed by the physician for special cases. After an hour or two of fluids without vomiting, add rice cereal, toast, applesauce, or bananas and other more solid foods to the clear liquids. Call the physician or go to the hospital if vomiting increases or blood appears in the bowel movement or vomitus; if your child fails to improve, or if signs of dehydration occur (no wet diapers for eight to twelve hours, tongue and mouth become dry, not acting as alert as usual). These follow-up with your dimensional engineer and primary care provider for further evaluation in the next 24 to 40 hours. You were given IV fluids, Dilaudid, Solu-Medrol, Zofran, Phenergan to manage her symptoms. Please remember to take a stool softener when you are taking narcotics as a can cause constipation due to slowing of the bowels. all of your labs today were normal, there is no signs of dehydration in your lab work. Your urinalysis showed trace leukoesterase which could mean you could have the very beginnings of a UTI. Urine culture is pending. Due to having comorbidities with your lupus, seizures, osteoporosis, we will empirically start antibiotics twice a day for 5 days, the urine culture will be back in that time to give us further guidance as to if you need more antibiotic or if it is treated sufficiently. Please call your dimensional engineer for your lupus flare as they may need to increase or modify some of your medications. please continue taking her medications as prescribed. Return immediately for any new or worsening symptoms. Follow up with primary care provider, call tomorrow to make followup appointment. Prescriptions: Nitrofurantoin Monohyd/M-Cryst [Macrobid 100 mg Capsule] 100 mg PO BID #10 cap Promethazine HCl [Phenergan 25 mg Tablet] 1 - 2 tab PO Q6H PRN #15 tablet PRN Reason: Referrals: BEBETO CANSECO DO [NO LOCAL MD] - Follow up as needed KIKA AVILA MD [COMMUNITY BASED STAFF] - Follow up in 3-5 days
[2020-06-08] MEDS ORDERED: ONDANSETRON HCL INJ/PF 4 MG/2 ML SDV IV ONE (10:56)
[2020-06-08] MEDS ORDERED: NORMAL SALINE 1000 ML 1,000 ML IV ONE (10:56)
[2020-06-08] MEDS ORDERED: HYDROMORPHONE HCL INJ/PF 2 MG/ML AMPULE IV ONE (11:06)
[2020-06-08 11:45] LABS: ABSOLUTE EOSINOPHILS # (AUTO) 0.4 10^3/uL (0.0-0.6); ABSOLUTE LYMPHOCYTES (AUTO) 2.4 10^3/uL (0.5-4.7); ABSOLUTE MONOCYTES (AUTO) 0.6 10^3/uL (0.1-1.4); ABSOLUTE NEUT (AUTO) 3.4 10^3/uL (1.7-8.2); BASOPHILS % (AUTO) 0.2 % (0-2); EOSINOPHILS % (AUTO) 5.7 % (0-6); HEMATOCRIT 31.2 % (36.0-47.0); HEMOGLOBIN 10.5 g/dL (12.0-15.5); LYMPHOCYTES % (AUTO) 34.9 % (13-45); MEAN CORPUSCULAR HEMOGLOBIN 30.5 pg (27.0-33.4); MEAN CORPUSCULAR HGB CONC 33.7 g/dL (32.0-36.0); MEAN CORPUSCULAR VOLUME 91 fl (80-97); MONOCYTES % (AUTO) 8.9 % (3-13); PLATELET COUNT 161 10^3/uL (150-450); RED BLOOD COUNT 3.45 10^6/uL (3.72-5.28); RED CELL DISTRIBUTION WIDTH 12.7 % (11.5-14.0); SEGMENTED NEUTROPHILS % (AUTO) 50.3 % (42-78); TOTAL CELLS COUNTED % (AUTO) 100 %; WHITE BLOOD COUNT 6.7 10^3/uL (4.0-10.5)
[2020-06-08 12:05] LABS: ALBUMIN 3.7 g/dL (3.5-5.0); ALKALINE PHOSPHATASE 66 U/L (38-126); ANION GAP 6 (5-19); ASPARTATE AMINO TRANSFERASE 18 U/L (14-36); BILIRUBIN,DIRECT 0.2 mg/dL (0.0-0.4); BILIRUBIN,TOTAL 0.5 mg/dL (0.2-1.3); BLOOD UREA NITROGEN 6 mg/dL (7-20); C-REACTIVE PROTEIN 9.9 mg/L (<10.0); CALCIUM 8.4 mg/dL (8.4-10.2); CARBON DIOXIDE 22 mmol/L (22-30); CHLORIDE 111 mmol/L (98-107); GLUCOSE 107 mg/dL (75-110); POTASSIUM 3.8 mmol/L (3.6-5.0); TOTAL PROTEIN 8.4 g/dL (6.3-8.2)
[2020-06-08] MEDS ORDERED: PROMETHAZINE HCL INJ 25 MG/1 ML VIAL IV ONE (12:42)
[2020-06-08] MEDS ORDERED: METHYLPREDNISOLONE INJ 125 MG/2 ML SDV IV ONE (12:42)
[2020-06-08] MEDS ORDERED: OXYCODONE HCL IR 5 MG TABLET PO ONE (12:43)
[2020-06-08 13:15] LABS: APPEARANCE,URINE CLEAR; BILIRUBIN,URINE NEGATIVE (NEGATIVE); COLOR,URINE STRAW; GLUCOSE, URINE NEGATIVE (NEGATIVE); KETONES,URINE NEGATIVE (NEGATIVE); LEUKOCYTE ESTERASE,URINE TRACE (NEGATIVE); NITRITE,URINE NEGATIVE (NEGATIVE); PROTEIN,URINE NEGATIVE (NEGATIVE); URINE SPECIFIC GRAVITY 1.003; UROBILINOGEN,URINE NEGATIVE mg/dL (<2.0)
== END 2020-06-08 14:10 | disposition home or self-care (01) ==
LOC: ER 08:50
DX: D64.9 Anemia, unspecified (principal); G89.29 Other chronic pain; L93.2 Other local lupus erythematosus; M79.10 Myalgia, unspecified site; R11.10 Vomiting, unspecified; Z79.891 Long term (current) use of opiate analgesic
CPT/HCPCS: 99284; 96361; 96374; 96375; 36415; 87086; 83690; 84703; 85025; 86140; 80053; 81001; J2930; J1170; J2550; J2405; J7030; A9270; J1642

== ENCOUNTER 2020-07-09 14:49 | Emergency (ER) | payer MEDICARE, MEDICAID ==
[2020-07-09] MEDS ORDERED: NORMAL SALINE 1000 ML 1,000 ML IV ONE (15:41)
[2020-07-09] MEDS ORDERED: ONDANSETRON HCL INJ/PF 4 MG/2 ML SDV IV ONE (15:41)
--- NOTE | 2020-07-09 15:48 | ER Document Report ---
ED Medical Screen (RME) - General Chief Complaint: Nausea/Vomiting/Diarrhea Stated Complaint: NAUSEA,VOMITING,DIARRHEA Time Seen by Provider: 07/09/20 15:24 Primary Care Provider: MAREK FUNG MD [Primary Care Provider] - Follow up as needed TRAVEL OUTSIDE OF THE [place] IN LAST 30 DAYS: No - HPI Notes: 07/09/20 15:44 25-year-old female with a history of lupus presents emergency room with nausea, vomiting and diarrhea that started 2 to 3 weeks ago. She thinks this is related to her lupus, suspect she is having a lupus exacerbation. Patient reports she is concerned about dehydration due to vomiting and having loose stool. She also reports she is having chest pain and chest tightness on both sides with shortness of breath which is been intermittent over the last 3 weeks. 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 I have greeted and performed a rapid initial assessment of this patient. A comprehensive ED assessment and evaluation of the patient, analysis of test results and completion of the medical decision making process will be conducted by additional ED providers. PHYSICAL EXAMINATION: GENERAL: Well-appearing, well-nourished and in no acute distress. HEAD: Atraumatic, normocephalic. EYES: Pupils equal round extraocular movements intact, conjunctiva are normal. NECK: Normal range of motion CV: s1, s2 regular LUNGS: No respiratory distress Musculoskeletal: Normal range of motion NEUROLOGICAL: Normal speech, normal gait. SKIN: Warm, Dry, normal turgor, no rashes or lesions noted. - Related Data Allergies/Adverse Reactions: shellfish derived Allergy (Severe, Verified 05/08/19 08:40) Anaphylaxis sumatriptan [From Imitrex] Allergy (Severe, Verified 04/22/20 13:32) Seizures ketorolac tromethamine [From Toradol] Allergy (Intermediate, Verified 05/08/19 08:40) Hives morphine [Morphine] Allergy (Intermediate, Verified 05/08/19 08:40) Hives sulfamethoxazole [From Bactrim] Allergy (Unknown, Verified 05/08/19 08:40) Pruritis trimethoprim [From Bactrim] Allergy (Unknown, Verified 05/08/19 08:40) Pruritis belimumab [From Benlysta] Allergy (Verified 05/08/19 08:40) rash Past Medical History - Past Medical History Cardiac Medical History: Reports: Hx DVT, Hx Hypertension, Hx Pulmonary Embolism Denies: Hx Coronary Artery Disease, Hx Heart Attack, Hx Hypercholesterolemia Pulmonary Medical History: Reports: Hx Asthma, Hx Bronchitis, Hx Pneumonia Denies: Hx COPD, Hx Tuberculosis Neurological Medical History: Reports: Hx Migraine, Hx Seizures - on Keppra last seizure January 2019. Denies: Hx Cerebrovascular Accident Endocrine Medical History: Denies: Hx Diabetes Mellitus Type 1, Hx Diabetes Mellitus Type 2, Hx Hyperthyroidism, Hx Hypothyroidism Renal/ Medical History: Denies: Hx Peritoneal Dialysis GI Medical History: Reports: Hx Gastritis, Hx Gastroesophageal Reflux Disease, Hx Ulcer, Hx Endoscopy. Denies: Hx Cirrhosis, Hx Hepatitis Musculoskeltal Medical History: Reports Hx Arthritis, Reports Hx Systemic Lupus Erythematosus Skin Medical History: Reports Hx Cellulitis Psychiatric Medical History: Reports: Hx Anxiety Denies: Hx Depression Infectious Medical History: Reports: Hx C-Diff, Hx MRSA. Denies: Hx Hepatitis Past Surgical History: Reports: Hx Abdominal Surgery - PEG tube Sheppard, Hx Neurologic Surgery - C-SPINE Fx STABILIZATION, Hx Oral Surgery, Hx Vascular Surgery - right upper chest portacath, Other - PEG placement 2, Port-A-Cath, odontoid fxr repair late 2017 [employer]. Denies: Hx Hysterectomy - Immunizations Immunizations up to date: Yes Hx Diphtheria, Pertussis, Tetanus Vaccination: Yes Physical Exam - Vital signs Vitals: Temp Pulse Resp BP Pulse Ox 98.7 F 72 16 147/106 H 100 07/09/20 15:15 07/09/20 15:15 07/09/20 15:15 07/09/20 15:15 07/09/20 15:15 Course - Vital Signs Vital signs: Temp Pulse Resp BP Pulse Ox 98.7 F 72 16 147/106 H 100 07/09/20 15:15 07/09/20 15:15 07/09/20 15:15 07/09/20 15:15 07/09/20 15:15 Doctor's Discharge - Discharge Referrals: MAREK FUNG MD [Primary Care Provider] - Follow up as needed
[2020-07-09] MEDS ORDERED: METHYLPREDNISOLONE INJ 125 MG/2 ML SDV IV ONE ×2 (15:56→22:30)
--- NOTE | 2020-07-09 20:50 | ER Document Report ---
Entered by FIONA LEIJA SCRIBE 07/09/202037 Acting as scribe for:BREANNE MALDONADO, DO ED General - General Mode of Arrival: Ambulatory Information source: Patient TRAVEL OUTSIDE OF THE [place] IN LAST 30 DAYS: No <BREANNE MALDONADO - Last Filed: 07/10/20 04:02> <ADAMS PUENTES - Last Filed: 07/10/20 07:28> - General Chief Complaint: Nausea/Vomiting/Diarrhea Stated Complaint: NAUSEA,VOMITING,DIARRHEA Time Seen by Provider: 07/09/20 15:24 Primary Care Provider: MAREK FUNG MD [Primary Care Provider] - 07/10/20 Notes: This 25 year old female patient with lupus and epilepsy presents to the emergency department today with complaints of nausea and vomiting, mentioning th at she has been unable to keep down her Plaquenil and Keppra. She complaints of a little bit of diarrhea as well as pain all over which is not unusual for her. Patient denies any sick contacts, fevers, or COVID exposure. (BREANNE MALDONADO) - Related Data Allergies/Adverse Reactions: shellfish derived Allergy (Severe, Verified 05/08/19 08:40) Anaphylaxis sumatriptan [From Imitrex] Allergy (Severe, Verified 04/22/20 13:32) Seizures ketorolac tromethamine [From Toradol] Allergy (Intermediate, Verified 05/08/19 08:40) Hives morphine [Morphine] Allergy (Intermediate, Verified 05/08/19 08:40) Hives sulfamethoxazole [From Bactrim] Allergy (Unknown, Verified 05/08/19 08:40) Pruritis trimethoprim [From Bactrim] Allergy (Unknown, Verified 05/08/19 08:40) Pruritis belimumab [From Benlysta] Allergy (Verified 05/08/19 08:40) rash Past Medical History - General Information source: Patient - Social History Smoking Status: Never Smoker Cigarette use (# per day): No Frequency of alcohol use: None Drug Abuse: None Lives with: Family Family History: Reviewed & Not Pertinent, CVA, Hypertension, Other - Lupus- mother - Past Medical History Cardiac Medical History: Reports: Hx DVT, Hx Hypertension, Hx Pulmonary Embolism Pulmonary Medical History: Reports: Hx Asthma, Hx Bronchitis, Hx Pneumonia Neurological Medical History: Reports: Hx Migraine, Hx Seizures - on Keppra last seizure January 2019 GI Medical History: Reports: Hx Gastritis, Hx Gastroesophageal Reflux Disease, Hx Ulcer, Hx Endoscopy Musculoskeletal Medical History: Reports Hx Arthritis, Reports Hx Systemic Lupus Erythematosus Skin Medical History: Reports Hx Cellulitis Psychiatric Medical History: Reports: Hx Anxiety Infectious Medical History: Reports: Hx C-Diff, Hx MRSA Past Surgical History: Reports: Hx Abdominal Surgery - PEG tube [place], Hx Neurologic Surgery - C-SPINE Fx STABILIZATION, Hx Oral Surgery, Hx Vascular Surgery - right upper chest portacath, Other - PEG placement 2, Port-A-Cath, odontoid fxr repair late 2016 [employer] - Immunizations Immunizations up to date: Yes Hx Diphtheria, Pertussis, Tetanus Vaccination: Yes Hx Pneumococcal Vaccination: 02/01/17 <BREANNE MALDONADO P - Last Filed: 07/10/20 04:02> Review of Systems - Review of Systems Constitutional: denies: Fever EENT: No symptoms reported Cardiovascular: No symptoms reported Respiratory: No symptoms reported Gastrointestinal: See HPI, Abdominal pain, Diarrhea, Nausea, Vomiting Genitourinary: No symptoms reported Female Genitourinary: No symptoms reported Musculoskeletal: See HPI, Muscle pain Skin: No symptoms reported Hematologic/Lymphatic: No symptoms reported Neurological/Psychological: See HPI -: Yes All other systems reviewed and negative <BREANNE MALDONADO P - Last Filed: 07/10/20 04:02> Physical Exam <BREANNE MALDONADO P - Last Filed: 07/10/20 04:02> - Vital signs Vitals: Temp Pulse Resp BP Pulse Ox 98.7 F 72 16 147/106 H 100 07/09/20 15:15 07/09/20 15:15 07/09/20 15:15 07/09/20 15:15 07/09/20 15:15 - Notes Notes: Physical Exam: General: Alert, appears well. HEENT: Normocephalic. Atraumatic. PERRL. Extraocular movements intact. Oropharynx clear. Neck: Supple. Non-tender. Respiratory: No respiratory distress. Clear and equal breath sounds bilaterally. Port in left anterior chest. Cardiovascular: Regular rate and rhythm. Abdominal: Mild epigastric tenderness to palpation. No distension. Normal Bowel Sounds. Back: No gross abnormalities. Extremities: Moves all four extremities. Upper extremities: Normal inspection. Normal ROM. Lower extremities: Normal inspection. No edema. Normal ROM. Neurological: Normal cognition. AAOx4. Normal speech. Psychological: Normal affect. Normal Mood. Skin: Warm. Dry. Normal color. (BREANNE MALDONADO) Course - Laboratory Result Diagrams: 07/09/20 21:39 07/09/20 21:39 - EKG Interpretation by Me EKG shows normal: Sinus rhythm Rate: Tachycardia Rhythm: NSR - Sinus Tachy [address] elevation or depression my inte rpretation. <BREANNE MALDONADO - Last Filed: 07/10/20 04:02> - Laboratory Result Diagrams: 07/09/20 21:39 07/09/20 21:39 <ADAMS PUENTES - Last Filed: 07/10/20 07:28> - Re-evaluation Re-evalutation: 07/10/20 01:05 MDM 25 year old female with nausea and vomiting. Lupus pt. Generalized abd pain accompanies n,v. Looks tremendously comfortable. Knows the dose of d ilaudid she would like. Unhappy with 0.5 mg. She'd like 1 mg routinely. Explained no. She does feel some better. I feel she may follow up and we discussed this and she expressed understanding. 07/10/20 04:02 156/112 and BP is dropping and pt is improved. She has return precautions. (BREANNE MALDONADO) - Vital Signs Vital signs: Temp Pulse Resp BP Pulse Ox 99.3 F 99 20 171/139 H 98 07/10/20 01:56 07/10/20 03:24 07/10/20 05:31 07/10/20 05:31 07/10/20 04:11 - Laboratory Laboratory results interpreted by me: 07/09/20 07/09/20 07/09/20 21:39 21:39 21:39 RBC 3.19 L Hgb 9.3 L Hct 28.4 L [place] % (Auto) 13.7 H Chloride 113 H Carbon Dioxide 20 L Lactic Acid 0.6 L C-Reactive Protein 10.8 H Total Protein 8.9 H Urine Protein Ur Leukocyte Esterase 07/09/20 22:15 RBC Hgb Hct [place] % (Auto) Chloride Carbon Dioxide Lactic Acid C-Reactive Protein Total Protein Urine Protein 100 H Ur Leukocyte Esterase SMALL H Discharge <BREANNE MALDONADO - Last Filed: 07/10/20 04:02> <ADAMS PUENTES - Last Filed: 07/10/20 07:28> - Discharge Clinical Impression: Tachycardia Nausea & vomiting Qualifiers: Vomiting type: unspecified Vomiting Intractability: non-intractable Qualified Code(s): R11.2 - Nausea with vomiting, unspecified Anemia Qualifiers: Anemia type: unspecified type Qualified Code(s): D64.9 - Anemia, unspecified SLE (systemic lupus erythematosus) Qualifiers: Systemic lupus erythematosus type: unspecified Systemic lupus erythematosus organ involvement: unspecified Qualified Code(s): M32.9 - Systemic lupus erythematosus, unspecified Condition: Stable Disposition: HOME, SELF-CARE Instructions: Antinausea Medication ([facility]), Diarrhea, Nonspecific ([facility]), Intravenous (IV) Fluids ([facility]), Vomiting ([facility]) Additional Instructions: See your doctor in follow up. Call today. Return here for chest pain, shortness of breath, other problems or concerns. Medicine has been sent to [facility] in [place]. Prescriptions: Prednisone 10 mg PO DAILY #21 tablet Promethazine HCl 12.5 mg RC TID #8 supp.rect Referrals: MAREK FUNG MD [Primary Care Provider] - 07/10/20 I personally performed the services described in the documentation, reviewed and edited the documentation which was dictated to the scribe in my presence, and it accurately records my words and actions.
[2020-07-09] MEDS ORDERED: PROMETHAZINE HCL INJ 25 MG/1 ML VIAL IV ONE ×2 (21:10→22:04)
[2020-07-09] MEDS ORDERED: LABETALOL HCL INJ 20 MG/4 ML DISP.SYRIN IV ONE (21:10)
[2020-07-09] MEDS ORDERED: HYDROMORPHONE HCL INJ/PF 2 MG/ML AMPULE IV ONE (21:10)
[2020-07-09 22:00] LABS: ABSOLUTE EOSINOPHILS # (AUTO) 0.1 10^3/uL (0.0-0.6); MEAN CORPUSCULAR HGB CONC 32.8 g/dL (32.0-36.0); TOTAL CELLS COUNTED % (AUTO) 100 %; WHITE BLOOD COUNT 6.3 10^3/uL (4.0-10.5)
[2020-07-09 22:05] LABS: ABSOLUTE LYMPHOCYTES (AUTO) 2.3 10^3/uL (0.5-4.7); ABSOLUTE MONOCYTES (AUTO) 0.9 10^3/uL (0.1-1.4); BASOPHILS % (AUTO) 0.8 % (0-2); HEMATOCRIT 28.4 % (36.0-47.0); HEMOGLOBIN 9.3 g/dL (12.0-15.5); LYMPHOCYTES % (AUTO) 37.4 % (13-45); MEAN CORPUSCULAR HEMOGLOBIN 29.3 pg (27.0-33.4); MEAN CORPUSCULAR VOLUME 89 fl (80-97); MONOCYTES % (AUTO) 13.7 % (3-13); RED BLOOD COUNT 3.19 10^6/uL (3.72-5.28); RED CELL DISTRIBUTION WIDTH 12.8 % (11.5-14.0); SEGMENTED NEUTROPHILS % (AUTO) 47.1 % (42-78)
[2020-07-09 22:19] LABS: ALBUMIN 3.5 g/dL (3.5-5.0); ALKALINE PHOSPHATASE 77 U/L (38-126); ANION GAP 10 (5-19); ASPARTATE AMINO TRANSFERASE 25 U/L (14-36); BILIRUBIN,DIRECT 0.2 mg/dL (0.0-0.4); BILIRUBIN,TOTAL 0.3 mg/dL (0.2-1.3); BLOOD UREA NITROGEN 10 mg/dL (7-20); C-REACTIVE PROTEIN 10.8 mg/L (<10.0); CALCIUM 8.8 mg/dL (8.4-10.2); CARBON DIOXIDE 20 mmol/L (22-30); CHLORIDE 113 mmol/L (98-107); GLUCOSE 93 mg/dL (75-110); POTASSIUM 3.9 mmol/L (3.6-5.0); TOTAL PROTEIN 8.9 g/dL (6.3-8.2)
[2020-07-09 22:41] LABS: POIKILOCYTOSIS 1+
[2020-07-09 22:42] LABS: PLATELET CLUMPS PRESENT; PLATELET COMMENT ADEQUATE; PLATELET COUNT 190 10^3/uL (150-450); SCHISTOCYTES 1+
[2020-07-09 22:43] LABS: TEAR DROP CELLS SLIGHT
[2020-07-09 22:44] LABS: APPEARANCE,URINE CLEAR; BILIRUBIN,URINE NEGATIVE (NEGATIVE); COLOR,URINE YELLOW; GLUCOSE, URINE NEGATIVE (NEGATIVE); KETONES,URINE NEGATIVE (NEGATIVE); LEUKOCYTE ESTERASE,URINE SMALL (NEGATIVE); NITRITE,URINE NEGATIVE (NEGATIVE); PROTEIN,URINE 100 mg/dL (NEGATIVE); URINE SPECIFIC GRAVITY 1.019; UROBILINOGEN,URINE NEGATIVE mg/dL (<2.0)
[2020-07-10] MEDS ORDERED: HYDROMORPHONE HCL INJ/PF 2 MG/ML AMPULE IV ONE (00:51)
[2020-07-10] MEDS ORDERED: PROMETHAZINE HCL INJ 25 MG/1 ML VIAL IV ONE (00:52)
[2020-07-10] MEDS ORDERED: METHYLPREDNISOLONE INJ 125 MG/2 ML SDV IV ONE (01:12)
[2020-07-10] MEDS ORDERED: LABETALOL HCL INJ 20 MG/4 ML DISP.SYRIN IV ONE (02:11)
[2020-07-10] MEDS ORDERED: ENALAPRILAT DIHYDRATE INJ/PF 1.25 MG/1 ML SDV IV ONE (02:21)
[2020-07-10 07:50] VITALS: BP 160/117
--- NOTE | 2020-07-10 07:58 | ER Document Report ---
Doctor's Note Notes: 07/10/20 08:14 I was asked by the nurse celebrity manager to see this patient who was discharged several hours ago and was apparently refusing to leave. The patient tells me that she has had nausea vomiting and diarrhea throughout the day every day for the past 2 to 3 weeks. Her lab work shows that she is not dehydrated. She states she has not had her Keppra in 3 days due to vomiting and her blood pressure is out of control. She also has severe pain all over, and extreme anxiety. She stated she had been trying to get appointments with her primary care provider and her crop quantitative geneticist, calling every day to try to get in. I tried to explain to her that I had come over to see about getting the treatment started that she needed which would be to give her Keppra through the IV, and blood pressure medicine. She then stated "I am not staying here". I asked her what she meant, she clarified that she was in fact leaving. The entire encounter was really disrupted with her wanting to complain about her lack of care, lack of attention, and considerable amount of cursing about the staff in the facility. I was able to determine that she has an appointment with her primary care provider tomorrow.
--- NOTE | 2020-07-10 15:16 | EKG REPORT ---
SEVERITY:- BORDERLINE ECG - SINUS TACHYCARDIA BORDERLINE PROLONGED QT INTERVAL : Confirmed by: Citlalli Falk MD 10-Jul-2020 15:15:39
== END 2020-07-10 08:11 | disposition home or self-care (01) ==
LOC: ER 14:49
DX: M32.9 Systemic lupus erythematosus, unspecified (principal); R00.0 Tachycardia, unspecified; R11.2 Nausea with vomiting, unspecified; R19.7 Diarrhea, unspecified; I10 Essential (primary) hypertension; Z86.14 Personal history of Methicillin resistant Staphylococcus aureus infection; Z93.1 Gastrostomy status; Z86.718 Personal history of other venous thrombosis and embolism; Z86.711 Personal history of pulmonary embolism
CPT/HCPCS: 93005; 96376 ×2; 99284; 96361; 96374; 96375 ×2; 36415; 83605; 83735; 85025; 86140; 80053; 81001; 84484; 93010; J3490 ×3; J2930 ×2; J1170 ×2; J2550 ×2; J7030; J1642